=== PATIENT | female | born 1950 | race Caucasian/White ===

== ENCOUNTER 2016-11-24 03:21 | Inpatient (IN) | payer OTHER, MEDICAID ==
[~2016-11-24] VITALS: Ht 157.5 cm; Wt 44.3 kg
[~2016-11-24 03:21] MED LIST: ACTI1TAB PO; ALBU17IN INH; ALBU83IN INH; ALDA25TA2 PO; AMLO5TAB2 PO; ASPI1TAB PO; ASPI81CH PO; ATEN50TA2 PO; ATIV1TAB10 PO; ATRO0.063 INH; AZIT250T3 PO; BACITAB3 PO; CALC1CAP31 PO; CEFT1INJ65 IV; CEPA5.4L2 MT; COZA100T2 PO; DRIS50002 PO; FURO40TA2 PO; INCR1INH INH; LEVA500T PO; LEVA750T PO; LEVO125T41 PO; LEVO88TA3 PO; LEXA1TAB PO; LORA1TAB PO; MINO25TA PO; NORV5TAB PO; OCEA0.654; PRED10PA PO; PRED10TA PO; PRED5TA PO; PROT1TAB2 PO; RENATAB6 PO; SODI325T9 PO; SYMB80INH INH; SYNT137T7 PO; TYLE325T5 PO; prednisone PO
[2016-11-24] MEDS ORDERED: IPRATROPIUM 0.5MG/ALBUTEROL 2.5MG INH SOL UD 3ML (DUONEB)(J7620) As Ordered ONE ×2 (03:27→05:16)
[2016-11-24] MEDS ORDERED: methylPREDNISolone INJ 125 MG/2 ML VIAL (J2930) As Ordered ONE (03:42)
[2016-11-24 03:57] LABS: ABG BASE EXCESS -1.5 (-2.0-2.0); ABG DEVICE NASAL CANN; ABG HCO3 23.7 MEQ/L (22.0-26.0); ABG PARTIAL PRESSURE CO2 41.6 mmHg (35.0-45.0); ABG PARTIAL PRESSURE O2 73.9 mmHg (75.0-100.0); ABG STANDARD HCO3 23.2 MEQ/L (22.0-26.0); ABG TOTAL CO2 24.9 MEQ/L (23.0-31.0); ABG pH (ARTERIAL) 7.373 UNITS (7.350-7.450)
[2016-11-24 04:01] LABS: BASO % 0.7 % (0.0-1.0); EOS # 0.3 K/mm3 (0.0-0.50); EOS % 3.6 % (0.0-3.0); LARGE UNSTAINED CELL # 0.1 K/mm3 (0.0-0.4); LARGE UNSTAINED CELL % 1.5 % (0.0-4.0); LYMPH # 1.1 K/mm3 (1.5-4.5); LYMPH % 14.5 % (24.0-44.0); MEAN CORPUSCULAR HEMOGLOBIN 29.4 pg (27.0-33.0); MEAN CORPUSCULAR HGB CONC 31.3 g/dl (32.0-36.5); MEAN CORPUSCULAR VOLUME 94.1 fl (80.0-96.0); MONO # 0.4 K/mm3 (0.0-0.8); MONO % 4.9 % (0.0-5.0); NEUTROPHILS # 5.7 K/mm3 (1.8-7.7); NEUTROPHILS % 74.9 % (36.0-66.0); PLATELET COUNT, AUTOMATED 128 k/mm3 (150-450); RED CELL DISTRIBUTION WIDTH 16.7 % (11.5-14.5); WHITE BLOOD COUNT 7.6 K/mm3 (4.0-10.0)
[2016-11-24 04:12] LABS: CALCIUM LEVEL 8.3 MG/DL (8.8-10.2); CREATININE FOR GFR 4.95 MG/DL (0.55-1.02); GLOMERULAR FILTRATION RATE 9.3 (>45); POTASSIUM SERUM 4.5 MEQ/L (3.5-5.1)
[2016-11-24] MEDS: HEPARIN SOD (PORCINE) 5000 UNITS/ML VIAL SC SCH ×3 (06:00→21:56)
[2016-11-24] MEDS ORDERED: ACETAMINOPHEN TAB 650MG DOSE (2X325MG) PO PRN (06:15)
[2016-11-24] MEDS ORDERED: ALBUTEROL SULFATE 2.5 MG/0.5 ML INH NEB SOLN NEB PRN (06:15)
[2016-11-24] MEDS ORDERED: PRED25TA PO (06:23)
[2016-11-24] MEDS ORDERED: LOSA25TA8 PO (06:23)
--- NOTE | 2016-11-24 07:36 | HPE ---
DATE OF ADMISSION: 11/24/2016 PRIMARY CARE PROVIDER: Sarah Pickard NP HISTORY OF PRESENT ILLNESS: The patient is a 66-year-old female with a past medical history significant for end stage renal disease on dialysis, chronic obstructive pulmonary disease (COPD), hypothyroidism, depression/anxiety, chronic tobacco abuse who presented to [facility] on 11/24/2016 for acute worsening of shortness of breath. The patient stated since yesterday night, she started having increasing shortness of breath and increased cough, and the patient has a recent sick contact. The patient's granddaughter and son's girlfriend who live in the same house recently had flu like symptoms. Denies any associated symptoms. The patient has a diagnosis of COPD, however she continues to smoke at home. When the patient arrived in the emergency room, the patient received Solu-Medrol 125 mg IV times one and DuoNeb nebulizer treatments times four, however the patient continued to have significant wheezes. Therefore, the hospitalist team was called for admission. ALLERGIES: 1. CODEINE (gastrointestinal (GI) upset). 2. LISINOPRIL (angioedema of the tongue). HOME MEDICATIONS: - Synthroid 0.137 mg by mouth daily - Protonix 40 mg by mouth daily - Activella 1-0.5 mg one tablet by mouth daily - Ventolin two puffs inhalation every 4 hours as needed for shortness of breath - aspirin 81 mg by mouth daily - Lexapro 10 mg by mouth at bedtime - INCRUSE Ellipta 62.5 mcg inhalation twice a day - Atrovent 2 puffs inhalation four times a day as needed for shortness of breath - lorazepam 1 mg by mouth twice a day - multivitamin one tablet by mouth daily PAST MEDICAL HISTORY: Polycystic kidney disease. End stage renal disease on hemodialysis. Dialysis days are Tuesday, Tuesday, and Tuesday. COPD. Hypothyroidism. Anxiety/depression. Chronic tobacco abuse. PAST SURGICAL HISTORY: Right femur repair. Left forearm dialysis graft. Colonoscopy [place] [address] Ontiveros. SOCIAL HISTORY: Patient continues to smoke. Currently the patient smokes half a pack daily. At the most, the patient smoked more then one pack daily. The patient started smoking since 16 years old. Denies alcohol use. Denies any recreational drug use. REVIEW OF SYSTEMS: GENERAL: No fever, no chills. HEENT: No vision changes. No auditory changes. CARDIOVASCULAR: No chest pain. No palpitations. RESPIRATORY: Acute worsening shortness of breath since yesterday night. The patient has a diagnosis of COPD and increased cough frequency. GASTROINTESTINAL (GI): No nausea. No vomiting. No abdominal pain. No diarrhea. MUSCULOSKELETAL: No muscle pain or joint pain. NEUROLOGICAL: No numbness, no tingling. OBJECTIVE: VITAL SIGNS: Blood pressure is 179/104, pulse is 97, respirations 22, temperature 98.8, pulse oximetry is 98% with 1 liter nasal cannula. Body weight is 46.27 kg. Body height is 157.48 cm. GENERAL: Mild distress secondary to respiratory distress. Alert and oriented times three. HEENT: Normocephalic, atraumatic. Extraocular motors grossly intact. CARDIOVASCULAR: Very distant heart sounds. Positive S1 and S2, regular rate. Positive heart murmur. LUNGS: Significant expiratory wheezes throughout. No crackles can be appreciated. GASTROINTESTINAL (GI): Abdomen soft, nontender, nondistended. Bowel sounds present. No rebound, no guarding. EXTREMITIES: Mild trace edema, especially near the ankles. Otherwise, no significant findings. LABORATORY DATA: WBC 7.6, hemoglobin 11.5, hematocrit 36.7, platelet count 128. Sodium is 143, potassium 4.5, chloride is 10, carbon dioxide 28, BUN 26, creatinine 4.95, GFR is 9.3, fasting glucose 85, calcium 8.3, total CK is 98, Troponin I is 0.02, BNP is 727. Blood cultures are pending. Chest x-ray shows hyperventilation and COPD. Official results pending. ASSESSMENT/PLAN: 1. COPD exacerbation. The patient will be admitted to the medical/surgical floor on inpatient status. The patient will continue on IV Solu-Medrol. Will taper slowly. The patient will be on Rocephin and azithromycin. The patient will have breathing treatments as needed. 2. End stage renal disease. Will consult Dr. Chris Garces the petal shaper hand for dialysis today. 3. History of hypertension. Continue home blood pressure medications. 4. Hypothyroidism. Continue Synthroid. 5. History of polycystic kidney disease. 6. Anxiety/depression. Continue Lexapro. 7. Chronic tobacco abuse. The patient will be on nicotine patch. 8. Deep vein thrombosis (DVT) prophylaxis. The patient will be on heparin. MTDD
--- NOTE | 2016-11-24 07:42 | REP ---
Clinical: Shortness of breath . Comparison: 11/12/2016 . Findings: The mediastinum and cardiac silhouette are stable and within normal limits for portable technique. The lung louis are stable and clear without acute consolidation, effusion, or pneumothorax. Skeletal structures are intact. Impression: No acute cardiopulmonary process. Signed by Colin Mathew MD 11/24/2016 07:34 A
--- NOTE | 2016-11-24 08:39 | EDDOCDS ---
Nurse's Notes [facility] Name: Karina Blackmon Age: 66 yrs Sex: Female : 1950 Arrival Date: 11/24/2016 Time: 03:21 Bed 1 Private MD: Asa Mena Diagnosis: Hypoxemia;Chronic obstructive pulmonary disease with (acute) exacerbation;End stage renal disease Presentation: 11/24 03:38 Acuity: THIEN Level 2 nov 03:39 Presenting complaint: EMS states: FAMILY WAS CALLED BY PT COMPLAINING OF NOT FEELING neel well and increasing SOB. Went to bed earlier without complaints. pt states gradual increasing SOB x 2 hrs. Adult Sepsis Screening: The patient does not have new or worsening altered mentation. Patient has a respiratory rate of greater than or equal to 22 (1 point). Systolic blood pressure is greater than 100. Patient has a qSOFA score of 1- Negative Sepsis Screen. Suicide/Homicide risk assessment- the patient denies having any suicidal and/or homicidal ideations and does not present with any other emotional, behavioral or mental health complaints. Status: Patient is not a service supervisor or dependent. Transition of care: patient was not received from another setting of care. 03:39 Acuity: THIEN Level 2 neel 03:39 Method Of Arrival: Ambulance neel Triage Assessment: 03:42 General: Appears uncomfortable, Behavior is appropriate for age, cooperative. Pain: neel Denies pain. Cardiovascular: Rhythm is sinus rhythm. Respiratory: Onset: The symptoms/episode began/occurred 2 hrs, Airway is patent Respiratory effort is labored, Respiratory pattern is symmetrical, tachypnea Breath sounds with wheezes bilaterally. in right upper lobe, left upper lobe, right middle lobe, left lower lobe and right lower lobe. GI: Abdomen is distended. : Reports Renal Disease on Dialysis. 03:45 General: Strong bruit noted to left wrist forearm dialysis shunt.. neel Historical: - Allergies: Codeine Sulfate (Upset stomach); Lisinopril (angioedema to tongue); - Home Meds: 1. Activella 1-0.5 mg oral tab 1 tab once daily (Last dose: 11/23/2016 07:00) 2. aspirin 81 mg Oral TbEC 1 tab once daily (Last dose: 11/23/2016 07:00) 3. Atrovent 18 mcg/actuation Inhl aero 2 puff four times a day (Last dose: 11/23/2016 19:00) 4. albuterol sulfate 90 mcg/actuation Inhl aepb 2 puffs every 4-6 hours (Last dose: 11/23/2016 19:00) 5. Ativan 1 mg Oral tab 1 tab once daily (Last dose: 11/23/2016 19:00) 6. levothyroxine 100 mcg Oral tab once daily (Last dose: 11/23/2016 06:00) 7. Lexapro 10 mg Oral tab 1 tab once daily (Last dose: 11/23/2016 19:00) 8. minoxidil 2.5 mg Oral tab once daily 9. prednisone 2.5 mg oral tab 1 tab once daily (Last dose: 11/23/2016 07:00) 10. Arielle-Roby Rx 1-60-300 mg-mg-mcg oral tab daily (Last dose: 11/23/2016 07:00) 11. Tenormin 50 mg oral tab 1 tab once daily - PMHx: COPD; Hypertension; Hypothyroidism; Polycystic Kidney Disease; Renal Failure with Dialysis; - PSHx: Hip Arthroplasty, Right; - The history from nurses notes was reviewed: but there are no nursing notes, or only partial notes available at the time of my charting. - Social history: Smoking status: Patient uses tobacco products, current every day smoker. No barriers to communication noted, The patient speaks fluent Uzbek, Speaks appropriately for age. - : The pt / caregiver states he / she is not on anticoagulants. Home medication list is obtained from the patient. - Immunization history:: All immunizations up-to-date. - Exposure Risk Screening:: None identified. - Family history: Not pertinent. - Social history:: the patient is a former smoker, the patient does not drink alcohol. Screenin:48 Screening information is obtained from the patient. Fall risk: At risk due to age. neel Assistance ADL's: Requires assistance with housework, assistance is provided by family members. Abuse/DV Screen: The patient / caregiver reports he/she is: not in a situation that causes fear, pain or injury. Nutritional screening: On renal diet. Advance Directives: Currently, there is no health care proxy. There is no active DNR order. There is no living will. Advance directive information has not previously been placed in an [facility] medical record. home support is adequate. Assessment: 03:46 General: See triage assessment. General: Appears in no apparent distress, Behavior is neel appropriate for age, cooperative, pleasant. Neurological: No deficits noted. Cardiovascular: Rhythm is sinus rhythm. Cardiovascular: Heart tones present. 04:31 Reassessment: Patient appears in no apparent distress at this time. Patient states neel symptoms have improved. General: Behavior is appropriate for age, cooperative. Neurological: No deficits noted. Cardiovascular: Rhythm is sinus rhythm. Respiratory: Airway is patent Respiratory effort is even, unlabored, Respiratory pattern is regular, Breath sounds with wheezes expiratory. GI: Abdomen is distended. Derm: Skin is pink, warm & dry. 05:30 Reassessment: Patient appears in no apparent distress at this time. General: Appears neel comfortable, Behavior is appropriate for age, cooperative. Neurological: No deficits noted. Cardiovascular: Rhythm is sinus rhythm. Respiratory: Airway is patent Respiratory effort is even, unlabored, Respiratory pattern is regular, Breath sounds with wheezes bilaterally. Derm: Skin is pink, warm & dry. 06:54 Reassessment: Patient appears in no apparent distress at this time. General: Appears in neel no apparent distress, comfortable, Behavior is appropriate for age, cooperative. Neurological: No deficits noted. Cardiovascular: Rhythm is sinus rhythm. Respiratory: Airway is patent Respiratory effort is even, unlabored. Derm: Skin is pink, warm & dry. 07:30 Reassessment: Patient appears in no apparent distress at this time. Patient denies pain kr3 at this time. 08:22 Reassessment: Patient appears in no apparent distress at this time. Pain: Denies pain. kr3 Respiratory: Airway is patent Respiratory effort is even, unlabored. Derm: Skin is pink, warm & dry. Vital Signs: 03:26 BP 209 / 121; Pulse 110; Resp 18 S; Temp 98.8(TE); Pulse Ox 97% on R/A; Weight 46.27 kg jp4 (R); Height 5 ft. 2 in. (157.48 cm) (R); Pain 0/10; 04:00 BP 188 / 110 (auto/); neel 04:00 Pulse 88 MON; Resp 24 S; Pulse Ox 100% on 1 lpm NC; neel 04:15 BP 171 / 103 (auto/); neel 04:15 Pulse 81 MON; Resp 22 S; Pulse Ox 97% on 1 lpm NC; neel 04:30 BP 169 / 104 (auto/); neel 04:30 Pulse 85 MON; Resp 18 S; Pulse Ox 97% on 1 lpm NC; neel 04:45 BP 179 / 99 (auto/); neel 04:45 Pulse 81 MON; Resp 22 S; Pulse Ox 99% on 1 lpm NC; neel 05:00 BP 170 / 99 (auto/); neel 05:00 Pulse 82 MON; Resp 20 S; Pulse Ox 96% on 1 lpm NC; neel 05:15 BP 178 / 102 (auto/); neel 05:15 Pulse 87 MON; Resp 24 S; Pulse Ox 94% on 1 lpm NC; neel 05:30 BP 179 / 104 (auto/); neel 05:30 Pulse 97 MON; Resp 22 S; Pulse Ox 98% on 1 lpm NC; neel 05:45 BP 180 / 103 (auto/); neel 05:45 Pulse 89 MON; Resp 22 S; Pulse Ox 94% on 1 lpm NC; neel 06:00 BP 167 / 101 (auto/); neel 06:00 Pulse 97 MON; Resp 20 S; Pulse Ox 96% on 1 lpm NC; neel 06:15 BP 180 / 102 (auto/); neel 06:16 Pulse 91 MON; Resp 20 S; Pulse Ox 96% on 1 lpm NC; neel 06:30 BP 180 / 102 (auto/); neel 06:30 Pulse 85 MON; Resp 18 S; Pulse Ox 95% on 1 lpm NC; neel 06:45 BP 179 / 100 (auto/); neel 06:45 Pulse 83 MON; Resp 20 S; Pulse Ox 97% on 1 lpm NC; neel 07:26 BP 173 / 92; Pulse 80; Resp 16; Temp 98.9(O); Pulse Ox 96% on 1 lpm NC; Pain 0/10; kr3 07:45 BP 177 / 106 (auto/); kr3 07:45 Pulse 93 MON; kr3 08:00 BP 174 / 105 (auto/); kr3 08:00 Pulse 81 MON; kr3 08:15 BP 177 / 103 (auto/); kr3 08:15 Pulse 81 MON; kr3 03:26 Body Mass Index 18.66 (46.27 kg, 157.48 cm) 4 Vitals: 08:22 Log In Time N/A - ambulance arrival. kr3 ED Course: 03:22 Patient visited by Vasile Alfredo, Maintenance Mechanic Helper. ml3 03:22 Patient moved to Waiting ml3 03:23 Asa Mena is Private Physician. ml3 03:23 Tia Valverde,RN is Primary Nurse. ml3 03:23 Julio Grace MD is Attending Physician. pc 03:23 Patient visited by Julio Grace MD. pc 03:23 Patient moved to 1 ml3 03:27 Patient visited by Timo Foster. jp4 03:30 Patient visited by Ayde Del Valle PCA. lizeth 03:30 EKG done. (by ED staff). Reviewed by Julio Grace MD. lizeth 03:35 Inserted saline lock: 20 gauge in right forearm and blood collected. neel 03:38 Triage Initiated nov 03:50 BLOOD CULTURES Sent. neel 03:51 -Arterial Blood Gas Sent. neel 04:28 Patient visited by Tia Valverde RN. neel 05:38 Patient visited by Julio Grace MD. pc 05:53 Tiffanie Monroe medical technologist clinical. ys2 05:53 Tiffanie Monroe is Hospitalizing Provider. pc 06:24 [facility] Payment Agreement was scanned into [employer] and attached to record. jp5 07:07 INFLUENZA A&B RAPID ANTIGEN Sent. kr3 07:09 Primary Nurse role handed off by Tia Valverde,RN neel 07:26 The patient / caregiver is instructed regarding the plan of care and ED course. Patient lilly has correct armband on for positive identification. Placed in gown. Bed in low position. Call light in reach. Side rails up X2. equipment monitor phototypesetting on. Pulse ox on. NIBP on. 07:44 Chest, 1 View Returned. EDMS 08:18 No procedures done that require assistance. kr3 Administered Medications: 03:28 Drug: Albuterol-Ipratropium 1 neb [ipratropium-albuterol 0.5 mg-3 mg(2.5 mg base)/3 mL jh6 nebulization soln (1 neb)] Route: Nebulizer; 03:45 Drug: Solu-MEDROL 125 mg [Solu-Medrol 500 mg intravenous solution (125 mg)] Route: IVP; lf1 Site: right wrist; 03:52 Drug: Albuterol-Ipratropium 1 neb [ipratropium-albuterol 0.5 mg-3 mg(2.5 mg base)/3 mL [facility] nebulization soln (1 neb)] Route: Nebulizer; 04:30 Drug: Albuterol-Ipratropium 1 neb [ipratropium-albuterol 0.5 mg-3 mg(2.5 mg base)/3 mL 6 nebulization soln (1 neb)] Route: Nebulizer; 05:18 Drug: Albuterol-Ipratropium 1 neb [ipratropium-albuterol 0.5 mg-3 mg(2.5 mg base)/3 mL [facility] nebulization soln (1 neb)] Route: Nebulizer; Output: 06:18 Urine: 200.00ml; Stool: 1 (Formed Stool) ; Total: 200.00ml. neel RT: 03:25 O2 via Venturi mask \T\ 3L/min - 28%. [facility] 03:28 Initial Med Neb Given as ordered Patient was instructed and evaluated on procedure 6 Patient tolerated procedure well without adverse effect. Respiratory: Airway is patent Respiratory effort is even, labored, Respiratory pattern is regular symmetrical, Breath sounds are coarse in right upper lobe and left upper lobe Breath sounds are diminished in right upper lobe, left upper lobe, right middle lobe, left lower lobe and right lower lobe Breath sounds with wheezes in right upper lobe, left upper lobe, right middle lobe, left lower lobe and right lower lobe at expiration. 03:45 ABG's drawn from right radial artery pressure held for 5 minutes no bleeding noted [facility] pressure bandage applied specimen sent pt. tolerated well. 03:52 Subsequent Med Neb Given as ordered Patient was reinforced on procedure Patient 6 tolerated procedure well without adverse effect. Respiratory: Airway is patent Respiratory effort is even, unlabored, Respiratory pattern is regular symmetrical, Breath sounds are diminished in right upper lobe, left upper lobe, right middle lobe, left lower lobe and right lower lobe Breath sounds with wheezes in right upper lobe, left upper lobe, right middle lobe, left lower lobe and right lower lobe at expiration. 04:33 Subsequent Med Neb Given as ordered Patient was reinforced on procedure Patient 6 tolerated procedure well without adverse effect. O2 via nasal cannula \T\ 1L/min. Respiratory: Airway is patent Respiratory effort is even, unlabored, Respiratory pattern is regular symmetrical, Breath sounds with wheezes in right upper lobe, left upper lobe, right middle lobe, left lower lobe and right lower lobe at expiration. 05:18 Subsequent Med Neb Given as ordered Patient was reinforced on procedure Patient jh6 tolerated procedure well without adverse effect. Respiratory: Airway is patent Respiratory effort is even, unlabored, Respiratory pattern is regular symmetrical, Breath sounds are diminished in left lower lobe and right lower lobe Breath sounds with wheezes in right upper lobe, left upper lobe, right middle lobe, left lower lobe and right lower lobe at expiration. Order Results: Lab Order: -Arterial Blood Gas; SPEC'M 11/24/16 03:52 Test: ABG pH (ARTERIAL); Value: 7.373; Range: 7.350-7.450; Units: UNITS; Status: F Test: ABG PARTIAL PRESSURE CO2; Value: 41.6; Range: 35.0-45.0; Units: mmHg; Status: F Test: ABG PARTIAL PRESSURE O2; Value: 73.9; Range: 75.0-100.0; Abnormal: Below low normal; Units: mmHg; Status: F Test: ABG TOTAL CO2; Value: 24.9; Range: 23.0-31.0; Units: MEQ/L; Status: F Test: ABG HCO3; Value: 23.7; Range: 22.0-26.0; Units: MEQ/L; Status: F Test: ABG BASE EXCESS; Value: -1.5; Range: -2.0-2.0; Status: F Test: ABG STANDARD HCO3; Value: 23.2; Range: 22.0-26.0; Units: MEQ/L; Status: F Test: ABG O2 SATURATION; Value: 94.9; Range: 95.0-99.0; Abnormal: Below low normal; Units: %; Status: F Test: ABG DEVICE; Value: NASAL PAULA; Status: F Lab Order: B-Type Natiuretic Peptide; SPEC'11/24/16 03:36 Test: BRAIN NATRIURETIC PEPTIDE; Value: 727; Range: <100; Abnormal: Above high normal; Units: PG/ML; Status: F Lab Order: Basic Metabolic Profile; SPEC'11/24/16 03:36 Test: GLUCOSE, FASTING; Value: 85; Range: 80-110; Units: MG/DL; Status: F Test: BLOOD UREA NITROGEN; Value: 26; Range: 7-18; Abnormal: Above high normal; Units: MG/DL; Status: F Test: CREATININE FOR GFR; Value: 4.95; Range: 0.55-1.02; Abnormal: Above high normal; Units: MG/DL; Status: F Test: GLOMERULAR FILTRATION RATE; Value: 9.3; Range: >45; Abnormal: Below low normal; Status: F Test: SODIUM LEVEL; Value: 143; Range: 136-145; Units: MEQ/L; Status: F Test: POTASSIUM SERUM; Value: 4.5; Range: 3.5-5.1; Units: MEQ/L; Status: F Test: CHLORIDE LEVEL; Value: 107; Range: 98-107; Units: MEQ/L; Status: F Test: CARBON DIOXIDE LEVEL; Value: 28; Range: 21-32; Units: MEQ/L; Status: F Test: ANION GAP; Value: 8; Range: 8-16; Units: MEQ/L; Status: F Test: CALCIUM LEVEL; Value: 8.3; Range: 8.8-10.2; Abnormal: Below low normal; Units: MG/DL; Status: F Test Note: ; Units are mL/min/1.73 m2 Chronic Kidney Disease Staging per NKF: Stage I & II GFR >=60 Normal to Mildly Decreased Stage III GFR 30-59 Moderately Decreased Stage IV GFR 15-29 Severely Decreased Stage V GFR <15 Very Little GFR Left ESRD GFR <15 on EARLY MORNING BABYSITTER Lab Order: CBC with Diff; SPEC'M 11/24/16 03:36 Test: WHITE BLOOD COUNT; Value: 7.6; Range: 4.0-10.0; Units: K/mm3; Status: F Test: RED BLOOD COUNT; Value: 3.90; Range: 4.00-5.40; Abnormal: Below low normal; Units: M/mm3; Status: F Test: HEMOGLOBIN; Value: 11.5; Range: 12.0-16.0; Abnormal: Below low normal; Units: g/dl; Status: F Test: HEMATOCRIT; Value: 36.7; Range: 36.0-47.0; Units: %; Status: F Test: MEAN CORPUSCULAR VOLUME; Value: 94.1; Range: 80.0-96.0; Units: fl; Status: F Test: MEAN CORPUSCULAR HEMOGLOBIN; Value: 29.4; Range: 27.0-33.0; Units: pg; Status: F Test: MEAN CORPUSCULAR HGB CONC; Value: 31.3; Range: 32.0-36.5; Abnormal: Below low normal; Units: g/dl; Status: F Test: RED CELL DISTRIBUTION WIDTH; Value: 16.7; Range: 11.5-14.5; Abnormal: Above high normal; Units: %; Status: F Test: PLATELET COUNT, AUTOMATED; Value: 128; Range: 150-450; Abnormal: Below low normal; Units: k/mm3; Status: F Test: NEUTROPHILS %; Value: 74.9; Range: 36.0-66.0; Abnormal: Above high normal; Units: %; Status: F Test: LYMPH %; Value: 14.5; Range: 24.0-44.0; Abnormal: Below low normal; Units: %; Status: F Test: MONO %; Value: 4.9; Range: 0.0-5.0; Units: %; Status: F Test: EOS %; Value: 3.6; Range: 0.0-3.0; Abnormal: Above high normal; Units: %; Status: F Test: BASO %; Value: 0.7; Range: 0.0-1.0; Units: %; Status: F Test: LARGE UNSTAINED CELL %; Value: 1.5; Range: 0.0-4.0; Units: %; Status: F Test: NEUTROPHILS #; Value: 5.7; Range: 1.8-7.7; Units: K/mm3; Status: F Test: LYMPH #; Value: 1.1; Range: 1.5-4.5; Abnormal: Below low normal; Units: K/mm3; Status: F Test: MONO #; Value: 0.4; Range: 0.0-0.8; Units: K/mm3; Status: F Test: EOS #; Value: 0.3; Range: 0.0-0.50; Units: K/mm3; Status: F Test: BASO #; Value: 0.0; Range: 0.0-0.2; Units: K/mm3; Status: F Test: LARGE UNSTAINED CELL #; Value: 0.1; Range: 0.0-0.4; Units: K/mm3; Status: F Lab Order: Cardiac Injury Profile; SPEC'M 11/24/16 03:36 Test: CPK CREATINE PHOSPHOKINASE; Value: 98; Range: 26-192; Units: U/L; Status: F Test: CK-MB VALUE MASS; Value: 2.5; Range: 0.0-3.6; Units: NG/ML; Status: F Test: MB/CK RELATIVE INDEX; Value: 2.55; Range: < OR =4; Status: F Test Note: ; DIAGNOSIS CRITERIA MMB ng/ml Relative Index (RI) NON-AMI < or = 5 N/A [place] ZONE > 5 < or = 4 AMI > 5 > 4 Lab Order: Troponin; SPEC'M 11/24/16 03:36 Test: TROPONIN I; Value: 0.02; Range: < 0.10; Units: NG/ML; Status: F Test Note: ; Troponin I Reference Interval for [employer] LOCI: 99th Percentile= 0.00-0.045 ng/ml Risk Stratification: <= 0.10 ng/ml Decreased Risk for Adverse Clinical Events. 0.10-1.50 ng/ml Increased Risk for Adverse Clinical Events. Evaluation of additional criterion and/or repeat testing in 2-6 hours is suggested to rule out myocardial damage. >= 1.50 ng/ml Indicative of Myocardial Injury. Lab Order: INFLUENZA A&B RAPID ANTIGEN; SPEC'M 11/24/16 07:06 Test: INFLUENZA A RAPID SCR by ICA; Value: INFLUENZA A RESULTS NEGATIVE; Status: F Test: INFLUENZA A RAPID SCR by ICA; Value: Comments:; Status: F Test: INFLUENZA B RAPID SCR by ICA; Value: INFLUENZA B RESULTS NEGATIVE; Status: F Test Note: ; The Influenza test is a direct rapid immunoassay for the qualitative detection of Influenza viral antigen. Cell culture (Viral Culture) testing should be considered to confirm NEGATIVE results and to assist in detecting other viruses that can provide similar clinical symptoms. Please contact the lab within 24 hours ([phone]) if confirmatory testing is desired. Radiology Order: Chest, 1 View Test: Chest, 1 View REASON FOR EXAMINATION: Shortness of Breath; Clinical: Shortness of breath .; ; Comparison: 11/12/2016 .; ; Findings:; The mediastinum and cardiac silhouette are stable and within normal limits for; portable technique. The lung louis are stable and clear without acute; consolidation, effusion, or pneumothorax. Skeletal structures are intact.; ; Impression:; No acute cardiopulmonary process.; ; ; Signed by; Colin Mathew MD 11/24/2016 07:34 A; Outcome: 05:53 Decision to Hospitalize by Provider. 08:18 Discharge Assessment: patient administered narcotics - no. The following High Risk kr3 Discharge criteria are identified: None. Admitted to Med/Surg accompanied by tech, via stretcher, with oxygen, with chart. Condition: stable. No special radiology studies were completed. Property :Personal belongings accompany Pt. 08:38 Patient left the ED. kr3 Signatures: Dispatcher [employer] EDMS Julio Grace MD MD pc Newman, Julieta Mccollum, RN Tia KulkarniRN Vasile Berg cas, Maintenance Mechanic Helper Unit ml3 Trish NewbyRN Juana Peguero RN RN lf1 Ayde Del Valle, GROUND HEL[employer]RE[employer] RAILWAY GR[employer] RAILWAY Toni Burgos jh6 Timo Foster jp4 Adolph Lozoya jp5 Tiffanie Monroe ys2 MTDD
--- NOTE | 2016-11-24 08:39 | EDDOCDS ---
Physician Documentation [facility] Name: Karina Blackmon Age: 66 yrs Sex: Female : 1950 Arrival Date: 11/24/2016 Time: 03:21 Bed 1 Private MD: Asa Mena Disposition: 11/24 05:51 Critical Care:. pc Disposition: 11/24/16 05:53 Hospitalization ordered by Tiffanie Monroe for Inpatient Admission. Preliminary diagnosis are Hypoxemia, Chronic obstructive pulmonary disease with (acute) exacerbation, End stage renal disease. - Bed requested for 4 [place]. - Status is Inpatient Admission. kr3 - Condition is Stable. - Problem is an acute exacerbation. - Symptoms have improved. HPI: 03:26 This 66 yrs old Female presents to ER with complaints of Shortness Of Breath. pc 03:26 The history is obtained from the patient, EMS providers. A reliable history and/or pc examination was not able to be obtained, due to patient distress. The patient presents with shortness of breath, with a prior history of COPD. The symptoms began gradually 2 days ago, and became worse just prior to arrival. The symptoms are continuous, and are steadily getting worse. There were no precipitating events that led to the current complaints. The patient has shortness of breath at rest. At their worst, the symptoms were severe. In the emergency department, the symptoms are moderate. The patient's dyspnea was accompanied with heart racing, anxiety. The patient has experienced similar episodes in the past, chronically. The patient has been recently been admitted at [facility], was discharged last week, due to lower GI bleeding and anemia, requiring transfusion of PRBC x 2. Historical: - Allergies: Codeine Sulfate (Upset stomach); Lisinopril (angioedema to tongue); - Home Meds: 1. Activella 1-0.5 mg oral tab 1 tab once daily (Last dose: 11/23/2016 07:00) 2. aspirin 81 mg Oral TbEC 1 tab once daily (Last dose: 11/23/2016 07:00) 3. Atrovent 18 mcg/actuation Inhl aero 2 puff four times a day (Last dose: 11/23/2016 19:00) 4. albuterol sulfate 90 mcg/actuation Inhl aepb 2 puffs every 4-6 hours (Last dose: 11/23/2016 19:00) 5. Ativan 1 mg Oral tab 1 tab once daily (Last dose: 11/23/2016 19:00) 6. levothyroxine 100 mcg Oral tab once daily (Last dose: 11/23/2016 06:00) 7. Lexapro 10 mg Oral tab 1 tab once daily (Last dose: 11/23/2016 19:00) 8. minoxidil 2.5 mg Oral tab once daily 9. prednisone 2.5 mg oral tab 1 tab once daily (Last dose: 11/23/2016 07:00) 10. Arielle-Roby Rx 1-60-300 mg-mg-mcg oral tab daily (Last dose: 11/23/2016 07:00) 11. Tenormin 50 mg oral tab 1 tab once daily - PMHx: COPD; Hypertension; Hypothyroidism; Polycystic Kidney Disease; Renal Failure with Dialysis; - PSHx: Hip Arthroplasty, Right; - The history from nurses notes was reviewed: but there are no nursing notes, or only partial notes available at the time of my charting. - Social history: Smoking status: Patient uses tobacco products, current every day smoker. No barriers to communication noted, The patient speaks fluent German, Speaks appropriately for age. - : The pt / caregiver states he / she is not on anticoagulants. Home medication list is obtained from the patient. - Immunization history:: All immunizations up-to-date. - Exposure Risk Screening:: None identified. - Family history: Not pertinent. - Social history:: the patient is a former smoker, the patient does not drink alcohol. ROS: 03:26 All systems are negative except as listed. The gastrointestinal and genitourinary pc components are also addressed in the HPI. Exam: 03:26 General Appearance: alert, the patient is in moderate distress. pc 03:26 EENT: normal eye inspection, ears, nose and throat normal, pharynx normal, mucous membranes moist 03:26 Neck: normal inspection. 03:26 Respiratory: the patient is in moderate respiratory distress, with retractions noted, auscultation reveals wheezes, diffusely, decreased air entry noted throughout speaks in 3 word sentences. 03:26 Cardiovascular: normal rhythm, no jugular venous distension appreciated, no murmurs, no gallop, no friction rub, the heart rate is tachycardic, at 110 bpm. 03:26 Abdomen: non-tender, non-distended, no organomegaly. 03:26 Skin: normal color, warm, dry. 03:26 Extremities: non-tender, normal range of motion of all joints, no pedal edema. 03:26 Neuro: alert, oriented to person, place and time, cranial nerves normal as tested, no motor deficits, no sensory deficits. Vital Signs: 03:26 BP 209 / 121; Pulse 110; Resp 18 S; Temp 98.8(TE); Pulse Ox 97% on R/A; Weight 46.27 kg jp4 / 102.01 lbs (R); Height 5 ft. 2 in. (157.48 cm) (R); Pain 0/10; 04:00 BP 188 / 110 (auto/); neel 04:00 Pulse 88 MON; Resp 24 S; Pulse Ox 100% on 1 lpm NC; neel 04:15 BP 171 / 103 (auto/); neel 04:15 Pulse 81 MON; Resp 22 S; Pulse Ox 97% on 1 lpm NC; neel 04:30 BP 169 / 104 (auto/); neel 04:30 Pulse 85 MON; Resp 18 S; Pulse Ox 97% on 1 lpm NC; neel 04:45 BP 179 / 99 (auto/); neel 04:45 Pulse 81 MON; Resp 22 S; Pulse Ox 99% on 1 lpm NC; neel 05:00 BP 170 / 99 (auto/); neel 05:00 Pulse 82 MON; Resp 20 S; Pulse Ox 96% on 1 lpm NC; neel 05:15 BP 178 / 102 (auto/); neel 05:15 Pulse 87 MON; Resp 24 S; Pulse Ox 94% on 1 lpm NC; neel 05:30 BP 179 / 104 (auto/); neel 05:30 Pulse 97 MON; Resp 22 S; Pulse Ox 98% on 1 lpm NC; neel 05:45 BP 180 / 103 (auto/); neel 05:45 Pulse 89 MON; Resp 22 S; Pulse Ox 94% on 1 lpm NC; neel 06:00 BP 167 / 101 (auto/); neel 06:00 Pulse 97 MON; Resp 20 S; Pulse Ox 96% on 1 lpm NC; neel 06:15 BP 180 / 102 (auto/); neel 06:16 Pulse 91 MON; Resp 20 S; Pulse Ox 96% on 1 lpm NC; neel 06:30 BP 180 / 102 (auto/); neel 06:30 Pulse 85 MON; Resp 18 S; Pulse Ox 95% on 1 lpm NC; neel 06:45 BP 179 / 100 (auto/); neel 06:45 Pulse 83 MON; Resp 20 S; Pulse Ox 97% on 1 lpm NC; neel 07:26 BP 173 / 92; Pulse 80; Resp 16; Temp 98.9(O); Pulse Ox 96% on 1 lpm NC; Pain 0/10; kr3 07:45 BP 177 / 106 (auto/); kr3 07:45 Pulse 93 MON; kr3 08:00 BP 174 / 105 (auto/); kr3 08:00 Pulse 81 MON; kr3 08:15 BP 177 / 103 (auto/); kr3 08:15 Pulse 81 MON; kr3 03:26 Body Mass Index 18.66 (46.27 kg, 157.48 cm) jp4 MDM: 03:25 Solu-MEDROL 125 mg IVP once ordered. pc 03:25 -Blood Culture (Adults Only), peripheral from different site, or from device/port/PICC pc etc. if present ordered. 03:25 Inclusion Paraeducator/Pulse Ox/q 15 min VS ordered. pc 03:25 IV Saline Lock ordered. pc 03:25 Rhythm Strip to chart ordered. pc 03:25 Oxygen (enter rate/delivery method/parameters) ordered. pc 03:25 Albuterol-Ipratropium 1 neb Nebulizer every 20 minutes x3 ordered. pc 03:26 -Blood Culture (Adults Only), peripheral from different site, or from device/port/PICC ml3 etc. if present complete. 03:26 -Arterial Blood Gas Ordered. EDMS 03:26 B-Type Natiuretic Peptide Ordered. EDMS 03:26 Basic Metabolic Profile Ordered. EDMS 03:26 CBC with Diff Ordered. EDMS 03:26 Cardiac Injury Profile Ordered. EDMS 03:26 Troponin Ordered. EDMS 03:26 -Blood Culture Ordered. EDMS 03:26 Chest, 1 View Ordered. EDMS 03:26 ECG WITH READING ER PHYS+CARDIAG ordered. EDMS 03:26 Differential diagnosis: Chronic Obstructive Pulmonary Disease pneumonia. Plan: labs, pc meds, nebs, imaging, EKG. 03:27 BLOOD CULTURES Ordered. EDMS 03:32 Test interpretation: EKG. pc 04:07 -Arterial Blood Gas Reviewed. pc 04:07 CBC with Diff Reviewed. pc 05:00 B-Type Natiuretic Peptide Reviewed. pc 05:00 Basic Metabolic Profile Reviewed. pc 05:00 Cardiac Injury Profile Reviewed. pc 05:00 Troponin Reviewed. pc 05:00 Albuterol-Ipratropium 1 neb Nebulizer every 20 minutes x3 ordered. pc 05:00 Call Respiratory ordered. pc 05:06 Call Respiratory complete. neel 05:51 BED REQUEST+ADM ordered. EDMS 05:51 Antibiotic administration: Not indicated, the patient does not have an appreciated pc infiltrate. Data reviewed: old medical records, vital signs, nurses notes, EKG(s), lab test results, all radiology studies and available results. Test interpretation: LAB - all labs as ordered have been reviewed, interpreted and considered in the overall management of the clinical presentation; Arterial blood gas is normal. X-RAY - interpreted by de, 1 view chest chronic obstructive pulmonary disease pattern. The patient has been re-examined and re-evaluated. The patient's symptoms have mildly improved after treatment. Physician consultation: Dr. Chris Garces MD regarding consult. 05:51 Physician consultation: Dr. Tiffanie Monroe was contacted at 05:52, regarding admission, and pc will see patient in ED, shortly. Disposition: The historical points, examination findings, and any diagnostic results supporting the provided diagnosis, were discussed with the patient or legal guardian. The need for further work-up and/or treatment in the hospital was explained. 06:09 Admission / Observation Status ordered. EDMS 06:10 2 GRAM SODIUM DIET ordered. EDMS 06:24 [facility] Payment Agreement was scanned into [employer] and attached to record. jp5 06:24 Financial registration complete. jp5 06:31 INFLUENZA A&B RAPID ANTIGEN Ordered. EDMS EC:32 Rate is 85 beats/min. Rhythm is regular, Normal Sinus Rhythm with PACs. QRS [place] is pc Normal. AR interval is normal. QRS interval is normal. QT interval is normal. No Q waves. T waves are Normal. No ST changes noted. Clinical impression: Normal Sinus Rhythm. Administered Medications: 03:28 Drug: Albuterol-Ipratropium 1 neb [ipratropium-albuterol 0.5 mg-3 mg(2.5 mg base)/3 mL jh6 nebulization soln (1 neb)] Route: Nebulizer; 03:45 Drug: Solu-MEDROL 125 mg [Solu-Medrol 500 mg intravenous solution (125 mg)] Route: IVP; lf1 Site: right wrist; 03:52 Drug: Albuterol-Ipratropium 1 neb [ipratropium-albuterol 0.5 mg-3 mg(2.5 mg base)/3 mL jh6 nebulization soln (1 neb)] Route: Nebulizer; 04:30 Drug: Albuterol-Ipratropium 1 neb [ipratropium-albuterol 0.5 mg-3 mg(2.5 mg base)/3 mL jh6 nebulization soln (1 neb)] Route: Nebulizer; 05:18 Drug: Albuterol-Ipratropium 1 neb [ipratropium-albuterol 0.5 mg-3 mg(2.5 mg base)/3 mL jh6 nebulization soln (1 neb)] Route: Nebulizer; Critical Care Time: 05:51 Critical care time: Bedside Care: 35 minutes, Consultation: 20 minutes. Total time: 55 pc minutes Signatures: Dispatcher [employer] EDJulio Lino MD MD pc Sovie, CarolynRN RN Vasile Mock, Tool Repairer Bench Unit ml3 Trish Newby RN RN 3 Adolph Lozoya jp5 Tu Monge RN RN [facility] Juana Hawk RN 1 Toni Couch 6 The chart was reviewed and I authenticate all verbal orders and agree with the evaluation and treatment provided.Attachments: 06:24 [facility] Payment Agreement jp5 [facility]
[2016-11-24 08:45] VITALS: BP 170/90
[2016-11-24] MEDS: NICOTINE 14 MG/24 HR TRANSDERMAL TD SCH (09:00)
[2016-11-24] MEDS: LOSARTAN 50 MG TAB PO SCH (10:18)
[2016-11-24] MEDS: ATENOLOL 25 MG TAB PO SCH (10:18)
[2016-11-24] MEDS: cefTRIAXone SOD 2 GM in D5W MINI-BAG PLUS 50 ML IV SCH (10:18)
[2016-11-24] MEDS: LORazepam 1 MG TAB PO PRN (10:22)
[2016-11-24] MEDS: LEVOTHYROXINE 0.137 MG TAB (137MCG) PO SCH (10:50)
[2016-11-24] MEDS ORDERED: BUMETANIDE 1 MG/4 ML INJ (S0171) IV ONE (11:00)
[2016-11-24] MEDS: AZITHROMYCIN 500 MG, VIAL MATE ADAPTER 1 EACH in D5W 250 ML IV SCH (11:30)
--- NOTE | 2016-11-24 13:32 | CR ---
DATE OF CONSULTATION: 11/24/2016 REQUESTING PHYSICIAN: Dr. Monroe. CONSULTING PHYSICIAN: Dr. Garces. REASON FOR CONSULTATION: Management of end-stage renal disease and hemodialysis. CHIEF COMPLAINT: Patient presented to emergency room last night with progressive shortness of breath. HISTORY OF PRESENT ILLNESS: Karina Blackmon is a 66-year-old female with past medical history of end-stage renal disease secondary to autosomal dominant polycystic kidney disease. She is currently hemodialysis dependent. Her schedule is every Tuesday, Tuesday and Tuesday. She has history of chronic obstructive pulmonary disease (COPD) as well and she is an active smoker. She presented to [facility] emergency room (ER) last night for progressive worsening shortness of breath for about two days. She also had cough. She denies any fever, chills, rigors. Patient does report positive sick contacts. Her family members at home had flu-like symptoms as well. Patient was given steroids and nebulizations at night, and she does report some improvement of her symptoms. Of note, patient was on losartan, doxazosin, and beta-gregory upon recent admission a few weeks ago, and those medications were stopped because patient was hypotensive on arrival in the emergency room. Patient was found to have very high blood pressures today in the morning. She has only been taking losartan 25 mg by mouth daily, which she started about two days ago. PAST MEDICAL HISTORY: Is positive for: 1. Autosomal dominant polycystic kidney disease. 2. End-stage renal disease on hemodialysis every Tuesday, Tuesday, Tuesday. 3. Chronic obstructive pulmonary disease (COPD). 4. Hypothyroidism. 5. History of anxiety and depression. 6. History of anemia secondary to end-stage renal disease. PAST SURGICAL HISTORY: 1. Status post right femur surgery. 2. Left forearm atrioventricular (AV) graft placement. 3. Status post colonoscopy in 2006. ALLERGIES: Patient is allergic to LISINOPRIL and CODEINE. HOME MEDICATIONS: - Activella one tablet by mouth daily - albuterol as needed - aspirin 81 mg daily - Lexapro 10 mg nightly - Incruse Ellipta 62.5 mcg twice a day - Atrovent two puff as needed - levothyroxine 136 mcg by mouth daily - Ativan 1 mg by mouth twice a day - losartan 25 mg by mouth daily - Protonix 40 mg by mouth daily - prednisone 2.5 mg by mouth daily - Arielle-Roby one tablet daily FAMILY HISTORY: Positive for polycystic kidney disease. SOCIAL HISTORY: Patient is an active smoker. She smokes about one-half pack every day. She denies any drug abuse and she denies any alcohol abuse as well. REVIEW OF SYSTEMS: CONSTITUTIONAL: Patient denies any fever, chills or weakness. EYES: She denies any recent blurry vision or eye pain. EARS, NOSE AND THROAT (ENT): She denies any ear discharge, sore throat, dysphagia, or odynophagia. CARDIOVASCULAR: She denies any chest pain or palpitations, RESPIRATORY: She reports worsening shortness of breath and history of chronic obstructive pulmonary disease (COPD). GASTROINTESTINAL (GI): She denies any abdominal pain, constipation or diarrhea. MUSCULOSKELETAL: She denies any muscle aches and pains. CENTRAL NERVOUS SYSTEM: She denies any history of strokes or seizure disorder. SKIN: She denies any rashes or ulcers. PSYCHOLOGICAL: She reports history of anxiety and depression. HEMATOLOGICAL/ONCOLOGIC: She reports history of anemia secondary to end-stage renal disease. ENDOCRINE: She reports history of secondary hyperparathyroidism. GENITOURINARY: She a history of polycystic kidneys and she has end-stage renal disease. PHYSICAL EXAMINATION: GENERAL: Patient is awake, alert, oriented times three, laying in bed, in mild respiratory distress. VITAL SIGNS: Temperature 99.2 degrees Fahrenheit, blood pressure 170/90, pulse 96, respiratory rate 18, saturating 96% on nasal canula. INTAKE AND OUTPUT (I AND O): Urine output recorded is 200 mL. HEAD AND NECK EXAMINATION: Extraocular muscles intact. Pupils equally round and reactive to light. Mucous membranes are moist. Neck is supple. There is positive elevation of jugular venous distention (JVD). CARDIOVASCULAR: S1, S2. Regular rate. No murmurs, rubs or gallops. RESPIRATORY: Patient has decreased breath sounds at the bases and bilateral expiratory rhonchi. ABDOMEN: Soft. Positive bowel sounds. Kidneys and liver are palpable because of history of polycystic kidneys and polycystic liver disease. EXTREMITIES: No clubbing or cyanosis. She has trace edema on the bilateral lower extremities. CENTRAL NERVOUS SYSTEM: No focal neurological deficits. Power is 5/5 in all extremities. SKIN: No rashes or ulcers PSYCHIATRIC: Normal mood and affect. LABORATORY REVIEW: CBC showed WBC 7.6, hemoglobin 11.5, platelets 128. Arterial blood gas (ABG) showed pH 7.37, pCO2 41.6, pO2 73.9, bicarbonate 23.7, oxygen saturation 94.9. BMP showed sodium 143, potassium 4.5, chloride 107, bicarbonate 28, BUN 26, creatinine 4.95, calcium 8.3. Troponin 0.02. Brain natriuretic peptide (BNP) 727. MICROBIOLOGY: Influenza is negative. Blood cultures are pending. IMAGING: A chest x-ray done this morning showed no acute cardiopulmonary process, CURRENT INPATIENT MEDICATIONS: Patient has been started on: - azithromycin - Rocephin - DuoNeb nebulizations as needed. - atenolol 25 mg by mouth daily - Bumex 2 mg IV, one dose. - heparin subcutaneously. - levothyroxine 137 mcg daily - Ativan 1 mg by mouth every 12 hours - losartan has been started at 50 mg by mouth daily - Solu-Medrol 60 mg every 12 hours - Nicotine patch ASSESSMENT: A 66-year-old female with past medical history of end-stage renal disease on hemodialysis secondary to autosomal dominant polycystic kidney disease, history of chronic obstructive pulmonary disease (COPD) and hypertension, admitted this time with progressive shortness of breath and possible chronic obstructive pulmonary disease (COPD) exacerbation. PLAN: 1. Progressive shortness of breath. Patient has already been started on steroids and nebulizations for possible chronic obstructive pulmonary disease (COPD) exacerbation. Patient has significant rhonchi on physical examination. She is already on antibiotics. I thing there might be a component of congestive heart failure as well, because the patient significantly elevated jugular venous distention (JVD) and her hypertensive medications were on hold. She is hypertensive at this time, so I am going to give her a dose of Bumex 2 mg IV and will do hemodialysis at this time as well. I will try to run ultrafiltration of about 3 Kg as tolerated by her blood pressure. 2. Accelerated hypertension. Patient's blood pressure is not controlled at this time. That might be contributing to congestive heart failure. I have restarted losartan 50 mg daily and atenolol 25 mg by mouth daily. She made some urine, that is why she was given a dose of Bumex, as well. Hemodialysis and ultrafiltration would also help improve the blood pressure. 3. End-stage renal disease on hemodialysis. Today is patient's day of dialysis. We shall try to dialyze her today, according to her regular schedule. 4. Hypothyroidism. Restart home dose of levothyroxine 137 mcg by mouth daily. 5. History of anxiety and depression. Continue Lexapro and continue Ativan as well. 6. History of tobacco abuse. Patient was advised to quit smoking. She currently has a nicotine patch in the hospital. Thank you for involving us in the care of this patient. We shall be happy to follow the patient along with you tomorrow morning. BRANDT
[2016-11-24] MEDS ORDERED: LIDOCAINE 1% SDV 5 ML VIAL SC ONE (14:30)
[2016-11-24 16:00] VITALS: BP 140/94
[2016-11-24] MEDS: methylPREDNISolone INJ 125 MG/2 ML VIAL (J2930) IV SCH (17:39)
--- NOTE | 2016-11-24 19:51 | ECGEPIP ---
Stationary ECG Study [facility] - ED Test Date: 2016-11-24 Pat Name: CHIQUITA FELIPE Department: Room: [place] [address] Gender: F [employer] Advisor: HusainB: 1950 Requested By: Julio Lucero Order Number: [id number] Reading MD: Jennifer Mendoza Measurements Intervals [place] Rate: 85 P: [place]: 0 QRS: -45 QRSD: 77 T: 75 QT: 365 QTc: 435 Interpretive Statements SINUS RHYTHM LEFT ANTERIOR FASCICULAR BLOCK DELAYED R PROGRESSION NSTTW ABNORMALITY INCREASED RATE 11/11/16 Electronically Signed On 11-24-2016 19:51:32 EST by Jennifer Mendoza
[2016-11-24 22:00] VITALS: BP 160/96
[2016-11-25] MEDS: methylPREDNISolone INJ 125 MG/2 ML VIAL (J2930) IV SCH ×2 (03:24→16:36)
[2016-11-25] MEDS: HEPARIN SOD (PORCINE) 5000 UNITS/ML VIAL SC SCH ×3 (05:47→22:14)
[2016-11-25] MEDS: LEVOTHYROXINE 0.137 MG TAB (137MCG) PO SCH (05:47)
[2016-11-25 06:00] VITALS: BP 160/92
[2016-11-25 07:14] LABS: MEAN CORPUSCULAR HEMOGLOBIN 29.1 pg (27.0-33.0); MEAN CORPUSCULAR HGB CONC 31.4 g/dl (32.0-36.5); MEAN CORPUSCULAR VOLUME 92.9 fl (80.0-96.0); RED CELL DISTRIBUTION WIDTH 16.9 % (11.5-14.5); WHITE BLOOD COUNT 5.9 K/mm3 (4.0-10.0)
[2016-11-25 07:22] LABS: CALCIUM LEVEL 8.8 MG/DL (8.8-10.2); CREATININE FOR GFR 4.03 MG/DL (0.55-1.02); GLOMERULAR FILTRATION RATE 11.8 (>45); POTASSIUM SERUM 3.8 MEQ/L (3.5-5.1)
[2016-11-25] MEDS: NICOTINE 14 MG/24 HR TRANSDERMAL TD SCH (10:02)
[2016-11-25] MEDS: ATENOLOL 25 MG TAB PO SCH (10:02)
[2016-11-25] MEDS: LOSARTAN 50 MG TAB PO SCH (10:02)
[2016-11-25] MEDS: cefTRIAXone SOD 2 GM in D5W MINI-BAG PLUS 50 ML IV SCH (10:03)
[2016-11-25] MEDS: LORazepam 1 MG TAB PO PRN ×2 (10:09→22:13)
[2016-11-25] MEDS: AZITHROMYCIN 500 MG, VIAL MATE ADAPTER 1 EACH in D5W 250 ML IV SCH (11:28)
[2016-11-25 14:00] VITALS: BP 156/85
--- NOTE | 2016-11-25 14:19 | IPNPDOC ---
Assessment/Plan Date Seen The patient was seen on 11/25/16. Problems Problems: (1) ESRD (end stage renal disease) Status: Chronic (2) Hypothyroid Status: Chronic (3) HTN (hypertension) Status: Chronic (4) Anxiety Status: Acute Subjective Review of Systems CC/HPI The patient is a 66-year-old female admitted with a reason for visit of Copd, Esrd. Constitutional: Denies: Chills, Fever, Malaise, Night Sweats, Weakness Gastrointestinal: Denies: Abdominal Pain, Constipation, Diarrhea, Hematochezia , Melena, Nausea, Other Symptoms, Vomiting Objective Physical Examination General Exam: Positive: Alert, No Acute Distress Chest Exam: Positive: Clear to auscultation, Diminished, Normal air movement Heart Exam: Positive: Normal S1, Normal S2, Rate Normal, Regular Rhythm, Negative: Murmurs, Rubs Abdomen Exam: Positive: Normal bowel sounds, Soft, Negative: Hepatospenomegaly, Tenderness Extremity Exam: Positive: Edema, Normal pulses, Negative: Clubbing, Cyanosis Vital Signs/I&O Vital Signs Date Time Temp Pulse Resp B/P Pulse Ox O2 Delivery O2 Flow Rate FiO2 11/25/16 10:02 55 160/92 11/25/16 10:00 Room Air 11/25/16 06:00 98.9 18 92 11/24/16 21:00 1.0 I&O- Last 24 Hours up to 6 AM 11/25/16 06:00 Intake Total 600 ml Output Total 3500 ml Balance -2900 ml Laboratory Data Labs 24H Laboratory Tests 2 11/25/16 06:21: Anion Gap 10, Blood Urea Nitrogen 25H, Creatinine 4.03H, Sodium Level 138, Potassium Level 3.8, Chloride Level 99, Carbon Dioxide Level 29, Calcium Level 8.8, Glomerular Filtration Rate 11.8L CBC/BMP Laboratory Tests 11/25/16 06:20 Red Blood Count 3.82 L, Mean Corpuscular Volume 92.9, Mean Corpuscular Hemoglobin 29.1, Mean Corpuscular Hemoglobin Concent 31.4 L, Red Cell Distribution Width 16.9 H 11/25/16 06:21 Calcium Level 8.8 Microbiology Microbiology 11/24/16 Blood Culture - Preliminary, Resulted No growth after 24 hours . All specim... 11/24/16 Blood Culture - Preliminary, Resulted No growth after 24 hours . All specim... 11/24/16 Influenza Virus Type A Antigen - Final, Complete 11/24/16 Influenza Virus Type B Antigen - Final, Complete YESI LERMA DO Nov 25, 2016 14:19
--- NOTE | 2016-11-25 15:21 | ECHO ---
DATE OF PROCEDURE: 11/25/2016 REFERRING PHYSICIAN: Dr. Astudillo INDICATION: Dyspnea. The study was performed on an inpatient basis on November 25, 2016. The patient measures 157 cm and weighs 45 kg DIMENSIONS: IVS - 1.0 LV - 3.9 LVPW - 1.0 LA - 2.6 Aorta 3.3 IVC 1.5 FINDINGS: The study is of good technical quality. Left ventricle is normal size and hyperdynamic contractility with estimated LVEF approximately 70%. No segmental wall motion abnormalities are appreciated. Right ventricle is normal size and systolic function. Both atria appear grossly normal. Aortic valve is tricuspid. It is mildly sclerotic but has preserved mobility. Mitral, tricuspid and pulmonic valves appear normal. No pericardial effusion is noted. Left pleural effusion is seen. Inferior vena cava is normal size. Aortic root appears normal. Aortic arch and abdominal aorta were not visualized. Doppler interrogation reveals no aortic stenosis and mild insufficiency. There is mild mitral insufficiency and mild tricuspid insufficiency. Calculated pulmonary artery pressure is at minimum around 40 mmHg (and probably higher) corresponding to moderate pulmonary hypertension. Pulmonic valve also exhibits mild insufficiency. Mitral inflow pattern and tissue Doppler imaging of mitral annulus reveal grade 1 diastolic dysfunction. CONCLUSION: 1. Study is of good technical quality. 2. Normal LV size and systolic function, grade 1 diastolic dysfunction. 3. No hemodynamically significant valvular disease. 4. Normal central venous pressure. 5. At least moderate pulmonary hypertension. 6. Left pleural effusion. COMMENT: SBE prophylaxis is not recommended. MTDD
--- NOTE | 2016-11-25 19:19 | IPN ---
DATE: 11/25/2016 SUBJECTIVE: The patient was seen and examined at the bedside today in the morning. She reports that her shortness of breath is significantly better. Her blood pressure is also better controlled today. She got hemodialysis done yesterday. She tolerated the hemodialysis procedure well. She also got the echocardiogram done today in the morning. REVIEW OF SYSTEMS: The patient denies any fever, chills, rigors, headache, nausea, vomiting, chest pain, shortness of breath, pain in abdomen, constipation or diarrhea. All other review of systems is negative. OBJECTIVE: VITAL SIGNS: Temperature is 98.8 degrees Fahrenheit. Blood pressure is 156/85, pulse is 67, respiratory rate of 18, saturating 94% on room air. INTAKE/OUTPUT: Urine output recorded is around 400 mL. Ultrafiltration done with hemodialysis was 3 liters yesterday. PHYSICAL EXAMINATION: GENERAL: The patient is awake, alert, oriented times three, laying in bed, in no apparent distress. HEAD AND NECK EXAM: Extraocular muscles intact. Pupils equally round and reactive to light. Mucous membranes are moist. Neck is supple. There is no jugular venous distention (JVD). CARDIOVASCULAR: S1, S2, regular rate. No murmur, rub or gallop. RESPIRATORY: Chest is clear to auscultation bilaterally. Bilateral equal air entry. No rales or rhonchi. ABDOMEN: Abdomen is soft. Positive bowel sounds. Both kidneys and liver are palpable because of polycystic liver and kidney disease. EXTREMITIES: No clubbing or cyanosis, and there is no edema of the bilateral lower extremities. CENTRAL NERVOUS SYSTEM: No focal neurological deficit. Power is 5/5 in all extremities. PSYCHIATRIC: Normal mood and affect. LAB REVIEW: CBC showed a hemoglobin of 11.1. BMP showed sodium 138, potassium 3.8, chloride 99, bicarbonate 29, BUN 25, creatinine is 4.03, calcium is 8.8. Microbiology: Cultures are negative. CURRENT MEDICATIONS: Patient's current medications were all reviewed by me. There is no change in the medication as compared with yesterday. ASSESSMENT: A 66-year-old female with a past medical history of end-stage renal disease on hemodialysis secondary to autosomal dominant polycystic kidney disease, history of chronic obstructive pulmonary disease (COPD) and hypertension, admitted this time with progressive shortness of breath and COPD exacerbation. PLAN: 1. COPD exacerbation. The patient's symptoms are significantly better. Her shortness of breath is improved. She continues to be on IV Solu-Medrol. The rest of the management is as per primary team. 2. Hypertension and grade 1 diastolic dysfunction. The patient's echocardiogram report was reviewed. I appreciate the cardiology input. Her left ventricular ejection fraction is around 70%. She has diastolic dysfunction. She was already started on atenolol and losartan. Blood pressure is acceptable at this time. If her blood pressure stays above 150, then her losartan dose will be increased as an outpatient. Continue the current dose at this time. 3. End-stage renal disease, on hemodialysis. The patient was dialyzed yesterday, 3 liters of ultrafiltration was done. No urgent need to do hemodialysis today. Next hemodialysis session will be tomorrow. 4. Tobacco abuse. The patient is requesting nicotine patches. I have already prescribed the nicotine patches and sent the prescription to our pharmacy. She will get a nicotine patch 21 mg patch initially for 6 weeks, then 14 mg patch for 2 weeks and 7 mg patch for the last 2 weeks. The patient is trying to quit smoking at this time, and she was encouraged to use the patches. DISCHARGE PLANNING: If patient's blood pressure remains stable by tomorrow morning, she can be discharged tomorrow morning and she can be dialyzed as an outpatient after discharge. Plan of care was discussed with the hospitalist team, Dr. Tomy Barlow.
[2016-11-25 22:00] VITALS: BP 160/100
[2016-11-26] MEDS: methylPREDNISolone INJ 125 MG/2 ML VIAL (J2930) IV SCH (04:09)
[2016-11-26] MEDS: HEPARIN SOD (PORCINE) 5000 UNITS/ML VIAL SC SCH (05:15)
[2016-11-26 06:00] VITALS: BP 178/106
[2016-11-26] MEDS: LEVOTHYROXINE 0.137 MG TAB (137MCG) PO SCH (06:00)
[2016-11-26 06:01] VITALS: BP 178/106
[2016-11-26] MEDS: LOSARTAN 50 MG TAB PO SCH (06:01)
[2016-11-26] MEDS: ATENOLOL 25 MG TAB PO SCH (06:01)
[2016-11-26] MEDS: NICOTINE 14 MG/24 HR TRANSDERMAL TD SCH (06:02)
[2016-11-26 06:39] LABS: MEAN CORPUSCULAR HEMOGLOBIN 29.7 pg (27.0-33.0); MEAN CORPUSCULAR HGB CONC 32.1 g/dl (32.0-36.5); MEAN CORPUSCULAR VOLUME 92.6 fl (80.0-96.0); RED CELL DISTRIBUTION WIDTH 17.1 % (11.5-14.5); WHITE BLOOD COUNT 7.8 K/mm3 (4.0-10.0)
[2016-11-26 06:56] LABS: CALCIUM LEVEL 8.6 MG/DL (8.8-10.2); CREATININE FOR GFR 5.15 MG/DL (0.55-1.02); GLOMERULAR FILTRATION RATE 8.9 (>45); POTASSIUM SERUM 3.6 MEQ/L (3.5-5.1)
[2016-11-26 07:31] VITALS: BP 179/95
[2016-11-26] MEDS ORDERED: MEDR4PAK PO (08:34)
--- NOTE | 2016-11-26 09:40 | EDDOCDS ---
Physician Documentation [facility] Name: Karina Blackmon Age: 66 yrs Sex: Female : 1950 Arrival Date: 11/24/2016 Time: 03:21 Bed 1 Private MD: Asa Mena Disposition: 11/24 05:51 Critical Care:. pc Disposition: 11/24/16 05:53 Hospitalization ordered by Tiffanie Monroe for Inpatient Admission. Preliminary diagnosis are Hypoxemia, Chronic obstructive pulmonary disease with (acute) exacerbation, End stage renal disease. - Bed requested for 4 [place]. - Status is Inpatient Admission. kr3 - Condition is Stable. - Problem is an acute exacerbation. - Symptoms have improved. HPI: 03:26 This 66 yrs old Female presents to ER with complaints of Shortness Of Breath. pc 03:26 The history is obtained from the patient, EMS providers. A reliable history and/or pc examination was not able to be obtained, due to patient distress. The patient presents with shortness of breath, with a prior history of COPD. The symptoms began gradually 2 days ago, and became worse just prior to arrival. The symptoms are continuous, and are steadily getting worse. There were no precipitating events that led to the current complaints. The patient has shortness of breath at rest. At their worst, the symptoms were severe. In the emergency department, the symptoms are moderate. The patient's dyspnea was accompanied with heart racing, anxiety. The patient has experienced similar episodes in the past, chronically. The patient has been recently been admitted at [facility], was discharged last week, due to lower GI bleeding and anemia, requiring transfusion of PRBC x 2. Historical: - Allergies: Codeine Sulfate (Upset stomach); Lisinopril (angioedema to tongue); - Home Meds: 1. Activella 1-0.5 mg oral tab 1 tab once daily (Last dose: 11/23/2016 07:00) 2. aspirin 81 mg Oral TbEC 1 tab once daily (Last dose: 11/23/2016 07:00) 3. Atrovent 18 mcg/actuation Inhl aero 2 puff four times a day (Last dose: 11/23/2016 19:00) 4. albuterol sulfate 90 mcg/actuation Inhl aepb 2 puffs every 4-6 hours (Last dose: 11/23/2016 19:00) 5. Ativan 1 mg Oral tab 1 tab once daily (Last dose: 11/23/2016 19:00) 6. levothyroxine 100 mcg Oral tab once daily (Last dose: 11/23/2016 06:00) 7. Lexapro 10 mg Oral tab 1 tab once daily (Last dose: 11/23/2016 19:00) 8. minoxidil 2.5 mg Oral tab once daily 9. prednisone 2.5 mg oral tab 1 tab once daily (Last dose: 11/23/2016 07:00) 10. Arielle-Roby Rx 1-60-300 mg-mg-mcg oral tab daily (Last dose: 11/23/2016 07:00) 11. Tenormin 50 mg oral tab 1 tab once daily - PMHx: COPD; Hypertension; Hypothyroidism; Polycystic Kidney Disease; Renal Failure with Dialysis; - PSHx: Hip Arthroplasty, Right; - The history from nurses notes was reviewed: but there are no nursing notes, or only partial notes available at the time of my charting. - Social history: Smoking status: Patient uses tobacco products, current every day smoker. No barriers to communication noted, The patient speaks fluent Kinyarwanda, Speaks appropriately for age. - : The pt / caregiver states he / she is not on anticoagulants. Home medication list is obtained from the patient. - Immunization history:: All immunizations up-to-date. - Exposure Risk Screening:: None identified. - Family history: Not pertinent. - Social history:: the patient is a former smoker, the patient does not drink alcohol. ROS: 03:26 All systems are negative except as listed. The gastrointestinal and genitourinary pc components are also addressed in the HPI. Exam: 03:26 General Appearance: alert, the patient is in moderate distress. pc 03:26 EENT: normal eye inspection, ears, nose and throat normal, pharynx normal, mucous membranes moist 03:26 Neck: normal inspection. 03:26 Respiratory: the patient is in moderate respiratory distress, with retractions noted, auscultation reveals wheezes, diffusely, decreased air entry noted throughout speaks in 3 word sentences. 03:26 Cardiovascular: normal rhythm, no jugular venous distension appreciated, no murmurs, no gallop, no friction rub, the heart rate is tachycardic, at 110 bpm. 03:26 Abdomen: non-tender, non-distended, no organomegaly. 03:26 Skin: normal color, warm, dry. 03:26 Extremities: non-tender, normal range of motion of all joints, no pedal edema. 03:26 Neuro: alert, oriented to person, place and time, cranial nerves normal as tested, no motor deficits, no sensory deficits. Vital Signs: 03:26 BP 209 / 121; Pulse 110; Resp 18 S; Temp 98.8(TE); Pulse Ox 97% on R/A; Weight 46.27 kg jp4 / 102.01 lbs (R); Height 5 ft. 2 in. (157.48 cm) (R); Pain 0/10; 04:00 BP 188 / 110 (auto/); neel 04:00 Pulse 88 MON; Resp 24 S; Pulse Ox 100% on 1 lpm NC; neel 04:15 BP 171 / 103 (auto/); neel 04:15 Pulse 81 MON; Resp 22 S; Pulse Ox 97% on 1 lpm NC; neel 04:30 BP 169 / 104 (auto/); neel 04:30 Pulse 85 MON; Resp 18 S; Pulse Ox 97% on 1 lpm NC; neel 04:45 BP 179 / 99 (auto/); neel 04:45 Pulse 81 MON; Resp 22 S; Pulse Ox 99% on 1 lpm NC; neel 05:00 BP 170 / 99 (auto/); neel 05:00 Pulse 82 MON; Resp 20 S; Pulse Ox 96% on 1 lpm NC; neel 05:15 BP 178 / 102 (auto/); neel 05:15 Pulse 87 MON; Resp 24 S; Pulse Ox 94% on 1 lpm NC; neel 05:30 BP 179 / 104 (auto/); neel 05:30 Pulse 97 MON; Resp 22 S; Pulse Ox 98% on 1 lpm NC; neel 05:45 BP 180 / 103 (auto/); neel 05:45 Pulse 89 MON; Resp 22 S; Pulse Ox 94% on 1 lpm NC; neel 06:00 BP 167 / 101 (auto/); neel 06:00 Pulse 97 MON; Resp 20 S; Pulse Ox 96% on 1 lpm NC; neel 06:15 BP 180 / 102 (auto/); neel 06:16 Pulse 91 MON; Resp 20 S; Pulse Ox 96% on 1 lpm NC; neel 06:30 BP 180 / 102 (auto/); neel 06:30 Pulse 85 MON; Resp 18 S; Pulse Ox 95% on 1 lpm NC; neel 06:45 BP 179 / 100 (auto/); neel 06:45 Pulse 83 MON; Resp 20 S; Pulse Ox 97% on 1 lpm NC; neel 07:26 BP 173 / 92; Pulse 80; Resp 16; Temp 98.9(O); Pulse Ox 96% on 1 lpm NC; Pain 0/10; kr3 07:45 BP 177 / 106 (auto/); kr3 07:45 Pulse 93 MON; kr3 08:00 BP 174 / 105 (auto/); kr3 08:00 Pulse 81 MON; kr3 08:15 BP 177 / 103 (auto/); kr3 08:15 Pulse 81 MON; kr3 03:26 Body Mass Index 18.66 (46.27 kg, 157.48 cm) jp4 MDM: 03:25 Solu-MEDROL 125 mg IVP once ordered. pc 03:25 -Blood Culture (Adults Only), peripheral from different site, or from device/port/PICC pc etc. if present ordered. 03:25 Wrapper Rewinder/Pulse Ox/q 15 min VS ordered. pc 03:25 IV Saline Lock ordered. pc 03:25 Rhythm Strip to chart ordered. pc 03:25 Oxygen (enter rate/delivery method/parameters) ordered. pc 03:25 Albuterol-Ipratropium 1 neb Nebulizer every 20 minutes x3 ordered. pc 03:26 -Blood Culture (Adults Only), peripheral from different site, or from device/port/PICC ml3 etc. if present complete. 03:26 -Arterial Blood Gas Ordered. EDMS 03:26 B-Type Natiuretic Peptide Ordered. EDMS 03:26 Basic Metabolic Profile Ordered. EDMS 03:26 CBC with Diff Ordered. EDMS 03:26 Cardiac Injury Profile Ordered. EDMS 03:26 Troponin Ordered. EDMS 03:26 -Blood Culture Ordered. EDMS 03:26 Chest, 1 View Ordered. EDMS 03:26 ECG WITH READING ER PHYS+CARDIAG ordered. EDMS 03:26 Differential diagnosis: Chronic Obstructive Pulmonary Disease pneumonia. Plan: labs, pc meds, nebs, imaging, EKG. 03:27 BLOOD CULTURES Ordered. EDMS 03:32 Test interpretation: EKG. pc 04:07 -Arterial Blood Gas Reviewed. pc 04:07 CBC with Diff Reviewed. pc 05:00 B-Type Natiuretic Peptide Reviewed. pc 05:00 Basic Metabolic Profile Reviewed. pc 05:00 Cardiac Injury Profile Reviewed. pc 05:00 Troponin Reviewed. pc 05:00 Albuterol-Ipratropium 1 neb Nebulizer every 20 minutes x3 ordered. pc 05:00 Call Respiratory ordered. pc 05:06 Call Respiratory complete. neel 05:51 BED REQUEST+ADM ordered. EDMS 05:51 Antibiotic administration: Not indicated, the patient does not have an appreciated pc infiltrate. Data reviewed: old medical records, vital signs, nurses notes, EKG(s), lab test results, all radiology studies and available results. Test interpretation: LAB - all labs as ordered have been reviewed, interpreted and considered in the overall management of the clinical presentation; Arterial blood gas is normal. X-RAY - interpreted by de, 1 view chest chronic obstructive pulmonary disease pattern. The patient has been re-examined and re-evaluated. The patient's symptoms have mildly improved after treatment. Physician consultation: Dr. Chris Garces MD regarding consult. 05:51 Physician consultation: Dr. Tiffanie Monroe was contacted at 05:52, regarding admission, and pc will see patient in ED, shortly. Disposition: The historical points, examination findings, and any diagnostic results supporting the provided diagnosis, were discussed with the patient or legal guardian. The need for further work-up and/or treatment in the hospital was explained. 06:09 Admission / Observation Status ordered. EDMS 06:10 2 GRAM SODIUM DIET ordered. EDMS 06:24 [facility] Payment Agreement was scanned into [employer] and attached to record. jp5 06:24 Financial registration complete. jp5 06:31 INFLUENZA A&B RAPID ANTIGEN Ordered. EDMS 15:00 ECG/EKG was scanned into [employer] and attached to record. EC:32 Rate is 85 beats/min. Rhythm is regular, Normal Sinus Rhythm with PACs. QRS [place] is pc Normal. NM interval is normal. QRS interval is normal. QT interval is normal. No Q waves. T waves are Normal. No ST changes noted. Clinical impression: Normal Sinus Rhythm. Administered Medications: 03:28 Drug: Albuterol-Ipratropium 1 neb [ipratropium-albuterol 0.5 mg-3 mg(2.5 mg base)/3 mL jh6 nebulization soln (1 neb)] Route: Nebulizer; 03:45 Drug: Solu-MEDROL 125 mg [Solu-Medrol 500 mg intravenous solution (125 mg)] Route: IVP; lf1 Site: right wrist; 03:52 Drug: Albuterol-Ipratropium 1 neb [ipratropium-albuterol 0.5 mg-3 mg(2.5 mg base)/3 mL jh6 nebulization soln (1 neb)] Route: Nebulizer; 04:30 Drug: Albuterol-Ipratropium 1 neb [ipratropium-albuterol 0.5 mg-3 mg(2.5 mg base)/3 mL jh6 nebulization soln (1 neb)] Route: Nebulizer; 05:18 Drug: Albuterol-Ipratropium 1 neb [ipratropium-albuterol 0.5 mg-3 mg(2.5 mg base)/3 mL jh6 nebulization soln (1 neb)] Route: Nebulizer; Critical Care Time: 05:51 Critical care time: Bedside Care: 35 minutes, Consultation: 20 minutes. Total time: 55 pc minutes Signatures: Dispatcher [employer] Juilo Bhatt MD MD pc Sovie, Carolyn,RN RN neel Samara Pettit, Gary Reg Sayda, Vasile, Tree [employer] Unit ml3 Trish Newby,ERROL RN sarwat3 Adolph Lozoya 5 Tu Monge RN RN [facility] Juana Hawk RN [facility] Toni Couch 6 The chart was reviewed and I authenticate all verbal orders and agree with the evaluation and treatment provided.Attachments: 06:24 [facility] Payment Agreement jp5 15:00 ECG/EKG gb Chart Complete MTDD
--- NOTE | 2016-11-26 09:40 | EDDOCDS ---
Physician Documentation [facility] Name: Karina Blackmon Age: 66 yrs Sex: Female : 1950 Arrival Date: 11/24/2016 Time: 03:21 Bed 1 Private MD: Asa Mena Disposition: 11/24 05:51 Critical Care:. pc Disposition: 11/24/16 05:53 Hospitalization ordered by Tiffanie Monore for Inpatient Admission. Preliminary diagnosis are Hypoxemia, Chronic obstructive pulmonary disease with (acute) exacerbation, End stage renal disease. - Bed requested for 4 [place]. - Status is Inpatient Admission. kr3 - Condition is Stable. - Problem is an acute exacerbation. - Symptoms have improved. HPI: 03:26 This 66 yrs old Female presents to ER with complaints of Shortness Of Breath. pc 03:26 The history is obtained from the patient, EMS providers. A reliable history and/or pc examination was not able to be obtained, due to patient distress. The patient presents with shortness of breath, with a prior history of COPD. The symptoms began gradually 2 days ago, and became worse just prior to arrival. The symptoms are continuous, and are steadily getting worse. There were no precipitating events that led to the current complaints. The patient has shortness of breath at rest. At their worst, the symptoms were severe. In the emergency department, the symptoms are moderate. The patient's dyspnea was accompanied with heart racing, anxiety. The patient has experienced similar episodes in the past, chronically. The patient has been recently been admitted at [facility], was discharged last week, due to lower GI bleeding and anemia, requiring transfusion of PRBC x 2. Historical: - Allergies: Codeine Sulfate (Upset stomach); Lisinopril (angioedema to tongue); - Home Meds: 1. Activella 1-0.5 mg oral tab 1 tab once daily (Last dose: 11/23/2016 07:00) 2. aspirin 81 mg Oral TbEC 1 tab once daily (Last dose: 11/23/2016 07:00) 3. Atrovent 18 mcg/actuation Inhl aero 2 puff four times a day (Last dose: 11/23/2016 19:00) 4. albuterol sulfate 90 mcg/actuation Inhl aepb 2 puffs every 4-6 hours (Last dose: 11/23/2016 19:00) 5. Ativan 1 mg Oral tab 1 tab once daily (Last dose: 11/23/2016 19:00) 6. levothyroxine 100 mcg Oral tab once daily (Last dose: 11/23/2016 06:00) 7. Lexapro 10 mg Oral tab 1 tab once daily (Last dose: 11/23/2016 19:00) 8. minoxidil 2.5 mg Oral tab once daily 9. prednisone 2.5 mg oral tab 1 tab once daily (Last dose: 11/23/2016 07:00) 10. Arielle-Roby Rx 1-60-300 mg-mg-mcg oral tab daily (Last dose: 11/23/2016 07:00) 11. Tenormin 50 mg oral tab 1 tab once daily - PMHx: COPD; Hypertension; Hypothyroidism; Polycystic Kidney Disease; Renal Failure with Dialysis; - PSHx: Hip Arthroplasty, Right; - The history from nurses notes was reviewed: but there are no nursing notes, or only partial notes available at the time of my charting. - Social history: Smoking status: Patient uses tobacco products, current every day smoker. No barriers to communication noted, The patient speaks fluent [place]inyarw[place], Speaks appropriately for age. - : The pt / caregiver states he / she is not on anticoagulants. Home medication list is obtained from the patient. - Immunization history:: All immunizations up-to-date. - Exposure Risk Screening:: None identified. - Family history: Not pertinent. - Social history:: the patient is a former smoker, the patient does not drink alcohol. ROS: 03:26 All systems are negative except as listed. The gastrointestinal and genitourinary pc components are also addressed in the HPI. Exam: 03:26 General Appearance: alert, the patient is in moderate distress. pc 03:26 EENT: normal eye inspection, ears, nose and throat normal, pharynx normal, mucous membranes moist 03:26 Neck: normal inspection. 03:26 Respiratory: the patient is in moderate respiratory distress, with retractions noted, auscultation reveals wheezes, diffusely, decreased air entry noted throughout speaks in 3 word sentences. 03:26 Cardiovascular: normal rhythm, no jugular venous distension appreciated, no murmurs, no gallop, no friction rub, the heart rate is tachycardic, at 110 bpm. 03:26 Abdomen: non-tender, non-distended, no organomegaly. 03:26 Skin: normal color, warm, dry. 03:26 Extremities: non-tender, normal range of motion of all joints, no pedal edema. 03:26 Neuro: alert, oriented to person, place and time, cranial nerves normal as tested, no motor deficits, no sensory deficits. Vital Signs: 03:26 BP 209 / 121; Pulse 110; Resp 18 S; Temp 98.8(TE); Pulse Ox 97% on R/A; Weight 46.27 kg jp4 / 102.01 lbs (R); Height 5 ft. 2 in. (157.48 cm) (R); Pain 0/10; 04:00 BP 188 / 110 (auto/); neel 04:00 Pulse 88 MON; Resp 24 S; Pulse Ox 100% on 1 lpm NC; neel 04:15 BP 171 / 103 (auto/); neel 04:15 Pulse 81 MON; Resp 22 S; Pulse Ox 97% on 1 lpm NC; neel 04:30 BP 169 / 104 (auto/); neel 04:30 Pulse 85 MON; Resp 18 S; Pulse Ox 97% on 1 lpm NC; neel 04:45 BP 179 / 99 (auto/); neel 04:45 Pulse 81 MON; Resp 22 S; Pulse Ox 99% on 1 lpm NC; neel 05:00 BP 170 / 99 (auto/); neel 05:00 Pulse 82 MON; Resp 20 S; Pulse Ox 96% on 1 lpm NC; neel 05:15 BP 178 / 102 (auto/); neel 05:15 Pulse 87 MON; Resp 24 S; Pulse Ox 94% on 1 lpm NC; neel 05:30 BP 179 / 104 (auto/); neel 05:30 Pulse 97 MON; Resp 22 S; Pulse Ox 98% on 1 lpm NC; neel 05:45 BP 180 / 103 (auto/); neel 05:45 Pulse 89 MON; Resp 22 S; Pulse Ox 94% on 1 lpm NC; neel 06:00 BP 167 / 101 (auto/); neel 06:00 Pulse 97 MON; Resp 20 S; Pulse Ox 96% on 1 lpm NC; neel 06:15 BP 180 / 102 (auto/); neel 06:16 Pulse 91 MON; Resp 20 S; Pulse Ox 96% on 1 lpm NC; neel 06:30 BP 180 / 102 (auto/); neel 06:30 Pulse 85 MON; Resp 18 S; Pulse Ox 95% on 1 lpm NC; neel 06:45 BP 179 / 100 (auto/); neel 06:45 Pulse 83 MON; Resp 20 S; Pulse Ox 97% on 1 lpm NC; neel 07:26 BP 173 / 92; Pulse 80; Resp 16; Temp 98.9(O); Pulse Ox 96% on 1 lpm NC; Pain 0/10; kr3 07:45 BP 177 / 106 (auto/); kr3 07:45 Pulse 93 MON; kr3 08:00 BP 174 / 105 (auto/); kr3 08:00 Pulse 81 MON; kr3 08:15 BP 177 / 103 (auto/); kr3 08:15 Pulse 81 MON; kr3 03:26 Body Mass Index 18.66 (46.27 kg, 157.48 cm) jp4 MDM: 03:25 Solu-MEDROL 125 mg IVP once ordered. pc 03:25 -Blood Culture (Adults Only), peripheral from different site, or from device/port/PICC pc etc. if present ordered. 03:25 Packing Supervisor/Pulse Ox/q 15 min VS ordered. pc 03:25 IV Saline Lock ordered. pc 03:25 Rhythm Strip to chart ordered. pc 03:25 Oxygen (enter rate/delivery method/parameters) ordered. pc 03:25 Albuterol-Ipratropium 1 neb Nebulizer every 20 minutes x3 ordered. pc 03:26 -Blood Culture (Adults Only), peripheral from different site, or from device/port/PICC ml3 etc. if present complete. 03:26 -Arterial Blood Gas Ordered. EDMS 03:26 B-Type Natiuretic Peptide Ordered. EDMS 03:26 Basic Metabolic Profile Ordered. EDMS 03:26 CBC with Diff Ordered. EDMS 03:26 Cardiac Injury Profile Ordered. EDMS 03:26 Troponin Ordered. EDMS 03:26 -Blood Culture Ordered. EDMS 03:26 Chest, 1 View Ordered. EDMS 03:26 ECG WITH READING ER PHYS+CARDIAG ordered. EDMS 03:26 Differential diagnosis: Chronic Obstructive Pulmonary Disease pneumonia. Plan: labs, pc meds, nebs, imaging, EKG. 03:27 BLOOD CULTURES Ordered. EDMS 03:32 Test interpretation: EKG. pc 04:07 -Arterial Blood Gas Reviewed. pc 04:07 CBC with Diff Reviewed. pc 05:00 B-Type Natiuretic Peptide Reviewed. pc 05:00 Basic Metabolic Profile Reviewed. pc 05:00 Cardiac Injury Profile Reviewed. pc 05:00 Troponin Reviewed. pc 05:00 Albuterol-Ipratropium 1 neb Nebulizer every 20 minutes x3 ordered. pc 05:00 Call Respiratory ordered. pc 05:06 Call Respiratory complete. neel 05:51 BED REQUEST+ADM ordered. EDMS 05:51 Antibiotic administration: Not indicated, the patient does not have an appreciated pc infiltrate. Data reviewed: old medical records, vital signs, nurses notes, EKG(s), lab test results, all radiology studies and available results. Test interpretation: LAB - all labs as ordered have been reviewed, interpreted and considered in the overall management of the clinical presentation; Arterial blood gas is normal. X-RAY - interpreted by tn, 1 view chest chronic obstructive pulmonary disease pattern. The patient has been re-examined and re-evaluated. The patient's symptoms have mildly improved after treatment. Physician consultation: Dr. Chris Garces MD regarding consult. 05:51 Physician consultation: Dr. Tiffanie Monroe was contacted at 05:52, regarding admission, and pc will see patient in ED, shortly. Disposition: The historical points, examination findings, and any diagnostic results supporting the provided diagnosis, were discussed with the patient or legal guardian. The need for further work-up and/or treatment in the hospital was explained. 06:09 Admission / Observation Status ordered. EDMS 06:10 2 GRAM SODIUM DIET ordered. EDMS 06:24 [facility] Payment Agreement was scanned into [employer] and attached to record. jp5 06:24 Financial registration complete. jp5 06:31 INFLUENZA A&B RAPID ANTIGEN Ordered. EDMS 15:00 ECG/EKG was scanned into [employer] and attached to record. EC:32 Rate is 85 beats/min. Rhythm is regular, Normal Sinus Rhythm with PACs. QRS [place] is pc Normal. HI interval is normal. QRS interval is normal. QT interval is normal. No Q waves. T waves are Normal. No ST changes noted. Clinical impression: Normal Sinus Rhythm. Administered Medications: 03:28 Drug: Albuterol-Ipratropium 1 neb [ipratropium-albuterol 0.5 mg-3 mg(2.5 mg base)/3 mL jh6 nebulization soln (1 neb)] Route: Nebulizer; 03:45 Drug: Solu-MEDROL 125 mg [Solu-Medrol 500 mg intravenous solution (125 mg)] Route: IVP; lf1 Site: right wrist; 03:52 Drug: Albuterol-Ipratropium 1 neb [ipratropium-albuterol 0.5 mg-3 mg(2.5 mg base)/3 mL jh6 nebulization soln (1 neb)] Route: Nebulizer; 04:30 Drug: Albuterol-Ipratropium 1 neb [ipratropium-albuterol 0.5 mg-3 mg(2.5 mg base)/3 mL jh6 nebulization soln (1 neb)] Route: Nebulizer; 05:18 Drug: Albuterol-Ipratropium 1 neb [ipratropium-albuterol 0.5 mg-3 mg(2.5 mg base)/3 mL jh6 nebulization soln (1 neb)] Route: Nebulizer; Critical Care Time: 05:51 Critical care time: Bedside Care: 35 minutes, Consultation: 20 minutes. Total time: 55 pc minutes Signatures: Dispatcher [employer] Julio Bhatt MD MD pc Sovie, Carolyn,RN RN neel Samara Pettit, Gary Reg Sayda, Vasile, Frame Cleaner Unit ml3 Trish Newby,ERROL RN sarwat3 Adolph Lozoya 5 Tu Monge RN RN [facility] [place] RN [facility] Toni Couch 6 The chart was reviewed and I authenticate all verbal orders and agree with the evaluation and treatment provided.Attachments: 06:24 [facility] Payment Agreement jp5 15:00 ECG/EKG gb Chart Complete MTDD
--- NOTE | 2016-11-26 09:40 | EDDOCDS ---
Nurse's Notes [facility] Name: Karina Blackmon Age: 66 yrs Sex: Female : 1950 Arrival Date: 11/24/2016 Time: 03:21 Bed 1 Private MD: Asa Mena Diagnosis: Hypoxemia;Chronic obstructive pulmonary disease with (acute) exacerbation;End stage renal disease Presentation: 11/24 03:38 Acuity: THIEN Level 2 nov 03:39 Presenting complaint: EMS states: FAMILY WAS CALLED BY PT COMPLAINING OF NOT FEELING neel well and increasing SOB. Went to bed earlier without complaints. pt states gradual increasing SOB x 2 hrs. Adult Sepsis Screening: The patient does not have new or worsening altered mentation. Patient has a respiratory rate of greater than or equal to 22 (1 point). Systolic blood pressure is greater than 100. Patient has a qSOFA score of 1- Negative Sepsis Screen. Suicide/Homicide risk assessment- the patient denies having any suicidal and/or homicidal ideations and does not present with any other emotional, behavioral or mental health complaints. Status: Patient is not a service delivery analyst or dependent. Transition of care: patient was not received from another setting of care. 03:39 Acuity: THIEN Level 2 neel 03:39 Method Of Arrival: Ambulance neel Triage Assessment: 03:42 General: Appears uncomfortable, Behavior is appropriate for age, cooperative. Pain: neel Denies pain. Cardiovascular: Rhythm is sinus rhythm. Respiratory: Onset: The symptoms/episode began/occurred 2 hrs, Airway is patent Respiratory effort is labored, Respiratory pattern is symmetrical, tachypnea Breath sounds with wheezes bilaterally. in right upper lobe, left upper lobe, right middle lobe, left lower lobe and right lower lobe. GI: Abdomen is distended. : Reports Renal Disease on Dialysis. 03:45 General: Strong bruit noted to left wrist forearm dialysis shunt.. neel Historical: - Allergies: Codeine Sulfate (Upset stomach); Lisinopril (angioedema to tongue); - Home Meds: 1. Activella 1-0.5 mg oral tab 1 tab once daily (Last dose: 11/23/2016 07:00) 2. aspirin 81 mg Oral TbEC 1 tab once daily (Last dose: 11/23/2016 07:00) 3. Atrovent 18 mcg/actuation Inhl aero 2 puff four times a day (Last dose: 11/23/2016 19:00) 4. albuterol sulfate 90 mcg/actuation Inhl aepb 2 puffs every 4-6 hours (Last dose: 11/23/2016 19:00) 5. Ativan 1 mg Oral tab 1 tab once daily (Last dose: 11/23/2016 19:00) 6. levothyroxine 100 mcg Oral tab once daily (Last dose: 11/23/2016 06:00) 7. Lexapro 10 mg Oral tab 1 tab once daily (Last dose: 11/23/2016 19:00) 8. minoxidil 2.5 mg Oral tab once daily 9. prednisone 2.5 mg oral tab 1 tab once daily (Last dose: 11/23/2016 07:00) 10. Arielle-Roby Rx 1-60-300 mg-mg-mcg oral tab daily (Last dose: 11/23/2016 07:00) 11. Tenormin 50 mg oral tab 1 tab once daily - PMHx: COPD; Hypertension; Hypothyroidism; Polycystic Kidney Disease; Renal Failure with Dialysis; - PSHx: Hip Arthroplasty, Right; - The history from nurses notes was reviewed: but there are no nursing notes, or only partial notes available at the time of my charting. - Social history: Smoking status: Patient uses tobacco products, current every day smoker. No barriers to communication noted, The patient speaks fluent Danish, Speaks appropriately for age. - : The pt / caregiver states he / she is not on anticoagulants. Home medication list is obtained from the patient. - Immunization history:: All immunizations up-to-date. - Exposure Risk Screening:: None identified. - Family history: Not pertinent. - Social history:: the patient is a former smoker, the patient does not drink alcohol. Screenin:48 Screening information is obtained from the patient. Fall risk: At risk due to age. neel Assistance ADL's: Requires assistance with housework, assistance is provided by family members. Abuse/DV Screen: The patient / caregiver reports he/she is: not in a situation that causes fear, pain or injury. Nutritional screening: On renal diet. Advance Directives: Currently, there is no health care proxy. There is no active DNR order. There is no living will. Advance directive information has not previously been placed in an [facility] medical record. home support is adequate. Assessment: 03:46 General: See triage assessment. General: Appears in no apparent distress, Behavior is neel appropriate for age, cooperative, pleasant. Neurological: No deficits noted. Cardiovascular: Rhythm is sinus rhythm. Cardiovascular: Heart tones present. 04:31 Reassessment: Patient appears in no apparent distress at this time. Patient states neel symptoms have improved. General: Behavior is appropriate for age, cooperative. Neurological: No deficits noted. Cardiovascular: Rhythm is sinus rhythm. Respiratory: Airway is patent Respiratory effort is even, unlabored, Respiratory pattern is regular, Breath sounds with wheezes expiratory. GI: Abdomen is distended. Derm: Skin is pink, warm & dry. 05:30 Reassessment: Patient appears in no apparent distress at this time. General: Appears neel comfortable, Behavior is appropriate for age, cooperative. Neurological: No deficits noted. Cardiovascular: Rhythm is sinus rhythm. Respiratory: Airway is patent Respiratory effort is even, unlabored, Respiratory pattern is regular, Breath sounds with wheezes bilaterally. Derm: Skin is pink, warm & dry. 06:54 Reassessment: Patient appears in no apparent distress at this time. General: Appears in neel no apparent distress, comfortable, Behavior is appropriate for age, cooperative. Neurological: No deficits noted. Cardiovascular: Rhythm is sinus rhythm. Respiratory: Airway is patent Respiratory effort is even, unlabored. Derm: Skin is pink, warm & dry. 07:30 Reassessment: Patient appears in no apparent distress at this time. Patient denies pain kr3 at this time. 08:22 Reassessment: Patient appears in no apparent distress at this time. Pain: Denies pain. kr3 Respiratory: Airway is patent Respiratory effort is even, unlabored. Derm: Skin is pink, warm & dry. Vital Signs: 03:26 BP 209 / 121; Pulse 110; Resp 18 S; Temp 98.8(TE); Pulse Ox 97% on R/A; Weight 46.27 kg jp4 (R); Height 5 ft. 2 in. (157.48 cm) (R); Pain 0/10; 04:00 BP 188 / 110 (auto/); neel 04:00 Pulse 88 MON; Resp 24 S; Pulse Ox 100% on 1 lpm NC; neel 04:15 BP 171 / 103 (auto/); neel 04:15 Pulse 81 MON; Resp 22 S; Pulse Ox 97% on 1 lpm NC; neel 04:30 BP 169 / 104 (auto/); neel 04:30 Pulse 85 MON; Resp 18 S; Pulse Ox 97% on 1 lpm NC; neel 04:45 BP 179 / 99 (auto/); neel 04:45 Pulse 81 MON; Resp 22 S; Pulse Ox 99% on 1 lpm NC; neel 05:00 BP 170 / 99 (auto/); neel 05:00 Pulse 82 MON; Resp 20 S; Pulse Ox 96% on 1 lpm NC; neel 05:15 BP 178 / 102 (auto/); neel 05:15 Pulse 87 MON; Resp 24 S; Pulse Ox 94% on 1 lpm NC; neel 05:30 BP 179 / 104 (auto/); neel 05:30 Pulse 97 MON; Resp 22 S; Pulse Ox 98% on 1 lpm NC; neel 05:45 BP 180 / 103 (auto/); neel 05:45 Pulse 89 MON; Resp 22 S; Pulse Ox 94% on 1 lpm NC; neel 06:00 BP 167 / 101 (auto/); neel 06:00 Pulse 97 MON; Resp 20 S; Pulse Ox 96% on 1 lpm NC; neel 06:15 BP 180 / 102 (auto/); neel 06:16 Pulse 91 MON; Resp 20 S; Pulse Ox 96% on 1 lpm NC; neel 06:30 BP 180 / 102 (auto/); neel 06:30 Pulse 85 MON; Resp 18 S; Pulse Ox 95% on 1 lpm NC; neel 06:45 BP 179 / 100 (auto/); neel 06:45 Pulse 83 MON; Resp 20 S; Pulse Ox 97% on 1 lpm NC; neel 07:26 BP 173 / 92; Pulse 80; Resp 16; Temp 98.9(O); Pulse Ox 96% on 1 lpm NC; Pain 0/10; kr3 07:45 BP 177 / 106 (auto/); kr3 07:45 Pulse 93 MON; kr3 08:00 BP 174 / 105 (auto/); kr3 08:00 Pulse 81 MON; kr3 08:15 BP 177 / 103 (auto/); kr3 08:15 Pulse 81 MON; kr3 03:26 Body Mass Index 18.66 (46.27 kg, 157.48 cm) 4 Vitals: 08:22 Log In Time N/A - ambulance arrival. kr3 ED Course: 03:22 Patient visited by Vasile Alfredo, Customs Brokerage Manager. ml3 03:22 Patient moved to Waiting ml3 03:23 Asa Mena is Private Physician. ml3 03:23 Tia Valverde,RN is Primary Nurse. ml3 03:23 Julio Grace MD is Attending Physician. pc 03:23 Patient visited by Julio Grace MD. pc 03:23 Patient moved to 1 ml3 03:27 Patient visited by Timo Foster. jp4 03:30 Patient visited by Ayde Del Valle, DAVIDSON. lizeth 03:30 EKG done. (by ED staff). Reviewed by Julio Grace MD. lizeth 03:35 Inserted saline lock: 20 gauge in right forearm and blood collected. neel 03:38 Triage Initiated nov 03:50 BLOOD CULTURES Sent. neel 03:51 -Arterial Blood Gas Sent. neel 04:28 Patient visited by Tia Valverde RN. neel 05:38 Patient visited by Julio Grace MD. pc 05:53 Tiffanie Monroe library media specialist. ys2 05:53 Tiffanie Monroe is Hospitalizing Provider. pc 06:24 [facility] Payment Agreement was scanned into [id number] and attached to record. jp5 07:07 INFLUENZA A&B RAPID ANTIGEN Sent. kr3 07:09 Primary Nurse role handed off by Tia Valverde,RN neel 07:26 The patient / caregiver is instructed regarding the plan of care and ED course. Patient lilly has correct armband on for positive identification. Placed in gown. Bed in low position. Call light in reach. Side rails up X2. applied research director on. Pulse ox on. NIBP on. 07:44 Chest, 1 View Returned. EDMS 08:18 No procedures done that require assistance. kr3 15:00 ECG/EKG was scanned into [employer] and attached to record. gb Administered Medications: 03:28 Drug: Albuterol-Ipratropium 1 neb [ipratropium-albuterol 0.5 mg-3 mg(2.5 mg base)/3 mL jh6 nebulization soln (1 neb)] Route: Nebulizer; 03:45 Drug: Solu-MEDROL 125 mg [Solu-Medrol 500 mg intravenous solution (125 mg)] Route: IVP; lf1 Site: right wrist; 03:52 Drug: Albuterol-Ipratropium 1 neb [ipratropium-albuterol 0.5 mg-3 mg(2.5 mg base)/3 mL 6 nebulization soln (1 neb)] Route: Nebulizer; 04:30 Drug: Albuterol-Ipratropium 1 neb [ipratropium-albuterol 0.5 mg-3 mg(2.5 mg base)/3 mL 6 nebulization soln (1 neb)] Route: Nebulizer; 05:18 Drug: Albuterol-Ipratropium 1 neb [ipratropium-albuterol 0.5 mg-3 mg(2.5 mg base)/3 mL 6 nebulization soln (1 neb)] Route: Nebulizer; Output: 06:18 Urine: 200.00ml; Stool: 1 (Formed Stool) ; Total: 200.00ml. neel RT: 03:25 O2 via Venturi mask \T\ 3L/min - 28%. [facility] 03:28 Initial Med Neb Given as ordered Patient was instructed and evaluated on procedure 6 Patient tolerated procedure well without adverse effect. Respiratory: Airway is patent Respiratory effort is even, labored, Respiratory pattern is regular symmetrical, Breath sounds are coarse in right upper lobe and left upper lobe Breath sounds are diminished in right upper lobe, left upper lobe, right middle lobe, left lower lobe and right lower lobe Breath sounds with wheezes in right upper lobe, left upper lobe, right middle lobe, left lower lobe and right lower lobe at expiration. 03:45 ABG's drawn from right radial artery pressure held for 5 minutes no bleeding noted 6 pressure bandage applied specimen sent pt. tolerated well. 03:52 Subsequent Med Neb Given as ordered Patient was reinforced on procedure Patient jh6 tolerated procedure well without adverse effect. Respiratory: Airway is patent Respiratory effort is even, unlabored, Respiratory pattern is regular symmetrical, Breath sounds are diminished in right upper lobe, left upper lobe, right middle lobe, left lower lobe and right lower lobe Breath sounds with wheezes in right upper lobe, left upper lobe, right middle lobe, left lower lobe and right lower lobe at expiration. 04:33 Subsequent Med Neb Given as ordered Patient was reinforced on procedure Patient jh6 tolerated procedure well without adverse effect. O2 via nasal cannula \T\ 1L/min. Respiratory: Airway is patent Respiratory effort is even, unlabored, Respiratory pattern is regular symmetrical, Breath sounds with wheezes in right upper lobe, left upper lobe, right middle lobe, left lower lobe and right lower lobe at expiration. 05:18 Subsequent Med Neb Given as ordered Patient was reinforced on procedure Patient vijay6 tolerated procedure well without adverse effect. Respiratory: Airway is patent Respiratory effort is even, unlabored, Respiratory pattern is regular symmetrical, Breath sounds are diminished in left lower lobe and right lower lobe Breath sounds with wheezes in right upper lobe, left upper lobe, right middle lobe, left lower lobe and right lower lobe at expiration. Order Results: Lab Order: -Arterial Blood Gas; SPEC'M 11/24/16 03:52 Test: ABG pH (ARTERIAL); Value: 7.373; Range: 7.350-7.450; Units: UNITS; Status: F Test: ABG PARTIAL PRESSURE CO2; Value: 41.6; Range: 35.0-45.0; Units: mmHg; Status: F Test: ABG PARTIAL PRESSURE O2; Value: 73.9; Range: 75.0-100.0; Abnormal: Below low normal; Units: mmHg; Status: F Test: ABG TOTAL CO2; Value: 24.9; Range: 23.0-31.0; Units: MEQ/L; Status: F Test: ABG HCO3; Value: 23.7; Range: 22.0-26.0; Units: MEQ/L; Status: F Test: ABG BASE EXCESS; Value: -1.5; Range: -2.0-2.0; Status: F Test: ABG STANDARD HCO3; Value: 23.2; Range: 22.0-26.0; Units: MEQ/L; Status: F Test: ABG O2 SATURATION; Value: 94.9; Range: 95.0-99.0; Abnormal: Below low normal; Units: %; Status: F Test: ABG DEVICE; Value: NASAL PAULA; Status: F Lab Order: B-Type Natiuretic Peptide; SPEC'M 11/24/16 03:36 Test: BRAIN NATRIURETIC PEPTIDE; Value: 727; Range: <100; Abnormal: Above high normal; Units: PG/ML; Status: F Lab Order: Basic Metabolic Profile; SPEC'M 11/24/16 03:36 Test: GLUCOSE, FASTING; Value: 85; Range: 80-110; Units: MG/DL; Status: F Test: BLOOD UREA NITROGEN; Value: 26; Range: 7-18; Abnormal: Above high normal; Units: MG/DL; Status: F Test: CREATININE FOR GFR; Value: 4.95; Range: 0.55-1.02; Abnormal: Above high normal; Units: MG/DL; Status: F Test: GLOMERULAR FILTRATION RATE; Value: 9.3; Range: >45; Abnormal: Below low normal; Status: F Test: SODIUM LEVEL; Value: 143; Range: 136-145; Units: MEQ/L; Status: F Test: POTASSIUM SERUM; Value: 4.5; Range: 3.5-5.1; Units: MEQ/L; Status: F Test: CHLORIDE LEVEL; Value: 107; Range: 98-107; Units: MEQ/L; Status: F Test: CARBON DIOXIDE LEVEL; Value: 28; Range: 21-32; Units: MEQ/L; Status: F Test: ANION GAP; Value: 8; Range: 8-16; Units: MEQ/L; Status: F Test: CALCIUM LEVEL; Value: 8.3; Range: 8.8-10.2; Abnormal: Below low normal; Units: MG/DL; Status: F Test Note: ; Units are mL/min/1.73 m2 Chronic Kidney Disease Staging per NKF: Stage I & II GFR >=60 Normal to Mildly Decreased Stage III GFR 30-59 Moderately Decreased Stage IV GFR 15-29 Severely Decreased Stage V GFR <15 Very Little GFR Left ESRD GFR <15 on CUBE MACHINE TENDER Lab Order: CBC with Diff; SPEC'M 11/24/16 03:36 Test: WHITE BLOOD COUNT; Value: 7.6; Range: 4.0-10.0; Units: K/mm3; Status: F Test: RED BLOOD COUNT; Value: 3.90; Range: 4.00-5.40; Abnormal: Below low normal; Units: M/mm3; Status: F Test: HEMOGLOBIN; Value: 11.5; Range: 12.0-16.0; Abnormal: Below low normal; Units: g/dl; Status: F Test: HEMATOCRIT; Value: 36.7; Range: 36.0-47.0; Units: %; Status: F Test: MEAN CORPUSCULAR VOLUME; Value: 94.1; Range: 80.0-96.0; Units: fl; Status: F Test: MEAN CORPUSCULAR HEMOGLOBIN; Value: 29.4; Range: 27.0-33.0; Units: pg; Status: F Test: MEAN CORPUSCULAR HGB CONC; Value: 31.3; Range: 32.0-36.5; Abnormal: Below low normal; Units: g/dl; Status: F Test: RED CELL DISTRIBUTION WIDTH; Value: 16.7; Range: 11.5-14.5; Abnormal: Above high normal; Units: %; Status: F Test: PLATELET COUNT, AUTOMATED; Value: 128; Range: 150-450; Abnormal: Below low normal; Units: k/mm3; Status: F Test: NEUTROPHILS %; Value: 74.9; Range: 36.0-66.0; Abnormal: Above high normal; Units: %; Status: F Test: LYMPH %; Value: 14.5; Range: 24.0-44.0; Abnormal: Below low normal; Units: %; Status: F Test: MONO %; Value: 4.9; Range: 0.0-5.0; Units: %; Status: F Test: EOS %; Value: 3.6; Range: 0.0-3.0; Abnormal: Above high normal; Units: %; Status: F Test: BASO %; Value: 0.7; Range: 0.0-1.0; Units: %; Status: F Test: LARGE UNSTAINED CELL %; Value: 1.5; Range: 0.0-4.0; Units: %; Status: F Test: NEUTROPHILS #; Value: 5.7; Range: 1.8-7.7; Units: K/mm3; Status: F Test: LYMPH #; Value: 1.1; Range: 1.5-4.5; Abnormal: Below low normal; Units: K/mm3; Status: F Test: MONO #; Value: 0.4; Range: 0.0-0.8; Units: K/mm3; Status: F Test: EOS #; Value: 0.3; Range: 0.0-0.50; Units: K/mm3; Status: F Test: BASO #; Value: 0.0; Range: 0.0-0.2; Units: K/mm3; Status: F Test: LARGE UNSTAINED CELL #; Value: 0.1; Range: 0.0-0.4; Units: K/mm3; Status: F Lab Order: Cardiac Injury Profile; SPEC'M 11/24/16 03:36 Test: CPK CREATINE PHOSPHOKINASE; Value: 98; Range: 26-192; Units: U/L; Status: F Test: CK-MB VALUE MASS; Value: 2.5; Range: 0.0-3.6; Units: NG/ML; Status: F Test: MB/CK RELATIVE INDEX; Value: 2.55; Range: < OR =4; Status: F Test Note: ; DIAGNOSIS CRITERIA MMB ng/ml Relative Index (RI) NON-AMI < or = 5 N/A [place] ZONE > 5 < or = 4 AMI > 5 > 4 Lab Order: Troponin; SPEC'M 11/24/16 03:36 Test: TROPONIN I; Value: 0.02; Range: < 0.10; Units: NG/ML; Status: F Test Note: ; Troponin I Reference Interval for Help Remedies LOCI: 99th Percentile= 0.00-0.045 ng/ml Risk Stratification: <= 0.10 ng/ml Decreased Risk for Adverse Clinical Events. 0.10-1.50 ng/ml Increased Risk for Adverse Clinical Events. Evaluation of additional criterion and/or repeat testing in 2-6 hours is suggested to rule out myocardial damage. >= 1.50 ng/ml Indicative of Myocardial Injury. Lab Order: INFLUENZA A&B RAPID ANTIGEN; SPEC'M 11/24/16 07:06 Test: INFLUENZA A RAPID SCR by ICA; Value: INFLUENZA A RESULTS NEGATIVE; Status: F Test: INFLUENZA A RAPID SCR by ICA; Value: Comments:; Status: F Test: INFLUENZA B RAPID SCR by ICA; Value: INFLUENZA B RESULTS NEGATIVE; Status: F Test Note: ; The Influenza test is a direct rapid immunoassay for the qualitative detection of Influenza viral antigen. Cell culture (Viral Culture) testing should be considered to confirm NEGATIVE results and to assist in detecting other viruses that can provide similar clinical symptoms. Please contact the lab within 24 hours ([phone]) if confirmatory testing is desired. Radiology Order: Chest, 1 View Test: Chest, 1 View REASON FOR EXAMINATION: Shortness of Breath; Clinical: Shortness of breath .; ; Comparison: 11/12/2016 .; ; Findings:; The mediastinum and cardiac silhouette are stable and within normal limits for; portable technique. The lung louis are stable and clear without acute; consolidation, effusion, or pneumothorax. Skeletal structures are intact.; ; Impression:; No acute cardiopulmonary process.; ; ; Signed by; Colin Mathew MD 11/24/2016 07:34 A; Outcome: 05:53 Decision to Hospitalize by Provider. 08:18 Discharge Assessment: patient administered narcotics - no. The following High Risk kr3 Discharge criteria are identified: None. Admitted to Med/Surg accompanied by tech, via stretcher, with oxygen, with chart. Condition: stable. No special radiology studies were completed. Property :Personal belongings accompany Pt. 08:38 Patient left the ED. kr3 Signatures: Dispatcher [employer] EDMS Julio Grace MD MD pc Newman, ERROL Asif RN, CarolynRN Samara Wong cas, Reg Reg gb Sayda, Vasile, Customs Brokerage Manager Unit ml3 Trish NewbyRN Juana Peguero RN RN lf1 Ayde Del Valle, [facility] Toni Burgos jh6 Timo oFster jp4 Adolph Lozoya jp5 Tiffanie Monroe ys2 Chart Complete MTDD
--- NOTE | 2016-11-26 20:32 | IPN ---
DATE: 11/26/2016 SUBJECTIVE: The patient was seen and examined at the bedside today in the morning at dialysis center. The patient feels much better. Her shortness of breath has improved. Her blood pressure, although, is still slightly elevated. The patient has not been started on dialysis. She is scheduled for hemodialysis as an outpatient today in the afternoon. REVIEW OF SYSTEMS: The patient denies any fevers, chills, rigors, headache, nausea, vomiting, chest pain, shortness of breath, pain in abdomen, constipation or diarrhea. The rest of the review of systems is negative. OBJECTIVE: VITAL SIGNS: Temperature is 97.8 degrees Fahrenheit, blood pressure is 178/106, pulse is 54, respiratory rate of 18, saturating 96% on room air. INTAKE/OUTPUT: Urine output recorded as 550 mL yesterday, 500 mL so far today since overnight. Weight on the bed scale is 44.3 kg. PHYSICAL EXAMINATION: GENERAL: The patient is awake, alert, oriented times three, laying in bed, in no apparent distress. HEAD AND NECK EXAM: Extraocular muscles intact. Pupils equally round and reactive to light. Mucous membranes are moist. Neck is supple. There is no jugular venous distention (JVD). CARDIOVASCULAR: S1, S2, regular rate. No murmur, rub or gallop. RESPIRATORY: Chest is clear to auscultation bilaterally. Bilateral equal air entry. No rales or rhonchi. ABDOMEN: Abdomen is soft. Positive bowel sounds. The patient's kidney and liver are palpable because she has polycystic liver and kidney disease. EXTREMITIES: No clubbing or cyanosis. No edema of the bilateral lower extremities. CENTRAL NERVOUS SYSTEM: No focal neurological deficit. Power is 5/5 in all extremities. PSYCHIATRIC: Normal mood and affect. LAB REVIEW: CBC showed a WBC of 7.8, hemoglobin 10.7. BMP showed sodium 138, potassium 3.6, chloride 102, bicarbonate 27, BUN 47, creatinine is 5.1, calcium is 8.6. Echocardiogram report: The patient has normal LV size and systolic function with grade 1 diastolic dysfunction. Left ventricular (LV) ejection fraction is around 70% and moderate pulmonary hypertension. CURRENT MEDICATIONS: The patient's medications were all reviewed by me. There is no change in the medications at this time. She continues to be on losartan 50 mg daily and atenolol 25 mg by mouth daily. The patient's blood pressure is still elevated at this time. Her losartan dose will need to be increased to 100 mg by mouth daily. ASSESSMENT: A 66-year-old female with a past medical history of end-stage renal disease, on hemodialysis, secondary to autosomal dominant polycystic kidney disease, history of chronic obstructive pulmonary disease (COPD) and hypertension, admitted this time with progressive shortness of breath and COPD exacerbation. PLAN: 1. COPD exacerbation. The patient's symptoms are much better. Her shortness of breath has improved. Her steroids have been switched to oral steroids, and there is no wheezing or rhonchi on exam. 2. Hypertension and grade 1 diastolic dysfunction. The patient is currently on atenolol. Her losartan dose is 50 mg; I shall have to increase her losartan to 100 mg by mouth daily because she is still hypertensive. Her blood pressure would also improve with hemodialysis as an outpatient today. 3. End-stage renal disease, on hemodialysis. The patient's regular dialysis days are Tuesday, Tuesday, Tuesday. She is scheduled to be dialyzed as an outpatient today. No urgent need to do hemodialysis today inpatient. 4. Tobacco abuse. I have already ordered the nicotine patches through our pharmacy. The patient is trying to quit smoking. She would go home and start using the nicotine patches. 5. Discharge planning: It is okay to discharge the patient from a nephrology standpoint. She will be dialyzed as an outpatient today, and her antihypertensive medications would also be adjusted as outpatient if blood pressure stays high during hemodialysis.
[2016-11-26] MEDS ORDERED: predniSONE 20 MG TAB PO SCH (21:00)
== END 2016-11-26 10:58 | disposition home or self-care (01) | DRG 190 ==
LOC: M ED 03:21 → M ED INP 06:06 → M MSPAV 08:41
PROVIDERS: ADMIT Internal Medicine; ATTEND Internal Medicine
DX: J44.1 Chronic obstructive pulmonary disease with (acute) exacerbation (principal); N18.6 End stage renal disease; Q61.2 Polycystic kidney, adult type; E03.9 Hypothyroidism, unspecified; F41.9 Anxiety disorder, unspecified; F32.9 Major depressive disorder, single episode, unspecified; F17.200 Nicotine dependence, unspecified, uncomplicated; Z88.5 Allergy status to narcotic agent; Z88.8 Allergy status to other drugs, medicaments and biological substances; Z79.82 Long term (current) use of aspirin; Z79.899 Other long term (current) drug therapy; D63.1 Anemia in chronic kidney disease; I10 Essential (primary) hypertension

== ENCOUNTER 2016-12-14 16:19 | Emergency (ER) | payer OTHER, MEDICAID ==
[~2016-12-14 16:19] MED LIST changes: -LORA1TAB PO; +LORA1TAB12 PO; +LOSA25TA8 PO; +MEDR4PAK PO; +PRED25TA PO
[2016-12-14] MEDS ORDERED: methylPREDNISolone INJ 125 MG/2 ML VIAL (J2930) As Ordered ONE (16:57)
[2016-12-14] MEDS ORDERED: IPRATROPIUM 0.5MG/ALBUTEROL 2.5MG INH SOL UD 3ML (DUONEB)(J7620) As Ordered ONE (17:05)
[2016-12-14] MEDS ORDERED: ALBUTEROL SULFATE 2.5 MG/0.5 ML INH NEB SOLN As Ordered ONE (17:05)
[2016-12-14 17:21] LABS: BASO % 0.7 % (0.0-1.0); EOS # 0.2 K/mm3 (0.0-0.50); EOS % 3.5 % (0.0-3.0); LARGE UNSTAINED CELL # 0.1 K/mm3 (0.0-0.4); LYMPH # 0.8 K/mm3 (1.5-4.5); MEAN CORPUSCULAR HEMOGLOBIN 30.2 pg (27.0-33.0); MEAN CORPUSCULAR HGB CONC 32.1 g/dl (32.0-36.5); MEAN CORPUSCULAR VOLUME 94.1 fl (80.0-96.0); MONO # 0.3 K/mm3 (0.0-0.8); MONO % 4.9 % (0.0-5.0); NEUTROPHILS # 4.1 K/mm3 (1.8-7.7); NEUTROPHILS % 74.9 % (36.0-66.0); PLATELET COUNT, AUTOMATED 121 k/mm3 (150-450); RED CELL DISTRIBUTION WIDTH 17.8 % (11.5-14.5); WHITE BLOOD COUNT 5.4 K/mm3 (4.0-10.0)
--- NOTE | 2016-12-14 17:33 | REP ---
SINGLE VIEW CHEST: Single AP view of the chest is performed. There is no acute infiltrate or pulmonary edema. Heart is normal in size. Mediastinal silhouette is unchanged since prior exam of 11/24/2016. IMPRESSION: No acute pulmonary disease. Signed by Cristopher Montoya MD 12/14/2016 07:59 P
[2016-12-14 17:49] LABS: CALCIUM LEVEL 8.5 MG/DL (8.8-10.2); CREATININE FOR GFR 4.49 MG/DL (0.55-1.02); GLOMERULAR FILTRATION RATE 10.4 (>45); POTASSIUM SERUM 3.9 MEQ/L (3.5-5.1)
[2016-12-14] MEDS ORDERED: LOSA100T36 PO (18:39)
[2016-12-14] MEDS ORDERED: SYNT137T7 PO (18:39)
[2016-12-14] MEDS ORDERED: MINO25TA PO (18:39)
[2016-12-14] MEDS ORDERED: SYMB80INH INH (18:39)
[2016-12-14] MEDS ORDERED: ATEN25TA PO (18:39)
[2016-12-14] MEDS ORDERED: LORA1TAB12 PO (18:39)
[2016-12-14 19:02] LABS: ABG BASE EXCESS 1.5 (-2.0-2.0); ABG HCO3 24.9 MEQ/L (22.0-26.0); ABG PARTIAL PRESSURE CO2 35.2 mmHg (35.0-45.0); ABG PARTIAL PRESSURE O2 77.4 mmHg (75.0-100.0); ABG STANDARD HCO3 25.8 MEQ/L (22.0-26.0); ABG pH (ARTERIAL) 7.468 UNITS (7.350-7.450)
--- NOTE | 2016-12-14 20:30 | ECGEPIP ---
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
[2016-12-14] MEDS ORDERED: AZITHROMYCIN 250 MG TAB As Ordered ONE (21:49)
[2016-12-14] MEDS ORDERED: predniSONE 20 MG TAB As Ordered ONE (21:49)
--- NOTE | 2016-12-14 22:32 | EDDOCDS ---
Physician Documentation [facility] Name: Karina Blackmon Age: 66 yrs Sex: Female : 1950 Arrival Date: 12/14/2016 Time: 16:19 Bed Admit Hold Private MD: Sarah Pickard Disposition: 12/14 18:01 Critical Care:. pc Disposition: 12/14/16 21:42 Discharged to Home/Self Care. Impression: Chronic obstructive pulmonary disease with (acute) exacerbation - resolved, End stage renal disease. - Condition is Stable. - Discharge Instructions: Chronic Obstructive Pulmonary Disease. - Prescriptions for Zithromax Z- Stoney 250 mg Oral Tablet - take 2 tablet by ORAL route once daily for 3 days; 6 tablet. Prednisone 10 mg Oral Tablet - take 1 tablet by ORAL route as directed Day1-4: 4 po, day5-7: 3 po, day8-10: 2 po, oxn52-80:1 po; 33 tablet. - Medication Reconciliation, Local Pharmacy Hours form. - Follow up: Sarah Pickard; When: Call to arrange an appointment; Reason: Recheck today's complaints, Continuance of care. Follow up: Asa Mena; When: As previously arranged; Reason: Continuance of care. - Problem is an acute exacerbation. - Symptoms have improved. HPI: 16:54 This 66 yrs old Female presents to ER via Wheelchair with complaints of pc Breathing Difficulty. 16:54 The history is obtained from the patient, the patient's family/friend. The patient pc presents with shortness of breath, with a prior history of COPD. The symptoms began gradually 2 days ago. The symptoms are continuous, and are unchanged since they started. There were no precipitating events that led to the current complaints. The patient has shortness of breath at rest, with light activity. At their worst, the symptoms were moderate. In the emergency department, the symptoms are unchanged. The patient's shortness of breath is aggravated by exertion, coughing, is alleviated by nothing. The patient's dyspnea was accompanied with no other symptoms. The patient has experienced similar episodes in the past, chronically. The patient has been recently been admitted at [facility], was discharged a couple of weeks ago, for similar complaints. Historical: - Allergies: Codeine Sulfate (Upset stomach); Lisinopril (angioedema to tongue); - Home Meds: 1. Tenormin 25 mg oral tab once daily 2. minoxidil 2.5 mg Oral tab once daily 3. Lexapro 10 mg Oral tab 1 tab once daily 4. levothyroxine 137 mcg oral cap once daily 5. Atrovent 18 mcg/actuation Inhl aero 2 puff four times a day 6. aspirin 81 mg Oral TbEC 1 tab once daily 7. albuterol sulfate 90 mcg/actuation Inhl aepb 2 puffs every 4-6 hours 8. Ativan 1 mg Oral tab 1 tab 2 times per day 9. Activella 1-0.5 mg oral tab 1 tab once daily 10. Cozaar 100 mg Oral tab 1 tab once daily 11. Arielle-Roby Rx 1-60-300 mg-mg-mcg oral tab daily - PMHx: COPD; Hypertension; Hypothyroidism; Polycystic Kidney Disease; Renal Failure with Dialysis; - PSHx: Dialysis Graft Construction, Arm; Hip Arthroplasty, Right; - The history from nurses notes was reviewed: and I agree with what is documented. - Social history: Smoking status: Patient uses tobacco products, current every day smoker. No barriers to communication noted, The patient speaks fluent Tajik, Speaks appropriately for age. - : The pt / caregiver states he / she is not on anticoagulants. Home medication list is obtained from the patient, family members. - Exposure Risk Screening:: None identified. - Immunization history:: All immunizations up-to-date. - Family history: Not pertinent. - Social history:: the patient is a former smoker, the patient does not drink alcohol. ROS: 16:54 All systems are negative except as listed. The gastrointestinal and genitourinary pc components are also addressed in the HPI. Exam: 16:54 General Appearance: alert, the patient is in mild distress. pc 16:54 EENT: ears, nose and throat normal, pharynx normal, mucous membranes moist pale conjunctiva. 16:54 Neck: normal inspection. 16:54 Respiratory: no pleuritic chest pain, speaks in full sentences, the patient is in mild respiratory distress, auscultation reveals wheezes, diffusely, decreased air entry noted throughout 16:54 Cardiovascular: normal heart rate, normal rhythm, no jugular venous distension appreciated, no murmurs, no gallop, no friction rub. 16:54 Abdomen: non-tender, non-distended, no organomegaly, no ascites. 16:54 Skin: normal color, warm, dry. 16:54 Extremities: non-tender, normal range of motion of all joints, no pedal edema. 16:54 Neuro: alert, oriented to person, place and time, cranial nerves normal as tested, no motor deficits, no sensory deficits. 16:54 Psych: normal mood. Vital Signs: 16:20 BP 177 / 94; Pulse 82; Resp 20 S; Temp 98.0; Pulse Ox 95% on R/A; Weight 44.91 kg / dd6 99.01 lbs (R); Height 5 ft. 2 in. (157.48 cm) (R); 17:39 BP 166 / 86 (auto/); ck1 17:40 Pulse 68 MON; Pulse Ox 89% ; ck1 17:50 BP 152 / 86 (auto/); ck1 17:51 Pulse 66 MON; Pulse Ox 96% ; ck1 18:05 BP 160 / 84 (auto/); ck1 18:06 Pulse 70 MON; Pulse Ox 97% ; ck1 18:20 Pulse 72 MON; Pulse Ox 97% ; ck1 18:20 BP 163 / 86 (auto/); ck1 19:45 BP 143 / 82; Pulse 84; Resp 82; Temp 98.0; Pulse Ox 94% on R/A; Pain 0/10; cf2 22:27 BP 132 / 78; Pulse 82; Resp 16; Temp 98.2; Pulse Ox 92% on R/A; Pain 0/10; cf2 16:20 Body Mass Index 18.11 (44.91 kg, 157.48 cm) dd6 MDM: 16:51 Solu-MEDROL 125 mg IVP once ordered. pc 16:51 -Blood Culture (Adults Only), peripheral from different site, or from device/port/PICC pc etc. if present ordered. 16:51 Agricultural Lender/Pulse Ox/q 15 min VS ordered. pc 16:51 IV Saline Lock ordered. pc 16:51 Rhythm Strip to chart ordered. pc 16:51 Albuterol-Ipratropium 1 neb Nebulizer every 20 minutes x3 ordered. pc 16:51 Call Respiratory ordered. pc 16:53 Chest, 1 View Ordered. EDMS 16:53 -Blood Culture Ordered. EDMS 16:53 Basic Metabolic Profile Ordered. EDMS 16:53 CBC with Diff Ordered. EDMS 16:53 Cardiac Injury Profile Ordered. EDMS 16:53 Troponin Ordered. EDMS 16:53 ECG WITH READING ER PHYS+CARDIAG ordered. EDMS 16:53 Call Respiratory complete. mb9 16:54 Differential diagnosis: Bronchitis Chronic Obstructive Pulmonary Disease pneumonia. pc Plan: labs, meds, nebs, CXR, EKG. 16:59 Test interpretation: EKG. pc 17:22 Test interpretation: X-RAY - interpreted by Radiologist and personally reviewed, 1 view pc chest no acute disease. 17:22 -Blood Culture (Adults Only), peripheral from different site, or from device/port/PICC tmm1 etc. if present complete. 17:23 BLOOD CULTURES Ordered. EDMS 17:27 CBC with Diff Reviewed. pc 17:38 Chest, 1 View Reviewed. pc 17:52 Basic Metabolic Profile Reviewed. pc 17:52 Cardiac Injury Profile Reviewed. pc 17:52 Troponin Reviewed. pc 17:56 BED REQUEST+ADM ordered. EDMS 17:56 Data reviewed: old medical records, vital signs, nurses notes, EKG(s), lab test pc results, all radiology studies and available results. Test interpretation: LAB - all labs as ordered have been reviewed, interpreted and considered in the overall management of the clinical presentation;. The patient has been re-examined and re-evaluated. The patient's symptoms have mildly improved after treatment, but she continues to have poor air entry and is still wheezing. She will require admission. 18:01 Physician consultation: Dr. Michaela Lopez was contacted at 18:02, regarding admission, pc and will see patient in ED. Disposition: The historical points, examination findings, and any diagnostic results supporting the provided diagnosis, were discussed with the patient or legal guardian. The need for further work-up and/or treatment in the hospital was explained. 18:06 ARTERIAL BLOOD GAS Ordered. EDMS 18:06 BRAIN NATIURETIC PEPTIDE Ordered. EDMS 18:26 Financial registration complete. gb 18:31 RENAL DIET+DIET ordered. EDMS 18:32 [facility] Payment Agreement was scanned into [employer] and attached to record. gb 21:12 ARTERIAL BLOOD GAS Reviewed. pc 21:12 BRAIN NATIURETIC PEPTIDE Reviewed. pc 21:12 Chest, 1 View Reviewed. pc 21:13 Ambulate Patient wth Pulse Oximetry ordered. pc 21:29 Repeat EKG (put time details section) ordered. pc 21:32 Repeat EKG (put time details section) complete. tmm1 21:33 ECG WITH READING ER PHYS ordered. EDMS 21:39 Test interpretation: EKG. pc 21:39 ED course: After being evaluated for admission, the patient now requests discharge pc home. She was able to ambulate and maintain a PO of 89-91% on room air. Her pulse did increase for 70 to 95-100 but she was asymptomatic. Dr. Vasques has arranged for her discharge home . 21:45 predniSONE 40 mg PO Per package directions; dispense to go: take in the A.M. ordered. pc 21:45 azithromycin 500 mg PO once ordered. pc EC:59 Rate is 67 beats/min. Rhythm is regular, Normal Sinus Rhythm with PACs. Left axis pc deviation noted. QRS is negative in leads II, aVF. AR interval is normal. QRS interval is normal. QT interval is normal. No Q waves. T waves are Inverted in leads III, aVF. No ST changes noted. Clinical impression: Normal Sinus Rhythm and LAD, Nonspecific T wave changes. Changes noted from previous ECG on November 24, 2016. 21:39 Rate is 68 beats/min. Rhythm is regular, Normal Sinus Rhythm. Left axis deviation pc noted. QRS is negative in leads II, aVF. AR interval is normal. QRS interval is normal. QT interval is normal. No Q waves. T waves are Normal. No ST changes noted. Clinical impression: Normal Sinus Rhythm, Incomplete RBBB, and LAD. Administered Medications: 17:02 Drug: Solu-MEDROL 125 mg [Solu-Medrol 500 mg intravenous solution (125 mg)] Route: IVP; mb9 Site: right antecubital; 17:18 Drug: Albuterol-Ipratropium 1 neb [ipratropium-albuterol 0.5 mg-3 mg(2.5 mg base)/3 mL rs5 nebulization soln (1 neb)] Route: Nebulizer; 17:18 Drug: Albuterol-Ipratropium 1 neb [ipratropium-albuterol 0.5 mg-3 mg(2.5 mg base)/3 mL rs5 nebulization soln (1 neb)] Route: Nebulizer; 17:19 Drug: Albuterol-Ipratropium 1 neb [ipratropium-albuterol 0.5 mg-3 mg(2.5 mg base)/3 mL rs5 nebulization soln (1 neb)] Route: Nebulizer; 22:05 Drug: predniSONE 40 mg Route: PO; cf2 22:11 Follow up: Response: No significant change. cf2 22:05 Drug: azithromycin 500 mg [azithromycin 250 mg tablet (2 tabs)] Route: PO; cf2 22:11 Follow up: Response: No significant change. cf2 Critical Care Time: 18:01 Critical care time: Bedside Care: 20 minutes, Consultation: 10 minutes, Family pc Intervention: 10 minutes. Total time: 40 minutes Signatures: Dispatcher [employer] EDMS Julio Grace MD MD pc Samara Pettit, Reg Reg gb Trish Newby RN RN kr3 Andreina Dyson, PLANNING SPECIALIST PLANNING SPECIALIST tmm1 Rohit Maloney RN RN mb9 Nimisha Bradley RN RN cf2 Aramis Pfeiffer RT rs5 The chart was reviewed and I authenticate all verbal orders and agree with the evaluation and treatment provided.Attachments: 18:32 [facility] Payment Agreement gb MTDD
--- NOTE | 2016-12-14 22:32 | EDDOCDS ---
Nurse's Notes [facility] Name: Chiquita Blackmon Age: 66 yrs Sex: Female : 1950 Arrival Date: 12/14/2016 Time: 16:19 Bed Admit Hold Private MD: Sarah Pickard Diagnosis: Chronic obstructive pulmonary disease with (acute) exacerbation-resolved;End stage renal disease Presentation: 12/14 16:28 Presenting complaint: Patient states: DIFFICULTY BREATHING FOR 2 days. Using inhalers kr3 with no relief. Adult Sepsis Screening: The patient does not have new or worsening altered mentation. Patient's respiratory rate is less than 22. Systolic blood pressure is greater than 100. Patient has a qSOFA score of 0- Negative Sepsis Screen. Suicide/Homicide risk assessment- the patient denies having any suicidal and/or homicidal ideations and does not present with any other emotional, behavioral or mental health complaints. Status: Patient is not a family service worker or dependent. Transition of care: patient was not received from another setting of care. 16:28 Acuity: THIEN Level 3 kr3 16:28 Method Of Arrival: Wheelchair kr3 16:34 Red Flag criteria, patient assessed and taken directly to a bed. kr3 Triage Assessment: 16:32 General: Appears comfortable, Behavior is appropriate for age, cooperative. Pain: kr3 Denies pain. The patient is triaged at the bedside. See Assessment in Nurses Notes section of ED record. Neurological: Level of Consciousness is awake, alert. Respiratory: Onset: The symptoms/episode began/occurred 2 days ago, Airway is patent Respiratory effort is even, labored, Reports shortness of breath on exertion cough that is. Derm: Skin is normal. Historical: - Allergies: Codeine Sulfate (Upset stomach); Lisinopril (angioedema to tongue); - Home Meds: 1. Tenormin 25 mg oral tab once daily 2. minoxidil 2.5 mg Oral tab once daily 3. Lexapro 10 mg Oral tab 1 tab once daily 4. levothyroxine 137 mcg oral cap once daily 5. Atrovent 18 mcg/actuation Inhl aero 2 puff four times a day 6. aspirin 81 mg Oral TbEC 1 tab once daily 7. albuterol sulfate 90 mcg/actuation Inhl aepb 2 puffs every 4-6 hours 8. Ativan 1 mg Oral tab 1 tab 2 times per day 9. Activella 1-0.5 mg oral tab 1 tab once daily 10. Cozaar 100 mg Oral tab 1 tab once daily 11. Arielle-Roby Rx 1-60-300 mg-mg-mcg oral tab daily - PMHx: COPD; Hypertension; Hypothyroidism; Polycystic Kidney Disease; Renal Failure with Dialysis; - PSHx: Dialysis Graft Construction, Arm; Hip Arthroplasty, Right; - The history from nurses notes was reviewed: and I agree with what is documented. - Social history: Smoking status: Patient uses tobacco products, current every day smoker. No barriers to communication noted, The patient speaks fluent Cymraes, Speaks appropriately for age. - : The pt / caregiver states he / she is not on anticoagulants. Home medication list is obtained from the patient, family members. - Exposure Risk Screening:: None identified. - Immunization history:: All immunizations up-to-date. - Family history: Not pertinent. - Social history:: the patient is a former smoker, the patient does not drink alcohol. Screenin:02 Screening information is obtained from the patient. Fall risk: At risk due to weakness. ck1 The following interventions are performed due to a positive Fall Risk Screen: Fall Risk is added to Special Handling on the patient Summary Screen. A Fall Risk Bracelet was applied to the patient. Side Rails are placed in the up position. A Call [place] is given with instruction to call for help when getting out of bed. Fall Alert bracelet is placed on the patient. Assistance ADL's: requires no assistance with activities of daily living. Abuse/DV Screen: The patient / caregiver reports he/she is: not in a situation that causes fear, pain or injury. Nutritional screening: No deficits noted. Advance Directives: Currently, there is no health care proxy. home support is adequate. Assessment: 16:39 General: Appears distressed, Behavior is cooperative. Cardiovascular: Heart tones S1 S2 mb9 present Rhythm is sinus rhythm. Respiratory: Airway is patent Respiratory effort is even, labored, Breath sounds with rhonchi bilaterally. GI: Abdomen is distended, pt states, "My belly always looks like that.". Abd is soft Abd is non tender. 17:28 General: Appears in no apparent distress, Behavior is appropriate for age, cooperative. ck1 Pain: Denies pain. Neurological: Level of Consciousness is awake, alert, obeys commands, Oriented to person, place, time. Cardiovascular: Rhythm is sinus rhythm. Respiratory: Airway is patent Respiratory effort is even, labored, Breath sounds with rhonchi bilaterally. Derm: Skin is fragile, is thin, Skin is pink, warm & dry. 18:30 General: Appears in no apparent distress, Behavior is appropriate for age, cooperative. ck1 Pain: Denies pain. Neurological: Level of Consciousness is awake, alert, obeys commands, Oriented to person, place, time. Respiratory: Respiratory effort is unlabored. GI: No deficits noted. Derm: Skin is fragile, is thin, Skin is pink, warm & dry. 22:05 General: Patient resting comfortably. Offers no complaints at present time. Awaiting cf2 arrival of daughter in law for discharge . 22:27 Adult Sepsis Screening: The patient does not have new or worsening altered mentation. cf2 Patient's respiratory rate is less than 22. Systolic blood pressure is greater than 100. Patient has a qSOFA score of 0- Negative Sepsis Screen. General: Patient states "feels ok to go home". Alert and oriented ambulating around room without difficulties . Vital Signs: 16:20 BP 177 / 94; Pulse 82; Resp 20 S; Temp 98.0; Pulse Ox 95% on R/A; Weight 44.91 kg (R); dd6 Height 5 ft. 2 in. (157.48 cm) (R); 17:39 BP 166 / 86 (auto/); ck1 17:40 Pulse 68 MON; Pulse Ox 89% ; ck1 17:50 BP 152 / 86 (auto/); ck1 17:51 Pulse 66 MON; Pulse Ox 96% ; ck1 18:05 BP 160 / 84 (auto/); ck1 18:06 Pulse 70 MON; Pulse Ox 97% ; ck1 18:20 Pulse 72 MON; Pulse Ox 97% ; ck1 18:20 BP 163 / 86 (auto/); ck1 19:45 BP 143 / 82; Pulse 84; Resp 82; Temp 98.0; Pulse Ox 94% on R/A; Pain 0/10; cf2 22:27 BP 132 / 78; Pulse 82; Resp 16; Temp 98.2; Pulse Ox 92% on R/A; Pain 0/10; cf2 16:20 Body Mass Index 18.11 (44.91 kg, 157.48 cm) dd6 Vitals: 16:20 Log In Time: December 14, 2016 at 16:18. dd6 16:23 RN notified that patient meets Red Flag criteria. dd6 ED Course: 16:20 Patient visited by Kadeem Arzate PCA. dd6 16:20 Sarah Pickard is Private Physician. dd6 16:20 Patient moved to Waiting dd6 16:22 Patient moved to Pre RCE dd6 16:28 Faiza Nixon,RN is Primary Nurse. kr3 16:28 Patient moved to 4 kr3 16:29 Triage Initiated kr3 16:35 Julio Grace MD is Attending Physician. pc 16:50 Patient visited by Julio Grace MD. pc 17:00 Patient visited by Roberto Carlos Cintron. jml1 17:00 EKG done. (by ED staff). Reviewed by Julio Grace MD. jml1 17:02 The patient / caregiver is instructed regarding the plan of care and ED course. ck1 17:02 -Blood Culture Sent. ck1 17:02 Basic Metabolic Profile Sent. ck1 17:02 CBC with Diff Sent. ck1 17:02 Cardiac Injury Profile Sent. ck1 17:02 Troponin Sent. ck1 17:02 Inserted saline lock: 20 gauge in right antecubital area and blood collected. The ck1 patient tolerated the procedure well. 17:29 No procedures done that require assistance. ck1 17:37 Chest, 1 View Returned. EDMS 17:48 Patient visited by Faiza Nixon,ERROL. ck1 18:03 Michaela Lopez is Hospitalizing Provider. pc 18:14 Patient moved to Admit Hold tmm1 18:32 [facility] Payment Agreement was scanned into [employer] and attached to record. gb 18:55 Primary Nurse role handed off by Faiza Nixon,ERROL ck1 19:04 Patient visited by Hema Lagos PCA. kb5 19:04 Nimisha Bradley,ERROL is Primary Nurse. cf2 19:05 Patient visited by Nimisha Bradley,ERROL. cf2 20:23 Chest, 1 View Returned. EDMS 20:29 Patient visited by Nimisha Bradley RN. cf2 20:45 Patient visited by Nimisha Bradley,ERROL. cf2 21:17 EKG-ADULT Returned. EDMS 21:28 Ambulated patient with SPO2 monitor, pt stayed between 90 and 92%, dipped as low as kb5 89%. Doctor is aware. 21:30 Patient visited by Hema Lagos PCA. kb5 21:42 Sarah Pickard is Referral Physician. pc 21:42 Asa Mena is Referral Physician. pc 22:05 Patient visited by Nimisha Bradley,ERROL. cf2 22:10 Patient visited by Nimisha Bradley,ERROL. cf2 22:14 Patient visited by Nimisha Bradley RN. cf2 22:27 Patient visited by Nimisha Bradley,ERROL. cf2 22:29 Patient has correct armband on for positive identification. Placed in gown. Bed in low cf2 position. Call light in reach. Side rails up X 1. Side rails up X2. electronic device monitor on. Pulse ox on. NIBP on. Door closed. Noise minimized. Visitors limited. Lights dimmed. Moved to private room. Diet tray ordered. Verbal reassurance given. Warm blanket given. Pillow given. Head of bed elevated. Administered Medications: 17:02 Drug: Solu-MEDROL 125 mg [Solu-Medrol 500 mg intravenous solution (125 mg)] Route: IVP; mb9 Site: right antecubital; 17:18 Drug: Albuterol-Ipratropium 1 neb [ipratropium-albuterol 0.5 mg-3 mg(2.5 mg base)/3 mL rs5 nebulization soln (1 neb)] Route: Nebulizer; 17:18 Drug: Albuterol-Ipratropium 1 neb [ipratropium-albuterol 0.5 mg-3 mg(2.5 mg base)/3 mL rs5 nebulization soln (1 neb)] Route: Nebulizer; 17:19 Drug: Albuterol-Ipratropium 1 neb [ipratropium-albuterol 0.5 mg-3 mg(2.5 mg base)/3 mL rs5 nebulization soln (1 neb)] Route: Nebulizer; 22:05 Drug: predniSONE 40 mg Route: PO; cf2 22:11 Follow up: Response: No significant change. cf2 22:05 Drug: azithromycin 500 mg [azithromycin 250 mg tablet (2 tabs)] Route: PO; cf2 22:11 Follow up: Response: No significant change. cf2 RT: 17:19 Initial Med Neb Given as ordered Subsequent Med Neb Given as ordered Patient was rs5 reinforced on procedure Patient tolerated procedure well without adverse effect. Respiratory: Respiratory effort is even, unlabored, Respiratory pattern is regular symmetrical. Order Results: Lab Order: Basic Metabolic Profile; SPEC'M 12/14/16 16:59 Test: GLUCOSE, FASTING; Value: 101; Range: 80-110; Units: MG/DL; Status: F Test: BLOOD UREA NITROGEN; Value: 25; Range: 7-18; Abnormal: Above high normal; Units: MG/DL; Status: F Test: CREATININE FOR GFR; Value: 4.49; Range: 0.55-1.02; Abnormal: Above high normal; Units: MG/DL; Status: F Test: GLOMERULAR FILTRATION RATE; Value: 10.4; Range: >45; Abnormal: Below low normal; Status: F Test: SODIUM LEVEL; Value: 142; Range: 136-145; Units: MEQ/L; Status: F Test: POTASSIUM SERUM; Value: 3.9; Range: 3.5-5.1; Units: MEQ/L; Status: F Test: CHLORIDE LEVEL; Value: 103; Range: 98-107; Units: MEQ/L; Status: F Test: CARBON DIOXIDE LEVEL; Value: 29; Range: 21-32; Units: MEQ/L; Status: F Test: ANION GAP; Value: 10; Range: 8-16; Units: MEQ/L; Status: F Test: CALCIUM LEVEL; Value: 8.5; Range: 8.8-10.2; Abnormal: Below low normal; Units: MG/DL; Status: F Test Note: ; Units are mL/min/1.73 m2 Chronic Kidney Disease Staging per NKF: Stage I & II GFR >=60 Normal to Mildly Decreased Stage III GFR 30-59 Moderately Decreased Stage IV GFR 15-29 Severely Decreased Stage V GFR <15 Very Little GFR Left ESRD GFR <15 on RECONCILIATION MANAGER Lab Order: CBC with Diff; SPEC'M 12/14/16 16:59 Test: WHITE BLOOD COUNT; Value: 5.4; Range: 4.0-10.0; Units: K/mm3; Status: F Test: RED BLOOD COUNT; Value: 3.82; Range: 4.00-5.40; Abnormal: Below low normal; Units: M/mm3; Status: F Test: HEMOGLOBIN; Value: 11.6; Range: 12.0-16.0; Abnormal: Below low normal; Units: g/dl; Status: F Test: HEMATOCRIT; Value: 36.0; Range: 36.0-47.0; Units: %; Status: F Test: MEAN CORPUSCULAR VOLUME; Value: 94.1; Range: 80.0-96.0; Units: fl; Status: F Test: MEAN CORPUSCULAR HEMOGLOBIN; Value: 30.2; Range: 27.0-33.0; Units: pg; Status: F Test: MEAN CORPUSCULAR HGB CONC; Value: 32.1; Range: 32.0-36.5; Units: g/dl; Status: F Test: RED CELL DISTRIBUTION WIDTH; Value: 17.8; Range: 11.5-14.5; Abnormal: Above high normal; Units: %; Status: F Test: PLATELET COUNT, AUTOMATED; Value: 121; Range: 150-450; Abnormal: Below low normal; Units: k/mm3; Status: F Test: NEUTROPHILS %; Value: 74.9; Range: 36.0-66.0; Abnormal: Above high normal; Units: %; Status: F Test: LYMPH %; Value: 14.0; Range: 24.0-44.0; Abnormal: Below low normal; Units: %; Status: F Test: MONO %; Value: 4.9; Range: 0.0-5.0; Units: %; Status: F Test: EOS %; Value: 3.5; Range: 0.0-3.0; Abnormal: Above high normal; Units: %; Status: F Test: BASO %; Value: 0.7; Range: 0.0-1.0; Units: %; Status: F Test: LARGE UNSTAINED CELL %; Value: 2.0; Range: 0.0-4.0; Units: %; Status: F Test: NEUTROPHILS #; Value: 4.1; Range: 1.8-7.7; Units: K/mm3; Status: F Test: LYMPH #; Value: 0.8; Range: 1.5-4.5; Abnormal: Below low normal; Units: K/mm3; Status: F Test: MONO #; Value: 0.3; Range: 0.0-0.8; Units: K/mm3; Status: F Test: EOS #; Value: 0.2; Range: 0.0-0.50; Units: K/mm3; Status: F Test: BASO #; Value: 0.0; Range: 0.0-0.2; Units: K/mm3; Status: F Test: LARGE UNSTAINED CELL #; Value: 0.1; Range: 0.0-0.4; Units: K/mm3; Status: F Lab Order: Cardiac Injury Profile; [facility] 12/14/16 16:59 Test: CPK CREATINE PHOSPHOKINASE; Value: 43; Range: 26-192; Units: U/L; Status: F Test: CK-MB VALUE MASS; Value: 2.2; Range: 0.0-3.6; Units: NG/ML; Status: F Test: MB/CK RELATIVE INDEX; Value: 5.11; Range: < OR =4; Abnormal: Above high normal; Status: F Test Note: ; DIAGNOSIS CRITERIA MMB ng/ml Relative Index (RI) NON-AMI < or = 5 N/A MONTOYA ZONE > 5 < or = 4 AMI > 5 > 4 Lab Order: Troponin; [facility] 12/14/16 16:59 Test: TROPONIN I; Value: 0.02; Range: < 0.10; Units: NG/ML; Status: F Test Note: ; Troponin I Reference Interval for [employer] LOCI: 99th Percentile= 0.00-0.045 ng/ml Risk Stratification: <= 0.10 ng/ml Decreased Risk for Adverse Clinical Events. 0.10-1.50 ng/ml Increased Risk for Adverse Clinical Events. Evaluation of additional criterion and/or repeat testing in 2-6 hours is suggested to rule out myocardial damage. >= 1.50 ng/ml Indicative of Myocardial Injury. Lab Order: ARTERIAL BLOOD GAS; [facility] 12/14/16 18:47 Test: ABG pH (ARTERIAL); Value: 7.468; Range: 7.350-7.450; Abnormal: Above high normal; Units: UNITS; Status: F Test: ABG PARTIAL PRESSURE CO2; Value: 35.2; Range: 35.0-45.0; Units: mmHg; Status: F Test: ABG PARTIAL PRESSURE O2; Value: 77.4; Range: 75.0-100.0; Units: mmHg; Status: F Test: ABG TOTAL CO2; Value: 26.0; Range: 23.0-31.0; Units: MEQ/L; Status: F Test: ABG HCO3; Value: 24.9; Range: 22.0-26.0; Units: MEQ/L; Status: F Test: ABG BASE EXCESS; Value: 1.5; Range: -2.0-2.0; Status: F Test: ABG STANDARD HCO3; Value: 25.8; Range: 22.0-26.0; Units: MEQ/L; Status: F Test: ABG O2 SATURATION; Value: 96.4; Range: 95.0-99.0; Units: %; Status: F Lab Order: BRAIN NATIURETIC PEPTIDE; SPEC'M 12/14/16 16:59 Test: BRAIN NATRIURETIC PEPTIDE; Value: 1130; Range: <100; Abnormal: Above high normal; Units: PG/ML; Status: F Radiology Order: Chest, 1 View Test: Chest, 1 View REASON FOR EXAMINATION: Shortness of Breath; SINGLE VIEW CHEST:; ; Single AP view of the chest is performed. There is no acute infiltrate or; pulmonary edema. Heart is normal in size. Mediastinal silhouette is unchanged; since prior exam of 11/24/2016.; ; IMPRESSION:; ; No acute pulmonary disease.; ; ; Signed by; Cristopher Montoya MD 12/14/2016 07:59 P; Radiology Order: EKG-ADULT Test: EKG-ADULT REASON FOR EXAMINATION: Shortness of Breath; Stationary ECG Study; [facility] - ED; ; Test Date: 2016-12-14; Pat Name: CHIQUITA BLACKMON Department:; Room: -; Gender: F [employer] Oil Checker: TACO; : 1950 Requested By: Julio Chafe A.; Order Number: [id number] Reading MD: Jennifer Mendoza; Measurements; Intervals [place]; Rate: 67 P: 78; PA: 146 QRS: -38; QRSD: 93 T: -55; QT: 422; QTc: 446; Interpretive Statements; SINUS RHYTHM WITH OCCASIONAL SUPRAVENTRICULAR PREMATURE COMPLEXES; MARKED LEFT AXIS DEVIATION; NONSPECIFIC T-WAVE ABNORMALITY; LOW VOLTAGE LIMB; DECREASED RATE 11/24/16; Electronically Signed On 12-14-2016 20:29:39 EST by Jennifer Mendoza; Outcome: 18:03 Decision to Hospitalize by Provider. pc 21:42 Discharge ordered by Provider. pc 22:30 Discharge Assessment: Patient awake, alert and oriented x 3. No cognitive and/or cf2 functional deficits noted. Patient verbalized understanding of disposition instructions. Patient awake and alert. Oriented to person, place and time. patient administered narcotics - no. The following High Risk Discharge criteria are identified: None. Condition: good Condition: stable. CT Study completed. Property :Personal belongings accompany Pt. 22:30 Patient left the ED. cf2 Signatures: Dispatcher [employer] EDMS Julio Grace MD MD pc Samara Pettit, Reg Reg gb Faiza Nixon,RN RN ck1 Trish Newby,RN RN kr3 Hema Lagos, SOUP PERSON SOUP PERSON kb5 Kadeem Arzate, SOUP PERSON SOUP PERSON dd6 Roberto Carlos Cintron jml1 Aramis Pfeiffer,RT RT rs5 Karis Andreina, SOUP PERSON SOUP PERSON tmm1 Rohit Maloney,RN RN mb9 Nimisha Bradley,RN RN cf2 Corrections: (The following items were deleted from the chart) 16:42 16:39 GI: Abdomen is distended, pt states, "My belly always looks like that.". mb9 mb9 MTDD
--- NOTE | 2016-12-16 06:41 | ECGEPIP ---
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
--- NOTE | 2016-12-16 23:32 | EDDOCDS ---
Nurse's Notes [facility] Name: Chiquita Blackmon Age: 66 yrs Sex: Female : 1950 Arrival Date: 12/14/2016 Time: 16:19 Bed Admit Hold Private MD: Sarah Pickard Diagnosis: Chronic obstructive pulmonary disease with (acute) exacerbation-resolved;End stage renal disease Presentation: 12/14 16:28 Presenting complaint: Patient states: DIFFICULTY BREATHING FOR 2 days. Using inhalers kr3 with no relief. Adult Sepsis Screening: The patient does not have new or worsening altered mentation. Patient's respiratory rate is less than 22. Systolic blood pressure is greater than 100. Patient has a qSOFA score of 0- Negative Sepsis Screen. Suicide/Homicide risk assessment- the patient denies having any suicidal and/or homicidal ideations and does not present with any other emotional, behavioral or mental health complaints. Status: Patient is not a supervisor self service store or dependent. Transition of care: patient was not received from another setting of care. 16:28 Acuity: THIEN Level 3 kr3 16:28 Method Of Arrival: Wheelchair kr3 16:34 Red Flag criteria, patient assessed and taken directly to a bed. kr3 Triage Assessment: 16:32 General: Appears comfortable, Behavior is appropriate for age, cooperative. Pain: kr3 Denies pain. The patient is triaged at the bedside. See Assessment in Nurses Notes section of ED record. Neurological: Level of Consciousness is awake, alert. Respiratory: Onset: The symptoms/episode began/occurred 2 days ago, Airway is patent Respiratory effort is even, labored, Reports shortness of breath on exertion cough that is. Derm: Skin is normal. Historical: - Allergies: Codeine Sulfate (Upset stomach); Lisinopril (angioedema to tongue); - Home Meds: 1. Tenormin 25 mg oral tab once daily 2. minoxidil 2.5 mg Oral tab once daily 3. Lexapro 10 mg Oral tab 1 tab once daily 4. levothyroxine 137 mcg oral cap once daily 5. Atrovent 18 mcg/actuation Inhl aero 2 puff four times a day 6. aspirin 81 mg Oral TbEC 1 tab once daily 7. albuterol sulfate 90 mcg/actuation Inhl aepb 2 puffs every 4-6 hours 8. Ativan 1 mg Oral tab 1 tab 2 times per day 9. Activella 1-0.5 mg oral tab 1 tab once daily 10. Cozaar 100 mg Oral tab 1 tab once daily 11. Arielle-Roby Rx 1-60-300 mg-mg-mcg oral tab daily - PMHx: COPD; Hypertension; Hypothyroidism; Polycystic Kidney Disease; Renal Failure with Dialysis; - PSHx: Dialysis Graft Construction, Arm; Hip Arthroplasty, Right; - The history from nurses notes was reviewed: and I agree with what is documented. - Social history: Smoking status: Patient uses tobacco products, current every day smoker. No barriers to communication noted, The patient speaks fluent Welsh, Speaks appropriately for age. - : The pt / caregiver states he / she is not on anticoagulants. Home medication list is obtained from the patient, family members. - Exposure Risk Screening:: None identified. - Immunization history:: All immunizations up-to-date. - Family history: Not pertinent. - Social history:: the patient is a former smoker, the patient does not drink alcohol. Screenin:02 Screening information is obtained from the patient. Fall risk: At risk due to weakness. ck1 The following interventions are performed due to a positive Fall Risk Screen: Fall Risk is added to Special Handling on the patient Summary Screen. A Fall Risk Bracelet was applied to the patient. Side Rails are placed in the up position. A Call [place] is given with instruction to call for help when getting out of bed. Fall Alert bracelet is placed on the patient. Assistance ADL's: requires no assistance with activities of daily living. Abuse/DV Screen: The patient / caregiver reports he/she is: not in a situation that causes fear, pain or injury. Nutritional screening: No deficits noted. Advance Directives: Currently, there is no health care proxy. home support is adequate. Assessment: 16:39 General: Appears distressed, Behavior is cooperative. Cardiovascular: Heart tones S1 S2 mb9 present Rhythm is sinus rhythm. Respiratory: Airway is patent Respiratory effort is even, labored, Breath sounds with rhonchi bilaterally. GI: Abdomen is distended, pt states, "My belly always looks like that.". Abd is soft Abd is non tender. 17:28 General: Appears in no apparent distress, Behavior is appropriate for age, cooperative. ck1 Pain: Denies pain. Neurological: Level of Consciousness is awake, alert, obeys commands, Oriented to person, place, time. Cardiovascular: Rhythm is sinus rhythm. Respiratory: Airway is patent Respiratory effort is even, labored, Breath sounds with rhonchi bilaterally. Derm: Skin is fragile, is thin, Skin is pink, warm & dry. 18:30 General: Appears in no apparent distress, Behavior is appropriate for age, cooperative. ck1 Pain: Denies pain. Neurological: Level of Consciousness is awake, alert, obeys commands, Oriented to person, place, time. Respiratory: Respiratory effort is unlabored. GI: No deficits noted. Derm: Skin is fragile, is thin, Skin is pink, warm & dry. 22:05 General: Patient resting comfortably. Offers no complaints at present time. Awaiting cf2 arrival of daughter in law for discharge . 22:27 Adult Sepsis Screening: The patient does not have new or worsening altered mentation. cf2 Patient's respiratory rate is less than 22. Systolic blood pressure is greater than 100. Patient has a qSOFA score of 0- Negative Sepsis Screen. General: Patient states "feels ok to go home". Alert and oriented ambulating around room without difficulties . Vital Signs: 16:20 BP 177 / 94; Pulse 82; Resp 20 S; Temp 98.0; Pulse Ox 95% on R/A; Weight 44.91 kg (R); dd6 Height 5 ft. 2 in. (157.48 cm) (R); 17:39 BP 166 / 86 (auto/); ck1 17:40 Pulse 68 MON; Pulse Ox 89% ; ck1 17:50 BP 152 / 86 (auto/); ck1 17:51 Pulse 66 MON; Pulse Ox 96% ; ck1 18:05 BP 160 / 84 (auto/); ck1 18:06 Pulse 70 MON; Pulse Ox 97% ; ck1 18:20 Pulse 72 MON; Pulse Ox 97% ; ck1 18:20 BP 163 / 86 (auto/); ck1 19:45 BP 143 / 82; Pulse 84; Resp 82; Temp 98.0; Pulse Ox 94% on R/A; Pain 0/10; cf2 22:27 BP 132 / 78; Pulse 82; Resp 16; Temp 98.2; Pulse Ox 92% on R/A; Pain 0/10; cf2 16:20 Body Mass Index 18.11 (44.91 kg, 157.48 cm) dd6 Vitals: 16:20 Log In Time: December 14, 2016 at 16:18. dd6 16:23 RN notified that patient meets Red Flag criteria. dd6 ED Course: 16:20 Patient visited by Kadeem Arzate PCA. dd6 16:20 Sarah Pickard is Private Physician. dd6 16:20 Patient moved to Waiting dd6 16:22 Patient moved to Pre RCE dd6 16:28 Faiza Nixon,RN is Primary Nurse. kr3 16:28 Patient moved to 4 kr3 16:29 Triage Initiated kr3 16:35 Julio Grace MD is Attending Physician. pc 16:50 Patient visited by Julio Grace MD. pc 17:00 Patient visited by Roberto Carlos Cintron. jml1 17:00 EKG done. (by ED staff). Reviewed by Julio Grace MD. jml1 17:02 The patient / caregiver is instructed regarding the plan of care and ED course. ck1 17:02 -Blood Culture Sent. ck1 17:02 Basic Metabolic Profile Sent. ck1 17:02 CBC with Diff Sent. ck1 17:02 Cardiac Injury Profile Sent. ck1 17:02 Troponin Sent. ck1 17:02 Inserted saline lock: 20 gauge in right antecubital area and blood collected. The ck1 patient tolerated the procedure well. 17:29 No procedures done that require assistance. ck1 17:37 Chest, 1 View Returned. EDMS 17:48 Patient visited by Faiza Nixon,ERROL. ck1 18:03 Michaela Lopez is Hospitalizing Provider. pc 18:14 Patient moved to Admit Hold tmm1 18:32 [facility] Payment Agreement was scanned into [employer] and attached to record. gb 18:55 Primary Nurse role handed off by Faiza Nixon,ERROL ck1 19:04 Patient visited by Hema Lagos PCA. kb5 19:04 Nimisha Bradley,ERROL is Primary Nurse. cf2 19:05 Patient visited by Nimisha Bradley,ERROL. cf2 20:23 Chest, 1 View Returned. EDMS 20:29 Patient visited by Nimisha Bradley,ERROL. cf2 20:45 Patient visited by Nimisha Bradley,ERROL. cf2 21:17 EKG-ADULT Returned. EDMS 21:28 Ambulated patient with SPO2 monitor, pt stayed between 90 and 92%, dipped as low as kb5 89%. Doctor is aware. 21:30 Patient visited by Hema Lagos PCA. kb5 21:42 Sarah Pickard is Referral Physician. pc 21:42 Asa Mena is Referral Physician. pc 22:05 Patient visited by Nimisha Bradley,ERROL. cf2 22:10 Patient visited by Nimisha Bradley,ERROL. cf2 22:14 Patient visited by Nimisha Bradley,ERROL. cf2 22:27 Patient visited by Nimisha Bradley,ERROL. cf2 22:29 Patient has correct armband on for positive identification. Placed in gown. Bed in low cf2 position. Call light in reach. Side rails up X 1. Side rails up X2. big data engineer on. Pulse ox on. NIBP on. Door closed. Noise minimized. Visitors limited. Lights dimmed. Moved to private room. Diet tray ordered. Verbal reassurance given. Warm blanket given. Pillow given. Head of bed elevated. 12/15 11:22 T-Sheet-- Draft Copy was scanned into [employer] and attached to record. gb 11: Trend VS was scanned into [employer] and attached to record. gb 12/16 06:53 ECG WITH READING ER PHYS Returned. EDMS Administered Medications: 12/14 17:02 Drug: Solu-MEDROL 125 mg [Solu-Medrol 500 mg intravenous solution (125 mg)] Route: IVP; mb9 Site: right antecubital; 17:18 Drug: Albuterol-Ipratropium 1 neb [ipratropium-albuterol 0.5 mg-3 mg(2.5 mg base)/3 mL rs5 nebulization soln (1 neb)] Route: Nebulizer; 17:18 Drug: Albuterol-Ipratropium 1 neb [ipratropium-albuterol 0.5 mg-3 mg(2.5 mg base)/3 mL rs5 nebulization soln (1 neb)] Route: Nebulizer; 17:19 Drug: Albuterol-Ipratropium 1 neb [ipratropium-albuterol 0.5 mg-3 mg(2.5 mg base)/3 mL rs5 nebulization soln (1 neb)] Route: Nebulizer; 22:05 Drug: predniSONE 40 mg Route: PO; cf2 22:11 Follow up: Response: No significant change. cf2 22:05 Drug: azithromycin 500 mg [azithromycin 250 mg tablet (2 tabs)] Route: PO; cf2 22:11 Follow up: Response: No significant change. cf2 Attachments: 11:22 Trend VS gb RT: 12/14 17:19 Initial Med Neb Given as ordered Subsequent Med Neb Given as ordered Patient was rs5 reinforced on procedure Patient tolerated procedure well without adverse effect. Respiratory: Respiratory effort is even, unlabored, Respiratory pattern is regular symmetrical. Order Results: Lab Order: -Blood Culture; SPEC'M 12/14/16 16:59 Test: BLOOD CULTURE; Value: No growth after 24 hours . All specimens observed; Status: F Test: BLOOD CULTURE; Value: for 5 days. Results final at that time.; Status: F Test: BLOOD CULTURE; Value: No Growth after 48 hours. All Specimens observed; Status: F Test: BLOOD CULTURE; Value: for 7 days. Results final at that time.; Status: F Lab Order: Basic Metabolic Profile; SPEC'M 12/14/16 16:59 Test: GLUCOSE, FASTING; Value: 101; Range: 80-110; Units: MG/DL; Status: F Test: BLOOD UREA NITROGEN; Value: 25; Range: 7-18; Abnormal: Above high normal; Units: MG/DL; Status: F Test: CREATININE FOR GFR; Value: 4.49; Range: 0.55-1.02; Abnormal: Above high normal; Units: MG/DL; Status: F Test: GLOMERULAR FILTRATION RATE; Value: 10.4; Range: >45; Abnormal: Below low normal; Status: F Test: SODIUM LEVEL; Value: 142; Range: 136-145; Units: MEQ/L; Status: F Test: POTASSIUM SERUM; Value: 3.9; Range: 3.5-5.1; Units: MEQ/L; Status: F Test: CHLORIDE LEVEL; Value: 103; Range: 98-107; Units: MEQ/L; Status: F Test: CARBON DIOXIDE LEVEL; Value: 29; Range: 21-32; Units: MEQ/L; Status: F Test: ANION GAP; Value: 10; Range: 8-16; Units: MEQ/L; Status: F Test: CALCIUM LEVEL; Value: 8.5; Range: 8.8-10.2; Abnormal: Below low normal; Units: MG/DL; Status: F Test Note: ; Units are mL/min/1.73 m2 Chronic Kidney Disease Staging per NKF: Stage I & II GFR >=60 Normal to Mildly Decreased Stage III GFR 30-59 Moderately Decreased Stage IV GFR 15-29 Severely Decreased Stage V GFR <15 Very Little GFR Left ESRD GFR <15 on ASSISTANT BOYS [employer] COACH Lab Order: CBC with Diff; SPEC'M 12/14/16 16:59 Test: WHITE BLOOD COUNT; Value: 5.4; Range: 4.0-10.0; Units: K/mm3; Status: F Test: RED BLOOD COUNT; Value: 3.82; Range: 4.00-5.40; Abnormal: Below low normal; Units: M/mm3; Status: F Test: HEMOGLOBIN; Value: 11.6; Range: 12.0-16.0; Abnormal: Below low normal; Units: g/dl; Status: F Test: HEMATOCRIT; Value: 36.0; Range: 36.0-47.0; Units: %; Status: F Test: MEAN CORPUSCULAR VOLUME; Value: 94.1; Range: 80.0-96.0; Units: fl; Status: F Test: MEAN CORPUSCULAR HEMOGLOBIN; Value: 30.2; Range: 27.0-33.0; Units: pg; Status: F Test: MEAN CORPUSCULAR HGB CONC; Value: 32.1; Range: 32.0-36.5; Units: g/dl; Status: F Test: RED CELL DISTRIBUTION WIDTH; Value: 17.8; Range: 11.5-14.5; Abnormal: Above high normal; Units: %; Status: F Test: PLATELET COUNT, AUTOMATED; Value: 121; Range: 150-450; Abnormal: Below low normal; Units: k/mm3; Status: F Test: NEUTROPHILS %; Value: 74.9; Range: 36.0-66.0; Abnormal: Above high normal; Units: %; Status: F Test: LYMPH %; Value: 14.0; Range: 24.0-44.0; Abnormal: Below low normal; Units: %; Status: F Test: MONO %; Value: 4.9; Range: 0.0-5.0; Units: %; Status: F Test: EOS %; Value: 3.5; Range: 0.0-3.0; Abnormal: Above high normal; Units: %; Status: F Test: BASO %; Value: 0.7; Range: 0.0-1.0; Units: %; Status: F Test: LARGE UNSTAINED CELL %; Value: 2.0; Range: 0.0-4.0; Units: %; Status: F Test: NEUTROPHILS #; Value: 4.1; Range: 1.8-7.7; Units: K/mm3; Status: F Test: LYMPH #; Value: 0.8; Range: 1.5-4.5; Abnormal: Below low normal; Units: K/mm3; Status: F Test: MONO #; Value: 0.3; Range: 0.0-0.8; Units: K/mm3; Status: F Test: EOS #; Value: 0.2; Range: 0.0-0.50; Units: K/mm3; Status: F Test: BASO #; Value: 0.0; Range: 0.0-0.2; Units: K/mm3; Status: F Test: LARGE UNSTAINED CELL #; Value: 0.1; Range: 0.0-0.4; Units: K/mm3; Status: F Lab Order: Cardiac Injury Profile; SPEC'M 12/14/16 16:59 Test: CPK CREATINE PHOSPHOKINASE; Value: 43; Range: 26-192; Units: U/L; Status: F Test: CK-MB VALUE MASS; Value: 2.2; Range: 0.0-3.6; Units: NG/ML; Status: F Test: MB/CK RELATIVE INDEX; Value: 5.11; Range: < OR =4; Abnormal: Above high normal; Status: F Test Note: ; DIAGNOSIS CRITERIA MMB ng/ml Relative Index (RI) NON-AMI < or = 5 N/A MONTOYA ZONE > 5 < or = 4 AMI > 5 > 4 Lab Order: Troponin; [facility] 12/14/16 16:59 Test: TROPONIN I; Value: 0.02; Range: < 0.10; Units: NG/ML; Status: F Test Note: ; Troponin I Reference Interval for [facility] LOCI: 99th Percentile= 0.00-0.045 ng/ml Risk Stratification: <= 0.10 ng/ml Decreased Risk for Adverse Clinical Events. 0.10-1.50 ng/ml Increased Risk for Adverse Clinical Events. Evaluation of additional criterion and/or repeat testing in 2-6 hours is suggested to rule out myocardial damage. >= 1.50 ng/ml Indicative of Myocardial Injury. Lab Order: BLOOD CULTURES; [facility] 12/14/16 17:15 Test: BLOOD CULTURE; Value: No growth after 24 hours . All specimens observed; Status: F Test: BLOOD CULTURE; Value: for 5 days. Results final at that time.; Status: F Test: BLOOD CULTURE; Value: No Growth after 48 hours. All Specimens observed; Status: F Test: BLOOD CULTURE; Value: for 7 days. Results final at that time.; Status: F Lab Order: ARTERIAL BLOOD GAS; [facility] 12/14/16 18:47 Test: ABG pH (ARTERIAL); Value: 7.468; Range: 7.350-7.450; Abnormal: Above high normal; Units: UNITS; Status: F Test: ABG PARTIAL PRESSURE CO2; Value: 35.2; Range: 35.0-45.0; Units: mmHg; Status: F Test: ABG PARTIAL PRESSURE O2; Value: 77.4; Range: 75.0-100.0; Units: mmHg; Status: F Test: ABG TOTAL CO2; Value: 26.0; Range: 23.0-31.0; Units: MEQ/L; Status: F Test: ABG HCO3; Value: 24.9; Range: 22.0-26.0; Units: MEQ/L; Status: F Test: ABG BASE EXCESS; Value: 1.5; Range: -2.0-2.0; Status: F Test: ABG STANDARD HCO3; Value: 25.8; Range: 22.0-26.0; Units: MEQ/L; Status: F Test: ABG O2 SATURATION; Value: 96.4; Range: 95.0-99.0; Units: %; Status: F Lab Order: BRAIN NATIURETIC PEPTIDE; SPEC'M 12/14/16 16:59 Test: BRAIN NATRIURETIC PEPTIDE; Value: 1130; Range: <100; Abnormal: Above high normal; Units: PG/ML; Status: F Radiology Order: Chest, 1 View Test: Chest, 1 View REASON FOR EXAMINATION: Shortness of Breath; SINGLE VIEW CHEST:; ; Single AP view of the chest is performed. There is no acute infiltrate or; pulmonary edema. Heart is normal in size. Mediastinal silhouette is unchanged; since prior exam of 11/24/2016.; ; IMPRESSION:; ; No acute pulmonary disease.; ; ; Signed by; Cristopher Montoya MD 12/14/2016 07:59 P; Radiology Order: EKG-ADULT Test: EKG-ADULT REASON FOR EXAMINATION: Shortness of Breath; Stationary ECG Study; [facility] ED; ; Test Date: 2016-12-14; Pat Name: CHIQUITAMAULIK BLACKMON Department:; Room: -; Gender: F Cab Driver: TACO; : 1950 Requested By: Julio Lucero; Order Number: [id number] Reading MD: Jennifer Mendoza; Measurements; Intervals [place]; Rate: 67 P: 78; PA: 146 QRS: -38; QRSD: 93 T: -55; QT: 422; QTc: 446; Interpretive Statements; SINUS RHYTHM WITH OCCASIONAL SUPRAVENTRICULAR PREMATURE COMPLEXES; MARKED LEFT AXIS DEVIATION; NONSPECIFIC T-WAVE ABNORMALITY; LOW VOLTAGE LIMB; DECREASED RATE 11/24/16; Electronically Signed On 12-14-2016 20:29:39 EST by Jennifer Mendoza; Radiology Order: ECG WITH READING ER PHYS Test: ECG WITH READING ER PHYS REASON FOR EXAMINATION: BREATHING DIFFICULTY; Stationary ECG Study; [facility] ED; ; Test Date: 2016-12-14; Pat Name: CHIQUITA BLACKMON Department:; Room: -; Gender: F Cab Driver: HECTOR; : 1950 Requested By: Julio Lucero; Order Number: [id number] Reading MD: Jennifer Mendoza; Measurements; Intervals [place]; Rate: 68 P: 85; PA: 145 QRS: -45; QRSD: 78 T: 256; QT: 430; QTc: 460; Interpretive Statements; SINUS RHYTHM; LEFT ANTERIOR FASCICULAR BLOCK; PRWP; LOW VOLTAGE LIMB; NSTTW ABNORMALITY; SIMILAR 12/14/16; Electronically Signed On 12-16-2016 6:41:31 EST by Jennifer Mendoza; Outcome: 18:03 Decision to Hospitalize by Provider. pc 21:42 Discharge ordered by Provider. pc 22:30 Discharge Assessment: Patient awake, alert and oriented x 3. No cognitive and/or cf2 functional deficits noted. Patient verbalized understanding of disposition instructions. Patient awake and alert. Oriented to person, place and time. patient administered narcotics - no. The following High Risk Discharge criteria are identified: None. Condition: good Condition: stable. CT Study completed. Property :Personal belongings accompany Pt. 22:30 Patient left the ED. cf2 Signatures: Dispatcher [employer] EDMS Julio Grace MD MD pc Samara Pettit, Reg Reg gb Faiza Nixon,RN RN ck1 Trish Newby,RN RN kr3 Hema Lagos, TRUCKMAN TRUCKMAN kb5 Kadeem Arzate, TRUCKMAN TRUCKMAN dd6 Roberto Carlos Cintron jml1 Aramis Pfeiffer,RT RT rs5 Andreina Dyson, TRUCKMAN TRUCKMAN tmm1 Rohit Maloney,RN RN mb9 Nimisha Bradley,RN RN cf2 Corrections: (The following items were deleted from the chart) 16:42 16:39 GI: Abdomen is distended, pt states, "My belly always looks like that.". mb9 mb9 Chart Complete MTDD
--- NOTE | 2016-12-16 23:32 | EDDOCDS ---
Physician Documentation [facility] Name: Karina Blackmon Age: 66 yrs Sex: Female : 1950 Arrival Date: 12/14/2016 Time: 16:19 Bed Admit Hold Private MD: Sarah Pickard Disposition: 12/14 18:01 Critical Care:. pc Disposition: 12/14/16 21:42 Discharged to Home/Self Care. Impression: Chronic obstructive pulmonary disease with (acute) exacerbation - resolved, End stage renal disease. - Condition is Stable. - Discharge Instructions: Chronic Obstructive Pulmonary Disease. - Prescriptions for Zithromax Z- Stoney 250 mg Oral Tablet - take 2 tablet by ORAL route once daily for 3 days; 6 tablet. Prednisone 10 mg Oral Tablet - take 1 tablet by ORAL route as directed Day1-4: 4 po, day5-7: 3 po, day8-10: 2 po, [id number] po; 33 tablet. - Medication Reconciliation, Local Pharmacy Hours form. - Follow up: Sarah Pickard; When: Call to arrange an appointment; Reason: Recheck today's complaints, Continuance of care. Follow up: Asa Mena; When: As previously arranged; Reason: Continuance of care. - Problem is an acute exacerbation. - Symptoms have improved. HPI: 16:54 This 66 yrs old Female presents to ER via Wheelchair with complaints of pc Breathing Difficulty. 16:54 The history is obtained from the patient, the patient's family/friend. The patient pc presents with shortness of breath, with a prior history of COPD. The symptoms began gradually 2 days ago. The symptoms are continuous, and are unchanged since they started. There were no precipitating events that led to the current complaints. The patient has shortness of breath at rest, with light activity. At their worst, the symptoms were moderate. In the emergency department, the symptoms are unchanged. The patient's shortness of breath is aggravated by exertion, coughing, is alleviated by nothing. The patient's dyspnea was accompanied with no other symptoms. The patient has experienced similar episodes in the past, chronically. The patient has been recently been admitted at [facility], was discharged a couple of weeks ago, for similar complaints. Historical: - Allergies: Codeine Sulfate (Upset stomach); Lisinopril (angioedema to tongue); - Home Meds: 1. Tenormin 25 mg oral tab once daily 2. minoxidil 2.5 mg Oral tab once daily 3. Lexapro 10 mg Oral tab 1 tab once daily 4. levothyroxine 137 mcg oral cap once daily 5. Atrovent 18 mcg/actuation Inhl aero 2 puff four times a day 6. aspirin 81 mg Oral TbEC 1 tab once daily 7. albuterol sulfate 90 mcg/actuation Inhl aepb 2 puffs every 4-6 hours 8. Ativan 1 mg Oral tab 1 tab 2 times per day 9. Activella 1-0.5 mg oral tab 1 tab once daily 10. Cozaar 100 mg Oral tab 1 tab once daily 11. Arielle-Roby Rx 1-60-300 mg-mg-mcg oral tab daily - PMHx: COPD; Hypertension; Hypothyroidism; Polycystic Kidney Disease; Renal Failure with Dialysis; - PSHx: Dialysis Graft Construction, Arm; Hip Arthroplasty, Right; - The history from nurses notes was reviewed: and I agree with what is documented. - Social history: Smoking status: Patient uses tobacco products, current every day smoker. No barriers to communication noted, The patient speaks fluent Belarusian, Speaks appropriately for age. - : The pt / caregiver states he / she is not on anticoagulants. Home medication list is obtained from the patient, family members. - Exposure Risk Screening:: None identified. - Immunization history:: All immunizations up-to-date. - Family history: Not pertinent. - Social history:: the patient is a former smoker, the patient does not drink alcohol. ROS: 16:54 All systems are negative except as listed. The gastrointestinal and genitourinary pc components are also addressed in the HPI. Exam: 16:54 General Appearance: alert, the patient is in mild distress. pc 16:54 EENT: ears, nose and throat normal, pharynx normal, mucous membranes moist pale conjunctiva. 16:54 Neck: normal inspection. 16:54 Respiratory: no pleuritic chest pain, speaks in full sentences, the patient is in mild respiratory distress, auscultation reveals wheezes, diffusely, decreased air entry noted throughout 16:54 Cardiovascular: normal heart rate, normal rhythm, no jugular venous distension appreciated, no murmurs, no gallop, no friction rub. 16:54 Abdomen: non-tender, non-distended, no organomegaly, no ascites. 16:54 Skin: normal color, warm, dry. 16:54 Extremities: non-tender, normal range of motion of all joints, no pedal edema. 16:54 Neuro: alert, oriented to person, place and time, cranial nerves normal as tested, no motor deficits, no sensory deficits. 16:54 Psych: normal mood. Vital Signs: 16:20 BP 177 / 94; Pulse 82; Resp 20 S; Temp 98.0; Pulse Ox 95% on R/A; Weight 44.91 kg / dd6 99.01 lbs (R); Height 5 ft. 2 in. (157.48 cm) (R); 17:39 BP 166 / 86 (auto/); ck1 17:40 Pulse 68 MON; Pulse Ox 89% ; ck1 17:50 BP 152 / 86 (auto/); ck1 17:51 Pulse 66 MON; Pulse Ox 96% ; ck1 18:05 BP 160 / 84 (auto/); ck1 18:06 Pulse 70 MON; Pulse Ox 97% ; ck1 18:20 Pulse 72 MON; Pulse Ox 97% ; ck1 18:20 BP 163 / 86 (auto/); ck1 19:45 BP 143 / 82; Pulse 84; Resp 82; Temp 98.0; Pulse Ox 94% on R/A; Pain 0/10; cf2 22:27 BP 132 / 78; Pulse 82; Resp 16; Temp 98.2; Pulse Ox 92% on R/A; Pain 0/10; cf2 16:20 Body Mass Index 18.11 (44.91 kg, 157.48 cm) dd6 MDM: 16:51 Solu-MEDROL 125 mg IVP once ordered. pc 16:51 -Blood Culture (Adults Only), peripheral from different site, or from device/port/PICC pc etc. if present ordered. 16:51 Front Office Specialist/Pulse Ox/q 15 min VS ordered. pc 16:51 IV Saline Lock ordered. pc 16:51 Rhythm Strip to chart ordered. pc 16:51 Albuterol-Ipratropium 1 neb Nebulizer every 20 minutes x3 ordered. pc 16:51 Call Respiratory ordered. pc 16:53 Chest, 1 View Ordered. EDMS 16:53 -Blood Culture Ordered. EDMS 16:53 Basic Metabolic Profile Ordered. EDMS 16:53 CBC with Diff Ordered. EDMS 16:53 Cardiac Injury Profile Ordered. EDMS 16:53 Troponin Ordered. EDMS 16:53 ECG WITH READING ER PHYS+CARDIAG ordered. EDMS 16:53 Call Respiratory complete. mb9 16:54 Differential diagnosis: Bronchitis Chronic Obstructive Pulmonary Disease pneumonia. pc Plan: labs, meds, nebs, CXR, EKG. 16:59 Test interpretation: EKG. pc 17:22 Test interpretation: X-RAY - interpreted by Radiologist and personally reviewed, 1 view pc chest no acute disease. 17:22 -Blood Culture (Adults Only), peripheral from different site, or from device/port/PICC tmm1 etc. if present complete. 17:23 BLOOD CULTURES Ordered. EDMS 17:27 CBC with Diff Reviewed. pc 17:38 Chest, 1 View Reviewed. pc 17:52 Basic Metabolic Profile Reviewed. pc 17:52 Cardiac Injury Profile Reviewed. pc 17:52 Troponin Reviewed. pc 17:56 BED REQUEST+ADM ordered. EDMS 17:56 Data reviewed: old medical records, vital signs, nurses notes, EKG(s), lab test pc results, all radiology studies and available results. Test interpretation: LAB - all labs as ordered have been reviewed, interpreted and considered in the overall management of the clinical presentation;. The patient has been re-examined and re-evaluated. The patient's symptoms have mildly improved after treatment, but she continues to have poor air entry and is still wheezing. She will require admission. 18:01 Physician consultation: Dr. Michaela Lopez was contacted at 18:02, regarding admission, pc and will see patient in ED. Disposition: The historical points, examination findings, and any diagnostic results supporting the provided diagnosis, were discussed with the patient or legal guardian. The need for further work-up and/or treatment in the hospital was explained. 18:06 ARTERIAL BLOOD GAS Ordered. EDMS 18:06 BRAIN NATIURETIC PEPTIDE Ordered. EDMS 18:26 Financial registration complete. gb 18:31 RENAL DIET+DIET ordered. EDMS 18:32 [facility] Payment Agreement was scanned into Ynsect and attached to record. gb 21:12 ARTERIAL BLOOD GAS Reviewed. pc 21:12 BRAIN NATIURETIC PEPTIDE Reviewed. pc 21:12 Chest, 1 View Reviewed. pc 21:13 Ambulate Patient wth Pulse Oximetry ordered. pc 21:29 Repeat EKG (put time details section) ordered. pc 21:32 Repeat EKG (put time details section) complete. tmm1 21:33 ECG WITH READING ER PHYS ordered. EDMS 21:39 Test interpretation: EKG. pc 21:39 ED course: After being evaluated for admission, the patient now requests discharge pc home. She was able to ambulate and maintain a PO of 89-91% on room air. Her pulse did increase for 70 to 95-100 but she was asymptomatic. Dr. Vasques has arranged for her discharge home . 21:45 predniSONE 40 mg PO Per package directions; dispense to go: take in the A.M. ordered. pc 21:45 azithromycin 500 mg PO once ordered. pc 12/15 11:22 T-Sheet-- Draft Copy was scanned into Ynsect and attached to record. gb 11:22 Trend VS was scanned into Ynsect and attached to record. gb EC/24 16:59 Rate is 67 beats/min. Rhythm is regular, Normal Sinus Rhythm with PACs. Left axis pc deviation noted. QRS is negative in leads II, aVF. OK interval is normal. QRS interval is normal. QT interval is normal. No Q waves. T waves are Inverted in leads III, aVF. No ST changes noted. Clinical impression: Normal Sinus Rhythm and LAD, Nonspecific T wave changes. Changes noted from previous ECG on November 24, 2016. 21:39 Rate is 68 beats/min. Rhythm is regular, Normal Sinus Rhythm. Left axis deviation pc noted. QRS is negative in leads II, aVF. OK interval is normal. QRS interval is normal. QT interval is normal. No Q waves. T waves are Normal. No ST changes noted. Clinical impression: Normal Sinus Rhythm, Incomplete RBBB, and LAD. Administered Medications: 17:02 Drug: Solu-MEDROL 125 mg [Solu-Medrol 500 mg intravenous solution (125 mg)] Route: IVP; mb9 Site: right antecubital; 17:18 Drug: Albuterol-Ipratropium 1 neb [ipratropium-albuterol 0.5 mg-3 mg(2.5 mg base)/3 mL rs5 nebulization soln (1 neb)] Route: Nebulizer; 17:18 Drug: Albuterol-Ipratropium 1 neb [ipratropium-albuterol 0.5 mg-3 mg(2.5 mg base)/3 mL rs5 nebulization soln (1 neb)] Route: Nebulizer; 17:19 Drug: Albuterol-Ipratropium 1 neb [ipratropium-albuterol 0.5 mg-3 mg(2.5 mg base)/3 mL rs5 nebulization soln (1 neb)] Route: Nebulizer; 22:05 Drug: predniSONE 40 mg Route: PO; cf2 22:11 Follow up: Response: No significant change. cf2 22:05 Drug: azithromycin 500 mg [azithromycin 250 mg tablet (2 tabs)] Route: PO; cf2 22:11 Follow up: Response: No significant change. cf2 Critical Care Time: 18:01 Critical care time: Bedside Care: 20 minutes, Consultation: 10 minutes, Family pc Intervention: 10 minutes. Total time: 40 minutes Signatures: Dispatcher [employer] EDMS Julio Grace MD MD pc Barnhardt, Gloria, Reg Reg gb Trish Newby,RN RN kr3 Andreina Dyson, [employer] OPERATOR tmm1 Rohit Maloney RN RN mb9 Nimisha Bradley RN RN elvi2 Aramis Pfeiffer RT rs5 The chart was reviewed and I authenticate all verbal orders and agree with the evaluation and treatment provided.Attachments: 18:32 [facility] Payment Agreement gb 12/15 11:22 T-Sheet-- Draft Copy gb Chart Complete MTDD
== END 2016-12-14 22:30 | disposition home or self-care (01) ==
LOC: M ED 16:19
DX: J44.1 Chronic obstructive pulmonary disease with (acute) exacerbation (principal); I12.0 Hypertensive chronic kidney disease with stage 5 chronic kidney disease or end stage renal disease; N18.6 End stage renal disease; Z99.2 Dependence on renal dialysis; E03.9 Hypothyroidism, unspecified; Q61.3 Polycystic kidney, unspecified; F17.210 Nicotine dependence, cigarettes, uncomplicated; Z79.82 Long term (current) use of aspirin; Z79.51 Long term (current) use of inhaled steroids; Z79.899 Other long term (current) drug therapy
CPT/HCPCS: 36415; 71010; 80048; 82550; 82553; 82803; 83880; 84484; 85025; 87040; 93005; 93041; 94640; 96374; 99285; J2930

== ENCOUNTER 2017-02-01 15:08 | Inpatient (IN) | payer OTHER, MEDICAID ==
[~2017-02-01] VITALS: Ht 157.5 cm; Wt 57.3 kg
[2017-02-01] MEDS: NICOTINE 14 MG/24 HR TRANSDERMAL TD SCH (09:00)
[~2017-02-01 15:08] MED LIST changes: +ATEN25TA PO; +LOSA100T36 PO
[2017-02-01 15:58] LABS: BASO # 0.1 K/mm3 (0.0-0.2); BASO % 0.6 % (0.0-1.0); EOS # 0.4 K/mm3 (0.0-0.50); EOS % 4.4 % (0.0-3.0); LARGE UNSTAINED CELL # 0.2 K/mm3 (0.0-0.4); LARGE UNSTAINED CELL % 1.8 % (0.0-4.0); LYMPH # 1.2 K/mm3 (1.5-4.5); MEAN CORPUSCULAR HEMOGLOBIN 30.1 pg (27.0-33.0); MONO # 0.5 K/mm3 (0.0-0.8); MONO % 5.2 % (0.0-5.0); NEUTROPHILS # 7.9 K/mm3 (1.8-7.7); NEUTROPHILS % 77.9 % (36.0-66.0); PLATELET COUNT, AUTOMATED 189 k/mm3 (150-450); RED CELL DISTRIBUTION WIDTH 16.6 % (11.5-14.5); WHITE BLOOD COUNT 10.1 K/mm3 (4.0-10.0)
--- NOTE | 2017-02-01 16:18 | REP ---
AP PORTABLE CHEST: 02/01/2017. Comparison: 12/14/2016, 11/24/2016. Clinical history: Dyspnea and cough. Two AP portable views of the chest to encompass both CP angles were provided. Lung louis are well inflated. CP angles are sharply defined without evidence of effusion. There is no lateral pleural thickening apical scarring. I see no dense consolidation. There is some patchy infrahilar atelectasis or infiltrate in the right base and some peribronchial thickening bilaterally that may reflect some bronchitis or reactive airway disease. No dense consolidation with silhouetting of the right heart border or diaphragm. No parenchymal mass. Pulmonary arteries are prominent centrally suggesting some pulmonary artery hypertension. No gross cardiomegaly. Vascular redistribution was intact. The aorta is mildly tortuous but without aneurysm. There are some degenerative changes in the spine. Impression: 1. Some minor patchy infrahilar atelectasis or infiltrate on the right with some peribronchial thickening that may reflect reactive airway disease or bronchitis. There is no air bronchogram or dense consolidation, pleural effusion, cardiomegaly or edema. Signed by Juan Parsons MD 02/01/2017 05:19 P
[2017-02-01 16:52] LABS: CALCIUM LEVEL 7.8 MG/DL (8.8-10.2); CREATININE FOR GFR 5.34 MG/DL (0.55-1.02); GLOMERULAR FILTRATION RATE 8.5 (>45); POTASSIUM SERUM 4.5 MEQ/L (3.5-5.1)
[2017-02-01] MEDS ORDERED: methylPREDNISolone INJ 125 MG/2 ML VIAL (J2930) IV ONE ×2 (17:15→22:00)
[2017-02-01] MEDS ORDERED: IPRATROPIUM 0.5MG/ALBUTEROL 2.5MG INH SOL UD 3ML (DUONEB)(J7620) NEB ONE (17:15)
[2017-02-01] MEDS ORDERED: DOXYCYCLINE HYCLATE 100 MG in D5W MINI-BAG PLUS 100 ML IV ONE (19:15)
[2017-02-01] MEDS ORDERED: ALBUTEROL SULFATE 2.5 MG/0.5 ML INH NEB SOLN NEB ONE (19:15)
[2017-02-01] MEDS ORDERED: IPRATROPIUM 0.5MG/ALBUTEROL 2.5MG INH SOL UD 3ML (DUONEB)(J7620) NEB PRN (19:30)
[2017-02-01] MEDS ORDERED: ACETAMINOPHEN TAB 650MG DOSE (2X325MG) PO PRN (19:30)
[2017-02-01] MEDS: IPRATROPIUM 0.5MG/ALBUTEROL 2.5MG INH SOL UD 3ML (DUONEB)(J7620) NEB SCH (19:53)
[2017-02-01 19:55] VITALS: O2SAT 96
[2017-02-01] MEDS ORDERED: SYMB16INH INH (20:21)
[2017-02-01 20:22] VITALS: BP 131/71
--- NOTE | 2017-02-01 20:51 | HPEPDOC ---
General Date of Admission Feb 01, 2017 at 19:30 Chief Complaint The patient is a 66-year-old female Presented to the hospital with complaints of shortness of breath. History of Present Illness Patient is a 66 year old female with a PMHx of ESRD on HD (MWF), Polycystic kidney disease, COPD, Hypothyroidism, Anxiety / Depression and chronic tobacco abuse who presented to the ER with complaints of shortness of breath that has been progressively worsening over the last 1 week. Patient notes that she has been having worsening shortness of breath. It has been getting worse with ambulation. She reports a productive cough with thick clear sputum, denies blood. She denies any chest pain, palpitations or fevers at home. She denies any orthopnea, but does note that she has frequent night time awakenings. She denies any current leg swelling. She use to use her inhaler 3-4x daily before with relief, currently she uses the same amount without any relief. She denies any previous history of intubation for COPD exacerbation. Her last COPD exacerbation was in November. She follows with Dr. Gutiérrez as an outpatient. She reports that she was recently taken off her oral steroids on 01/25 and since then her symptoms have worsened. She denies any nausea, vomiting, abdominal pain, constipation, diarrhea or urinary symptoms. Home Medications Scheduled (Activella 1-0.5 mg) 1 Tab Tab 1 TAB PO DAILY (Reported) (Arielle-Roby Rx 1 mg) 1 Tab Tab 1 TAB PO DAILY (Reported) (Incruse Ellipta) 62.5 Mcg/Inh Inh 62.5 MCG INH DAILY (Reported) Aspirin (Aspirin 81) 81 Mg Tab 81 MG PO DAILY (Reported) Atenolol (Atenolol) 25 Mg Tab 25 MG PO DAILY (Reported) Budesonide/Formoterol (Symbicort 160-4.5 Mcg/Act) 60 Puff/Inhaler Aers 2 PUFF INH BID (Reported) Escitalopram Oxalate (Lexapro) 10 Mg Tab 10 MG PO QHS (Reported) Levothyroxine Sodium (Synthroid) 137 Mcg Tab 137 MCG PO DAILY (Reported) Lorazepam (Lorazepam) 1 Mg Tab 1 MG PO BID (Reported) Losartan Potassium (Losartan Potassium) 100 Mg Tab 100 MG PO DAILY (Reported) Minoxidil (Minoxidil) 2.5 Mg Tab 2.5 MG PO DAILY (Reported) Scheduled PRN Albuterol Sulfate (Ventolin Hfa) 200 Puff/8 Gm Aers 2 PUFF INH Q4H PRN PRN SHORTNESS OF BREATH (Reported) Albuterol Sulfate (Albuterol Sulfate) 2.5 Mg/3 Ml Nebu 2.5 MG INH Q4H PRN PRN SHORTNESS OF BREATH (Reported) Ipratropium [place] (Atrovent Hfa) 17 Mcg/Act Aer 2 PUFFS INH QID PRN PRN SHORTNESS OF BREATH (Reported) Lorazepam (Lorazepam) 1 Mg Tab 1 MG PO DAILY PRN PRN ANXIETY (Reported) Allergies Coded Allergies: Lisinopril (Verified Allergy, Severe, tongue swelling, 12/05/14) Codeine (Unverified Adverse Reaction, Mild, GI UPSET, 01/14/16) Past Medical History Medical History ESRD on HD (MWF), Polycystic kidney disease, COPD, Hypothyroidism, Anxiety / Depression and chronic tobacco abuse Surgical History Right femur repair Left forearm dialysis graft Colonoscopy 2006 - Dr. 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 Review of Symptoms Other systems Constitutional: Denies weight loss, change in appetite, or recent trauma Eyes: No visual changes or eye pain Ears, Nose, Throat: Denies nose bleeds, or difficulty swallowing Cardiovascular: Denies chest pain, sweating, or orthopnea Respiratory: Positive cough, wheezing, and shortness of breath GI: Riley nausea, vomiting, abdominal pain, diarrhea or constipation : Denies pain with urination or frequency Musculoskeletal: Denies joint pain or swelling Neuro / Psych: Denies muscle weakness or sensory loss Skin: No skin rashes noted All other review of systems negative; otherwise stated in history of present illness Vital Signs - Vitals: BP 129/69, HR 77, RR 28, Sat 88%RA, Temp 98.2F - General: Lying in bed, No acute distress, Speaking in full sentences, AAOx3 - HEENT: NC, AT, PERRLA, EOMI - CVS: RRR, +S1S2, - Murmurs / rubs / gallops - Lungs: Fair air entry bilaterally, + Expiratory wheezing bilaterally - Abdomen: Soft, Non-distended, Non-tender, + Bowel sounds x 4 - Extremities: + PPx4, No lower extremity edema, No calf tenderness - Neuro: No focal motor or sensory deficit - Skin: No visible rashes Laboratory Data Labs 24H Laboratory Tests 2 02/01/17 15:45: B-Type Natriuretic Peptide 350H 02/01/17 15:47: Anion Gap 12, White Blood Count 10.1H, Red Blood Count 3.96L, Hemoglobin 11.9L, Hematocrit 37.2, Mean Corpuscular Volume 94.0, Mean Corpuscular Hemoglobin 30.1 , Mean Corpuscular Hemoglobin Concent 32.0, Red Cell Distribution Width 16.6H, Platelet Count 189, Neutrophils (%) (Auto) 77.9H, Lymphocytes (%) (Auto) 10.0L, Monocytes (%) (Auto) 5.2H, Eosinophils (%) (Auto) 4.4H, Basophils (%) (Auto) 0.6 , Neutrophils # (Auto) 7.9H, Lymphocytes # (Auto) 1.2L, Monocytes # (Auto) 0.5, Eosinophils # (Auto) 0.4, Basophils # (Auto) 0.1, Blood Urea Nitrogen 28H, Creatinine 5.34H, Sodium Level 141, Potassium Level 4.5, Chloride Level 101, Carbon Dioxide Level 28, Calcium Level 7.8L, Glomerular Filtration Rate 8.5L, Large Unclassified Cells # 0.2, Large Unclassified Cells % 1.8, Thyroid Stimulating Hormone (TSH) 1.060 CBC/BMP Laboratory Tests 02/01/17 15:47 Calcium Level 7.8 L, Red Blood Count 3.96 L, Mean Corpuscular Volume 94.0, Mean Corpuscular Hemoglobin 30.1, Mean Corpuscular Hemoglobin Concent 32.0, Red Cell Distribution Width 16.6 H, Neutrophils (%) (Auto) 77.9 H, Lymphocytes (%) (Auto ) 10.0 L, Monocytes (%) (Auto) 5.2 H, Eosinophils (%) (Auto) 4.4 H, Basophils (% ) (Auto) 0.6, Neutrophils # (Auto) 7.9 H, Lymphocytes # (Auto) 1.2 L, Monocytes # (Auto) 0.5, Eosinophils # (Auto) 0.4, Basophils # (Auto) 0.1 Microbiology Microbiology 02/01/17 Blood Culture, Received Pending Plan / VTE VTE Prophylaxis Ordered?: Yes Plan Plan Acute hypoxic respiratory failure likely 2/2 acute COPD exacerbation - presented with SOB, cough and wheezing - has been recently discontinued from oral steroids - physical reveals expiratory wheezing bilaterally - CXR does not reveal any acute infiltrates - failed to improve with breathing treatments in the ER - Will give loading dose of solumedrol and solumedrol 60 IV q8 - will continue with duoneb breathing treatments - will c/w Doxycycline Leukocytosis - possibly reactive, possibly infectious etiology - Will check sputum cultures, blood cultures - CXR does not reveal any acute infiltrates - Will c/w Doxycycline for now ESRD on HD (MWF) 2/2 Polycystic kidney disease - Last HD was on Tuesday without any issues - Uses left forearm graft - Follows with Dr. Mena Hypothyroidism - c/w levothyroxine Anxiety / Depression - c/w Lexapro HTN - c/w atenolol and losartan with holding parameters Chronic tobacco abuse - advised smoking cessation - will start nicotine patch DVT prophylaxis - Will start heparin KADEEM KENDRICK MD Feb 01, 2017 20:51
[2017-02-01] MEDS: SYMBICORT 160/4.5MCG INHALER 6GM INH SCH (21:00)
[2017-02-01] MEDS ORDERED: LORazepam 1 MG TAB PO PRN (21:00)
[2017-02-01] MEDS: LORazepam 1 MG TAB PO SCH (22:17)
[2017-02-01] MEDS: ESCITALOPRAM OXALATE 10 MG TAB (LEXAPRO) PO SCH (22:17)
[2017-02-01 23:49] LABS: ABG BASE EXCESS 1.4 (-2.0-2.0); ABG HCO3 25.4 MEQ/L (22.0-26.0); ABG PARTIAL PRESSURE CO2 37.7 mmHg (35.0-45.0); ABG STANDARD HCO3 25.8 MEQ/L (22.0-26.0); ABG TOTAL CO2 26.5 MEQ/L (23.0-31.0); ABG pH (ARTERIAL) 7.446 UNITS (7.350-7.450)
[2017-02-02] MEDS ORDERED: UNRESOLVED CLARIFICATION ENTRY XX SCH (00:01)
[2017-02-02] MEDS: IPRATROPIUM 0.5MG/ALBUTEROL 2.5MG INH SOL UD 3ML (DUONEB)(J7620) NEB SCH ×5 (02:00→19:52)
[2017-02-02 06:00] VITALS: BP 122/77
[2017-02-02] MEDS: HEPARIN SOD (PORCINE) 5000 UNITS/ML VIAL SC SCH ×4 (06:00→21:14)
[2017-02-02] MEDS ORDERED: methylPREDNISolone INJ 125 MG/2 ML VIAL (J2930) IV SCH ×2 (06:00→12:15)
[2017-02-02] MEDS: LEVOTHYROXINE 0.137 MG TAB (137MCG) PO SCH (06:40)
[2017-02-02] MEDS: LORazepam 1 MG TAB PO SCH ×2 (06:40→21:14)
[2017-02-02] MEDS: NICOTINE 14 MG/24 HR TRANSDERMAL TD SCH (06:41)
[2017-02-02] MEDS: DOXYCYCLINE HYCLATE 100 MG in D5W MINI-BAG PLUS 100 ML IV SCH ×2 (06:41→19:31)
[2017-02-02 07:06] LABS: BASO % 0.2 % (0.0-1.0); EOS % 0.3 % (0.0-3.0); LARGE UNSTAINED CELL # 0.1 K/mm3 (0.0-0.4); LYMPH # 0.6 K/mm3 (1.5-4.5); LYMPH % 10.8 % (24.0-44.0); MEAN CORPUSCULAR HGB CONC 31.2 g/dl (32.0-36.5); MEAN CORPUSCULAR VOLUME 93.2 fl (80.0-96.0); MONO # 0.1 K/mm3 (0.0-0.8); MONO % 2.1 % (0.0-5.0); NEUTROPHILS % 85.6 % (36.0-66.0); PLATELET COUNT, AUTOMATED 195 k/mm3 (150-450); RED CELL DISTRIBUTION WIDTH 16.3 % (11.5-14.5); WHITE BLOOD COUNT 5.8 K/mm3 (4.0-10.0)
[2017-02-02 07:31] LABS: ALBUMIN 2.9 GM/DL (3.2-5.2); ALBUMIN/GLOBULIN RATIO 0.78 (1.00-1.93); BILIRUBIN,TOTAL 0.6 MG/DL (0.2-1.0); CALCIUM LEVEL 8.1 MG/DL (8.8-10.2); CREATININE FOR GFR 6.25 MG/DL (0.55-1.02); GLOMERULAR FILTRATION RATE 7.1 (>45); MAGNESIUM LEVEL 2.3 MG/DL (1.8-2.4); POTASSIUM SERUM 4.3 MEQ/L (3.5-5.1); TOTAL PROTEIN 6.6 GM/DL (6.4-8.2)
[2017-02-02] MEDS: SYMBICORT 160/4.5MCG INHALER 6GM INH SCH ×2 (08:18→19:52)
--- NOTE | 2017-02-02 08:19 | ECGEPIP ---
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
[2017-02-02] MEDS: ASPIRIN 81 MG ENTERIC TAB PO SCH (10:07)
[2017-02-02] MEDS: LOSARTAN 50 MG TAB PO SCH (10:07)
[2017-02-02] MEDS: ATENOLOL 25 MG TAB PO SCH (10:08)
[2017-02-02] MEDS: MINOXIDIL 2.5 MG TAB PO SCH (10:08)
[2017-02-02] MEDS ORDERED: LIDOCAINE 1% SDV 5 ML VIAL SQ ONE (12:15)
[2017-02-02] MEDS: methylPREDNISolone INJ 40 MG/1 ML VIAL (J2920) IV SCH ×2 (14:00→21:13)
--- NOTE | 2017-02-02 16:52 | IPN ---
DATE: 02/02/2017 Ms. Blackmon is feeling better today. She is still short of breath but feels much better than she did last night when she arrived. She has no chest pain. She has cough which is nonproductive of sputum. She is having some trouble bringing up sputum at this point. Temperature is 97.5, pulse is 63, respiratory rate 15, blood pressure 122/77, 99% on two liters nasal cannula. She is not on home oxygen. No bowel movements noted. Body mass index is 17.3. She is awake, lying in bed, pleasantly conversant, thin appearing. Mucous membranes moist. Neck is supple. Breathing is symmetrically diminished. I:E ratio is 1:4. No accessory muscle use. Speaking in complete sentences. Heart is distant sounding, normal S1, S2. Abdomen is soft, doughy, nontender. LABORATORY DATA: White cell count 5.8, hemoglobin 11.2. BUN is 41 and creatinine is 6.25. ASSESSMENT: This is a 66-year-old who presented with acute hypoxic respiratory failure thought to be due to chronic obstructive pulmonary disease (COPD) exacerbation in the setting of end-stage renal disease on hemodialysis. PLAN: 1. Respiratory. The patient will be given an Acapella device. Steroid will be weaned as she is beginning to show improvement. Continue with aggressive pulmonary toilet and continuing doxycycline as previously ordered. 2. The patient has end-stage renal disease, on hemodialysis. Planned for dialysis today and following with Dr. Mena. 3. The patient has hypothyroidism. 4. The patient has hypertension, on atenolol and losartan with hold parameters. 5. The patient has appropriate deep vein thrombosis (DVT) prophylaxis.
--- NOTE | 2017-02-02 19:21 | CR ---
DATE OF CONSULTATION: 02/02/2017 REQUESTING PHYSICIAN: Dr. Grullon. REASON FOR CONSULTATION: Assistance in management of end-stage renal disease. PRIMARY CARE PROVIDER: Sarah Pickard NP. CHIEF COMPLAINT: Shortness of breath. HISTORY OF PRESENT ILLNESS: Ms. Blackmon is a 66-year-old female with past medical history of polycystic kidney disease, end-stage renal disease on hemodialysis, chronic obstructive pulmonary disease (COPD), tobacco abuse, who presented to the emergency department (ED) last night with complaint of worsening shortness of breath for at least one week. Of note, she was recently admitted in November; at that time, was for COPD exacerbation. Despite her symptoms, she continues to smoke. In the last week or so, noticed that her shortness of breath has limited her ability to ambulate. She is unable to describe how her breathing has worsened. Normally, whenever her shortness of breath occurs, her nebulizer treatment would provide relief but this episode, her symptoms persisted despite using inhalers. Associated with clear productive sputum. No chest pain, palpitations, fevers, chills, pillow orthopnea. Does report paroxysmal nocturnal dyspnea but no leg swelling or weight gain. She was recently on steroid until , and noticed that her symptoms worsened since being off the steroids. Nephrology service is requested for assistance in management of dialysis in this end stage renal disease patient. PAST MEDICAL HISTORY: 1. Polycystic kidney disease. 2. End-stage renal disease on hemodialysis Tuesday, Tuesday, Tuesday. 3. COPD not home oxygen dependent, has oxygen at home but does not use it. 4. Hypothyroidism. 5. Anxiety/depression. 6. Tobacco abuse. 7. Right hip fracture. 8. Hypertension. PAST SURGICAL HISTORY: 1. Closed reduction internal fixation 2014, of right hip. 2. Colonoscopy 2006. 3. Left forearm dialysis graft placement. HOME MEDICATIONS: - minoxidil 2.5 mg daily - losartan 100 mg daily - Arielle-Roby one tablet by mouth daily - Ativan 1 mg as needed - Ativan 1 mg by mouth twice a day - Synthroid 137 mcg daily - Atrovent two puffs four times a day as needed - Incruse Ellipta 62.5 mcg inhaled daily - Lexapro 10 mg at bedtime - Symbicort 160/4.5 two puffs twice a day - atenolol 25 mg daily - aspirin 81 mg daily - albuterol sulfate 2.5 mg every four hours as needed - Activella one tablet by mouth daily CURRENT MEDICATIONS: - Tylenol 650 mg by mouth as needed - heparin 5000 units subcutaneous every eight hours - DuoNeb every six hours scheduled and as needed - doxycycline 100 mg twice a day - aspirin 81 mg daily - atenolol 25 mg daily - Symbicort two puffs twice a day - Lexapro 10 at bedtime - Synthroid 137 mcg daily - Ativan 1 mg twice a day and as needed - Cozaar 100 mg daily - minoxidil 2.5 mg daily - nicotine patch - Solu-Medrol 60 every eight hours ALLERGIES: 1. LISINOPRIL - angioedema. 2. CODEINE - gastrointestinal (GI) upset. SOCIAL HISTORY: Smokes a pack a day for many years, greater than 30 pack year. Used to drink 2-3 alcoholic beverages a week. None currently. 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 No recent travel. No sick contacts. Currently lives at home with son and grand-kids. No known exposure to tuberculosis. FAMILY HISTORY: Daughter with polycystic kidney disease with plan for dialysis soon. REVIEW OF SYSTEMS: CONSTITUTIONAL: Denies fevers, chills, rigors, weight changes. HEENT: Denies headaches, lightheadedness, dizziness, blurry vision, difficulty with speech and swallow. CARDIOVASCULAR: As above. PULMONARY: Positive as above. GASTROINTESTINAL: Denies hematochezia, melena, or hematemesis, nausea, vomiting, diarrhea, constipation. GENITOURINARY: Positive for polycystic kidney disease and end-stage renal disease on hemodialysis. MUSCULOSKELETAL: No bone, muscle, joint pain. NEUROLOGICAL: No paralysis, paresthesia, headaches. ENDOCRINE: Negative for diabetes. Positive for thyroid disease. LYMPHATICS: No lumps, bumps, or swelling anywhere in neck, axilla, or groin. HEMATOLOGY: No abnormal bleeding or bruising. PSYCHIATRIC: Positive for anxiety/depression. PHYSICAL EXAMINATION: VITAL SIGNS: Blood pressure 122/77, heart rate 63, temperature 97.5, respiratory rate 15, pulse oximetry 92% on two liters nasal cannula. Intake and output in the last 24 hours: 300 and zero output. Weight is 42.9 kg. GENERAL: The patient is lying in bed approximately 30-degree angle. Comfortable. No acute distress. She is alert, awake, oriented times three. Chronically ill and tired appearing. Has appearance of pulmonary cachexia. No acute respiratory distress. HEENT: Normocephalic, atraumatic. Moist oral mucosa. Dentures in place. Nasal prongs in place. NECK: Supple. Trachea midline. Mild neck vein distention. HEART: Regular sounding with normal S1, S2. Could not appreciate murmurs, rubs, or gallops. LUNGS: Breath sounds diminished bilaterally with occasional crepitation, but no audible wheezing. ABDOMEN: Soft, nontender, nondistended. She has multiple palpable cysts by her kidney, large in size. More significant on her right compared to left. Bowel sounds present. No guarding, no rebound. EXTREMITIES: No pedal edema. Pedal pulses present bilaterally. Left upper extremity with arteriovenous (AV) fistula in place. Palpable thrill. NEUROLOGIC: She is alert, awake, oriented times three. No focal deficits. PSYCHIATRIC: Pleasant, cooperative. Normal affect. LABORATORY DATA: WBC 5.8, hemoglobin 11.2, hematocrit 35.9, no significant change compared to yesterday with hemoglobin. Platelets 195. Sodium 136, potassium 4.3, chloride 100, carbon dioxide 26, BUN 41, creatinine 6.25, glucose 145, calcium 8.1, magnesium 2.3, total bilirubin 0.6. Liver profile normal. BNP was 350 on admission. TSH is normal. Albumin is 2.9. ABG on admission: PH 7.44, pCO2 37.7, pO2 106. MICROBIOLOGY: Blood cultures pending. IMAGING: Chest x-ray with patchy infrahilar atelectasis with peribronchial thickening, could be reactive airway disease or bronchitis. No effusion or edema. Hyperinflated. IMPRESSION AND PLAN: Ms. Blackmon is a 66-year-old female with past medical history of COPD, tobacco abuse, end-stage renal disease due to polycystic kidney disease presented with shortness of breath found to have chronic obstructive pulmonary disease (COPD) exacerbation. 1. Acute hypoxic respiratory failure. Oxygen saturation was 88% on presentation. This is likely secondary to chronic obstructive pulmonary disease (COPD) exacerbation worsened by her continued tobacco use. The patient is on Solu- Medrol every eight hours. She is also on doxycycline. Advise against continuing tobacco use as it will worsen her symptoms. 2. End-stage renal disease on hemodialysis. Secondary to polycystic kidney disease. We will plan on dialyzing her today, which is her regular dialysis day, Tuesday, Tuesday, Tuesday. She did not require emergent dialysis last night. 3. Hypertension. Blood pressure is within reasonable range. Continue current medications which include minoxidil 2.5 mg daily, Cozaar 100 mg daily, atenolol 25 mg daily. 4. Polycystic kidney disease. Plan for dialysis as mentioned above. 5. COPD exacerbation. Currently being treated with steroids and antibiotic per primary team. Thank you for allowing us to participate in Ms. Blackmon's care. We will continue to follow her closely with you. My preceptor for this patient encounter was Dr. Asa Mena. The preceptor was physically present in the building during the encounter and was fully available as needed. All aspects of the patient interview, examination, medical decision making process, and medical care plan development were reviewed and approved by the preceptor. The preceptor is aware and concurs with the plan as stated in the body of this note and will attest to such by his/her co-signature. BRANDT
[2017-02-02] MEDS: ESCITALOPRAM OXALATE 10 MG TAB (LEXAPRO) PO SCH (21:14)
[2017-02-02 22:00] VITALS: BP 101/56
[2017-02-03] MEDS: IPRATROPIUM 0.5MG/ALBUTEROL 2.5MG INH SOL UD 3ML (DUONEB)(J7620) NEB SCH ×4 (01:52→19:32)
[2017-02-03] MEDS: HEPARIN SOD (PORCINE) 5000 UNITS/ML VIAL SC SCH ×3 (05:48→21:59)
[2017-02-03] MEDS: methylPREDNISolone INJ 40 MG/1 ML VIAL (J2920) IV SCH ×3 (05:53→21:52)
[2017-02-03] MEDS: LEVOTHYROXINE 0.137 MG TAB (137MCG) PO SCH (05:53)
[2017-02-03 06:00] VITALS: BP 136/71
[2017-02-03 06:53] LABS: BASO # 0.1 K/mm3 (0.0-0.2); BASO % 0.4 % (0.0-1.0); EOS % 0.1 % (0.0-3.0); LARGE UNSTAINED CELL # 0.1 K/mm3 (0.0-0.4); LARGE UNSTAINED CELL % 0.7 % (0.0-4.0); LYMPH # 0.7 K/mm3 (1.5-4.5); LYMPH % 4.5 % (24.0-44.0); MEAN CORPUSCULAR HEMOGLOBIN 29.2 pg (27.0-33.0); MEAN CORPUSCULAR HGB CONC 31.1 g/dl (32.0-36.5); MEAN CORPUSCULAR VOLUME 93.7 fl (80.0-96.0); MONO # 0.3 K/mm3 (0.0-0.8); MONO % 2.1 % (0.0-5.0); NEUTROPHILS # 13.7 K/mm3 (1.8-7.7); NEUTROPHILS % 92.3 % (36.0-66.0); PLATELET COUNT, AUTOMATED 252 k/mm3 (150-450); RED CELL DISTRIBUTION WIDTH 16.4 % (11.5-14.5); WHITE BLOOD COUNT 14.8 K/mm3 (4.0-10.0)
[2017-02-03 07:05] LABS: CALCIUM LEVEL 8.5 MG/DL (8.8-10.2); CREATININE FOR GFR 4.42 MG/DL (0.55-1.02); GLOMERULAR FILTRATION RATE 10.6 (>45); PHOSPHORUS LEVEL 3.9 MG/DL (2.5-4.9); POTASSIUM SERUM 3.9 MEQ/L (3.5-5.1)
[2017-02-03] MEDS: SYMBICORT 160/4.5MCG INHALER 6GM INH SCH ×2 (07:38→19:33)
[2017-02-03] MEDS: LOSARTAN 50 MG TAB PO SCH (09:00)
[2017-02-03] MEDS: MINOXIDIL 2.5 MG TAB PO SCH (09:00)
[2017-02-03] MEDS: ATENOLOL 25 MG TAB PO SCH (09:00)
[2017-02-03] MEDS ORDERED: PREVNAR 13 VACCINE SYRINGE (CPT CODE:90670) IM ONE (09:00)
[2017-02-03] MEDS: DOXYCYCLINE HYCLATE 100 MG in D5W MINI-BAG PLUS 100 ML IV SCH ×2 (09:25→20:02)
[2017-02-03] MEDS: NICOTINE 14 MG/24 HR TRANSDERMAL TD SCH (09:28)
[2017-02-03] MEDS: LORazepam 1 MG TAB PO SCH ×2 (09:28→20:01)
[2017-02-03] MEDS: ASPIRIN 81 MG ENTERIC TAB PO SCH (09:28)
--- NOTE | 2017-02-03 12:01 | IPNPDOC ---
Text Note Date of Service The patient was seen on 02/03/17. NOTE Subjective: 66 yo F was seen and examined at bedside. She denied dizziness, blurred vision, fevers, chills, chest pain, SOB, nausea, vomiting, diarrhea, constipation, abdominal pain, weakness, fatigue, rashes/lesions, urinary incontinence, dysuria, hematuria, hematochezia. She reports she is doing well today. Nursing reports no acute events overnight. Wants to know if she can go home today. Objective: Vitals: T 98.6, P 69, RR 16, BP 136/71 (92), Pulse Ox: 93% on 2L NC. General: Pleasant thin cachectic elderly female resting comfortably in bed Patient awake, alert and oriented, verbal and able to answer questions appropriately. She does not appear to be in any acute distress. +Hard of hearing. Sclera Nonicteric. No external nasal lesions. Endocrinology: No thyromegaly. Neck: Supple. No cervical LAD bilaterally. Heart: Regular rate and rhythm, normal S1-S2. No murmurs, rubs, clicks or gallops Lungs: Clear to auscultation bilaterally with diminished breath sounds in all lung louis. No wheezes, rales or rhonchi. No accessory muscle usage noted. Abdomen: Active bowel sounds. Abdomen is a bit rigid, nontender, nondistended, + dense area appreciated on R side of abdomen which is consistent with polycystic kidney. Extremities: No clubbing, cyanosis, edema. Without amputations/deformities. No pedal edema. MSK: Normal ROM. Vascular: +2 radial and dorsalis pedis pulses bilaterally. Psychiatric: No signs of depression or anxiety Laboratory data: Please see below. Microbiology: Please see below. Blood Cx show NGTD x 24 hours. Imaging: No new imaging today. Assessment/Plan: 66 yo F with PMH significant for Acute Hypoxic Respiratory Failure and SOB secondary to COPD exacerbation. 1) Acute Hypoxic Respiratory Failure/SOB 2/2 COPD Exacerbation: Satting today at 93% on 2 L nasal cannula. Patient wanting to go home today, however, we did a Walk Test without oxygen and patient had desaturated down to 86%. Unfortunately, we will not be able ti discharge her today until she can be weaned off of oxygen. Will continue current management. Continue aggressive pulmonary toilet, acapella, doxycycline, breathing treatments with duonebs scheduled q6 hours and q2 hours PRN SOB/wheezing, continue symbicort 2 puffs BID. Aim for O2 saturation of 90-92%. Continue to keep at 2 L O2 via nasal cannula. Continue solumedrol 40 mg q8 hours daily today. Will taper tomorrow to 30 mg tomorrow for 2 days. 2) Leukocytosis: WBC up to 14.8 today. Patient afebrile and not c/o of any symptoms. Continue to monitor for fevers, chills, and O2 saturations. Continue doxycycline. Blood cx show NGTD x 24 hours. Sputum cultures ordered today and pending. 3) ESRD on HD 2/2 Polycystic Kidney Disease (MWF schedule): Patient received HD yesterday without any acute complications. Uses L forearm graft. Nephrology is following patient. Follow with Nephrology recommendations. Appreciate input. 4) Hypertension: Continue atenolol and losartan with hold parameters. 5) Hypothyroidism: Continue Synthroid. 6) Anxiety/depression: Continue Lexapro and Ativan. 7) Chronic tobacco use: Continue nicotine patch. 8) Continue home medications. DVT prophylaxis: Continue heparin 5000 units q8 hours subcutaneous. GI prophylaxis: Immunizations as per protocol. VS,Fishbone, I+O VS, Fishbone, I+O Laboratory Tests 02/03/17 06:24 Anion Gap 12, Red Blood Count 3.75 L, Mean Corpuscular Volume 93.7, Mean Corpuscular Hemoglobin 29.2, Mean Corpuscular Hemoglobin Concent 31.1 L, Red Cell Distribution Width 16.4 H, Neutrophils (%) (Auto) 92.3 H, Lymphocytes (%) ( Auto) 4.5 L, Monocytes (%) (Auto) 2.1, Eosinophils (%) (Auto) 0.1, Basophils (% ) (Auto) 0.4, Neutrophils # (Auto) 13.7 H, Lymphocytes # (Auto) 0.7 L, Monocytes # (Auto) 0.3, Eosinophils # (Auto) 0.0, Basophils # (Auto) 0.1 Vital Signs Date Time Temp Pulse Resp B/P Pulse Ox O2 Delivery O2 Flow Rate FiO2 02/03/17 09:00 108/55 02/03/17 09:00 69 02/03/17 06:11 90 Nasal Cannula 2.0 02/03/17 06:00 98.6 16 I&O- Last 24 Hours up to 6 AM 02/03/17 06:00 Intake Total 1660 ml Output Total 1500 ml Balance 160 ml GME ATTESTATION GME ATTESTATION My preceptor for this patient encounter was Dr. Kenneth Ulloa, and was physically present in the building during the encounter and was fully available. As needed , all aspects of the patient interview, examination, medical decision making process, and medical care plan development were reviewed and approved by the preceptor. Preceptor is aware and concurs with the plan as stated in the body of this note and will attest to such by his/her cosignature. KARLIE CHRIS OGME-1 Feb 03, 2017 12:01
[2017-02-03 14:00] VITALS: BP 122/58
[2017-02-03] MEDS ORDERED: MAALOX 30 ML SUSP *UDC PO PRN (15:30)
[2017-02-03] MEDS: CALCIUM CARBONATE 500 MG CHEW U/D PO PRN ×2 (16:20→21:52)
[2017-02-03] MEDS: FLUCONAZOLE 100 MG TAB PO SCH (20:00)
[2017-02-03] MEDS: ESCITALOPRAM OXALATE 10 MG TAB (LEXAPRO) PO SCH (20:00)
[2017-02-03 22:00] VITALS: BP 100/57
[2017-02-04] MEDS: IPRATROPIUM 0.5MG/ALBUTEROL 2.5MG INH SOL UD 3ML (DUONEB)(J7620) NEB SCH ×4 (01:22→20:00)
--- NOTE | 2017-02-04 04:11 | IPN ---
DATE: 02/03/2017 SUBJECTIVE: This is a 66-year-old female who was seen and examined at bedside. Yesterday, underwent hemodialysis, had a total of 1.5 kg removed and tolerated that well. This morning, she is anxious to go home. REVIEW OF SYSTEMS: Denies fevers, chills, headaches, nausea, vomiting, diarrhea , chest pain, shortness of breath. OBJECTIVE: VITAL SIGNS: Blood pressure 136/71, heart rate 69, temperature 98.6, pulse oximetry 93% on two liters nasal cannula, respiratory rate 16. Intake and output last 24 hours: 1900 and 1500, positive 400. No bowel movements documented. GENERAL: Patient is lying in bed comfortable in no acute respiratory distress, awake, alert, oriented times three, chronically ill appearing, tired, cachectic. HEENT: Normocephalic, atraumatic. Moist oral mucosa. Dentures in place. Nasal prongs present. NECK: Supple. Trachea midline. No significant neck vein distention on flat angle. CHEST: Breath sounds diminished with crepitations and audible wheezing. HEART: Regular rate and rhythm, distant sounding. Normal S1-S2. Did not appreciate murmurs, rubs, or gallops. ABDOMEN: Soft, nontender, nondistended. Bowel sounds present. Persistent multiple palpable cysts by her right abdomen compared to left. EXTREMITIES: No pedal edema. Pedal pulses present bilaterally. Left atrioventricular (AV) fistula with palpable thrill. NEUROLOGIC: No focal deficits, alert, awake and oriented times three. PSYCHIATRIC: Pleasant, cooperative, anxious to go home. LABORATORY DATA: WBC 14.8, hemoglobin 10.9, hematocrit 35.2, platelets 252. Sodium 136, potassium 3.9, chloride 99, carbon dioxide 25, BUN 34, creatinine 4.42, glucose 123, calcium 8.5, phosphorus 3.9. Blood cultures negative after 24 hours. IMPRESSION AND PLAN: Ms. Blackmon is a 66-year-old female with past medical history of end-stage renal disease due to polycystic kidney disease and COPD presented with shortness of breath found to have chronic obstructive pulmonary disease (COPD) exacerbation. 1. Acute hypoxic respiratory failure. Secondary to COPD exacerbation. She is on Solu-Medrol every eight hours. Dose was decreased yesterday. Continue doxycycline. Today, patient is very anxious to go home. However, based on her physical exam with persistent wheezing and oxygen need, we recommend continued monitoring and steroid use. Unfortunately, she is very adamant on leaving and anxious to go home and smoke. 2. End-stage renal disease on hemodialysis. Secondary to polycystic kidney disease. Underwent hemodialysis yesterday and tolerated that well. If she decides to leave today, she will require outpatient dialysis tomorrow, otherwise we will plan for inpatient dialysis in the morning. 3. Hypertension. Blood pressure is within reasonable range. We will continue minoxidil 2.5 mg daily, Cozaar 100 mg daily, and atenolol 25 mg daily. 4. Polycystic kidney disease. She is on hemodialysis Tuesday, Tuesday, and Tuesday. 5. COPD exacerbation. Continue steroids and doxycycline per primary team. Case discussed with Dr. Ulloa. My preceptor for this patient encounter was Dr. Asa Mena. The preceptor was physically present in the building during the encounter and was fully available as needed. All aspects of the patient interview, examination, medical decision making process, and medical care plan development were reviewed and approved by the preceptor. The preceptor is aware and concurs with the plan as stated in the body of this note and will attest to such by his co-signature. BRANDT
[2017-02-04 06:00] VITALS: BP 145/78
[2017-02-04] MEDS: HEPARIN SOD (PORCINE) 5000 UNITS/ML VIAL SC SCH ×3 (06:00→22:00)
[2017-02-04] MEDS: methylPREDNISolone INJ 40 MG/1 ML VIAL (J2920) IV SCH (06:27)
[2017-02-04] MEDS: ASPIRIN 81 MG ENTERIC TAB PO SCH (06:28)
[2017-02-04] MEDS: FLUCONAZOLE 100 MG TAB PO SCH (06:28)
[2017-02-04] MEDS: NICOTINE 14 MG/24 HR TRANSDERMAL TD SCH (06:28)
[2017-02-04] MEDS: LEVOTHYROXINE 0.137 MG TAB (137MCG) PO SCH (06:28)
[2017-02-04] MEDS: DOXYCYCLINE HYCLATE 100 MG in D5W MINI-BAG PLUS 100 ML IV SCH ×2 (06:28→20:27)
[2017-02-04] MEDS: LORazepam 1 MG TAB PO SCH ×2 (06:28→20:27)
[2017-02-04 06:29] LABS: BASO % 0.1 % (0.0-1.0); EOS % 0.1 % (0.0-3.0); LARGE UNSTAINED CELL % 0.4 % (0.0-4.0); LYMPH # 0.5 K/mm3 (1.5-4.5); LYMPH % 4.5 % (24.0-44.0); MEAN CORPUSCULAR HEMOGLOBIN 29.5 pg (27.0-33.0); MONO # 0.2 K/mm3 (0.0-0.8); MONO % 1.9 % (0.0-5.0); NEUTROPHILS # 10.1 K/mm3 (1.8-7.7); NEUTROPHILS % 93.2 % (36.0-66.0); PLATELET COUNT, AUTOMATED 232 k/mm3 (150-450); RED CELL DISTRIBUTION WIDTH 16.4 % (11.5-14.5); WHITE BLOOD COUNT 10.9 K/mm3 (4.0-10.0)
[2017-02-04 06:33] LABS: ALBUMIN 2.9 GM/DL (3.2-5.2); CALCIUM LEVEL 7.9 MG/DL (8.8-10.2); CREATININE FOR GFR 5.8 MG/DL (0.55-1.02); GLOMERULAR FILTRATION RATE 7.7 (>45); PHOSPHORUS LEVEL 3.5 MG/DL (2.5-4.9)
[2017-02-04] MEDS: SYMBICORT 160/4.5MCG INHALER 6GM INH SCH ×2 (07:31→20:07)
--- NOTE | 2017-02-04 10:58 | IPNPDOC ---
Text Note Date of Service The patient was seen on 02/04/17. NOTE Subjective: 66 yo F was seen and examined at bedside. She denied dizziness, blurred vision, fevers, chills, chest pain, SOB, nausea, vomiting, diarrhea, constipation, abdominal pain, weakness, fatigue, rashes/lesions, urinary incontinence, dysuria, hematuria, hematochezia. She is receiving dialysis today. Reports no acute events overnight. Objective: Vitals: T 98.5, P 68, RR 16, BP 145/78 (100), Pulse Ox: 94 % on room air. General: Pleasant thin cachectic elderly female resting comfortably in dialysis bed. Patient awake, alert and oriented, verbal and able to answer questions appropriately. She does not appear to be in any acute distress. +Hard of hearing. Sclera Nonicteric. No external nasal lesions. Endocrinology: No thyromegaly. Neck: Supple. No cervical LAD bilaterally. Heart: Regular rate and rhythm, normal S1-S2. No murmurs, rubs, clicks or gallops Lungs: Diminished breath sounds in all lung louis. Positive end expiratory wheezes. No rales or rhonchi. No accessory muscle usage noted. Abdomen: Active bowel sounds. Abdomen is a bit rigid, nontender, nondistended, + dense area appreciated on R side of abdomen which is consistent with polycystic kidney. Extremities: No clubbing, cyanosis, edema. Without amputations/deformities. No pedal edema. MSK: Normal ROM. Vascular: +2 radial and dorsalis pedis pulses bilaterally. Psychiatric: No signs of depression or anxiety Laboratory data: Please see below. Microbiology: Please see below. Blood Cx show NGTD x 48 hours. Imaging: No new imaging today. Assessment/Plan: 66 yo F with PMH significant for Acute Hypoxic Respiratory Failure and SOB secondary to COPD exacerbation. 1) Acute Hypoxic Respiratory Failure/SOB 2/2 COPD Exacerbation: Satting today at 94% on room air and has been off of 2 L nasal cannula. Patient wanting to go home JEANA, however, patient receiving dialysis today and we need to evaluate oxygen saturation after another trial of walk test tomorrow. Unfortunately, we will not be able to discharge her today due to dialysis today and until she can be weaned off of oxygen. Will continue current management. Continue aggressive pulmonary toilet, acapella, doxycycline, breathing treatments with duonebs scheduled q6 hours and q2 hours PRN SOB/wheezing, continue symbicort 2 puffs BID. Aim for O2 saturation of 90-92%. Will switch solumedrol 40 mg q8 hours daily to prednisone 40 mg PO BID today and begin to taper. 2) Leukocytosis: Improved with WBC of 10.9 from 14.8 today. Patient afebrile and not c/o of any symptoms. Continue to monitor for fevers, chills, and O2 saturations. Continue doxycycline. Blood cx show NGTD x 48 hours. Sputum cultures ordered today and pending. 3) ESRD on HD 2/2 Polycystic Kidney Disease (MWF schedule): Patient receiving hemodialysis today. Uses L forearm graft. Nephrology is following patient. Follow with Nephrology recommendations. Appreciate input. 4) Hypertension: Continue atenolol and losartan with hold parameters. 5) Heartburn: began tums and protonix 20 mg qdaily. Due to potential risks of prednisone in elderly, we will not continue protonix on discharge. 6) Hypothyroidism: Continue Synthroid. 7) Anxiety/depression: Continue Lexapro and Ativan. 8) Chronic tobacco use: Continue nicotine patch. 9) Anemia: Stable normocytic anemia. Continue to monitor H&H. Consider checking iron panel, B12, folate, and peripheral smear as outpatient. (10) Continue home medications. DVT prophylaxis: Continue heparin 5000 units q8 hours subcutaneous. GI prophylaxis: Protonix 20 mg PO qdaily. Immunizations as per protocol. VS,Fishbone, I+O VS, Fishbone, I+O Laboratory Tests 02/04/17 05:32 Anion Gap 12, Red Blood Count 3.64 L, Mean Corpuscular Volume 95.0, Mean Corpuscular Hemoglobin 29.5, Mean Corpuscular Hemoglobin Concent 31.0 L, Red Cell Distribution Width 16.4 H, Neutrophils (%) (Auto) 93.2 H, Lymphocytes (%) ( Auto) 4.5 L, Monocytes (%) (Auto) 1.9, Eosinophils (%) (Auto) 0.1, Basophils (% ) (Auto) 0.1, Neutrophils # (Auto) 10.1 H, Lymphocytes # (Auto) 0.5 L, Monocytes # (Auto) 0.2, Eosinophils # (Auto) 0.0, Basophils # (Auto) 0.0 Vital Signs Date Time Temp Pulse Resp B/P Pulse Ox O2 Delivery O2 Flow Rate FiO2 02/04/17 06:00 98.5 68 16 145/78 94 Room Air 02/03/17 14:00 2.0 I&O- Last 24 Hours up to 6 AM 02/04/17 06:00 Intake Total 1200 ml Output Total 0 ml Balance 1200 ml GME ATTESTATION GME ATTESTATION My preceptor for this patient encounter was Dr. Kenneth Ulloa, and was physically present in the building during the encounter and was fully available. As needed , all aspects of the patient interview, examination, medical decision making process, and medical care plan development were reviewed and approved by the preceptor. Preceptor is aware and concurs with the plan as stated in the body of this note and will attest to such by his/her cosignature. AKRLIE CHRIS OGME-1 Feb 04, 2017 10:57 KARLIE CHRISAR-1 Feb 04, 2017 10:57
[2017-02-04] MEDS: LOSARTAN 50 MG TAB PO SCH (13:30)
[2017-02-04] MEDS: PANTOPRAZOLE 20 MG TAB PO SCH (13:32)
[2017-02-04] MEDS: MINOXIDIL 2.5 MG TAB PO SCH (13:33)
[2017-02-04] MEDS: ATENOLOL 25 MG TAB PO SCH (13:33)
[2017-02-04 14:00] VITALS: BP 132/72
[2017-02-04] MEDS ORDERED: predniSONE 20 MG TAB PO ONE (14:00)
[2017-02-04] MEDS: ESCITALOPRAM OXALATE 10 MG TAB (LEXAPRO) PO SCH (20:27)
[2017-02-04] MEDS: predniSONE 20 MG TAB PO SCH (20:27)
[2017-02-04 22:00] VITALS: BP 134/68
[2017-02-05] MEDS: IPRATROPIUM 0.5MG/ALBUTEROL 2.5MG INH SOL UD 3ML (DUONEB)(J7620) NEB SCH ×3 (01:26→15:00)
--- NOTE | 2017-02-05 01:42 | IPN ---
DATE: 02/04/2017 SUBJECTIVE: This is a 66-year-old female who is seen and examined in the dialysis room. Yesterday, she ambulated with nursing staff and desatted down to 86% on room air. She then agreed to stay for further treatment. REVIEW OF SYSTEMS: Denies any worsening shortness of breath. No chest pain, palpitations, fevers, chills, difficulty with swallowing, cough, hemoptysis, nausea, vomiting, diarrhea, constipation. OBJECTIVE: VITAL SIGNS: Blood pressure 145/78, heart rate 68, temperature 98.5, respiratory rate 16, pulse oximetry 94% on room air. Intake and output last 24 hours: 1560; no output documented. One bowel movement documented yesterday. Weight is documented as 79.9, but yesterday was 51.3 kg, likely inaccurate. GENERAL: Lying in dialysis bed at flat angle, comfortable in no acute distress. She is chronically ill-appearing, tired, cachectic, appears older than stated age. HEENT: Normocephalic, atraumatic. Moist oral mucosa. Dentures in place. Some thrush in the oral mucosa. NECK: Supple. Trachea midline. No jugular venous distention (JVD) at flat angle. CHEST: Breath sounds diminished with persistent crepitations and wheezing throughout all lung louis. HEART: Regular rate and rhythm, distant sounding, but normal S1-S2. Could not appreciate murmurs, rubs, or gallops. ABDOMEN: Soft, nontender, nondistended. Bowel sounds present. No guarding or rebound. Persistent multiple palpable cysts by her right abdomen compared to left. EXTREMITIES: No pedal edema. Pedal pulses present bilaterally. Right atrioventricular (AV) fistula is currently working. NEUROLOGIC: No focal deficits, alert, awake and oriented times three. PSYCHIATRIC: Cooperative, normal affect. LABORATORY DATA: WBC 10.9, improved from yesterday of 14.8, hemoglobin 10.7, hematocrit 34.6, platelets 232. Sodium 138, potassium 4, chloride 101, carbon dioxide 25, BUN 6, creatinine 5.8, glucose 132, calcium 7.9, albumin 2.9. Blood cultures negative after 48 hours. MEDICATIONS: She was started on fluconazole yesterday. IMPRESSION: Ms. Blackmon is a 66-year-old female with past medical history of end-stage renal disease secondary to polycystic kidney disease presented with shortness of breath found to have chronic obstructive pulmonary disease (COPD) exacerbation. PLAN: 1. Acute hypoxic respiratory failure secondary to COPD exacerbation. She has been on Solu-Medrol since 02/01/2017. She is now switched to prednisone. She continues to have wheezing today. She was also hypoxic with ambulation yesterday. We will continue with dialysis, hopefully her breathing will improve. She continues to be anxious about going home to smoke. She is on doxycycline day three and nebulizer treatments. 2. End-stage renal disease on hemodialysis. This is secondary to polycystic kidney disease. Tolerating dialysis well. Her dialysis days are Tuesday, Tuesday, and Tuesday. 3. Hypertension. Blood pressure is within reasonable range. She is on her home dose of minoxidil 2.5 mg daily, Cozaar 100 mg daily, and atenolol 25 mg daily. 4. Polycystic kidney disease. She is on hemodialysis as mentioned above. 5. COPD exacerbation. Steroids and doxycycline currently being managed by primary team. My preceptor for this patient encounter was Dr. Asa Mena. The preceptor was physically present in the building during the encounter and was fully available as needed. All aspects of the patient interview, examination, medical decision making process, and medical care plan development were reviewed and approved by the preceptor. The preceptor is aware and concurs with the plan as stated in the body of this note and will attest to such by his co-signature. BRANDT
[2017-02-05] MEDS: LEVOTHYROXINE 0.137 MG TAB (137MCG) PO SCH (05:32)
[2017-02-05] MEDS: HEPARIN SOD (PORCINE) 5000 UNITS/ML VIAL SC SCH ×2 (05:32→13:04)
[2017-02-05 06:00] VITALS: BP 132/81
[2017-02-05 06:26] LABS: LARGE UNSTAINED CELL % 0.5 % (0.0-4.0); LYMPH # 0.5 K/mm3 (1.5-4.5); LYMPH % 5.6 % (24.0-44.0); MEAN CORPUSCULAR HEMOGLOBIN 29.6 pg (27.0-33.0); MEAN CORPUSCULAR HGB CONC 31.2 g/dl (32.0-36.5); MEAN CORPUSCULAR VOLUME 94.8 fl (80.0-96.0); MONO # 0.3 K/mm3 (0.0-0.8); MONO % 3.7 % (0.0-5.0); NEUTROPHILS # 8.2 K/mm3 (1.8-7.7); NEUTROPHILS % 90.2 % (36.0-66.0); PLATELET COUNT, AUTOMATED 237 k/mm3 (150-450); RED CELL DISTRIBUTION WIDTH 16.3 % (11.5-14.5)
[2017-02-05 06:46] LABS: ALBUMIN 2.9 GM/DL (3.2-5.2); CALCIUM LEVEL 8.2 MG/DL (8.8-10.2); CREATININE FOR GFR 4.16 MG/DL (0.55-1.02); GLOMERULAR FILTRATION RATE 11.3 (>45); MAGNESIUM LEVEL 1.9 MG/DL (1.8-2.4); PHOSPHORUS LEVEL 2.6 MG/DL (2.5-4.9); POTASSIUM SERUM 3.8 MEQ/L (3.5-5.1)
[2017-02-05] MEDS: SYMBICORT 160/4.5MCG INHALER 6GM INH SCH (08:45)
[2017-02-05] MEDS: NICOTINE 14 MG/24 HR TRANSDERMAL TD SCH (10:09)
[2017-02-05] MEDS: LORazepam 1 MG TAB PO SCH (10:10)
[2017-02-05] MEDS: DOXYCYCLINE HYCLATE 100 MG in D5W MINI-BAG PLUS 100 ML IV SCH (10:10)
[2017-02-05] MEDS: predniSONE 20 MG TAB PO SCH (10:11)
[2017-02-05] MEDS: MINOXIDIL 2.5 MG TAB PO SCH (10:11)
[2017-02-05] MEDS: ASPIRIN 81 MG ENTERIC TAB PO SCH (10:11)
[2017-02-05] MEDS: LOSARTAN 50 MG TAB PO SCH (10:11)
[2017-02-05 10:12] VITALS: BP 132/81
[2017-02-05] MEDS: FLUCONAZOLE 100 MG TAB PO SCH (10:12)
[2017-02-05] MEDS: PANTOPRAZOLE 20 MG TAB PO SCH (10:12)
[2017-02-05] MEDS: ATENOLOL 25 MG TAB PO SCH (10:12)
[2017-02-05 14:00] VITALS: BP 132/75
[2017-02-05] MEDS ORDERED: FLUC100T PO (14:05)
[2017-02-05] MEDS ORDERED: PRED10TA PO (14:16)
[2017-02-05] MEDS ORDERED: DOXY100C PO ×2 (14:18→14:27)
--- NOTE | 2017-02-05 17:14 | DS.PDOC ---
Discharge Summary General Date of Admission Feb 01, 2017 at 19:30 Date of Discharge Feb 05, 2017 Primary Care Physician: Sarah Pickard Attending Physician: JOSEF ULLOA MD Specialist/Consultants Involve: Asa Mena MD Discharge Summary PCP: Sarah Pickard Attending Physician: Dr. Josef Ulloa Consults: Dr. Asa Mena Discharge diagnosis: Acute hypoxic respiratory failure and shortness of breath secondary to COPD exacerbation Secondary diagnosis: End-stage renal disease on hemodialysis secondary to polycystic kidney disease Leukocytosis Oral Thrush Hypertension Heartburn Hypothyroidism Anxiety Depression Chronic tobacco use Anemia Hospital course: This is a 66-year-old female who presented to the emergency department on 02/01/2017 for a greater than 1 week history of progressively worsening shortness of breath. Patient reported that ambulation exacerbated her shortness of breath. She had also developed a cough productive of thick clear sputum without any hemoptysis. She had denied leg swelling, orthopnea, chest pain, palpitations, fevers, chills. She admits to having frequent nighttime awakenings. Prior to coming to the ED, patient reports that she had been able to use her inhaler 3-4 times daily and gain relief but now, she was not able to obtain the same amount of relief with the inhaler. She previously also had a recent COPD exacerbation and was hospitalized in November 2016 at [facility] as well. She sees pulmonology and Dr. Gutiérrez as an outpatient. Her symptoms began on January 25 when she was just recently taken off of her oral steroids after which her symptoms worsen. In the ER, the patient had failed to improve with breathing treatments and a chest x-ray was done which did not reveal any acute infiltrates. During the hospital stay, Solu- Medrol was begun with nebulizer breathing treatments along with doxycycline, Acapella, and aggressive pulmonary toilet. Patient had an elevated white blood cell count of 10.1. Blood cultures were obtained which showed no growth to date after 72 hours. Patient's BUN was 28 and creatinine is 5.34 on date of admission due to end-stage renal disease secondary to polycystic kidney disease. Nephrology Dr. Mena's consulted and managed her renal disease. The patient had received inpatient dialysis on a Tuesday schedule. She did not have any acute complications with dialysis and remains stable. The patient's home medications were continued. She remained afebrile throughout hospital stay. Patient's oxygen saturation on admission was 88% on 2 L nasal cannula. Patient was initially placed on 2 L of oxygen via nasal cannula and and sat in the 90s throughout the hospital stay. Eventually, the patient's oxygen was weaned off and she sided mid 90s on room air. She was tapered off of her Solu-Medrol and switched to by mouth prednisone. On February 03 the patient had a walk test and had desaturated down to 86%. We could not send her home at that time even though the patient reported that she was feeling well and wants to go home. We had also began tums and protonix 20 mg daily for heartburn symptoms. On February 04, the patient received dialysis, and we were not able to discharge her on that day. She also desaturated again and became hypoxic on February 04 as well during ambulation. Patient was given DVT ppx with heparin subcutaneous q8 hours. Today, patient reported no acute complaints, stated she was feeling well, and satted 92% on room air during walk test. The patient is clinically and hemodynamically stable and has improved. Progress note on date of discharge: 02/05/17 Subjective: 66 yo F was seen and examined at bedside. She denied dizziness, blurred vision, fevers, chills, chest pain, SOB, nausea, vomiting, diarrhea, constipation, abdominal pain, weakness, fatigue, rashes/lesions, urinary incontinence, dysuria, hematuria, hematochezia. She received dialysis yesterday. Reports no acute events overnight. Objective: Vitals: T 97.8, P 63, RR 15, BP 132/81 (98), Pulse Ox: 96% on room air. General: Pleasant thin cachectic elderly female resting comfortably in bed. Patient awake, alert and oriented, verbal and able to answer questions appropriately. She does not appear to be in any acute distress. +Hard of hearing. Sclera Nonicteric. No external nasal lesions. Endocrinology: No thyromegaly. Neck: Supple. No cervical LAD bilaterally. Heart: Regular rate and rhythm, normal S1-S2. No murmurs, rubs, clicks or gallops Lungs: Diminished breath sounds in all lung louis with greater expiratory > inspiratory ratio. Improved air entry from previous however. Positive end expiratory wheezes. No rales or rhonchi. No accessory muscle usage noted. Abdomen: Active bowel sounds. Abdomen is a bit rigid, nontender, nondistended, + dense multiple cystic area appreciated on R side of abdomen which is consistent with polycystic kidney. Extremities: No clubbing, cyanosis, edema. Without amputations/deformities. No pedal edema. MSK: Normal ROM. Vascular: +2 radial and dorsalis pedis pulses bilaterally. Psychiatric: No signs of depression or anxiety Laboratory data: Please see below. Microbiology: Please see below. Blood Cx show NGTD x 72 hours. Imaging: No new imaging today. Assessment: 66 yo F with PMH significant for Acute Hypoxic Respiratory Failure and SOB secondary to COPD exacerbation. Plan/Disposition: Discharge home today with oral prednisone taper, 2 more days of doxycycline, and 4 more days of fluconazole. Follow-up: With PCP Sarah Pickard within 1 week and nephrology with Dr. Mena within 1 week. Activity: As tolerated. Diet: Renal Diet. Medications on discharge: Activella 1-0.5 mg 1 tab PO daily Ventolin HFA 2 Puff/8 Gm Aers INH Q4H PRN SOB Albuterol Sulfate 2.5 Mg/3Ml Nebu INH Q4H PRN SOB Aspirin 81 Mg tab PO daily Atenolol 25 mg PO daily Budesonide/Formoterol 60 Puff/Inhaler Aers (Symbicort 160-4.5 Mcg/Act) 2 Puff INH BID Doxycycline Hyclate 100 Mg PO Cap PO BID (only 2 days) Escitalopram Oxalate 10 Mg tab PO QHS Fluconazole 100 Mg tab PO daily (only 4 days) Incruse Ellipta 62.5 Mcg/INH daily Ipratropium [place] 17 Mcg/Act Aer (Atrovent Hfa) 2 puffs INH QID SOB Levothyroxine Sodium 137 Mcg tab (Synthroid) 137 Mcg PO daily Lorazepam 1 Mg tab PO BID Lorazepam 1 Mg tab PO daily PRN Anxiety Losartan Potassium 100 Mg tab PO daily Minoxidil 2.5 Mg tab PO daily Prednisone 10 Mg tab PO as directed (taper at discharge) Arielle-Roby Rx 1 Mg 1 tab PO daily Time spent on discharge: 35 minutes. Vital Signs/I&Os Vital Signs Date Time Temp Pulse Resp B/P Pulse Ox O2 Delivery O2 Flow Rate FiO2 02/05/17 14:00 99.3 63 16 132/75 96 Room Air 02/05/17 09:00 2.0 I&O- Last 24 Hours up to 6 AM 02/05/17 06:00 Intake Total 1680 ml Output Total 1550 ml Balance 130 ml Laboratory Data Labs 24H Laboratory Tests 2 02/05/17 05:28: Albumin 2.9L, Blood Urea Nitrogen 43H, Creatinine 4.16H, Sodium Level 140, Potassium Level 3.8, Chloride Level 103, Carbon Dioxide Level 26, Anion Gap 11, White Blood Count 9.0, Red Blood Count 3.68L, Hemoglobin 10.9L, Hematocrit 34.9L , Mean Corpuscular Volume 94.8, Mean Corpuscular Hemoglobin 29.6, Mean Corpuscular Hemoglobin Concent 31.2L, Red Cell Distribution Width 16.3H, Platelet Count 237, Neutrophils (%) (Auto) 90.2H, Lymphocytes (%) (Auto) 5.6L, Monocytes (%) (Auto) 3.7, Eosinophils (%) (Auto) 0.0, Basophils (%) (Auto) 0.0, Neutrophils # (Auto) 8.2H, Lymphocytes # (Auto) 0.5L, Monocytes # (Auto) 0.3, Eosinophils # (Auto) 0.0, Basophils # (Auto) 0.0, Calcium Level 8.2L, Glomerular Filtration Rate 11.3L, Large Unclassified Cells # 0.0, Large Unclassified Cells % 0.5, Magnesium Level 1.9, Phosphorus Level 2.6# CBC/BMP Laboratory Tests 02/05/17 05:28 Anion Gap 11, Red Blood Count 3.68 L, Mean Corpuscular Volume 94.8, Mean Corpuscular Hemoglobin 29.6, Mean Corpuscular Hemoglobin Concent 31.2 L, Red Cell Distribution Width 16.3 H, Neutrophils (%) (Auto) 90.2 H, Lymphocytes (%) ( Auto) 5.6 L, Monocytes (%) (Auto) 3.7, Eosinophils (%) (Auto) 0.0, Basophils (% ) (Auto) 0.0, Neutrophils # (Auto) 8.2 H, Lymphocytes # (Auto) 0.5 L, Monocytes # (Auto) 0.3, Eosinophils # (Auto) 0.0, Basophils # (Auto) 0.0 Microbiology [facility] 02/01/17 Blood Culture - Preliminary, Resulted No Growth after 72 hours. All specime... Discharge Medications Scheduled (Activella 1-0.5 mg) 1 Tab Tab 1 TAB PO DAILY (Reported) (Arielle-Roby Rx 1 mg) 1 Tab Tab 1 TAB PO DAILY (Reported) (Incruse Ellipta) 62.5 Mcg/Inh Inh 62.5 MCG INH DAILY (Reported) Aspirin (Aspirin 81) 81 Mg Tab 81 MG PO DAILY (Reported) Atenolol (Atenolol) 25 Mg Tab 25 MG PO DAILY (Reported) Budesonide/Formoterol (Symbicort 160-4.5 Mcg/Act) 60 Puff/Inhaler Aers 2 PUFF INH BID (Reported) Doxycycline Hyclate (Doxycycline Hyclate) 100 Mg Cap 100 MG PO BID Escitalopram Oxalate (Lexapro) 10 Mg Tab 10 MG PO QHS (Reported) Fluconazole (Fluconazole) 100 Mg Tab 100 MG PO DAILY Levothyroxine Sodium (Synthroid) 137 Mcg Tab 137 MCG PO DAILY (Reported) Lorazepam (Lorazepam) 1 Mg Tab 1 MG PO BID (Reported) Losartan Potassium (Losartan Potassium) 100 Mg Tab 100 MG PO DAILY (Reported) Minoxidil (Minoxidil) 2.5 Mg Tab 2.5 MG PO DAILY (Reported) Prednisone (Prednisone) 10 Mg Tab 10 MG PO ASDIRECTED Scheduled PRN Albuterol Sulfate (Ventolin Hfa) 200 Puff/8 Gm Aers 2 PUFF INH Q4H PRN PRN SHORTNESS OF BREATH (Reported) Albuterol Sulfate (Albuterol Sulfate) 2.5 Mg/3 Ml Nebu 2.5 MG INH Q4H PRN PRN SHORTNESS OF BREATH (Reported) Ipratropium [place]ambra (Atrovent Hfa) 17 Mcg/Act Aer 2 PUFFS INH QID PRN PRN SHORTNESS OF BREATH (Reported) Lorazepam (Lorazepam) 1 Mg Tab 1 MG PO DAILY PRN PRN ANXIETY (Reported) Allergies Coded Allergies: Lisinopril (Verified Allergy, Severe, tongue swelling, 12/05/14) Codeine (Unverified Adverse Reaction, Mild, GI UPSET, 01/14/16) GME ATTESTATION GME ATTESTATION My preceptor for this patient encounter was Dr. Josef Ulloa, and was physically present in the building during the encounter and was fully available. As needed , all aspects of the patient interview, examination, medical decision making process, and medical care plan development were reviewed and approved by the preceptor. Preceptor is aware and concurs with the plan as stated in the body of this note and will attest to such by his/her cosignature. KARLIE CHRIS OGME-1 Feb 05, 2017 17:14
--- NOTE | 2017-02-06 16:48 | IPN ---
DATE: 02/05/2017 SUBJECTIVE: This is a 66-year-old female who was seen and examined in medical/surgical floor. Yesterday underwent hemodialysis well without any complications. Had a total of 1.5 liters removed. No reported events overnight. Her steroids are currently being tapered. REVIEW OF SYSTEMS: Denies any chest pain, shortness of breath, palpitations, nausea, vomiting, abdominal pain, fever, chills, productive cough, headache. Anxious to go home. OBJECTIVE: VITAL SIGNS: Blood pressure 132/81, heart rate 63, temperature 97.8, respiration rate 15, pulse oximetry 96% on room air, this is improved compared to yesterday, she was on nasal cannula. Intake and output last 24 hours: 1680 and 1550. Weight is 57.3 kg, but yesterday was 80, question accuracy of weight. PHYSICAL EXAMINATION: GENERAL: Sitting in bed, comfortable, no acute distress. Alert, awake, oriented times three. Chronically ill-appearing, cachectic, appears older than stated age. HEENT: Normocephalic, atraumatic. Moist oral mucosa. Dentures in place. NECK: Supple, trachea midline. CHEST: Symmetric chest rise, diminished with occasional crepitation and wheezing in lung louis, somewhat improved compared to yesterday. HEART: Regular rate and rhythm, distant sounding, but normal S1, S2. Did not appreciate murmurs, rubs, or gallops. ABDOMEN: Soft, nontender, nondistended, protuberant, but no guarding, no rebound, no peritoneal signs. Persistent multiple palpable cysts in her abdomen. EXTREMITIES: No pedal edema. Pedal pulses present bilaterally. NEUROLOGIC: No focal deficits appreciated. Alert, awake, oriented times three. PSYCHIATRIC: Cooperative and normal affect. LABORATORY DATA: WBC 9, improved from yesterday at 10.9, hemoglobin 10.9, hematocrit 34.9, platelets 237. Sodium 140, potassium 3.8, chloride 103, carbon dioxide 26, BUN 43, creatinine 4.16, improved from yesterday at 5.8, glucose 118, calcium 8.2, phosphorous 2.6, magnesium 1.9, albumin 2.9. Blood cultures negative after 72 hours. MEDICATIONS: Reviewed, showing patient currently now on prednisone tapered dose. IMPRESSION/PLAN: Ms. Blackmon is a 66-year-old female with past medical history of end-stage renal disease secondary to polycystic kidney disease, presented with shortness of breath, found to have chronic obstructive pulmonary disease (COPD) exacerbation. 1. Acute hypoxic respiratory failure secondary to chronic obstructive pulmonary disease (COPD) exacerbation. Previously on Solu-Medrol, now on prednisone. Her breathing appears to be more comfortable. She is on doxycycline and steroid with nebulizer treatment per primary team. 2. End-stage renal disease on hemodialysis. This is secondary to polycystic kidney disease. Tolerated dialysis well yesterday. Her dialysis days are Tuesday, Tuesday, Tuesday, her next dialysis will be Tuesday. 3. Hypertension. Blood pressure continues to be within reasonable range. She is on her home dose minoxidil 2.5 daily, Cozaar 100 mg daily, and atenolol 25 mg daily. 4. Polycystic kidney disease. She is dialysis dependent. 5. Chronic obstructive pulmonary disease (COPD) exacerbation. Plan is per primary team as above. From a renal standpoint, the patient can be discharged whenever cleared by primary team. My preceptor for this patient encounter was Dr. Garces. The preceptor was physically present in the building during the encounter and was fully available. As needed, all aspects of the patient interview, examination, medical decision making process, and medical care plan development were reviewed and approved by the preceptor. The preceptor is aware and concurs with the plan as stated in the body of this note and will attest to such by his cosignature. BRANDT
== END 2017-02-05 17:25 | disposition home or self-care (01) | DRG 190 ==
LOC: M ED 16:12 → M ED INP 19:30 → M MSPAV 20:21
PROVIDERS: ADMIT Internal Medicine; ATTEND Internal Medicine
PROC: 5A1D00Z (ICD-10-PCS; principal; 2017-02-02)
DX: J44.1 Chronic obstructive pulmonary disease with (acute) exacerbation (principal); J96.01 Acute respiratory failure with hypoxia; N18.6 End stage renal disease; Q61.3 Polycystic kidney, unspecified; B37.0 Candidal stomatitis; I12.0 Hypertensive chronic kidney disease with stage 5 chronic kidney disease or end stage renal disease; Z99.2 Dependence on renal dialysis; D64.9 Anemia, unspecified; F41.8 Other specified anxiety disorders; F17.210 Nicotine dependence, cigarettes, uncomplicated; E03.9 Hypothyroidism, unspecified; D72.829 Elevated white blood cell count, unspecified; R12 Heartburn; Z79.82 Long term (current) use of aspirin; Z79.899 Other long term (current) drug therapy; Z88.8 Allergy status to other drugs, medicaments and biological substances; Z88.6 Allergy status to analgesic agent

== ENCOUNTER 2017-04-13 05:26 | Emergency (ER) | payer OTHER, MEDICAID ==
[~2017-04-13] VITALS: Ht 157.5 cm; Wt 45.4 kg
[~2017-04-13 05:26] MED LIST changes: +DOXY100C PO; +FLUC100T PO; +SYMB16INH INH
[2017-04-13 06:11] LABS: VENOUS BASE EXCESS -0.6 (-2.0-2.0); VENOUS O2 SATURATION 71.7 % (60.0-80.0); VENOUS PARTIAL PRESSURE CO2 35.9 mmHg (38.0-50.0); VENOUS PARTIAL PRESSURE O2 35.2 mmHg (30.0-50.0); VENOUS STANDARD HCO3 23.5 MEQ/L; VENOUS TOTAL CO2 24.5 MEQ/L (24.0-28.0)
[2017-04-13 06:14] LABS: BASO % 0.4 % (0.0-1.0); EOS # 0.7 K/mm3 (0.0-0.50); EOS % 6.2 % (0.0-3.0); LARGE UNSTAINED CELL # 0.2 K/mm3 (0.0-0.4); LARGE UNSTAINED CELL % 2.1 % (0.0-4.0); LYMPH # 1.5 K/mm3 (1.5-4.5); LYMPH % 13.8 % (24.0-44.0); MEAN CORPUSCULAR HEMOGLOBIN 30.8 pg (27.0-33.0); MEAN CORPUSCULAR HGB CONC 32.2 g/dl (32.0-36.5); MEAN CORPUSCULAR VOLUME 95.7 fl (80.0-96.0); MONO # 0.5 K/mm3 (0.0-0.8); MONO % 4.4 % (0.0-5.0); NEUTROPHILS # 8.2 K/mm3 (1.8-7.7); NEUTROPHILS % 73.1 % (36.0-66.0); PLATELET COUNT, AUTOMATED 214 k/mm3 (150-450); RED CELL DISTRIBUTION WIDTH 18.1 % (11.5-14.5); WHITE BLOOD COUNT 11.2 K/mm3 (4.0-10.0)
[2017-04-13] MEDS ORDERED: methylPREDNISolone INJ 125 MG/2 ML VIAL (J2930) IV ONE (06:15)
[2017-04-13 06:22] LABS: ANION GAP 10 MEQ/L (8-16); BLOOD UREA NITROGEN 24 MG/DL (7-18); CALCIUM LEVEL 8.3 MG/DL (8.8-10.2); CARBON DIOXIDE LEVEL 28 MEQ/L (21-32); CHLORIDE LEVEL 103 MEQ/L (98-107); CREATININE FOR GFR 4.83 MG/DL (0.55-1.02); GLOMERULAR FILTRATION RATE 9.5 (>45); GLUCOSE, FASTING 79 MG/DL (80-110); POTASSIUM SERUM 3.6 MEQ/L (3.5-5.1); SODIUM LEVEL 141 MEQ/L (136-145)
[2017-04-13] MEDS: IPRATROPIUM 0.5MG/ALBUTEROL 2.5MG INH SOL UD 3ML (DUONEB)(J7620) NEB PRN ×3 (06:22→06:41)
--- NOTE | 2017-04-13 07:59 | REP ---
Clinical: Dyspnea. Cough. Comparison: 02/01/2017 . Technique: PA and lateral. Findings: The mediastinum and cardiac silhouette are normal. Subtle basilar atelectasis cannot be excluded and requires clinical correlation. Chronic stable changes are identified. No effusion. No pneumothorax. Skeletal structures stable. Impression: No acute cardiopulmonary process. Cannot exclude trace basilar atelectasis. Signed by Colin Mathew MD 04/13/2017 07:51 A
[2017-04-13 09:28] VITALS: O2SAT 86
[2017-04-13] MEDS ORDERED: [UNRECOGNIZED DRUG - OTHER] (10:31)
[2017-04-13] MEDS ORDERED: Home Oxygen (10:33)
[2017-04-13 10:45] VITALS: BP 185/100
--- NOTE | 2017-04-13 14:27 | ECGEPIP ---
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
== END 2017-04-13 11:05 | disposition home or self-care (01) ==
LOC: M ED 07:27
DX: J44.9 Chronic obstructive pulmonary disease, unspecified (principal); N18.6 End stage renal disease; Z99.2 Dependence on renal dialysis; F17.200 Nicotine dependence, unspecified, uncomplicated; Z79.899 Other long term (current) drug therapy; Z79.52 Long term (current) use of systemic steroids; Z88.5 Allergy status to narcotic agent; Z88.8 Allergy status to other drugs, medicaments and biological substances
CPT/HCPCS: 36600; 71020; 80048; 82550; 82553; 82803; 83880; 84484; 85025; 87040; 93005; 93041; 94640; 96374; 99285; J2930

== ENCOUNTER 2017-04-25 14:23 | Emergency (ER) | payer OTHER, MEDICAID ==
[~2017-04-25] VITALS: Ht 157.5 cm; Wt 45.8 kg
[~2017-04-25 14:23] MED LIST changes: +Home Oxygen; +[UNRECOGNIZED DRUG - OTHER]
[2017-04-25 16:15] LABS: MEAN CORPUSCULAR HEMOGLOBIN 30.6 pg (27.0-33.0); MEAN CORPUSCULAR HGB CONC 32.3 g/dl (32.0-36.5); MEAN CORPUSCULAR VOLUME 94.9 fl (80.0-96.0); PLATELET COUNT, AUTOMATED 233 k/mm3 (150-450); RED CELL DISTRIBUTION WIDTH 17.6 % (11.5-14.5); WHITE BLOOD COUNT 17.4 K/mm3 (4.0-10.0)
--- NOTE | 2017-04-25 16:19 | REP ---
Chest x-ray: Two views: History: Dyspnea and cough. Comparison chest x-ray: 04/13/2017. Findings: Today's views are exposed at a somewhat lesser level of inspiration. EKG monitoring electrodes and oxygen delivery tubing are seen. Heart is not enlarged. The aorta somewhat tortuous. Pleural angles are sharp. No infiltrate is seen. Impression: No acute disease. Signed by Manjit Cruz MD 04/25/2017 04:49 P
[2017-04-25 16:21] LABS: ANISOCYTOSIS 1+
[2017-04-25 16:23] LABS: ALBUMIN 3.2 GM/DL (3.2-5.2); BILIRUBIN,DIRECT 0.1 MG/DL (0.0-0.2); BILIRUBIN,TOTAL 0.6 MG/DL (0.2-1.0); CREATININE FOR GFR 5.49 MG/DL (0.55-1.02); GLOMERULAR FILTRATION RATE 8.2 (>45); POTASSIUM SERUM 4.4 MEQ/L (3.5-5.1); TOTAL PROTEIN 6.4 GM/DL (6.4-8.2)
[2017-04-25] MEDS ORDERED: methylPREDNISolone INJ 125 MG/2 ML VIAL (J2930) IV ONE (16:45)
[2017-04-25] MEDS ORDERED: IPRATROPIUM 0.5MG/ALBUTEROL 2.5MG INH SOL UD 3ML (DUONEB)(J7620) NEB ONE ×3 (16:45→19:15)
[2017-04-25] MEDS ORDERED: PERCOCET 5MG/325MG TAB PO ONE (16:45)
[2017-04-25 17:13] LABS: ABG BASE EXCESS -1.2 (-2.0-2.0); ABG PARTIAL PRESSURE CO2 36.9 mmHg (35.0-45.0); ABG PARTIAL PRESSURE O2 107.4 mmHg (75.0-100.0); ABG STANDARD HCO3 23.5 MEQ/L (22.0-26.0); ABG TOTAL CO2 24.2 MEQ/L (23.0-31.0); ABG pH (ARTERIAL) 7.413 UNITS (7.350-7.450)
--- NOTE | 2017-04-25 17:50 | REP ---
CT of the chest for back pain. The study is requested without IV contrast. Comparison is a 11/26/2015. There are no acute infiltrates or effusions. There is dependent atelectasis with the patient supine on the scanning table. No masses are identified. There is no mediastinal adenopathy. The study is insensitive for hilar adenopathy in the absence of IV contrast. The ascending thoracic aorta measures 4.1 cm in diameter. Mildly dilated. This is not significantly changed. Cardiac size is borderline enlarged. No pericardial effusion. Impression: No acute cardiopulmonary findings. Mildly dilated aortic root, unchanged. Cardiac size is borderline enlarged. Signed by Cristopher Fry MD 04/25/2017 05:41 P
--- NOTE | 2017-04-25 18:00 | REP ---
Blackmon there are a CT abdomen pelvis emergency room request: Studies requested without IV or bowel contrast: Comparison is 05/11/2016. Innumerable hepatic and renal cysts are again noted compatible with polycystic renal disease. The appearance is unchanged from the prior study. I would able to identify the gallbladder as a distinct structure. The pancreas is distorted by the numerous hepatic and renal cysts. The adrenals are obscured. The unenhanced abdominal aorta is unremarkable except for occasional calcified atheroma. There is no bowel distension or obstruction. Pelvis: There is no ascites. The uterus and adnexa are grossly unremarkable. There is internal fixation of the right hip. The bladder is grossly unremarkable. There is degenerative disc disease throughout the lumbar spine, most advanced at L 03/04. This is unchanged. The sacrum and pelvis are unremarkable. Upon review of the CT of the chest. There is grade 1 compression deformity of the T7 vertebral body as a change from 11/26/2015. Impression: Polycystic renal disease with of multiple accompanying hepatic cysts, unchanged from multiple prior studies. Otherwise, essentially negative CT study of the abdomen pelvis. However, compression deformity of the T7 vertebral body is noted upon review of the chest CT. Signed by Cristopher Fry MD 04/25/2017 05:51 P
[2017-04-25] MEDS ORDERED: MORPHINE 2 MG/ML 1ML SYRINGE IV ONE (18:15)
[2017-04-25 20:52] VITALS: O2SAT 87
[2017-04-25] MEDS ORDERED: PERC5TAB6 PO (21:09)
[2017-04-25 21:13] VITALS: BP 158/82
[2017-04-25] MEDS ORDERED: OXYCODONE/APAP 5MG/325MG(BULK FOR ED) 1 TABLET PO ONE (21:15)
--- NOTE | 2017-04-26 08:16 | ECGEPIP ---
Stationary ECG Study [facility] - ED Test Date: 2017-04-25 Pat Name: CHIQUITA FELIPE Department: Room: - Gender: F Perinatal Coordinator: khushbu : 1950 Requested By: SANTINO Luna Order Number: [id number] Reading MD: Julio Grace Measurements Intervals [place] Rate: 67 P: 72 UT: 146 QRS: -26 QRSD: 77 T: 30 QT: 434 QTc: 460 Interpretive Statements SINUS RHYTHM BORDERLINE LEFT AXIS DEVIATION PRWP SIMILAR TO 04/13/17 Electronically Signed On 04-26-2017 8:15:44 EDT by Julio Grace
== END 2017-04-25 21:28 | disposition home or self-care (01) ==
LOC: M ED 15:35
DX: S22.068A Other fracture of T7-T8 thoracic vertebra, initial encounter for closed fracture (principal); J44.1 Chronic obstructive pulmonary disease with (acute) exacerbation; M54.5 Low back pain; X58.XXXA Exposure to other specified factors, initial encounter; Y92.9 Unspecified place or not applicable; Y93.9 Activity, unspecified; Y99.9 Unspecified external cause status; Z99.2 Dependence on renal dialysis; F41.9 Anxiety disorder, unspecified; F32.9 Major depressive disorder, single episode, unspecified; I10 Essential (primary) hypertension; G89.29 Other chronic pain; E03.9 Hypothyroidism, unspecified; E78.5 Hyperlipidemia, unspecified; N18.6 End stage renal disease; Q61.3 Polycystic kidney, unspecified; K76.89 Other specified diseases of liver; Z79.82 Long term (current) use of aspirin; Z79.899 Other long term (current) drug therapy; Z88.5 Allergy status to narcotic agent; Z88.8 Allergy status to other drugs, medicaments and biological substances

== ENCOUNTER 2017-04-26 23:50 | Inpatient (IN) | payer OTHER, MEDICAID ==
[~2017-04-26] VITALS: Ht 157.5 cm; Wt 44.5 kg
[~2017-04-26 23:50] MED LIST changes: +PERC5TAB6 PO
[2017-04-27] MEDS ORDERED: PRED20TA PO (00:12)
[2017-04-27] MEDS ORDERED: ONDANSETRON 4MG/2ML VIAL (J2405) IV ONE (00:30)
[2017-04-27] MEDS ORDERED: methylPREDNISolone INJ 125 MG/2 ML VIAL (J2930) IV ONE (00:30)
[2017-04-27] MEDS ORDERED: MORPHINE 4 MG/ML 1ML SYRINGE IV PRN (00:30)
[2017-04-27 01:10] LABS: VENOUS BASE EXCESS -3.5 (-2.0-2.0); VENOUS O2 SATURATION 68.6 % (60.0-80.0); VENOUS PARTIAL PRESSURE CO2 52.1 mmHg (38.0-50.0); VENOUS PARTIAL PRESSURE O2 39.1 mmHg (30.0-50.0); VENOUS STANDARD HCO3 20.9 MEQ/L; VENOUS TOTAL CO2 25.3 MEQ/L (24.0-28.0)
[2017-04-27] MEDS: IPRATROPIUM 0.5MG/ALBUTEROL 2.5MG INH SOL UD 3ML (DUONEB)(J7620) NEB SCH ×3 (01:12→01:26)
--- NOTE | 2017-04-27 01:17 | REP ---
Clinical: Dyspnea and cough . Comparison: 04/25/2017 . Findings: The mediastinum and cardiac silhouette are stable and within normal limits for portable technique. The lung louis are clear without acute consolidation, effusion, or pneumothorax. Skeletal structures are intact. Impression: Normal portable chest x-ray Signed by Colin Mathew MD 04/27/2017 01:09 A
[2017-04-27 01:28] LABS: BASO % 0.1 % (0.0-1.0); EOS % 0.2 % (0.0-3.0); LARGE UNSTAINED CELL # 0.1 K/mm3 (0.0-0.4); LARGE UNSTAINED CELL % 0.2 % (0.0-4.0); LYMPH # 0.5 K/mm3 (1.5-4.5); LYMPH % 1.7 % (24.0-44.0); MEAN CORPUSCULAR HEMOGLOBIN 30.7 pg (27.0-33.0); MEAN CORPUSCULAR HGB CONC 32.4 g/dl (32.0-36.5); MEAN CORPUSCULAR VOLUME 94.9 fl (80.0-96.0); MONO # 0.9 K/mm3 (0.0-0.8); MONO % 2.8 % (0.0-5.0); NEUTROPHILS # 28.3 K/mm3 (1.8-7.7); PLATELET COUNT, AUTOMATED 248 k/mm3 (150-450); RED CELL DISTRIBUTION WIDTH 17.4 % (11.5-14.5); WHITE BLOOD COUNT 29.7 K/mm3 (4.0-10.0)
[2017-04-27 01:38] LABS: CALCIUM LEVEL 8.4 MG/DL (8.8-10.2); CREATININE FOR GFR 6.21 MG/DL (0.55-1.02); GLOMERULAR FILTRATION RATE 7.1 (>45); POTASSIUM SERUM 4.9 MEQ/L (3.5-5.1)
[2017-04-27] MEDS ORDERED: cefTRIAXone SOD 1 GM in D5W MINI-BAG PLUS 50 ML IV ONE (02:00)
[2017-04-27 03:19] LABS: VENOUS BASE EXCESS -6.6 (-2.0-2.0); VENOUS O2 SATURATION 99.3 % (60.0-80.0); VENOUS PARTIAL PRESSURE CO2 41.7 mmHg (38.0-50.0); VENOUS PARTIAL PRESSURE O2 155.9 mmHg (30.0-50.0); VENOUS STANDARD HCO3 19.2 MEQ/L; VENOUS TOTAL CO2 20.9 MEQ/L (24.0-28.0)
[2017-04-27] MEDS ORDERED: ATEN50TA2 PO (04:48)
[2017-04-27] MEDS ORDERED: DICL1GEL3 TD (04:48)
[2017-04-27] MEDS ORDERED: PRED10TA PO (04:48)
[2017-04-27] MEDS ORDERED: ASPI81TAEC PO (04:48)
[2017-04-27] MEDS ORDERED: OXYC1TAB23 PO (04:48)
[2017-04-27] MEDS ORDERED: ALBUTEROL 90 MCG/ACT 8GM HFA INHALER INH PRN (05:30)
[2017-04-27] MEDS ORDERED: IPRATROPIUM 0.02% SOLN 0.5MG/2.5 ML NEB INH PRN (05:30)
--- NOTE | 2017-04-27 05:51 | HPEPDOC ---
General Date of Admission Apr 27, 2017 at 05:00 Primary Care Physician: Sarah Pickard Attending Physician: MARIA DEL CARMEN WHYTE DO Chief Complaint The patient is a 66-year-old female admitted with a reason for visit of Copd/ Esrd On Dialysis. Source: Patient Exam Limitations: Dementia Timing/Duration: Unsure Severity: Moderate Associated Symptoms: Unobtainable History of Present Illness 66-year-old female, history of COPD presented with progressive shortness of breath. Patient came to the emergency room 2 days back with similar symptoms and was discharged from the emergency room. Patient also complains of lower back pain. Patient's symptoms to have dementia and is unable to participate in history and physical examination. There is no family around. Records were reviewed from emergency room document. Patient denies any symptoms. Home Medications Scheduled (Activella 1-0.5 mg) 1 Tab Tab, 1 TAB PO DAILY, (Reported) (Arielle-Roby Rx 1 mg) 1 Tab Tab, 1 TAB PO DAILY, (Reported) (Incruse Ellipta) 62.5 Mcg/Inh Inh, 62.5 MCG INH DAILY, (Reported) Aspirin (Aspirin EC) 81 Mg Tabec, 81 MG PO DAILY, (Reported) Atenolol (Atenolol) 50 Mg Tab, 50 MG PO BID, (Reported) Budesonide/Formoterol (Symbicort 160-4.5 Mcg/Act) 60 Puff/Inhaler Aers, 2 PUFF INH BID, (Reported) Escitalopram Oxalate (Lexapro) 10 Mg Tab, 10 MG PO QHS, (Reported) Levothyroxine Sodium (Synthroid) 137 Mcg Tab, 137 MCG PO DAILY, (Reported) Losartan Potassium (Losartan Potassium) 100 Mg Tab, 100 MG PO DAILY, (Reported) Minoxidil (Minoxidil) 2.5 Mg Tab, 2.5 MG PO DAILY, (Reported) Prednisone (Prednisone) 10 Mg Tab, 10 MG PO DAILY, (Reported) Scheduled PRN (Diclofenac Sodium) 1 % Gel, 1 DOSE TD TID PRN for PAIN, (Reported) PATIENT USES ON UPPER BACK/SHOULDER BLADES Albuterol Sulfate (Ventolin Hfa) 200 Puff/8 Gm Aers, 2 PUFF INH Q4H PRN for SHORTNESS OF BREATH, (Reported) Albuterol Sulfate (Albuterol Sulfate) 2.5 Mg/3 Ml Nebu, 2.5 MG INH Q4H PRN for SHORTNESS OF BREATH, (Reported) Ipratropium [place] (Atrovent Hfa) 17 Mcg/Act Aer, 2 PUFFS INH QID PRN for SHORTNESS OF BREATH, (Reported) Lorazepam (Lorazepam) 1 Mg Tab, 1 MG PO DAILY PRN for ANXIETY, (Reported) Oxycodone/Acetaminophen (Oxycodone/Acetaminophen 5-325 mg) 1 Tab Tab, 1 TAB PO Q6H PRN for PAIN, (Reported) Allergies Coded Allergies: Lisinopril (Verified Allergy, Severe, tongue swelling, 04/27/17) Codeine (Unverified Adverse Reaction, Mild, GI UPSET, 04/27/17) Past Medical History Medical History COPD, back pain, ESRD Surgical History Unable to OBTAIN Family History Significant Family History: Unable to assess Social History Recent Travel/Sick Contacts: Reports: Recent travel, Recent sick contacts Psychosocial History: Dementia Review of Symptoms Other systems Unable to obtain due to dementia Physical Examination General Exam: Positive: Alert, Moderate Distress Eye Exam: Positive: PERRLA, Conjunctiva & lids normal, Negative: Sclera icteric ENT Exam: Positive: Atraumatic, Mucous membr. moist/pink, Pharynx Normal Neck Exam: Positive: Supple, Negative: JVD, thyromegaly Chest Exam: Positive: Rhonchi, Wheezing Heart Exam: Positive: Rate Normal, Regular Rhythm, Normal S1, Normal S2, Negative: Murmurs, Rubs Telemetry: Positive: No significant arrhythmia Abdomen Exam: Positive: Normal bowel sounds, Soft, Negative: Tenderness, Hepatospenomegaly Extremity Exam: Positive: Normal pulses, Negative: Clubbing, Cyanosis, Edema Skin Exam: Positive: Nl turgor and temperature, Negative: Breakdown, Lesion Neuro Exam: Positive: Normal Speech, Reflexes 2+ Psych Exam: Positive: Mood NL Vital Signs Vital Signs Date Time Temp Pulse Resp B/P (MAP) Pulse Ox O2 Delivery O2 Flow Rate FiO2 04/27/17 01:37 79 04/27/17 01:26 18 04/27/17 01:04 95 Nasal Cannula 2.0 04/27/17 00:16 04/26/17 23:51 99.1 Laboratory Data Labs 24H Laboratory Tests 2 04/27/17 00:42: White Blood Count 29.7H, Red Blood Count 3.94L, Hemoglobin 12.1, Hematocrit 37.3 , Mean Corpuscular Volume 94.9, Mean Corpuscular Hemoglobin 30.7, Mean Corpuscular Hemoglobin Concent 32.4, Red Cell Distribution Width 17.4H, Platelet Count 248, Neutrophils (%) (Auto) 95.0H, Lymphocytes (%) (Auto) 1.7L, Monocytes (%) (Auto) 2.8, Eosinophils (%) (Auto) 0.2, Basophils (%) (Auto) 0.1, Neutrophils # (Auto) 28.3H, Lymphocytes # (Auto) 0.5L, Monocytes # (Auto) 0.9H, Eosinophils # (Auto) 0.0, Basophils # (Auto) 0.0, Large Unclassified Cells % 0.2 , Large Unclassified Cells # 0.1, Blood Gas Bicarbonate Standard 20.9, Venous Blood pH 7.276L, Venous Blood Partial Pressure CO2 52.1H, Venous Blood Partial Pressure O2 39.1, Venous Blood Total Carbon Dioxide 25.3, Venous Blood HCO3 23.7 , Venous Blood Oxygen Saturation 68.6, Venous Blood Base Excess -3.5L, Anion Gap 9, Glomerular Filtration Rate 7.1L, Blood Urea Nitrogen 82H, Creatinine 6.21H, Sodium Level 132L, Potassium Level 4.9, Chloride Level 97L, Carbon Dioxide Level 26, Calcium Level 8.4L, Total Creatine Kinase 102#, Creatine Kinase MB 8.1H, Creatine Kinase MB Relative Index 7.94H, Troponin I 0.11#H 04/27/17 03:13: Blood Gas Bicarbonate Standard 19.2, Venous Blood pH 7.291L, Venous Blood Partial Pressure CO2 41.7, Venous Blood Partial Pressure O2 155.9H, Venous Blood Total Carbon Dioxide 20.9L, Venous Blood HCO3 19.6L, Venous Blood Oxygen Saturation 99.3H, Venous Blood Base Excess -6.6L, Total Creatine Kinase 88, Creatine Kinase MB 7.7H, Creatine Kinase MB Relative Index 8.75H, Troponin I 0.11H CBC/BMP Laboratory Tests 04/27/17 00:42 Red Blood Count 3.94 L, Mean Corpuscular Volume 94.9, Mean Corpuscular Hemoglobin 30.7, Mean Corpuscular Hemoglobin Concent 32.4, Red Cell Distribution Width 17.4 H, Neutrophils (%) (Auto) 95.0 H, Lymphocytes (%) (Auto ) 1.7 L, Monocytes (%) (Auto) 2.8, Eosinophils (%) (Auto) 0.2, Basophils (%) ( Auto) 0.1, Neutrophils # (Auto) 28.3 H, Lymphocytes # (Auto) 0.5 L, Monocytes # (Auto) 0.9 H, Eosinophils # (Auto) 0.0, Basophils # (Auto) 0.0, Calcium Level 8.4 L, Total Creatine Kinase 102 # Assessment/Plan 66-year-old female, history of COPD, back pain, ESRD on hemodialysis, presented with progressive shortness of breath likely due to acute on chronic respiratory failure due to COPD Plan / VTE VTE Prophylaxis Ordered?: Yes Plan Plan Acute on chronic respiratory failure due to COPD exacerbation and started IV Solu-Medrol, albuterol, ipratropium, chest x-ray did not show any acute infiltrates. There was no fever, troponin 0.11. No ischemia on EKG, get echocardiogram, court recording monitor. Leukocytosis. WBC 29.7 and mostly neutrophils. No fever. Chest x-ray normal with check lactic acid, urine culture, blood cultures to find out the source of any infection. Empirically patient was started on IV ceftriaxone, doxycycline could not be started due to the contraceptives. Hyponatremia. Sodium 132. We will continue with fluid restriction and monitor sodium. ESRD on hemodialysis, creatinine 6.21. Get nephrology consult in the morning. Back pain. Patient's symptoms to have grade 1, compression deformity of T7 and multilevel degenerative disc disease. Continue with pain control, physical therapy. Depression. Continue with Celexa. Hypothyroid. Continue with Synthroid. Hypertension. Continue with atenolol. Diet: Continue Current Activity: Continue Current Therapy: PT Respiratory: Increase Oxygen Anticipated Discharge: Home HAYDE ECHOLS MD Apr 27, 2017 05:51
[2017-04-27 06:36] VITALS: BP 163/84
[2017-04-27] MEDS: COMBIVENT RESPIMAT 100-20MCG INHALER 4GM INH SCH ×3 (08:14→18:00)
[2017-04-27] MEDS: SYMBICORT 160/4.5MCG INHALER 6GM INH SCH ×2 (08:14→20:00)
[2017-04-27] MEDS: LEVOTHYROXINE 0.137 MG TAB (137MCG) PO SCH (08:18)
[2017-04-27] MEDS: PANTOPRAZOLE 40MG INJ (PROTONIX) (C9113) IV SCH (08:51)
[2017-04-27] MEDS: methylPREDNISolone INJ 125 MG/2 ML VIAL (J2930) IV SCH ×2 (08:51→17:25)
[2017-04-27] MEDS: ATENOLOL 50 MG TAB PO SCH ×2 (08:52→21:33)
[2017-04-27] MEDS: MINOXIDIL 2.5 MG TAB PO SCH (08:52)
[2017-04-27] MEDS ORDERED: predniSONE 10 MG TAB PO SCH (09:00)
[2017-04-27] MEDS: HEPARIN SOD (PORCINE) 5000 UNITS/ML VIAL SQ SCH ×3 (09:08→20:29)
[2017-04-27] MEDS ORDERED: LIDOCAINE 1% SDV 5 ML VIAL SQ ONE (10:00)
--- NOTE | 2017-04-27 11:41 | REP ---
CHEST X-RAY: Two views. HISTORY: Short of breath. Comparison chest x-ray April 27, 2017. FINDINGS: The lungs are symmetrically aerated and free of infiltrate. Pleural angles are sharp. Heart is not enlarged. The aorta somewhat tortuous. Oxygen delivery tubing is seen. No significant bony abnormality is noted. IMPRESSION: No active disease. Signed by Manjit Cruz MD 04/27/2017 01:38 P
--- NOTE | 2017-04-27 11:59 | CR ---
DATE OF CONSULTATION: 04/27/2017 REFERRING PHYSICIAN: Timothy Alonso DO REASON FOR CONSULTATION: To assist in the management of end-stage renal disease and shortness of breath. HISTORY OF PRESENT ILLNESS: Mrs. Blackmon is a 66-year-old female with known history of advanced chronic lung disease related to smoking, history of end-stage renal disease secondary to polycystic kidney disease and history of hypertension. She was seen in the emergency room on April 25 due to shortness of breath and at that time she was treated and discharged to home. She came back last night and got admitted due to chronic obstructive pulmonary disease (COPD) exacerbation. The patient did miss her dialysis treatment on April 25 due to being in the emergency room. Nephrology consultation was requested as the patient is in need for dialysis. PAST MEDICAL AND SURGICAL HISTORY: Significant for: 1. History of chronic obstructive pulmonary disease (COPD), active smoking. 2. End-stage renal disease secondary to polycystic kidney disease. 3. History of chronic back pain. 4. History of hypothyroidism. 5. History of depression. 6. History of secondary hyperparathyroidism. MEDICATIONS: Her home medications include: - Arielle-Roby one tablet daily - Incruse Ellipta 62.5 mcg one inhalation daily - aspirin 81 mg daily - atenolol 50 mg twice daily - Symbicort 160/4.5 mcg two puffs twice daily - Lexapro 10 mg at bedtime - levothyroxine 137 mcg daily - Losartan 100 mg daily - minoxidil 2.5 mg daily - prednisone 10 mg daily She also uses albuterol inhalers and nebulizers as needed. She takes lorazepam 1 mg as needed anxiety and oxycodone/acetaminophen 5/325 mg every 6 hours as needed pain. ALLERGIES: There is allergy to CODEINE and LISINOPRIL listed. FAMILY HISTORY: Family history is significant for polycystic kidney disease and end-stage renal disease. There is also hypertension in her family. PERSONAL AND SOCIAL HISTORY: The patient smokes chronically. She does not have any history of alcohol or drug use. REVIEW OF SYSTEMS: She denies any fever or chills. Head and neck is unremarkable. Ears, nose and throat are negative. Cardiovascular system is negative for known coronary artery disease. She denies any chest pain. Respiratory system is significant for chronic obstructive pulmonary disease (COPD). She has chronic smoking. She denies any hemoptysis or pleuritic type chest pain. Endocrine system significant for hypothyroidism and negative for diabetes. Psychosocial system significant for depression and anxiety. Neurological system is negative for seizures. Hematological system is unremarkable. She has known history of anticoagulation use. Skin is negative for rash or ulcers. Musculoskeletal system significant for chronic back pain. PHYSICAL EXAMINATION: At the time of my visit this morning, the patient is awake and alert sitting at the edge of bed. Temperature 98.7 degrees Fahrenheit, heart rate 72 per minute and respiratory rate 22 per minute. Blood pressure 163/84 mmHg and oxygen saturation between 90 and 98% on 2 liters oxygen. Her head is atraumatic. Ears, nose and throat are unremarkable. There is no oral thrush or ulcers. Neck is supple with mildly elevated JVD. Thyroid is mildly enlarged. Heart sounds are regular and lungs with moderate air entry and bilateral expiratory wheezing. Abdomen is soft and large polycystic kidneys are palpable bilaterally. Extremities have no cyanosis or clubbing. Skin has no rash or ulcers. AV fistula in her left arm is patent. LABORATORY DATA: WBC count 29.7, hemoglobin 12.1 and hematocrit 37.3. Blood gas showed a pH of 7.27, pCO2 52 and pO2 39 on venous blood gas. This morning's blood gas showed a pH of 7.29, pCO2 41.7 and pO2 155.9. Her chemistry showed a sodium level 132 and potassium 4.9. BUN 82 and creatinine 6.21. Troponin 0.11. A lactic acid level is 1.1. Chest x-ray on admission showed no consolidation or effusion. PROBLEMS: 1. End-stage renal disease. The patient has not been dialyzed this week. She missed her dialysis on Tuesday due to being in the emergency room. We will dialyze her later this afternoon. Her electrolytes are fortunately still within normal range. 2. Shortness of breath. This is mostly related to her chronic obstructive pulmonary disease (COPD) exacerbation. Her volume status still seems to be reasonably well compensated. Will try to remove about 2 liters of fluid and see how she tolerates it. 3. Chronic smoking. I have discussed with the patient at length about need for quitting. She does not seem to be motivated. We have discussed this issue multiple times in the past. 4. Hypertension. Her blood pressure is reasonable. Slightly high readings are probably related to her respiratory issue. I suggest to continue with chronic antihypertensives and after dialysis, her blood pressure is likely to improve. She is also receiving high-dose steroids now which is probably contributing to her high blood pressure readings. I thank you for involving me in the care of Mrs. Blackmon. I will follow her along with you.
[2017-04-27] MEDS: LORazepam 1 MG TAB PO PRN (17:24)
[2017-04-27] MEDS ORDERED: ULTRACET TAB PO PRN (17:30)
[2017-04-27] MEDS: MORPHINE 4 MG/ML 1ML SYRINGE IV PRN (18:38)
[2017-04-27 20:45] VITALS: BP 117/70
[2017-04-27] MEDS: ESCITALOPRAM OXALATE 10 MG TAB (LEXAPRO) PO SCH (21:33)
[2017-04-28] MEDS: methylPREDNISolone INJ 125 MG/2 ML VIAL (J2930) IV SCH ×3 (00:23→15:06)
[2017-04-28] MEDS: MORPHINE 4 MG/ML 1ML SYRINGE IV PRN (00:24)
[2017-04-28] MEDS: COMBIVENT RESPIMAT 100-20MCG INHALER 4GM INH SCH ×4 (02:43→18:00)
[2017-04-28] MEDS: HEPARIN SOD (PORCINE) 5000 UNITS/ML VIAL SQ SCH (05:26)
[2017-04-28] MEDS: LEVOTHYROXINE 0.137 MG TAB (137MCG) PO SCH (05:40)
[2017-04-28] MEDS: cefTRIAXone SOD 1 GM in D5W MINI-BAG PLUS 50 ML IV SCH (05:41)
[2017-04-28 06:00] VITALS: BP 125/62
[2017-04-28 06:34] LABS: BASO % 0.3 % (0.0-1.0); EOS % 0.1 % (0.0-3.0); LARGE UNSTAINED CELL % 0.1 % (0.0-4.0); LYMPH # 0.2 K/mm3 (1.5-4.5); LYMPH % 1.6 % (24.0-44.0); MEAN CORPUSCULAR HEMOGLOBIN 30.1 pg (27.0-33.0); MEAN CORPUSCULAR VOLUME 94.1 fl (80.0-96.0); MONO # 0.4 K/mm3 (0.0-0.8); MONO % 3.3 % (0.0-5.0); NEUTROPHILS # 11.6 K/mm3 (1.8-7.7); NEUTROPHILS % 94.6 % (36.0-66.0); PLATELET COUNT, AUTOMATED 204 k/mm3 (150-450); RED CELL DISTRIBUTION WIDTH 17.5 % (11.5-14.5); WHITE BLOOD COUNT 12.3 K/mm3 (4.0-10.0)
[2017-04-28 06:49] LABS: ALBUMIN/GLOBULIN RATIO 0.94 (1.00-1.93); BILIRUBIN,TOTAL 0.5 MG/DL (0.2-1.0); CALCIUM LEVEL 8.2 MG/DL (8.8-10.2); CREATININE FOR GFR 4.2 MG/DL (0.55-1.02); GLOMERULAR FILTRATION RATE 11.2 (>45); POTASSIUM SERUM 4.5 MEQ/L (3.5-5.1); TOTAL PROTEIN 6.2 GM/DL (6.4-8.2)
[2017-04-28] MEDS: SYMBICORT 160/4.5MCG INHALER 6GM INH SCH ×2 (07:13→19:39)
--- NOTE | 2017-04-28 08:11 | ECGEPIP ---
Stationary ECG Study [facility] - ED Test Date: 2017-04-27 Pat Name: CHIQUITA FELIPE Department: Room: [place] [address] Gender: F Sales Consulting Director: HusainB: 1950 Requested By: TEDDY Bahena Order Number: [id number] Reading MD: Jennifer Mendoza Measurements Intervals [place] Rate: 77 P: 77 [place]: 141 QRS: -43 QRSD: 79 T: 32 QT: 402 QTc: 456 Interpretive Statements SINUS RHYTHM MARKED LEFT AXIS DEVIATION PRWP NSTTW ABNORMALITY SIMILAR 04/25/17 Electronically Signed On 04-28-2017 8:11:22 EDT by Jennifer Mendoza
[2017-04-28] MEDS: PANTOPRAZOLE 40MG INJ (PROTONIX) (C9113) IV SCH (08:26)
[2017-04-28] MEDS: ATENOLOL 50 MG TAB PO SCH ×2 (08:26→21:09)
[2017-04-28] MEDS: MINOXIDIL 2.5 MG TAB PO SCH (08:27)
[2017-04-28] MEDS: oxyCODONE 5MG TAB PO PRN ×3 (08:28→21:11)
--- NOTE | 2017-04-28 10:39 | CR ---
DATE OF CONSULTATION: 04/28/[address] WHYTE CHIEF COMPLAINT: Back pain. HISTORY: This is a pleasant, 66-year-old female patient who is currently admitted for shortness of breath, chronic obstructive pulmonary disease (COPD) and dialysis who also complains of back pain. The history was obtained from the patient though she is slightly confused throughout the history, but explains to me that probably about a week or so ago she started to develop mid back pain. She has had chronic neck pain and chronic low back pain for numerous years, but the onset of the mid back pain was about a week or so ago. There was NO fall, no injuries, no direct trauma to that area. She was not quite sure if it was secondary to her breathing troubles or to her kidneys, but she continued to have back pain. Ultimately, she was admitted for other conditions where CT of the chest and CT of the abdomen were obtained and notable for a T7 compression fracture without retropulsion of the fragments and is stable in appearance. I did review the studies on the computer and it is C/W a stable appearing T7 compression fracture with no retropulsion of the fracture segment. There is about 50% loss of vertebral height. There is also surrounding degenerative changes of the thoracic and lumbar spine, most significant of lumbar spine at L3-4 and L4-5. Overall, the patient tells me that she is still sore. They are having a difficult time finding pain medications to control her pain, but she is able to get out of bed now and be able to sit in a chair. She continues to be oxygen dependent. She is also doing dialysis. She denies any leg symptoms. Denies any arm symptoms. Denies any numbness or tingling into the fingertips or into the toes. She has had long standing balance issue that is unchanged since the latest onset of her back pain. CURRENT MEDICATIONS (include): - aspirin - atenolol - Symbicort inhaler - Lexapro - Synthroid - Lovastatin - minoxidil - prednisone ALLERGIES: - LISINOPRIL - CODEINE MEDICAL HISTORY: Includes the above listed back pain as well as lumbar degenerative disc disease, COPD and kidney failure. SURGICAL HISTORY: She has had a percutaneous pinning of the right hip approximately two years ago. FAMILY HISTORY: Noncontributory. SOCIAL HISTORY: She does continue to smoke. Other history is slightly confusing in terms of the patient reporting the rest of social history. PHYSICAL EXAMINATION: Today, reveals an alert female patient sitting in a hospital chair. She is sitting upright. She appears to be in no distress. She has oxygen and nasal cannula is in. She is able to converse with me, though she is slightly confused on the conversation. She does know that she is in the hospital and does know she has back pain and also does note that she is here for dialysis and her shortness of breath. She is a little confused on the date and the current time. Her neck is supple, without adenopathy or jugular venous distention (JVD). Abdomen is nontender on examination today. There is diffuse wheeze throughout the lungs. Heart: Regular rate and rhythm. Exam of the lower extremities revealed no irritability with hip range of motion. Straight leg raise testing is negative. Clonus is negative. Deep tendon reflexes are absent at knees and ankles. Upper extremities reveal full range of motion of the upper extremities without pain. Exam of the back and neck reveals no tenderness around the cervical spine. There is some minimal tenderness between T4 down to about T8, but no point tenderness on exam. There is also tenderness from L4 to S1, mainly on the left side. No step offs or deviations noted. Sacroiliac joints are nontender to palpation. The skin is intact. No erythema, edema or ecchymosis on examination today. Radial pulses easily palpable. Dorsalis pedis and posterior tibial pulses are palpable. She easily transitions from the seated to the standing position without difficulty in the room. She was able to take two or three steps without assistance in the hospital room today on exam. X-rays were reviewed. See history of present illness for the review of the x-rays. IMPRESSION: T7 compression fracture that is stable in appearance. RECOMMENDATION: Use of a walker and assistance with physical therapy with mobilization and getting in and out of bed. Would limit her activities and when she is up she should use a walker for ambulation. She should lift not more than 5 pounds. She will follow up in our office in two to three weeks after discharge. Followup for her compression fracture will also require repeat AP and lateral of the thoracic spine. She may need further imaging studies of the lumbar spine at some point, but currently there is no leg symptoms so I would recommend protective weight bearing with the use of the walker, but no brace at this point. I do not feel she would tolerate a brace and with her COPD it may make it difficult for her to tolerate a brace. Physical therapy (PT) for mobilization. Followup as previously discussed. For her lumbar spine, no further treatment is indicated at this point other than up with physical therapy to work on gait training and doing transitions in and out of bed. Pain control per her primary team. BRANDT
--- NOTE | 2017-04-28 10:48 | IPN ---
DATE: 04/27/2017 Mrs. Blackmon is seen this morning on her bedside. She is still short of breath; however, feels better compared with yesterday. She underwent hemodialysis yesterday afternoon, which she tolerated very well. She denies any nausea, vomiting, fever or chills. PHYSICAL EXAMINATION Temperature 98.5 degrees Fahrenheit, heart rate 64 per minute and respiratory rate 20 per minute. Blood pressure 129/66 mmHg and oxygen saturation 100% on room air. Head is atraumatic. Ears, nose and throat are unremarkable. Neck is supple and jugular venous distention (JVD) is only mildly elevated. There is no thyroid enlargement and trachea is midline. Heart sounds are regular and lungs with bilateral expiratory wheezing. There are few basilar crackles. Abdomen is soft and distended with large bilateral polycystic kidneys. There is no tenderness. Bowel sounds are normal. Extremities have no cyanosis or clubbing. Skin has no rash or ulcers. Neurologically, she is awake, alert and oriented times three. Today's labs show WBC count 12.3, hemoglobin 10.8 and hematocrit 33.8. Platelets 204. Sodium 134 and potassium 4.5. BUN 42 and creatinine 4.2. Calcium level is 8.2. PROBLEMS: 1. End-stage renal disease. The patient underwent hemodialysis yesterday. Her next dialysis will be scheduled for tomorrow, which is her regular day. At present, her volume status is reasonably well-compensated and electrolytes are within normal range. There is no emergent indication for dialysis today. 2. Shortness of breath with chronic obstructive pulmonary disease (COPD) exacerbation. The patient seems to be improving. I discussed with her yesterday at length about need for stopping smoking. She has problems with motivation. We will keep encouraging her to stop smoking. Her breathing seems to be better; however, she still has some wheezing. She continues with nebulizers and steroid therapy. 3. Hypertension. Blood pressure is very well controlled on current antihypertensive medications. No changes are needed. MTDD
--- NOTE | 2017-04-28 11:06 | IPN ---
DATE: 04/28/2017 66-year-old female seen at bedside. No overnight issues reported. She feels that her breathing is doing minimally better but she is having some thoracic back pain with the associated thoracic compression fracture. Will try to modify her pain medications a little more today. OBJECTIVE: Temperature is 98.5, pulse 64, respiratory rate 17, blood pressure 125/62, SPO2 is 100% on room air. GENERAL: The patient appears to be in no acute distress. She is alert, pleasant. HEENT: Unremarkable. LUNGS: Diminished bibasilar breath sounds, prolonged expiratory phase with occasional wheeze. HEART: Regular rhythm. ABDOMEN: Soft. EXTREMITIES: No edema. No calf tenderness. LABORATORY DATA: White count 12.3 down from 29,000, hemoglobin is 10.8, platelets 204,000. Sodium 134, potassium 4.5, chloride 98, bicarb 28, anion gap 8, BUN is 42, creatinine 4.20, glucose 117. ASSESSMENT/PLAN: 1. Acute on chronic respiratory failure. Will continue with Solu-Medrol which will taper her dose today. Plan on starting oral prednisone with taper within the next 24-48 hours. Continue with DuoNebs. 2. Acute back pain from thoracic compression fracture. I did request her to be seen by ortho today. Will modify her pain medicine to OxyContin with IV morphine for breakthrough pain. Physical therapy, occupational therapy have been ordered. 3. Leukocytosis improved. Will continue to follow. 4. Hyponatremia, improved. 5. End-stage renal disease on hemodialysis. She had dialysis yesterday. Anticipate dialysis tomorrow. 6. Depression. Continue on Celexa. 7. Hypothyroidism. Doing well on Synthroid. No changes. 8. Deep vein thrombosis (DVT) prophylaxis. Thromboembolic deterrent stockings (TEDS) and sequential. She has refused subcu heparin. DISPOSITION: Anticipate home discharge within the next 24-48 hours.
[2017-04-28 14:00] VITALS: BP 149/75
[2017-04-28] MEDS ORDERED: MOM 30ML SUSPENSION UDC PO ONE (20:30)
[2017-04-28] MEDS ORDERED: MOM 30ML SUSPENSION UDC PO PRN (20:45)
[2017-04-28] MEDS: LORazepam 1 MG TAB PO PRN (21:08)
[2017-04-28] MEDS: ESCITALOPRAM OXALATE 10 MG TAB (LEXAPRO) PO SCH (21:08)
[2017-04-28] MEDS: zolPIDEM TARTRATE 5 MG TAB PO PRN (21:08)
[2017-04-28 22:00] VITALS: BP 137/78
[2017-04-29] MEDS: methylPREDNISolone INJ 125 MG/2 ML VIAL (J2930) IV SCH ×3 (00:05→18:43)
[2017-04-29] MEDS: LEVOTHYROXINE 137MCG TABLET (0.137MG) PO SCH (05:35)
[2017-04-29] MEDS: PANTOPRAZOLE 40MG INJ (PROTONIX) (C9113) IV SCH (05:35)
[2017-04-29] MEDS: cefTRIAXone SOD 1 GM in D5W MINI-BAG PLUS 50 ML IV SCH (05:36)
[2017-04-29] MEDS: oxyCODONE 5MG TAB PO PRN ×2 (05:38→13:49)
[2017-04-29] MEDS: MINOXIDIL 2.5 MG TAB PO SCH (05:47)
[2017-04-29] MEDS: ATENOLOL 50 MG TAB PO SCH ×2 (05:47→21:28)
[2017-04-29 06:00] VITALS: BP 162/98
[2017-04-29 06:24] LABS: EOS % 0.1 % (0.0-3.0); LARGE UNSTAINED CELL % 0.2 % (0.0-4.0); LYMPH # 0.3 K/mm3 (1.5-4.5); LYMPH % 2.5 % (24.0-44.0); MEAN CORPUSCULAR HEMOGLOBIN 30.3 pg (27.0-33.0); MEAN CORPUSCULAR HGB CONC 31.8 g/dl (32.0-36.5); MEAN CORPUSCULAR VOLUME 95.4 fl (80.0-96.0); MONO # 0.2 K/mm3 (0.0-0.8); MONO % 2.1 % (0.0-5.0); NEUTROPHILS # 10.2 K/mm3 (1.8-7.7); NEUTROPHILS % 95.1 % (36.0-66.0); PLATELET COUNT, AUTOMATED 181 k/mm3 (150-450); RED CELL DISTRIBUTION WIDTH 17.3 % (11.5-14.5); WHITE BLOOD COUNT 10.7 K/mm3 (4.0-10.0)
[2017-04-29 06:36] LABS: ALBUMIN 2.8 GM/DL (3.2-5.2); ALBUMIN/GLOBULIN RATIO 0.93 (1.00-1.93); BILIRUBIN,TOTAL 0.4 MG/DL (0.2-1.0); CALCIUM LEVEL 7.8 MG/DL (8.8-10.2); CREATININE FOR GFR 5.32 MG/DL (0.55-1.02); GLOMERULAR FILTRATION RATE 8.5 (>45); POTASSIUM SERUM 4.1 MEQ/L (3.5-5.1); TOTAL PROTEIN 5.8 GM/DL (6.4-8.2)
[2017-04-29] MEDS: COMBIVENT RESPIMAT 100-20MCG INHALER 4GM INH SCH ×4 (07:09→19:45)
[2017-04-29] MEDS: SYMBICORT 160/4.5MCG INHALER 6GM INH SCH ×2 (07:09→19:45)
[2017-04-29 07:10] VITALS: O2SAT 98
--- NOTE | 2017-04-29 09:17 | IPN ---
DATE: 04/29/2017 66-year-old female seen at bedside, resting comfortably. She is going for hemodialysis later this morning. She feels that her back pain is better controlled at this point. Appreciate orthopedics input. OBJECTIVE: Temperature is 98.3, pulse 61, respiratory rate is 24, blood pressure (BP) 162/98, SpO2 is 90% on 2 liters. General: The patient appears in no acute distress. Is alert, oriented, pleasant. HEENT: Unremarkable. Lungs: Clear. Heart: Regular rhythm. Abdomen: Soft. Extremities: No edema, no calf tenderness. LABORATORY DATA: White count is 10.7, hemoglobin 10.4, platelets 181. Sodium 136, potassium 4.1, chloride 97, bicarbonate 28, anion gap is 11, BUN 62, creatinine 5.32, glucose is 141. ASSESSMENT AND PLAN: 1. Acute on chronic respiratory failure. Does appear to be improving. Will further modify her Solu-Medrol. Continue DuoNebs. Plan on tapering on prednisone. 2. Acute back pain with thoracic compression fracture. Continue with current pain medicine regimen as well as physical therapy, occupational therapy. Appreciate orthopedics input. 3. Leukocytosis, improved. 4. Hyponatremia improved. 5. End-stage renal disease requiring hemodialysis. She does have dialysis today. 6. Depression. Continue on Celexa. No suicidal ideation. No audiovisual hallucination. 7. Hypothyroidism. Continue Synthroid. 8. Deep venous thrombosis (DVT) prophylaxis. Thromboembolism deterrents (TEDs) and sequentials. She has refused subcutaneous heparin. DISPOSITION: Anticipate discharge in the next 24 hours.
[2017-04-29] MEDS ORDERED: LIDOCAINE 1% SDV 5 ML VIAL SQ ONE (10:15)
[2017-04-29 14:00] VITALS: BP 136/65
[2017-04-29] MEDS: MORPHINE 4 MG/ML 1ML SYRINGE IV PRN (16:59)
--- NOTE | 2017-04-29 17:18 | ECHO ---
DATE OF PROCEDURE: 04/28/2017 AGE: 66 GENDER: Female. HEIGHT: 62 inches. WEIGHT: 99 pounds. BODY SURFACE AREA: 1.42 m2. INPATIENT: [address] [place], [place] [address]on Room 4202 INDICATION: Dyspnea. REFERRING PHYSICIAN: Rhea Lay MEASUREMENTS: 2D Measurement: RV - 4.0 cm LV - 4.7 cm Septum - 1.1 cm Posterior wall - 1.0 cm Aortic root - 3.2 cm LA - 3.3 cm LVEF - 70% DOPPLER MEASUREMENTS: ARTERIOVENOUS - 1.4 m/s LVOT - 1.3 m/ss LVOT diameter - 2.0 cm MV-E 83, A110, E/A ratio 0.8 Early mitral deceleration time - 151 ms E prime - 6, A prime - 12, E/E prime ratio 14. PV - 0.75 m/s Pulmonary artery acceleration time 70 ms RVSP - 58 mmHg IVC - 2.3 cm COMMENTS: Normal sinus rhythm without intraventricular conduction disturbance. Normal left heart chamber sizes. Right heart chamber sizes upper limits of normal. Normal left ventricular wall thickness with right ventricular free wall thickness upper limits of normal measuring 0.7 cm. On real-time imaging from the parasternal, apical, and subcostal projections wall motion was symmetrical and hyperkinetic. Normal-appearing mitral valvular apparatus leaflet excursion with no posterior systolic buckling. Three equal size aortic cusps with marginal cusp thickening but adequate cusp separation. Normal aortic root size. No apparent intracardiac mass or pericardial effusion. Color flow Doppler study taken from the parasternal and apical projection showed very mild mitral, trace aortic and mild to moderate tricuspid with mild pulmonic insufficiency. There was no apparent septal defect or left to right heart shunting. Guided continuous wave Doppler of her aortic valve showed a normal peak systolic velocity against left ventricular (LV) outflow tract obstruction. Pulsed and continuous wave Doppler of her LV inflow tract taken from the apical four-chamber projection showed normal diastolic filling velocities against mitral stenosis. There was more prominent late diastolic / atrial dependent filling pattern. Her early mitral deceleration time was normal but tissue Doppler also suggested a degree of impaired LV diastolic function but current estimated mean left atrial pressure was upper limits of normal. Pulsed and continuous wave Doppler of her pulmonary trunk showed a normal peak systolic velocity against right ventricular (RV) outflow tract obstruction. Her pulmonary artery acceleration time was significantly abbreviated consistent with an elevated pulmonary vascular resistance. Guided continuous wave Doppler of her tricuspid valve allowed our estimation of her right ventricular systolic pressure (moderately severely increased). Her inferior vena cava was slightly increased in size with reduced respiratory collapse suggestive an elevated central venous pressure. CONCLUSIONS: Normal left ventricular size and hyperkinetic wall motion. Normal left atrial size with Doppler evidence of an impairment of LV diastolic function but currently normal estimated mean left atrial pressure. Right heart chambers upper limits of normal in size with borderline right ventricular free wall hypertrophy. Hyperkinetic right ventricular wall motion, though Doppler evidence of moderately severe pulmonary hypertension. Mildly dilated inferior vena cava with reduced respiratory collapse consistent with an elevated central venous pressure. Comparing the above test findings with those of 11/25/2016, estimated pulmonary arterial pressure appeared to be greater.
--- NOTE | 2017-04-29 17:42 | IPN ---
DATE: 04/29/2017 SUBJECTIVE: Ms. Blackmon is seen this morning during hemodialysis on her bedside. She is feeling better and her dyspnea has improved. She continues to have pain in her back at the site of compression fracture. She denies any nausea or vomiting. PHYSICAL EXAMINATION VITAL SIGNS: Temperature 98.3 degrees Fahrenheit, heart rate 60 per minute and respiratory rate 18 per minute. Blood pressure 160/90 mmHg and oxygen saturation 98% on two liters oxygen. HEAD/NECK: Her head is atraumatic. Neck is supple and jugular venous distention (JVD) is only mildly elevated. Ears, nose and throat are unremarkable. HEART/LUNGS: Sounds are regular and lungs sound much clearer today without any wheezing or rales. She does have slightly diminished breath sounds. ABDOMEN: Soft and large polycystic kidneys are palpable, which are nontender. Bowel sounds are normal. EXTREMITIES: Have no cyanosis or clubbing. SKIN: Has no rash or ulcers. NEUROLOGIC: She is awake, alert and oriented times three. LABORATORY DATA: Today's labs show WBC count 10.7, hemoglobin 10.4 and hematocrit 32.6. Sodium 136 and potassium 4.1. BUN 62 and creatinine 5.32. MICROBIOLOGY: Blood cultures have been negative and sputum cultures showed Klebsiella, Streptococcus pneumoniae and Staphylococcus aureus. PROBLEMS: 1. End-stage renal disease. The patient is being dialyzed today and she is tolerating her dialysis very well. We are trying to remove about two liters of fluid as tolerated. Her electrolytes were within normal range and volume status seems to be reasonably well-compensated. 2. Hypertension. Blood pressure is reasonable and current antihypertensive medications will be continued. We will monitor her blood pressure after dialysis. 3. Chronic obstructive pulmonary disease (COPD) exacerbation. The patient has multiple organisms in her sputum culture. Her dyspnea has improved. She remains on Levaquin 500 mg and her dose should be every 72 hours. Ceftriaxone has been stopped. She still on intravenous steroids. 4. Compression fracture of spine. The patient remains on pain medication and is feeling slightly better.
[2017-04-29 21:10] VITALS: BP 135/76
[2017-04-29] MEDS: LORazepam 1 MG TAB PO PRN (21:27)
[2017-04-29] MEDS: ESCITALOPRAM OXALATE 10 MG TAB (LEXAPRO) PO SCH (21:27)
[2017-04-29] MEDS: zolPIDEM TARTRATE 5 MG TAB PO PRN (21:27)
[2017-04-29 22:00] VITALS: BP 135/76
[2017-04-30 05:47] LABS: EOS % 0.1 % (0.0-3.0); LARGE UNSTAINED CELL % 0.3 % (0.0-4.0); LYMPH # 0.4 K/mm3 (1.5-4.5); MEAN CORPUSCULAR HEMOGLOBIN 30.5 pg (27.0-33.0); MEAN CORPUSCULAR HGB CONC 31.5 g/dl (32.0-36.5); MEAN CORPUSCULAR VOLUME 96.9 fl (80.0-96.0); MONO # 0.3 K/mm3 (0.0-0.8); MONO % 2.6 % (0.0-5.0); NEUTROPHILS # 11.6 K/mm3 (1.8-7.7); PLATELET COUNT, AUTOMATED 204 k/mm3 (150-450); RED CELL DISTRIBUTION WIDTH 17.3 % (11.5-14.5); WHITE BLOOD COUNT 12.4 K/mm3 (4.0-10.0)
[2017-04-30 06:00] VITALS: BP 132/76
[2017-04-30] MEDS ORDERED: LevoFLOXacin 500 MG TABLET PO SCH ×2 (06:00)
[2017-04-30] MEDS: methylPREDNISolone INJ 125 MG/2 ML VIAL (J2930) IV SCH (06:05)
[2017-04-30] MEDS: LEVOTHYROXINE 137MCG TABLET (0.137MG) PO SCH (06:05)
[2017-04-30] MEDS: oxyCODONE 5MG TAB PO PRN (06:07)
[2017-04-30 06:10] LABS: ALBUMIN 2.9 GM/DL (3.2-5.2); ALBUMIN/GLOBULIN RATIO 0.97 (1.00-1.93); BILIRUBIN,TOTAL 0.5 MG/DL (0.2-1.0); CALCIUM LEVEL 8.4 MG/DL (8.8-10.2); CREATININE FOR GFR 3.73 MG/DL (0.55-1.02); GLOMERULAR FILTRATION RATE 12.8 (>45); POTASSIUM SERUM 4.5 MEQ/L (3.5-5.1); TOTAL PROTEIN 5.9 GM/DL (6.4-8.2)
[2017-04-30] MEDS: SYMBICORT 160/4.5MCG INHALER 6GM INH SCH (07:05)
[2017-04-30] MEDS: COMBIVENT RESPIMAT 100-20MCG INHALER 4GM INH SCH ×2 (07:05)
[2017-04-30] MEDS: ATENOLOL 50 MG TAB PO SCH (08:45)
[2017-04-30] MEDS: PANTOPRAZOLE 40MG INJ (PROTONIX) (C9113) IV SCH (08:45)
[2017-04-30 08:46] VITALS: BP 132/76
[2017-04-30] MEDS: MINOXIDIL 2.5 MG TAB PO SCH (08:46)
[2017-04-30] MEDS ORDERED: predniSONE 20 MG TAB PO SCH (09:00)
[2017-04-30] MEDS ORDERED: PRED10TA PO (09:33)
[2017-04-30] MEDS ORDERED: LEVA500T PO (10:49)
--- NOTE | 2017-04-30 13:36 | IPN ---
DATE: 04/30/2017 SUBJECTIVE: The patient was seen and examined at the bedside today in the morning. She was dialyzed yesterday. She tolerated the hemodialysis procedure well. She reports that she has pain in her spine because of the stress fracture that was recently diagnosed. Otherwise, she feels better. REVIEW OF SYSTEMS: The patient denies any fever, chills, rigors, headache, nausea, vomiting, chest pain. The patient does report shortness of breath which is improving now. She also reports pain at the thoracic spine fracture site. She denies any pain in abdomen, constipation or diarrhea. The rest of the review of systems is negative. OBJECTIVE: Vital Signs: Temperature 98.6 degrees Fahrenheit. Blood pressure 132/76. Pulse 60. Respiratory rate 16. Saturating 99% on nasal canula. Intake and Output: Urine output recorded as 100 mL overnight. She got hemodialysis and ultra filtration was 2 liters. Weight on the bed scale is 44.5 kg. PHYSICAL EXAMINATION: General: The patient is awake, alert and oriented times three, laying in bed in no apparent distress. Head and Neck: Extraocular muscles intact. Pupils equally round and reactive to light. Mucous membranes are moist. Neck: Supple. There is no jugular venous distention (JVD). Cardiovascular: S1, S2. Regular rate. No murmur, rub or gallop. Respiratory: Mild expiratory rhonchi all over the lungs. The patient has tenderness of the lower thoracic spine as well. Abdomen: Soft. Positive bowel sounds. Nontender. No ascites. No organomegaly. Extremities: No clubbing or cyanosis. Pulses are 2+. Central Nervous System: No focal neurological deficit. Power is 5/5 in all extremities. AV Access: Patient has a left forearm AV fistula with positive thrill and bruit. LAB REVIEW: CBC showed a WBC of 12.4, hemoglobin 10.6, and platelets 204. BMP showed sodium 138, potassium 4.5, chloride 99, bicarbonate 31, BUN 43, creatinine 3.7, albumin 2.9. CURRENT MEDICATIONS: Patient's medications were all reviewed by me and there is no change in the medications today as compared with yesterday except the prednisone dose 40 mg by mouth daily. ASSESSMENT: 66-year-old female with past medical history of end stage renal disease on hemodialysis this time admitted because of COPD exacerbation and pain because of compression fracture of the spine. PLAN: 1. End stage renal disease on hemodialysis. Patient's regular dialysis days are Tuesday, Tuesday and Tuesday. She was dialyzed yesterday according to her regular schedule. There is no urgent need to do hemodialysis today. 2. COPD exacerbation. She feels much better at this time. She is currently on Levaquin and nebulizations as needed. The patient was advised to quit smoking at this time. 3. Compression fracture of the spine. The patient was seen by orthopedics and no intervention needed at this time. Continue the pain optimization. 4. Discharge planning. It is okay to discharge the patient from the nephrology standpoint. She will be dialyzed as outpatient tomorrow.
--- NOTE | 2017-04-30 15:32 | DS.PDOC ---
Discharge Summary General Date of Admission Apr 27, 2017 at 05:00 Date of Discharge April 30, 2017 Primary Care Physician: Sarah Pickard Attending Physician: ANNAMARIE SCHULTE MD Discharge Summary Consults: Dr. Asa Mena, Dr. Chris Garces Nephrology [facility] Discharge diagnosis: Acute on chronic respiratory failure secondary to COPD exacerbation. Acute back pain with thoracic compression fracture Secondary diagnosis: End-stage renal disease requiring hemodialysis Leukocytosis Hyponatremia Depression Hypothyroidism Hospital course: Mrs. Blackmon is a 66-year-old female with a past medical history of COPD, back pain, end-stage renal disease on hemodialysis who presented to [facility] on 04/27/2010 for progressively worsening shortness of breath. This is due to acute on chronic respiratory failure most likely secondary to COPD. She was found to have leukocytosis with a white blood cell count 29.7 but no fever. A chest x-ray that was done was normal. Blood cultures were done which were negative for 72 hours. Sputum cultures were obtained which showed Klebsiella pneumoniae (few), Streptococcus pneumoniae (heavy), and Staphylococcus aureus (moderate), many white blood cells, few epithelial cells, and many gram-positive cocci impairs. She was started on IV Solu-Medrol, Symbicort twice a day, Combivent respimat q6 hours, Proventil q4 hours PRN shortness of breath, Atrovent QID PRN shortness of breath. She was started empirically on IV ceftriaxone which was changed to Levaquin. She was also found to be hyponatremic with a sodium level of 132 which had improved and normalized with fluid restriction. In addition, nephrology was consulted for end-stage renal disease for hemodialysis. Initial creatinine on admission was 6.21 and 3.73 on day of discharge. Patient normally receives dialysis on Tuesday, Tuesday, Tuesday schedule. Patient's home medications were also continued. Orthopedics was also consulted due to patient's acute back pain which was found to be a previous T7 compression fracture that was stable in appearance. It was recommended for patient to use a walker with ambulation and work with PT for gait training and transfers. Patient had worked with physical therapy and was found to be independent for home mobility needs. Her pain was controlled with oxycodone and morphine. Patient's home medications were also continued. Patient was given DVT prophylaxis with TEDS and sequentials. The patient refused subcutaneous heparin. Patient's dyspnea has improved throughout hospitalization. Patient has no acute complaints of shortness of breath today. She admits to feeling better. She is hemodynamically stable and clinically stable for discharge. Progress note on date of discharge: Subjective: Patient seen and examined at bedside. Denies fevers, chills, chest pain, shortness of breath, nausea, vomiting, abdominal pain, diarrhea, constipation, edema, dizziness, headache, sore throat. Admits to a mild cough and decreased sputum production. Objective: Vitals: Please see below. Satting in 90s on 2 L nasal cannula. General: Pleasant and cooperative frail elderly female, awake, alert and oriented x 3, verbal and able to answer questions appropriately. NAD. Resting comfortably in bed. HEENT: NCAT. Sclera nonicteric. Grossly normal hearing bilaterally. Neck: Supple. Heart: Regular rate and rhythm, normal S1-S2. Distant heart sounds. No murmurs , rubs, clicks or gallops. Lungs: +Mild Fibrotic rales throughout lung louis but mainly clear to auscultation bilaterally. No wheezes or rhonchi. Abdomen: Bowel sounds present. A bit distended and bloated (normal for her baseline) but not rigid, nontender. MSK: Normal ROM. Extremities: No LE edema bilaterally. Vascular: +2 dorsalis pedis pulses bilaterally. Integumentary: no rashes or lesions noted. Labs: Please see below. Assessment: 66-year-old female with a past medical history of COPD, back pain, end-stage renal disease on hemodialysis who presented to [facility] on 04/27 for progressively worsening shortness of breath due to acute on chronic respiratory failure secondary to COPD. Disposition: Home. Follow-up: With PCP Sarah Pickard in 5-7 days. Activity: As tolerated. Recommend to use walker for ambulation and to not lift anything more than 5 lbs. Diet: COPD and Renal Diet. Medications on discharge: Please see below. Time spent on discharge: 35 minutes. Vital Signs/I&Os Vital Signs Date Time Temp Pulse Resp B/P (MAP) Pulse Ox O2 Delivery O2 Flow Rate FiO2 04/30/17 08:46 132/76 04/30/17 08:45 60 04/30/17 08:00 Nasal Cannula 2.0 04/30/17 06:37 16 04/30/17 06:00 98.6 99 I&O- Last 24 Hours up to 6 AM 04/30/17 06:00 Intake Total 700 ml Output Total 2100 ml Balance -1400 ml Laboratory Data Labs 24H Laboratory Tests 2 04/30/17 05:20: White Blood Count 12.4H, Red Blood Count 3.48L, Hemoglobin 10.6L, Hematocrit 33.7L, Mean Corpuscular Volume 96.9H, Mean Corpuscular Hemoglobin 30.5, Mean Corpuscular Hemoglobin Concent 31.5L, Red Cell Distribution Width 17.3H, Platelet Count 204, Neutrophils (%) (Auto) 94.0H, Lymphocytes (%) (Auto) 3.0L, Monocytes (%) (Auto) 2.6, Eosinophils (%) (Auto) 0.1, Basophils (%) (Auto) 0.0, Neutrophils # (Auto) 11.6H, Lymphocytes # (Auto) 0.4L, Monocytes # (Auto) 0.3, Eosinophils # (Auto) 0.0, Basophils # (Auto) 0.0, Large Unclassified Cells % 0.3 , Large Unclassified Cells # 0.0, Anion Gap 8, Glomerular Filtration Rate 12.8L , Blood Urea Nitrogen 43H, Creatinine 3.73H, Sodium Level 138, Potassium Level 4.5, Chloride Level 99, Carbon Dioxide Level 31, Calcium Level 8.4L, Aspartate Amino Transf (AST/SGOT) 13L, Alanine Aminotransferase (ALT/SGPT) 25, Alkaline Phosphatase 76, Total Bilirubin 0.5, Total Protein 5.9L, Albumin 2.9L, Albumin/ Globulin Ratio 0.97L CBC/BMP Laboratory Tests 04/30/17 05:20 Red Blood Count 3.48 L, Mean Corpuscular Volume 96.9 H, Mean Corpuscular Hemoglobin 30.5, Mean Corpuscular Hemoglobin Concent 31.5 L, Red Cell Distribution Width 17.3 H, Neutrophils (%) (Auto) 94.0 H, Lymphocytes (%) (Auto ) 3.0 L, Monocytes (%) (Auto) 2.6, Eosinophils (%) (Auto) 0.1, Basophils (%) ( Auto) 0.0, Neutrophils # (Auto) 11.6 H, Lymphocytes # (Auto) 0.4 L, Monocytes # (Auto) 0.3, Eosinophils # (Auto) 0.0, Basophils # (Auto) 0.0, Calcium Level 8.4 L, Aspartate Amino Transf (AST/SGOT) 13 L, Alanine Aminotransferase (ALT/SGPT) 25, Alkaline Phosphatase 76, Total Bilirubin 0.5, Total Protein 5.9 L, Albumin 2.9 L Microbiology Microbiology 04/27/17 Blood Culture - Preliminary, Resulted No Growth after 72 hours. All specime... 04/27/17 Gram Stain - Final, Resulted 04/27/17 Sputum Culture - Preliminary, Resulted Klebsiella Pneumoniae Streptococcus Pneumoniae Staphylococcus Aureus 04/30/17 Urine Culture, Received Pending Discharge Medications Scheduled (Activella 1-0.5 mg) 1 Tab Tab, 1 TAB PO DAILY, (Reported) (Arielle-Roby Rx 1 mg) 1 Tab Tab, 1 TAB PO DAILY, (Reported) (Incruse Ellipta) 62.5 Mcg/Inh Inh, 62.5 MCG INH DAILY, (Reported) Aspirin (Aspirin EC) 81 Mg Tabec, 81 MG PO DAILY, (Reported) Atenolol (Atenolol) 50 Mg Tab, 50 MG PO BID, (Reported) Budesonide/Formoterol (Symbicort 160-4.5 Mcg/Act) 60 Puff/Inhaler Aers, 2 PUFF INH BID, (Reported) Escitalopram Oxalate (Lexapro) 10 Mg Tab, 10 MG PO QHS, (Reported) Levofloxacin Hemihydrate (Levaquin) 500 Mg Tab, 500 MG PO ASDIRECTED Take 1 tablet on 05/02/17. Levothyroxine Sodium (Synthroid) 137 Mcg Tab, 137 MCG PO DAILY, (Reported) Losartan Potassium (Losartan Potassium) 100 Mg Tab, 100 MG PO DAILY, (Reported) Minoxidil (Minoxidil) 2.5 Mg Tab, 2.5 MG PO DAILY, (Reported) Prednisone (Prednisone) 10 Mg Tab, 10 MG PO ASDIRECTED Scheduled PRN (Diclofenac Sodium) 1 % Gel, 1 DOSE TD TID PRN for PAIN, (Reported) PATIENT USES ON UPPER BACK/SHOULDER BLADES Albuterol Sulfate (Ventolin Hfa) 200 Puff/8 Gm Aers, 2 PUFF INH Q4H PRN for SHORTNESS OF BREATH, (Reported) Albuterol Sulfate (Albuterol Sulfate) 2.5 Mg/3 Ml Nebu, 2.5 MG INH Q4H PRN for SHORTNESS OF BREATH, (Reported) Ipratropium [place] (Atrovent Hfa) 17 Mcg/Act Aer, 2 PUFFS INH QID PRN for SHORTNESS OF BREATH, (Reported) Lorazepam (Lorazepam) 1 Mg Tab, 1 MG PO DAILY PRN for ANXIETY, (Reported) Oxycodone/Acetaminophen (Oxycodone/Acetaminophen 5-325 mg) 1 Tab Tab, 1 TAB PO Q6H PRN for PAIN, (Reported) Allergies Coded Allergies: Lisinopril (Verified Allergy, Severe, tongue swelling, 04/27/17) Codeine (Unverified Adverse Reaction, Mild, GI UPSET, 04/27/17) GME ATTESTATION GME ATTESTATION My preceptor for this patient encounter was Dr. Annamarie Schulte, and was physically present in the building during the encounter and was fully available. As needed , all aspects of the patient interview, examination, medical decision making process, and medical care plan development were reviewed and approved by the preceptor. Preceptor is aware and concurs with the plan as stated in the body of this note and will attest to such by his/her cosignature. KARLIE CHRIS [id number] Apr 30, 2017 15:32
== END 2017-04-30 11:48 | disposition home or self-care (01) | DRG 190 ==
LOC: M ED 04-27 02:41 → M ED INP 04-27 05:00 → M MSPAV 04-27 06:37
PROVIDERS: ADMIT Internal Medicine; ATTEND Internal Medicine Nephrology
DX: J44.1 Chronic obstructive pulmonary disease with (acute) exacerbation (principal); J96.01 Acute respiratory failure with hypoxia; E87.1 Hypo-osmolality and hyponatremia; N25.81 Secondary hyperparathyroidism of renal origin; Q61.3 Polycystic kidney, unspecified; I12.0 Hypertensive chronic kidney disease with stage 5 chronic kidney disease or end stage renal disease; E03.9 Hypothyroidism, unspecified; F32.9 Major depressive disorder, single episode, unspecified; Z79.899 Other long term (current) drug therapy; Z79.82 Long term (current) use of aspirin; Z79.52 Long term (current) use of systemic steroids; Z88.5 Allergy status to narcotic agent; Z88.8 Allergy status to other drugs, medicaments and biological substances; D72.829 Elevated white blood cell count, unspecified; M48.54XS Collapsed vertebra, not elsewhere classified, thoracic region, sequela of fracture

== ENCOUNTER 2017-05-23 11:58 | Inpatient (IN) | payer OTHER, MEDICAID, MEDICARE ==
[~2017-05-23] VITALS: Ht 157.5 cm; Wt 35.5 kg
[~2017-05-23 11:58] MED LIST changes: +ASPI81TAEC PO; +AZIT-12 PO; -AZIT250T3 PO; +BACITAB PO; -BACITAB3 PO; +DICL1GEL3 TD; +LEVA1TAB2 PO; -LEVA500T PO; -LEVA750T PO; +LEVA750T7 PO; +MINO2.5T PO; -MINO25TA PO; +OXYC1TAB23 PO; +PERC5TAB12 PO; -PERC5TAB6 PO; +PRED10TA2 PO; +PRED20TA PO
[2017-05-23] MEDS ORDERED: COZA100T2 PO (12:15)
[2017-05-23] MEDS ORDERED: IPRATROPIUM 0.5MG/ALBUTEROL 2.5MG INH SOL UD 3ML (DUONEB)(J7620) NEB ONE (13:15)
[2017-05-23 13:18] LABS: BASO % 0.4 % (0.0-1.0); EOS # 0.1 K/mm3 (0.0-0.50); EOS % 0.6 % (0.0-3.0); LARGE UNSTAINED CELL # 0.1 K/mm3 (0.0-0.4); LARGE UNSTAINED CELL % 0.7 % (0.0-4.0); LYMPH # 0.5 K/mm3 (1.5-4.5); LYMPH % 5.3 % (24.0-44.0); MEAN CORPUSCULAR HEMOGLOBIN 31.1 pg (27.0-33.0); MEAN CORPUSCULAR HGB CONC 32.2 g/dl (32.0-36.5); MEAN CORPUSCULAR VOLUME 96.6 fl (80.0-96.0); MONO # 0.3 K/mm3 (0.0-0.8); MONO % 2.9 % (0.0-5.0); NEUTROPHILS # 8.5 K/mm3 (1.8-7.7); NEUTROPHILS % 90.1 % (36.0-66.0); PLATELET COUNT, AUTOMATED 106 k/mm3 (150-450); WHITE BLOOD COUNT 9.4 K/mm3 (4.0-10.0)
--- NOTE | 2017-05-23 13:37 | REP ---
Clinical: Altered mental status. Technique: PA and lateral. Comparison: 04/27/2017. Findings: Mediastinum and cardiac silhouette are within normal limits and stable. Lung louis demonstrate diffuse chronic interstitial changes subtle right lower lobe infiltrate cannot be excluded. No effusion. No pneumothorax. Skeletal structures intact. Impression: Cannot exclude subtle right lower lobe infiltrate. Signed by Colin Mathew MD 05/23/2017 01:28 P
--- NOTE | 2017-05-23 13:39 | REP ---
Clinical: Altered mental status. Comparison: 12/05/2014 . Findings: Age-related atrophy and microvascular ischemic changes are appreciated. The ventricles and sulci are symmetric. Montoya-white differentiation is maintained. There is no evidence for acute intracranial hemorrhage, mass/mass effect, pathology or infarction. No extra-axial fluid collection. Calvarium is intact. Paranasal sinuses and mastoid air cells are clear. Impression: Age related atrophy and microvascular ischemic changes. No acute intracranial hemorrhage, infarction, or mass/mass effect. Signed by Colin Mathew MD 05/23/2017 01:31 P
[2017-05-23] MEDS ORDERED: LABETALOL HCL 100 MG/20 ML VIAL IV STA (13:54)
[2017-05-23 14:06] LABS: ALBUMIN 3.3 GM/DL (3.2-5.2); ALBUMIN/GLOBULIN RATIO 1.43 (1.00-1.93); BILIRUBIN,DIRECT 0.4 MG/DL (0.0-0.2); CREATININE FOR GFR 5.34 MG/DL (0.55-1.02); GLOMERULAR FILTRATION RATE 8.5 (>45); POTASSIUM SERUM 3.8 MEQ/L (3.5-5.1); TOTAL PROTEIN 5.6 GM/DL (6.4-8.2)
[2017-05-23] MEDS ORDERED: VANCOMYCIN HCL 1,000 MG, VIAL MATE ADAPTER 1 EACH in D5W 250 ML IV ONE (16:30)
[2017-05-23] MEDS ORDERED: PIPERACILLIN/TAZOBACTAM SOD 2.25 GM in D5W MINI-BAG PLUS 50 ML IV ONE (16:30)
[2017-05-23] MEDS ORDERED: DICL1GEL3 TOP (16:43)
[2017-05-23] MEDS ORDERED: MIRA33504 PO (16:43)
[2017-05-23] MEDS ORDERED: DEXTROSE 50% 50 ML SYRINGE IV PRN (17:45)
[2017-05-23] MEDS ORDERED: IPRATROPIUM 0.5MG/ALBUTEROL 2.5MG INH SOL UD 3ML (DUONEB)(J7620) NEB PRN (17:45)
[2017-05-23] MEDS ORDERED: GLUCAGON FOR INJ 1 MG VIAL (J1610) SC PRN (17:45)
[2017-05-23 18:35] VITALS: BP 185/95
[2017-05-23] MEDS: ATENOLOL 50 MG TAB PO SCH (20:00)
[2017-05-23] MEDS: IPRATROPIUM 0.5MG/ALBUTEROL 2.5MG INH SOL UD 3ML (DUONEB)(J7620) NEB SCH (20:00)
[2017-05-23] MEDS ORDERED: cloNIDine 0.2 MG TAB PO ONE (20:45)
[2017-05-23] MEDS ORDERED: ESCITALOPRAM OXALATE 10 MG TAB (LEXAPRO) PO SCH (21:00)
[2017-05-23] MEDS: SYMBICORT 160/4.5MCG INHALER 6GM INH SCH (21:00)
[2017-05-23] MEDS: LORazepam 1 MG TAB PO SCH (21:10)
[2017-05-23 21:35] VITALS: BP 180/96
--- NOTE | 2017-05-23 21:59 | HPE ---
DATE OF ADMISSION: 05/23/2017 PRIMARY CARE PROVIDER: Lupe Alcazar NP CHIEF COMPLAINT: Shortness of breath. HISTORY OF PRESENT ILLNESS: The patient is a 66-year-old female with a past medical history of chronic obstructive pulmonary disease (COPD) and home oxygen. She was recently discharged about one month ago after treatment for a COPD exacerbation. She returns today with shortness of breath. She is unable to give me any information because of mild dementia. My history is from her chart and the emergency department doctor. She appears quite lethargic but arousable. REVIEW OF SYSTEMS: Unable to obtain. PAST MEDICAL HISTORY: 1. End stage renal disease on hemodialysis. 2. COPD on chronic oxygen 2 liters. 3. Chronic back pain. 4. Hypothyroidism. 5. Depression. PAST SURGICAL HISTORY: Unable to obtain. FAMILY HISTORY: Unable to obtain. SOCIAL HISTORY: There is no documented smoking habit or alcohol abuse. ALLERGIES: CODEINE and LISINOPRIL. HOME MEDICATIONS: Includes: - albuterol sulfate 2.5 mg inhalation every four hours as needed for shortness of breath - ipratropium bromide, Atrovent 17 mcg two puffs four times a day as needed for shortness of breath - MiraLAX powder 17 grams by mouth daily - Activella 1-0.5 mg tablet, takes one daily - Arielle-Roby 1 mg tablet a day - Incruse Ellipta 62.5 mcg inhalation daily - baby aspirin - atenolol 50 mg by mouth twice a day - Symbicort 160/4.5 mcg two puffs inhalation twice a day - Lexapro 10 mg tablet, takes 30 mg at nighttime - levothyroxine 135 mcg by mouth daily - lorazepam 1 mg by mouth three times a day - losartan potassium 100 mg by mouth daily - oxycodone/acetaminophen 5/325 mg one tablet by mouth every 6 hours as needed for pain PHYSICAL EXAMINATION: VITAL SIGNS: Blood pressure last was 180/100, pulse 60, respiratory rate 16, oxygen saturation 97% on 2 liters of oxygen, temperature 98.6 degrees Fahrenheit. GENERAL: She is lethargic. Appears weak and anorexic and cachectic. HEENT: Pupils are equal and reactive to light. Extraocular movements intact. Mucous membranes dry. Anicteric sclerae. CARDIOVASCULAR SYSTEM: S1, S2 present with a regular rate. RESPIRATORY SYSTEM: Really poor respiratory effort with decreased breath sounds at the bases. GASTROINTESTINAL: Abdomen is soft, nontender, nondistended. Bowel sounds are normal. MUSCULOSKELETAL SYSTEM: No edema, cyanosis, or calf tenderness. SKIN: Quite dry and scaly. NEUROLOGIC: Deferred, unable to evaluate at this time. LABORATORY DATA: Hematology: White blood cell count 9.4 thousand, hemoglobin 11, hematocrit 35, platelets 106. Chemistry: Sodium 136, potassium 3.8, chloride 98, bicarbonate 28, anion gap 10, BUN 36, creatinine 5.34, fasting glucose 65, calcium 8.0, total bilirubin 1.0, direct bilirubin 0.4. Liver function tests within normal limits except for total protein low at 5.6. TSH 5.170. Troponin I negative at 0.206, CK-MB 5.1. Urinalysis positive protein, trace ketones, negative leukocyte esterase, WBC 2, white blood cells 6, bacteria +1. IMAGING STUDIES: Chest x-ray could not exclude subtle right lower lobe infiltrate. CT scan of the head with age-related atrophy and microvascular ischemic changes. No acute intracranial pathology. EKG with normal sinus rhythm, 66 beats per minute with left anterior vesicular block. IMPRESSION: 1. Healthcare acquired pneumonia. The patient has been given a dose of vancomycin and Zosyn in the emergency department, will continue. We will defer to infectious disease for dosing. 2. Hypertension. Blood pressure uncontrolled. Dose of metoprolol given. Her chronic medications are resumed. 3. History of end stage renal disease. She was dialyzed today. We will consult renal to continue hemodialysis in house. 4. History of chronic obstructive pulmonary disease (COPD), stable. 5. History of depression and hypothyroidism. We will continue Lexapro and Synthroid. 6. Deep vein thrombosis (DVT) prophylaxis with subcutaneous heparin.
[2017-05-23] MEDS: HEPARIN SOD (PORCINE) 5000 UNITS/ML VIAL SC SCH (22:00)
[2017-05-23] MEDS ORDERED: DOCUSATE SODIUM 100 MG CAP PO ONE (23:15)
[2017-05-23] MEDS ORDERED: LOSARTAN 50 MG TAB PO ONE (23:30)
[2017-05-23] MEDS: PERCOCET 5MG/325MG TAB PO PRN (23:58)
[2017-05-24] MEDS: PIPERACILLIN/TAZOBACTAM SOD 2.25 GM in D5W MINI-BAG PLUS 50 ML IV SCH ×3 (00:02→17:56)
[2017-05-24 00:30] VITALS: BP 158/90
[2017-05-24] MEDS: HEPARIN SOD (PORCINE) 5000 UNITS/ML VIAL SC SCH ×3 (03:03→20:30)
[2017-05-24] MEDS: LORazepam 1 MG TAB PO SCH ×3 (06:09→20:30)
[2017-05-24] MEDS: LEVOTHYROXINE 137MCG TABLET (0.137MG) PO SCH (06:09)
[2017-05-24] MEDS: LOSARTAN 50 MG TAB PO SCH (06:12)
[2017-05-24] MEDS: ATENOLOL 50 MG TAB PO SCH ×2 (06:13→20:30)
[2017-05-24 06:17] LABS: BASO % 0.4 % (0.0-1.0); EOS # 0.1 K/mm3 (0.0-0.50); EOS % 1.9 % (0.0-3.0); LARGE UNSTAINED CELL # 0.1 K/mm3 (0.0-0.4); LARGE UNSTAINED CELL % 1.2 % (0.0-4.0); LYMPH # 0.9 K/mm3 (1.5-4.5); LYMPH % 13.1 % (24.0-44.0); MEAN CORPUSCULAR HEMOGLOBIN 31.3 pg (27.0-33.0); MEAN CORPUSCULAR HGB CONC 32.2 g/dl (32.0-36.5); MEAN CORPUSCULAR VOLUME 97.2 fl (80.0-96.0); MONO # 0.3 K/mm3 (0.0-0.8); MONO % 4.8 % (0.0-5.0); NEUTROPHILS # 5.5 K/mm3 (1.8-7.7); NEUTROPHILS % 78.6 % (36.0-66.0); PLATELET COUNT, AUTOMATED 112 k/mm3 (150-450)
[2017-05-24 06:42] VITALS: BP 160/100
[2017-05-24 06:43] VITALS: BP 160/100
[2017-05-24 06:50] LABS: ALBUMIN 2.8 GM/DL (3.2-5.2); ALBUMIN/GLOBULIN RATIO 1.4 (1.00-1.93); BILIRUBIN,TOTAL 0.7 MG/DL (0.2-1.0); CALCIUM LEVEL 7.3 MG/DL (8.8-10.2); CREATININE FOR GFR 5.68 MG/DL (0.55-1.02); GLOMERULAR FILTRATION RATE 7.9 (>45); TOTAL PROTEIN 4.8 GM/DL (6.4-8.2)
--- NOTE | 2017-05-24 07:29 | ECGEPIP ---
Stationary ECG Study [facility] - ED Test Date: 2017-05-23 Pat Name: CHIQUITA FELIPE Department: Room: - Gender: F [employer]: bill : [id number] Requested By: SANTINO Luna Order Number: [id number] Reading MD: Jennifer Mendoza Measurements Intervals [place] Rate: 66 P: 76 NE: 150 QRS: -56 QRSD: 85 T: -31 QT: 426 QTc: 447 Interpretive Statements SINUS RHYTHM LEFT ANTERIOR FASCICULAR BLOCK DELAYED R PROGRESSION NSTTW ABNORMALITY DECREASED RATE 04/27/17 Electronically Signed On 05-24-2017 7:29:04 EDT by Jennifer Mendoza
[2017-05-24 07:45] VITALS: BP 160/95
[2017-05-24] MEDS: ASPIRIN 81 MG ENTERIC TAB PO SCH (07:45)
[2017-05-24] MEDS: IPRATROPIUM 0.5MG/ALBUTEROL 2.5MG INH SOL UD 3ML (DUONEB)(J7620) NEB SCH ×3 (08:00→20:00)
[2017-05-24 08:01] LABS: FREE T4 0.95 NG/DL (0.76-1.46)
[2017-05-24] MEDS: SYMBICORT 160/4.5MCG INHALER 6GM INH SCH ×2 (08:52→21:00)
[2017-05-24 14:00] VITALS: BP 139/86
[2017-05-24 14:13] VITALS: BP 158/86
--- NOTE | 2017-05-24 16:50 | REP ---
Clinical: Acute respiratory distress. Comparison: 05/10/2017. Findings: Advanced COPD and emphysematous changes are appreciated. In comparison with prior examination there is new mild mucous plugging and associated trace atelectasis involving the right lower lobe. No further consolidation. No pleural effusion or pneumothorax. Mediastinum demonstrates atherosclerotic changes to the thoracic aorta and coronary arteries along with aneurysmal dilatation to the ascending aorta measuring 4.1 cm maximal diameter. No obvious adenopathy. Musculoskeletal structures demonstrate age-related changes without focal osseous abnormality. Upper abdomen compatible with known polycystic kidney disease. Impression: COPD and emphysematous changes with superimposed mild mucous plugging and trace atelectasis to the right lower lobe. Signed by Colin Mathew MD 05/24/2017 04:42 P
[2017-05-25] MEDS: PIPERACILLIN/TAZOBACTAM SOD 2.25 GM in D5W MINI-BAG PLUS 50 ML IV SCH ×2 (00:43→09:37)
[2017-05-25] MEDS: IPRATROPIUM 0.5MG/ALBUTEROL 2.5MG INH SOL UD 3ML (DUONEB)(J7620) NEB SCH ×4 (01:09→20:00)
[2017-05-25] MEDS: HEPARIN SOD (PORCINE) 5000 UNITS/ML VIAL SC SCH ×3 (05:08→20:49)
--- NOTE | 2017-05-25 05:28 | IPN ---
DATE: 05/24/2017 SUBJECTIVE: The patient is seen and examined in the room today. The patient has decreased alertness and awakeness. The patient is barely verbal. The patient's daughter is also around the bedside. Per the daughter, the patient started having altered mental status change and became more weak and lethargic since last Tuesday, and her mentation has been getting worse. It never happened before. At the baseline, the patient is very functional, able to take care of herself. Per the patient's daughter, the patient also started having increasing problem with her breathing. The patient does have chronic obstructive pulmonary disease (COPD), and the patient was recently admitted for COPD exacerbation. OBJECTIVE: VITAL SIGNS: Temperature is 98.9, pulse 62, respirations 19, blood pressure is 198/104. Later recheck was 160/95. Oxygen saturation is 97% with two liters nasal cannula. GENERAL: Lethargic, barely verbal, not able to answer questions. Patient partially oriented. Not able to answer many questions. HEENT: Normocephalic, atraumatic. CARDIOVASCULAR: Positive S1, S2. Regular rate. LUNGS: Positive wheezes. Poor respiratory effort. Decreased breath sounds. ABDOMEN: Soft, nontender, nondistended. Bowel sounds present. EXTREMITIES: No edema. No sign of cyanosis. LABORATORY DATA: WBC 7, hemoglobin 9.9, hematocrit 30.7, platelet count is 112. Sodium is 135, potassium 4, chloride 99, carbon dioxide 27, BUN 42, creatinine 5.68, GFR is 7.8. Fasting glucose is 72. Calcium is 7.3. Total bilirubin 0.7, AST 22, ALT 19, alkaline phosphatase 102. Total protein 4.8, albumin 2.8. Free T4 is 0.95. ASSESSMENT AND PLAN: 1. Altered mental status. This is suspect that the patient may have pneumonia, and the patient was started empirically on antibiotics vancomycin and Zosyn in the emergency room. Now the patient is on Zosyn. We will follow with CT of the chest. Urine culture showed contamination. 2. End-stage renal disease on hemodialysis. The patient had dialysis on 05/24/2017. We appreciate nephrology's assistance. 3. History of COPD. 4. Hypothyroidism. Patient on Synthroid. The patient's free T4 within normal range. 5. History of depression, on Lexapro. 6. Anemia of chronic disease. No sign of active bleeding. Continue to monitor. 7. Deep venous thrombosis (DVT) prophylaxis. Heparin was ordered since admission. However, the patient has been refusing the heparin. The patient will be placed on thromboembolism deterrent stockings (TEDs) and sequential compression devices. MTDD
[2017-05-25 06:00] VITALS: BP 188/106
[2017-05-25] MEDS: LEVOTHYROXINE 137MCG TABLET (0.137MG) PO SCH (06:15)
[2017-05-25] MEDS: LORazepam 1 MG TAB PO SCH ×3 (06:29→20:49)
--- NOTE | 2017-05-25 06:33 | IPN ---
DATE: 05/24/2017 Mrs. Blackmon is seen during hemodialysis this morning. She remains somewhat confused and slow to respond. She did not have any particular complaints. Temperature 98.9 degrees Fahrenheit, heart rate 60 per minute and respiratory rate 20 per minute. Blood pressure 160/95 mmHg. Ears, nose and throat are unremarkable. Neck is supple and without JVD or thyroid enlargement. Heart sounds are regular. Lungs have diminished breath sounds bilaterally. Abdomen is soft and large polycystic kidneys are palpable and nontender. Extremities have no cyanosis or clubbing. She has 2+ leg edema. PROBLEMS: 1. End-stage renal disease. The patient is currently being dialyzed. She will complete her 3-hour dialysis treatment today. She did miss her dialysis yesterday. 2. Shortness of breath. This is mostly related to chronic obstructive pulmonary disease (COPD). Two liters of fluid is being removed today and she is tolerating it well so far. 3. Uncontrolled hypertension. I did adjust her medications last evening. Now fluid is being removed which is likely to help with her blood pressure control. I will make further adjustments in her medications if needed after dialysis today. 4. Anemia. We will monitor it and recheck her CBC tomorrow. If it does not improve then we will consider giving her a dose of Aranesp.
[2017-05-25] MEDS: LOSARTAN 50 MG TAB PO SCH (06:36)
[2017-05-25] MEDS: ATENOLOL 50 MG TAB PO SCH ×2 (06:36→20:49)
[2017-05-25] MEDS: ASPIRIN 81 MG ENTERIC TAB PO SCH (06:36)
[2017-05-25 06:48] LABS: BASO % 0.3 % (0.0-1.0); EOS # 0.1 K/mm3 (0.0-0.50); EOS % 1.4 % (0.0-3.0); LARGE UNSTAINED CELL # 0.1 K/mm3 (0.0-0.4); LARGE UNSTAINED CELL % 2.3 % (0.0-4.0); LYMPH # 0.8 K/mm3 (1.5-4.5); LYMPH % 13.2 % (24.0-44.0); MEAN CORPUSCULAR HEMOGLOBIN 31.4 pg (27.0-33.0); MEAN CORPUSCULAR HGB CONC 32.1 g/dl (32.0-36.5); MEAN CORPUSCULAR VOLUME 97.6 fl (80.0-96.0); MONO # 0.3 K/mm3 (0.0-0.8); MONO % 4.4 % (0.0-5.0); NEUTROPHILS % 78.4 % (36.0-66.0); PLATELET COUNT, AUTOMATED 109 k/mm3 (150-450); RED CELL DISTRIBUTION WIDTH 17.7 % (11.5-14.5); WHITE BLOOD COUNT 6.3 K/mm3 (4.0-10.0)
[2017-05-25 07:14] LABS: ALBUMIN/GLOBULIN RATIO 1.2 (1.00-1.93); BILIRUBIN,TOTAL 0.8 MG/DL (0.2-1.0); CALCIUM LEVEL 8.1 MG/DL (8.8-10.2); CREATININE FOR GFR 4.58 MG/DL (0.55-1.02); GLOMERULAR FILTRATION RATE 10.1 (>45); POTASSIUM SERUM 3.7 MEQ/L (3.5-5.1); TOTAL PROTEIN 5.5 GM/DL (6.4-8.2)
[2017-05-25 08:00] VITALS: BP 178/90
--- NOTE | 2017-05-25 08:11 | CR ---
DATE OF CONSULTATION: 05/24/2017 REASON FOR CONSULTATION: To assist in the management of end-stage renal disease and shortness of breath. HISTORY OF PRESENT ILLNESS: Mrs. Blackmon is a 66-year-old female with known history of chronic obstructive pulmonary disease (COPD), on home oxygen with active smoking, history of longstanding hypertension, history of end-stage renal disease secondary to polycystic kidneys and hypothyroidism. She has osteoporosis with compression fracture of lumbar vertebra and was recently admitted to hospital. She was brought to the emergency room last evening with shortness of breath and some mild altered mentation. Her blood pressure was quite high and she was admitted with possible pneumonia. The patient is being treated with antibiotics. She did miss her dialysis treatment yesterday due to being in the emergency room and a nephrology consultation was requested for dialysis morning. PAST MEDICAL AND SURGICAL HISTORY: Significant for: 1. History of end-stage renal disease secondary to polycystic kidneys. 2. Hypertension. 3. COPD. 4. Hypothyroidism. 5. Depression. 6. Osteoporosis. 7. Compression fracture of lumbar spine. PAST SURGICAL HISTORY: Significant for AV fistula creation in her left arm. MEDICATIONS: Her home medications include albuterol nebulizers, Atrovent and ipratropium bromide inhalers, MiraLAX as needed, Arielle-Roby 1 tablet daily, INCRUSE Ellipta 62.5 mcg daily, aspirin 81 mg daily, atenolol 50 mg b.i.d., Symbicort inhaler 160/4.5 mcg 2 puffs b.i.d., Lexapro 10 mg 3 tablets at bedtime, levothyroxine 135 mcg daily, lorazepam 1 mg three times a day for anxiety, losartan 100 mg daily, Percocet 5/325 mg 1 tablet every 6 hours as needed for pain. ALLERGIES: The patient has allergy to: 1. CODEINE. 2. LISINOPRIL. PERSONAL AND SOCIAL HISTORY: Patient is chronic smoker. She smokes actively. There is no history of alcohol or drug use. FAMILY HISTORY: There is significant family history for polycystic kidney and hypertension. REVIEW OF SYSTEMS: No fever or chills reported at this point. The patient is still somewhat confused and lethargic. She is able to answer a few simple questions; however, she is not able to provide reliable information about her condition over last few days. She has chronic dyspnea and has been on home oxygen. Head and neck is negative for headache at present. She did have altered mentation. CAT scan of head was done in the emergency room last night, which did not show any acute infarct or bleed. Ears, nose and throat are unremarkable. Cardiovascular system negative for chest pain. She did have dyspnea on admission. Respiratory system is significant for COPD and pulmonary infiltrate for which she is being treated with antibiotics. She denies any hemoptysis. Gastrointestinal (GI) system is significant for poor appetite. She reports hemorrhoids. There is no abdominal pain, no nausea or vomiting. Genitourinary () system is significant for end-stage renal disease secondary to polycystic kidneys. Endocrine system is significant for hypothyroidism and secondary hyperparathyroidism. There is no history of diabetes. Psychosocial system is significant for depression and anxiety. Neurological system is negative for seizures or stroke. Musculoskeletal system is significant for chronic back pain and compression fracture. Hematological system is significant for anemia of chronic kidney disease. She has chronic thrombocytopenia. Skin is negative for rash or ulcers. PHYSICAL EXAMINATION: The patient is awake, slightly slow to respond and confused. Temperature is 98.9 degrees Fahrenheit, heart rate 64 per minute and respiratory rate 20 per minute. Blood pressure 160/100 mmHg and oxygen saturation 97% on 2 liters of oxygen. Head is atraumatic. Neck is supple and without JVD or thyroid enlargement. Oral mucosa is dry. Pupils equal and reactive to light and sclera is anicteric. Heart sounds are regular with systolic murmur, grade 2/6. Lungs with diminished breath sounds bilaterally and basilar crepitations. Abdomen is soft and large polycystic kidneys are palpable. Bowel sounds are normal. Extremities have no cyanosis or clubbing. Skin has no rash or ulcers. Neurologically she is awake, somewhat confused and slow to respond today. She is not at her baseline mentation. LABORATORY DATA: Today's labs show WBC count 7.0, hemoglobin 9.9 and hematocrit 30.7. Platelets are 112,000. Sodium 135 and potassium 4.0. BUN 42 and creatinine 5.68. Calcium level is 7.3. Urinalysis showed 3+ protein, only 2 WBCs and 6 RBCs. CAT scan of head was done which showed microvascular ischemic changes and no acute infarct, hemorrhage or mass. Chest x-ray in the emergency room showed a right lower lobe infiltrate and COPD. PROBLEMS: 1. End-stage renal disease. The patient did miss her dialysis treatment yesterday. We have already made arrangements for her dialysis this morning and she is being dialyzed at present. 2. Hypertension. Her blood pressure control was poor through the night. I did receive a call from her nurse last night at about 11:30. We did adjust her medications. This morning her blood pressure is somewhat better. We will resume her losartan 100 mg daily and continue with atenolol. We will make arrangements and adjustments for her antihypertensive meds after dialysis today if needed. 3. Hyponatremia. This is mild and will be corrected with hemodialysis. 4. Anemia. Most likely this is related to bleeding from her hemorrhoids and end-stage renal disease. We will check her iron studies. 5. Altered mentation. Most likely this is toxic and metabolic encephalopathy related to pneumonia and uncontrolled hypertension. At present we will monitor her closely. She is being treated for pneumonia and hypertension is also improving. 6. COPD. This a chronic issue and the patient has not been able to quit smoking. She will continue with nebulizers and inhalers.
[2017-05-25] MEDS ORDERED: MINOXIDIL 2.5 MG TAB PO ONE (12:00)
--- NOTE | 2017-05-25 12:27 | IPN ---
DATE: 05/25/2017 Mrs. Blackmon is seen this morning on her bedside. She is feeling better today and continues to have cough with back pain. She denies any nausea or vomiting. She has no fever. She just feels weak. Through the night, her blood pressure has been high. PHYSICAL EXAMINATION: Temperature 97.8 degrees Fahrenheit, heart rate 60 per minute and respiratory rate 20 per minute. Blood pressure 178/90 mmHg and oxygen saturation 98% on 1 liter oxygen. Head is atraumatic. Neck veins are mildly distended. She is chronically ill looking. Heart sounds are regular and lungs sound clear to auscultation. Abdomen is soft. Enlarged polycystic kidneys are nontender. Bowel sounds at present. Extremities have no cyanosis or clubbing. Skin has no rash or ulcers. Neurologically, she seems close to her baseline mentation. She has no focal deficit. On review of her laboratories, WBC count is 6.3, hemoglobin 10.9 and hematocrit 33.8. Sodium 137 and potassium 3.7. BUN 27 and creatinine 4.58. Ammonia level is less than 10. PROBLEMS: 1. End-stage renal disease. The patient was dialyzed yesterday. We will plan to dialyze her again either tomorrow or Tuesday, which will be her regular day. At present, her volume status is well-compensated and electrolytes are within normal range. There is no indication for urgent dialysis today. 2. Uncontrolled hypertension. Her blood pressure remains high. She has been on her home medications, including losartan and atenolol. I will start minoxidil 2.5 mg daily with first dose today. 3. Encephalopathy. She did have some altered mentation, which seems to have improved. At present, we will need to control her blood pressure better, which will likely help with her encephalopathy. 4. Chronic obstructive pulmonary disease (COPD) exacerbation. The patient remains on antibiotics and nebulizers along with steroids. She seems to be improving.
[2017-05-25] MEDS: PERCOCET 5MG/325MG TAB PO PRN (12:30)
[2017-05-25] MEDS: SYMBICORT 160/4.5MCG INHALER 6GM INH SCH ×2 (13:14→20:36)
[2017-05-25 14:00] VITALS: BP 174/93
[2017-05-25] MEDS: **hydrALAZINE HCL** 25 MG TAB PO SCH ×2 (14:00→20:49)
--- NOTE | 2017-05-25 15:45 | IPN ---
DATE: 05/25/2017 SUBJECTIVE: The patient seen and examined in the room today. The patient stated she is feeling better. Her breathing is also improving. However, the patient continues to show some sign of confusion. The patient is not fully oriented. OBJECTIVE: VITAL SIGNS: Temperature is 97.8, pulse is 58, respirations 20, blood pressure 180/106, pulse oximetry is 98% on 1 liter nasal cannula. GENERAL: The patient is alert and awake. The patient is not fully oriented. The patient's knows the name of the hospital and patient's name, but she thinks this is 1917. HEENT: Normocephalic, atraumatic. Extraocular movements grossly intact. CARDIOVASCULAR: Positive S1, S2, regular rate. LUNGS: Positive wheezes bilaterally and poor respiratory effort. ABDOMEN: Soft, nontender, nondistended. Bowel sounds present. No rebound. No guarding. EXTREMITIES: No edema. No sign of cyanosis. LABORATORY DATA: WBC 6.3, hemoglobin 10.9, hematocrit 33.8, platelet count is 109. Sodium is 137, potassium 3.7, chloride 100, carbon dioxide 28, BUN 27, creatinine is 4.58. GFR is 10.1. Fasting glucose 77, calcium is 8.1. Total bilirubin is 0.8. AST 24, ALT 20. Phosphorous 119. Ammonia level is less than 10. Total protein 5.5. Albumin level is 3. ASSESSMENT AND PLAN: 1. Hypertensive encephalopathy. It is suspected the patient may have significant physical stress and hypertensive urgency causing her mental status change. The patient had persistent hypertension, which is not normal for her. The patient's blood pressure medication is being adjusted with Dr. Mena's assistance. Initially, there was concern for possible pneumonia. Repeat CT scan does not show any significant findings. The patient was on empiric antibiotics and will be discontinued and switched to chronic obstructive pulmonary disease (COPD) exacerbation medications. 2. COPD exacerbation. Per family member, the patient does have worsening breathing. During physical exam, the patient has findings supportive of COPD exacerbation. The patient will be on COPD exacerbation treatment. 3. End-stage renal disease, on hemodialysis. The patient was dialyzed on May 24, 2017. We appreciate nephrology's assistance. 4. Hypothyroidism. On Synthroid. T4 is within normal range. 5. History of depression, on Lexapro. Due to current mental status changes the patient's Lexapro is on hold. 6. Anemia of chronic disease. No sign of active bleeding. No acute decrease in hemoglobin and hematocrit. Continue to monitor. 7. History of chronic back pain. 8. Deep venous thrombosis (DVT) prophylaxis. The patient is on heparin. However, the patient has been refusing the heparin. The patient was switched to thromboembolism deterrents (TEDs) and compression device. MTDD
[2017-05-25] MEDS: AZITHROMYCIN INJ 500 MG, VIAL MATE ADAPTER 1 EACH in D5W 250 ML IV SCH (16:21)
[2017-05-25] MEDS: methylPREDNISolone INJ 125 MG/2 ML VIAL (J2930) IV SCH (18:28)
[2017-05-25] MEDS: cefTRIAXone SOD 1 GM in D5W MINI-BAG PLUS 50 ML IV SCH (18:28)
[2017-05-25] MEDS ORDERED: ONDANSETRON 4MG/2ML VIAL (J2405) IV PRN (19:00)
[2017-05-25 22:00] VITALS: BP 184/70
[2017-05-26] MEDS: IPRATROPIUM 0.5MG/ALBUTEROL 2.5MG INH SOL UD 3ML (DUONEB)(J7620) NEB SCH ×4 (00:24→19:55)
[2017-05-26 06:00] VITALS: BP 190/98
[2017-05-26] MEDS: HEPARIN SOD (PORCINE) 5000 UNITS/ML VIAL SC SCH ×3 (06:00→22:00)
[2017-05-26] MEDS: methylPREDNISolone INJ 125 MG/2 ML VIAL (J2930) IV SCH ×2 (06:10→17:59)
[2017-05-26] MEDS: LOSARTAN 50 MG TAB PO SCH (06:11)
[2017-05-26] MEDS: cefTRIAXone SOD 1 GM in D5W MINI-BAG PLUS 50 ML IV SCH (06:11)
[2017-05-26] MEDS: ATENOLOL 50 MG TAB PO SCH ×2 (06:12→21:24)
[2017-05-26] MEDS: **hydrALAZINE HCL** 25 MG TAB PO SCH ×3 (06:12→21:24)
[2017-05-26] MEDS: ASPIRIN 81 MG ENTERIC TAB PO SCH (06:12)
[2017-05-26] MEDS: LEVOTHYROXINE 137MCG TABLET (0.137MG) PO SCH (06:12)
[2017-05-26 07:10] VITALS: BP 163/75
[2017-05-26] MEDS: SYMBICORT 160/4.5MCG INHALER 6GM INH SCH ×2 (07:55→19:55)
[2017-05-26] MEDS: LORazepam 1 MG TAB PO SCH ×3 (07:56→21:00)
[2017-05-26] MEDS: PERCOCET 5MG/325MG TAB PO PRN (10:19)
[2017-05-26 10:31] LABS: BASO % 0.2 % (0.0-1.0); EOS % 0.1 % (0.0-3.0); LARGE UNSTAINED CELL % 0.8 % (0.0-4.0); LYMPH # 0.4 K/mm3 (1.5-4.5); LYMPH % 8.6 % (24.0-44.0); MEAN CORPUSCULAR HGB CONC 32.5 g/dl (32.0-36.5); MEAN CORPUSCULAR VOLUME 95.4 fl (80.0-96.0); MONO # 0.1 K/mm3 (0.0-0.8); MONO % 2.2 % (0.0-5.0); NEUTROPHILS # 3.6 K/mm3 (1.8-7.7); NEUTROPHILS % 88.1 % (36.0-66.0); PLATELET COUNT, AUTOMATED 135 k/mm3 (150-450); RED CELL DISTRIBUTION WIDTH 17.8 % (11.5-14.5); WHITE BLOOD COUNT 4.1 K/mm3 (4.0-10.0)
[2017-05-26 11:19] LABS: ALBUMIN 2.9 GM/DL (3.2-5.2); ALBUMIN/GLOBULIN RATIO 1.16 (1.00-1.93); BILIRUBIN,TOTAL 0.7 MG/DL (0.2-1.0); CALCIUM LEVEL 7.8 MG/DL (8.8-10.2); CREATININE FOR GFR 5.35 MG/DL (0.55-1.02); GLOMERULAR FILTRATION RATE 8.5 (>45); POTASSIUM SERUM 4.2 MEQ/L (3.5-5.1); TOTAL PROTEIN 5.4 GM/DL (6.4-8.2)
[2017-05-26] MEDS ORDERED: LIDOCAINE 1% SDV 5 ML VIAL SQ ONE (11:45)
--- NOTE | 2017-05-26 12:43 | IPN ---
DATE: 05/26/2017 Mrs. Blackmon is seen this morning on her bedside during hemodialysis. She has a complaint of severe pain in her back at the site of her vertebral fracture. She denies any nausea, vomiting, dyspnea or chest pain. PHYSICAL EXAMINATION: Temperature 97.7 degrees Fahrenheit, heart rate 60 per minute and respiratory rate 20 per minute. Blood pressure 163/75 mmHg and oxygen saturation 96% on room air. Head is atraumatic. She looks chronically ill and malnourished. Neck is supple and without jugular venous distention (JVD) or thyroid enlargement. Heart sounds are regular and lungs sound clear to auscultation. Abdomen is soft with large polycystic kidneys, which are palpable and nontender. Extremities have no cyanosis or clubbing. She has 2+ edema on her legs. Today's labs show WBC count 4.1, hemoglobin 10.7 and hematocrit 32.9. Sodium 135 and potassium 4.2. BUN 37 and creatinine 5.35. Glucose 119 and calcium 7.8. PROBLEMS: 1. End-stage renal disease. The patient is currently being dialyzed. We will plan to continue with 3-hour treatment today. She is tolerating her dialysis treatment well. 2. Hypertension. Blood pressure control remains suboptimal. Probably pain is contributing to her high blood pressure. Her volume status is also slightly decompensated. We are trying to remove about 2 liters of fluid and she seems to be tolerating it well. 3. Back pain with compression fracture of lumbar vertebra. The patient remains on Percocet every few hours. 4. Chronic obstructive pulmonary disease (COPD) exacerbation and possible pneumonia. The patient remains on ceftriaxone and azithromycin. She is currently afebrile.
[2017-05-26 14:00] VITALS: BP 153/82
[2017-05-26] MEDS: AZITHROMYCIN INJ 500 MG, VIAL MATE ADAPTER 1 EACH in D5W 250 ML IV SCH (16:19)
[2017-05-26 22:00] VITALS: BP 168/92
[2017-05-27] MEDS: IPRATROPIUM 0.5MG/ALBUTEROL 2.5MG INH SOL UD 3ML (DUONEB)(J7620) NEB SCH ×4 (01:33→19:37)
[2017-05-27] MEDS: PERCOCET 5MG/325MG TAB PO PRN (04:51)
[2017-05-27] MEDS: LEVOTHYROXINE 137MCG TABLET (0.137MG) PO SCH (05:50)
[2017-05-27] MEDS: methylPREDNISolone INJ 125 MG/2 ML VIAL (J2930) IV SCH (05:50)
[2017-05-27] MEDS: **hydrALAZINE HCL** 25 MG TAB PO SCH ×3 (05:50→22:27)
[2017-05-27] MEDS: HEPARIN SOD (PORCINE) 5000 UNITS/ML VIAL SC SCH ×4 (05:50→22:26)
[2017-05-27 06:00] VITALS: BP 178/90
[2017-05-27 06:58] LABS: CALCIUM LEVEL 8.4 MG/DL (8.8-10.2); CREATININE FOR GFR 4.14 MG/DL (0.55-1.02); GLOMERULAR FILTRATION RATE 11.4 (>45)
[2017-05-27 06:59] LABS: ALBUMIN/GLOBULIN RATIO 1.11 (1.00-1.93); BILIRUBIN,TOTAL 0.7 MG/DL (0.2-1.0); TOTAL PROTEIN 5.7 GM/DL (6.4-8.2)
[2017-05-27 07:06] LABS: BASO # 0.1 K/mm3 (0.0-0.2); BASO % 1.1 % (0.0-1.0); EOS % 0.1 % (0.0-3.0); LARGE UNSTAINED CELL # 0.1 K/mm3 (0.0-0.4); LARGE UNSTAINED CELL % 1.9 % (0.0-4.0); LYMPH # 0.8 K/mm3 (1.5-4.5); MEAN CORPUSCULAR HEMOGLOBIN 31.1 pg (27.0-33.0); MEAN CORPUSCULAR HGB CONC 32.6 g/dl (32.0-36.5); MEAN CORPUSCULAR VOLUME 95.3 fl (80.0-96.0); MONO # 0.4 K/mm3 (0.0-0.8); MONO % 5.8 % (0.0-5.0); NEUTROPHILS # 4.8 K/mm3 (1.8-7.7); NEUTROPHILS % 79.2 % (36.0-66.0); PLATELET COUNT, AUTOMATED 149 k/mm3 (150-450); RED CELL DISTRIBUTION WIDTH 18.4 % (11.5-14.5); WHITE BLOOD COUNT 6.1 K/mm3 (4.0-10.0)
[2017-05-27] MEDS: SYMBICORT 160/4.5MCG INHALER 6GM INH SCH ×2 (07:45→19:35)
[2017-05-27] MEDS: ASPIRIN 81 MG ENTERIC TAB PO SCH (10:39)
[2017-05-27] MEDS: LOSARTAN 50 MG TAB PO SCH (10:42)
[2017-05-27] MEDS: ATENOLOL 50 MG TAB PO SCH ×2 (10:42→20:45)
[2017-05-27] MEDS ORDERED: AZIT500T2 PO (10:48)
[2017-05-27] MEDS ORDERED: PRED10TA2 PO (10:48)
[2017-05-27] MEDS ORDERED: HYDR25TA PO (10:48)
[2017-05-27] MEDS: LORazepam 1 MG TAB PO SCH ×3 (10:53→20:43)
[2017-05-27 14:00] VITALS: BP 154/78
--- NOTE | 2017-05-27 15:40 | IPN ---
DATE: 05/26/2017 SUBJECTIVE: The patient is seen and examined in the room after the hemodialysis. The patient still having sign of confusion. In the beginning of encounter, the patient stated she is at her house, this is 1918, the president is Sergey Barba. However, after multiple minutes of redirection, the patient realized that she is at [facility] and this is 2017, and she was laughing about her mistake. The patient stated her breathing is improving. No overnight events reported. OBJECTIVE: VITAL SIGNS: Temperature is 98.4, pulse is 64, respirations 16, blood pressure 153/82. GENERAL: No sign of acute distress. The patient is alert and awake. The patient is not fully oriented. The patient is only oriented to the name of the president. However, her mental status shows some slight improvement compared to yesterday. HEENT: Normocephalic. Extraocular motor grossly intact. CARDIOVASCULAR: Positive S1, S2. Regular rate. LUNGS: Clear to auscultation bilaterally. Poor respiratory effort. ABDOMEN: Soft, nontender, nondistended. Bowel sounds present. No rebound, no guarding. EXTREMITIES: No edema, no sign of cyanosis. LABORATORY DATA: WBC is 4.1, hemoglobin 10.7, hematocrit 32.9, platelet count is 135. Sodium is 135, potassium 4.2, chloride 98, carbon dioxide 25, BUN 37, creatinine 5.35, GFR is 8.5, fasting glucose 119, calcium 7.8, total bilirubin 0.7, AST 21, ALT 21, alkaline phosphatase 109. Total protein is 5.4, albumin 2.9. ASSESSMENT AND PLAN: 1. Hypertensive encephalopathy.Ppresented with confusion for days The patient continues to have persistent confusion that is improving. Currently will treat the patient for chronic obstructive pulmonary disease (COPD) exacerbation and hypertensive urgency. This combination may be cause of significant stress for the patient. Imaging study showed no significant findings. 2. COPD exacerbation. The patient's breathing is improving. Continue current COPD exacerbation treatment. 3. End-stage renal disease on hemodialysis. The patient had hemodialysis today. We will refer the patient's dialysis care to the nephrology team. 4. Hypothyroidism on Synthroid. 5. History of depression on Lexapro. Due to mental status changes, Lexapro was on hold. 6. Anemia of chronic disease. No sign of active bleeding. Continue to monitor. 7. History of chronic back pain. 8. Deep venous thrombosis (DVT). The patient is on thromboembolism deterrent stockings (TEDs) and sequential compression devices. DIEGOD
--- NOTE | 2017-05-27 16:16 | IPN ---
DATE: 05/27/2017 SUBJECTIVE: The patient seen and examined in the room today. The patient's mentation shows significant improvement. The patient knows that she is in the [facility], this is 2017, and the president is Sergey Barba. The patient is asking when she can go home. Her breathing continues to show significant improvement. However, the patient still has uncontrolled blood pressures. OBJECTIVE: VITAL SIGNS: Temperature is 98, pulse is 51, respirations 18, blood pressure 178/90, pulse oximetry is 96% on room air. GENERAL: No sign of acute distress. Alert and oriented times three. HEENT: Normocephalic, atraumatic. Extraocular movements grossly intact. CARDIOVASCULAR: Positive S1, S2, regular rate. LUNGS: Clear to auscultation bilaterally. Poor respiratory effort. No significant wheezes can be appreciated. ABDOMEN: Soft, nontender, nondistended. Bowel sounds present. No rebound. No guarding. EXTREMITIES: No edema. No sign of cyanosis. LABORATORY DATA: WBC 6.1, hemoglobin 10.7, hematocrit 32.9, platelet count is 149. Sodium is 135, potassium 4, chloride is 98, carbon dioxide 27, BUN 30, creatinine is 4.14. GFR is 11.4. Fasting glucose 97, calcium is 8.4, total bilirubin is 0.7. AST 22, ALT 20, alkaline phosphatase 115, total protein is 5.7, albumin 3. ASSESSMENT AND PLAN: 1. Mental status changes. The patient is approaching her baseline. The patient has been undergoing chronic obstructive pulmonary disease (COPD) exacerbation treatments. The patient is also being dialyzed on a regular basis. However, the patient still has high blood pressure, which has been very difficult to control. The patient's altered mental status could be due to the patient's acute physical distress. The patient's mentation is improving. The patient's medication will be restarted. 2. COPD exacerbation. We are tapering down the patient's steroids. The patient is to continued taking azithromycin. 3. End-stage renal disease, on hemodialysis. The patient will be on dialysis days of Tuesday, and Tuesday. The patient will be dialyzed tomorrow. 4. Hypothyroidism. On Synthroid. 5. Depression, previously due to mental status changes. Lexapro was on hold. We will restart it. 6. Anemia of chronic disease. No sign of active bleeding. We will continue to monitor the hemoglobin and hematocrit. 7. History of chronic back pain. 8. Deep venous thrombosis (DVT) prophylaxis. On thromboembolism deterrents (TEDs) and compression device. The patient continues to refuse heparin.
[2017-05-27] MEDS: ESCITALOPRAM OXALATE 10 MG TAB (LEXAPRO) PO SCH (17:16)
--- NOTE | 2017-05-27 17:38 | IPN ---
DATE: 05/27/2017 Mrs. Blackmon is seen this morning on her bedside. She is feeling better and wants to go home. She denies any dyspnea, chest pain, nausea or vomiting. She is answering questions appropriately. She reports that she was able to get up and walk to the bathroom without difficulty. PHYSICAL EXAMINATION: Temperature 98.0 degrees Fahrenheit, heart rate 50 per minute and respiratory rate 18 per minute. Blood pressure 178/90 mmHg and oxygen saturation 96% on 2 liters oxygen. Head is atraumatic. Neck is supple and without jugular venous distention (JVD) or thyroid enlargement. Ears, nose and throat are unremarkable. Heart sounds are regular and bradycardic. Lung sounds clear to auscultation. Abdomen: Soft and large. Polycystic kidneys are palpable. Bowel sounds are normal. Extremities have no cyanosis or clubbing. Skin has no rash or ulcers. Neurologically, she seems to be awake, alert and oriented times three. To me, she seems to be at her baseline mentation. Today's labs show WBC count 6.1, hemoglobin 10.7 and hematocrit 32.9. Sodium 135, potassium 4.0. BUN 30 and creatinine 4.14. PROBLEM #1: End-stage renal disease. The patient was dialyzed yesterday. She is regularly dialyzed on Tuesday, Tuesday and Tuesday schedule as an outpatient. I feel that she is at risk for getting decompensated by Tuesday. I have advised her that if she gets discharged, then she should go to outpatient dialysis clinic today. PROBLEM #2: Hypertension. Her blood pressure remains somewhat high. Medications have been adjusted. She needs to get further fluid removal which will help with the blood pressure control. The patient will be dialyzed later this afternoon, either inpatient or outpatient, depending upon her discharge. PROBLEM #3: Disposition: From a renal standpoint, the patient can be discharged to home today if she gets cleared by physical therapy. She will go to outpatient dialysis clinic in that situation at 2:30 p.m. today.
[2017-05-27] MEDS: AZITHROMYCIN INJ 500 MG, VIAL MATE ADAPTER 1 EACH in D5W 250 ML IV SCH (19:20)
[2017-05-27] MEDS: predniSONE 20 MG TAB PO SCH (20:43)
[2017-05-28] MEDS: IPRATROPIUM 0.5MG/ALBUTEROL 2.5MG INH SOL UD 3ML (DUONEB)(J7620) NEB SCH ×4 (01:34→19:17)
[2017-05-28] MEDS: LEVOTHYROXINE 137MCG TABLET (0.137MG) PO SCH (05:37)
[2017-05-28] MEDS: HEPARIN SOD (PORCINE) 5000 UNITS/ML VIAL SC SCH ×3 (05:38→22:15)
[2017-05-28] MEDS: **hydrALAZINE HCL** 25 MG TAB PO SCH ×3 (05:38→22:16)
[2017-05-28 05:54] LABS: BASO % 0.1 % (0.0-1.0); LARGE UNSTAINED CELL # 0.1 K/mm3 (0.0-0.4); LARGE UNSTAINED CELL % 0.9 % (0.0-4.0); LYMPH # 0.6 K/mm3 (1.5-4.5); LYMPH % 9.7 % (24.0-44.0); MEAN CORPUSCULAR HEMOGLOBIN 30.8 pg (27.0-33.0); MEAN CORPUSCULAR HGB CONC 32.5 g/dl (32.0-36.5); MEAN CORPUSCULAR VOLUME 94.9 fl (80.0-96.0); MONO # 0.2 K/mm3 (0.0-0.8); MONO % 2.6 % (0.0-5.0); NEUTROPHILS # 5.2 K/mm3 (1.8-7.7); NEUTROPHILS % 86.7 % (36.0-66.0); PLATELET COUNT, AUTOMATED 189 k/mm3 (150-450); RED CELL DISTRIBUTION WIDTH 18.3 % (11.5-14.5)
[2017-05-28 05:55] VITALS: BP 182/90
[2017-05-28 06:22] LABS: ALBUMIN 3.1 GM/DL (3.2-5.2); ALBUMIN/GLOBULIN RATIO 1.15 (1.00-1.93); BILIRUBIN,TOTAL 0.8 MG/DL (0.2-1.0); CREATININE FOR GFR 5.04 MG/DL (0.55-1.02); GLOMERULAR FILTRATION RATE 9.1 (>45); TOTAL PROTEIN 5.8 GM/DL (6.4-8.2)
[2017-05-28] MEDS: predniSONE 20 MG TAB PO SCH ×2 (06:42→20:24)
[2017-05-28] MEDS: ASPIRIN 81 MG ENTERIC TAB PO SCH (06:43)
[2017-05-28] MEDS: ATENOLOL 50 MG TAB PO SCH ×2 (06:43→20:25)
[2017-05-28] MEDS: LOSARTAN 50 MG TAB PO SCH (06:44)
[2017-05-28] MEDS: ESCITALOPRAM OXALATE 10 MG TAB (LEXAPRO) PO SCH (06:47)
[2017-05-28] MEDS: LORazepam 1 MG TAB PO SCH ×3 (06:47→20:26)
[2017-05-28] MEDS: SYMBICORT 160/4.5MCG INHALER 6GM INH SCH ×2 (08:18→19:16)
--- NOTE | 2017-05-28 12:55 | IPN ---
DATE OF VISIT: 05/28/2017 SUBJECTIVE: Patient seen and examined in dialysis. Patient's mentation is improving. Patient knows she is in the [facility], dialysis suite, this is 2017. Patient denies any difficulty breathing. No overnight events reported. OBJECTIVE: VITAL SIGNS: Temperature 97.7, pulse is 57, respirations 18, blood pressure 182/90, pulse oximetry is 97% on room air. GENERAL: No sign of acute distress or fatigued. Alert and oriented times three. HEENT: Normocephalic, atraumatic. Extraocular movements grossly intact. CARDIOVASCULAR: Positive S1, S2, regular rate. LUNGS: Clear to auscultation bilaterally. Poor respiratory effort . ABDOMEN: Soft, nontender, nondistended. Bowel sounds present. No rebound. No guarding. EXTREMITIES: No edema. No sign of cyanosis. LABORATORY DATA: WBC 6, hemoglobin 11.1, hematocrit 34.2, platelet count is 189. Sodium is 137, potassium 4, chloride is 100, carbon dioxide 38, BUN 45, creatinine 5.04, GFR is 9.1, fasting glucose 93, calcium 8, total bilirubin is 0.8. AST 16, ALT 22, alkaline phosphatase is 113, albumin 3.1. ASSESSMENT AND PLAN: 1. Hypertensive encephalopathy. Presented with confusion for days. The patient' s mentation has been improving. It approaching her baseline. Currently, patient is being treated for chronic obstructive pulmonary disease (COPD) exacerbation. Blood pressure has been very difficult to control. 2. COPD exacerbation. Patient is on tapering dose of steroids. The patient is continued on azithromycin. 3. End-stage renal disease, on hemodialysis. Patient's dialysis days are Tuesday, , and Tuesday. We appreciate paper cutter operator's assistance. 4. Hypothyroidism. On Synthroid. 5. Depression. Patient is on Lexapro now. 6. Anemia of chronic. No active bleeding. Continue to monitor. 7. History of chronic back pain. 8. Deep venous thrombosis (DVT) prophylaxis. Patient on thromboembolism deterrents (TEDs) and sequential compression device. MTDD
[2017-05-28 14:00] VITALS: BP 154/98
[2017-05-28] MEDS ORDERED: AZITHROMYCIN 250 MG TAB PO SCH (16:00)
--- NOTE | 2017-05-28 16:46 | IPN ---
DATE: 05/28/2017 SUBJECTIVE: The patient was seen and examined at the bedside today morning during hemodialysis procedure. The patient was tolerating the hemodialysis procedure, but later on she became nauseated. She had to be given normal saline, and ultrafiltration was stopped. REVIEW OF SYSTEMS: The patient reports nausea, dry heaves, abdominal discomfort. Otherwise, she denies any chest pain or shortness of breath. OBJECTIVE: VITAL SIGNS: Temperature is 97.7 degrees Fahrenheit, blood pressure is 182/90, pulse is 57, respiratory rate of 18, saturating 97% on room air. INTAKE AND OUTPUT: Urine output recorded as only 50 mL yesterday. Weight in the bed scale is 37.1 kg. PHYSICAL EXAMINATION: GENERAL: The patient is awake, alert, and oriented times three, lying in bed getting hemodialysis. The patient is nauseated at this time. HEAD/NECK: Extraocular muscles intact. Pupils equal, round, and reactive to light. The patient is weak and cachectic. Neck is supple. There is no jugular venous distention (JVD). CARDIOVASCULAR: S1, S2. Regular rate. No murmur, rub, or gallop. RESPIRATORY: Chest is clear to auscultation bilaterally. Mild expiratory rhonchi at the bases. ABDOMEN: Soft. Large polycystic kidneys are palpable. Mild tenderness to palpation in epigastrium. MUSCULOSKELETAL: Extremities have 2+ pulses. No edema. No cyanosis. CENTRAL NERVOUS SYSTEM (DRAFTER ASSISTANT): No focal neurological deficit. Power is 5/5 in bilateral extremities. LABORATORY DATA: CBC showed a WBC 6, hemoglobin 11.1, platelets 189. BMP showed sodium 137, potassium 4, chloride 100, bicarbonate 28, BUN 45, creatinine 5. Calcium is 8. Albumin 3.1. CURRENT INPATIENT MEDICATIONS: The patient's medications were all reviewed by me. Solu-Medrol has been stopped now. She is currently on prednisone 40 mg by mouth twice a day. Azithromycin has been stopped as well, and instead of intravenous (IV) azithromycin, she is on oral azithromycin 500 mg daily. There is no other change in the medication today as compared with yesterday. ASSESSMENT: A 66-year-old female with past medical history of end-stage renal disease on hemodialysis, chronic obstructive pulmonary disease (COPD), admitted this time because of shortness of breath, altered mental status. Nephrology service following the patient for management of end-stage renal disease. PLAN: 1. End-stage renal disease: The patient is being dialyzed again because of shortness of breath and fluid overload. Ultrafiltration goal will be 2 kg. The patient is symptomatic during hemodialysis. We had to give her 200 mL fluid bolus because of nausea. Her regular dialysis days are Tuesday, Tuesday, Tuesday. The patient will be switched back to Tuesday, Tuesday, Tuesday schedule starting next week. 2. Hypertension. Blood pressure is uncontrolled; however, the patient is getting further two liters of ultrafiltration which will help improve the blood pressure as well. Continue current dose of atenolol 50 mg by mouth twice a day. Hydralazine was started at 25 mg by mouth every eight hours two days ago. Continue losartan 100 mg by mouth daily, and continue atenolol 50 mg by mouth twice a day. 3. Anemia in end-stage renal disease. The patient's hemoglobin is acceptable at 11.1. No need of Aranesp administration at this time.
[2017-05-28 20:06] VITALS: BP 170/90
[2017-05-28 22:00] VITALS: BP 163/90
[2017-05-29] MEDS: IPRATROPIUM 0.5MG/ALBUTEROL 2.5MG INH SOL UD 3ML (DUONEB)(J7620) NEB SCH ×2 (02:00→07:57)
[2017-05-29] MEDS: **hydrALAZINE HCL** 25 MG TAB PO SCH (05:31)
[2017-05-29] MEDS: LEVOTHYROXINE 137MCG TABLET (0.137MG) PO SCH (05:32)
[2017-05-29 06:00] VITALS: BP 198/100
[2017-05-29] MEDS: HEPARIN SOD (PORCINE) 5000 UNITS/ML VIAL SC SCH (06:00)
[2017-05-29 06:22] LABS: EOS % 0.1 % (0.0-3.0); LARGE UNSTAINED CELL % 0.7 % (0.0-4.0); LYMPH # 0.6 K/mm3 (1.5-4.5); LYMPH % 9.8 % (24.0-44.0); MEAN CORPUSCULAR HEMOGLOBIN 31.3 pg (27.0-33.0); MEAN CORPUSCULAR HGB CONC 32.5 g/dl (32.0-36.5); MEAN CORPUSCULAR VOLUME 96.3 fl (80.0-96.0); MONO # 0.2 K/mm3 (0.0-0.8); MONO % 3.8 % (0.0-5.0); NEUTROPHILS % 85.5 % (36.0-66.0); PLATELET COUNT, AUTOMATED 155 k/mm3 (150-450); RED CELL DISTRIBUTION WIDTH 18.1 % (11.5-14.5); WHITE BLOOD COUNT 5.8 K/mm3 (4.0-10.0)
[2017-05-29 06:36] VITALS: BP 198/100
[2017-05-29 06:51] LABS: ALBUMIN/GLOBULIN RATIO 1.2 (1.00-1.93); BILIRUBIN,TOTAL 0.8 MG/DL (0.2-1.0); CALCIUM LEVEL 8.4 MG/DL (8.8-10.2); CREATININE FOR GFR 3.95 MG/DL (0.55-1.02); POTASSIUM SERUM 4.2 MEQ/L (3.5-5.1); TOTAL PROTEIN 5.5 GM/DL (6.4-8.2)
[2017-05-29] MEDS: ATENOLOL 50 MG TAB PO SCH (06:53)
[2017-05-29] MEDS: LOSARTAN 50 MG TAB PO SCH (06:54)
[2017-05-29] MEDS: SYMBICORT 160/4.5MCG INHALER 6GM INH SCH (07:34)
[2017-05-29 08:15] VITALS: BP 160/90
[2017-05-29] MEDS ORDERED: amLODIPine 5 MG TAB PO SCH (09:00)
[2017-05-29] MEDS: ASPIRIN 81 MG ENTERIC TAB PO SCH (09:57)
[2017-05-29] MEDS: predniSONE 20 MG TAB PO SCH (09:57)
[2017-05-29] MEDS: LORazepam 1 MG TAB PO SCH (09:57)
[2017-05-29 09:58] VITALS: BP 160/101
[2017-05-29] MEDS: ESCITALOPRAM OXALATE 10 MG TAB (LEXAPRO) PO SCH (09:58)
--- NOTE | 2017-05-29 17:03 | DSES ---
DATE OF ADMISSION: 05/23/2017 DATE OF DISCHARGE: 05/29/2017 PRIMARY CARE PROVIDER: Sarah. OUTPATIENT SPONGE BUFFER: Dr. Mena. CONSULTANTS: Dr. Mena. PROCEDURES: None. COMPLICATIONS: None. ADMISSION/DISCHARGE DIAGNOSES: 1. Hypertensive encephalopathy presented with confusion 2. Chronic obstructive pulmonary disease (COPD) exacerbation. 3. End-stage renal disease on hemodialysis. 4. Hypothyroidism. 5. Depression. 6. Anemia of chronic disease. 7. History of chronic back pain. HOSPITALIZATION COURSE: The patient is a 66-year-old female who presented to [facility] on 05/23/2017, for difficulty breathing with altered mental status change. During admission, there was some concern for possible infection. The patient was started on empiric antibiotics. Router Machine Operator Dr. Mena was consulted for end-stage renal disease hemodialysis. Later, a repeat CT of the chest was obtained, which ruled out respiratory infection, and the patient was started on chronic obstructive pulmonary disease exacerbation medications. The patient was also noted to have persistent hypertensive urgency. The patient's blood pressure medication is adjusted, and the patient is resuming regular dialysis. With better control of her COPD and blood pressure control, the patient's mentation started to show gradual improvement. The patient's caregiver has also been contacted regarding the patient's home care. On 05/29/2017, the patient's mentation returned to her baseline. The patient's respiratory status also returned to her baseline, and the patient was determined medically stable for discharge with tapering steroid regimen, and the patient is recommended to followup with the primary care provider in 7-10 days. The patient shall followup with outpatient dialysis center on 05/30/2017, for routine dialysis. OBJECTIVE: VITAL SIGNS: Temperature is 99.5, pulse is 60, respirations 18, blood pressure 160/90, pulse oximetry 90% on room air. LABORATORY DATA: WBC 5.8, hemoglobin 9.6, hematocrit 29.4, platelet count is 155. Sodium 138, potassium 4.2, chloride 102, carbon dioxide 28, BUN 40, creatinine 3.95, GFR 12, fasting glucose 92, calcium 8.4. Total bilirubin 0.8, AST 24, ALT 28, alkaline phosphatase 113. Total protein is 5.5, albumin 3. Urinalysis is negative. MICROBIOLOGY: Urine culture showed contamination. Respiratory panel is negative. IMAGING: CT of the head without contrast showed age-related atrophy and microvascular ischemic change. No acute intracranial hemorrhage, infarction or mass. CT of the chest without contrast showed COPD and emphysematous change with superimposed mild mucous plugging and trace atelectasis to the left lower lobe. DISCHARGE MEDICATIONS: - azithromycin 500 mg by mouth daily for three more days - hydralazine 25 mg by mouth every eight hours - prednisone on tapering dose - Ventolin two puff inhalation every four hours as needed - aspirin 81 mg by mouth daily - atenolol 50 mg by mouth twice a day - Symbicort two puff inhalation twice a day - Lexapro 30 mg by mouth at bedtime - Ellipta 62.5 mcg inhalation daily - Atrovent two puff inhalation four times a day as needed - Synthroid 137 mcg by mouth daily - lorazepam 1 mg by mouth three times a day - losartan 100 mg by mouth daily - Percocet one tablet by mouth every six hours as needed - MiraLAX 17 grams by mouth daily - Arielle-Roby one tablet by mouth daily DISCHARGE INSTRUCTIONS: Discontinue lines. Discharge home. Activity as tolerated. Diet as tolerated. The patient should followup with her primary care provider Sarah in 7-10 days. The patient shall follow outpatient hemodialysis on 05/30/2017. CONDITION ON DISCHARGE: Stable. DISCHARGE TIME: Greater than 30 minutes. MTDD
--- NOTE | 2017-05-29 21:40 | IPN ---
DATE: 05/29/2017 SUBJECTIVE: The patient was seen and examined at the bedside today in the morning. She was actually sitting in the sofa. She feels much better. Patient was dialyzed yesterday, she tolerated the hemodialysis procedure well. Patient reports that she is getting ready to go home today. She was still hypertensive overnight despite hemodialysis and ultrafiltration. Patient has been started on amlodipine today morning. REVIEW OF SYSTEMS: The patient denies any fever, chills, rigors, headache, nausea, vomiting, chest pain, or shortness of breath at this time. Patient reports that she feels weak and tired. Rest of review of systems is negative. OBJECTIVE: VITAL SIGNS: Temperature is 99.5 degrees Fahrenheit, blood pressure was 198/100, pulse was 60, respiratory rate of 18, saturating 88% on room air. INTAKE AND OUTPUT: Urine output is not recorded. Ultrafiltration with hemodialysis was 2 liters yesterday. Weight in the bed scale is 35.5 kg. PHYSICAL EXAMINATION: GENERAL: The patient is awake, alert, and oriented times three, sitting on the sofa in no apparent distress. HEAD and NECK EXAM: Extraocular muscles intact. Pupils equally round and reactive to light. She is weak and cachectic. Neck is supple. There is no jugular venous distention (JVD). CARDIOVASCULAR: S1, S2. Regular rate. No murmur, rub, or gallop. RESPIRATORY: Chest is clear to auscultation bilaterally. Bilateral equal air entry. ABDOMEN: Soft. Large polycystic kidneys. Mild tenderness to palpation in epigastrium. MUSCULOSKELETAL: Extremities have 2+ pulses. No edema. No cyanosis. CENTRAL NERVOUS SYSTEM (HUMAN RESOURCES TRAINING MANAGER): No focal neurological deficit. Power is 5/5 in all extremities. LABORATORY REVIEW: CBC showed a WBC 5.8, hemoglobin 9.6, platelets 155. BMP showed sodium 138, potassium 4.2, chloride 102, bicarbonate 28, BUN 40, creatinine 3.9, calcium 8.4, albumin 3. CURRENT INPATIENT MEDICATIONS: The patient's medications were all reviewed by me. She was started on Norvasc 5 mg by mouth daily. There is no other change in the medication today as compared with yesterday. ASSESSMENT: 66-year-old female with past medical history of end-stage renal disease on hemodialysis, chronic obstructive pulmonary disease (COPD), admitted at this time because of shortness of breath, altered mental status. Nephrology service following the patient for management of end-stage renal disease and hypertension. PLAN: 1. End-stage renal disease. The patient's regular dialysis days are Tuesday, Tuesday, Tuesday. Patient got an extra session of hemodialysis and ultrafiltration yesterday, 2 liters of fluid was removed. Next hemodialysis session will be tomorrow as outpatient. 2. Hypertension. Blood pressure was uncontrolled despite hemodialysis and ultrafiltration yesterday. She has been started on amlodipine 5 mg daily. Continue current dose of atenolol 50 mg by mouth twice a day, hydralazine 25 mg every eight hours, and losartan 100 mg daily. DISCHARGE PLANNING: It is okay to discharge the patient from a nephrology standpoint. Plan of care was discussed with the hospitalist, Dr. Tiffanie Monroe.
== END 2017-05-29 13:12 | disposition home or self-care (01) | DRG 77 ==
LOC: M ED 11:58 → M ED INP 17:40 → M MSPAV 18:31
PROVIDERS: ADMIT Hospitalist; ATTEND Internal Medicine
DX: I67.4 Hypertensive encephalopathy (principal); N18.6 End stage renal disease; J44.1 Chronic obstructive pulmonary disease with (acute) exacerbation; Q61.3 Polycystic kidney, unspecified; E87.1 Hypo-osmolality and hyponatremia; E03.9 Hypothyroidism, unspecified; D63.1 Anemia in chronic kidney disease; F32.9 Major depressive disorder, single episode, unspecified; Z79.899 Other long term (current) drug therapy; Z79.82 Long term (current) use of aspirin; Z79.52 Long term (current) use of systemic steroids; Z88.5 Allergy status to narcotic agent; Z88.8 Allergy status to other drugs, medicaments and biological substances; F17.200 Nicotine dependence, unspecified, uncomplicated; M80.88XD Other osteoporosis with current pathological fracture, vertebra(e), subsequent encounter for fracture with routine healing

== ENCOUNTER 2017-07-21 05:34 | Inpatient (IN) | payer OTHER, MEDICAID, MEDICARE ==
[~2017-07-21] VITALS: Ht 154.9 cm; Wt 38.5 kg
[~2017-07-21 05:34] MED LIST changes: +AZIT500T2 PO; +DICL1GEL3 TOP; +HYDR25TA PO; +MIRA33504 PO
[2017-07-21 06:26] VITALS: O2SAT 100
[2017-07-21] MEDS ORDERED: NITROGLYCERIN 2% OINT 1 GM *U/D* PKT TOP ONE (06:30)
[2017-07-21] MEDS: IPRATROPIUM 0.5MG/ALBUTEROL 2.5MG INH SOL UD 3ML (DUONEB)(J7620) NEB PRN (06:34)
[2017-07-21 06:36] LABS: ABG BASE EXCESS -1.4 (-2.0-2.0); ABG HCO3 25.6 MEQ/L (22.0-26.0); ABG PARTIAL PRESSURE CO2 53.2 mmHg (35.0-45.0); ABG PARTIAL PRESSURE O2 112.4 mmHg (75.0-100.0); ABG STANDARD HCO3 23.3 MEQ/L (22.0-26.0); ABG TOTAL CO2 27.3 MEQ/L (23.0-31.0); ABG pH (ARTERIAL) 7.301 UNITS (7.350-7.450)
[2017-07-21] MEDS ORDERED: methylPREDNISolone INJ 125 MG/2 ML VIAL (J2930) IV ONE (07:00)
[2017-07-21 07:17] LABS: ADD MORPHOLOGY? YES; BASO # 0.1 K/mm3 (0.0-0.2); BASO % 0.5 % (0.0-1.0); EOS # 0.2 K/mm3 (0.0-0.50); EOS % 1.6 % (0.0-3.0); LARGE UNSTAINED CELL # 0.2 K/mm3 (0.0-0.4); LARGE UNSTAINED CELL % 1.1 % (0.0-4.0); LYMPH # 1.2 K/mm3 (1.5-4.5); LYMPH % 8.6 % (24.0-44.0); MEAN CORPUSCULAR HEMOGLOBIN 33.7 pg (27.0-33.0); MEAN CORPUSCULAR HGB CONC 31.3 g/dl (32.0-36.5); MEAN CORPUSCULAR VOLUME 107.5 fl (80.0-96.0); MONO # 0.5 K/mm3 (0.0-0.8); MONO % 3.5 % (0.0-5.0); NEUTROPHILS # 11.7 K/mm3 (1.8-7.7); NEUTROPHILS % 84.7 % (36.0-66.0); PLATELET COUNT, AUTOMATED 168 k/mm3 (150-450); RED CELL DISTRIBUTION WIDTH 17.1 % (11.5-14.5); WHITE BLOOD COUNT 13.8 K/mm3 (4.0-10.0)
[2017-07-21 07:50] LABS: ABG BASE EXCESS -2.4 (-2.0-2.0); ABG HCO3 24.2 MEQ/L (22.0-26.0); ABG PARTIAL PRESSURE O2 122.3 mmHg (75.0-100.0); ABG STANDARD HCO3 22.5 MEQ/L (22.0-26.0); ABG TOTAL CO2 25.7 MEQ/L (23.0-31.0); ABG pH (ARTERIAL) 7.311 UNITS (7.350-7.450)
--- NOTE | 2017-07-21 07:54 | REP ---
Clinical: Dyspnea. Cough. Comparison: 05/23/2017 . Findings: The mediastinum and cardiac silhouette are stable and within normal limits for portable technique. The lung louis are clear without acute consolidation, effusion, or pneumothorax. Skeletal structures are intact. Impression: No acute cardiopulmonary process appreciated. Signed by Colin Mathew MD 07/21/2017 07:45 A
[2017-07-21 08:24] LABS: ANISOCYTOSIS 2+; HYPOCHROMASIA 1+; POIKILOCYTOSIS 1+
[2017-07-21 09:00] LABS: ALBUMIN 3.3 GM/DL (3.2-5.2); ALBUMIN/GLOBULIN RATIO 1.43 (1.00-1.93); BILIRUBIN,DIRECT 0.2 MG/DL (0.0-0.2); BILIRUBIN,TOTAL 0.5 MG/DL (0.2-1.0); CALCIUM LEVEL 7.9 MG/DL (8.8-10.2); CREATININE FOR GFR 4.46 MG/DL (0.55-1.02); GLOMERULAR FILTRATION RATE 10.5 (>45); POTASSIUM SERUM 4.8 MEQ/L (3.5-5.1); TOTAL PROTEIN 5.6 GM/DL (6.4-8.2)
[2017-07-21] MEDS ORDERED: ONDANSETRON 4MG/2ML VIAL (J2405) IV ONE (09:00)
[2017-07-21] MEDS: MINOXIDIL 2.5 MG TAB PO SCH (09:00)
[2017-07-21] MEDS ORDERED: ATENOLOL 50 MG TAB PO SCH (09:00)
[2017-07-21] MEDS ORDERED: LOSARTAN 50 MG TAB PO SCH (09:00)
--- NOTE | 2017-07-21 09:07 | REP ---
CT abdomen and pelvis without IV or oral contrast: History: Abdominal distension. Question ascites. Findings: There is minimal abdominal ascites again noted around the liver in the right upper quadrant and minimal ascites is seen in the pelvic reflections. Innumerable hepatic cysts are seen. The kidneys are massively enlarged and replaced by numerous cysts in this patient with known polycystic kidney disease. No mass is seen. Bowel gas pattern shows no evidence of obstruction. No evidence of free air is seen. Impression: Marked enlargement of the kidneys due to polycystic kidney disease, 25 cm length bilaterally. Minimal ascites. Advanced polycystic liver disease. No significant change from April 25, 2017. Signed by Manjit Cruz MD 07/21/2017 02:34 P
--- NOTE | 2017-07-21 09:07 | REP ---
NONCONTRAST CHEST CT: HISTORY: Dyspnea. COPD. Comparison study May 24, 2017. CT FINDINGS: The lungs remain somewhat hyperinflated with upper lobe emphysematous changes. There is some right apical pleuroparenchymal fibrosis, unchanged. Very small quantity of right pleural fluid is seen unchanged. No definite infiltrate. The inspissated endobronchial secretion pattern seen on May 24, 2017 in the right lower lobe is improved. There is some fluid in the trachea today. No pulmonary mass lesion is seen. Vascular calcifications again noted. There are old healed rib fractures anteriorly on the left. No bony destructive lesion is seen. The patient's body habitus is extremely thin. Again noted is evidence of polycystic kidney disease and polycystic liver disease. A mid thoracic spine vertebral wedge-shaped compression deformity is again seen unchanged from April and June 09, [address] study. There is progressive loss of vertebral body height however when compared with the April 25, 2017 study and a mild gibbous deformity is seen. IMPRESSION: Evidence of COPD. Tiny sliver of right pleural fluid. Some mucoid material in the dependent portion of the trachea. No focal infiltrate. Healing osteoporotic wedge compression fracture deformity in the mid thoracic spine again noted. Signed by Manjit Cruz MD 07/21/2017 02:34 P
[2017-07-21] MEDS: IPRATROPIUM 0.5MG/ALBUTEROL 2.5MG INH SOL UD 3ML (DUONEB)(J7620) NEB SCH ×3 (10:12→10:25)
[2017-07-21 10:14] LABS: ABG BASE EXCESS -2.1 (-2.0-2.0); ABG HCO3 24.4 MEQ/L (22.0-26.0); ABG PARTIAL PRESSURE CO2 48.9 mmHg (35.0-45.0); ABG PARTIAL PRESSURE O2 93.8 mmHg (75.0-100.0); ABG STANDARD HCO3 22.7 MEQ/L (22.0-26.0); ABG TOTAL CO2 25.9 MEQ/L (23.0-31.0); ABG pH (ARTERIAL) 7.316 UNITS (7.350-7.450)
[2017-07-21] MEDS ORDERED: LOSARTAN 50 MG TAB PO ONE (10:15)
[2017-07-21] MEDS ORDERED: ACETAMINOPHEN TAB 650MG DOSE (2X325MG) PO ONE ×2 (10:15→17:50)
[2017-07-21] MEDS ORDERED: ATENOLOL 50 MG TAB PO ONE (10:15)
--- NOTE | 2017-07-21 11:06 | REP ---
CT Head without contrast HISTORY: Headache COMPARISON: 07/21/2017 Areas of decreased attenuation are present in the periventricular and subcortical white matter. This represents small-vessel ischemic disease. There is no intraparenchymal hemorrhage, acute infarct, mass or midline shift. The ventricular system and cortical sulci as well as subarachnoid space in the posterior fossa are dilated consistent with mild volume loss. There is no extra cerebral collection. There is no fracture. The visualized sinuses are clear. IMPRESSION: 1. Small vessel ischemic disease. 2. Mild volume loss. Signed by Omar Steele MD 07/21/2017 10:58 A
[2017-07-21] MEDS ORDERED: ACETAMINOPHEN TAB 650MG DOSE (2X325MG) PO PRN ×2 (12:00→18:45)
[2017-07-21] MEDS ORDERED: PERCOCET 5MG/325MG TAB PO PRN (12:00)
[2017-07-21] MEDS ORDERED: LEXA1TAB2 PO (12:07)
[2017-07-21] MEDS ORDERED: PRED10TA2 PO (12:10)
[2017-07-21] MEDS ORDERED: MINO2.5T PO (12:10)
[2017-07-21] MEDS ORDERED: AMLO5TAB2 PO (12:10)
[2017-07-21] MEDS ORDERED: IPRATROPIUM 0.5MG/ALBUTEROL 2.5MG INH SOL UD 3ML (DUONEB)(J7620) NEB PRN (12:15)
[2017-07-21] MEDS: AZITHROMYCIN INJ 500 MG, VIAL MATE ADAPTER 1 EACH in D5W 250 ML IV SCH (13:00)
[2017-07-21] MEDS: HEPARIN SOD (PORCINE) 5000 UNITS/ML VIAL SC SCH ×3 (14:00→21:14)
[2017-07-21] MEDS: ASPIRIN 81 MG ENTERIC TAB PO SCH (14:13)
[2017-07-21] MEDS: amLODIPine 5 MG TAB PO SCH (14:13)
[2017-07-21] MEDS: predniSONE 10 MG TAB PO SCH (14:14)
--- NOTE | 2017-07-21 15:04 | HPE ---
DATE OF ADMISSION: 07/21/2017 PRIMARY CARE PROVIDER: Lupe Alcazar NP HISTORY OF PRESENT ILLNESS: This patient is a 66-year-old female with a history of polycystic kidney disease, end stage renal disease on dialysis, hypothyroidism, depression, chronic obstructive pulmonary disease (COPD), who presented to [facility] on 07/21/2017 with persistent headache and increased shortness of breath. The patient was in hemodialysis yesterday; however, in the middle of hemodialysis, the patient had experienced dialysis fistula infiltration. The dialysis had to be stopped in the middle. Afterwards, when the patient got home, the patient started having persistent headache, approximately 8:00 p.m., and the patient was also noted to have a blood pressure greater than 200. This morning, the patient was also started to have a significant shortness of breath with increased cough and wheeze. Therefore, the patient came to [facility] for further evaluation. The patient did not have any fever or chills. Did not have any chest pain. Yesterday evening, the patient took all of her scheduled medications; however, this morning, due to significant physical symptoms, the patient did not take her medications. When the patient arrived in the emergency room, the patient was found to have a blood pressure of 214/119. The patient also started to have respiratory distress with significant wheezes. Multiple doses of breathing treatments were given and the patient still required oxygen support. The hospitalist team was called for admission. PAST MEDICAL HISTORY: 1. End stage renal disease, secondary to polycystic kidney disease. 2. Polycystic kidney disease. 3. Chronic obstructive pulmonary disease (COPD). 4. Active tobacco abuse. 5. Chronic back pain. 6. Hypothyroidism. 7. Depression. 8. Advanced polycystic liver disease. PAST SURGICAL HISTORY: 1. Right femur repair. 2. Left dialysis IV fistula. 3. Colonoscopy [place] [address] Ontiveros, found to have diverticulosis and hemorrhoids. SOCIAL HISTORY: The patient continues to smoke. Denies alcohol use. Denies recreational drug use. ADVERSE EFFECTS: LISINOPRIL, CODEINE. HOME MEDICATIONS: - Activella 1-0.5 mg by mouth daily - Ventolin two puff inhalation every 4 hours as needed - albuterol 2.5 mg inhalation every 4 hours as needed - amlodipine 5 mg by mouth daily - aspirin 81 mg by mouth daily - atenolol 50 mg by mouth twice a day - Zocor 160/4.5 two puff inhalation twice a day - Lexapro 30 mg by mouth at night - Incruse Ellipta one dose inhalation daily - Atrovent two puff inhalation four times a day as needed - Synthroid 137 mcg by mouth daily - lorazepam 1 mg by mouth three times a day - losartan 100 mg by mouth daily - minoxidil 2.5 mg by mouth daily - prednisone 10 mg by mouth daily - Renovite one tablet by mouth daily REVIEW OF SYSTEMS: GENERAL: Denies any fevers or chills. HEENT: Denies any vision changes or auditory changes. The patient does complain of significant headaches since yesterday. The headache is in the whole skull area. CARDIOVASCULAR: Denies any chest pain or palpitations. RESPIRATORY: The patient is complaining of increased shortness of breath with increased cough and increased wheeze. The patient does have a history of chronic obstructive pulmonary disease (COPD). GASTROINTESTINAL: No nausea, vomiting, abdominal pain. No diarrhea. MUSCULOSKELETAL: Denies any muscle pain or joint pain. NEUROLOGIC: Denies any numbness or tingling. OBJECTIVE: VITAL SIGNS: Temperature 97.5, pulse is 53, respirations 18, blood pressure 122/70, pulse oximetry is 96% on room air. GENERAL: Moderate distress secondary to persistent headache and shortness of breath. The patient has difficulty maintaining concentration to answer questions. The patient demonstrates full orientation. HEENT: Normocephalic, atraumatic. CARDIOVASCULAR: Very distant heart sounds. Positive S1, S2. Regular rate. LUNGS: Positive wheezes throughout the whole lung field, but I could not appreciate any significant crackles. GASTROINTESTINAL: Abdomen is soft, nontender, nondistended. Bowel sounds present. EXTREMITIES: No edema. No sign of cyanosis. NEUROLOGIC: Sensation to fine touch grossly intact. Muscle strength 5/5. When the patient first arrived in the emergency room, temperature is 97.1, pulse is 71, respirations 20, blood pressure is 214/119, pulse oximetry is 94% on room air. At the time of the admission, the patient has a pulse of 75, blood pressure 172/97, pulse oxygen is 100% with 2 liters nasal cannula. LABORATORY DATA: WBC 13.8, hemoglobin 12.9, hematocrit 41.1, platelet count is 168. Sodium is 143, potassium 4.8, chloride is 110, carbon dioxide 23, BUN 37, creatinine 4.46, GFR 10.5, fasting glucose 76, calcium 7.9, total bilirubin is 0.5, direct bilirubin is 0.2, AST 21, ALT 19, alkaline phosphatase is 64, ammonia level is 17, total CK is 40, troponin I is 0.04, BNP is 2600, total protein is 5.6, albumin 3.3. Arterial blood gas showed a pH of 7.316, PCO2 of 48.9, PO2 is 93.8, HDL3 is 24.4. Microbiology: Blood culture is pending times two sets. IMAGING STUDIES: Chest x-ray showed no acute cardiopulmonary process appreciated. CT of the chest without contrast showed evidence of chronic obstructive pulmonary disease (COPD), small right pleural fluid, some mucoid material in the dependent portion of the trachea, no focal infiltrate. Healing osteoporotic wedge compression fracture, deformity in the mid thoracic spine. CT of the abdomen and pelvis without contrast showed marked enlargement of the kidney due to polycystic kidney disease, 25 cm in length bilaterally. Minimal ascites. Polycystic liver disease. CT of the head without contrast showed small vessel ischemic disease, small volume loss. ASSESSMENT AND PLAN: 1. Hypertensive emergency. When the patient came to the emergency room, the patient had a systolic blood pressure greater than 200 and the patient's diastolic pressure was greater than 100. The patient was admitted to the progressive care unit (PCU) on the inpatient status. The patient did not take her routine blood pressure medications. Once it was given in the emergency room, the patient's systolic blood pressure dropped down to 170s and I discussed the case with the partition assembler. Tentative plan will be for hemodialysis today in the inpatient setting. We will continue to monitor blood pressures. The patient has experienced some decreased alertness, along with significant headache. The patient does have a history of admission for hypertensive encephalopathy. We will continue to monitor. 2. Chronic kidney disease. At hemodialysis yesterday, the patient had a left AV fistula infiltration that caused the dialysis session to be stopped in the middle. Laminating Machine Offbearer has been consulted. The patient was scheduled for hemodialysis today. 3. Polycystic kidney disease. 4. Polycystic liver disease. 5. Hypothyroidism. On Synthroid. 6. Depression. On Lexapro. 7. History of secondary hyperparathyroidism secondary to end stage renal disease. 8. Chronic obstructive pulmonary disease (COPD) exacerbation. The patient was started on IV Solu-Medrol nebulizer treatment every 4 hours as needed. The patient was also started on azithromycin for inflammatory benefit. 9. Active tobacco abuse. The patient has significant COPD, the patient has also had multiple hospitalizations, but the patient continues to smoke. At the moment, we will give the patient nicotine patch. 10. Deep vein thrombosis (DVT) prophylaxis. The patient will be on heparin.
[2017-07-21] MEDS: LORazepam 1 MG TAB PO SCH ×3 (15:47→21:12)
[2017-07-21] MEDS: SYMBICORT 160/4.5MCG INHALER 6GM INH SCH ×2 (15:48→20:45)
[2017-07-21] MEDS: NICOTINE 14 MG/24 HR TRANSDERMAL TD SCH (15:49)
[2017-07-21] MEDS ORDERED: ACETAMINOPHEN 325 MG TAB As Ordered ONE (17:47)
[2017-07-21 19:39] VITALS: BP 179/97
[2017-07-21] MEDS ORDERED: ESCITALOPRAM OXALATE 10 MG TAB (LEXAPRO) PO SCH (21:00)
[2017-07-21] MEDS: methylPREDNISolone INJ 125 MG/2 ML VIAL (J2930) IV SCH (21:11)
[2017-07-21] MEDS: ESCITALOPRAM OXALATE 10 MG TAB (LEXAPRO) PO SCH (21:11)
[2017-07-21] MEDS: ATENOLOL 50 MG TAB PO SCH (21:13)
[2017-07-21 22:30] VITALS: BP 168/84
[2017-07-22] VITALS (8 sets, daily range): BP systolic 132–184; BP diastolic 73–98
[2017-07-22] MEDS ORDERED: MINOXIDIL 2.5 MG TAB PO ONE (01:00)
[2017-07-22] MEDS ORDERED: LEVOTHYROXINE 137MCG TABLET (0.137MG) PO SCH (06:00)
[2017-07-22] MEDS: HEPARIN SOD (PORCINE) 5000 UNITS/ML VIAL SC SCH ×3 (06:00→22:21)
--- NOTE | 2017-07-22 06:05 | ECGEPIP ---
Stationary ECG Study [facility] - ED Test Date: 2017-07-21 Pat Name: CHIQUITA FELIPE Department: Room: [place] [address] Gender: F Quantitative Software Engineer: mansi : [id number] Requested By: TEDDY Bahena Order Number: [id number] Reading MD: Julio Grace Measurements Intervals Dawson Rate: 68 P: 63 NJ: 139 QRS: -63 QRSD: 84 T: 0 QT: 440 QTc: 470 Interpretive Statements SINUS RHYTHM LEFT ANTERIOR FASCICULAR BLOCK PRWP SIMILAR TO 05/23/17 Electronically Signed On 07-22-2017 6:05:33 EDT by Julio Grace
[2017-07-22] MEDS: methylPREDNISolone INJ 125 MG/2 ML VIAL (J2930) IV SCH (06:28)
[2017-07-22 07:04] LABS: MEAN CORPUSCULAR HEMOGLOBIN 33.6 pg (27.0-33.0); MEAN CORPUSCULAR HGB CONC 32.1 g/dl (32.0-36.5); MEAN CORPUSCULAR VOLUME 104.8 fl (80.0-96.0); RED CELL DISTRIBUTION WIDTH 16.6 % (11.5-14.5); WHITE BLOOD COUNT 8.3 K/mm3 (4.0-10.0)
[2017-07-22] MEDS: SYMBICORT 160/4.5MCG INHALER 6GM INH SCH ×2 (07:06→20:52)
[2017-07-22 07:20] LABS: CALCIUM LEVEL 8.2 MG/DL (8.8-10.2); CREATININE FOR GFR 3.36 MG/DL (0.55-1.02); GLOMERULAR FILTRATION RATE 14.5 (>45); POTASSIUM SERUM 4.6 MEQ/L (3.5-5.1)
[2017-07-22] MEDS: ASPIRIN 81 MG ENTERIC TAB PO SCH (08:13)
[2017-07-22] MEDS: predniSONE 10 MG TAB PO SCH (08:13)
[2017-07-22] MEDS: amLODIPine 5 MG TAB PO SCH (08:14)
[2017-07-22] MEDS: ATENOLOL 50 MG TAB PO SCH ×2 (08:14→22:18)
[2017-07-22] MEDS: LORazepam 1 MG TAB PO SCH ×3 (08:15→22:18)
[2017-07-22] MEDS: NICOTINE 14 MG/24 HR TRANSDERMAL TD SCH (08:15)
[2017-07-22] MEDS ORDERED: LOSARTAN 50 MG TAB PO SCH (09:00)
[2017-07-22] MEDS: MINOXIDIL 2.5 MG TAB PO SCH (09:57)
[2017-07-22] MEDS: AZITHROMYCIN INJ 500 MG, VIAL MATE ADAPTER 1 EACH in D5W 250 ML IV SCH (12:20)
--- NOTE | 2017-07-22 17:21 | IPN ---
DATE: 07/22/2017 SUBJECTIVE: The patient is seen and examined in the room today. The patient stated her headache is almost completely resolved. The patient is more alert and awake. The patient also stated her breathing shows significant improvement. No evidence reported after hemodialysis yesterday. OBJECTIVE: VITAL SIGNS: Temperature is 98.7, pulse 66, respirations 18, blood pressure 150/82, pulse oximetry 99% with two liters nasal cannula. GENERAL: No sign of acute distress. Alert and oriented times three. HEENT: Normocephalic, atraumatic. Extraocular motor grossly intact. CARDIOVASCULAR: Positive S1, S2. Regular rate. Very distant heart sounds. LUNGS: Positive wheezes throughout, but intensity has improved compared to yesterday. No significant crackles. GASTROINTESTINAL: Abdomen is soft, nontender, nondistended. Bowel sounds present. No rebound, no guarding. EXTREMITIES: No edema, no sign of cyanosis. Arteriovenous (AV) fistula located in the left upper extremity inside elbow. There is significant ecchymosis noted on the fistula site. LABORATORY DATA: WBC 8.3, hemoglobin is 12.6, hematocrit 39.4, platelet count 190. Sodium is 140, potassium 4.6, chloride 102, carbon dioxide 28, BUN 29, creatinine 3.36, GFR is 14.5, fasting glucose 85, calcium 8.2. ASSESSMENT AND PLAN: 1. Hypertensive encephalopathy. The patient was restarted on her home medication and the patient had urgent hemodialysis yesterday. Blood pressure is in better control. The patient is continued monitored on the progressive care unit (PCU). Headache is completely resolved. Her mentation also shows significant improvement. 2. Hypertensive urgency. Blood pressure is in better control. Continue with home medications. Will continue to follow. 3. Polycystic kidney disease and end-stage renal disease requiring hemodialysis. Her regular hemodialysis days are Tuesday, Tuesday, Tuesday. The patient did have urgent dialysis session on 07/21/2017, and patient will be dialyzed today. And the patient will go back to her regular hemodialysis schedule. We appreciate nephrology's assistance. 4. End-stage renal disease on dialysis. 5. Polycystic liver disease. 6. Hypothyroidism, on Synthroid. 7. Depression, on Lexapro. 8. History of secondary hyperparathyroidism secondary to end-stage renal disease. 9. Chronic obstructive pulmonary disease (COPD) exacerbation. The patient was on Solu-Medrol previously. The patient also started on azithromycin for inflammatory benefit. Patient shows significant improvement of the COPD, still having intermittent wheezes, but her respiratory status continues to improve. Will start to taper the steroids. 10. Active tobacco abuse. The patient has significant COPD and the patient has multiple hospitalizations for COPD exacerbation. However, the patient is on a nicotine patch. 11. Deep vein thrombosis (DVT) prophylaxis. On heparin.
[2017-07-22] MEDS ORDERED: predniSONE 20 MG TAB PO SCH (21:00)
[2017-07-22] MEDS: ESCITALOPRAM OXALATE 10 MG TAB (LEXAPRO) PO SCH (22:19)
--- NOTE | 2017-07-22 23:12 | IPN ---
DATE: 07/22/2017 SUBJECTIVE: The patient was seen and examined at the bedside today morning. She reports that her shortness of breath is significantly better after a session of hemodialysis was done yesterday. Today is the patient's regular day of dialysis. REVIEW OF SYSTEMS: The patient denies any fever, chills, rigors. Her headache is significantly better. She denies any chest pain. She reports her shortness of breath is significantly better as compared with yesterday. She denies any pain in abdomen, constipation or diarrhea. The rest of the review of systems is negative. OBJECTIVE: VITAL SIGNS: Temperature is 98.9 degrees Fahrenheit. Blood pressure is 144/86, pulse is 72, respiratory rate of 18, saturating 98% on nasal cannula at 2 liters. INTAKE/OUTPUT: Urine output recorded as 225 mL since overnight. Ultrafiltration with hemodialysis was 1.4 liters. Weight on the bed scale is not available at this time. PHYSICAL EXAMINATION: GENERAL: The patient is awake, alert, oriented times three, laying in bed in no apparent distress. HEAD AND NECK EXAM: Extraocular muscles intact. Pupils equally round and reactive to light. Neck is supple. There is no jugular venous distention (JVD). CARDIOVASCULAR: S1, S2, regular rate. No murmur, rub or gallop. RESPIRATORY: Decreased breath sounds at the bases. Mild expiratory rhonchi at the bases, which is significantly better as compared with yesterday. ABDOMEN: Abdomen is soft. Positive bowel sounds. Nontender. No ascites. No organomegaly. MUSCULOSKELETAL: No clubbing or cyanosis. No edema. CENTRAL NERVOUS SYSTEM: No focal neurological deficit. Power is 5/5 in all extremities. PSYCHIATRIC: Normal mood and affect. LAB REVIEW: CBC showed a WBC of 8.3, hemoglobin 12.6, platelets are 190. BMP showed sodium 140, potassium 4.6, chloride 102, bicarbonate 28, BUN 29, creatinine is 3.3. Calcium is 8.2. CURRENT INPATIENT MEDICATIONS: The patient's medications were all reviewed by me. Solu-Medrol has been stopped at this time and the patient is currently on prednisone 40 mg by mouth twice a day. ASSESSMENT: A 66-year-old female with a past medical history of end-stage renal disease, on hemodialysis, polycystic kidney disease, hypertension, chronic obstructive pulmonary disease, active smoker, admitted at this time because of shortness of breath and hypertensive urgency secondary to fluid overload. PLAN: 1. Hypertensive emergency. The patient was emergently hemodialyzed yesterday, 1.4 liters of fluid was removed. Home medications were started. Blood pressure is significantly better today. 2. End-stage renal disease, on hemodialysis. The patient's regular dialysis days are Tuesday, Tuesday, Tuesday. She was emergently dialyzed yesterday; however, she will be again dialyzed today according to her regular schedule. 3. Chronic obstructive pulmonary disease. The patient was started on IV azithromycin for COPD exacerbation. She is current getting nebulization. She was initially started on Solu-Medrol. Steroids have been changed to prednisone 40 mg by mouth twice a day. Shortness of breath and wheezing is significantly better. DISCHARGE PLANNING: If the patient is stable by tomorrow morning, she should be able to be discharged home.
--- NOTE | 2017-07-23 22:07 | ED PDOC ---
Provider Note At approximately 3:45 AM I received a call from nursing personnel the patient was getting dressed, packing up her belongings, and getting ready to leave. When I arrived on the unit and into the patient's room she was in the restroom with the door closed. Closer to 4 AM I was urgently summoned away from the patient I was assisting to intervene as Ms. Blackmon was standing at the exit door with several nursing personnel around her. I ascertained that the patient was alert and oriented to person, place, time, location, and current president. I attempted to convince the patient to stay in the hospital until the morning. She was adamant about leaving. Her daughter was contacted. The patient insisted on leaving. I discussed with her the reasons she should stay and the consequences of what would occur if she left. She decided to leave. AMA paperwork was filled out and the patient left. Most recent blood pressure was stable. Patient was afebrile. I received a call from nursing personnel indicating that the daughter called wanting to speak with a physician. I called the patient's daughter, Theresa, to discuss the circumstances surrounding her mother's departure from the hospital. I informed the daughter that if she was concerned that she should contact EMS and have her mother return to the hospital. LYNN SALAZAR Jul 23, 2017 22:07
--- NOTE | 2017-07-26 22:40 | DSES ---
DATE OF ADMISSION: 07/21/2017 DATE OF SIGNING OUT AGAINST MEDICAL ADVICE: 07/23/2017 Approximately 4:00 a.m. PRIMARY CARE PROVIDER: Lupe Alcazar, Nurse Practitioner CONSULTANTS: Supervisor Cabinetmaker. PROCEDURES: None. DISCHARGE DIAGNOSES: 1. Hypertensive encephalopathy. 2. Hypertensive emergency. 3. Severe bilateral polycystic kidney disease. 4. End-stage renal disease requiring hemodialysis. 5. Polycystic liver disease. 6. Hypothyroidism. 7. Depression. 8. Secondary hyperparathyroidism secondary to end-stage renal disease. 9. Chronic obstructive pulmonary disease (COPD) exacerbation. 10. Active tobacco abuse. HOSPITALIZATION COURSE: The patient is a 66-year-old female, presented to [facility] on 07/21/2017 with decreased mental status and hypertensive emergency. The patient presented to the hospital because she had left dialysis AV fistula infiltrate, and she did not complete the whole course of dialysis. After the patient was admitted, mirror framer was consulted urgently, and the patient had urgent dialysis on the day of admission. With dialysis, the patient's blood pressure showed improvement and patient's confusion also showed continued improvement. On 2016, the patient had repeat hemodialysis, and the patient tolerated the procedure well. The patient's symptoms continued to improve. However, on 07/23/2017, in the early hours, approximately 4:00 a.m., the patient decided to sign herself out against medical advice (AMA). The risks and benefits were explained to the patient. VITAL SIGNS: On 07/22/2017 at approximately 2359 hours showed temperature of 99.8, pulse of 61, respirations 18, blood pressure 168/98, pulse oximetry 97% with 2 liters nasal cannula. LABORATORY DATA: WBC 8.3, hemoglobin 12.6, hematocrit 39.4, platelet count is 190. Sodium 140, potassium 4.6, chloride 102, carbon dioxide 28, BUN 29, creatinine 3.36, GFR is 14.5, fasting glucose 85, calcium is 8.2. On the day the patient signed out AMA, I had a chance to discuss the case with the patient's mirror framer. The patient should continue the hemodialysis. DIEGOD
--- NOTE | 2017-08-01 14:01 | CR ---
REQUESTING PHYSICIAN: Dr. Grace in the emergency room. CONSULTING PHYSICIAN: Dr. Chris Garces REASON FOR CONSULTATION: Management of end-stage renal disease and hemodialysis in this patient who missed hemodialysis yesterday. CHIEF COMPLAINT: Patient to the emergency room today with progressive shortness of breath. HISTORY OF PRESENT ILLNESS: Karina Blackmon is a 66-year-old female with past medical history of end-stage renal disease, on hemodialysis secondary to polycystic kidney disease. Her regular dialysis days are Tuesday, Tuesday, Tuesday. She went for hemodialysis yesterday at the hemodialysis center; however , her arteriovenous (AV) fistula infiltrated after about 30 minutes of hemodialysis, so her dialysis was stopped, and she was asked to go back to the hemodialysis center for repeat hemodialysis; however, patient got short of breath. She presented to the emergency room with wheezing, dyspnea, orthopnea, and headache. She was found to have accelerated hypertension with a blood pressure of 214/119. She got nebulizations and steroids in the emergency room, and her antihypertensive medications were restarted. Emergency room physician called me for help in the management of end-stage renal disease and hemodialysis. I saw the patient in the emergency room, and the decision was made to admit the patient for accelerated hypertension chronic obstructive pulmonary disease (COPD) exacerbation, and shortness of breath along with fluid overload in the setting of missed hemodialysis. MEDICAL HISTORY: 1. End-stage renal disease on hemodialysis every Tuesday, Tuesday, Tuesday. 2. History of polycystic kidney disease. 3. COPD. 4. Active smoker. 5. Chronic back pain because of stress fractures. 6. Hypothyroidism. 7. Depression. 8. Polycystic liver disease. SURGICAL HISTORY: 1. History of right femur surgery. 2. Status post left arm AV fistula placement. ALLERGIES: Patient is allergic to CODEINE and LISINOPRIL. FAMILY HISTORY: No significant family history of cancers, but there is positive family history of polycystic kidneys. SOCIAL HISTORY: Patient is an active smoker. She denies any illicit drug abuse or alcohol abuse. REVIEW OF SYSTEMS: CONSTITUTIONAL: Patient denies any fevers or chills, but she reports headache. EYES: She denies any blurry vision or double vision. ENT: She denies any dysphagia, odynophagia, ear discharge. CARDIOVASCULAR: Patient denies any edema, but she reports shortness of breath. RESPIRATORY: Patient reports history of COPD, and she is reporting wheezing and cough at this time. GASTROINTESTINAL: Patient denies any nausea, vomiting, or pain in abdomen. GENITOURINARY: She denies any dysuria or hematuria. MUSCULOSKELETAL: She denies any joint pains or muscle aches and pains. CENTRAL NERVOUS SYSTEM: Patient denies any weakness, tingling, or seizure disorder. PSYCHIATRIC: She denies any history of anxiety or depression. HEMATOLOGY/ONCOLOGY: She denies any history of easy bruising or bleeding. All other review of systems is negative. PHYSICAL EXAMINATION: GENERAL: Patient is awake, alert, oriented times three, lying in bed with ice pack on her head, complaining of headache. VITAL SIGNS: Temperature is 96.2 degrees Fahrenheit, blood pressure is 192/107, pulse is 74, respiratory rate of 18, saturating 99% on nasal cannula. HEAD AND NECK: Extraocular muscles intact. Pupils equally round and reactive to light. Mucous membranes are moist. Neck is supple. There is elevated jugular venous distention (JVD). CARDIOVASCULAR: S1, S2, regular rate. No murmur, rub, or gallop. RESPIRATORY: Decreased breath sounds at the bases. Mild expiratory rhonchi and wheezing all over the lungs. ABDOMEN: Soft, obese, mildly distended, significantly enlarged. Polycystic kidneys are palpable bilaterally. There is no ascites. MUSCULOSKELETAL: No clubbing or cyanosis. Pulses are 2+. CENTRAL NERVOUS SYSTEM: No focal neurologic deficit. Power is 5/5 in all extremities. PSYCHIATRIC: Patient is in mild painful distress. Otherwise she is cooperative. SKIN: No rashes or ulcers. LABORATORY REVIEW: CBC showed a WBC of 13.8, hemoglobin 12.9, platelets of 168. ABG showed a pH of 7.3, pCO2 of 48, pO2 of 93.8, bicarbonate is 25.9, oxygen saturation is 92%. BMP showed sodium 143, potassium 4.8, chloride 110, bicarbonate 23, BUN 37, creatinine is 4.4, calcium is 7.9. BNP is 2600. Albumin 3.3. Blood cultures are negative so far. IMAGING DATA: A CT scan of the head was done, which showed small-vessel ischemic changes, mild volume loss. CT scan of the abdomen and pelvis was done today, which showed marked enlargement of the kidneys due to polycystic kidneys. They were 25 cm in length bilaterally. Minimal ascites. There was advanced polycystic liver disease as well. CT scan of the chest was also done, which showed evidence of COPD. No focal infiltrate. CURRENT INPATIENT MEDICATIONS: Patient's medications were all reviewed by me. She is currently on: - IV azithromycin - Tylenol as needed - DuoNeb every 20 minutes and then every 4 hours as needed for shortness of breath - amlodipine 5 mg daily - aspirin 81 mg daily - atenolol 50 mg twice a day - Lexapro 30 mg at bedtime - levothyroxine 137 mcg by mouth daily - losartan 100 mg by mouth daily - Solu-Medrol 125 mg IV one dose and then 60 mg IV every 12 hours - minoxidil 2.5 mg by mouth daily - nicotine patch - Zofran as needed - Percocet as needed - prednisone 10 mg by mouth daily IMPRESSION: A 66-year-old female with past medical history of end-stage renal disease, on hemodialysis every Tuesday, Tuesday, Tuesday, being admitted at this time because of hypertensive emergency and shortness of breath secondary to chronic obstructive pulmonary disease (COPD) exacerbation and missed hemodialysis. PLAN: 1. Shortness of breath. It is secondary to a combination of COPD exacerbation and fluid overload. Patient will be dialyzed today in the afternoon, and I shall try to remove about 2 kg of fluid as tolerated by her blood pressure. 2. End-stage renal disease, on hemodialysis. Patient's regular dialysis days are Tuesday, Tuesday, Tuesday. She could not get her dialysis done yesterday because of AV fistula infiltration. We shall try to do hemodialysis today in the afternoon. She will be evaluated tomorrow again for any need for hemodialysis according to her regular schedule. 3. COPD exacerbation. Patient has already been started on IV antibiotic, IV Solu-Medrol, and DuoNeb. Patient is an active smoker. She will be given nicotine patch in the hospital. 4. Polycystic kidney and polycystic liver disease. Pain optimization with opioids. 5. Hypertensive emergency. Patient does not remember which medications she took today. Her home medications are being restarted now. She will be dialyzed as well, and ultrafiltration will be done. That will help improve the blood pressure as well. Restart the home medications. 6. Hypothyroidism. Continue current dose of levothyroxine 137 mcg by mouth daily. Thank you for involving us in the care of this patient. Patient's emergent hemodialysis was arranged. She will be dialyzed today in the afternoon as soon as there is a spot available in the inpatient dialysis unit. BRANDT
== END 2017-07-23 04:05 | disposition left against medical advice (07) | DRG 304 ==
LOC: M ED 05:34 → EDBD 05:34 → M ED INP 11:58 → M PCU 19:44
PROVIDERS: ADMIT Internal Medicine; ATTEND Internal Medicine
PROC: 5A1D60Z (ICD-10-PCS; principal; 2017-07-21)
DX: I16.1 Hypertensive emergency (principal); N18.6 End stage renal disease; N25.81 Secondary hyperparathyroidism of renal origin; T82.41XA Breakdown (mechanical) of vascular dialysis catheter, initial encounter; J44.1 Chronic obstructive pulmonary disease with (acute) exacerbation; Q61.3 Polycystic kidney, unspecified; Q44.6 Cystic disease of liver; I67.4 Hypertensive encephalopathy; E03.9 Hypothyroidism, unspecified; F32.9 Major depressive disorder, single episode, unspecified; F17.200 Nicotine dependence, unspecified, uncomplicated; Z79.899 Other long term (current) drug therapy; Z79.82 Long term (current) use of aspirin; Y84.1 Kidney dialysis as the cause of abnormal reaction of the patient, or of later complication, without mention of misadventure at the time of the procedure

== ENCOUNTER 2017-07-29 12:34 | Emergency (ER) | payer OTHER, MEDICAID ==
[~2017-07-29] VITALS: Ht 157.5 cm; Wt 45.0 kg
[~2017-07-29 12:34] MED LIST changes: +LEXA1TAB2 PO
[2017-07-29] MEDS ORDERED: PERCOCET 5MG/325MG TAB PO ONE (13:45)
--- NOTE | 2017-07-29 14:05 | REP ---
Clinical: Trauma . Comparison: 07/21/2017 . Technique: PA and lateral. Findings: The mediastinum and cardiac silhouette are normal. The lung louis are clear and without acute consolidation, effusion, or pneumothorax. The skeletal structures are intact and normal. Impression: 1. No acute cardiopulmonary process. Signed by Colin Mathew MD 07/29/2017 01:56 P
--- NOTE | 2017-07-29 14:06 | REP ---
Clinical: Trauma. Technique: AP and lateral views. Findings: Comminuted fracture through the humeral head/neck. Impression: Comminuted fracture of the humeral head/neck. Signed by Colin Mathew MD 07/29/2017 01:58 P
[2017-07-29] MEDS ORDERED: PERC5TAB12 PO (15:03)
[2017-07-29 15:49] VITALS: BP 142/90
== END 2017-07-29 15:51 | disposition home or self-care (01) ==
LOC: M ED 12:34
DX: S42.291A Other displaced fracture of upper end of right humerus, initial encounter for closed fracture (principal); W01.198A Fall on same level from slipping, tripping and stumbling with subsequent striking against other object, initial encounter; Y92.019 Unspecified place in single-family (private) house as the place of occurrence of the external cause; Y93.01 Activity, walking, marching and hiking; Y99.8 Other external cause status; I10 Essential (primary) hypertension; J44.9 Chronic obstructive pulmonary disease, unspecified; E78.9 Disorder of lipoprotein metabolism, unspecified; G89.29 Other chronic pain; M54.9 Dorsalgia, unspecified; F17.210 Nicotine dependence, cigarettes, uncomplicated; Z79.899 Other long term (current) drug therapy; Z79.82 Long term (current) use of aspirin; Z79.52 Long term (current) use of systemic steroids

== ENCOUNTER 2017-08-05 12:32 | Inpatient (IN) | payer OTHER, MEDICAID, MEDICARE ==
[~2017-08-05] VITALS: Ht 157.5 cm; Wt 44.7 kg
--- NOTE | 2017-08-05 13:52 | REP ---
Clinical: Altered mental status. Comparison: 07/21/2017. Findings: Age-related atrophy and microvascular ischemic changes are appreciated. The ventricles and sulci are symmetric. Montoya-white differentiation is maintained. There is no evidence for acute intracranial hemorrhage, mass/mass effect, pathology or infarction. No extra-axial fluid collection. Calvarium is intact. Paranasal sinuses and mastoid air cells are clear. Impression: Age related atrophy and microvascular ischemic changes. No acute intracranial hemorrhage, infarction, or mass/mass effect. Signed by Colin Mathew MD 08/05/2017 01:43 P
--- NOTE | 2017-08-05 14:13 | REP ---
Clinical: Left foot pain. Technique: AP, lateral, bilateral oblique views left foot . Findings: The osseous structures and joint spaces are intact and without evidence for acute fracture or dislocation. Age-related changes are appreciated along with vascular calcifications suggesting atherosclerotic disease. No subcutaneous emphysema. Impression: Age-related changes along with atherosclerotic disease. No acute fracture or dislocation. Signed by Colin Mathew MD 08/05/2017 02:04 P
--- NOTE | 2017-08-05 14:14 | REP ---
CHEST X-RAY: SINGLE VIEW. History: Altered mental status. Comparison chest x-ray July 29, 2017. Findings: EKG monitoring electrodes overlie the chest. The lungs are symmetrically aerated and clear. Pleural angles are sharp. Heart size is normal and unchanged. The aorta is somewhat tortuous. The known right proximal humeral fracture is seen. Impression: No active disease. Known right proximal humeral fracture seen. Signed by Manjit Cruz MD 08/05/2017 03:03 P
[2017-08-05] MEDS ORDERED: OXYC1TAB23 PO (14:44)
[2017-08-05] MEDS ORDERED: MEGE20TA3 PO (14:44)
[2017-08-05 14:55] LABS: BASO # 0.1 K/mm3 (0.0-0.2); BASO % 0.5 % (0.0-1.0); EOS # 0.1 K/mm3 (0.0-0.50); EOS % 0.6 % (0.0-3.0); LARGE UNSTAINED CELL # 0.1 K/mm3 (0.0-0.4); LARGE UNSTAINED CELL % 1.1 % (0.0-4.0); LYMPH # 0.6 K/mm3 (1.5-4.5); MEAN CORPUSCULAR HEMOGLOBIN 32.4 pg (27.0-33.0); MEAN CORPUSCULAR HGB CONC 32.3 g/dl (32.0-36.5); MEAN CORPUSCULAR VOLUME 100.4 fl (80.0-96.0); MONO # 0.4 K/mm3 (0.0-0.8); MONO % 3.4 % (0.0-5.0); NEUTROPHILS # 10.6 K/mm3 (1.8-7.7); NEUTROPHILS % 90.3 % (36.0-66.0); PLATELET COUNT, AUTOMATED 227 k/mm3 (150-450); RED CELL DISTRIBUTION WIDTH 15.8 % (11.5-14.5); WHITE BLOOD COUNT 11.8 K/mm3 (4.0-10.0)
[2017-08-05] MEDS ORDERED: IPRATROPIUM 0.5MG/ALBUTEROL 2.5MG INH SOL UD 3ML (DUONEB)(J7620) NEB ONE (15:00)
[2017-08-05 16:40] LABS: ALBUMIN 2.8 GM/DL (3.2-5.2); ALBUMIN/GLOBULIN RATIO 1.04 (1.00-1.93); BILIRUBIN,DIRECT 0.2 MG/DL (0.0-0.2); BILIRUBIN,TOTAL 0.5 MG/DL (0.2-1.0); CALCIUM LEVEL 7.7 MG/DL (8.8-10.2); CREATININE FOR GFR 6.69 MG/DL (0.55-1.02); GLOMERULAR FILTRATION RATE 6.5 (>45); POTASSIUM SERUM 5.1 MEQ/L (3.5-5.1); TOTAL PROTEIN 5.5 GM/DL (6.4-8.2)
[2017-08-05 17:05] LABS: MAGNESIUM LEVEL 1.9 MG/DL (1.8-2.4)
[2017-08-05] MEDS ORDERED: ALBUTEROL SULFATE 2.5 MG/0.5 ML INH NEB SOLN INH PRN (17:45)
[2017-08-05] MEDS ORDERED: PERCOCET 5MG/325MG TAB PO PRN (17:45)
[2017-08-05 20:30] VITALS: BP 120/66
[2017-08-05] MEDS ORDERED: ESCITALOPRAM OXALATE 10 MG TAB (LEXAPRO) PO SCH (21:00)
[2017-08-05] MEDS: SYMBICORT 160/4.5MCG INHALER 6GM INH SCH (21:10)
[2017-08-05] MEDS: ESCITALOPRAM OXALATE 10 MG TAB (LEXAPRO) PO SCH (21:34)
[2017-08-05] MEDS: ATENOLOL 50 MG TAB PO SCH (21:34)
[2017-08-05] MEDS: LORazepam 1 MG TAB PO SCH (21:34)
--- NOTE | 2017-08-05 21:53 | HPE ---
DATE OF ADMISSION: 08/05/2017 ANIMAL EVISCERATOR: Dr. Mena/Mili ATTENDING PHYSICIAN: Dr. Amena Vasques CHIEF COMPLAINT: End-stage renal disease in need of dialysis. HISTORY: Karina Blackmon has end-stage renal disease. Has Tuesday, Tuesday, Tuesday hemodialysis. Was recently hospitalized for exacerbation of chronic obstructive pulmonary disease (COPD) and hypertensive encephalopathy from hypertensive emergency, left against medical advice on July 23. She apparently did not receive dialysis this week and has been brought to the emergency room, where she will be kept overnight and have dialysis tomorrow. She will be admitted to the hospitalist service. Per nursing staff, according to family, they are having trouble taking care of her at home. It has become more difficult caring for her, and her cooperation has been decreased. PAST MEDICAL HISTORY: 1. End-stage renal disease from polycystic kidney disease, on Tuesday, Tuesday, Tuesday dialysis. 2. History of hypertension. 3. COPD. 4. Chronic back pain. 5. Hypothyroidism. 6. Depression. 7. Polycystic liver disease. 8. Depression. SURGICAL HISTORY: 1. Right femur surgery. 2. Left arteriovenous (AV) fistula. SOCIAL HISTORY: She smokes. MEDICATIONS: - Activella 1-1.5 one daily - albuterol every 4 hours as needed - amlodipine 5 mg daily - aspirin 81 mg daily - atenolol 50 mg twice a day - Symbicort 160/4.5 two puffs twice a day - Lexapro. She takes 30 mg daily, a 10-20 tablet to equal 30 mg daily. - Incruse Ellipta 62.5 mcg one puff daily - Atrovent HFA two puffs four times a day as needed - levothyroxine 137 mcg daily - Ativan 1 mg at bedtime - losartan 100 mg daily - Megace 20 mg before meals and at bedtime - minoxidil 2.5 mg daily - oxycodone/acetaminophen 5/325 every 6 hours as needed - Arielle-Roby one tablet daily ALLERGIES: CODEINE and LISINOPRIL. PHYSICAL EXAMINATION: 114/70, pulse 20, respiratory rate 58, 92% oxygen saturation. GENERAL APPEARANCE: Elderly, resting comfortably. She has her right arm in a sling. She has a right proximal humerus fracture. Pupils equal, round, reactive to light. Tympanic membranes and oropharynx benign. NECK: Supple. No jugular venous distention (JVD). LUNGS: Decreased breath sounds but clear. HEART: Regular rate and rhythm. A 1/6 systolic ejection murmur. ABDOMEN: Distended, soft. EXTREMITIES: No peripheral edema. No clubbing. LABORATORY DATA: White count 11.8, hemoglobin 10.5, platelets 227. Sodium 135, potassium 5.1, creatinine 6.6. Acetaminophen level was only 6.2. Chest x-ray showed no active disease. Right proximal humeral fracture, which was known previously. X-ray of her foot did not show any fracture. CT of the head showed no change. IMPRESSION: 1. End-stage renal disease. Apparently the plan is for her to be admitted overnight so she can have dialysis. Been discussed with Dr. Garces. She will be admitted to Dr. Vasques's hospitalist service. 2. Social issues. Patient and family services (PFS) needs to be involved. 3. Hypertension. Continue her antihypertensives. Hopefully with improved compliance, her blood pressure will remain under good control. 4. Chronic anxiety problems. Continue her current medications, including her Lexapro and her Ativan. 5. Chronic obstructive pulmonary disease (COPD). Continue her bronchodilators and inhaled corticosteroid.
--- NOTE | 2017-08-05 22:29 | CR ---
DATE OF CONSULTATION: 08/05/2017 REQUESTING PHYSICIAN: Dr. Amean Vasques. REASON FOR CONSULTATION: Management of end-stage renal disease and hemodialysis. CHIEF COMPLAINT: The patient presented to the hospital because of weakness, recent right arm fracture, and she missed two sessions of hemodialysis. HISTORY OF PRESENT ILLNESS: Karina Blackmon is a 66-year-old female with past medical history of end-stage renal disease because of polycystic kidney disease. She is hemodialysis dependent every Tuesday, Tuesday, Tuesday. She is well known to nephrology service from previous admissions and from outpatient hemodialysis center. The patient recently had fracture of her right humerus after a fall, and after that, the patient was feeling very week and she also reported that she was having loose stools for the last 3-4 days. She was unable to come for hemodialysis and she was unable to care for herself at home. Her family members sent the patient to emergency room. Moreover, the patient missed her hemodialysis sessions for the last two consecutive sessions. Today is her regular day of dialysis, so nephrology service was called for further held in the management of end-stage renal disease and hemodialysis. When I saw the patient in the emergency room, the patient was hemodialysis stable. She denied any shortness of breath more than her usual baseline secondary to chronic obstructive pulmonary disease (COPD). She reports that her diarrhea is improving now. However, she reported that she was feeling very weak, and her family members reported that the patient is unable to take care of herself at home and they want her placed at a [facility]. PAST MEDICAL HISTORY: The patient has a past medical history of: 1. End-stage renal disease on hemodialysis every Tuesday, Tuesday, Tuesday. 2. History of COPD and chronic active smoker. 3. History of polycystic kidney disease. 4. Chronic back pain because of stress fractures in the past. 5. Hypothyroidism. 6. Depression. 7. Polycystic liver disease. 8. Hypertension. 9. Recent right humeral head and neck fracture. PAST SURGICAL HISTORY: 1. History of right femur surgery in the past. 2. Status post left forearm arteriovenous (AV) fistula placement. ALLERGIES: The patient is allergic to LISINOPRIL and CODEINE. FAMILY HISTORY: Positive family history of polycystic kidneys. No history of cancers in the family. SOCIAL HISTORY: The patient lives at home. She denies any illicit drug abuse or alcohol abuse. The patient is an active smoker. REVIEW OF SYSTEMS: CONSTITUTIONAL: The patient denies any fevers, chills or rigors but she does report weakness. EYES: She denies any blurry vision or double vision. ENT: She denies any dysphagia, odynophagia or ear discharge. CARDIOVASCULAR: She denies any edema, but she does report some shortness of breath. RESPIRATORY: The patient has a history of COPD, but she denies any wheezing or cough at this time. GASTROINTESTINAL (GI): The patient reports loose stools for the last 3-4 days which are improving right now. GENITOURINARY (): She denies any dysuria or hematuria. MUSCULOSKELETAL: She denies any joint aches and pains. CENTRAL NERVOUS SYSTEM (CLERK SECRETARY): The patient denies any tingling or seizure disorder or stroke. PSYCHIATRIC: The patient reports history of depression in the past. HEMATOLOGIC/ONCOLOGIC: The patient denies any easy bruising or bleeding. ENDOCRINE: The patient denies any history of diabetes, but she is known to have hypothyroidism. All other review of systems is negative. PHYSICAL EXAMINATION: GENERAL: The patient is awake, alert, and oriented times three, sitting in the bed, getting ready to eat her dinner. VITAL SIGNS: Temperature is 97.9 degrees Fahrenheit, blood pressure is 105/72, pulse is 62, respiratory rate of 16, saturating 93% on nasal cannula at two liters. HEAD/NECK: Extraocular muscles intact. Pupils equal, round, and reactive to light. Mucous membranes are moist. Neck is supple. There is mildly elevated jugular venous distention (JVD). CARDIOVASCULAR: S1, S2. Regular rate. No murmur, rub, or gallop. RESPIRATORY: Decreased and distant breath sounds at the bases. Otherwise no active rales or rhonchi. ABDOMEN: Soft. There is massive enlargement of her kidneys both sides, which are palpable because of polycystic kidney disease and her liver is also palpable about 4-5 cm below the right costal margin. MUSCULOSKELETAL: Normal range of movement. No cyanosis of the extremities. No clubbing. The patient is awaiting a sling to the right arm because of recent humeral fracture. CLERK SECRETARY: No focal neurological deficit. Power is 5/5 in all extremities. PSYCHIATRIC: Normal mood and affect. SKIN: No rashes or ulcers. ARTERIOVENOUS (AV) ACCESS: The patient has a left forearm AV fistula with positive thrill and bruit. LABORATORY DATA: CBC showed a WBC of 11.8, hemoglobin 10.5, platelets are 227. BMP showed sodium 135, potassium 5.1, chloride 100, bicarbonate 23, BUN 69, creatinine 6.6. Calcium 7.7, phosphorus seven. Troponin 0.02, albumin 2.8. TSH is 3.7. IMAGING: A chest x-ray was done today which showed no active disease, and known right proximal humeral fracture. An x-ray of the left foot was done which showed age-related changes along with atherosclerotic disease. No acute fracture or dislocation. A CT scan of the head was done which showed age-related atrophy. No acute intracranial hemorrhage. CURRENT INPATIENT MEDICATIONS: The patient's medications were all reviewed by me. She is currently on: - albuterol ipratropium nebulizations - Norvasc 5 mg daily - aspirin 81 mg daily - atenolol 50 mg twice a day - Lexapro 30 mg by mouth daily - levothyroxine 137 mcg by mouth daily - Ativan 1 mg at bedtime - losartan 100 mg by mouth daily - minoxidil 2.5 mg daily - Percocet as needed ASSESSMENT: A 66-year-old female with past medical history of end-stage renal disease on hemodialysis secondary to polycystic kidneys, hemodialysis every Tuesday, Tuesday, Tuesday, recent fracture of the right humerus, admitted this time because of missing hemodialysis times two sessions, failure to thrive, and inability to take care of herself at home. PLAN: 1. End-stage renal disease on hemodialysis: The patient's regular dialysis day is today; however, she came late in the emergency room. She is hemodynamically stable. There are no signs of fluid overload. Electrolytes are stable. The patient will be hemodialyzed tomorrow early in the morning. Plan of care was discussed with the admitting team. 2. Hypertension: Blood pressure is acceptable at this time. Continue amlodipine 5 mg by mouth daily, atenolol 50 mg by mouth twice a day, losartan 100 mg daily, and minoxidil 2.5 mg by mouth daily. 3. Chronic obstructive pulmonary disease (COPD): The patient is a chronic active smoker. Continue DuoNeb nebulizations. 4. Hyperphosphatemia: It is secondary to missed hemodialysis. Phosphorus level is expected to improve with hemodialysis session. However, if the phosphorus stay high above five, then the patient will be started on phosphorus binders. 5. Hyponatremia: Hyponatremia is secondary to renal failure and slight hypervolemia. Hemodialysis and ultrafiltration will help improve sodium level by tomorrow. 6. Hypothyroidism: Continue current dose of levothyroxine 137 mcg by mouth daily. Thank you for involving us in the care of this patient. We shall be happy to follow the patient along with you tomorrow morning. Plan of care was discussed with the admitting team.
[2017-08-06 06:00] VITALS: BP 109/63
[2017-08-06] MEDS: LEVOTHYROXINE 137MCG TABLET (0.137MG) PO SCH (06:25)
[2017-08-06 06:35] VITALS: BP 138/75
[2017-08-06 06:55] VITALS: BP 122/70
[2017-08-06] MEDS: SYMBICORT 160/4.5MCG INHALER 6GM INH SCH ×2 (08:10→21:14)
[2017-08-06] MEDS: LOSARTAN 50 MG TAB PO SCH (08:18)
[2017-08-06] MEDS: MINOXIDIL 2.5 MG TAB PO SCH (08:20)
[2017-08-06] MEDS: ATENOLOL 50 MG TAB PO SCH ×2 (08:21→20:50)
[2017-08-06] MEDS: amLODIPine 5 MG TAB PO SCH (08:21)
[2017-08-06 08:52] LABS: MEAN CORPUSCULAR HEMOGLOBIN 32.3 pg (27.0-33.0); MEAN CORPUSCULAR HGB CONC 32.1 g/dl (32.0-36.5); MEAN CORPUSCULAR VOLUME 100.8 fl (80.0-96.0); RED CELL DISTRIBUTION WIDTH 15.8 % (11.5-14.5); WHITE BLOOD COUNT 11.7 K/mm3 (4.0-10.0)
[2017-08-06] MEDS: ASPIRIN 81 MG ENTERIC TAB PO SCH (09:00)
[2017-08-06] MEDS ORDERED: DARBEPOETIN 100 MCG/0.5 ML *DIALYSIS* SYRINGE (J0882) IV SCH (09:00)
[2017-08-06 09:08] LABS: ALBUMIN 2.6 GM/DL (3.2-5.2); CALCIUM LEVEL 6.9 MG/DL (8.8-10.2); CREATININE FOR GFR 7.31 MG/DL (0.55-1.02); GLOMERULAR FILTRATION RATE 5.9 (>45); PHOSPHORUS LEVEL 7.4 MG/DL (2.5-4.9); POTASSIUM SERUM 4.9 MEQ/L (3.5-5.1)
[2017-08-06 14:00] VITALS: BP 106/59
--- NOTE | 2017-08-06 14:46 | IPNPDOC ---
Date Seen The patient was seen on 08/06/17. Progress Note Hospitalist Progress Note Subjective: Patient denies any complaints other than wanting to go home Objective: Physical Exam: Vitals: Vital Sign - Last 24 Hours 08/05/17 08/05/17 08/05/17 08/05/17 14:47 15:02 15:04 15:17 Pulse 56 56 56 B/P (MAP) 104/63 (77) Pulse Ox 95 95 86 08/05/17 08/05/17 08/05/17 08/05/17 15:19 15:32 15:34 15:47 Pulse 56 56 Resp 20 B/P (MAP) 109/66 (80) Pulse Ox 100 86 O2 Delivery Aerosol Mask FiO2 100 08/05/17 08/05/17 08/05/17 08/05/17 16:02 16:04 16:19 16:34 Pulse 58 54 56 Resp 20 B/P (MAP) 114/70 (85) Pulse Ox 92 86 74 O2 Delivery Room Air 08/05/17 08/05/17 08/05/17 08/05/17 16:44 16:49 17:04 17:19 Pulse 58 54 56 B/P (MAP) 104/62 (76) 122/73 (89) Pulse Ox 92 O2 Delivery Nasal Cannula O2 Flow Rate 2.0 08/05/17 08/05/17 08/05/17 08/05/17 17:34 17:49 18:04 18:19 Pulse 60 64 62 58 B/P (MAP) 120/74 (89) 08/05/17 08/05/17 08/05/17 08/05/17 18:34 18:49 19:04 19:19 Pulse 58 60 58 58 B/P (MAP) 102/55 (71) 102/58 (73) 08/05/17 08/05/17 08/05/17 08/06/17 20:05 20:30 21:34 06:00 Temp 97.9 98.0 98.7 Pulse 62 60 60 55 Resp 16 20 20 B/P (MAP) 105/72 (83) 120/66 (84) 120/66 109/63 (78) Pulse Ox 93 95 94 O2 Delivery Nasal Cannula Nasal Cannula Nasal Cannula O2 Flow Rate 2.0 2.0 2.0 08/06/17 08/06/17 08/06/1716/17 06:35 06:55 08:00 08:18 Pulse 56 55 B/P (MAP) 138/75 (96) 122/70 (87) 122/70 O2 Delivery Nasal Cannula O2 Flow Rate 2.0 08/06/17 08/06/17 08/06/17 08/06/17 08:20 08:21 08:21 14:00 Temp 97.6 Pulse 55 60 Resp 18 B/P (MAP) 103/70 103/70 122/70 106/59 (75) Pulse Ox 100 O2 Delivery Nasal Cannula O2 Flow Rate 2.0 General: Awake, alert, no acute distress, very thin HEENT: Normocephalic, atraumatic, extraocular movements intact CV: Regular rate and rhythm Lungs: Clear to auscultation bilaterally Abd: Soft, Nontender, nondistended Extremities: No edema Neuro: Alert and oriented to person and place only Psych: Calm and cooperative Labs and Imaging: Laboratory Tests 08/05/17 15:40 08/06/17 08:45 Red Blood Count 3.07 L, Mean Corpuscular Volume 100.8 H, Mean Corpuscular Hemoglobin 32.3, Mean Corpuscular Hemoglobin Concent 32.1, Red Cell Distribution Width 15.8 H, Anion Gap 11 Assessment and Plan: 66-year-old female with end-stage renal disease secondary to polycystic kidney disease on hemodialysis, hypertension, COPD, chronic back pain, hypothyroidism, depression, polycystic liver disease who was brought to the emergency department by her family as they have been having more and more difficulty caring for her and she has missed several days of dialysis. 1. End-stage renal disease secondary to polycystic kidney disease on hemodialysis: We appreciate management by nephrology. 2. Anemia: This appears to be chronic with a baseline around the tens. Suspect this is secondary to end-stage renal disease. Aranesp as per nephrology. She currently appears to be near baseline. 3. Hypertension: Currently controlled. Continue home minoxidil, Cozaar, atenolol , Norvasc. 4. COPD: Currently well managed. Continue as needed nebs as well as home Symbicort. 5. Hypothyroidism: Continue home Synthroid. 6. Depression: Continue home Lexapro. 7. Chronic back pain: Continue home Percocet. DVT prophylaxis: SCDs Dispo: family states they're unable to continue to care for her; PFS will be seeking placement VS, I&O, 24H, [facility] Vital Signs/I&O Vital Signs Date Time Temp Pulse Resp B/P (MAP) Pulse Ox O2 Delivery O2 Flow Rate FiO2 08/06/17 14:00 97.6 60 18 106/59 (75) 100 Nasal Cannula 2.0 08/05/17 15:19 100 I&O- Last 24 Hours up to 6 AM 08/06/17 06:00 Intake Total 0 ml Output Total 0 ml Balance 0 ml Laboratory Data 24H LABS Laboratory Tests 2 08/05/17 15:40: Anion Gap 12, Glomerular Filtration Rate 6.5L, Calcium Level 7.7L, Phosphorus Level 7.0H, Magnesium Level 1.9, Aspartate Amino Transf (AST/SGOT) 16, Alanine Aminotransferase (ALT/SGPT) 17, Alkaline Phosphatase 62, Total Bilirubin 0.5, Direct Bilirubin 0.2, Total Creatine Kinase 35, Creatine Kinase MB 2.5, Creatine Kinase MB Relative Index 7.14H, Troponin I 0.02, Total Protein 5.5L, Albumin 2.8L, Albumin/Globulin Ratio 1.04, Thyroid Stimulating Hormone (TSH) 3.700, Acetaminophen Level 6.2L 08/06/17 08:45: Anion Gap 11, Glomerular Filtration Rate 5.9L, Calcium Level 6.9L, Phosphorus Level 7.4H, Albumin 2.6L, Blood Urea Nitrogen 71H, Creatinine 7.31H, Sodium Level 134L, Potassium Level 4.9, Chloride Level 99, Carbon Dioxide Level 24 CBC/BMP Laboratory Tests 08/05/17 15:40 08/06/17 08:45 Red Blood Count 3.07 L, Mean Corpuscular Volume 100.8 H, Mean Corpuscular Hemoglobin 32.3, Mean Corpuscular Hemoglobin Concent 32.1, Red Cell Distribution Width 15.8 H, Anion Gap 11 Microbiology Microbiology 08/05/17 Blood Culture, Received Pending 08/05/17 Blood Culture - Preliminary, Resulted No growth after 24 hours . All specim... LORENZO STERLING Aug 06, 2017 14:46
--- NOTE | 2017-08-06 16:28 | IPN ---
DATE: 08/06/2017 SUBJECTIVE: Patient was seen and examined at the bedside today morning during hemodialysis procedure. Patient was tolerating the hemodialysis procedure well. Patient is afebrile at this time and hemodynamically stable. REVIEW OF SYSTEMS: Patient denies any fevers, chills, rigors, headache, nausea, vomiting, chest pain. She does report baseline shortness of breath, and she does report mild pain in the abdomen because of polycystic kidneys, but she reports that her diarrhea has improved. Rest of review of systems is negative. OBJECTIVE: Vital signs: Temperature is 98.7 degrees Fahrenheit, blood pressure is 103/70, pulse is 55, respiratory rate of 18, saturating 94% on nasal cannula. Intake and output: Urine output is not recorded. Weight in the bed scale is 49.8 kg. PHYSICAL EXAMINATION: GENERAL: Patient is awake, alert, oriented times three, lying in bed, getting hemodialysis done. No apparent distress. HEAD AND NECK: Extraocular muscles intact. Pupils equally round and reactive to light. Mucous membranes are noist. Neck is supple. There is no jugular venous distention (JVD). CARDIOVASCULAR: S1, S2, regular rate. No murmur, rub, or gallop. RESPIRATORY: Decreased breath sounds at the bases. Patient is comfortable with nasal cannula at this time. No active rales or rhonchi. ABDOMEN: Soft. Massively enlarged polycystic kidneys are palpable, both sides. MUSCULOSKELETAL: Normal range of movement. No clubbing or cyanosis. CENTRAL NERVOUS SYSTEM: No focal neurological deficit. Power is 5/5 in all extremities. PSYCHIATRIC: Normal mood and affect. LABORATORY REVIEW: CBC showed a WBC 11.7, hemoglobin 9.9, platelets are 220. BMP showed sodium 134, potassium 4.9, chloride 99, bicarbonate 24, BUN 71, creatinine is 7.3, calcium 6.9, phosphorus is 7.4. Albumin 2.6. Microbiology: Blood cultures are negative so far. CURRENT INPATIENT MEDICATIONS: Patient's medications were all reviewed by me. There is no change in the medications today as compared with yesterday. ASSESSMENT: A 66-year-old female with past medical history of end-stage renal disease, on hemodialysis, secondary to polycystic kidney disease. Patient was admitted at this time after missing two sessions of hemodialysis. PLAN: 1. End-stage renal disease, on hemodialysis. Patient is being dialyzed today. She is tolerating the hemodialysis procedure well. She shall try to do an ultrafiltration of 2 liters as tolerated by her blood pressure. She is being dialyzed against a 2K bath. 2. Hypertension. Blood pressure is acceptable at this time. Continue current dose of amlodipine, atenolol, losartan, and minoxidil. 3. Hyperphosphatemia. Phosphorus level is expected to improve with hemodialysis. She has not been dialyzed for the last 1 week almost. If phosphorus level stays high after dialysis, then she will be started on phosphorus binders. 4. Anemia secondary to end-stage renal disease. Patient will be given a dose of Aranesp with hemodialysis today. 5. Hyponatremia. It is secondary to hypervolemia and missed hemodialysis. Sodium level is accepted to improve with hemodialysis.
--- NOTE | 2017-08-06 17:21 | ECGEPIP ---
Stationary ECG Study [facility] - ED Test Date: 2017-08-05 Pat Name: CHIQUITA FELIPE Department: Room: - Gender: F Rug Clipper: olu : [id number] Requested By: Jennifer Mendoza Order Number: [id number] Reading MD: Jennifer Mendoza Measurements Intervals [place] Rate: 57 P: 67 IN: 140 QRS: -50 QRSD: 80 T: -1 QT: 464 QTc: 453 Interpretive Statements SINUS BRADYCARDIA LEFT ANTERIOR FASCICULAR BLOCK LOW VOLTAGE LIMB PRWP Electronically Signed On 08-06-2017 17:20:33 EDT by Jennifer Mendoza
[2017-08-06] MEDS: ESCITALOPRAM OXALATE 10 MG TAB (LEXAPRO) PO SCH (20:49)
[2017-08-06] MEDS: ACETAMINOPHEN TAB 650MG DOSE (2X325MG) PO PRN (20:49)
[2017-08-06] MEDS: LORazepam 1 MG TAB PO SCH (20:49)
[2017-08-06 22:00] VITALS: BP 116/64
[2017-08-07 06:00] VITALS: BP 109/56
[2017-08-07] MEDS: LEVOTHYROXINE 137MCG TABLET (0.137MG) PO SCH ×2 (06:00→06:26)
[2017-08-07] MEDS: ASPIRIN 81 MG ENTERIC TAB PO SCH (06:26)
[2017-08-07 06:51] LABS: MEAN CORPUSCULAR HEMOGLOBIN 33.3 pg (27.0-33.0); MEAN CORPUSCULAR HGB CONC 33.2 g/dl (32.0-36.5); MEAN CORPUSCULAR VOLUME 100.3 fl (80.0-96.0); RED CELL DISTRIBUTION WIDTH 15.5 % (11.5-14.5); WHITE BLOOD COUNT 7.1 K/mm3 (4.0-10.0)
[2017-08-07 07:01] LABS: ALBUMIN 2.4 GM/DL (3.2-5.2); CALCIUM LEVEL 7.4 MG/DL (8.8-10.2); CREATININE FOR GFR 4.47 MG/DL (0.55-1.02); GLOMERULAR FILTRATION RATE 10.4 (>45); POTASSIUM SERUM 3.7 MEQ/L (3.5-5.1)
[2017-08-07] MEDS: SYMBICORT 160/4.5MCG INHALER 6GM INH SCH ×2 (07:40→19:59)
[2017-08-07] MEDS: ATENOLOL 50 MG TAB PO SCH (09:00)
[2017-08-07] MEDS: LOSARTAN 50 MG TAB PO SCH (09:00)
[2017-08-07] MEDS: MINOXIDIL 2.5 MG TAB PO SCH (09:00)
[2017-08-07] MEDS: amLODIPine 5 MG TAB PO SCH (09:00)
--- NOTE | 2017-08-07 11:14 | IPN ---
DATE: 08/07/2017 SUBJECTIVE: Patient was seen and examined at the bedside today morning. She is laying in the bed. She denies any active complaints. The patient was dialyzed yesterday. She tolerated the hemodialysis procedure well. She is afebrile and hemodynamically stable at this time. REVIEW OF SYSTEMS: Patient denies any fevers, chills, rigors, headache, nausea, vomiting, or chest pain. She does report her baseline shortness of breath. She denies any nausea or vomiting. She does report her baseline abdominal pain because of polycystic kidneys. The rest of review of systems is negative. OBJECTIVE: Vital Signs: Temperature is 98.1 degrees Fahrenheit, blood pressure is 109/56, pulse is 52, respiratory rate of 18, saturating 99% on nasal cannula. Intake and output: Urine output recorded as only 25 mL overnight. Ultrafiltration with hemodialysis was 1.5 liters yesterday. Weight on the bed scale is not available today. PHYSICAL EXAMINATION: GENERAL: Patient is awake, alert, oriented times three, laying in bed, wearing nasal cannula, in no apparent distress. HEAD AND NECK EXAM: Extraocular muscles intact. Pupils equally round and reactive to light. Mucous membranes are moist. Neck is supple. There is slightly elevated jugular venous distention (JVD). CARDIOVASCULAR: S1, S2, regular rate. No murmur, rub, or gallop. RESPIRATORY: ecreased breath sounds at the bases, otherwise no rales or rhonchi. ABDOMEN: Soft. Palpable kidneys on both sides which are polycystic. Liver is also palpable. MUSCULOSKELETAL: Normal range of movement. No clubbing or cyanosis. CENTRAL NERVOUS SYSTEM: No focal neurological deficit. Power is 5/5 in all extremities. PSYCHIATRIC: Normal mood and affect. LABORATORY REVIEW: CBC showed a WBC of 7.1, hemoglobin 9.9 and platelets of 163. BMP showed sodium 139, potassium 3.7, chloride 104, bicarbonate 30, BUN 34, creatinine is 4.4, glucose 72, calcium 7.4, phosphorus is 4, albumin 2.4. CURRENT INPATIENT MEDICATIONS: Patient's medications were all reviewed by me. There is no change in the medications today as compared with yesterday. ASSESSMENT: 66-year-old female with past medical history of end-stage renal disease on hemodialysis secondary to polycystic kidney disease. Patient was admitted at this time after missing hemodialysis sessions and family members were unable to take care of the patient at home. PLAN: 1. End-stage renal disease, on hemodialysis. Patient's regular dialysis days are Tuesday, Tuesday, Tuesday. She was dialyzed yesterday after missing two sessions of dialysis. No urgent need of hemodialysis today. Next hemodialysis session will be tomorrow morning. 2. Hyperphosphatemia. Phosphorus level has improved as expected after hemodialysis sessions. No need of phosphorus binders at this time. The patient has very decreased by mouth intake. 3. Hypertension. Blood pressure is acceptable at this time. Multiple medications were held because of low blood pressure. I am going to adjust her antihypertensive regimen. She is scheduled to receive amlodipine, atenolol, losartan and minoxidil. All of the medications are held this morning. 4. Anemia secondary to end-stage renal disease. Patient was given a dose of Aranesp yesterday. Hemoglobin is optimal at this time. 5. Disposition. Patient wants to go back home; however, she has a right upper arm fracture. She is unable to take care of herself. Her family members are also requesting patient's placement in a long-term. The patient is refusing to go to the long-term or rehabilitation at this time. [facility] (PFS) is working on the case at this time.
--- NOTE | 2017-08-07 12:38 | IPNPDOC ---
Date Seen The patient was seen on 08/07/17. Progress Note Hospitalist Progress Note Subjective: Patient denies any complaints Objective: Physical Exam: Vitals: Vital Sign - Last 24 Hours 08/06/17 08/06/17 08/06/17 08/06/17 14:00 20:50 22:00 22:00 Temp 97.6 99.7 Pulse 60 64 64 Resp 18 20 B/P (MAP) 106/59 (75) 118/64 116/64 (81) Pulse Ox 100 99 O2 Delivery Nasal Cannula Nasal Cannula Nasal Cannula O2 Flow Rate 2.0 2.0 2.0 08/07/17 08/07/17 08/07/17 08/07/17 06:00 06:00 09:00 09:00 Temp 98.1 98.1 Pulse 52 52 52 52 Resp 20 20 B/P (MAP) 109/56 (73) 109/56 (73) 109/56 109/56 Pulse Ox 99 99 O2 Delivery Nasal Cannula Nasal Cannula O2 Flow Rate 2.0 2.0 08/07/17 08/07/17 09:00 09:00 B/P (MAP) 109/56 109/56 General: Awake, alert, no acute distress, very thin HEENT: Normocephalic, atraumatic, extraocular movements intact CV: Regular rate and rhythm Lungs: Clear to auscultation bilaterally Abd: Soft, kidneys palpable bilaterally Extremities: No edema Neuro: Alert and oriented to person, year, and being in a hospital but does not know which one Psych: Calm and cooperative Labs and Imaging: Laboratory Tests 08/07/17 06:12 Red Blood Count 2.97 L, Mean Corpuscular Volume 100.3 H, Mean Corpuscular Hemoglobin 33.3 H, Mean Corpuscular Hemoglobin Concent 33.2, Red Cell Distribution Width 15.5 H, Anion Gap 5 L Assessment and Plan: 66-year-old female with end-stage renal disease secondary to polycystic kidney disease on hemodialysis, hypertension, COPD, chronic back pain, hypothyroidism, depression, polycystic liver disease who was brought to the emergency department by her family as they have been having more and more difficulty caring for her and she has missed several days of dialysis. 1. End-stage renal disease secondary to polycystic kidney disease on hemodialysis: We appreciate management by nephrology. 2. Anemia: This appears to be chronic with a baseline around the tens. Suspect this is secondary to end-stage renal disease. Aranesp as per nephrology. She currently appears to be near baseline. 3. Hypertension: Currently controlled. Dr. Garces is adjusting her home minoxidil, Cozaar, atenolol, Norvasc. 4. COPD: Currently well managed. Continue as needed nebs as well as home Symbicort. 5. Hypothyroidism: Continue home Synthroid. 6. Depression: Continue home Lexapro. 7. Chronic back pain: Continue home Percocet. DVT prophylaxis: SCDs Dispo: family states they're unable to continue to care for her; patient does not want to go to SNF/rehab/[facility] but she has a recent fracture and cannot care for herself; PFS will be seeking placement VS, I&O, 24H, [facility] Vital Signs/I&O Vital Signs Date Time Temp Pulse Resp B/P (MAP) Pulse Ox O2 Delivery O2 Flow Rate FiO2 08/07/17 09:00 109/56 08/07/17 09:00 52 08/07/17 06:00 98.1 20 99 Nasal Cannula 2.0 08/05/17 15:19 100 I&O- Last 24 Hours up to 6 AM 08/07/17 05:59 Intake Total 600 ml Output Total 1600 ml Balance -1000 ml Laboratory Data 24H LABS Laboratory Tests 2 08/07/17 06:12: Blood Urea Nitrogen 34#H, Creatinine 4.47H, Sodium Level 139, Potassium Level 3.7#, Chloride Level 104, Carbon Dioxide Level 30, Anion Gap 5L, Glomerular Filtration Rate 10.4L, Calcium Level 7.4L, Phosphorus Level 4.0#, Albumin 2.4L CBC/BMP Laboratory Tests 08/07/17 06:12 Red Blood Count 2.97 L, Mean Corpuscular Volume 100.3 H, Mean Corpuscular Hemoglobin 33.3 H, Mean Corpuscular Hemoglobin Concent 33.2, Red Cell Distribution Width 15.5 H, Anion Gap 5 L Microbiology Microbiology 08/05/17 Blood Culture - Preliminary, Resulted No growth after 24 hours . All specim... 08/05/17 Blood Culture - Preliminary, Resulted No growth after 24 hours . All specim... LORENZO STERLING Aug 07, 2017 12:38
[2017-08-07 14:00] VITALS: BP 140/76
[2017-08-07] MEDS: ESCITALOPRAM OXALATE 10 MG TAB (LEXAPRO) PO SCH (20:29)
[2017-08-07] MEDS: LORazepam 1 MG TAB PO SCH (20:30)
[2017-08-07] MEDS: ACETAMINOPHEN TAB 650MG DOSE (2X325MG) PO PRN (20:30)
[2017-08-07 22:00] VITALS: BP 131/66
[2017-08-08 06:00] VITALS: BP 164/74
[2017-08-08] MEDS: ASPIRIN 81 MG ENTERIC TAB PO SCH (06:03)
[2017-08-08] MEDS: LEVOTHYROXINE 137MCG TABLET (0.137MG) PO SCH (06:03)
[2017-08-08] MEDS: SYMBICORT 160/4.5MCG INHALER 6GM INH SCH ×2 (07:55→20:02)
[2017-08-08 10:08] LABS: MEAN CORPUSCULAR HEMOGLOBIN 33.1 pg (27.0-33.0); MEAN CORPUSCULAR HGB CONC 32.4 g/dl (32.0-36.5); RED CELL DISTRIBUTION WIDTH 15.7 % (11.5-14.5); WHITE BLOOD COUNT 8.5 K/mm3 (4.0-10.0)
[2017-08-08 10:28] LABS: ALBUMIN 2.4 GM/DL (3.2-5.2); CALCIUM LEVEL 7.3 MG/DL (8.8-10.2); CREATININE FOR GFR 5.4 MG/DL (0.55-1.02); GLOMERULAR FILTRATION RATE 8.4 (>45); PHOSPHORUS LEVEL 3.3 MG/DL (2.5-4.9); POTASSIUM SERUM 3.8 MEQ/L (3.5-5.1)
--- NOTE | 2017-08-08 12:06 | IPN ---
DATE OF SERVICE: 08/08/2017 SUBJECTIVE: Patient was seen and examined at the bedside today morning during hemodialysis procedure. Patient was tolerating the hemodialysis procedure well. REVIEW OF SYSTEMS: Patient denies any fever or chills, rigors, headache, nausea, vomiting, chest pain, shortness of breath. She does report her baseline abdominal pain because of a polycystic kidney. Rest of review of system is negative. OBJECTIVE: Vital signs: Temperature is 98.2 degrees Fahrenheit, blood pressure is 164/74, pulse is 61, respiratory rate of 18, saturating 97% on nasal cannula at 2 liters. Intake and output: Urine output recorded as 200 mL overnight. Weight on the bed scale is not available. PHYSICAL EXAMINATION: General: Patient is awake, alert, oriented times three lying in bed getting hemodialysis. No apparent distress. Head and neck exam: Extraocular muscles intact. Pupils equally round and reactive to light. Mucous membranes are moist. Neck is supple. There is no jugular venous distention (JVD). Cardiovascular: S1, S2, regular rate. No murmur, rub or gallop. Respiratory: Decreased breath sounds at the bases. Otherwise no rales or rhonchi. Abdomen: Soft, palpable kidneys on both sides. Liver is also palpable. Musculoskeletal: Normal range of movement. No clubbing or cyanosis. Central nervous system: No focal neurological deficit. Power is 5/5 in all extremities. Psych: Normal mood and affect. LAB REVIEW: CBC showed WBC 8.5, hemoglobin 9.9, platelets of 157. BMP showed sodium of 140, potassium 3.8, chloride 103, bicarbonate 28, BUN 45, creatinine is 4.5. Calcium 7.3, phosphorus 3.3, albumin is 2.4. CURRENT INPATIENT MEDICATIONS: Patient's medications were all reviewed by me. There is no change in the medications today as compared to yesterday. ASSESSMENT: 66-year-old female with history of end stage renal disease secondary to polycystic kidneys. She is hemodialysis dependent. Patient admitted this time because of recent right humerus fracture, failure to thrive and patient was unable to take care of herself at home. PLAN: 1. End stage renal disease. Patient is being dialyzed according to her regular dialysis schedule. We shall try to remove about 2 kg of fluid as tolerated by her blood pressure. 2. Hypertension. Blood pressure is acceptable at this time. Multiple medications were stopped yesterday because of low blood pressures. She is currently on atenolol 25 mg by mouth daily and Losartan 50 mg by mouth daily. 3. Anemia secondary to end stage renal disease. Hemoglobin is 9.9 which is optimal. Patient is currently on Aranesp 100 mcg IV with hemodialysis. DISPOSITION: Patient wants to go back home. Her family members want to send her to a rehabilitation or fci. [facility] (PFS) is working on patient's placement.
[2017-08-08] MEDS: ATENOLOL 25 MG TAB PO SCH (13:10)
[2017-08-08] MEDS: LOSARTAN 50 MG TAB PO SCH (13:11)
[2017-08-08] MEDS: ACETAMINOPHEN TAB 650MG DOSE (2X325MG) PO PRN (13:26)
[2017-08-08 14:00] VITALS: BP 142/72
--- NOTE | 2017-08-08 15:34 | IPNPDOC ---
Date Seen The patient was seen on 08/08/17. Progress Note Hospitalist Progress Note Subjective: Patient denies any complaints Objective: Physical Exam: Vitals: Vital Sign - Last 24 Hours 08/07/17 08/07/17 08/08/17 08/08/17 22:00 22:00 06:00 09:00 Temp 99.1 98.2 Pulse 63 61 Resp 20 18 B/P (MAP) 131/66 (87) 164/74 (104) Pulse Ox 99 97 O2 Delivery Nasal Cannula Nasal Cannula Nasal Cannula Nasal Cannula O2 Flow Rate 2.0 2.0 2.0 2.0 08/08/17 08/08/17 08/08/17 13:10 13:11 14:00 Temp 99.8 Pulse 60 60 Resp 18 B/P (MAP) 142/72 142/72 142/72 (95) Pulse Ox 99 O2 Delivery Nasal Cannula O2 Flow Rate 2.0 General: Awake, alert, no acute distress, very thin HEENT: Normocephalic, atraumatic, extraocular movements intact CV: Regular rate and rhythm Lungs: Clear to auscultation bilaterally Abd: Soft, kidneys palpable bilaterally Extremities: No edema Neuro: Alert and oriented to person, year, and being in a hospital but does not know which one Psych: Calm and cooperative Labs and Imaging: Laboratory Tests 08/08/17 09:19 Red Blood Count 3.00 L, Mean Corpuscular Volume 102.0 H, Mean Corpuscular Hemoglobin 33.1 H, Mean Corpuscular Hemoglobin Concent 32.4, Red Cell Distribution Width 15.7 H, Anion Gap 9 Assessment and Plan: 66-year-old female with end-stage renal disease secondary to polycystic kidney disease on hemodialysis, hypertension, COPD, chronic back pain, hypothyroidism, depression, polycystic liver disease who was brought to the emergency department by her family as they have been having more and more difficulty caring for her and she has missed several days of dialysis. 1. End-stage renal disease secondary to polycystic kidney disease on hemodialysis: We appreciate management by nephrology. 2. Anemia: This appears to be chronic with a baseline around the tens. Suspect this is secondary to end-stage renal disease. Aranesp as per nephrology. She currently appears to be near baseline. 3. Hypertension: Currently controlled. Dr. Garces is adjusting her home minoxidil, Cozaar, atenolol, Norvasc. 4. COPD: Currently well managed. Continue as needed nebs as well as home Symbicort. 5. Hypothyroidism: Continue home Synthroid. 6. Depression: Continue home Lexapro. 7. Chronic back pain: Continue home Percocet. DVT prophylaxis: SCDs Dispo: family states they're unable to continue to care for her; patient does not want to go to SNF/rehab/[facility] but she has a recent fracture and cannot care for herself; PFS will be seeking placement; transition to SNF status until final disposition is arranged VS, I&O, 24H, [facility] Vital Signs/I&O Vital Signs Date Time Temp Pulse Resp B/P (MAP) Pulse Ox O2 Delivery O2 Flow Rate FiO2 08/08/17 14:00 99.8 60 18 142/72 (95) 99 Nasal Cannula 2.0 08/05/17 15:19 100 I&O- Last 24 Hours up to 6 AM 08/08/17 05:59 Intake Total 720 ml Output Total 26 ml Balance 694 ml Laboratory Data 24H LABS Laboratory Tests 2 08/08/17 09:19: Blood Urea Nitrogen 45H, Creatinine 5.40H, Sodium Level 140, Potassium Level 3.8 , Chloride Level 103, Carbon Dioxide Level 28, Anion Gap 9, Glomerular Filtration Rate 8.4L, Calcium Level 7.3L, Phosphorus Level 3.3, Albumin 2.4L CBC/BMP Laboratory Tests 08/08/17 09:19 Red Blood Count 3.00 L, Mean Corpuscular Volume 102.0 H, Mean Corpuscular Hemoglobin 33.1 H, Mean Corpuscular Hemoglobin Concent 32.4, Red Cell Distribution Width 15.7 H, Anion Gap 9 Microbiology Microbiology 08/05/17 Blood Culture - Preliminary, Resulted No Growth after 72 hours. All specime... 08/05/17 Blood Culture - Preliminary, Resulted No Growth after 72 hours. All specime... LORENZO STERLING Aug 08, 2017 15:34
[2017-08-08 20:03] VITALS: O2SAT 97
[2017-08-08] MEDS: ESCITALOPRAM OXALATE 10 MG TAB (LEXAPRO) PO SCH (20:31)
[2017-08-08] MEDS: LORazepam 1 MG TAB PO SCH (20:31)
[2017-08-09 06:00] VITALS: BP 157/83
[2017-08-09] MEDS: LEVOTHYROXINE 137MCG TABLET (0.137MG) PO SCH (06:15)
[2017-08-09] MEDS: SYMBICORT 160/4.5MCG INHALER 6GM INH SCH ×2 (07:17→21:10)
[2017-08-09] MEDS: LOSARTAN 50 MG TAB PO SCH (09:58)
[2017-08-09] MEDS: ATENOLOL 25 MG TAB PO SCH (09:58)
[2017-08-09] MEDS: ASPIRIN 81 MG ENTERIC TAB PO SCH (09:58)
[2017-08-09] MEDS ORDERED: MOM 30ML SUSPENSION UDC PO ONE (12:30)
[2017-08-09] MEDS: ESCITALOPRAM OXALATE 10 MG TAB (LEXAPRO) PO SCH (21:04)
[2017-08-09] MEDS: LORazepam 1 MG TAB PO SCH (21:04)
[2017-08-10] MEDS: LEVOTHYROXINE 137MCG TABLET (0.137MG) PO SCH (05:55)
[2017-08-10] MEDS: ASPIRIN 81 MG ENTERIC TAB PO SCH (05:55)
[2017-08-10] MEDS: LOSARTAN 50 MG TAB PO SCH (05:56)
[2017-08-10] MEDS: ATENOLOL 25 MG TAB PO SCH (05:56)
[2017-08-10 06:00] VITALS: BP 166/89
[2017-08-10] MEDS: SYMBICORT 160/4.5MCG INHALER 6GM INH SCH ×2 (07:44→20:10)
[2017-08-10 11:34] LABS: BASO % 0.4 % (0.0-1.0); EOS # 0.1 K/mm3 (0.0-0.50); EOS % 0.9 % (0.0-3.0); LARGE UNSTAINED CELL # 0.3 K/mm3 (0.0-0.4); LARGE UNSTAINED CELL % 2.6 % (0.0-4.0); LYMPH # 0.8 K/mm3 (1.5-4.5); LYMPH % 8.1 % (24.0-44.0); MEAN CORPUSCULAR HEMOGLOBIN 33.5 pg (27.0-33.0); MEAN CORPUSCULAR HGB CONC 33.3 g/dl (32.0-36.5); MEAN CORPUSCULAR VOLUME 100.6 fl (80.0-96.0); MONO # 0.4 K/mm3 (0.0-0.8); MONO % 3.7 % (0.0-5.0); NEUTROPHILS # 8.7 K/mm3 (1.8-7.7); NEUTROPHILS % 84.3 % (36.0-66.0); PLATELET COUNT, AUTOMATED 174 k/mm3 (150-450); RED CELL DISTRIBUTION WIDTH 15.2 % (11.5-14.5); WHITE BLOOD COUNT 10.4 K/mm3 (4.0-10.0)
[2017-08-10 11:44] LABS: ALBUMIN 2.6 GM/DL (3.2-5.2); CALCIUM LEVEL 7.7 MG/DL (8.8-10.2); CREATININE FOR GFR 5.13 MG/DL (0.55-1.02); GLOMERULAR FILTRATION RATE 8.9 (>45); PHOSPHORUS LEVEL 2.2 MG/DL (2.5-4.9); POTASSIUM SERUM 4.3 MEQ/L (3.5-5.1)
--- NOTE | 2017-08-10 12:54 | IPN ---
DATE: 08/10/2017 SUBJECTIVE: Patient was seen and examined at the bedside today morning during work rounds and again during hemodialysis procedure. Patient is much more awake and alert today as compared with yesterday. She denies any active complaints. REVIEW OF SYSTEMS: Patient denies any fever, chills, rigors, headache, nausea, vomiting. She does report her baseline shortness of breath. She does report pain in the right shoulder because of recent fracture. The rest of review of system is negative. OBJECTIVE: Vital Signs: Temperature is 99.2 degrees Fahrenheit, blood pressure is 166/89, pulse is 64, respiratory rate of 20, saturating 957% on nasal cannula at 2 liters. Intake and output: There is no urine output recorded today. Weight on the bed scale is not available. PHYSICAL EXAMINATION: General: Patient is awake, alert, oriented times three, lying in bed, in no apparent distress. Head and Neck Exam: Extraocular muscles intact. Pupils equally round and reactive to light. Mucous membranes are moist. Neck is supple. There is no jugular venous distention (JVD). Cardiovascular: S1, S2, regular rate. No murmur, rub or gallop. Respiratory: Decreased breath sounds at the bases. Otherwise no rales or rhonchi. Abdomen: Soft. Palpable large polycystic kidney, both sides. The liver is also palpable. Musculoskeletal: Normal range of movement of extremities except right shoulder. She is wearing a sling on the right shoulder because of recent humeral fracture. Central Nervous System: No focal neurological deficit. Power is 5/5 in all extremities. Psych: Normal mood and affect. LAB REVIEW: CBC showed WBC of 10.4, hemoglobin 11 and platelets of 174. BMP showed sodium of 141, potassium 4.3, chloride 103, bicarbonate 32, BUN 36, creatinine is 5.1. Calcium 7.7, phosphorus 2.2, albumin is 2.6. CURRENT INPATIENT MEDICATIONS: Patient's medications were all reviewed by me. Ativan dose was decreased to 0.5 mg by mouth at bedtime. ASSESSMENT: 66-year-old female with history of end stage renal disease secondary to polycystic kidneys admitted at this time because of inability to take care of herself at home. She missed two sessions of hemodialysis. She recently had a right humeral fracture. PLAN: 1. End stage renal disease on hemodialysis. Patient's regular dialysis day is today. She is being dialyzed according to her regular schedule. We shall try to do an ultrafiltration of about 2 liters as tolerated by her blood pressure. 2. Hypertension. Blood pressure is acceptable at this time. Multiple antihypertensives were stopped during this admission because of low blood pressures. Systolic blood pressure of around 150 would be acceptable for her age and comorbidities. Continue current dose of atenolol 25 mg by mouth daily and Losartan 50 mg by mouth daily. 3. Anemia secondary to end stage renal disease. Hemoglobin is acceptable at this time. Continue current dose of Aranesp 100 mcg IV with hemodialysis. 4. Confusion and altered mental status. The patient is on opioids and benzodiazepines. I decreased the Ativan dose to 0.5 mg by mouth at bedtime. The patient is symptomatically much better. If she again has symptoms of confusion and disorientation, then her oxycodone dose will be decreased as well.
[2017-08-10] MEDS: LORazepam 0.5 MG TAB PO SCH (20:21)
[2017-08-10] MEDS: ESCITALOPRAM OXALATE 10 MG TAB (LEXAPRO) PO SCH (20:21)
[2017-08-11] MEDS: LEVOTHYROXINE 137MCG TABLET (0.137MG) PO SCH (05:35)
[2017-08-11 06:00] VITALS: BP 146/70
[2017-08-11] MEDS: SYMBICORT 160/4.5MCG INHALER 6GM INH SCH ×2 (07:30→20:08)
[2017-08-11 08:50] VITALS: BP 151/80
[2017-08-11] MEDS: ATENOLOL 25 MG TAB PO SCH (09:10)
[2017-08-11] MEDS: ASPIRIN 81 MG ENTERIC TAB PO SCH (09:10)
[2017-08-11] MEDS: LOSARTAN 50 MG TAB PO SCH (09:12)
[2017-08-11] MEDS: ACETAMINOPHEN TAB 650MG DOSE (2X325MG) PO PRN (15:08)
[2017-08-11] MEDS: ESCITALOPRAM OXALATE 10 MG TAB (LEXAPRO) PO SCH (21:20)
[2017-08-11] MEDS: LORazepam 0.5 MG TAB PO SCH (21:21)
[2017-08-12 06:00] VITALS: BP 165/94
[2017-08-12] MEDS: LEVOTHYROXINE 137MCG TABLET (0.137MG) PO SCH (06:02)
[2017-08-12] MEDS: ASPIRIN 81 MG ENTERIC TAB PO SCH (06:02)
[2017-08-12] MEDS: LOSARTAN 50 MG TAB PO SCH (06:04)
[2017-08-12] MEDS: SYMBICORT 160/4.5MCG INHALER 6GM INH SCH ×2 (07:25→19:46)
[2017-08-12] MEDS: ATENOLOL 25 MG TAB PO SCH (08:05)
--- NOTE | 2017-08-12 11:59 | IPN ---
DATE OF SERVICE: 08/12/2017 SUBJECTIVE: Patient was seen and examined at the bedside today afternoon during hemodialysis procedure. She was tolerating the hemodialysis procedure well. She does not have any active complaints. REVIEW OF SYSTEMS: Patient denies any fever, chills, rigors, headache, nausea, vomiting, chest pain, shortness of breath, pain in abdomen, constipation or diarrhea. Rest of review of system is negative. OBJECTIVE: Vital signs: Temperature 99.3 degrees Fahrenheit, blood pressure is 165/94, pulse is 55, respiratory rate of 15, saturating 99% on nasal cannula. Intake and output: Urine output recorded is 125 mL overnight. Weight on the bed scale is not available. PHYSICAL EXAMINATION: General: Patient is awake, alert, oriented times three, lying in bed, getting hemodialysis done, no apparent distress. Head and neck exam: Extraocular muscles intact. Pupils equally round and reactive to light. Mucous membranes are moist. Neck is supple, there is no jugular venous distention (JVD). Cardiovascular: S1, S2. Regular rate. No murmur, rub or gallop. Respiratory: Diffuse breath sounds at the bases. Otherwise no rales or rhonchi. Abdomen is soft, positive bowel sounds. Palpable large polycystic kidneys bilaterally. Liver is also palpable. Musculoskeletal: Normal range of movement of the extremities except right shoulder. She is wearing a sling on the right shoulder because of recent history of humeral fracture. Central nervous system: No focal neurological deficit. Power is 5/5 in all extremities. Psych: Normal mood and affect. LAB REVIEW: CBC showed WBC of 10.5, hemoglobin 11, and this is from two days ago. Latest BMP is not available. CURRENT INPATIENT MEDICATION: Patient's medications were all reviewed by me. There is no change in the medications today as compared with yesterday. ASSESSMENT: 66-year-old female with past medical history of end stage renal disease secondary to polycystic kidney admitted this time because of inability to take care of herself at home, recent fall and fracture of humerus. Patient is pending placement at this time. PLAN: 1. End stage renal disease on hemodialysis. Today is patient's regular day of dialysis. Patient is being dialyzed according to her regular schedule. We shall try to do an ultrafiltration of 2 liter as tolerated by her blood pressure. 2. Hypertension. Patient's blood pressure is slightly higher than target, however, multiple medications were stopped during this admission because of hypotension. She is on atenolol 25 mg daily and losartan 50 mg daily. I am going to increase the losartan dose to 100 mg by mouth daily. 3. Anemia secondary to end stage renal disease. Hemoglobin is acceptable at this time. It was 11 two days ago. Continue current dose of Aranesp. DISCHARGE PLANNING: It is okay to discharge the patient from nephrology standpoint whenever she has rehabilitation or residential placement available.
[2017-08-12] MEDS: ACETAMINOPHEN TAB 650MG DOSE (2X325MG) PO PRN (12:55)
[2017-08-12] MEDS ORDERED: LIDOCAINE 1% SDV 5 ML VIAL SQ ONE (13:15)
[2017-08-12 14:45] LABS: MEAN CORPUSCULAR HEMOGLOBIN 33.7 pg (27.0-33.0); MEAN CORPUSCULAR HGB CONC 33.4 g/dl (32.0-36.5); MEAN CORPUSCULAR VOLUME 100.8 fl (80.0-96.0); RED CELL DISTRIBUTION WIDTH 15.3 % (11.5-14.5); WHITE BLOOD COUNT 9.4 K/mm3 (4.0-10.0)
[2017-08-12 15:25] LABS: ALBUMIN 2.8 GM/DL (3.2-5.2); CALCIUM LEVEL 8.2 MG/DL (8.8-10.2); CREATININE FOR GFR 2.73 MG/DL (0.55-1.02); GLOMERULAR FILTRATION RATE 18.4 (>45); POTASSIUM SERUM 3.7 MEQ/L (3.5-5.1)
[2017-08-12 15:41] LABS: PHOSPHORUS LEVEL 1.5 MG/DL (2.5-4.9)
[2017-08-12] MEDS: metroNIDAZOLE (FLAGYL) 500 MG TAB PO SCH ×2 (17:07→21:14)
[2017-08-12] MEDS: LORazepam 0.5 MG TAB PO SCH (21:14)
[2017-08-12] MEDS: ESCITALOPRAM OXALATE 10 MG TAB (LEXAPRO) PO SCH (21:14)
[2017-08-13] MEDS: metroNIDAZOLE (FLAGYL) 500 MG TAB PO SCH ×3 (05:39→21:00)
[2017-08-13] MEDS: LEVOTHYROXINE 137MCG TABLET (0.137MG) PO SCH (05:39)
[2017-08-13 06:00] VITALS: BP 147/77
[2017-08-13] MEDS: SYMBICORT 160/4.5MCG INHALER 6GM INH SCH ×2 (07:22→20:22)
[2017-08-13] MEDS: ASPIRIN 81 MG ENTERIC TAB PO SCH (09:16)
[2017-08-13] MEDS: ATENOLOL 25 MG TAB PO SCH (09:16)
[2017-08-13] MEDS: LOSARTAN 50 MG TAB PO SCH (09:17)
--- NOTE | 2017-08-13 14:44 | IPN ---
DATE: 08/13/2017 Ms. Blackmon is seen this morning on her bedside. She reports feeling better and wants to go home. She denies any nausea, vomiting, dyspnea or chest pain. Nursing staff reports that she has been very weak and family has decided to let her go for subacute rehab as family feels that she needs a lot of help and they are unable to provide help at home. The patient had her hemodialysis done yesterday. Prior to this admission, she had missed several dialysis treatments and also fell at home and broke her right humerus. On physical exam, temperature 98.8 degrees Fahrenheit, heart rate 62 per minute and respiratory rate 18 per minute. Blood pressure 164/80 mmHg and oxygen saturation 100% on 2 liters oxygen. Neck veins are not abnormally distended. Head is atraumatic and neck is supple. There is no thyroid enlargement. Pupils are equal and reactive to light and sclerae is anicteric. Heart: Sounds are regular and lungs with moderate bilateral air entry. Abdomen is soft with large polycystic kidneys, which are nontender. Extremities: Have no cyanosis or clubbing. She has a sling on her right arm. She did not have any new labs done today. Yesterday's labs showed a hemoglobin of 10.8 and hematocrit 32. BUN was 20 and creatinine 2.72 with albumin 2.8 and phosphorus 1.5. PROBLEM #1: End-stage renal disease. The patient underwent hemodialysis yesterday. She will be scheduled for next hemodialysis on Tuesday. At present, there is no indication for dialysis today. PROBLEM #2: Hypertension. Blood pressure is reasonably well controlled on current antihypertensive medications. She did have problem with medications at home, and her blood pressure was usually quite difficult to control. PROBLEM #3: Anemia. Her anemia is stable, and she will continue with Aranesp 100 mcg once a week. PROBLEM #4: Chronic obstructive pulmonary disease (COPD). The patient is stable at present and will continue with her chronic treatment. PROBLEM #5: Disposition. The patient is not felt to be ready for discharge. She is waiting for a subacute rehabilitation bed. She is currently correction facility (SNF) status. [facility]ITAL[facility]
[2017-08-13] MEDS: LORazepam 0.5 MG TAB PO SCH (21:00)
[2017-08-13] MEDS: ESCITALOPRAM OXALATE 10 MG TAB (LEXAPRO) PO SCH (21:00)
[2017-08-14] MEDS: metroNIDAZOLE (FLAGYL) 500 MG TAB PO SCH ×3 (05:42→21:24)
[2017-08-14] MEDS: LEVOTHYROXINE 137MCG TABLET (0.137MG) PO SCH (05:42)
[2017-08-14 06:00] VITALS: BP 139/80
[2017-08-14] MEDS: SYMBICORT 160/4.5MCG INHALER 6GM INH SCH ×2 (07:33→23:50)
[2017-08-14] MEDS: ASPIRIN 81 MG ENTERIC TAB PO SCH (09:20)
[2017-08-14] MEDS: ATENOLOL 25 MG TAB PO SCH (09:21)
[2017-08-14] MEDS: LOSARTAN 50 MG TAB PO SCH (09:21)
--- NOTE | 2017-08-14 10:17 | IPNPDOC ---
Subjective Date Seen The patient was seen on 08/13/17. Subjective Chief Complaint/HPI Patient seen and examined at the bedside. Apparently, the patient was having some diarrhea a few days ago, and was noted to be C. difficile positive. Since starting Flagyl, the patient states that her diarrhea has completely resolved, she denies any abdominal pain, notes that she is tolerating a by mouth diet without any issues at this time. She denies any other acute complaints at this time. Objective Physical Examination General Exam: Positive: Alert, Cooperative, No Acute Distress ENT Exam: Positive: Atraumatic, Mucous membr. moist/pink Neck Exam: Negative: JVD Chest Exam: Positive: Clear to auscultation, Normal air movement Heart Exam: Positive: Rate Normal, Normal S1, Normal S2 Abdomen Exam: Positive: Soft, Negative: Tenderness Extremity Exam: Negative: Tenderness, Swelling Assessment /Plan Plan/VTE VTE Prophylaxis Ordered?: Yes Plan Diarrhea / C. Diff GI Panel noted to be + on 08/12 Cont Flagyl as ordered Patient states that her diarrhea has resolved, denies any abdominal pain, and is tolerating a PO diet w/o any issues ESRD on HD 2/2 Polycystic Kidney Disease Nephrology on board Hypertension Cont current regimen COPD, stable Cont current regimen Hypothyroidism Cont Synthroid Depression Lexapro Chronic Back Pain Cont Percocet prn DVT Prophylaxis SCDs Dispo as per CM/PFS VS, I&O, 24H, Fishbone Vital Signs/I&O Vital Signs Date Time Temp Pulse Resp B/P (MAP) Pulse Ox O2 Delivery O2 Flow Rate FiO2 08/14/17 09:21 139/80 08/14/17 09:21 60 08/14/17 06:00 98.7 18 90 Room Air 08/13/17 21:00 2.0 I&O- Last 24 Hours up to 6 AM 08/15/17 06:00 Intake Total 0 ml Output Total 0 ml Balance 0 ml Laboratory Data Microbiology Microbiology 08/05/17 Blood Culture - Final, Complete NO GROWTH AFTER 5 DAYS 08/05/17 Blood Culture - Final, Complete NO GROWTH AFTER 5 DAYS 08/12/17 Gastrointestinal Tract Panel (PCR) - Final, Complete Clostridium Difficile A/B KARLIE ENRIQUEZ MD Aug 14, 2017 10:17
[2017-08-14] MEDS: PERCOCET 5MG/325MG TAB PO PRN (17:33)
[2017-08-14] MEDS: ESCITALOPRAM OXALATE 10 MG TAB (LEXAPRO) PO SCH (21:24)
[2017-08-14] MEDS: LORazepam 0.5 MG TAB PO SCH (21:24)
[2017-08-15 05:15] VITALS: BP 180/92
[2017-08-15] MEDS: ASPIRIN 81 MG ENTERIC TAB PO SCH (06:55)
[2017-08-15] MEDS: metroNIDAZOLE (FLAGYL) 500 MG TAB PO SCH ×3 (06:55→21:05)
[2017-08-15] MEDS: LOSARTAN 50 MG TAB PO SCH (06:55)
[2017-08-15] MEDS: ATENOLOL 25 MG TAB PO SCH (06:55)
[2017-08-15] MEDS: LEVOTHYROXINE 137MCG TABLET (0.137MG) PO SCH (06:55)
[2017-08-15] MEDS: PERCOCET 5MG/325MG TAB PO PRN (06:56)
[2017-08-15] MEDS: SYMBICORT 160/4.5MCG INHALER 6GM INH SCH ×2 (07:47→20:15)
[2017-08-15] MEDS ORDERED: LIDOCAINE 1% SDV 5 ML VIAL SQ ONE (11:00)
--- NOTE | 2017-08-15 11:35 | IPN ---
DATE: 08/15/2017 Mrs. Blackmon is seen this morning during hemodialysis. She is quite upset as she wants to go home. She denies any nausea, vomiting, dyspnea or chest pain. She does have chronic obstructive pulmonary disease (COPD), which is stable at about baseline. She has been half-way facility (SNF) status as she is waiting for a rehab bed. Apparently, her family had indicated that they are unable to take care of her at home and the patient has required significant assistance due to multiple comorbid conditions. PHYSICAL EXAMINATION: Her temperature is 99 degrees Fahrenheit, heart rate 70 per minute and respiratory rate 20 per minute. Blood pressure 157/78 mmHg. Oxygen saturation 92% on 2 liters of oxygen. Head is atraumatic. Neck is supple and without jugular venous distention (JVD) or thyroid enlargement. Heart sounds are regular and lungs clear to auscultation with moderate bilateral air entry. Abdomen is soft and large polycystic kidneys are easily palpable. Bowel sounds are present. Extremities have no cyanosis or clubbing. She has a fractured right humerus and sling is in place. She did not have any new labs for the last few days. PROBLEMS: 1. End-stage renal disease. The patient is currently being dialyzed. She is tolerating dialysis treatment reasonably well. 2. Hypertension. Blood pressure is low during dialysis. We had to back off on the ultrafiltration goal due to hypotension. At this point, I would suggest to continue with her chronic antihypertensive medications without any adjustment today. We will reevaluate her blood pressure after dialysis. 3. Anemia. Her anemia has been stable and she has not required any transfusions. She receives Aranesp 100 mcg once a week. 4. COPD. This is chronic and stable. She will continue with her chronic management. DISPOSITION: Patient wishes to go home. I will defer any decision to primary care team and physical therapist. She remains SNF status waiting for a rehab bed.
[2017-08-15 18:50] VITALS: BP 158/82
[2017-08-15] MEDS: LORazepam 0.5 MG TAB PO SCH (21:05)
[2017-08-15] MEDS: ESCITALOPRAM OXALATE 10 MG TAB (LEXAPRO) PO SCH (21:06)
[2017-08-16] MEDS: LEVOTHYROXINE 137MCG TABLET (0.137MG) PO SCH (05:33)
[2017-08-16] MEDS: metroNIDAZOLE (FLAGYL) 500 MG TAB PO SCH ×3 (05:34→22:00)
[2017-08-16 06:06] VITALS: BP 168/84
[2017-08-16] MEDS: SYMBICORT 160/4.5MCG INHALER 6GM INH SCH ×2 (07:32→21:13)
[2017-08-16] MEDS: ATENOLOL 25 MG TAB PO SCH (08:33)
[2017-08-16] MEDS: ASPIRIN 81 MG ENTERIC TAB PO SCH (08:34)
[2017-08-16] MEDS: LOSARTAN 50 MG TAB PO SCH (08:34)
[2017-08-16 09:30] VITALS: BP 106/62
[2017-08-16] MEDS: ACETAMINOPHEN TAB 650MG DOSE (2X325MG) PO PRN (13:52)
[2017-08-16] MEDS: ESCITALOPRAM OXALATE 10 MG TAB (LEXAPRO) PO SCH (22:00)
[2017-08-16] MEDS: LORazepam 0.5 MG TAB PO SCH (22:00)
[2017-08-17 05:22] VITALS: BP 173/86
[2017-08-17] MEDS: ATENOLOL 25 MG TAB PO SCH (06:11)
[2017-08-17] MEDS: LOSARTAN 50 MG TAB PO SCH (06:12)
[2017-08-17] MEDS: LEVOTHYROXINE 137MCG TABLET (0.137MG) PO SCH (06:13)
[2017-08-17] MEDS: ASPIRIN 81 MG ENTERIC TAB PO SCH (06:13)
[2017-08-17] MEDS: metroNIDAZOLE (FLAGYL) 500 MG TAB PO SCH ×3 (06:14→21:12)
[2017-08-17] MEDS: SYMBICORT 160/4.5MCG INHALER 6GM INH SCH ×2 (08:11→20:21)
[2017-08-17 10:06] LABS: MEAN CORPUSCULAR HEMOGLOBIN 31.9 pg (27.0-33.0); MEAN CORPUSCULAR HGB CONC 32.2 g/dl (32.0-36.5); MEAN CORPUSCULAR VOLUME 99.1 fl (80.0-96.0); RED CELL DISTRIBUTION WIDTH 16.3 % (11.5-14.5); WHITE BLOOD COUNT 8.2 10^3/uL (4.0-10.0)
[2017-08-17 10:21] LABS: CALCIUM LEVEL 8.1 MG/DL (8.8-10.2); CREATININE FOR GFR 5.44 MG/DL (0.55-1.02); GLOMERULAR FILTRATION RATE 8.3 (>45); PHOSPHORUS LEVEL 2.1 MG/DL (2.5-4.9); POTASSIUM SERUM 4.1 MEQ/L (3.5-5.1)
[2017-08-17] MEDS ORDERED: LIDOCAINE 1% SDV 5 ML VIAL SQ ONE (12:15)
[2017-08-17 12:45] VITALS: BP 140/60
--- NOTE | 2017-08-17 16:54 | IPN ---
DATE: 08/17/2017 Mrs. Blackmon is seen this morning during hemodialysis. She is in good spirits today and denies any complaints. She has been weak and not able to take care of herself at home. She is currently waiting for a subacute rehabilitation bed. The patient reports eating well and denies any nausea, vomiting or abdominal pain. She has no dyspnea, chest pain or leg edema. She has no fever or chills. PHYSICAL EXAMINATION: Temperature 98.5 degrees Fahrenheit, heart rate 60 per minute and respiratory rate 16 per minute. Blood pressure 173/86 mmHg and oxygen saturation 96%. Her head is atraumatic. Neck supple and without JVD or thyroid enlargement. Ears, nose and throat are unremarkable. Pupils equal and reactive to light and sclerae is anicteric. Heart sounds are regular and lungs clear to auscultation. Abdomen soft and nontender with large polycystic kidneys. Extremities have no cyanosis or clubbing. Skin has no rash or ulcers. Neurologically she is awake, alert and oriented times three. Today's labs show WBC count 8.2, hemoglobin 10.5 and hematocrit 32.6. Sodium 138 and potassium 4.1. BUN 40 and creatinine 5.44. Calcium level 8.1 and phosphorus only 2.1. PROBLEMS: 1. End-stage renal disease. The patient is being dialyzed today. She is tolerating her dialysis treatment well. 2. Hypertension. Blood pressure is slightly high today. She has been on losartan 100 mg daily and atenolol 25 mg daily. We will consider to add low-dose calcium channel gregory after dialysis today if her blood pressure does not come down. 3. Anemia. Her anemia is stable and she will continue with Aranesp 100 mcg once a week. 4. Generalized weakness and deconditioning. The patient is waiting for a subacute bed and remains on SNF status.
[2017-08-17] MEDS: LORazepam 0.5 MG TAB PO SCH (21:12)
[2017-08-17] MEDS: PERCOCET 5MG/325MG TAB PO PRN (21:12)
[2017-08-17] MEDS: ESCITALOPRAM OXALATE 10 MG TAB (LEXAPRO) PO SCH (21:12)
[2017-08-18] MEDS: metroNIDAZOLE (FLAGYL) 500 MG TAB PO SCH ×2 (05:36→15:23)
[2017-08-18] MEDS: LEVOTHYROXINE 137MCG TABLET (0.137MG) PO SCH (05:36)
[2017-08-18 06:00] VITALS: BP 140/70
[2017-08-18] MEDS: SYMBICORT 160/4.5MCG INHALER 6GM INH SCH (07:39)
[2017-08-18 09:02] VITALS: BP 156/80
[2017-08-18] MEDS: ATENOLOL 25 MG TAB PO SCH (09:02)
[2017-08-18] MEDS: LOSARTAN 50 MG TAB PO SCH (09:02)
[2017-08-18] MEDS: ASPIRIN 81 MG ENTERIC TAB PO SCH (09:02)
[2017-08-18 09:13] VITALS: BP 132/81
[2017-08-18] MEDS ORDERED: FLAG500T PO (14:28)
[2017-08-18] MEDS ORDERED: ATEN25TA PO (14:28)
--- NOTE | 2017-08-20 18:58 | DSES ---
DATE OF ADMISSION: 08/05/2018 DATE OF DISCHARGE: 08/18/2017 PRIMARY CARE PROVIDER: BILL Horta INPATIENT CONSULTANTS: Dr. Dr. Asa Mena and Dr. Chris Garces PROCEDURE: Done. COMPLICATIONS: None. DISCHARGE DIAGNOSES: 1. Clostridium difficile colitis. 2. End-stage renal disease, on hemodialysis secondary to polycystic kidney disease. 3. Polycystic kidney disease. 4. Polycystic liver disease. 5. Hypertension. 6. Chronic obstructive pulmonary disease (COPD). 7. Hypothyroidism. 8. Depression. 9. Chronic back pain. 10. Hypothyroidism. 11. Active tobacco abuse. HOSPITALIZATION COURSE: Patient is a 66-year-old female who presented to [facility] on 08/05/2017 after missing her regular hemodialysis in the outpatient setting. [employer] had been consulted and patient underwent urgent dialysis. Later, due to the safe discharge planning and patient's decompensated physical condition, social work faculty member was consulted to assist in safe discharge planning, and patient discharged to alternative level of care (ALC) status on 08/08/2017. Later, patient was found to have significant loose stools. Gastrointestinal (GI) panel was performed. Patient found to have Clostridium (C) difficile and patient started oral Flagyl therapy. Patient continued to follow with physical therapy. Later, after multiple discussions with hospitalist staff and the family member, family member agreed to provide 24/7 care for the patient, and the patient will have home health services arrangement to provide additional care. On 08/18/2017, patient was discharged home. OBJECTIVE: VITAL SIGNS: Temperature 99.1, pulse 60, respirations 16, blood pressure 132/81, pulse oximetry 93% on room air. LABORATORY DATA: The most recent laboratory data showed WBC 8.2, hemoglobin 10.5, hematocrit 32.6, platelet count 208. Sodium 138, potassium 4.1, chloride 101, carbon dioxide 25, BUN 40, creatinine 5.44, GFR is 8.3, fasting glucose 153, calcium 8.1, phosphorus 2.1. Ammonia level is 3. Microbiology: Blood cultures negative after 5 days. Sample obtained from 08/05/2017. Gastrointestinal (GI) panel on 08/12/2017 is positive for C. Difficile. IMAGING STUDIES: CT of the head without contrast on 08/05/2017 showed age-related atrophy and microvascular ischemic change. No acute intracranial hemorrhages, infarction, mass, or mass effect. Left foot complete x-ray on 08/05/2017 showed age-related alone with atherosclerotic disease. No acute fracture or dislocation. A chest x-ray on 08/05/2017 showed no active disease. Known right proximal humerus fracture. DISCHARGE MEDICATIONS: - atenolol 25 mg by mouth daily - Flagyl 500 mg by mouth every 8 hours for 7 more days - Activa one tablet by mouth daily - Ventolin two puffs inhalation every 4 hours as needed - aspirin 81 mg by mouth four times a week - Symbicort two puffs inhalation twice a day - Lexapro 30 mg by mouth at bedtime - Incruse Ellipta one puff inhalation daily - Atrovent two puffs inhalation four times a day as needed - Synthroid 137 mcg by mouth daily - lorazepam 1 mg by mouth at bedtime - losartan 100 mg by mouth daily - Mejestrol 20 mg by mouth before food and at bedtime - Percocet one tablet by mouth every 6 hours as needed - Arielle-Roby one tablet by mouth daily DISCHARGE INSTRUCTIONS: Discontinue line. Discharge home. Activity as tolerated. Patient should be on fall precautions. Low-salt diet as tolerated. Patient should followup with her primary care provider in 1-2 weeks. DISCHARGE TIME: Greater than 30 minutes. DISCHARGE CONDITION: Guarded.
== END 2017-08-18 18:37 | disposition home health service (06) | DRG 682 ==
LOC: M ED 12:32 → M ED INP 17:40 → M MSPAV 20:17
PROVIDERS: ADMIT Family Medicine; ATTEND Internal Medicine
PROC: 5A1D00Z (ICD-10-PCS; principal; 2017-08-06)
DX: I12.0 Hypertensive chronic kidney disease with stage 5 chronic kidney disease or end stage renal disease (principal); N18.6 End stage renal disease; E87.1 Hypo-osmolality and hyponatremia; A04.7 Enterocolitis due to Clostridium difficile; Q61.3 Polycystic kidney, unspecified; Q44.6 Cystic disease of liver; S42.201D Unspecified fracture of upper end of right humerus, subsequent encounter for fracture with routine healing; J44.9 Chronic obstructive pulmonary disease, unspecified; E03.9 Hypothyroidism, unspecified; F17.200 Nicotine dependence, unspecified, uncomplicated; M54.5 Low back pain; F32.9 Major depressive disorder, single episode, unspecified; Z79.899 Other long term (current) drug therapy; Z79.82 Long term (current) use of aspirin; F41.9 Anxiety disorder, unspecified; Z88.5 Allergy status to narcotic agent; Z88.8 Allergy status to other drugs, medicaments and biological substances; E83.39 Other disorders of phosphorus metabolism; D63.1 Anemia in chronic kidney disease

== ENCOUNTER 2017-09-28 14:40 | Inpatient (IN) | payer MEDICARE, MEDICAID ==
[~2017-09-28] VITALS: Ht 157.5 cm; Wt 38.8 kg
[~2017-09-28 14:40] MED LIST changes: +FLAG500T PO; +MEGE20TA3 PO
[2017-09-28] MEDS ORDERED: methylPREDNISolone INJ 125 MG/2 ML VIAL (J2930) IV ONE (15:30)
[2017-09-28 15:38] LABS: BASO % 0.2 % (0.0-1.0); EOS # 0.1 10^3/uL (0.0-0.50); EOS % 0.5 % (0.0-3.0); IMMATURE GRANULOCYTE % 0.8 % (0-0); LYMPH # 0.9 10^3/uL (1.5-4.5); LYMPH % 8.5 % (24.0-44.0); MEAN CORPUSCULAR HEMOGLOBIN 31.5 pg (27.0-33.0); MEAN CORPUSCULAR HGB CONC 30.8 g/dl (32.0-36.5); MEAN CORPUSCULAR VOLUME 102.3 fl (80.0-96.0); MONO # 0.1 10^3/uL (0.0-0.8); MONO % 1.4 % (0.0-5.0); NEUTROPHILS % 88.6 % (36.0-66.0); PLATELET COUNT, AUTOMATED 190 10^3/uL (150-450); RED CELL DISTRIBUTION WIDTH 17.2 % (11.5-14.5); WHITE BLOOD COUNT 10.1 10^3/uL (4.0-10.0)
[2017-09-28] MEDS: IPRATROPIUM 0.5MG/ALBUTEROL 2.5MG INH SOL UD 3ML (DUONEB)(J7620) NEB PRN ×3 (15:40→16:12)
[2017-09-28 15:44] LABS: ABG BASE EXCESS -0.3 (-2.0-2.0); ABG HCO3 26.2 MEQ/L (22.0-26.0); ABG PARTIAL PRESSURE CO2 51.6 mmHg (35.0-45.0); ABG PARTIAL PRESSURE O2 36.3 mmHg (75.0-100.0); ABG STANDARD HCO3 23.7 MEQ/L (22.0-26.0); ABG TOTAL CO2 27.8 MEQ/L (23.0-31.0); ABG pH (ARTERIAL) 7.324 UNITS (7.350-7.450)
[2017-09-28 16:10] LABS: ANION GAP 11 MEQ/L (8-16); BLOOD UREA NITROGEN 44 MG/DL (7-18); CALCIUM LEVEL 8.3 MG/DL (8.8-10.2); CARBON DIOXIDE LEVEL 26 MEQ/L (21-32); CHLORIDE LEVEL 106 MEQ/L (98-107); CREATININE FOR GFR 4.62 MG/DL (0.55-1.02); GLUCOSE, FASTING 93 MG/DL (80-110); POTASSIUM SERUM 4.5 MEQ/L (3.5-5.1); SODIUM LEVEL 143 MEQ/L (136-145)
[2017-09-28 16:20] LABS: ABG BASE EXCESS -2.1 (-2.0-2.0); ABG HCO3 23.6 MEQ/L (22.0-26.0); ABG PARTIAL PRESSURE CO2 44.4 mmHg (35.0-45.0); ABG STANDARD HCO3 22.8 MEQ/L (22.0-26.0); ABG pH (ARTERIAL) 7.344 UNITS (7.350-7.450)
[2017-09-28 16:22] LABS: ABG PARTIAL PRESSURE O2 365.7 mmHg (75.0-100.0)
--- NOTE | 2017-09-28 16:25 | REP ---
Chest one-view HISTORY: Cough Comparison: 08/05/2017 The lungs are clear. The heart is normal in size. The pulmonary vasculature is normal in appearance. Impression: No acute disease. Signed by Omar Steele MD 09/28/2017 04:16 P
[2017-09-28] MEDS ORDERED: MINO2.5T PO (17:16)
[2017-09-28] MEDS ORDERED: LORA1TAB12 PO (17:16)
[2017-09-28] MEDS ORDERED: ATEN50TA2 PO (17:16)
[2017-09-28] MEDS ORDERED: PRED10TA2 PO (17:16)
[2017-09-28 17:45] LABS: INR 1.03
[2017-09-28 17:46] LABS: ALBUMIN 3.4 GM/DL (3.2-5.2); ALBUMIN/GLOBULIN RATIO 1.36 (1.00-1.93); ALKALINE PHOSPHATASE 88 U/L (45-117); ALT/SGPT 18 U/L (12-78); AST/SGOT 21 U/L (7-37); BILIRUBIN,DIRECT 0.2 MG/DL (0.0-0.2); BILIRUBIN,TOTAL 0.5 MG/DL (0.2-1.0); PHOSPHORUS LEVEL 5.7 MG/DL (2.5-4.9); TOTAL PROTEIN 5.9 GM/DL (6.4-8.2)
[2017-09-28] MEDS ORDERED: ALPRAZolam 0.25 MG TAB PO PRN (18:00)
[2017-09-28] MEDS ORDERED: BISACODYL 5 MG TAB PO PRN (18:00)
[2017-09-28] MEDS: hydrALAZINE INJ 20 MG/ML VIAL IV SCH ×2 (18:00→21:42)
[2017-09-28] MEDS ORDERED: IPRATROPIUM 0.5MG/ALBUTEROL 2.5MG INH SOL UD 3ML (DUONEB)(J7620) NEB PRN (18:00)
[2017-09-28] MEDS ORDERED: METOCLOPRAMIDE INJ 10MG/2ML VIAL (J2765) IV PRN (18:00)
[2017-09-28] MEDS ORDERED: NICOTINE 21MG/24HR 1 EA TRANSDERMAL TD PRN (18:15)
[2017-09-28] MEDS ORDERED: ATENOLOL 50 MG TAB PO ONE (18:15)
--- NOTE | 2017-09-28 19:29 | HPE ---
DATE OF ADMISSION: 09/28/2017 Time patient was seen was at 5:00 p.m. The patient's primary care provider is BILL Horta. The patient's lead rider is Dr. Mena. CHIEF COMPLAINT: Shortness of breath. HISTORY OF PRESENT ILLNESS: A 66-year-old female with a past medical history of chronic anemia, end-stage renal disease with polycystic kidney disease, diastolic heart failure, hypertensive lung disease, hypertension, chronic obstructive pulmonary disease (COPD), chronic back pain, hypothyroidism, depression, polycystic liver disease, tobacco dependence, and history of Clostridium (C) difficile who presented with increased shortness of breath which started on Tuesday. Per patient, she felt better after dialysis on Tuesday. However, it has been getting worse and today she missed her dialysis due to she was so short of breath and she presented to the emergency room. Per patient, she also has increased cough and increased sputum production. However, sputum has been clear so far. Denies any fever or chills or any chest pain. Denies any abdominal pains, nausea, vomiting, diarrhea, constipation, or any problems with urination, burning on urination, or any blood in the urine. Denies any rash, ulcerations, lumps or bumps anywhere, or any sick contact. ALLERGIES: The patient is allergic to CODEINE and LISINOPRIL. The patient gets severe tongue swelling with LISINOPRIL. HOME MEDICATIONS: Include: - Activella one tablet by mouth daily - Ventolin two puff inhalation every four hours as needed - albuterol sulfate 2.5 mg one inhalation every four hours as needed - aspirin 81 mg one tablet by mouth four times per week on Tuesday, Tuesday, , Tuesday and Tuesday - atenolol 50 mg one tablet by mouth twice a day - Symbicort two puff inhalation twice a day - Lexapro 30 mg by mouth at bedtime - Incruse Ellipta one puff inhalation daily - Atrovent two puff inhalation four times a day as needed - Synthroid 137 mcg one tablet by mouth daily - Ativan 1 mg by mouth at bedtime - Ativan 1 mg by mouth twice a day as needed - losartan 100 mg one tablet by mouth daily - minoxidil 2.5 mg one tablet by mouth daily - prednisone 10 mg one tablet by mouth daily PAST MEDICAL HISTORY: Includes: 1. End-stage renal disease on hemodialysis Tuesday, Tuesday and Tuesday with polycystic kidney disease and also polycystic liver disease. 2. Diastolic heart failure with preserved ejection fraction. 3. Hypertensive heart disease and hypertensive lung disease. 4. Hypertension. 5. Chronic obstructive pulmonary disease (COPD). 6. Chronic back pain. 7. Hypothyroidism. 8. Depression. 9. Tobacco dependence. 10. History of Clostridium (C) difficile. PAST SURGICAL HISTORY: 1. Right femur repair. 2. Arteriovenous (AV) fistula placement. SOCIAL HISTORY: The patient is retired. She smokes one pack per day for 30 years. Denies any drinking or recreational drug use. FAMILY HISTORY: Denies. REVIEW OF SYSTEMS: GENERAL: The patient denies any recent traveling, sick contacts, any significant weight changes, any fever or chills. HEENT: Denies any changes with vision, smell, hearing or taste. CARDIOVASCULAR: Denies any chest pain. Admits to shortness of breath. PULMONARY: Admits to chronic obstructive pulmonary disease (COPD) and shortness of breath and also smoking currently. GASTROINTESTINAL: Denies any abdominal pain, nausea, vomiting, diarrhea, or constipation. The patient, however, does have severe polycystic liver disease. GENITOURINARY: The patient is still making a little urine. However, no burning on urination, blood, or painful urination. MUSCULOSKELETAL: Denies any pain anywhere else. ENDOCRINE: Denies any heat or cold intolerance. HEMATOLOGY/ONCOLOGY: Denies any easy bruising or any bleeding anywhere. SKIN: Denies any rash, ulceration, lumps or bumps anywhere. NEUROLOGIC: Denies any weakness on any side of her body or any change of sensations. PSYCHIATRIC: Denies any anxiety or depression. PHYSICAL EXAMINATION: VITAL SIGNS: Temperature 96.8, pulse 64, respiratory rate 20, blood pressure was 102/115, oxygen was saturating at 100% on two liters of nasal cannula. The patient was saturating as low as 85% on two liters of nasal cannula. GENERAL: The patient is a very thin, elderly female who was awake, alert, and oriented times three. She appears to be in mild distress, laying comfortably in bed with head elevated at 30 degrees. HEENT: Normocephalic, atraumatic. Extraocular motor intact. Mucous moist. NECK: Supple. No neck lymphadenopathy. The patient does have a positive jugular venous distention (JVD) through the lower jaw. CARDIOVASCULAR: Regular rate and rhythm, normal S1, S2. No murmurs. LUNGS: Diffuse wheezing and also rales with poor air entry bilaterally. ABDOMEN: There were palpable masses in the patient's abdomen likely due to polycystic liver disease. However, it was soft and no peritoneal signs. No ecchymosis. EXTREMITIES: No clubbing, cyanosis, or edema. SKIN: Warm and dry. NEUROLOGIC: Cranial nerves II-XII intact. No focal neurologic deficit. LABORATORY DATA: WBC 10.1, hemoglobin 9.8, hematocrit is 31.8, with platelet count of 490 and MCV of 102.3. Sodium 143, potassium 4.5, chloride 106, bicarbonate 26, anion gap 11, BUN 44, creatinine 4.62, GFR 10%, fasting glucose 93, lactic acid 0.8, calcium 8.3, phosphorus was elevated at 5.7, magnesium 2, total bilirubin 0.5, direct bilirubin 2.2, AST 21, ALT 18, alkaline phosphatase 88, CK 36, CK-MB 3.3, troponin 0.03, BNP 175,000. Protein 5.9, albumin 3.4. ABG shows pH of 7.34, pCO2 44.3, pO2 165, saturation 99.8 with base excess of -2.1. PT 13.6, INR 1.03, PTT 24.7. Blood culture times four pending. The patient had a portable chest x-ray in the emergency room which shows no acute disease. However, reviewing the film personally shows cephalization. ASSESSMENT AND PLAN: A 66-year-old female with multiple comorbidities, most significantly end-stage renal disease, polycystic kidney disease and polycystic liver disease, diastolic heart failure, hypertensive lung disease, hypertension, chronic obstructive pulmonary disease (COPD), chronic back pain, hypothyroidism, depression, tobacco dependence, and history of Clostridium (C) difficile who presented with: 1. Shortness of breath with respiratory distress on chronic obstructive pulmonary disease, bronchitis. Likely represents a COPD exacerbation with increased sputum production and cough. However, she is in fluid overload from missing her dialysis today. Solu-Medrol 60 mg every eight hours has been started as well as azithromycin and DuoNebs and the patient's home inhaler. Nephrology has also been consulted to perform hemodialysis for the patient. We will continue to monitor the patient's intake and output and the patient's weight closely. We will limit the patient's fluid intake to 1.5 liters per day. 2. Elevated QT on EKG. The patient's EKG showed sinus rhythm with premature ventricular contraction (PVC) and prolonged QT. Ventricular rate was 69. We will continue to monitor. Repeat EKG in the morning. 3. Mildly elevated white blood cell (WBC) of 10, likely due to COPD exacerbation. We started azithromycin. 4. Chronic anemia with hemoglobin of 9.8 and MCV of 102. Iron studies, B12 and folate have been ordered. We will followup. 5. End-stage renal disease on hemodialysis Tuesday, Tuesday and Tuesday and polycystic kidney disease. Continue dialysis per nephrology. 6. Diastolic heart failure. Brain natriuretic peptide (BNP) was severely elevated of 175,000. Nephrology has been consulted for hemodialysis. We will limit the patient's oral intake to 1.5 lit[address] day and place the patient on two-gram low sodium renal diet, COPD diet and low-fat, low-cholesterol diet. 7. Hypertensive lung disease and heart disease with hypertension. Echocardiogram on 04/28/2017 shows ejection fraction of 70% with anterior left ventricular diastolic function, moderately severe pulmonary hypertension, elevated central venous pressure (CVP). 8. COPD, bronchitis. The patient still smokes. 9. Chronic back pain. Continue Tylenol. 10. Hypothyroidism. Continue Synthroid. 11. Depression. Continue selective serotonin reuptake inhibitor (SSRI). 12. Polycystic liver disease. International normalized ratio (INR) appears to be within normal range. There is no liver enzyme elevation. 13. Tobacco dependence. Started the patient on a nicotine patch as needed. 14. History of C. difficile. The patient did have one diarrhea prior to admission. If the patient has increased diarrhea, we will consider followup with a CT study. 15. Deep vein thrombosis (DVT) prophylaxis with weight-based Lovenox. 16. Fluid, electrolytes and nutrition. The patient appears to be fluid overloaded. Therefore, no IV fluid. Potassium is within normal limits. We will keep it around 4. The patient is currently on a renal, COPD, and congestive heart failure (CHF) diet. DISPOSITION: Nephrology has been consulted. We will follow their recommendations. Likely, the patient will need hemodialysis. The patient has been discussed with attending doctor, Dr. Ulloa. My preceptor for this patient encounter was Dr. Kenneth Ulloa. The preceptor was physically present in the building during the encounter and was fully available as needed. All aspects of the patient interview, examination, medical decision making process, and medical care plan development were reviewed and approved by the preceptor. The preceptor is aware and concurs with the plan as stated in the body of this note and will attest to such by his/her co-signature.
[2017-09-28] MEDS: IPRATROPIUM 0.5MG/ALBUTEROL 2.5MG INH SOL UD 3ML (DUONEB)(J7620) NEB SCH (20:00)
[2017-09-28] MEDS ORDERED: ESCITALOPRAM OXALATE 10 MG TAB (LEXAPRO) PO SCH (21:00)
[2017-09-28] MEDS: SYMBICORT 160/4.5MCG INHALER 6GM INH SCH (21:12)
[2017-09-28 23:19] VITALS: BP 180/87
[2017-09-28] MEDS ORDERED: SLF 3 ML SYR IV PRN (23:45)
[2017-09-29] MEDS: SENOKOT S TAB PO SCH ×3 (00:56→20:35)
[2017-09-29] MEDS: ESCITALOPRAM OXALATE 10 MG TAB (LEXAPRO) PO SCH ×2 (00:56→20:34)
[2017-09-29] MEDS: AZITHROMYCIN INJ 500 MG, VIAL MATE ADAPTER 1 EACH in D5W 250 ML IV SCH ×2 (00:57→22:01)
[2017-09-29] MEDS: methylPREDNISolone INJ 125 MG/2 ML VIAL (J2930) IV SCH ×3 (00:57→20:34)
[2017-09-29] MEDS: IPRATROPIUM 0.5MG/ALBUTEROL 2.5MG INH SOL UD 3ML (DUONEB)(J7620) NEB SCH ×4 (01:47→20:25)
[2017-09-29 04:00] VITALS: BP 175/97
[2017-09-29] MEDS: ACETAMINOPHEN TAB 650MG DOSE (2X325MG) PO PRN ×4 (04:20→20:35)
[2017-09-29] MEDS: hydrALAZINE INJ 20 MG/ML VIAL IV SCH ×3 (05:56→18:00)
[2017-09-29] MEDS: LEVOTHYROXINE 137MCG TABLET (0.137MG) PO SCH (05:56)
[2017-09-29] MEDS: SLF 3 ML SYR IV SCH ×3 (05:57→22:01)
[2017-09-29 06:10] LABS: BASO % 0.2 % (0.0-1.0); IMMATURE GRANULOCYTE % 0.7 % (0-0); LYMPH # 0.8 10^3/uL (1.5-4.5); LYMPH % 13.8 % (24.0-44.0); MEAN CORPUSCULAR HEMOGLOBIN 31.3 pg (27.0-33.0); MEAN CORPUSCULAR HGB CONC 31.1 g/dl (32.0-36.5); MEAN CORPUSCULAR VOLUME 100.3 fl (80.0-96.0); MONO # 0.1 10^3/uL (0.0-0.8); MONO % 1.4 % (0.0-5.0); NEUTROPHILS # 4.9 10^3/uL (1.8-7.7); NEUTROPHILS % 83.9 % (36.0-66.0); PLATELET COUNT, AUTOMATED 217 10^3/uL (150-450); RED CELL DISTRIBUTION WIDTH 17.1 % (11.5-14.5); WHITE BLOOD COUNT 5.9 10^3/uL (4.0-10.0)
[2017-09-29 06:33] LABS: ANION GAP 11 MEQ/L (8-16); BLOOD UREA NITROGEN 56 MG/DL (7-18); CALCIUM LEVEL 8.3 MG/DL (8.8-10.2); CARBON DIOXIDE LEVEL 25 MEQ/L (21-32); CHLORIDE LEVEL 105 MEQ/L (98-107); CREATININE FOR GFR 5.12 MG/DL (0.55-1.02); FERRITIN 1929 NG/ML (8-252); GLOMERULAR FILTRATION RATE 8.9 (>45); GLUCOSE, FASTING 126 MG/DL (80-110); PERCENT SATURATION 33.7 % (13.2-45.0); POTASSIUM SERUM 4.9 MEQ/L (3.5-5.1); SODIUM LEVEL 141 MEQ/L (136-145); TOTAL IRON BINDING CAPACITY 178 UG/DL (250-450)
[2017-09-29] MEDS: SYMBICORT 160/4.5MCG INHALER 6GM INH SCH ×2 (07:17→20:25)
--- NOTE | 2017-09-29 07:39 | ECGEPIP ---
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
[2017-09-29 08:00] VITALS: BP 167/83
[2017-09-29] MEDS: ENOXAPARIN 30 MG/0.3 ML SYR (J1650) SC SCH (08:21)
[2017-09-29] MEDS: ATENOLOL 50 MG TAB PO SCH ×2 (08:22→20:23)
[2017-09-29] MEDS: LOSARTAN 50 MG TAB PO SCH (08:23)
[2017-09-29] MEDS: MINOXIDIL 2.5 MG TAB PO SCH (08:23)
[2017-09-29] MEDS: ASPIRIN 81 MG ENTERIC TAB PO SCH (08:23)
[2017-09-29] MEDS ORDERED: ENOXAPARIN 40 MG/0.4 ML SYRINGE (J1650) SC SCH (09:00)
[2017-09-29 10:27] LABS: FOLATE > 24.0 NG/ML (>5.4); VITAMIN B12 LEVEL 561 PG/ML (247-911)
[2017-09-29] MEDS ORDERED: LIDOCAINE 1% SDV 5 ML VIAL SQ ONE (11:00)
[2017-09-29 13:00] VITALS: BP 168/92
[2017-09-29] MEDS: NORCO, ANEXSIA 5/325MG TABLET (HYDROcodone/ACETAMINOPHEN) PO PRN ×2 (15:51→22:02)
[2017-09-29 16:00] VITALS: BP 130/80
--- NOTE | 2017-09-29 18:38 | IPNPDOC ---
Text Note Date of Service The patient was seen on 09/29/17. NOTE no acute events, reported cough and sob improved. undergoing HD. denied CP, abd pain GENERAL:frail, nad, aaox3 HEENT: Normocephalic, atraumatic. Extraocular motor intact. Mucous moist. NECK: Supple. N CARDIOVASCULAR: Regular rate and rhythm, normal S1, S2. No murmurs. LUNGS: Diffuse wheezing good air movement ABDOMEN: There were palpable masses in the patient's abdomen likely due to polycystic liver disease. However, it was soft and no peritoneal signs. No ecchymosis. +BS EXTREMITIES: No clubbing, cyanosis, or edema. SKIN: Warm and dry. NEUROLOGIC: Cranial nerves II-XII intact. No focal neurologic deficit. 66-year-old female with multiple comorbidities, most significantly end-stage renal disease, polycystic kidney disease and polycystic liver disease, diastolic heart failure, hypertensive lung disease, hypertension, chronic obstructive pulmonary disease (COPD), chronic back pain, hypothyroidism, depression, tobacco dependence, and history of Clostridium (C) difficile who presented with: sob, cough missing HD 1. Shortness of breath with respiratory distress 2/2 acute chronic obstructive pulmonary disease, bronchitis. with increased sputum production and cough. However, she is in fluid overload from missing her dialysis . Solu-Medrol taper as tolerated azithromycin and DuoNebs and the patient's home inhaler. Nephrology has also been consulted to perform hemodialysis for the patient. We will continue to monitor the patient's intake and output and the patient's weight closely. We will limit the patient's fluid intake to 1.5 liters per day. culture, respiratory panel 2. Elevated QT on EKG. The patient's EKG showed sinus rhythm with premature ventricular contraction (PVC) and prolonged QT. Ventricular rate was 69. We will continue to monitor. Repeat EKG in the morning. 3. Mildly elevated white blood cell (WBC) of 10, likely due to COPD exacerbation. We started azithromycin. 4. Chronic anemia workup ordered f/u hh 5. End-stage renal disease on hemodialysis Tuesday, Tuesday and Tuesday and polycystic kidney disease. Continue dialysis per nephrology. 6. Diastolic heart failure. Brain natriuretic peptide (BNP) was severely elevated of 175,000. Nephrology has been consulted for hemodialysis. We will limit the patient's oral intake to 1.5 liters [address] day and place the patient on two-gram low sodium renal diet, COPD diet and low-fat, low-cholesterol diet. 7. Hypertensive lung disease and heart disease with hypertension. Echocardiogram on 04/28/2017 shows ejection fraction of 70% with anterior left ventricular diastolic function, moderately severe pulmonary hypertension, elevated central venous pressure (CVP). c/w bp meds 8. COPD, bronchitis. The patient still smokes. 9. Chronic back pain. Continue Tylenol. 10. Hypothyroidism. Continue Synthroid. 11. Depression. Continue selective serotonin reuptake inhibitor (SSRI). 12. Polycystic liver disease. International normalized ratio (INR) appears to be within normal range. There is no liver enzyme elevation. 13. Tobacco dependence. Started the patient on a nicotine patch as needed. 14. History of C. difficile. The patient did have one diarrhea prior to admission. If the patient has increased diarrhea, further test, probiotics 15. Deep vein thrombosis (DVT) prophylaxis with weight-based Lovenox. dispo frail, clinical improvement. VS,Fishbone, I+O VS, Fishbone, I+O Laboratory Tests 09/29/17 05:35 Red Blood Count 3.04 L, Mean Corpuscular Volume 100.3 H, Mean Corpuscular Hemoglobin 31.3, Mean Corpuscular Hemoglobin Concent 31.1 L, Red Cell Distribution Width 17.1 H, Neutrophils (%) (Auto) 83.9 H, Lymphocytes (%) (Auto ) 13.8 L, Monocytes (%) (Auto) 1.4, Eosinophils (%) (Auto) 0.0, Basophils (%) ( Auto) 0.2, Neutrophils # (Auto) 4.9, Lymphocytes # (Auto) 0.8 L, Monocytes # ( Auto) 0.1, Eosinophils # (Auto) 0.0, Basophils # (Auto) 0.0, Calcium Level 8.3 L Vital Signs Date Time Temp Pulse Resp B/P (MAP) Pulse Ox O2 Delivery O2 Flow Rate FiO2 09/29/17 18:00 156/90 09/29/17 17:00 Nasal Cannula 2.0 09/29/17 16:21 18 09/29/17 16:00 98.0 68 95 I&O- Last 24 Hours up to 6 AM 09/30/17 06:00 Intake Total 180 ml Output Total 2600 ml Balance -2420 ml SHYANNE KIMBALL MD Sep 29, 2017 18:38
[2017-09-29 20:00] VITALS: BP 111/61
--- NOTE | 2017-09-29 20:14 | ECGEPIP ---
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
[2017-09-29] MEDS: LORazepam 1 MG TAB PO SCH (20:34)
[2017-09-29 21:50] VITALS: BP 140/71
[2017-09-29] MEDS: **hydrALAZINE** 10 MG TAB PO SCH (23:28)
[2017-09-30] MEDS: IPRATROPIUM 0.5MG/ALBUTEROL 2.5MG INH SOL UD 3ML (DUONEB)(J7620) NEB SCH ×4 (01:24→19:21)
[2017-09-30] MEDS: LEVOTHYROXINE 137MCG TABLET (0.137MG) PO SCH (05:33)
[2017-09-30] MEDS: **hydrALAZINE** 10 MG TAB PO SCH ×4 (05:33→23:51)
[2017-09-30] MEDS: SLF 3 ML SYR IV SCH ×3 (05:33→20:40)
[2017-09-30 06:00] VITALS: BP 157/79
[2017-09-30 06:33] LABS: BASO % 0.1 % (0.0-1.0); EOS % 0.2 % (0.0-3.0); IMMATURE GRANULOCYTE % 0.8 % (0-0); LYMPH # 2.1 10^3/uL (1.5-4.5); LYMPH % 16.7 % (24.0-44.0); MEAN CORPUSCULAR HEMOGLOBIN 31.8 pg (27.0-33.0); MEAN CORPUSCULAR HGB CONC 31.6 g/dl (32.0-36.5); MEAN CORPUSCULAR VOLUME 100.7 fl (80.0-96.0); MONO % 7.8 % (0.0-5.0); NEUTROPHILS # 9.1 10^3/uL (1.8-7.7); NEUTROPHILS % 74.4 % (36.0-66.0); PLATELET COUNT, AUTOMATED 208 10^3/uL (150-450); RED CELL DISTRIBUTION WIDTH 17.1 % (11.5-14.5); WHITE BLOOD COUNT 12.2 10^3/uL (4.0-10.0)
[2017-09-30 06:56] LABS: CALCIUM LEVEL 8.3 MG/DL (8.8-10.2); CREATININE FOR GFR 3.89 MG/DL (0.55-1.02); GLOMERULAR FILTRATION RATE 12.2 (>45); MAGNESIUM LEVEL 2.1 MG/DL (1.8-2.4); POTASSIUM SERUM 3.3 MEQ/L (3.5-5.1)
--- NOTE | 2017-09-30 06:59 | CR ---
DATE OF CONSULTATION: 09/29/2017 REQUESTING PHYSICIAN: Eboni Mcgee MD. REASON FOR CONSULTATION: Shortness of breath in this lady with end-stage renal disease. HISTORY OF PRESENT ILLNESS: Mrs. Blackmon is a 66-year-old female with known history of end-stage renal disease secondary to polycystic kidneys. She also has advanced chronic obstructive pulmonary disease (COPD) with active smoking. She presented to the emergency room yesterday with shortness of breath. She was diagnosed with COPD exacerbation and probably also had mild volume overload as she had missed her dialysis treatment yesterday. Her condition improved with nebulizer treatment, and a nephrology consultation was requested for management of her end-stage renal disease. The patient is seen this morning. She is already feeling better today and her dyspnea is significantly improved. The patient denies any fever or chills. PAST MEDICAL AND SURGICAL HISTORY Significant for: 1. History of end-stage renal disease secondary to polycystic kidneys. 2. COPD with active smoking. 3. Hypertension. 4. Diastolic congestive heart failure. 5. Chronic back pain. 6. Hypothyroidism. 7. Depression. 8. Polycystic liver disease. 9. Prior history of Clostridium (C.) difficile colitis. Past surgical history is significant for arteriovenous (AV) fistula creation and right femur repair. MEDICATIONS: Her home medications include: - Ventolin inhaler two puffs every four hours as needed - aspirin 81 mg daily - atenolol 50 mg twice a day - Symbicort two puffs twice a day - Lexapro 30 mg at bedtime - Incruse Ellipta one puff daily - Atrovent two puffs four times a day as needed - Synthroid 137 mcg daily - Ativan 1 mg at bedtime and as needed - losartan 100 mg daily - minoxidil 2.5 mg daily - prednisone 10 mg daily PERSONAL AND SOCIAL HISTORY: The patient is retired and active smoker. She denies any alcohol use. FAMILY HISTORY: Significant for polycystic kidney disease and end-stage renal disease. Her daughter is also on dialysis due to end-stage renal disease. REVIEW OF SYSTEMS: The patient denies any fever or chills. She has been short of breath and got worse over last couple of days. She denies any hemoptysis or pleuritic type chest pain. Head and neck are negative for dizziness or lightheadedness. There is no history of nosebleed or sore throat. Cardiovascular system is significant for diastolic congestive heart failure and hypertension. She denies any chest pain or palpitations. Respiratory system is significant for shortness of breath but no hemoptysis or pleuritic type chest pain. Gastrointestinal (GI) system is significant for poor appetite. She denies any vomiting or diarrhea. Genitourinary () system is significant for polycystic kidney disease leading to end-stage renal disease. There is no dysuria or hematuria. Endocrine system is negative for diabetes. She does have hypothyroidism. Psychosocial system is significant for depression and anxiety. Neurological system is negative for seizures or stroke. Musculoskeletal system is significant for generalized weakness and deconditioning. Hematological system is negative for anticoagulation. She does have anemia of chronic kidney disease. Skin is negative for rash or ulcers. PHYSICAL EXAMINATION: Temperature 98 degrees Fahrenheit, heart rate 68 per minute and respiratory rate 18 per minute. Blood pressure 168/92 mmHg and oxygen saturation 95% on two liters oxygen. Head is atraumatic. Neck veins are mildly distended. She is emaciated and with loss of facial fat pad. Oral mucosa is somewhat dry. Pupils are equal and reactive to light and sclerae are anicteric. Heart sounds are regular with systolic murmur grade 1/6. Lungs with moderate air entry and mild expiratory wheezing. Abdomen is soft with large polycystic kidneys which are nontender. Bowel sounds are present. Extremities have no cyanosis or clubbing. AV fistula in her left arm is patent. Neurologically she is awake, alert and oriented times three. LABORATORY DATA: Today's WBC count is 5.9, hemoglobin 9.5 and hematocrit 30.5. Platelets 217. Sodium 141 and potassium 4.9. BUN 56 and creatinine 5.12. Calcium 8.3 and glucose 126. Iron level 60 and saturation 33.7%. Ferritin is 1929. Yesterday her pro-BNP level was 175,000. PROBLEMS: 1. Shortness of breath mostly related to chronic obstructive pulmonary disease (COPD) exacerbation. Elevated pro-brain natriuretic peptide (BNP) level is probably chronic. She does not have any significant volume overload clinically. She will be dialyzed today and will remove about two liters fluid as tolerated. Her chest x-ray also did not show any evidence of congestive heart failure or pleural effusion. 2. End-stage renal disease. The patient missed her dialysis treatment yesterday. She presented to the emergency room somewhat late. She is being dialyzed today. 3. Hypertension. Blood pressure control is reasonable when she takes her medications regularly. I would recommend to resume all her chronic antihypertensive medications. After dialysis, her blood pressure is likely to improve once we remove about two liters of fluid. 4. Anemia. Anemia is chronic and related to end-stage renal disease. Her iron studies are appropriate. We will consider a dose of Aranesp 100 mcg if her anemia does not improve. 5. Anxiety and depression. These are chronic issues and she does get quite anxious in the hospital. I suggest to continue with her chronic medications. I thank you for involving me in the care of Mrs. Blackmon. I will follow her along with you.
[2017-09-30] MEDS: SYMBICORT 160/4.5MCG INHALER 6GM INH SCH ×2 (07:37→19:19)
[2017-09-30] MEDS: ENOXAPARIN 30 MG/0.3 ML SYR (J1650) SC SCH (09:00)
[2017-09-30] MEDS: methylPREDNISolone INJ 125 MG/2 ML VIAL (J2930) IV SCH (09:14)
[2017-09-30] MEDS: NORCO, ANEXSIA 5/325MG TABLET (HYDROcodone/ACETAMINOPHEN) PO PRN (09:14)
[2017-09-30] MEDS: MINOXIDIL 2.5 MG TAB PO SCH (09:15)
[2017-09-30] MEDS: SENOKOT S TAB PO SCH ×2 (09:15→20:40)
[2017-09-30] MEDS: LOSARTAN 50 MG TAB PO SCH (09:15)
[2017-09-30] MEDS: ASPIRIN 81 MG ENTERIC TAB PO SCH (09:16)
[2017-09-30] MEDS: ATENOLOL 50 MG TAB PO SCH ×2 (09:16→20:40)
[2017-09-30] MEDS ORDERED: DARBEPOETIN 100 MCG/0.5 ML *DIALYSIS* SYRINGE (J0882) IV SCH (11:15)
[2017-09-30] MEDS: AZITHROMYCIN 250 MG TAB PO SCH (13:46)
[2017-09-30 14:00] VITALS: BP 130/70
--- NOTE | 2017-09-30 15:22 | IPNPDOC ---
Text Note Date of Service The patient was seen on 09/30/17. NOTE no acute events, reported cough and sob improved. undergoing HD. denied CP, abd pain GENERAL:frail, nad, aaox3 HEENT: Normocephalic, atraumatic. Extraocular motor intact. Mucous moist. NECK: Supple. N CARDIOVASCULAR: Regular rate and rhythm, normal S1, S2. No murmurs. LUNGS: minimum wheezing good air movement ABDOMEN: There were palpable masses in the patient's abdomen likely due to polycystic liver disease. However, it was soft and no peritoneal signs. No ecchymosis. +BS EXTREMITIES: No clubbing, cyanosis, or edema. SKIN: Warm and dry. NEUROLOGIC: Cranial nerves II-XII intact. No focal neurologic deficit. 66-year-old female with multiple comorbidities, most significantly end-stage renal disease, polycystic kidney disease and polycystic liver disease, diastolic heart failure, hypertensive lung disease, hypertension, chronic obstructive pulmonary disease (COPD), chronic back pain, hypothyroidism, depression, tobacco dependence, and history of Clostridium (C) difficile who presented with: sob, cough missing HD 1. Shortness of breath with respiratory distress 2/2 acute chronic obstructive pulmonary disease, bronchitis. with increased sputum production and cough. However, she is in fluid overload from missing her dialysis . Solu-Medrol taper as tolerated azithromycin and DuoNebs and the patient's home inhaler. Nephrology has also been consulted to perform hemodialysis for the patient. We will continue to monitor the patient's intake and output and the patient's weight closely. culture, respiratory panel 2. Elevated QT on EKG. The patient's EKG showed sinus rhythm with premature ventricular contraction (PVC) and prolonged QT. Ventricular rate was 69. We will continue to monitor. Repeat EKG in the morning. 3. Mildly elevated white blood cell (WBC) of 10, likely due to COPD exacerbation. We started azithromycin. 4. Chronic anemia workup ordered f/u hh 5. End-stage renal disease on hemodialysis Tuesday, Tuesday and Tuesday and polycystic kidney disease. Continue dialysis per nephrology. 6. Diastolic heart failure. Brain natriuretic peptide (BNP) was severely elevated of 175,000. Nephrology has been consulted for hemodialysis. We will limit the patient's oral intake to 1.5 liters [address] day and place the patient on two-gram low sodium renal diet, COPD diet and low-fat, low-cholesterol diet. 7. Hypertensive heart disease with hypertension. Echocardiogram on 04/28/2017 shows ejection fraction of 70% with anterior left ventricular diastolic function, moderately severe pulmonary hypertension, elevated central venous pressure (CVP). c/w bp meds 8. COPD, bronchitis. The patient still smokes. 9. Chronic back pain. Continue Tylenol. 10. Hypothyroidism. Continue Synthroid. 11. Depression. Continue selective serotonin reuptake inhibitor (SSRI). 12. Polycystic liver disease. International normalized ratio (INR) appears to be within normal range. There is no liver enzyme elevation. 13. Tobacco dependence. Started the patient on a nicotine patch as needed. 14. History of C. difficile. The patient did have one diarrhea prior to admission. If the patient has increased diarrhea, further test, probiotics 15. Deep vein thrombosis (DVT) prophylaxis with weight-based Lovenox. dispo frail, clinical improvement. VS,Fishbone, I+O VS, Fishbone, I+O Laboratory Tests 09/30/17 06:03 Red Blood Count 2.86 L, Mean Corpuscular Volume 100.7 H, Mean Corpuscular Hemoglobin 31.8, Mean Corpuscular Hemoglobin Concent 31.6 L, Red Cell Distribution Width 17.1 H, Neutrophils (%) (Auto) 74.4 H, Lymphocytes (%) (Auto ) 16.7 L, Monocytes (%) (Auto) 7.8 H, Eosinophils (%) (Auto) 0.2, Basophils (%) (Auto) 0.1, Neutrophils # (Auto) 9.1 H, Lymphocytes # (Auto) 2.1, Monocytes # ( Auto) 1.0 H, Eosinophils # (Auto) 0.0, Basophils # (Auto) 0.0, Calcium Level 8.3 L Vital Signs Date Time Temp Pulse Resp B/P (MAP) Pulse Ox O2 Delivery O2 Flow Rate FiO2 09/30/17 12:00 133/63 09/30/17 09:51 19 09/30/17 09:00 Nasal Cannula 2.0 09/30/17 06:00 99.1 63 95 SHYANNE KIMBALL MD Sep 30, 2017 15:22
--- NOTE | 2017-09-30 20:07 | IPN ---
DATE: 09/30/2017 Mrs. Blackmon is seen this morning on her bedside. She is lying in the bed without any acute distress. She was admitted with shortness of breath and was found to have COPD exacerbation and hypervolemia related to end-stage renal disease. She underwent hemodialysis yesterday, which she tolerated very well. She denies any nausea or vomiting. Her dyspnea has moved significantly. She has no fever or chills. She also had uncontrolled hypertension on admission, which has also improved. PHYSICAL EXAMINATION: Temperature 99 degrees Fahrenheit, heart rate 64 per minute and respiratory rate 18 per minute. Blood pressure 157/79 mmHg and oxygen saturation 95% on 2 liters oxygen. Head is atraumatic. Neck is supple and without any thyroid enlargement or jugular venous distention (JVD). Ears, nose and throat are unremarkable. Heart exam reveals regular S1 and S2 with systolic murmur. Lungs: Have diminished breath sounds and scattered rhonchi. Abdomen is soft with large palpable polycystic kidneys. Bowel sounds are present. Extremities: Have no cyanosis or clubbing. Skin has no rash or ulcers. Neurologically she is awake, alert and oriented times three. Today's labs show WBC count 12.2, hemoglobin 9.1 and hematocrit 28.8. Sodium 139 and potassium 3.3. BUN 41 and creatinine 3.89. Calcium level is 8.3. PROBLEMS: 1. Shortness of breath, mostly related to COPD exacerbation and has improved significantly. She also had probably mild hypervolemia related to end-stage renal disease. She underwent hemodialysis yesterday and her volume status seems well compensated now. 2. Uncontrolled hypertension. Blood pressure control has also improved since she was dialyzed yesterday. I suggest to continue with current antihypertensive medications. 3. Anemia. Her anemia is slightly worse and this is related to end-stage renal disease. The patient will be given Aranesp 100 mcg tomorrow with her dialysis treatment. 4. Congestive heart failure. Volume status is now very well compensated and no intervention is indicated. The patient will be dialyzed tomorrow and will try to remove about 1.5 liters of fluid.
[2017-09-30] MEDS: methylPREDNISolone INJ 40 MG/1 ML VIAL (J2920) IV SCH (20:36)
[2017-09-30] MEDS: ESCITALOPRAM OXALATE 10 MG TAB (LEXAPRO) PO SCH (20:40)
[2017-09-30] MEDS: LORazepam 1 MG TAB PO SCH (20:40)
[2017-09-30 22:00] VITALS: BP 134/67
[2017-10-01] MEDS: IPRATROPIUM 0.5MG/ALBUTEROL 2.5MG INH SOL UD 3ML (DUONEB)(J7620) NEB SCH ×4 (00:46→18:48)
[2017-10-01] MEDS: LEVOTHYROXINE 137MCG TABLET (0.137MG) PO SCH (05:56)
[2017-10-01] MEDS: SLF 3 ML SYR IV SCH ×3 (05:56→20:13)
[2017-10-01] MEDS: methylPREDNISolone INJ 40 MG/1 ML VIAL (J2920) IV SCH ×2 (05:56→20:13)
[2017-10-01] MEDS: AZITHROMYCIN 250 MG TAB PO SCH (05:57)
[2017-10-01] MEDS: **hydrALAZINE** 10 MG TAB PO SCH ×4 (05:57→23:59)
[2017-10-01] MEDS: ATENOLOL 50 MG TAB PO SCH ×2 (05:57→20:14)
[2017-10-01] MEDS: SENOKOT S TAB PO SCH ×2 (05:57→20:13)
[2017-10-01] MEDS: MINOXIDIL 2.5 MG TAB PO SCH (05:58)
[2017-10-01] MEDS: ASPIRIN 81 MG ENTERIC TAB PO SCH (05:58)
[2017-10-01] MEDS: LOSARTAN 50 MG TAB PO SCH (05:58)
[2017-10-01] MEDS: ENOXAPARIN 30 MG/0.3 ML SYR (J1650) SC SCH (05:59)
[2017-10-01 06:00] VITALS: BP 155/79
[2017-10-01 06:08] LABS: BASO % 0.1 % (0.0-1.0); LYMPH # 1.4 10^3/uL (1.5-4.5); LYMPH % 12.8 % (24.0-44.0); MEAN CORPUSCULAR HEMOGLOBIN 31.4 pg (27.0-33.0); MEAN CORPUSCULAR HGB CONC 31.3 g/dl (32.0-36.5); MEAN CORPUSCULAR VOLUME 100.3 fl (80.0-96.0); MONO # 0.5 10^3/uL (0.0-0.8); MONO % 4.5 % (0.0-5.0); NEUTROPHILS # 9.2 10^3/uL (1.8-7.7); NEUTROPHILS % 81.6 % (36.0-66.0); PLATELET COUNT, AUTOMATED 237 10^3/uL (150-450); RED CELL DISTRIBUTION WIDTH 16.8 % (11.5-14.5); WHITE BLOOD COUNT 11.2 10^3/uL (4.0-10.0)
[2017-10-01 06:30] LABS: CALCIUM LEVEL 8.3 MG/DL (8.8-10.2); CREATININE FOR GFR 5.09 MG/DL (0.55-1.02); MAGNESIUM LEVEL 1.9 MG/DL (1.8-2.4); POTASSIUM SERUM 3.9 MEQ/L (3.5-5.1)
[2017-10-01] MEDS: SYMBICORT 160/4.5MCG INHALER 6GM INH SCH ×2 (07:29→20:48)
--- NOTE | 2017-10-01 11:15 | IPNPDOC ---
Text Note Date of Service The patient was seen on 10/01/17. NOTE no acute events, minimum cough, . undergoing HD today. denied CP, abd pain, sob GENERAL:frail, nad, aaox3 HEENT: Normocephalic, atraumatic. Extraocular motor intact. Mucous moist. NECK: Supple. N CARDIOVASCULAR: Regular rate and rhythm, normal S1, S2. No murmurs. LUNGS: distant breath sound, no w/r/r ABDOMEN: There were palpable masses in the patient's abdomen likely due to polycystic liver disease. However, it was soft and no peritoneal signs. No ecchymosis. +BS EXTREMITIES: No clubbing, cyanosis, or edema. SKIN: Warm and dry. NEUROLOGIC: Cranial nerves II-XII intact. No focal neurologic deficit. 66-year-old female with multiple comorbidities, most significantly end-stage renal disease, polycystic kidney disease and polycystic liver disease, diastolic heart failure, hypertensive lung disease, hypertension, chronic obstructive pulmonary disease (COPD), chronic back pain, hypothyroidism, depression, tobacco dependence, and history of Clostridium (C) difficile who presented with: sob, cough missing HD 1. Shortness of breath with respiratory distress 2/2 acute chronic obstructive pulmonary disease, bronchitis. with increased sputum production and cough. However, she is in fluid overload from missing her dialysis . Solu-Medrol taper as tolerated, change to prednisone tomorrow azithromycin and DuoNebs and the patient's home inhaler. Nephrology has also been consulted to perform hemodialysis for the patient. We will continue to monitor the patient's intake and output and the patient's weight closely. culture, respiratory panel 2. Elevated QT on EKG. The patient's EKG showed sinus rhythm with premature ventricular contraction (PVC) and prolonged QT. tele appreciated 3. Mildly elevated white blood cell , likely due to COPD exacerbation. azithromycin. 4. Chronic anemia workup ordered Arenesp ordered by Nephrology f/u hh 5. End-stage renal disease on hemodialysis Tuesday, Tuesday and Tuesday and polycystic kidney disease. Continue dialysis per nephrology. 6. Diastolic heart failure. Brain natriuretic peptide (BNP) was severely elevated of 175,000. Nephrology has been consulted for hemodialysis. We will limit the patient's oral intake and place the patient on two-gram low sodium renal diet, COPD diet and low-fat, low-cholesterol diet. 7. Hypertensive heart disease with hypertension. Echocardiogram on 04/28/2017 shows ejection fraction of 70% with anterior left ventricular diastolic function, moderately severe pulmonary hypertension, elevated central venous pressure (CVP). c/w bp meds 8. COPD, bronchitis. The patient still smokes. remberto, lisbeth taper steroid, azithromycin 9. Chronic back pain. Continue Tylenol. 10. Hypothyroidism. Continue Synthroid. 11. Depression. Continue selective serotonin reuptake inhibitor (SSRI). 12. Polycystic liver disease. International normalized ratio (INR) appears to be within normal range. There is no liver enzyme elevation. 13. Tobacco dependence. Started the patient on a nicotine patch as needed. 14. History of C. difficile. The patient did have one diarrhea prior to admission. If the patient has increased diarrhea, further test, probiotics 15. Deep vein thrombosis (DVT) prophylaxis with weight-based Lovenox. dispo frail, clinical improvement. likely dc tuesday, Pending PT VS,Fishbone, I+O VS, Fishbone, I+O Laboratory Tests 10/01/17 05:47 Red Blood Count 3.15 L, Mean Corpuscular Volume 100.3 H, Mean Corpuscular Hemoglobin 31.4, Mean Corpuscular Hemoglobin Concent 31.3 L, Red Cell Distribution Width 16.8 H, Neutrophils (%) (Auto) 81.6 H, Lymphocytes (%) (Auto ) 12.8 L, Monocytes (%) (Auto) 4.5, Eosinophils (%) (Auto) 0.0, Basophils (%) ( Auto) 0.1, Neutrophils # (Auto) 9.2 H, Lymphocytes # (Auto) 1.4 L, Monocytes # ( Auto) 0.5, Eosinophils # (Auto) 0.0, Basophils # (Auto) 0.0, Calcium Level 8.3 L Vital Signs Date Time Temp Pulse Resp B/P (MAP) Pulse Ox O2 Delivery O2 Flow Rate FiO2 10/01/17 09:00 Nasal Cannula 2.0 10/01/17 06:00 99.3 60 18 155/79 (104) 96 SHYANNE KIMBALL MD Oct 01, 2017 11:15
[2017-10-01 14:00] VITALS: BP 146/76
[2017-10-01] MEDS: ACETAMINOPHEN TAB 650MG DOSE (2X325MG) PO PRN (17:52)
[2017-10-01] MEDS: ESCITALOPRAM OXALATE 10 MG TAB (LEXAPRO) PO SCH (20:13)
[2017-10-01] MEDS: LORazepam 1 MG TAB PO SCH (20:13)
[2017-10-01] MEDS: NORCO, ANEXSIA 5/325MG TABLET (HYDROcodone/ACETAMINOPHEN) PO PRN (20:14)
[2017-10-01 22:00] VITALS: BP 117/66
[2017-10-02] MEDS: IPRATROPIUM 0.5MG/ALBUTEROL 2.5MG INH SOL UD 3ML (DUONEB)(J7620) NEB SCH ×2 (01:25→07:36)
--- NOTE | 2017-10-02 03:00 | IPN ---
DATE OF SERVICE: 10/01/2017 SUBJECTIVE: The patient is seen this morning on hemodialysis. She is receiving her maintenance treatment without any issues. She states she feels better as compared to prior and denies any shortness of breath at rest. Reports her oral intake has been improved. REVIEW OF SYSTEMS: Positive for improving shortness of breath and cough. Review of systems is negative for fevers, chills, nausea, vomiting, chest pain, palpitations, diarrhea, edema. Remainder of review of systems is negative. VITAL SIGNS: Temperature 99.3, pulse 60, respiratory rate 18, blood pressure 155/79, saturating 96% on 2 liters nasal cannula. Intake and output: Dialysis today removed 2000 mL ultrafiltration. Weight on the bed scale today is 40.5 kg, essentially unchanged from prior. PHYSICAL EXAMINATION: The patient is seen on hemodialysis. She is cachectic with severe muscle wasting and very frail, appears older than stated age. Head is atraumatic. There is bitemporal wasting. Neck is supple. There is no jugular venous distention. Mucous membranes are moist. Cardiac: S1, S2, 2+ radial pulse, absolutely no edema in the extremities or dependent areas. Lungs: Seen on oxygen, breath sounds are diminished bilaterally. Abdomen is soft, kidneys are palpable, bowel sounds are present. Extremities: Severe muscle wasting, no cyanosis, clubbing or edema. Skin has no rash. Neurologically, she is awake, alert, oriented times three. Appropriately interactive and conversational. Psychiatric: Appropriate mood and affect. LABORATORIES: White count 11.2, hemoglobin 9.9, platelets 237. Sodium 141, potassium 3.9, bicarbonate 25, calcium 8.3, magnesium 1.9. Microbiology: Stool occult blood negative today. INPATIENT MEDICATIONS: Reviewed by myself. The patient continues on oral azithromycin and intravenous (IV) Solu-Medrol taper. There is no other change in the medications. ASSESSMENT AND PLAN: 1. Shortness of breath secondary to chronic obstructive pulmonary disease (COPD) exacerbation in a chronic active smoker who is oxygen dependent at home. The patient continues on IV steroid taper and azithromycin. She clinically now appears fairly euvolemic without any peripheral edema on exam. 2. End-stage renal disease on hemodialysis. The patient's next hemodialysis treatment will be on Tuesday per her maintenance schedule. She is, per her maintenance schedule, likely to be done in the outpatient unit as she is improving nicely. 3. Anemia of chronic kidney disease. The patient's hemoglobin is slightly suboptimal. She continues on Aranesp with dialysis. 4. Hypertensive heart disease. The patient's blood pressure is fairly acceptable at present on the current regimen. DISCHARGE PLANNING: Probable discharge on Tuesday, 10/02, with next outpatient dialysis treatment on Tuesday, 10/03.
[2017-10-02 05:51] LABS: BASO % 0.1 % (0.0-1.0); EOS % 0.1 % (0.0-3.0); IMMATURE GRANULOCYTE % 0.9 % (0-0); LYMPH # 1.8 10^3/uL (1.5-4.5); LYMPH % 16.2 % (24.0-44.0); MEAN CORPUSCULAR HEMOGLOBIN 31.3 pg (27.0-33.0); MEAN CORPUSCULAR HGB CONC 31.1 g/dl (32.0-36.5); MEAN CORPUSCULAR VOLUME 100.6 fl (80.0-96.0); MONO # 0.7 10^3/uL (0.0-0.8); MONO % 6.4 % (0.0-5.0); NEUTROPHILS # 8.4 10^3/uL (1.8-7.7); NEUTROPHILS % 76.3 % (36.0-66.0); PLATELET COUNT, AUTOMATED 207 10^3/uL (150-450); RED CELL DISTRIBUTION WIDTH 16.4 % (11.5-14.5)
[2017-10-02 06:00] VITALS: BP 137/81
[2017-10-02] MEDS: **hydrALAZINE** 10 MG TAB PO SCH ×2 (06:00→12:00)
[2017-10-02] MEDS: SLF 3 ML SYR IV SCH (06:00)
[2017-10-02] MEDS: LEVOTHYROXINE 137MCG TABLET (0.137MG) PO SCH (06:05)
[2017-10-02 06:17] LABS: CALCIUM LEVEL 8.6 MG/DL (8.8-10.2); CREATININE FOR GFR 3.49 MG/DL (0.55-1.02); GLOMERULAR FILTRATION RATE 13.9 (>45); MAGNESIUM LEVEL 1.9 MG/DL (1.8-2.4); POTASSIUM SERUM 3.9 MEQ/L (3.5-5.1)
[2017-10-02] MEDS: MINOXIDIL 2.5 MG TAB PO SCH (07:06)
[2017-10-02] MEDS: SYMBICORT 160/4.5MCG INHALER 6GM INH SCH (07:36)
[2017-10-02] MEDS ORDERED: NICO21PAT TD (08:39)
[2017-10-02] MEDS ORDERED: PRED10TA2 PO (08:39)
[2017-10-02] MEDS ORDERED: AZIT-12 PO (08:39)
[2017-10-02] MEDS: methylPREDNISolone INJ 40 MG/1 ML VIAL (J2920) IV SCH (08:50)
[2017-10-02] MEDS: ATENOLOL 50 MG TAB PO SCH (08:51)
[2017-10-02] MEDS: AZITHROMYCIN 250 MG TAB PO SCH (08:51)
[2017-10-02] MEDS: LOSARTAN 50 MG TAB PO SCH (08:51)
[2017-10-02] MEDS: ASPIRIN 81 MG ENTERIC TAB PO SCH (08:51)
[2017-10-02] MEDS: ENOXAPARIN 30 MG/0.3 ML SYR (J1650) SC SCH (08:52)
[2017-10-02] MEDS: SENOKOT S TAB PO SCH (08:52)
[2017-10-02 12:00] VITALS: BP 138/78
--- NOTE | 2017-10-02 18:44 | IPN ---
DATE: 10/02/2017 SUBJECTIVE: The patient is seen this morning at the bedside. She reports she is feeling well, tolerated hemodialysis yesterday with 2000 mL ultrafiltration removed without any issue. She has discharge pending today. REVIEW OF SYSTEMS: Negative for fevers, chills, chest pain, palpitations, nausea, vomiting, diarrhea, edema. Review of systems is positive for chronic shortness of breath, unchanged from baseline. VITAL SIGNS: Temperature 97.6, pulse 54, respiratory rate 18, blood pressure 137/81, saturating 100% on two liters nasal cannula. INTAKE AND OUTPUT: Hemodialysis yesterday removed 2000 mL ultrafiltration. Weight on the bed scale today is 38.8 kg. PHYSICAL EXAMINATION: The patient is seen laying flat in bed in no acute distress. She is frail, cachectic, and appears older than stated age. Head is atraumatic. There is bitemporal wasting. Neck is supple. There is no jugular venous distention. Mucous membranes are moist. CARDIAC: S1, S2, 2+ radial pulse, absolutely no edema in the extremities or dependent areas. LUNGS: She is seen on oxygen, breath sounds are diminished bilaterally. She is in no respiratory distress. ABDOMEN: Soft. Kidneys and liver are palpable. Bowel sounds are present. EXTREMITIES: Severe muscle wasting. No cyanosis, clubbing, or edema. SKIN: No rash. NEUROLOGIC: She is intact with no deficits, interactive and conversational. PSYCHIATRIC: Appropriate mood and affect. LABORATORY DATA: White count 11, hemoglobin 9.9, platelets 207. Sodium 140, potassium 3.9, bicarbonate 27, calcium 8.6, magnesium 1.9. INPATIENT MEDICATIONS: The patient continues on oral azithromycin and IV Solu-Medrol taper. ASSESSMENT AND PLAN: 1. Shortness of breath, secondary to chronic obstructive pulmonary disease (COPD) exacerbation in a chronic active smoker who is oxygen dependent at home. The patient continues on oral azithromycin and will be discharged to complete a course along with a prednisone oral taper. She is saturating well on two liters nasal cannula which is her home oxygen dosing. 2. End-stage renal disease on hemodialysis. The patient is well-dialyzed. She is euvolemic. She has no signs of any hypervolemia. She will continue with her maintenance schedule as an outpatient with next treatment on Tuesday. 3. Hypertensive heart disease. The patient's blood pressure is well controlled on current regimen. 4. Anemia of chronic kidney disease. The patient's hemoglobin is close to goal and she continues on Aranesp. DISCHARGE PLANNING: The patient is appropriate for discharge today. She is counseled on smoking cessation. She will continue on azithromycin and steroid taper and we will see her on her next outpatient hemodialysis treatment.
--- NOTE | 2017-10-02 21:24 | DSES ---
DATE OF ADMISSION: 09/28/2017 DATE OF DISCHARGE: 10/02/2017 PRIMARY CARE PROVIDER: Sarah Pickard NP PLANT CHANGER: Dr. Mena EXPERIMENTAL FLIGHT TEST MECHANIC: Nic Gutiérrez MD FINAL DIAGNOSES: Shortness of breath and respiratory distress secondary to acute chronic obstructive pulmonary disease (COPD) exacerbation, bronchitis with fluid overload, leukocytosis, chronic anemia, end-stage renal disease, diastolic heart failure, hypertensive heart disease with hypertensive urgency, COPD, chronic back pain, hypothyroidism, depression, polycystic kidney disease and liver disease, smoking, history of Clostridium (C) difficile. HISTORY OF PRESENT ILLNESS: This is a 66-year-old female patient with underlying medical history of chronic anemia, end-stage renal disease, polycystic kidney disease, diastolic heart failure, hypertensive heart disease, hypertension, COPD, smoking, chronic back pain, hypothyroidism, depression, polycystic liver disease, tobacco dependency, history of C. difficile, and also poor compliance, presented with increased shortness of breath, started on Tuesday. As per patient, felt better after dialysis on Tuesday, however it has been getting progressively worse over the course of Tuesday and Tuesday, missing dialysis on Tuesday because she had shortness of breath with increased cough and increased sputum production, however the sputum was clear, and denies any fevers, chills, chest pain, abdominal pain, nausea, vomiting, constipation, dysuria, hematuria. HOSPITAL COURSE: Patient was admitted to the hospital, started on azithromycin and Solu-Medrol, nebulizer treatments. Nephrology was consulted for dialysis. Patient was dialyzed with improvement of symptoms and steroids were progressively tapered. Respiratory panel appreciated to be negative. Cultures were negative. X-rays appreciated. Patient's condition progressively improved and currently patient is tolerating oral, comfortable, in no acute respiratory distress, ready for discharge with further care as outpatient. VITAL SIGNS: Temperature 97.6, pulse 54, respirations 18, blood pressure 137/81, pulse oximetry 100% on 2 liters nasal cannula. GENERAL: Patient alert, comfortable, in no acute distress, frail. HEENT: Normocephalic, atraumatic. PULMONARY: Bilaterally clear to auscultation, distant breath sounds. CARDIAC: Regular rate and rhythm, normal S1, S2. ABDOMEN: Soft with abdominal mass palpated. Nontender. Positive bowel sounds. EXTREMITIES: No clubbing, cyanosis, or edema. LABORATORY DATA: WBC 11, hemoglobin and hematocrit 9.9/31.8, platelets 207. Chemistry: Sodium 140, potassium 3.9, chloride 104, bicarbonate 27, BUN 38, creatinine 3.49. DISCHARGE MEDICATIONS: - azithromycin 500 mg by mouth daily - nicotine patch 21 mg transdermal daily - prednisone taper as ordered 10 mg tablet four tablets daily for 2 days, then three tablets daily for 2 days, then two tablets daily for 2 days, then one tablet daily until sees die maker trim Patient's home medications of: - Ventolin inhaler every 4 hours as needed and albuterol nebulizer every 4 hours as needed were continued - aspirin 81 mg four times a week - atenolol 50 mg by mouth twice a day - Symbicort 160/4.5 inhalation twice a day - Lexapro 30 mg by mouth nightly - Ellipta inhalation daily - Atrovent inhaler four times a day as needed - Synthroid 137 mcg by mouth daily - Ativan 1 mg by mouth nightly, 1 mg by mouth twice a day as needed - losartan 100 mg by mouth daily - minoxidil 2.5 mg by mouth daily DISCHARGE INSTRUCTIONS: Patient is instructed to followup with director industrial nursing and with dialysis, resume Tuesday, Tuesday, Tuesday dialysis schedule, and followup with die maker trim in 10 days. Return to the hospital if symptoms worsen. Abstain from smoking.
== END 2017-10-02 12:44 | disposition home or self-care (01) | DRG 190 ==
LOC: M ED 14:40 → M ED INP 18:26 → M PCU 23:11 → M MSPAV 09-29 21:43
PROVIDERS: ADMIT Internal Medicine; ATTEND Hospitalist
DX: J44.1 Chronic obstructive pulmonary disease with (acute) exacerbation (principal); N18.6 End stage renal disease; I50.32 Chronic diastolic (congestive) heart failure; I13.2 Hypertensive heart and chronic kidney disease with heart failure and with stage 5 chronic kidney disease, or end stage renal disease; Q44.6 Cystic disease of liver; Q61.3 Polycystic kidney, unspecified; E87.70 Fluid overload, unspecified; J44.0 Chronic obstructive pulmonary disease with (acute) lower respiratory infection; E03.9 Hypothyroidism, unspecified; D63.1 Anemia in chronic kidney disease; I16.0 Hypertensive urgency; M54.5 Low back pain; F32.9 Major depressive disorder, single episode, unspecified; F17.200 Nicotine dependence, unspecified, uncomplicated; Z91.19 Patient's noncompliance with other medical treatment and regimen; Z79.82 Long term (current) use of aspirin; Z79.899 Other long term (current) drug therapy; Z88.5 Allergy status to narcotic agent; Z88.8 Allergy status to other drugs, medicaments and biological substances; Z79.52 Long term (current) use of systemic steroids; F41.9 Anxiety disorder, unspecified

== ENCOUNTER 2017-10-23 03:53 | Inpatient (IN) | payer MEDICARE, MEDICAID ==
[~2017-10-23] VITALS: Ht 157.5 cm; Wt 41.6 kg
[~2017-10-23 03:53] MED LIST changes: +NICO21PAT TD
[2017-10-23] MEDS ORDERED: ALBUTEROL SULFATE 2.5 MG/0.5 ML INH NEB SOLN NEB ONE (04:45)
[2017-10-23] MEDS ORDERED: NITROGLYCERIN 2% OINT 1 GM *U/D* PKT As Ordered ONE (06:09)
[2017-10-23] MEDS ORDERED: NITROGLYCERIN 2% OINT 1 GM *U/D* PKT TOP ONE (06:15)
[2017-10-23] MEDS ORDERED: hydrALAZINE INJ 20 MG/ML VIAL IV STA ×3 (06:43→09:02)
[2017-10-23] MEDS ORDERED: dexameTHASONE 20 MG/5 ML VIAL (J1100) IV ONE (06:45)
[2017-10-23 06:56] LABS: BASO # 0.1 10^3/uL (0.0-0.2); BASO % 0.5 % (0.0-1.0); EOS # 0.6 10^3/uL (0.0-0.50); EOS % 2.2 % (0.0-3.0); IMMATURE GRANULOCYTE % 1.6 % (0-0); LYMPH # 4.2 10^3/uL (1.5-4.5); LYMPH % 16.4 % (24.0-44.0); MEAN CORPUSCULAR HGB CONC 30.3 g/dl (32.0-36.5); MEAN CORPUSCULAR VOLUME 108.7 fl (80.0-96.0); MONO # 1.5 10^3/uL (0.0-0.8); MONO % 5.8 % (0.0-5.0); NEUTROPHILS # 18.8 10^3/uL (1.8-7.7); NEUTROPHILS % 73.5 % (36.0-66.0); PLATELET COUNT, AUTOMATED 309 10^3/uL (150-450); RED CELL DISTRIBUTION WIDTH 19.2 % (11.5-14.5); WHITE BLOOD COUNT 25.6 10^3/uL (4.0-10.0)
[2017-10-23] MEDS: ALBUTEROL SULFATE 2.5 MG/0.5 ML INH NEB SOLN INH SCH ×3 (07:06→07:38)
[2017-10-23 07:08] LABS: CALCIUM LEVEL 8.8 MG/DL (8.8-10.2); CREATININE FOR GFR 4.1 MG/DL (0.55-1.02); GLOMERULAR FILTRATION RATE 11.5 (>45); POTASSIUM SERUM 4.1 MEQ/L (3.5-5.1)
[2017-10-23 07:38] LABS: ABG BASE EXCESS -7.9 (-2.0-2.0); ABG HCO3 21.4 MEQ/L (22.0-26.0); ABG STANDARD HCO3 18.1 MEQ/L (22.0-26.0); ABG TOTAL CO2 23.3 MEQ/L (23.0-31.0)
[2017-10-23 07:41] LABS: ABG PARTIAL PRESSURE CO2 61.8 mmHg (35.0-45.0); ABG pH (ARTERIAL) 7.157 UNITS (7.350-7.450)
--- NOTE | 2017-10-23 08:24 | REP ---
Chest one-view HISTORY: Dyspnea Comparison: 09/28/2017 Patchy density is present in the lower lobes and right upper lobe consistent with bilateral infiltrates. There are small l bilateral pleural effusions. The heart is normal in size. The pulmonary vasculature is normal in appearance. Impression: 1. Bilateral lower lobe and right upper lobe infiltrates. 2. Small bilateral pleural effusions. Signed by Omar Steele MD 10/23/2017 08:16 A
[2017-10-23] MEDS ORDERED: VANCOMYCIN HCL 1,000 MG, VIAL MATE ADAPTER 1 EACH in D5W 250 ML IV SCH (09:00)
[2017-10-23] MEDS ORDERED: ENOXAPARIN 40 MG/0.4 ML SYRINGE (J1650) SC SCH (09:00)
[2017-10-23] MEDS: SYMBICORT 160/4.5MCG INHALER 6GM INH SCH ×2 (09:00→21:00)
[2017-10-23] MEDS ORDERED: LABETALOL HCL 100 MG/20 ML VIAL IV STA (09:01)
[2017-10-23] MEDS ORDERED: methylPREDNISolone INJ 125 MG/2 ML VIAL (J2930) IV ONE (09:15)
[2017-10-23] MEDS ORDERED: IPRATROPIUM 0.5MG/ALBUTEROL 2.5MG INH SOL UD 3ML (DUONEB)(J7620) NEB PRN (09:15)
[2017-10-23 09:24] LABS: ABG BASE EXCESS -2.9 (-2.0-2.0); ABG HCO3 23.6 MEQ/L (22.0-26.0); ABG PARTIAL PRESSURE CO2 47.9 mmHg (35.0-45.0); ABG PARTIAL PRESSURE O2 130.9 mmHg (75.0-100.0); ABG STANDARD HCO3 22.1 MEQ/L (22.0-26.0)
[2017-10-23] MEDS ORDERED: VANCOMYCIN HCL 1,000 MG, VIAL MATE ADAPTER 1 EACH in D5W 250 ML IV ONE (10:00)
--- NOTE | 2017-10-23 10:39 | HPE ---
DATE OF ADMISSION: 10/23/2017 Primary care physician is Lupe Alcazar. Boilermaking Supervisor is Dr. Mena. CHIEF COMPLAINT: Shortness of breath. HISTORY OF PRESENTING ILLNESS: 66-year-old female with history significant for end-stage renal disease with polycystic kidney disease on hemodialysis, chronic anemia, diastolic congestive heart failure, hypertensive lung disease, hypertension, chronic obstructive pulmonary disease (COPD), chronic back pain, hypothyroidism, depression, polycystic liver disease, tobacco abuse, history of Clostridium (C) difficile, presented with worsening shortness of breath, unable to provide a full history due to severe respiratory distress. Patient usually has maintenance dialysis Tuesday, Tuesday, Tuesday. She denies any fever or chills. Complains of some chest pain and severe shortness of breath, unable to provide any further history. ALLERGIES to CODEINE and LISINOPRIL with angioedema with lisinopril. HOME MEDICATIONS: - Activella one tablet daily - Ventolin two puffs as needed - albuterol 2.5 mg every 4 as needed - aspirin 81 daily Tuesday, Tuesday, , Tuesday, Tuesday - atenolol 50 twice a day - Symbicort two puffs inhaled twice a day - Lexapro 30 mg nightly - Incruse Ellipta one puff inhaled daily - Atrovent two puffs as needed - Synthroid 137 mcg daily - Ativan 1 mg nightly and twice a day as needed - losartan 100 daily - minoxidil 2.5 mg daily - prednisone 10 mg daily PAST MEDICAL HISTORY: 1. Polycystic kidney and polycystic liver disease with end-stage renal disease on hemodialysis on Tuesday, Tuesday, Tuesday. 2. Diastolic heart failure with preserved ejection fraction. 3. Hypertensive heart disease. 4. Hypertensive lung disease. 5. Hypertension. 6. COPD. 7. Chronic back pain. 8. Hypothyroidism. 9. Depression. 10. Tobacco dependence. 11. History of C difficile. PAST SURGICAL HISTORY: 1. Right femur repair. 2. Arteriovenous (AV) fistula placement. SOCIAL HISTORY: Retired. Smokes a pack for 30 years. Denies alcohol or recreational drug use. FAMILY HISTORY: Denies. REVIEW OF SYSTEMS: Could not be obtained as patient is severely hypoxic. PHYSICAL EXAMINATION: VITAL SIGNS: Temperature 98.2, pulse 76, respiratory rate 28, blood pressure is 204/91, 90% on FiO2 of 30%. GENERAL: Patient in severe distress, unable to speak, positive use of respiratory accessory muscles, is tachypneic, tachycardic, unable to provide the history, severe conversational dyspnea, unable to speak in full sentences with two word dyspnea. Patient appears cachectic, appears older than her stated age, in severe distress. Positive jugular venous distention. No thyromegaly. LUNGS: Rales bilaterally. Diminished air entry. HEART: S1, S2. Sinus rhythm. ABDOMEN: Is soft, nontender. Positive distention. EXTREMITIES: No cyanosis, clubbing or pitting edema. LABORATORY DATA: White count 25.6, hemoglobin 12, hematocrit 39, platelet count 309, 73% neutrophils. Sodium 142, potassium 4.1, chloride 105, bicarbonate 29, BUN 33, creatinine 4.0, glucose 110. Troponin 0.04. Arterial blood gas pH of 7.157, CO2 61, O2 of 134. Chest x-ray: Bilateral lower lobe, right upper lobe infiltrates, small bilateral effusions. ASSESSMENT AND PLAN: This is a 66-year-old female with history of end-stage renal disease on maintenance dialysis Tuesday, Tuesday, Tuesday, polycystic kidney disease and polycystic liver disease, chronic obstructive pulmonary disease, chronic active smoker, chronic back pain due to stress fractures, hypothyroidism, depression, hypertension, right humeral head and neck fracture, right femoral surgery in the past and left forearm arteriovenous fistula placement, ALLERGIC to LISINOPRIL and CODEINE, presents to the emergency room with acute onset of worsening shortness of breath, unable to provide history due to severe respiratory distress, currently on bilevel positive airway pressure (BiPAP). Hospitalist service was called to admit. CURRENT ACTIVE ISSUES ARE FOLLOWS: 1. Acute respiratory acidosis with hypercarbia. Chest x-ray shows bilateral infiltrates most likely secondary to fluid overload requiring emergent hemodialysis. Shortness of breath to be evaluated by labeler, Dr. Orr and milling supervisor, Dr. Fidencio Mena, both of whom have been consulted. Patient is currently on BiPAP. Will recheck a repeat blood gas. Defer to Dr. Orr regarding intubation versus continuation of BiPAP therapy. Patient will need emergent hemodialysis for bilateral infiltrates noted. She denies any fevers but with significantly elevated white count. Therefore, we will empirically provide with intravenous vancomycin and Zosyn for broad-spectrum gram-positive and gram-negative anaerobic coverage. Once medically stable, obtain a sputum culture, MRSA screen and respiratory panel. Patient does have a prior history of COPD and will give one dose of Solu-Medrol [address] Orr if continued Solu-Medrol is required. Continue nebulizer treatments and supplemental oxygen. 2. Hypertensive urgency. Patient will be given IV hydralazine, nitroglycerin topical ointment for systolic pressure goal less than 130. Will continue with intravenous labetalol for now, IV hydralazine every 4 hours. Since the patient has respiratory distress, unable to give oral medication. Cycle cardiac markers every 4 hours. 3. Diastolic congestive heart failure (CHF). Diuresis to be provided via hemodialysis, Dr. Fidencio Mena, milling supervisor has been consulted. Strict intakes and outputs, daily weights and fluid restriction. 4. End-stage renal disease with fluid overload. Maintenance hemodialysis Tuesday, Tuesday, Tuesday. Due to polycystic kidney disease, nephrology to manage patient's volume status. 5. Systemic inflammatory response, elevated white count, hypoxia and hypercarbia. Check lactic acid for supportive care. No IV fluids due to fluid overload and CHF. 6. Chronic anemia. No acute indication for red blood cell (RBC) transfusion. 7. Chronic obstructive pulmonary disease. Trial of steroids, antibiotics, nebulizer treatments. 8. Hypertensive lung disease. Echo ejection fraction (EF) of 70%, left ventricular diastolic dysfunction, moderately severe pulmonary hypertension and elevated CVP. 9. Depression. Resume selective serotonin reuptake inhibitor (SSRI) in the morning if stable. 10. Hypothyroidism. Change oral to IV Synthroid. 11. Chronic back pain. As needed Tylenol. 12. Polycystic liver disease. Check international normalized ratio (INR) and liver function tests in the morning. 13. Tobacco dependence. Nicotine patch as needed. 14. History of Clostridium difficile in the past. Monitor for bowel movements.
[2017-10-23] MEDS: IPRATROPIUM 0.5MG/ALBUTEROL 2.5MG INH SOL UD 3ML (DUONEB)(J7620) NEB SCH ×4 (11:32→23:00)
[2017-10-23] MEDS: NITROGLYCERIN 2% OINT 1 GM *U/D* PKT TOP SCH ×4 (11:55→21:22)
[2017-10-23] MEDS: LOSARTAN 50 MG TAB PO SCH (11:55)
[2017-10-23] MEDS: ASPIRIN 81 MG ENTERIC TAB PO SCH (11:56)
[2017-10-23 13:00] VITALS: BP 167/105
--- NOTE | 2017-10-23 13:05 | CCN ---
DATE: 10/23/2017 START TIME: 1030 hours STOP TIME: 1104 hours I attended Karina Blackmon here in the intensive care unit. The patient has been examined, chart reviewed. I have spoken at length with Dr. Mena from nephrology, as well as the nurse at the bedside, patient and her daughter. The patient is a 66-year-old female with known essentially end-stage obstructive lung disease and continued tobacco abuse. She has been longstanding dialysis dependent. Her history is such that she has marginal to no reserve and frequently has decompensations from hypertension and pulmonary edema in between dialysis runs. This morning, she presented acutely short of breath, was found to be profoundly hypertensive with blood pressures 227/128. She was found to be profoundly acidotic with a pH of 7.157, pCO2 of 61.8, and a pO2 of 134. She was given antihypertensives in the emergency room (ER), as well as placed on noninvasive positive pressure ventilation. Repeat blood gas shows a pH of 7.310, pCO2 of 47.9 and a pO2 of 130.9. Chest x-ray shows cardiomegaly, diffuse edema. I cannot rule out an early infiltrate. She is currently on dialysis. There is a goal of 2-1/2 liters of removal if she will tolerate it. Currently, blood pressure remains 200 to 204 systolic. She states she is short of breath but is able to be more conversant than she was by reports in the ER. She is unwilling to even discuss smoking cessation at this point. The remainder of her laboratory shows white cell count 25.6, hemoglobin 12.1, platelet count 309,000. Sodium 142, potassium of 4.1, chloride 105, CO2 29, BUN 33, creatinine 4.1. Troponin 0.04. On exam, heart rate about 110. Blood pressure as outlined above. Respiratory rate 24 to 26 with borderline accessory muscle use. Noninvasive mask in place. She is moving reasonable tidal volumes. Pupils do react. Sclerae clear. Chest shows markedly diminished but symmetric expansion. There are some dependent crackles. No convincing rhonchus. There may be an end expiratory wheeze with forced maneuver. Cardiac Exam: Distant, tachycardic. Peripheral pulses are diminished. Her fistula is in the left forearm and currently is being accessed for dialysis. Abdomen is thin, soft, with active bowel sounds. No obvious organomegaly or masses. Extremities: Show no cyanosis or clubbing. Neurologically, she is awake, alert and able to answer questions appropriately. The most pressing problems requiring my presence at the bedside: 1. Acute and chronic respiratory failure, both hypoxemic and hypercapnic. 2. Metabolic acidosis, multifactorial. 3. Chronic renal failure, on dialysis. 4. Pulmonary edema. 5. Hypertension. 6. Advanced/endstage obstructive lung disease. 7. Continued tobacco abuse. At this point, she is on dialysis with a goal of not only fluid removal but nephrology is aggressively controlling her blood pressure. We will continue to support her noninvasive support as need be as until the other parameters outlined above can be addressed, her chances of staying off of additional support are, in my opinion, nonexistant. I discussed with her daughter again her status. Again, she is not even willing to discuss smoking cessation. She remains a FULL CODE at this point. Will proceed as outlined above. Nebulizer treatments have been ordered. I spoke with Dr. Mireles, who is the attending physician. She is on empiric antimicrobials in view of her white count and her x-ray findings and this is not at all inappropriate. Should this clear rapidly, it is my suspicion this is all fluid related, then we can discontinue her antibiotics. Will proceed as outlined above. Her prognosis in the long-term is poor. There is a high likelihood of decompensation and need for mechanical ventilatory support in the form of invasive ventilation. We await the outcome of the above interventions. I left the bedside at 11:04 hours. 34 minutes of critical care time at the bedside, not including procedures.
[2017-10-23] MEDS: PIPERACILLIN/TAZOBACTAM SOD 2.25 GM in APPROPRIATE DILUENT 1 EA IV SCH ×2 (13:08→17:55)
[2017-10-23] MEDS: ATENOLOL 50 MG TAB PO SCH ×2 (13:08→21:21)
[2017-10-23] MEDS: NICOTINE 7 MG/24 HR TRANSDERMAL TD SCH (14:06)
[2017-10-23] MEDS: hydrALAZINE INJ 20 MG/ML VIAL IV SCH ×3 (14:07→21:21)
[2017-10-23] MEDS: MINOXIDIL 2.5 MG TAB PO SCH (14:07)
[2017-10-23 15:04] LABS: ABG BASE EXCESS -0.7 (-2.0-2.0); ABG HCO3 22.6 MEQ/L (22.0-26.0); ABG PARTIAL PRESSURE O2 112.1 mmHg (75.0-100.0); ABG STANDARD HCO3 23.9 MEQ/L (22.0-26.0); ABG TOTAL CO2 23.6 MEQ/L (23.0-31.0); ABG pH (ARTERIAL) 7.454 UNITS (7.350-7.450)
[2017-10-23 16:00] VITALS: BP 161/87
[2017-10-23] MEDS ORDERED: CHECK TO SEE IF PATIENT IS RECEIVING DIALYSIS TODAY AND REFER TO THE VANCOMYCIN ORDER XX SCH (16:00)
[2017-10-23] MEDS ORDERED: VANCOMYCIN HCL 750 MG, VIAL MATE ADAPTER 1 EACH in D5W 250 ML IV SCH (16:00)
[2017-10-23] MEDS: ACETAMINOPHEN TAB 650MG DOSE (2X325MG) PO PRN (16:13)
--- NOTE | 2017-10-23 18:03 | ECGEPIP ---
Stationary ECG Study [facility] - ED Test Date: 2017-10-23 Pat Name: CHIQUITA FELIPE Department: Room: - Gender: F Comic Writer: rn : 1950 Requested By: KAILA VALLADARES Order Number: [id number] Reading MD: Julio Grace Measurements Intervals [place] Rate: 76 P: 70 OK: 146 QRS: -14 QRSD: 90 T: 58 QT: 415 QTc: 467 Interpretive Statements SINUS RHYTHM WITH OCCASIONAL VENTRICULAR PREMATURE COMPLEXES INCOMPLETE RIGHT BUNDLE BRANCH BLOCK SIMILAR TO 09/26/17 Electronically Signed On 10-23-2017 18:03:33 EST by Julio Grace
[2017-10-23 19:50] VITALS: O2SAT 99
[2017-10-23 20:00] VITALS: BP 160/86
[2017-10-23] MEDS ORDERED: LORazepam 1 MG TAB PO PRN (20:00)
[2017-10-23] MEDS: LORazepam 1 MG TAB PO SCH (21:20)
[2017-10-23] MEDS: ESCITALOPRAM OXALATE 10 MG TAB (LEXAPRO) PO SCH (21:20)
[2017-10-24] VITALS (9 sets, daily range): BP systolic 134–186; BP diastolic 63–93
[2017-10-24] MEDS: PIPERACILLIN/TAZOBACTAM SOD 2.25 GM in APPROPRIATE DILUENT 1 EA IV SCH ×2 (00:25→06:08)
[2017-10-24] MEDS: hydrALAZINE INJ 20 MG/ML VIAL IV SCH ×2 (00:25→04:15)
[2017-10-24] MEDS: NITROGLYCERIN 2% OINT 1 GM *U/D* PKT TOP SCH ×6 (01:15→21:08)
[2017-10-24] MEDS: IPRATROPIUM 0.5MG/ALBUTEROL 2.5MG INH SOL UD 3ML (DUONEB)(J7620) NEB SCH ×5 (02:43→19:43)
[2017-10-24] MEDS: ACETAMINOPHEN TAB 650MG DOSE (2X325MG) PO PRN ×2 (04:17→13:37)
[2017-10-24 04:23] LABS: MEAN CORPUSCULAR HEMOGLOBIN 33.1 pg (27.0-33.0); MEAN CORPUSCULAR HGB CONC 32.3 g/dl (32.0-36.5); MEAN CORPUSCULAR VOLUME 102.6 fl (80.0-96.0); RED CELL DISTRIBUTION WIDTH 19.3 % (11.5-14.5); WHITE BLOOD COUNT 11.7 10^3/uL (4.0-10.0)
[2017-10-24 04:28] LABS: PLATELET COUNT, AUTOMATED 172 10^3/uL (150-450)
[2017-10-24 04:42] LABS: CREATININE FOR GFR 3.42 MG/DL (0.55-1.02); GLOMERULAR FILTRATION RATE 14.2 (>45); POTASSIUM SERUM 4.6 MEQ/L (3.5-5.1)
[2017-10-24] MEDS: LEVOTHYROXINE 137MCG TABLET (0.137MG) PO SCH (06:07)
--- NOTE | 2017-10-24 06:55 | ECHO ---
DATE OF PROCEDURE: 10/23/2017 AGE: 66 GENDER: Female. HEIGHT: 62 inches. WEIGHT: 96 pounds, body surface area 1.4 meters squared. Inpatient ICU, room 3201. REFERRING PHYSICIAN: Lulu Mireles MD INDICATION: Dyspnea. MEASUREMENTS 2-D MEASUREMENTS: RV - 4.9 cm LV - 3.9 cm Septum - 1.1 cm Posterior wall - 1.1 cm LVEF 55% DOPPLER MEASUREMENTS: AV - 1.3 m/s LVOT - 1.1 m/s MV-E 69, A 98, E/E ratio 0.7 Early mitral deceleration time 261 ms E prime 4.6, A prime 6, E/E prime ratio 15 PV - 1.1 m/s Pulmonary artery acceleration time 77 ms RVSP 63-68 mmHg IVC - 1.8 cm COMMENTS: Normal sinus rhythm without intraventricular conduction disturbance. Left atrial size upper limits of normal with normal left ventricular size. Right heart chambers were at least moderately dilated. LV wall thickness was upper limits of normal. On real-time imaging from the parasternal and projections there appeared to be a septal wall motion abnormality believed to be due to right ventricular pressure overload, but other left ventricular carbajal move normally. Normal appearing mitral valvular apparatus and leaflet excursion with no posterior systolic buckling, with slightly thickened cusp edges, but adequate cusp separation. Normal aortic root size. No apparent intracardiac mass or pericardial effusion. Color flow Doppler study taken from the parasternal and projection showed mild aortic, very mild mitral and moderately severe tricuspid insufficiency. Guided continuous wave Doppler of her aortic valve showed a normal peak systolic velocity against LV outflow tract obstruction. Pulsed and continuous wave Doppler of her LV inflow tract taken to the apical four-chamber projection showed normal diastolic filling velocities against mitral stenosis. There was more prominently diastolic/atrial dependent filling pattern. Diastolic dysfunction was further confirmed by a prolonged early mitral deceleration time and tissue Doppler of her mitral annulus. Her current estimated mean left atrial pressure was at least mildly increased. Pulsed and continuous wave Doppler of her pulmonary trunk showed a normal peak systolic velocity against RV outflow tract obstruction. Her pulmonary artery acceleration time was abbreviated consistent with an elevated pulmonary vascular resistance. Guided continuous wave Doppler of her tricuspid valve allowed our estimation of her right ventricular systolic pressure (severely increased). Her inferior vena cava was of normal size with reduced respiratory collapse suggestive of slightly elevated central venous pressure. CONCLUSIONS: Normal left ventricular size, wall thickness and localized septal wall motion abnormality believed to be due to right ventricular pressure overload. Global left ventricular systolic function appeared to be preserved or minimally impaired. Borderline left atrial size with Doppler evidence of an impairment of LV diastolic function and mildly elevated mean left atrial pressure. Moderately dilated right heart chambers with reduced wall motion and Doppler evidence of severe pulmonary hypertension. Normal IVC size with reduced respiratory collapse suggestive of a slightly elevated central venous pressure. Mild aortic valvular sclerosis without stenosis, but mild insufficiency. Comparing today's study with that of April 28, 2017, global left ventricular systolic function appears to be slightly less, but again the main feature is her severe pulmonary hypertension.
--- NOTE | 2017-10-24 07:02 | CR ---
DATE OF CONSULTATION: 10/23/2017 REQUESTING PHYSICIAN: Dr. Lulu Mireles REASON FOR CONSULTATION: Management of end-stage renal disease on hemodialysis presenting with shortness of breath. CHIEF COMPLAINT: Shortness of breath. HISTORY OF PRESENT ILLNESS: The history is obtained from chart review. The patient is currently unable to provide history secondary to clinical condition. Ms. Karina Blackmon is a 66-year-old female with a past medical history significant of polycystic kidney disease with end-stage renal disease requiring hemodialysis via left upper extremity arteriovenous (AV) fistula o a Tuesday, Tuesday, Tuesday maintenance schedule, history of diastolic congestive heart failure, hypertension, chronic pulmonary obstructive disease (COPD) chronic active smoker, history of hypothyroidism, and depression. The patient's last dialysis treatment was on Tuesday. She presented to the emergency room this morning with severe shortness of breath unable to provide history due to her severe respiratory distress. She was placed on BiPAP and transferred to the intensive care unit and further hemodialysis was arranged. PAST MEDICAL HISTORY: 1. Polycystic kidney and polycystic liver disease with end-stage renal disease on hemodialysis via left upper extremity fistula on Tuesday, Tuesday, Tuesday. 2. Heart failure with preserved ejection fraction. 3. Hypertensive heart disease. 4. Hypertension. 5. Chronic active smoker with COPD. 6. Hypothyroidism. 7. Depression. HOME MEDICATIONS: - Activella one tablet by mouth daily - albuterol inhaler - aspirin 81 mg four days a week - atenolol 50 mg by mouth twice a day - Symbicort two puffs inhaled twice a day - Lexapro 30 mg by mouth at bedtime - Incruse Ellipta one puff inhaled daily - Atrovent two puffs as needed - Synthroid 137 mcg by mouth daily - Lorazepam 1 mg by mouth twice a day as needed - Losartan 100 mg by mouth daily - Minoxidil 2.5 mg by mouth daily ALLERGIES: CODEINE, LISINOPRIL. SOCIAL HISTORY: The patient is retired. She is a chronic active smoker for the past 30 years. She denies alcohol or drug use. PAST SURGICAL HISTORY: 1. Left upper extremity AV fistula. 2. Right femur repair. FAMILY HISTORY: Significant for a daughter also on hemodialysis. REVIEW OF SYSTEMS: Unable to obtain secondary to clinical condition. PHYSICAL EXAMINATION: Vital signs: Temperature 97.0, pulse 75, respiratory rate 22-25 breaths per minute. Blood pressure systolic 167-198, diastolic 85-105, saturating 99% on BiPAP. General: The patient is seen in the intensive care unit with family present at the bedside. She is currently on BiPAP and in no acute distress. She is cachectic, frail, appears significantly older than her stated age. Lungs: Tachypneic. Respiratory rate 20-25 breaths per minute. Coarse air entry bilaterally, diminished at the base. Cardiac: S1, S2, recovery room, 2+ radial pulse. No edema in the lower extremities or in the dependent areas. Abdomen: Soft, distended and significantly enlarged. Her polycystic kidneys are palpable bilaterally. There is no appreciable ascites. Musculoskeletal: There is no clubbing or cyanosis. There is significant decreased lean body mass with muscle wasting. Skin: There is no rashes or ulcers. Extremities: There is a fistula in the left upper extremity with thrill and bruit. There is no edema in the peripheries. LABORATORY DATA: White count 25, hemoglobin 12, platelets 309. Sodium 142, potassium 4.1, bicarbonate 29, glucose 110, calcium 8.8, troponin 0.04, lactic acid 0.9. Initial Arterial blood gas (ABG) showed pH 7.15 with PCO2 61 and PO2 of 134. Repeat ABG at 9 a.m. showed pH 7.3 with PCO2 of 47 and PO2 130 likely performed on BiPAP. IMAGING: Chest x-ray 10/23 shows bilateral lower lobe and right upper lobe infiltrate and small bilateral pleural effusions. INPATIENT MEDICATIONS: The patient was started on - Zosyn 2.25 intravenous (IV) every 6 - vancomycin 750 IV with hemodialysis - Tylenol as needed - DuoNebs around the clock every four hours - aspirin 81 mg three days a week - atenolol 50 mg by mouth twice a day - Symbicort two puffs inhaled twice a day - Decadron 20 mg IV once - Lexapro 20 mg by mouth at bedtime - hydralazine 10 mg IV every 4 - Synthroid 137 mcg by mouth daily - Losartan 100 mg by mouth daily - Solu-Medrol 125 mg IV times one - Minoxidil 2.5 mg by mouth daily - Nicoderm transdermal patch - nitroglycerin topical ointment ASSESSMENT AND PLAN: This is a 66-year-old female with a past medical history of end-stage renal disease on dialysis, polycystic kidney and polycystic liver disease, chronic pulmonary obstructive disease (COPD) and chronic active smoker who presented to the emergency room with acute hypercapnic respiratory failure and volume overload. 1. Acute hypercapnic respiratory failure and volume overload. I was called to emergently dialyze the patient this morning. The patient is currently on BiPAP and admitted to the intensive care unit (ICU). The on-call dialysis nurse was notified and emergent hemodialysis was provided with 2 kg ultrafiltration over two and one-half hours of dialysis. There is also likely an element of chronic pulmonary obstructive disease (COPD) exacerbation and the patient is receiving IV steroids for the same. She also has a significant leukocytosis and is started on empiric antibiotics as well. Give her endstage renal disease and concurrent COPD she is prone to respiratory distress and has had chronic admissions for the same. A repeat blood gas did show improvement in her PCO2. She will likely need a second dialysis session tomorrow, October 24 in view of her current respiratory failure and also to keep her on her maintenance dialysis schedule. 2. Hypertensive urgency. The patient's blood pressure showed improvement with ultrafiltration on hemodialysis. Her systolic should be corrected by 25% at the present time. She is currently started on atenolol, hydralazine, Losartan, and Minoxidil. 3. Heart failure with preserved ejection fraction. Volume status is regulated through hemodialysis, 2 kg ultrafiltration with hemodialysis emergently today and likely serial hemodialysis again tomorrow, October 24. 4. Chronic pulmonary obstructive disease. Chronic active smoker. The patient is started on IV steroids and nebulizer treatment. Given her chronic active smoking and COPD she has had recurrent admissions for hypoxia and her long-term prognosis is poor. 5. Leukocytosis and chest x-ray with infiltrates. The infiltrates may be related to pulmonary edema and may improve with hemodialysis and volume correction; however, at this time she is also understandably started on empiric antimicrobial with Zosyn and vancomycin renally dosed. Should her shortness of breath improve with correction of her volume status, then her antimicrobials can likely be discontinued. Thank you for involving me in the care of this patient. I will be happy to follow the patient along with you. cc: Lulu Mireles MD
[2017-10-24] MEDS: SYMBICORT 160/4.5MCG INHALER 6GM INH SCH (07:42)
[2017-10-24] MEDS: TIOTROPIUM INHALER/CAPSULE (SPIRIVA) INH SCH (08:00)
--- NOTE | 2017-10-24 08:09 | IPNPDOC ---
Date Seen The patient was seen on 10/24/17. Progress Note SUBJECTIVE: Patient is a 66-year-old female with acute respiratory acidosis with hypercarbia. Patient is evaluated at bedside this morning. She says her breathing has improved. Denies shortness of breath or difficulty breathing. Further denies chest pain or productive cough. Admits to headache that she relates to dialysis. OBJECTIVE PHYSICAL EXAMINATION: VITAL SIGNS: Please see below. GENERAL: Frail female, appears older than stated age, no acute distress HEENT: Atraumatic, normocephalic, PERRL, EOMI, oral mucosa appears pink and moist, nasal septum appears midline, nares with nasal cannula in place CARDIOVASCULAR: Regular rate and rhythm, normal S1 and S2, no murmur, rub, click RESPIRATORY: Diminished airway excursion, rales bilaterally ABDOMINAL: Bowel sounds diminished, non-tender, somewhat rounded, abdomen feels nodular and full, liver is prominently palpated EXTREMITIES: Frail, skin is dry, radial and posterior pulses are equal and symmetrical, +2, no peripheral edema NEUROLOGICAL: CN II-XII grossly intact PSYCHOLOGICAL: Alert and conversant LABORATORY DATA: Please see below. MICROBIOLOGY: Please see below. IMAGING: Chest x-ray, one view IMPRESSION: 1. Bilateral lower lobe and right upper lobe infiltrates. 2. Small bilateral pleural effusions. DVT prophylaxis ordered?: TEDs and sequentials ASSESSMENT AND PLAN: This is a 66-year-old female with acute respiratory acidosis with hypercarbia. PROBLEMS: 1. Acute respiratory acidosis with hypercarbia: Repeat chest x-ray pending. Breathing has improved. No longer required BiPAP overnight. Saturating at 96% on 3L nasal cannula. Leukocytosis greatly improved. Discontinued antibiotics. Obtaining sputum culture, MRSA screen, and respiratory panel. Continue with Duonebs, Symbicort, and supplemental oxygen. Pulmonology consulted and recommended starting patient on Spiriva, which has been done. 2. Hypertensive urgency: Blood pressure improved. Remains on Atenolol, Cozaar , and Hydralazine. Cardiac markers have been stable. 3. Diastolic congestive heart failure (CHF): Receiving hemodialysis. Continue to appreciate the assistance from nephrology. Strict I/Os, daily weights, and fluid restriction. 4. End-stage renal disease with fluid overload: Hemodialysis MWF. Nephrology has been consulted. 5. Chronic anemia: No active signs of bleeding. 6. Chronic obstructive pulmonary disease: Discontinued antibiotics. Leukocytosis improved. Continue with Duonebs and Symbicort. 7. Hypertensive lung disease: Echo ejection fraction (EF) of 70%, left ventricular diastolic dysfunction, moderately severe pulmonary hypertension and elevated CVP. 8. Depression: Continue with Lexapro and Ativan. 9. Hypothyroidism: Check TSH. Continue with Synthroid. 10. Chronic back pain: Continue with Tylenol. 11. Polycystic liver disease: INR and LFTs are pending. 12. Tobacco dependence: Nicotine patch as needed. 13. History of Clostridium difficile: Monitor bowel movements. Continue with Bacid. DISPOSITION: Clinically improved. Leukocytosis improved so discontinued antibiotics. Transfer to medical-surgical unit. [facility] Vital Signs Date Time Temp Pulse Resp B/P (MAP) Pulse Ox O2 Delivery O2 Flow Rate FiO2 10/24/17 05:58 148/75 10/24/17 04:00 Nasal Cannula 3.0 10/24/17 04:00 100.0 67 25 96 10/23/17 16:00 30 I&O- Last 24 Hours up to 6 AM 10/25/17 05:59 Intake Total 60 ml Output Total 0 ml Balance 60 ml Laboratory Data 24H LABS Laboratory Tests 2 10/23/17 09:08: Blood Gas Bicarbonate Standard 22.1, Arterial Blood pH 7.310L, Arterial Blood Partial Pressure CO2 47.9H, Arterial Blood Partial Pressure O2 130.9H, Arterial Blood Total CO2 25.0, Arterial Blood HCO3 23.6, Arterial Blood Base Excess -2.9L , Arterial Blood Oxygen Saturation 99.1H 10/23/17 12:49: Lactic Acid Level 0.9, Total Creatine Kinase 65, Creatine Kinase MB 7.6H, Creatine Kinase MB Relative Index 11.69H, Troponin I 0.05# 10/23/17 14:57: Blood Gas Bicarbonate Standard 23.9, Arterial Blood pH 7.454H, Arterial Blood Partial Pressure CO2 33.0L, Arterial Blood Partial Pressure O2 112.1H, Arterial Blood Total CO2 23.6, Arterial Blood HCO3 22.6, Arterial Blood Base Excess -0.7 , Arterial Blood Oxygen Saturation 98.9 10/23/17 18:22: Total Creatine Kinase 45, Creatine Kinase MB 5.2H, Creatine Kinase MB Relative Index 11.55H, Troponin I 0.08# 10/23/17 23:58: Total Creatine Kinase 36, Creatine Kinase MB 3.8H, Creatine Kinase MB Relative Index 10.55H, Troponin I 0.06# 10/24/17 04:07: Nucleated Red Blood Cells % (auto) 0.0, Anion Gap 11, Glomerular Filtration Rate 14.2L, Blood Urea Nitrogen 38H, Creatinine 3.42H, Sodium Level 139, Potassium Level 4.6, Chloride Level 101, Carbon Dioxide Level 27, Calcium Level 9.0 CBC/BMP Laboratory Tests 10/24/17 04:07 Red Blood Count 3.08 L, Mean Corpuscular Volume 102.6 H, Mean Corpuscular Hemoglobin 33.1 H, Mean Corpuscular Hemoglobin Concent 32.3, Red Cell Distribution Width 19.3 H, Calcium Level 9.0 LYNN SALAZAR DO Oct 24, 2017 08:09
[2017-10-24] MEDS: ATENOLOL 50 MG TAB PO SCH ×2 (08:12→21:00)
[2017-10-24] MEDS: NICOTINE 7 MG/24 HR TRANSDERMAL TD SCH (08:12)
[2017-10-24] MEDS: MINOXIDIL 2.5 MG TAB PO SCH (08:13)
[2017-10-24] MEDS: LACTOBACILLUS ACIDOPHILUS CAP (BACID) PO SCH ×3 (08:13→18:00)
[2017-10-24] MEDS: LOSARTAN 50 MG TAB PO SCH (08:13)
--- NOTE | 2017-10-24 08:34 | REP ---
Portable chest, 07:54 a.m.: Comparisons 10/23/2017. The previous right lung infiltrate has significantly improved. There is an unusual density superimposed over the right mid lung laterally of uncertain significance. This be artifact external to the patient or could represent pleural tenting and possible loculated pneumothorax. Correlation clinically is recommended. CT follow-up might be considered. Left lung is clear. Cardiac size normal. Berenice, mediastinum, bony thorax are unchanged. There is a fracture of the right humeral neck, unchanged from 07/29/2017. Impression: Improved right lung infiltrate. Unusual density superimposed over the right mid lung as described above. Artifact versus small right pneumothorax. Signed by Cristopher Fry MD 10/24/2017 08:25 A
[2017-10-24 09:22] LABS: INR 1.41
[2017-10-24 09:44] LABS: ALBUMIN 3.5 GM/DL (3.2-5.2); ALBUMIN/GLOBULIN RATIO 1.3 (1.00-1.93); BILIRUBIN,DIRECT 0.3 MG/DL (0.0-0.2); BILIRUBIN,TOTAL 0.7 MG/DL (0.2-1.0); TOTAL PROTEIN 6.2 GM/DL (6.4-8.2)
[2017-10-24] MEDS: **hydrALAZINE** 10 MG TAB PO SCH ×2 (12:02→18:00)
--- NOTE | 2017-10-24 14:27 | IPN ---
DATE: 10/24/2017 Ms. Blackmon is seen at bedside. She states that she is breathing much better today. Per nursing, she was taken off non-invasive positive pressure ventilation yesterday at 1950 hours and has been saturating in the mid 90s overnight on 2 liters of nasal cannula. She has no complaints today. She denies any problems breathing, chest pain, nausea, or vomiting. She had 2 liters of fluid removed at dialysis yesterday. She states that she is interested in quitting smoking. She is currently on a 7 mg nicotine patch per the hospitalist service. She follows with Dr. Gutiérrez outpatient. PHYSICAL EXAMINATION: VITALS: Temperature is 100.6, pulse 66, respiratory rate is 20, blood pressure 161/77 with a MAP of 105, pulse ox is 96% in 2 liters nasal cannula. GENERAL: Patient is awake, alert and cooperative. She is not in any acute distress. HEENT: Pupils equal, round, and reactive to light, eyes are clear. NECK: Supple, nontender. Trachea is midline. LUNGS: Symmetric expansion, prolonged expiratory phase. Diminished breath sounds but clear to auscultation bilaterally. No rhonchi or rales. Very faint expiratory wheezes at the bases. HEART: Regular rate and rhythm, no murmurs, gallops or rubs. EXTREMITIES: Arteriovenous fistula in the left forearm, peripheral pulses are palpated bilaterally. ABDOMEN: Thin, soft and nontender to palpation, normoactive bowel sounds. LABORATORY DATA: CBC: White blood cells 11.7, hemoglobin 10.2, hematocrit 31.6, platelets 172. There is no differential. Chemistry: Sodium 139, potassium 4.6, chloride 101, carbon dioxide 27, anion gap 11, BUN 38, creatinine 3.42, fasting glucose 82, calcium 9.0, total bilirubin 0.7, AST 21, ALT 27, alkaline phosphatase 65, total protein 6.2, albumen 3.5, TSH 0.364. Blood gas from 10/23/2017: Arterial blood gas pH 7.45, pCO2 33.0, pO2 112. Chest x-ray: Marked hyperinflation, no infiltrate seen. There is some mediastinal shift to the right. She does have chronic lung markings. There is an unusual density in the right mid lung laterally. This could be part of the patient's clothing as she is very, very, thin. IMPRESSION AND PLAN: Ms. Blackmon is a 66-year-old female who we were consulted for due to respiratory acidosis with hypoxia. She is doing much better today and is off noninvasive pelvic pressure ventilation. She is only on 2 liters of nasal cannula and has been saturating in the mid 90s overnight. She does follow with Dr. Gutiérrez outpatient. PLAN: 1. Acute on chronic hypercarbic respiratory failure. The patient's most recent ABG showed normal pH. She is on 2 liters of oxygen via nasal cannula and saturating in the mid 90s without symptoms of shortness of breath. 2. Emphysema: The patient is on Incruse as an outpatient. She should be on an a long-acting anticholinergic, I will start Spiriva. 3. History of Clostridium difficile: The patient has no indication of acute infection, we recommend stopping the vancomycin and Zosyn as she does have a history of Clostridium difficile. This has been discussed with her hospitalist team and they are in agreement. 4. Tobacco abuse. Patient is interested in smoking cessation. She is currently on a 7 mg nicotine patch and that is working well for her. We are signing off of Ms. Blackmon for now. She will followup with Dr. Gutiérrez outpatient in the office. If you need our services, please call us for consultation. My faculty preceptor for this patient encounter was physically present during the encounter and was fully available. All aspects of the patient interview, examination, medical decision making process, and medical care plan development were reviewed and approved by the faculty preceptor. The faculty preceptor is aware and concurs with the plan as stated in the body of this note and will attest to such by his/her co-signature. BRANDT
[2017-10-24] MEDS: LORazepam 1 MG TAB PO SCH (21:07)
[2017-10-24] MEDS: ESCITALOPRAM OXALATE 10 MG TAB (LEXAPRO) PO SCH (21:08)
[2017-10-25] MEDS: **hydrALAZINE** 10 MG TAB PO SCH ×3 (00:25→12:00)
--- NOTE | 2017-10-25 01:35 | IPN ---
DATE OF SERVICE: 10/24/2017 SUBJECTIVE: The patient is seen this morning at the bedside in the intensive care unit. She states that her breathing has improved as compared to yesterday and she is comfortable on nasal cannula at present. She complains of a headache and requests pain medication. I had a discussion with her regarding smoking cessation. She tolerated 2-liter ultrafiltration on hemodialysis yesterday and she is for dialysis again today later on in the afternoon. VITAL SIGNS: Temperature 99.4, pulse 66, respiratory rate 20, blood pressure systolic 148-186, diastolic 75-93, saturating 95% on 2 liters nasal cannula. Intake and output: Hemodialysis yesterday removed 2000 mL ultrafiltration and hemodialysis today removed another 1000 mL ultrafiltration. Weight on the bed scale today is 40.6 kg. GENERAL: The patient is seen in the intensive care unit in bed in no acute distress. She is awake, alert and cooperative. She is very frail and cachectic and appears older than stated age. HEAD AND NECK: Extraocular muscles are intact. Oral mucosa is moist. Nasal cannula is in place. The neck is supple. Trachea is midline. CARDIAC: S1, S2, regular rate, 2+ radial pulse. LUNGS: There is symmetric air entry bilaterally that is diminished. There is no overt rale or crackle. There are end-expiratory wheezes scattered. EXTREMITIES: There is an arteriovenous (AV) fistula in the left upper extremity with thrill and bruit. The lower extremities have absolutely no pitting edema. ABDOMEN: Soft and distended and enlarged kidneys are easily palpable. SKIN: The skin is heavily wrinkled and warm with no rash. NEUROLOGIC: She is at her baseline mentation. PSYCHIATRIC: Appropriate mood and affect. LABORATORIES: White count 11.7, hemoglobin 10.2, platelets 172. Sodium 139, potassium 4.6, bicarbonate 27, glucose 82. TSH 0.3. AST, ALT normal. Microbiology: Respiratory panel negative. IMAGING: Chest x-ray 10/24: Improved right lung infiltrate. INPATIENT MEDICATIONS: The patient is discontinued off of vancomycin and Zosyn per the primary team. She is started on Bacid and Spiriva. The remainder of medications is unchanged from prior. PROBLEMS: 1. Acute hypercarbic respiratory failure and volume overload. The patient has improved from a respiratory point of view. She is now seen comfortable on nasal cannula. She had 2 kg ultrafiltration on emergent hemodialysis yesterday and she is dialyzed again today per her maintenance schedule with goal ultrafiltration of 1 kg. Given her end-stage renal disease along with her chronic obstructive pulmonary disease (COPD) and poor respiratory reserve, the patient has had recurrent hospitalizations for acute hypercarbic respiratory failure. She is counseled again on smoking cessation and at this time is on nicotine patch. 2. End-stage renal disease on hemodialysis. The patient was dialyzed today for 2-1/2 hours as per her maintenance schedule of Tuesday, Tuesday, Tuesday. Given that she had 2 kg ultrafiltration on emergent dialysis yesterday, today we removed 1 kg, which the patient tolerated. Next hemodialysis will be on Tuesday, 10/26. 3. Heart failure with preserved ejection fraction. Volume status is regulated through hemodialysis. The patient has had two serial dialysis sessions on this admission. I believe she is fairly euvolemic at present. Next hemodialysis session will be on 10/26. 4. COPD. Chronic active smoker. The patient is started by pulmonary on Spiriva today. She is also on a nicotine patch. She continues on Symbicort and DuoNebs and at present is requiring supplemental oxygen via nasal cannula. 5. Leukocytosis. The patient's white count has significantly improved. Her antibiotics have been discontinued per the primary team. 6. Hypertension. With serial ultrafiltration and volume regulation and her antihypertensive regimen, the patient's blood pressures have improved as compared to admission and at this time she continues on atenolol 50 mg by mouth twice a day, hydralazine 10 mg by mouth every six, losartan 100 mg by mouth daily, and nicotine 2.5 mg by mouth daily.
[2017-10-25] MEDS: NITROGLYCERIN 2% OINT 1 GM *U/D* PKT TOP SCH ×3 (02:00→10:00)
[2017-10-25] MEDS: IPRATROPIUM 0.5MG/ALBUTEROL 2.5MG INH SOL UD 3ML (DUONEB)(J7620) NEB SCH ×4 (04:00→11:42)
[2017-10-25 06:00] VITALS: BP 175/85
[2017-10-25] MEDS: LEVOTHYROXINE 137MCG TABLET (0.137MG) PO SCH (06:24)
[2017-10-25 06:49] LABS: MEAN CORPUSCULAR HEMOGLOBIN 32.7 pg (27.0-33.0); MEAN CORPUSCULAR HGB CONC 31.9 g/dl (32.0-36.5); MEAN CORPUSCULAR VOLUME 102.5 fl (80.0-96.0); PLATELET COUNT, AUTOMATED 171 10^3/uL (150-450); RED CELL DISTRIBUTION WIDTH 19.1 % (11.5-14.5); WHITE BLOOD COUNT 9.9 10^3/uL (4.0-10.0)
[2017-10-25 07:01] LABS: CALCIUM LEVEL 8.2 MG/DL (8.8-10.2); CREATININE FOR GFR 2.89 MG/DL (0.55-1.02); GLOMERULAR FILTRATION RATE 17.2 (>45); POTASSIUM SERUM 3.6 MEQ/L (3.5-5.1)
[2017-10-25] MEDS: TIOTROPIUM INHALER/CAPSULE (SPIRIVA) INH SCH (08:36)
[2017-10-25] MEDS: SYMBICORT 160/4.5MCG INHALER 6GM INH SCH (08:36)
[2017-10-25] MEDS: NICOTINE 7 MG/24 HR TRANSDERMAL TD SCH (08:50)
[2017-10-25] MEDS: LOSARTAN 50 MG TAB PO SCH (08:50)
[2017-10-25] MEDS: MINOXIDIL 2.5 MG TAB PO SCH (08:50)
[2017-10-25] MEDS: LACTOBACILLUS ACIDOPHILUS CAP (BACID) PO SCH ×2 (08:50→12:30)
[2017-10-25] MEDS: ASPIRIN 81 MG ENTERIC TAB PO SCH (08:50)
[2017-10-25] MEDS: ATENOLOL 50 MG TAB PO SCH (08:51)
--- NOTE | 2017-10-25 10:52 | IPNPDOC ---
Date Seen The patient was seen on 10/25/17. Progress Note SUBJECTIVE: Patient is a 66-year-old female with acute respiratory acidosis with hypercarbia. Patient is evaluated at bedside this morning. She has been transferred to the medical-surgical unit. She states that her breathing has improved. Denies chest pain, shortness of breath, fever, or productive cough. Patient received emergent dialysis on day of admission and then received her regularly scheduled dialysis yesterday. Patient has improved significantly and will likely be stable for discharge in 48 hours. Patient cannot be discharged on day of dialysis. OBJECTIVE PHYSICAL EXAMINATION: VITAL SIGNS: Please see below. GENERAL: Frail female, appears older than stated age, no acute distress HEENT: Atraumatic, normocephalic, PERRL, EOMI, oral mucosa appears pink and moist, nasal septum appears midline, nares with nasal cannula in place CARDIOVASCULAR: Regular rate and rhythm, normal S1 and S2, no murmur, rub, click RESPIRATORY: Diminished airway excursion bilaterally ABDOMINAL: Bowel sounds diminished, non-tender, somewhat rounded, abdomen feels nodular and full, liver is prominently palpated EXTREMITIES: Frail, skin is dry, radial and posterior pulses are equal and symmetrical, +2, no peripheral edema NEUROLOGICAL: CN II-XII grossly intact PSYCHOLOGICAL: Alert and conversant LABORATORY DATA: Please see below. MICROBIOLOGY: Please see below. IMAGING: Chest x-ray, one view IMPRESSION: 1. Bilateral lower lobe and right upper lobe infiltrates. 2. Small bilateral pleural effusions. Portable chest x-ray IMPRESSION: Improved right lung infiltrate. Unusual density superimposed over the right mid lung as described above. Artifact versus small right pneumothorax. DVT prophylaxis ordered?: TEDs and sequentials ASSESSMENT AND PLAN: This is a 66-year-old female with acute respiratory acidosis with hypercarbia. PROBLEMS: 1. Acute respiratory acidosis with hypercarbia: Repeat chest x-ray shows improvement. MRSA screen is pending. Respiratory panel is negative. Normalized leukocytosis. Breathing has improved. Continue with Duonebs, Symbicort, and supplemental oxygen. Pulmonology consulted and recommended starting patient on Spiriva, which has been done. 2. Hypertensive urgency: Blood pressure improved. Remains on Atenolol, Cozaar , and Hydralazine. Cardiac markers have been stable. 3. Diastolic congestive heart failure (CHF): Receiving hemodialysis. Continue to appreciate the assistance from nephrology. Strict I/Os, daily weights, and fluid restriction. 4. End-stage renal disease with fluid overload: Hemodialysis MWF. Nephrology has been consulted. 5. Chronic anemia: No active signs of bleeding. 6. Chronic obstructive pulmonary disease: Discontinued antibiotics. Leukocytosis resolved. Continue with Duonebs and Symbicort. 7. Hypertensive lung disease: Echo ejection fraction (EF) of 70%, left ventricular diastolic dysfunction, moderately severe pulmonary hypertension and elevated CVP. 8. Depression: Continue with Lexapro and Ativan. 9. Hypothyroidism: TSH 0.364. Continue with Synthroid. 10. Chronic back pain: Continue with Tylenol. 11. Polycystic liver disease: INR 1.41; AST/ALT 21/27. 12. Tobacco dependence: Nicotine patch as needed. 13. History of Clostridium difficile: Monitor bowel movements. Continue with Bacid. DISPOSITION: Admitted to the medical-surgical unit. Breathing and leukocytosis improved. Continue with dialysis on regular schedule. Possible discharge in 48 hours. VS, I&O, 24H, [facility] Vital Signs/I&O Vital Signs Date Time Temp Pulse Resp B/P (MAP) Pulse Ox O2 Delivery O2 Flow Rate FiO2 10/25/17 08:51 57 175/85 10/25/17 07:28 Nasal Cannula 2.0 10/25/17 06:00 98.8 16 100 10/23/17 16:00 30 Laboratory Data 24H LABS Laboratory Tests 2 10/25/17 06:12: Nucleated Red Blood Cells % (auto) 0.0, Anion Gap 7L, Glomerular Filtration Rate 17.2L, Blood Urea Nitrogen 22H, Creatinine 2.89H, Sodium Level 140, Potassium Level 3.6#, Chloride Level 102, Carbon Dioxide Level 31, Calcium Level 8.2L CBC/BMP Laboratory Tests 10/25/17 06:12 Red Blood Count 3.15 L, Mean Corpuscular Volume 102.5 H, Mean Corpuscular Hemoglobin 32.7, Mean Corpuscular Hemoglobin Concent 31.9 L, Red Cell Distribution Width 19.1 H, Calcium Level 8.2 L Microbiology Microbiology 10/24/17 MRSA Screen, Resulted Pending 10/24/17 Respiratory Virus Panel (PCR) ([facility]) - Final, Resulted LYNN SALAZAR DO Oct 25, 2017 10:52
[2017-10-25 11:00] VITALS: BP 140/82
[2017-10-25] MEDS ORDERED: MINO2.5T PO (11:43)
[2017-10-25] MEDS ORDERED: TIOT18INH INH (11:53)
[2017-10-25 12:00] VITALS: BP 132/70
--- NOTE | 2017-10-25 12:26 | IPN ---
DATE OF SERVICE: 10/25/2017 SUBJECTIVE: The patient is seen this morning at the bedside. She denies any acute events or complaints overnight. Reports that she has been ambulating. Denies any shortness of breath with exertion that is different from her baseline. She has received hemodialysis the past two days without issue. Her blood pressure has improved from prior. She reports she is tolerating oral intake without issue. VITAL SIGNS: Temperature 98.8, pulse 57 to 61, blood pressure 140/82, saturating 100% on 2 liters nasal cannula. INTAKE AND OUTPUT: Hemodialysis yesterday removed 1000 mL ultrafiltration. Oral intake was recorded as 518 mL, net negative 570. Weight on the bed scale today is 41.6 kg. GENERAL: The patient is seen comfortable lying in bed in no acute distress. She is frail and cachectic and appears much older than stated age. She is awake, alert cooperative, conversational and in no acute respiratory distress. HEAD AND NECK: Extraocular muscles are intact. Oral mucosa is moist. Nasal cannula is in place. She has heavy wrinkling of the skin. CARDIAC: S1, S2, regular rate, 2+ radial pulse. No edema in the peripheries. LUNGS: Diminished, symmetric air entry. No use of accessory muscle of inspiration. Speaking in full sentences with ease. ABDOMEN: Soft, distended, with palpable kidneys. EXTREMITIES: There is a left upper extremity fistula with thrill and bruit. The lower extremities have absolutely no pitting edema and the skin is wrinkled. NEUROLOGIC: She is at her baseline mentation. PSYCHIATRIC: Appropriate mood and affect. LABORATORIES: White count 9.9, hemoglobin 10.3, platelets 171. Sodium 140, potassium 3.6, bicarbonate 31, calcium 8.2, glucose 80. INPATIENT MEDICATIONS: Reviewed by myself and there is no change from prior. PROBLEMS: 1. End stage renal disease on hemodialysis. The patient received two serial hemodialysis sessions on this admission, Tuesday10/23/2017 and Tuesday10/24/2017. She is currently fairly euvolemic on exam. Both her blood pressure and her respiratory status have improved with serial hemodialysis and ultrafiltration. Her next hemodialysis will be on 10/26/2017. 2. Acute hypercarbic respiratory failure and volume overload. The patient has had recurrent admissions for the same. She is now seen comfortable on nasal cannula. She has had two serial hemodialysis sessions for correction of her volume status. Given that she is a chronic active smoker with chronic obstructive pulmonary disease (COPD) and end stage renal disease, she is prone to recurrent episodes of respiratory decompensation. At present, she continues on DuoNebs, Symbicort, Spiriva and nicotine patch. 3. Hypertension. Her systolic has improved from prior with ultrafiltration. She continues on atenolol, hydralazine, losartan and minoxidil. There are no changes being made in her hypertensive regimen. 4. Heart failure with preserved ejection fraction. Volume status regulated through hemodialysis. Next hemodialysis session will be as per her maintenance schedule, Tuesday10/26/2017. She has had two serial hemodialysis sessions on this admission. She is fairly euvolemic at present. 5. Anemia of chronic kidney disease. Hemoglobin is at goal for end stage renal disease. The patient will continue with anemia protocol as an outpatient at her chronic hemodialysis unit.
--- NOTE | 2017-10-25 17:49 | DS.PDOC ---
Discharge Summary General Date of Admission Oct 23, 2017 at 08:43 Date of Discharge 10/25/2017 Primary Care Physician: Sarah Pickard Attending Physician: ESTRELLITA OWENS MD Specialist/Consultants Involve: Isiah Orr Specialist/Consultants Involve Nephrology: Dr. Susannah Mena Discharge Summary PROCEDURES PERFORMED DURING STAY: Transthoracic echocardiogram CONCLUSIONS: Normal left ventricular size, wall thickness and localized septal wall motion abnormality believed to be due to right ventricular pressure overload. Global left ventricular systolic function appeared to be preserved or minimally impaired. Borderline left atrial size with Doppler evidence of an impairment of LV diastolic function and mildly elevated mean left atrial pressure. Moderately dilated right heart chambers with reduced wall motion and Doppler evidence of severe pulmonary hypertension. Normal IVC size with reduced respiratory collapse suggestive of a slightly elevated central venous pressure. Mild aortic valvular sclerosis without stenosis, but mild insufficiency. Comparing today's study with that of April 28, 2017, global left ventricular systolic function appears to be slightly less, but again the main feature is her severe pulmonary hypertension. ADMITTING DIAGNOSES: 1. Acute respiratory acidosis with hypercarbia. 2. Hypertensive urgency. 3. End-stage renal disease with fluid overload. 4. SIRS with leukocytosis, hypoxia, and hypercarbia. SECONDARY DIAGNOSES: 1. Diastolic congestive heart failure. 2. Chronic anemia. 3. COPD. 4. Hypertensive lung disease. 5. Depression. 6. Hypothyroidism. 7. Chronic back pain. 8. Polycystic kidney disease. 9. Tobacco dependence. 10. History of Clostridium difficile infection. DISCHARGE DIAGNOSES: 1. Acute hypoxic respiratory acidosis with hypercarbia. 2. Hypertensive urgency. 3. ESRD with fluid overload. COMPLICATIONS/CHIEF COMPLAINT: Esrd On Dialysis, Hypoxemia, Resp Acidosis. HISTORY OF PRESENT ILLNESS: 66-year-old female with history significant for end- stage renal disease with polycystic kidney disease on hemodialysis, chronic anemia, diastolic congestive heart failure, hypertensive lung disease, hypertension, chronic obstructive pulmonary disease (COPD), chronic back pain, hypothyroidism, depression, polycystic liver disease, tobacco abuse, history of Clostridium (C) difficile, presented with worsening shortness of breath, unable to provide a full history due to severe respiratory distress. Patient usually has maintenance dialysis Tuesday, Tuesday, Tuesday. She denies any fever or chills. Complains of some chest pain and severe shortness of breath, unable to provide any further history. HOSPITAL COURSE: Acute respiratory acidosis with hypercarbia - Chest x-ray shows bilateral infiltrates most likely secondary to fluid overload requiring emergent hemodialysis. Shortness of breath evaluated by project scientist and reimbursement auditor (see consults below). Currently on BiPAP. Will recheck a repeat blood gas. Empiric IV antibiotics for leukocytosis. Eventually discontinued. Obtained sputum culture, MRSA screen and respiratory panel. Given one-time dose of Solu Medrol 125mg for COPD. Continue nebulizer treatments and supplemental oxygen. Hypertensive urgency - Patient given IV hydralazine, nitroglycerin topical ointment for systolic pressure goal less than 130. Will continue with intravenous labetalol for now, IV hydralazine every 4 hours. Since the patient has respiratory distress, unable to give oral medication. Improved and able to give oral medications. Cycle cardiac markers every 4 hours and were negative. Diastolic congestive heart failure (CHF) - Diuresis to be provided via hemodialysis, reimbursement auditor has been consulted. Strict intakes and outputs, daily weights and fluid restriction. End-stage renal disease with fluid overload - Maintenance hemodialysis MWF. Due to polycystic kidney disease, nephrology to manage patient's volume status. Systemic inflammatory response, elevated white count, hypoxia and hypercarbia - Check lactic acid for supportive care. Improved. No IV fluids due to fluid overload and CHF. Chronic anemia - No acute indication for red blood cell (RBC) transfusion. Chronic obstructive pulmonary disease - Trial of steroids, antibiotics, nebulizer treatments. Antibiotic therapy was discontinued. Started on Spiriva. Hypertensive lung disease - Echo ejection fraction (EF) of 70%, left ventricular diastolic dysfunction, moderately severe pulmonary hypertension and elevated CVP. Depression - Continue home medication regimen. Hypothyroidism - Continue with Synthroid. Chronic back pain - As needed Tylenol. Polycystic liver disease - Checked INR and TSH, which were within optimal range. Tobacco dependence - Nicotine patch provided. History of Clostridium difficile - Bowel movements monitored and given Bacid. Nephrology consult: Acute hypercapnic respiratory failure and volume overload - I was called to emergently dialyze the patient this morning. The patient is currently on BiPAP and admitted to the intensive care unit (ICU). The on-call dialysis nurse was notified and emergent hemodialysis was provided with 2 kg ultrafiltration over two and one-half hours of dialysis. There is also likely an element of chronic pulmonary obstructive disease (COPD) exacerbation and the patient is receiving IV steroids for the same. She also has a significant leukocytosis and is started on empiric antibiotics as well. Give her endstage renal disease and concurrent COPD she is prone to respiratory distress and has had chronic admissions for the same. A repeat blood gas did show improvement in her PCO2. She will likely need a second dialysis session tomorrow, October 24 in view of her current respiratory failure and also to keep her on her maintenance dialysis schedule. Patient improved from a respiratory standpoint. Resumed patient's regular hemodialysis schedule MWF. Hypertensive urgency - The patient's blood pressure showed improvement with ultrafiltration on hemodialysis. Her systolic should be corrected by 25% at the present time. She is currently started on atenolol, hydralazine, Losartan, and Minoxidil. Heart failure with preserved ejection fraction - Volume status is regulated through hemodialysis, 2 kg ultrafiltration with hemodialysis emergently today and likely serial hemodialysis again tomorrow, October 24. Chronic pulmonary obstructive disease - Chronic active smoker. The patient is started on IV steroids and nebulizer treatment. Started on Spiriva by pulmonology. Given her chronic active smoking and COPD she has had recurrent admissions for hypoxia and her long-term prognosis is poor. Leukocytosis and chest x-ray with infiltrates - The infiltrates may be related to pulmonary edema and may improve with hemodialysis and volume correction; however, at this time she is also understandably started on empiric antimicrobial with Zosyn and vancomycin renally dosed. Should her shortness of breath improve with correction of her volume status, then her antimicrobials can likely be discontinued. Pulmonology consult: The most pressing problems requiring my presence at the bedside - acute and chronic respiratory failure, both hypoxemic and hypercapnic ; metabolic acidosis, multifactorial; chronic renal failure, on dialysis; pulmonary edema; hypertension, advanced/endstage obstructive lung disease, continued tobacco abuse. At this point, she is on dialysis with a goal of not only fluid removal but nephrology is aggressively controlling her blood pressure. We will continue to support her noninvasive support as need be as until the other parameters outlined above can be addressed. I discussed with her daughter again her status. Again, she is not even willing to discuss smoking cessation. She remains a FULL CODE at this point. Will proceed as outlined above. Nebulizer treatments have been ordered. She is on empiric antimicrobials, but x-ray findings are likely fluid related, so antibiotics could be discontinued. Her prognosis in the long-term is poor. There is a high likelihood of decompensation and need for mechanical ventilatory support in the form of invasive ventilation. The patient's most recent ABG showed normal pH. She is on 2 liters of oxygen via nasal cannula and saturating in the mid 90s without symptoms of shortness of breath. The patient is on Incruse as an outpatient. She should be on an a long-acting anticholinergic, so Spiriva has been started. The patient has no indication of acute Clostridium difficile infection, so antibiotics have been discontinued. Patient is interested in smoking cessation. She is currently on a 7 mg nicotine patch and that is working well for her. DISCHARGE MEDICATIONS: Please see below. ALLERGIES: Please see below. PHYSICAL EXAMINATION ON DISCHARGE: VITAL SIGNS: Please see below. GENERAL: Frail female, appears older than stated age, no acute distress HEENT: Atraumatic, normocephalic, PERRL, EOMI, oral mucosa appears pink and moist, nasal septum appears midline, nares with nasal cannula in place CARDIOVASCULAR: Regular rate and rhythm, normal S1 and S2, no murmur, rub, click RESPIRATORY: Diminished airway excursion bilaterally ABDOMINAL: Bowel sounds diminished, non-tender, somewhat rounded, abdomen feels nodular and full, liver is prominently palpated EXTREMITIES: Frail, skin is dry, radial and posterior pulses are equal and symmetrical, +2, no peripheral edema NEUROLOGICAL: CN II-XII grossly intact PSYCHOLOGICAL: Alert and conversant LABORATORY DATA: Please see below. IMAGING: Chest x-ray, 1 view - 10/23/17 IMPRESSION: 1. Bilateral lower lobe and right upper lobe infiltrates. 2. Small bilateral pleural effusions. Portable chest x-ray - 10/24/17 IMPRESSION: Improved right lung infiltrate. Unusual density superimposed over the right mid lung as described above. Artifact versus small right pneumothorax. PROGNOSIS: Stable. ACTIVITY: As tolerated. DIET: 2g sodium. DISCHARGE PLAN: Problem: Managing health at home Goal: Improve health & wellness Instructions: Follow DC Instruction DISPOSITION: 01 Home, Self-Care. DISCHARGE INSTRUCTIONS: 1. Start taking Minoxidil. 2. Follow-up with your primary care provider, Sarah Pickard, on 11/10/17 at 2: 15PM. 3. Keep your hemodialysis appointment. 4. Maintain a 1500mL/24 hour fluid restriction. ITEMS TO FOLLOWUP ON ON OUTPATIENT: 1. ESRD on hemodialysis. 2. COPD - could consider discontinuing short-acting anticholinergic (Incrus Ellipta) and continuing with long-acting anticholinergic (Spiriva). DISCHARGE CONDITION: Stable. TIME SPENT ON DISCHARGE: Greater than 30 minutes. Vital Signs/I&Os Vital Signs Date Time Temp Pulse Resp B/P (MAP) Pulse Ox O2 Delivery O2 Flow Rate FiO2 10/25/17 12:00 132/70 10/25/17 12:00 60 10/25/17 07:28 Nasal Cannula 2.0 10/25/17 06:00 98.8 16 100 10/23/17 16:00 30 I&O- Last 24 Hours up to 6 AM 10/26/17 06:00 Intake Total 400 ml Balance 400 ml Laboratory Data Labs 24H Laboratory Tests 2 10/25/17 06:12: Nucleated Red Blood Cells % (auto) 0.0, Anion Gap 7L, Glomerular Filtration Rate 17.2L, Blood Urea Nitrogen 22H, Creatinine 2.89H, Sodium Level 140, Potassium Level 3.6#, Chloride Level 102, Carbon Dioxide Level 31, Calcium Level 8.2L CBC/BMP Laboratory Tests 10/25/17 06:12 Red Blood Count 3.15 L, Mean Corpuscular Volume 102.5 H, Mean Corpuscular Hemoglobin 32.7, Mean Corpuscular Hemoglobin Concent 31.9 L, Red Cell Distribution Width 19.1 H, Calcium Level 8.2 L Microbiology Microbiology 10/24/17 MRSA Screen - Final, Complete 10/24/17 Respiratory Virus Panel (PCR) ([facility]) - Final, Complete Discharge Medications Scheduled (Activella 1-0.5 mg) 1 Tab Tab, 1 TAB PO DAILY, (Reported) (Incruse Ellipta) 62.5 Mcg/Inh Inh, 1 PUFF INH DAILY, (Reported) Aspirin (Aspirin EC) 81 Mg Tabec, 81 MG PO 4XWK, (Reported) TAKES ON NON DIALYSIS DAYS, TUES, TH, SAT, SUN Atenolol (Atenolol) 50 Mg Tab, 50 MG PO BID, (Reported) Budesonide/Formoterol (Symbicort 160-4.5 Mcg/Act) 60 Puff/Inhaler Aers, 2 PUFF INH BID, (Reported) Escitalopram Oxalate (Lexapro) 10 Mg Tab, 10 MG PO QHS, (Reported) 30 MG TOTAL Escitalopram Oxalate (Lexapro) 20 Mg Tab, 20 MG PO QHS, (Reported) 30 MG TOTAL Levothyroxine Sodium (Synthroid) 137 Mcg Tab, 137 MCG PO DAILY, (Reported) Lorazepam (Lorazepam) 1 Mg Tab, 1 MG PO QHS, (Reported) Losartan Potassium (Losartan Potassium) 100 Mg Tab, 100 MG PO DAILY, (Reported) Minoxidil (Minoxidil) 2.5 Mg Tab, 2.5 MG PO BID Scheduled PRN Albuterol Sulfate (Ventolin Hfa) 200 Puff/8 Gm Aers, 2 PUFF INH Q4H PRN for SHORTNESS OF BREATH, (Reported) Albuterol Sulfate (Albuterol Sulfate) 2.5 Mg/3 Ml Nebu, 2.5 MG INH Q4H PRN for SHORTNESS OF BREATH, (Reported) Ipratropium [place] (Atrovent Hfa) 17 Mcg/Act Aer, 2 PUFFS INH QID PRN for SHORTNESS OF BREATH, (Reported) Lorazepam (Lorazepam) 1 Mg Tab, 1 MG PO BID PRN for ANXIETY, (Reported) Nicotine (Nicotine Transdermal Syst) 21 Mg/24 Hr Dis, 1 PATCH TD DAILYPRN PRN for NICOTINE WITHDRAWAL Allergies Coded Allergies: Lisinopril (Verified Allergy, Severe, tongue swelling, 08/05/17) Codeine (Unverified Adverse Reaction, Mild, GI UPSET, 08/05/17) LYNN SALAZAR DO Oct 25, 2017 17:49
== END 2017-10-25 13:30 | disposition home or self-care (01) | DRG 291 ==
LOC: EDBD 03:53 → M ED 03:53 → M ED INP 08:43 → M ICU 10:33 → M MS5PR 10-24 15:10
PROVIDERS: ADMIT General Practice; ATTEND Internal Medicine Nephrology
DX: I13.2 Hypertensive heart and chronic kidney disease with heart failure and with stage 5 chronic kidney disease, or end stage renal disease (principal); N18.6 End stage renal disease; J96.21 Acute and chronic respiratory failure with hypoxia; J96.22 Acute and chronic respiratory failure with hypercapnia; Q61.3 Polycystic kidney, unspecified; Q44.6 Cystic disease of liver; E87.2 Acidosis; J44.1 Chronic obstructive pulmonary disease with (acute) exacerbation; I50.30 Unspecified diastolic (congestive) heart failure; I16.0 Hypertensive urgency; D63.1 Anemia in chronic kidney disease; E03.9 Hypothyroidism, unspecified; F17.200 Nicotine dependence, unspecified, uncomplicated; Z79.82 Long term (current) use of aspirin; Z79.899 Other long term (current) drug therapy; Z88.5 Allergy status to narcotic agent; Z88.8 Allergy status to other drugs, medicaments and biological substances; D72.829 Elevated white blood cell count, unspecified; F32.9 Major depressive disorder, single episode, unspecified

== ENCOUNTER 2017-11-22 12:14 | Emergency (ER) | payer MEDICARE, MEDICAID ==
[2017-11-22] MEDS: methylPREDNISolone INJ 125 MG/2 ML VIAL (J2930) IV (14:00)
[2017-11-22 14:03] LABS: CPK CREATINE PHOSPHOKINASE 65 U/L (26-192); TROPONIN I 0.02 NG/ML (< 0.10)
[2017-11-22 14:04] LABS: NT-PRO BNP 24779 PG/ML (<125)
[2017-11-22 14:04] LABS: CK-MB VALUE MASS 5.9 NG/ML (0.0-3.6); MB/CK RELATIVE INDEX 9.07 (< OR =4)
[2017-11-22 14:08] LABS: BASO # 0.1 10^3/uL (0.0-0.2); BASO % 1.1 % (0.0-1.0); EOS # 0.6 10^3/uL (0.0-0.50); EOS % 4.5 % (0.0-3.0); HEMATOCRIT 32.2 % (36.0-47.0); HEMOGLOBIN 10.2 g/dl (12.0-16.0); IMMATURE GRANULOCYTE # 0.1 10^3/uL (0-0); IMMATURE GRANULOCYTE % 0.4 % (0-0); LYMPH # 1.6 10^3/uL (1.5-4.5); MEAN CORPUSCULAR HEMOGLOBIN 31.7 pg (27.0-33.0); MEAN CORPUSCULAR HGB CONC 31.7 g/dl (32.0-36.5); MONO # 0.5 10^3/uL (0.0-0.8); MONO % 3.6 % (0.0-5.0); NEUTROPHILS # 9.6 10^3/uL (1.8-7.7); NEUTROPHILS % 77.4 % (36.0-66.0); PLATELET COUNT, AUTOMATED 287 10^3/uL (150-450); RED BLOOD COUNT 3.22 10^6/uL (4.00-5.40); WHITE BLOOD COUNT 12.4 10^3/uL (4.0-10.0)
[2017-11-22] MEDS: IPRATROPIUM 0.5MG/ALBUTEROL 2.5MG INH SOL UD 3ML (DUONEB)(J7620) NEB ×3 (14:08→14:31)
[2017-11-22 16:49] LABS: ANION GAP 14 MEQ/L (8-16); BLOOD UREA NITROGEN 60 MG/DL (7-18); CALCIUM LEVEL 8.2 MG/DL (8.8-10.2); CARBON DIOXIDE LEVEL 22 MEQ/L (21-32); CHLORIDE LEVEL 102 MEQ/L (98-107); CREATININE FOR GFR 8.05 MG/DL (0.55-1.02); GLOMERULAR FILTRATION RATE 5.3 (>45); GLUCOSE, FASTING 130 MG/DL (80-110); POTASSIUM SERUM 4.2 MEQ/L (3.5-5.1); SODIUM LEVEL 138 MEQ/L (136-145)
== END 2017-11-22 17:54 | disposition home or self-care (01) ==
LOC: M ED 12:14
DX: J44.1 Chronic obstructive pulmonary disease with (acute) exacerbation (principal); Z99.2 Dependence on renal dialysis; I50.9 Heart failure, unspecified; I12.0 Hypertensive chronic kidney disease with stage 5 chronic kidney disease or end stage renal disease; E03.9 Hypothyroidism, unspecified; N18.6 End stage renal disease; F17.200 Nicotine dependence, unspecified, uncomplicated
CPT/HCPCS: J2930

== ENCOUNTER 2017-12-05 19:19 | Inpatient (IN) | payer MEDICARE, MEDICAID ==
[2017-12-05 20:14] LABS: BEDSIDE GLUCOSE 62 MG/DL (80-115)
[2017-12-05 20:19] LABS: VENOUS BASE EXCESS 4.6 (-2.0-2.0); VENOUS HCO3 31.8 MEQ/L (23.0-27.0); VENOUS O2 SATURATION 95.9 % (60.0-80.0); VENOUS PARTIAL PRESSURE CO2 60.5 mmHg (38.0-50.0); VENOUS PARTIAL PRESSURE O2 77.9 mmHg (30.0-50.0); VENOUS PH 7.338 UNITS (7.330-7.430); VENOUS STANDARD HCO3 28.6 MEQ/L; VENOUS TOTAL CO2 33.6 MEQ/L (24.0-28.0)
[2017-12-05 20:26] LABS: BASO # 0.1 10^3/uL (0.0-0.2); BASO % 0.4 % (0.0-1.0); EOS # 0.8 10^3/uL (0.0-0.50); EOS % 5.8 % (0.0-3.0); HEMATOCRIT 32.1 % (36.0-47.0); HEMOGLOBIN 10.1 g/dl (12.0-16.0); IMMATURE GRANULOCYTE # 0.1 10^3/uL (0-0); IMMATURE GRANULOCYTE % 0.4 % (0-0); LYMPH # 2.8 10^3/uL (1.5-4.5); LYMPH % 20.2 % (24.0-44.0); MEAN CORPUSCULAR HEMOGLOBIN 32.2 pg (27.0-33.0); MEAN CORPUSCULAR HGB CONC 31.5 g/dl (32.0-36.5); MEAN CORPUSCULAR VOLUME 102.2 fl (80.0-96.0); MONO # 1.4 10^3/uL (0.0-0.8); MONO % 10.2 % (0.0-5.0); NEUTROPHILS # 8.6 10^3/uL (1.8-7.7); PLATELET COUNT, AUTOMATED 196 10^3/uL (150-450); RED BLOOD COUNT 3.14 10^6/uL (4.00-5.40); RED CELL DISTRIBUTION WIDTH 16.6 % (11.5-14.5); WHITE BLOOD COUNT 13.7 10^3/uL (4.0-10.0)
[2017-12-05] MEDS: IPRATROPIUM 0.5MG/ALBUTEROL 2.5MG INH SOL UD 3ML (DUONEB)(J7620) NEB (20:27)
[2017-12-05] MEDS: DEXTROSE 50% 50 ML SYRINGE IV ×2 (20:37→23:19)
[2017-12-05] MEDS: NS 500 ML IV (20:37)
[2017-12-05 20:55] LABS: LACTIC ACID SEPSIS PROTOCOL 0.6 MMOL/L (0.4-2.0)
[2017-12-05 20:55] LABS: ANION GAP 5 MEQ/L (8-16); BLOOD UREA NITROGEN 12 MG/DL (7-18); CALCIUM LEVEL 8.1 MG/DL (8.8-10.2); CARBON DIOXIDE LEVEL 35 MEQ/L (21-32); CHLORIDE LEVEL 100 MEQ/L (98-107); CPK CREATINE PHOSPHOKINASE 64 U/L (26-192); CREATININE FOR GFR 3.55 MG/DL (0.55-1.02); GLOMERULAR FILTRATION RATE 13.6 (>45); GLUCOSE, FASTING 59 MG/DL (80-110); POTASSIUM SERUM 3.8 MEQ/L (3.5-5.1); SODIUM LEVEL 140 MEQ/L (136-145); TROPONIN I 0.02 NG/ML (< 0.10)
[2017-12-05 20:56] LABS: CK-MB VALUE MASS 3.1 NG/ML (0.0-3.6); MB/CK RELATIVE INDEX 4.84 (< OR =4); NT-PRO BNP 29854 PG/ML (<125)
[2017-12-05] MEDS: SYMBICORT 160/4.5MCG INHALER 6GM INH (21:00)
[2017-12-05] MEDS: LORazepam 1 MG TAB PO (21:00)
[2017-12-05] MEDS: NS 1,000 ML IV (21:37)
[2017-12-05] MEDS: PIPERACILLIN/TAZOBACTAM SOD 3.375 GM in APPROPRIATE DILUENT 1 EA IV (21:44)
[2017-12-05] MEDS: HEPARIN SOD (PORCINE) 5000 UNITS/ML VIAL SC (22:00)
[2017-12-05] MEDS ORDERED: ACETAMINOPHEN TAB 650MG DOSE (2X325MG) PO (23:00)
[2017-12-05] MEDS ORDERED: ONDANSETRON 4MG/2ML VIAL (J2405) IV (23:00)
[2017-12-05] MEDS ORDERED: LORazepam 1 MG TAB PO (23:00)
[2017-12-05 23:03] LABS: BEDSIDE GLUCOSE 119 MG/DL (80-115)
[2017-12-05 23:07] LABS: BEDSIDE GLUCOSE 77 MG/DL (80-115)
[2017-12-06 00:28] LABS: BEDSIDE GLUCOSE 182 MG/DL (80-115)
[2017-12-06] MEDS ORDERED: NOREPINEPHRINE BITARTRATE 8 MG in D5W 500 ML IV (00:58)
[2017-12-06] MEDS ORDERED: HYDROCORTISONE 100 MG/2 ML VIAL (J1720) IV ×2 (01:35→01:40)
[2017-12-06] MEDS ORDERED: IPRATROPIUM 0.5MG/ALBUTEROL 2.5MG INH SOL UD 3ML (DUONEB)(J7620) NEB (02:15)
[2017-12-06] MEDS: HYDROCORTISONE 100 MG/2 ML VIAL (J1720) IV (02:30)
[2017-12-06] MEDS ORDERED: LIDOCAINE 1% MDV 20ML VIAL As Ordered (03:39)
[2017-12-06] MEDS ORDERED: SODIUM CHLORIDE 0.9% INJ 10 ML SYR IV (05:00)
[2017-12-06] MEDS: LEVOTHYROXINE 137MCG TABLET (0.137MG) PO (05:43)
[2017-12-06] MEDS: HEPARIN SOD (PORCINE) 5000 UNITS/ML VIAL SC ×3 (05:44→21:24)
[2017-12-06] MEDS: SODIUM CHLORIDE 0.9% INJ 10 ML SYR IV ×3 (05:44→21:25)
[2017-12-06 05:46] LABS: HEMOGLOBIN 9.7 g/dl (12.0-16.0); RED BLOOD COUNT 2.97 10^6/uL (4.00-5.40); WHITE BLOOD COUNT 13.1 10^3/uL (4.0-10.0)
[2017-12-06 05:47] LABS: MEAN CORPUSCULAR HEMOGLOBIN 32.7 pg (27.0-33.0); MEAN CORPUSCULAR HGB CONC 31.3 g/dl (32.0-36.5); MEAN CORPUSCULAR VOLUME 104.4 fl (80.0-96.0); PLATELET COUNT, AUTOMATED 172 10^3/uL (150-450); RED CELL DISTRIBUTION WIDTH 16.5 % (11.5-14.5)
[2017-12-06 06:25] LABS: BLOOD UREA NITROGEN 14 MG/DL (7-18); GLUCOSE, FASTING 66 MG/DL (80-110)
[2017-12-06 06:26] LABS: ANION GAP 8 MEQ/L (8-16); CALCIUM LEVEL 7.5 MG/DL (8.8-10.2); CARBON DIOXIDE LEVEL 29 MEQ/L (21-32); CHLORIDE LEVEL 105 MEQ/L (98-107); CREATININE FOR GFR 4.38 MG/DL (0.55-1.02); GLOMERULAR FILTRATION RATE 10.6 (>45); POTASSIUM SERUM 3.6 MEQ/L (3.5-5.1); SODIUM LEVEL 142 MEQ/L (136-145)
[2017-12-06 06:27] LABS: FREE THYROXINE INDEX 4.4 % (1.3-4.8); T UPTAKE 34 % (30-39)
[2017-12-06 07:19] LABS: INR 1.14; PROTHROMBIN TIME 14.8 SECONDS (12.4-14.5)
[2017-12-06] MEDS: ASPIRIN 81 MG ENTERIC TAB PO (09:09)
[2017-12-06] MEDS: PANTOPRAZOLE 40MG TAB (PROTONIX) PO (09:09)
[2017-12-06] MEDS ORDERED: DEXTROSE 50% 50 ML SYRINGE IV (09:45)
[2017-12-06] MEDS ORDERED: GLUCAGON FOR INJ 1 MG VIAL (J1610) SC (09:45)
[2017-12-06] MEDS ORDERED: GLUCOSE 4 GM CHEW TABLET PO (09:45)
[2017-12-06 11:12] LABS: ALBUMIN 3.3 GM/DL (3.2-5.2); ALBUMIN/GLOBULIN RATIO 1.32 (1.00-1.93); ALKALINE PHOSPHATASE 60 U/L (45-117); ALT/SGPT 10 U/L (12-78); AST/SGOT 18 U/L (7-37); BILIRUBIN,DIRECT 0.2 MG/DL (0.0-0.2); BILIRUBIN,TOTAL 0.6 MG/DL (0.2-1.0); TOTAL PROTEIN 5.8 GM/DL (6.4-8.2)
[2017-12-06] MEDS: IPRATROPIUM 0.5MG/ALBUTEROL 2.5MG INH SOL UD 3ML (DUONEB)(J7620) NEB ×3 (11:55→20:00)
[2017-12-06] MEDS: SYMBICORT 160/4.5MCG INHALER 6GM INH ×2 (11:56→20:23)
[2017-12-06] MEDS: DOPamine HCL 400 MG in APPROPRIATE DILUENT 1 EA IV (16:39)
[2017-12-06 16:59] LABS: BEDSIDE GLUCOSE 149 MG/DL (80-115)
[2017-12-06 17:54] LABS: AMMONIA < 10 uMOL/L (<32)
[2017-12-06] MEDS ORDERED: ESCITALOPRAM OXALATE 10 MG TAB (LEXAPRO) PO ×2 (21:00)
[2017-12-06 21:27] LABS: BEDSIDE GLUCOSE 100 MG/DL (80-115)
[2017-12-07] MEDS: IPRATROPIUM 0.5MG/ALBUTEROL 2.5MG INH SOL UD 3ML (DUONEB)(J7620) NEB ×5 (02:00→23:30)
[2017-12-07 05:11] LABS: HEMATOCRIT 32.4 % (36.0-47.0); MEAN CORPUSCULAR HEMOGLOBIN 31.7 pg (27.0-33.0); MEAN CORPUSCULAR HGB CONC 30.9 g/dl (32.0-36.5); MEAN CORPUSCULAR VOLUME 102.9 fl (80.0-96.0); PLATELET COUNT, AUTOMATED 188 10^3/uL (150-450); RED BLOOD COUNT 3.15 10^6/uL (4.00-5.40); RED CELL DISTRIBUTION WIDTH 16.1 % (11.5-14.5); WHITE BLOOD COUNT 11.2 10^3/uL (4.0-10.0)
[2017-12-07 05:31] LABS: ANION GAP 9 MEQ/L (8-16); BLOOD UREA NITROGEN 24 MG/DL (7-18); CALCIUM LEVEL 7.8 MG/DL (8.8-10.2); CARBON DIOXIDE LEVEL 26 MEQ/L (21-32); CHLORIDE LEVEL 104 MEQ/L (98-107); CREATININE FOR GFR 6.06 MG/DL (0.55-1.02); GLOMERULAR FILTRATION RATE 7.3 (>45); GLUCOSE, FASTING 84 MG/DL (80-110); MAGNESIUM LEVEL 2.1 MG/DL (1.8-2.4); POTASSIUM SERUM 3.9 MEQ/L (3.5-5.1); SODIUM LEVEL 139 MEQ/L (136-145)
[2017-12-07] MEDS: HEPARIN SOD (PORCINE) 5000 UNITS/ML VIAL SC ×4 (06:00→21:57)
[2017-12-07] MEDS: LEVOTHYROXINE 137MCG TABLET (0.137MG) PO (06:01)
[2017-12-07] MEDS: SODIUM CHLORIDE 0.9% INJ 10 ML SYR IV ×3 (06:02→21:55)
[2017-12-07] MEDS: PANTOPRAZOLE 40MG TAB (PROTONIX) PO (09:09)
[2017-12-07] MEDS: ASPIRIN 81 MG ENTERIC TAB PO (09:10)
[2017-12-07] MEDS: SYMBICORT 160/4.5MCG INHALER 6GM INH ×2 (09:40→23:30)
[2017-12-07 17:23] LABS: BEDSIDE GLUCOSE 104 MG/DL (80-115)
[2017-12-08] MEDS: ALBUTEROL SULFATE 2.5 MG/0.5 ML INH NEB SOLN NEB (04:01)
[2017-12-08] MEDS: LEVOTHYROXINE 137MCG TABLET (0.137MG) PO (05:54)
[2017-12-08] MEDS: HEPARIN SOD (PORCINE) 5000 UNITS/ML VIAL SC ×3 (05:54→22:00)
[2017-12-08] MEDS: SODIUM CHLORIDE 0.9% INJ 10 ML SYR IV ×3 (05:55→21:45)
[2017-12-08 06:45] LABS: HEMOGLOBIN 9.3 g/dl (12.0-16.0); MEAN CORPUSCULAR HEMOGLOBIN 31.4 pg (27.0-33.0); MEAN CORPUSCULAR VOLUME 101.4 fl (80.0-96.0); PLATELET COUNT, AUTOMATED 139 10^3/uL (150-450); RED BLOOD COUNT 2.96 10^6/uL (4.00-5.40); WHITE BLOOD COUNT 8.9 10^3/uL (4.0-10.0)
[2017-12-08 07:13] LABS: ANION GAP 13 MEQ/L (8-16); BLOOD UREA NITROGEN 34 MG/DL (7-18); CALCIUM LEVEL 7.5 MG/DL (8.8-10.2); CARBON DIOXIDE LEVEL 23 MEQ/L (21-32); CHLORIDE LEVEL 104 MEQ/L (98-107); CREATININE FOR GFR 7.35 MG/DL (0.55-1.02); GLOMERULAR FILTRATION RATE 5.9 (>45); GLUCOSE, FASTING 70 MG/DL (80-110); POTASSIUM SERUM 3.3 MEQ/L (3.5-5.1); SODIUM LEVEL 140 MEQ/L (136-145)
[2017-12-08] MEDS: IPRATROPIUM 0.5MG/ALBUTEROL 2.5MG INH SOL UD 3ML (DUONEB)(J7620) NEB ×3 (08:00→18:17)
[2017-12-08 08:03] LABS: BEDSIDE GLUCOSE 61 MG/DL (80-115)
[2017-12-08] MEDS: SYMBICORT 160/4.5MCG INHALER 6GM INH ×2 (08:13→21:12)
[2017-12-08] MEDS: ASPIRIN 81 MG ENTERIC TAB PO (08:47)
[2017-12-08] MEDS: PANTOPRAZOLE 40MG TAB (PROTONIX) PO (08:48)
[2017-12-08 19:36] LABS: BEDSIDE GLUCOSE 71 MG/DL (80-115)
[2017-12-08 21:10] LABS: BEDSIDE GLUCOSE 81 MG/DL (80-115)
[2017-12-09] MEDS: IPRATROPIUM 0.5MG/ALBUTEROL 2.5MG INH SOL UD 3ML (DUONEB)(J7620) NEB ×4 (02:00→17:55)
[2017-12-09] MEDS: PANTOPRAZOLE 40MG TAB (PROTONIX) PO (05:26)
[2017-12-09] MEDS: ASPIRIN 81 MG ENTERIC TAB PO (05:26)
[2017-12-09] MEDS: LEVOTHYROXINE 137MCG TABLET (0.137MG) PO (05:26)
[2017-12-09] MEDS: SODIUM CHLORIDE 0.9% INJ 10 ML SYR IV ×3 (05:27→21:35)
[2017-12-09] MEDS: HEPARIN SOD (PORCINE) 5000 UNITS/ML VIAL SC ×3 (06:00→21:34)
[2017-12-09 06:04] LABS: HEMATOCRIT 31.2 % (36.0-47.0); HEMOGLOBIN 9.8 g/dl (12.0-16.0); MEAN CORPUSCULAR HEMOGLOBIN 31.4 pg (27.0-33.0); MEAN CORPUSCULAR HGB CONC 31.4 g/dl (32.0-36.5); PLATELET COUNT, AUTOMATED 143 10^3/uL (150-450); RED BLOOD COUNT 3.12 10^6/uL (4.00-5.40); WHITE BLOOD COUNT 8.4 10^3/uL (4.0-10.0)
[2017-12-09] MEDS: SYMBICORT 160/4.5MCG INHALER 6GM INH ×2 (06:04→20:07)
[2017-12-09 06:24] LABS: ANION GAP 7 MEQ/L (8-16); BLOOD UREA NITROGEN 16 MG/DL (7-18); CALCIUM LEVEL 8.2 MG/DL (8.8-10.2); CARBON DIOXIDE LEVEL 31 MEQ/L (21-32); CHLORIDE LEVEL 101 MEQ/L (98-107); CREATININE FOR GFR 4.17 MG/DL (0.55-1.02); GLOMERULAR FILTRATION RATE 11.3 (>45); GLUCOSE, FASTING 66 MG/DL (80-110); MAGNESIUM LEVEL 1.9 MG/DL (1.8-2.4); POTASSIUM SERUM 3.1 MEQ/L (3.5-5.1); SODIUM LEVEL 139 MEQ/L (136-145)
[2017-12-09] MEDS: POTASSIUM CHLORIDE 10 MEQ SR TABLET PO (07:40)
[2017-12-09] MEDS: ALBUTEROL SULFATE 2.5 MG/0.5 ML INH NEB SOLN NEB ×2 (07:53→22:15)
[2017-12-09 13:18] LABS: BEDSIDE GLUCOSE 117 MG/DL (80-115)
[2017-12-09 17:51] LABS: BEDSIDE GLUCOSE 77 MG/DL (80-115)
[2017-12-09 20:57] LABS: BEDSIDE GLUCOSE 90 MG/DL (80-115)
[2017-12-10] MEDS: IPRATROPIUM 0.5MG/ALBUTEROL 2.5MG INH SOL UD 3ML (DUONEB)(J7620) NEB ×4 (02:15→20:00)
[2017-12-10] MEDS: LEVOTHYROXINE 137MCG TABLET (0.137MG) PO (05:35)
[2017-12-10] MEDS: HEPARIN SOD (PORCINE) 5000 UNITS/ML VIAL SC ×3 (05:35→22:00)
[2017-12-10] MEDS: SODIUM CHLORIDE 0.9% INJ 10 ML SYR IV ×3 (05:36→22:05)
[2017-12-10 07:34] LABS: BEDSIDE GLUCOSE 69 MG/DL (80-115)
[2017-12-10] MEDS: ASPIRIN 81 MG ENTERIC TAB PO (07:51)
[2017-12-10] MEDS: PANTOPRAZOLE 40MG TAB (PROTONIX) PO (07:51)
[2017-12-10] MEDS: SYMBICORT 160/4.5MCG INHALER 6GM INH ×2 (07:53→21:16)
[2017-12-10 09:29] LABS: ANION GAP 11 MEQ/L (8-16); BLOOD UREA NITROGEN 11 MG/DL (7-18); CALCIUM LEVEL 8.3 MG/DL (8.8-10.2); CARBON DIOXIDE LEVEL 27 MEQ/L (21-32); CHLORIDE LEVEL 105 MEQ/L (98-107); CREATININE FOR GFR 3.28 MG/DL (0.55-1.02); GLOMERULAR FILTRATION RATE 14.9 (>45); GLUCOSE, FASTING 101 MG/DL (80-110); MAGNESIUM LEVEL 1.8 MG/DL (1.8-2.4); POTASSIUM SERUM 3.7 MEQ/L (3.5-5.1); SODIUM LEVEL 143 MEQ/L (136-145)
[2017-12-10 10:25] LABS: HEMATOCRIT 30.1 % (36.0-47.0); HEMOGLOBIN 9.3 g/dl (12.0-16.0); MEAN CORPUSCULAR HEMOGLOBIN 31.6 pg (27.0-33.0); MEAN CORPUSCULAR HGB CONC 30.9 g/dl (32.0-36.5); MEAN CORPUSCULAR VOLUME 102.4 fl (80.0-96.0); PLATELET COUNT, AUTOMATED 115 10^3/uL (150-450); RED BLOOD COUNT 2.94 10^6/uL (4.00-5.40); RED CELL DISTRIBUTION WIDTH 16.1 % (11.5-14.5); WHITE BLOOD COUNT 6.8 10^3/uL (4.0-10.0)
[2017-12-10] MEDS: LOSARTAN 50 MG TAB PO (14:50)
[2017-12-10 16:37] LABS: BEDSIDE GLUCOSE 95 MG/DL (80-115)
[2017-12-10] MEDS ORDERED: DARBEPOETIN 100 MCG/0.5 ML *DIALYSIS* SYRINGE (J0882) IV (17:45)
[2017-12-11] MEDS: IPRATROPIUM 0.5MG/ALBUTEROL 2.5MG INH SOL UD 3ML (DUONEB)(J7620) NEB ×2 (02:39→08:00)
[2017-12-11] MEDS: LEVOTHYROXINE 137MCG TABLET (0.137MG) PO (05:41)
[2017-12-11] MEDS: SODIUM CHLORIDE 0.9% INJ 10 ML SYR IV ×2 (05:41→13:27)
[2017-12-11] MEDS: HEPARIN SOD (PORCINE) 5000 UNITS/ML VIAL SC ×2 (05:41→13:26)
[2017-12-11] MEDS: SYMBICORT 160/4.5MCG INHALER 6GM INH (08:01)
[2017-12-11] MEDS: PANTOPRAZOLE 40MG TAB (PROTONIX) PO (08:06)
[2017-12-11] MEDS: ASPIRIN 81 MG ENTERIC TAB PO (08:06)
[2017-12-11] MEDS: LOSARTAN 50 MG TAB PO (08:06)
[2017-12-11 08:07] LABS: HEMATOCRIT 30.2 % (36.0-47.0); HEMOGLOBIN 9.3 g/dl (12.0-16.0); MEAN CORPUSCULAR HEMOGLOBIN 31.6 pg (27.0-33.0); MEAN CORPUSCULAR HGB CONC 30.8 g/dl (32.0-36.5); MEAN CORPUSCULAR VOLUME 102.7 fl (80.0-96.0); RED BLOOD COUNT 2.94 10^6/uL (4.00-5.40); RED CELL DISTRIBUTION WIDTH 15.8 % (11.5-14.5); WHITE BLOOD COUNT 6.5 10^3/uL (4.0-10.0)
[2017-12-11 08:08] LABS: PLATELET COUNT, AUTOMATED 86 10^3/uL (150-450)
[2017-12-11 08:09] LABS: IMMATURE PLATELET FRACTION % 5.5 % (0.0-9.6)
[2017-12-11 08:34] LABS: ANION GAP 9 MEQ/L (8-16); BLOOD UREA NITROGEN 19 MG/DL (7-18); CALCIUM LEVEL 7.8 MG/DL (8.8-10.2); CARBON DIOXIDE LEVEL 27 MEQ/L (21-32); CHLORIDE LEVEL 106 MEQ/L (98-107); CREATININE FOR GFR 4.69 MG/DL (0.55-1.02); GLOMERULAR FILTRATION RATE 9.8 (>45); GLUCOSE, FASTING 72 MG/DL (80-110); POTASSIUM SERUM 4.1 MEQ/L (3.5-5.1); SODIUM LEVEL 142 MEQ/L (136-145)
== END 2017-12-11 15:33 | disposition home health service (06) | DRG 917 ==
LOC: M MSPAV 12-08 13:04 → M ICU 12-06 01:34 → M ED 19:19 → M ED INP 22:53
DX: T46.5X1A Poisoning by other antihypertensive drugs, accidental (unintentional), initial encounter (principal); N18.6 End stage renal disease; G92 Toxic encephalopathy; Q61.3 Polycystic kidney, unspecified; I50.32 Chronic diastolic (congestive) heart failure; Q44.6 Cystic disease of liver; M48.54XA Collapsed vertebra, not elsewhere classified, thoracic region, initial encounter for fracture; I13.2 Hypertensive heart and chronic kidney disease with heart failure and with stage 5 chronic kidney disease, or end stage renal disease; I95.2 Hypotension due to drugs; F17.200 Nicotine dependence, unspecified, uncomplicated; D64.9 Anemia, unspecified; F41.9 Anxiety disorder, unspecified; F32.9 Major depressive disorder, single episode, unspecified; E03.9 Hypothyroidism, unspecified; J44.9 Chronic obstructive pulmonary disease, unspecified; I27.20 Pulmonary hypertension, unspecified; R00.1 Bradycardia, unspecified; E16.2 Hypoglycemia, unspecified; Z79.899 Other long term (current) drug therapy; Z99.81 Dependence on supplemental oxygen; Z88.5 Allergy status to narcotic agent; Z88.8 Allergy status to other drugs, medicaments and biological substances; Z79.82 Long term (current) use of aspirin; E87.6 Hypokalemia

== ENCOUNTER 2017-12-19 13:53 | Inpatient (IN) | payer MEDICARE, MEDICAID ==
[2017-12-19] MEDS: IPRATROPIUM 0.5MG/ALBUTEROL 2.5MG INH SOL UD 3ML (DUONEB)(J7620) NEB ×4 (15:47→20:03)
[2017-12-19 16:08] LABS: ABG BASE EXCESS -3.2 (-2.0-2.0); ABG O2 SATURATION 92.4 % (95.0-99.0); ABG PARTIAL PRESSURE CO2 46.7 mmHg (35.0-45.0); ABG PARTIAL PRESSURE O2 67.3 mmHg (75.0-100.0); ABG STANDARD HCO3 21.7 MEQ/L (22.0-26.0); ABG TOTAL CO2 24.5 MEQ/L (23.0-31.0); ABG pH (ARTERIAL) 7.311 UNITS (7.350-7.450)
[2017-12-19 17:00] LABS: BEDSIDE GLUCOSE 63 MG/DL (80-115)
[2017-12-19] MEDS: methylPREDNISolone INJ 125 MG/2 ML VIAL (J2930) IV (17:00)
[2017-12-19 17:14] LABS: INFLUENZA A AMPLIFICATION NEGATIVE (NEGATIVE); INFLUENZA B AMPLIFICATION NEGATIVE (NEGATIVE)
[2017-12-19 17:32] LABS: BASO # 0.1 10^3/uL (0.0-0.2); BASO % 0.7 % (0.0-1.0); EOS # 0.3 10^3/uL (0.0-0.50); EOS % 2.9 % (0.0-3.0); HEMATOCRIT 28.2 % (36.0-47.0); HEMOGLOBIN 8.8 g/dl (12.0-16.0); IMMATURE GRANULOCYTE % 0.4 % (0-0); LYMPH # 1.8 10^3/uL (1.5-4.5); LYMPH % 16.9 % (24.0-44.0); MEAN CORPUSCULAR HEMOGLOBIN 31.7 pg (27.0-33.0); MEAN CORPUSCULAR HGB CONC 31.2 g/dl (32.0-36.5); MEAN CORPUSCULAR VOLUME 101.4 fl (80.0-96.0); MONO # 0.5 10^3/uL (0.0-0.8); MONO % 4.7 % (0.0-5.0); NEUTROPHILS # 8.1 10^3/uL (1.8-7.7); NEUTROPHILS % 74.4 % (36.0-66.0); PLATELET COUNT, AUTOMATED 180 10^3/uL (150-450); RED BLOOD COUNT 2.78 10^6/uL (4.00-5.40); RED CELL DISTRIBUTION WIDTH 15.6 % (11.5-14.5); WHITE BLOOD COUNT 10.9 10^3/uL (4.0-10.0)
[2017-12-19 17:45] LABS: LACTIC ACID SEPSIS PROTOCOL 0.7 MMOL/L (0.4-2.0)
[2017-12-19 17:50] LABS: ANION GAP 13 MEQ/L (8-16); BLOOD UREA NITROGEN 43 MG/DL (7-18); CALCIUM LEVEL 8.1 MG/DL (8.8-10.2); CARBON DIOXIDE LEVEL 25 MEQ/L (21-32); CHLORIDE LEVEL 105 MEQ/L (98-107); CREATININE FOR GFR 6.57 MG/DL (0.55-1.30); GLOMERULAR FILTRATION RATE 6.7 (>45); GLUCOSE, FASTING 64 MG/DL (70-100); POTASSIUM SERUM 4.3 MEQ/L (3.5-5.1); SODIUM LEVEL 143 MEQ/L (136-145)
[2017-12-19 18:04] LABS: BEDSIDE GLUCOSE 79 MG/DL (80-115)
[2017-12-19] MEDS: MINOXIDIL 2.5 MG TAB PO (19:17)
[2017-12-19] MEDS: AZITHROMYCIN INJ 500 MG, VIAL MATE ADAPTER 1 EACH in D5W 250 ML IV (20:00)
[2017-12-19] MEDS: hydrALAZINE INJ 20 MG/ML VIAL IV (20:00)
[2017-12-19] MEDS: DOCUSATE SODIUM 100 MG CAP PO (21:00)
[2017-12-19] MEDS: SYMBICORT 160/4.5MCG INHALER 6GM INH (21:00)
[2017-12-19] MEDS: guaiFENesin ER 600 MG TAB PO (21:00)
[2017-12-19] MEDS: ESCITALOPRAM OXALATE 10 MG TAB (LEXAPRO) PO (21:00)
[2017-12-19] MEDS: VANCOMYCIN HCL 500 MG, VIAL MATE ADAPTER 1 EACH in D5W 250 ML IV (21:56)
[2017-12-19] MEDS ORDERED: SLF 3 ML SYR IV (23:45)
[2017-12-20] MEDS: PIPERACILLIN/TAZOBACTAM SOD 2.25 GM in APPROPRIATE DILUENT 1 EA IV ×4 (01:00→23:29)
[2017-12-20] MEDS: methylPREDNISolone INJ 125 MG/2 ML VIAL (J2930) IV ×3 (01:01→16:22)
[2017-12-20] MEDS: hydrALAZINE INJ 20 MG/ML VIAL IV ×4 (01:02→20:12)
[2017-12-20] MEDS: IPRATROPIUM 0.5MG/ALBUTEROL 2.5MG INH SOL UD 3ML (DUONEB)(J7620) NEB ×5 (02:00→20:00)
[2017-12-20] MEDS: HEPARIN SOD (PORCINE) 5000 UNITS/ML VIAL SC ×4 (04:53→20:13)
[2017-12-20] MEDS: LEVOTHYROXINE 137MCG TABLET (0.137MG) PO (04:53)
[2017-12-20] MEDS: SLF 3 ML SYR IV ×3 (04:56→20:17)
[2017-12-20 05:40] LABS: HEMATOCRIT 27.8 % (36.0-47.0); HEMOGLOBIN 8.6 g/dl (12.0-16.0); MEAN CORPUSCULAR HEMOGLOBIN 30.5 pg (27.0-33.0); MEAN CORPUSCULAR HGB CONC 30.9 g/dl (32.0-36.5); MEAN CORPUSCULAR VOLUME 98.6 fl (80.0-96.0); PLATELET COUNT, AUTOMATED 159 10^3/uL (150-450); RED BLOOD COUNT 2.82 10^6/uL (4.00-5.40); RED CELL DISTRIBUTION WIDTH 15.6 % (11.5-14.5); WHITE BLOOD COUNT 4.1 10^3/uL (4.0-10.0)
[2017-12-20 05:47] LABS: ADD MANUAL DIFFER YES; DIFF SLIDE NUMBER 88; POSITIVE MORPH POS FLAG
[2017-12-20 06:10] LABS: ALBUMIN 3.6 GM/DL (3.2-5.2); ALBUMIN/GLOBULIN RATIO 1.24 (1.00-1.93); ALKALINE PHOSPHATASE 61 U/L (45-117); ALT/SGPT 13 U/L (12-78); ANION GAP 12 MEQ/L (8-16); AST/SGOT 19 U/L (7-37); BILIRUBIN,DIRECT 0.2 MG/DL (0.0-0.2); BILIRUBIN,TOTAL 0.7 MG/DL (0.2-1.0); BLOOD UREA NITROGEN 53 MG/DL (7-18); CALCIUM LEVEL 7.9 MG/DL (8.8-10.2); CARBON DIOXIDE LEVEL 22 MEQ/L (21-32); CHLORIDE LEVEL 106 MEQ/L (98-107); CREATININE FOR GFR 6.93 MG/DL (0.55-1.30); GLOMERULAR FILTRATION RATE 6.3 (>45); GLUCOSE, FASTING 116 MG/DL (70-100); POTASSIUM SERUM 4.7 MEQ/L (3.5-5.1); SODIUM LEVEL 140 MEQ/L (136-145); TOTAL PROTEIN 6.5 GM/DL (6.4-8.2)
[2017-12-20 06:56] LABS: ANISOCYTOSIS 1+; ATYPICAL LYMPH 1 % (0-5); LYMPHOCYTES 17 % (16-52); NEUTROPHILS 82 % (35-75); OVALOCYTES 1+; PLATELET ESTIMATE NORMAL (NORMAL)
[2017-12-20] MEDS: SYMBICORT 160/4.5MCG INHALER 6GM INH ×2 (07:43→20:02)
[2017-12-20] MEDS: DOCUSATE SODIUM 100 MG CAP PO ×2 (07:59→20:12)
[2017-12-20] MEDS: ACETAMINOPHEN TAB 650MG DOSE (2X325MG) PO ×2 (08:49→15:20)
[2017-12-20] MEDS: guaiFENesin ER 600 MG TAB PO ×2 (08:49→20:17)
[2017-12-20] MEDS: LOSARTAN 50 MG TAB PO (08:49)
[2017-12-20] MEDS: ASPIRIN 81 MG ENTERIC TAB PO (08:49)
[2017-12-20 09:22] LABS: C REACTIVE PROTEIN QUANTITATIV 0.61 MG/DL (0.00-0.30)
[2017-12-20] MEDS: NICOTINE 7 MG/24 HR TRANSDERMAL TD (11:15)
[2017-12-20] MEDS: CHECK TO SEE IF PATIENT IS RECEIVING DIALYSIS TODAY AND REFER TO THE VANCOMYCIN ORDER XX (16:23)
[2017-12-20] MEDS: VANCOMYCIN HCL 500 MG in D5W MINI-BAG PLUS 100 ML IV (16:23)
[2017-12-20] MEDS: AZITHROMYCIN INJ 500 MG, VIAL MATE ADAPTER 1 EACH in D5W 250 ML IV ×2 (20:16→22:14)
[2017-12-20] MEDS: ESCITALOPRAM OXALATE 10 MG TAB (LEXAPRO) PO (20:17)
[2017-12-20] MEDS: LORazepam 1 MG TAB PO (20:17)
[2017-12-20] MEDS: methylPREDNISolone INJ 40 MG/1 ML VIAL (J2920) IV (23:29)
[2017-12-21] MEDS: ACETAMINOPHEN TAB 650MG DOSE (2X325MG) PO ×2 (00:22→08:28)
[2017-12-21] MEDS: hydrALAZINE INJ 20 MG/ML VIAL IV ×2 (01:47→08:00)
[2017-12-21] MEDS: IPRATROPIUM 0.5MG/ALBUTEROL 2.5MG INH SOL UD 3ML (DUONEB)(J7620) NEB ×4 (02:42→20:00)
[2017-12-21] MEDS: LEVOTHYROXINE 137MCG TABLET (0.137MG) PO (05:26)
[2017-12-21] MEDS: SLF 3 ML SYR IV ×3 (05:27→22:00)
[2017-12-21] MEDS: HEPARIN SOD (PORCINE) 5000 UNITS/ML VIAL SC ×4 (05:27→21:54)
[2017-12-21 05:48] LABS: HEMATOCRIT 25.9 % (36.0-47.0); HEMOGLOBIN 8.2 g/dl (12.0-16.0); IMMATURE GRANULOCYTE % 0.2 % (0-0); LYMPH # 0.5 10^3/uL (1.5-4.5); LYMPH % 9.7 % (24.0-44.0); MEAN CORPUSCULAR HEMOGLOBIN 31.1 pg (27.0-33.0); MEAN CORPUSCULAR HGB CONC 31.7 g/dl (32.0-36.5); MEAN CORPUSCULAR VOLUME 98.1 fl (80.0-96.0); MONO # 0.1 10^3/uL (0.0-0.8); MONO % 1.7 % (0.0-5.0); NEUTROPHILS # 4.7 10^3/uL (1.8-7.7); NEUTROPHILS % 88.4 % (36.0-66.0); PLATELET COUNT, AUTOMATED 146 10^3/uL (150-450); RED BLOOD COUNT 2.64 10^6/uL (4.00-5.40); RED CELL DISTRIBUTION WIDTH 15.5 % (11.5-14.5); WHITE BLOOD COUNT 5.4 10^3/uL (4.0-10.0)
[2017-12-21 06:00] LABS: ANION GAP 8 MEQ/L (8-16); BLOOD UREA NITROGEN 30 MG/DL (7-18); CALCIUM LEVEL 7.8 MG/DL (8.8-10.2); CARBON DIOXIDE LEVEL 28 MEQ/L (21-32); CHLORIDE LEVEL 101 MEQ/L (98-107); CREATININE FOR GFR 4.01 MG/DL (0.55-1.30); GLOMERULAR FILTRATION RATE 11.8 (>45); GLUCOSE, FASTING 114 MG/DL (70-100); MAGNESIUM LEVEL 1.9 MG/DL (1.8-2.4); POTASSIUM SERUM 3.5 MEQ/L (3.5-5.1); SODIUM LEVEL 137 MEQ/L (136-145); VANCOMYCIN RANDOM 15.8 UG/ML
[2017-12-21] MEDS: SYMBICORT 160/4.5MCG INHALER 6GM INH ×2 (08:18→21:00)
[2017-12-21] MEDS: NICOTINE 7 MG/24 HR TRANSDERMAL TD (08:29)
[2017-12-21] MEDS: LOSARTAN 50 MG TAB PO (08:29)
[2017-12-21] MEDS: guaiFENesin ER 600 MG TAB PO ×2 (08:29→21:48)
[2017-12-21] MEDS: DOCUSATE SODIUM 100 MG CAP PO ×2 (08:29→20:36)
[2017-12-21] MEDS: CEFTRIAXONE SOD 1 GM in APPROPRIATE DILUENT 1 EA IV (08:32)
[2017-12-21] MEDS: methylPREDNISolone INJ 40 MG/1 ML VIAL (J2920) IV (12:16)
[2017-12-21] MEDS ORDERED: methylPREDNISolone INJ 40 MG/1 ML VIAL (J2920) IV (13:00)
[2017-12-21] MEDS: CHECK TO SEE IF PATIENT IS RECEIVING DIALYSIS TODAY AND REFER TO THE VANCOMYCIN ORDER XX (16:00)
[2017-12-21] MEDS ORDERED: DARBEPOETIN 100 MCG/0.5 ML *DIALYSIS* SYRINGE (J0882) IV (20:15)
[2017-12-21] MEDS: AZITHROMYCIN INJ 500 MG, VIAL MATE ADAPTER 1 EACH in D5W 250 ML IV (20:33)
[2017-12-21] MEDS: ONDANSETRON 4MG/2ML VIAL (J2405) IV (21:47)
[2017-12-21] MEDS: ESCITALOPRAM OXALATE 10 MG TAB (LEXAPRO) PO (21:48)
[2017-12-21] MEDS: LORazepam 1 MG TAB PO (21:48)
[2017-12-22] MEDS: methylPREDNISolone INJ 40 MG/1 ML VIAL (J2920) IV (01:05)
[2017-12-22] MEDS: IPRATROPIUM 0.5MG/ALBUTEROL 2.5MG INH SOL UD 3ML (DUONEB)(J7620) NEB ×4 (02:00→20:00)
[2017-12-22] MEDS: NICOTINE 7 MG/24 HR TRANSDERMAL TD (05:38)
[2017-12-22] MEDS: DOCUSATE SODIUM 100 MG CAP PO ×2 (05:39→21:36)
[2017-12-22] MEDS: guaiFENesin ER 600 MG TAB PO ×2 (05:39→21:37)
[2017-12-22] MEDS: ESCITALOPRAM OXALATE 10 MG TAB (LEXAPRO) PO (05:39)
[2017-12-22] MEDS: HEPARIN SOD (PORCINE) 5000 UNITS/ML VIAL SC ×3 (05:40→21:36)
[2017-12-22] MEDS: LOSARTAN 50 MG TAB PO (05:40)
[2017-12-22] MEDS: ASPIRIN 81 MG ENTERIC TAB PO (05:40)
[2017-12-22] MEDS: LEVOTHYROXINE 137MCG TABLET (0.137MG) PO (05:40)
[2017-12-22] MEDS: SLF 3 ML SYR IV ×3 (05:41→21:49)
[2017-12-22] MEDS: CEFTRIAXONE SOD 1 GM in APPROPRIATE DILUENT 1 EA IV (05:41)
[2017-12-22 05:57] LABS: EOS % 0.2 % (0.0-3.0); HEMOGLOBIN 7.8 g/dl (12.0-16.0); IMMATURE GRANULOCYTE % 0.5 % (0-0); LYMPH # 0.5 10^3/uL (1.5-4.5); MEAN CORPUSCULAR HGB CONC 31.2 g/dl (32.0-36.5); MEAN CORPUSCULAR VOLUME 99.2 fl (80.0-96.0); MONO # 0.1 10^3/uL (0.0-0.8); MONO % 1.6 % (0.0-5.0); NEUTROPHILS # 5.5 10^3/uL (1.8-7.7); NEUTROPHILS % 89.7 % (36.0-66.0); PLATELET COUNT, AUTOMATED 143 10^3/uL (150-450); RED BLOOD COUNT 2.52 10^6/uL (4.00-5.40); RED CELL DISTRIBUTION WIDTH 15.8 % (11.5-14.5); WHITE BLOOD COUNT 6.2 10^3/uL (4.0-10.0)
[2017-12-22 06:20] LABS: ANION GAP 13 MEQ/L (8-16); BLOOD UREA NITROGEN 43 MG/DL (7-18); C REACTIVE PROTEIN QUANTITATIV < 0.30 MG/DL (0.00-0.30); CALCIUM LEVEL 7.5 MG/DL (8.8-10.2); CARBON DIOXIDE LEVEL 26 MEQ/L (21-32); CHLORIDE LEVEL 98 MEQ/L (98-107); GLOMERULAR FILTRATION RATE 8.5 (>45); GLUCOSE, FASTING 89 MG/DL (70-100); MAGNESIUM LEVEL 1.9 MG/DL (1.8-2.4); POTASSIUM SERUM 3.6 MEQ/L (3.5-5.1); SODIUM LEVEL 137 MEQ/L (136-145)
[2017-12-22] MEDS: SYMBICORT 160/4.5MCG INHALER 6GM INH ×2 (07:58→20:13)
[2017-12-22 08:01] LABS: RETIC HEMOGLOBIN EQUIVALENT 33.9 pg (24-36); RETICULOCYTE # 24.8 10^9/L (17-77); RETICULOCYTE % 0.9 % (0.5-1.5)
[2017-12-22] MEDS: predniSONE 20 MG TAB PO (08:25)
[2017-12-22 08:34] LABS: FERRITIN 1425 NG/ML (8-252); IRON (FE) 110 UG/DL (50-170); PERCENT SATURATION 56.4 % (13.2-45.0); TOTAL IRON BINDING CAPACITY 195 UG/DL (250-450)
[2017-12-22 09:35] LABS: FOLATE 21.2 NG/ML (>5.4); VITAMIN B12 LEVEL 762 PG/ML (247-911)
[2017-12-22] MEDS: CHECK TO SEE IF PATIENT IS RECEIVING DIALYSIS TODAY AND REFER TO THE VANCOMYCIN ORDER XX (15:43)
[2017-12-22] MEDS: LORazepam 1 MG TAB PO (21:36)
[2017-12-23] MEDS: IPRATROPIUM 0.5MG/ALBUTEROL 2.5MG INH SOL UD 3ML (DUONEB)(J7620) NEB ×4 (01:09→20:00)
[2017-12-23] MEDS: HEPARIN SOD (PORCINE) 5000 UNITS/ML VIAL SC ×4 (05:26→22:00)
[2017-12-23] MEDS: DOCUSATE SODIUM 100 MG CAP PO ×2 (06:12→21:58)
[2017-12-23] MEDS: guaiFENesin ER 600 MG TAB PO ×2 (06:13→21:58)
[2017-12-23] MEDS: predniSONE 20 MG TAB PO (06:13)
[2017-12-23] MEDS: LEVOTHYROXINE 137MCG TABLET (0.137MG) PO (06:13)
[2017-12-23] MEDS: SLF 3 ML SYR IV ×3 (06:14→21:59)
[2017-12-23] MEDS: NICOTINE 7 MG/24 HR TRANSDERMAL TD (06:14)
[2017-12-23] MEDS: LOSARTAN 50 MG TAB PO (06:18)
[2017-12-23 06:40] LABS: BASO % 0.1 % (0.0-1.0); EOS % 0.4 % (0.0-3.0); HEMATOCRIT 27.5 % (36.0-47.0); HEMOGLOBIN 8.7 g/dl (12.0-16.0); IMMATURE GRANULOCYTE % 0.4 % (0-0); LYMPH # 1.6 10^3/uL (1.5-4.5); MEAN CORPUSCULAR HEMOGLOBIN 31.3 pg (27.0-33.0); MEAN CORPUSCULAR HGB CONC 31.6 g/dl (32.0-36.5); MEAN CORPUSCULAR VOLUME 98.9 fl (80.0-96.0); MONO # 0.5 10^3/uL (0.0-0.8); MONO % 6.4 % (0.0-5.0); NEUTROPHILS % 73.7 % (36.0-66.0); PLATELET COUNT, AUTOMATED 166 10^3/uL (150-450); RED BLOOD COUNT 2.78 10^6/uL (4.00-5.40); RED CELL DISTRIBUTION WIDTH 15.5 % (11.5-14.5); WHITE BLOOD COUNT 8.2 10^3/uL (4.0-10.0)
[2017-12-23 07:06] LABS: ANION GAP 12 MEQ/L (8-16); BLOOD UREA NITROGEN 57 MG/DL (7-18); C REACTIVE PROTEIN QUANTITATIV < 0.30 MG/DL (0.00-0.30); CALCIUM LEVEL 6.8 MG/DL (8.8-10.2); CARBON DIOXIDE LEVEL 23 MEQ/L (21-32); CHLORIDE LEVEL 101 MEQ/L (98-107); CREATININE FOR GFR 6.54 MG/DL (0.55-1.30); GLOMERULAR FILTRATION RATE 6.7 (>45); GLUCOSE, FASTING 82 MG/DL (70-100); MAGNESIUM LEVEL 1.8 MG/DL (1.8-2.4); POTASSIUM SERUM 3.4 MEQ/L (3.5-5.1); SODIUM LEVEL 136 MEQ/L (136-145)
[2017-12-23] MEDS: SYMBICORT 160/4.5MCG INHALER 6GM INH ×2 (07:45→21:39)
[2017-12-23] MEDS: LIDOCAINE 1% SDV 5 ML VIAL SQ (11:45)
[2017-12-23] MEDS: LevoFLOXacin 250 MG TABLET PO (18:06)
[2017-12-23] MEDS: ESCITALOPRAM OXALATE 10 MG TAB (LEXAPRO) PO (21:58)
[2017-12-23] MEDS: LORazepam 1 MG TAB PO (22:02)
[2017-12-24] MEDS: IPRATROPIUM 0.5MG/ALBUTEROL 2.5MG INH SOL UD 3ML (DUONEB)(J7620) NEB ×2 (02:00→08:00)
[2017-12-24] MEDS: HEPARIN SOD (PORCINE) 5000 UNITS/ML VIAL SC (05:07)
[2017-12-24] MEDS: LEVOTHYROXINE 137MCG TABLET (0.137MG) PO (05:54)
[2017-12-24] MEDS: **hydrALAZINE HCL** 25 MG TAB PO (05:58)
[2017-12-24] MEDS: SLF 3 ML SYR IV (05:59)
[2017-12-24 06:08] LABS: EOS # 0.2 10^3/uL (0.0-0.50); EOS % 2.6 % (0.0-3.0); HEMOGLOBIN 8.2 g/dl (12.0-16.0); IMMATURE GRANULOCYTE % 0.3 % (0-0); LYMPH # 1.7 10^3/uL (1.5-4.5); LYMPH % 26.9 % (24.0-44.0); MEAN CORPUSCULAR HEMOGLOBIN 31.2 pg (27.0-33.0); MEAN CORPUSCULAR HGB CONC 31.5 g/dl (32.0-36.5); MEAN CORPUSCULAR VOLUME 98.9 fl (80.0-96.0); MONO # 0.4 10^3/uL (0.0-0.8); MONO % 5.8 % (0.0-5.0); NEUTROPHILS % 64.4 % (36.0-66.0); PLATELET COUNT, AUTOMATED 126 10^3/uL (150-450); RED BLOOD COUNT 2.63 10^6/uL (4.00-5.40); RED CELL DISTRIBUTION WIDTH 15.5 % (11.5-14.5); WHITE BLOOD COUNT 6.2 10^3/uL (4.0-10.0)
[2017-12-24 06:24] LABS: ANION GAP 10 MEQ/L (8-16); BLOOD UREA NITROGEN 27 MG/DL (7-18); C REACTIVE PROTEIN QUANTITATIV < 0.30 MG/DL (0.00-0.30); CARBON DIOXIDE LEVEL 28 MEQ/L (21-32); CHLORIDE LEVEL 104 MEQ/L (98-107); CREATININE FOR GFR 3.45 MG/DL (0.55-1.30); GLUCOSE, FASTING 73 MG/DL (70-100); MAGNESIUM LEVEL 1.8 MG/DL (1.8-2.4); POTASSIUM SERUM 3.4 MEQ/L (3.5-5.1); SODIUM LEVEL 142 MEQ/L (136-145)
[2017-12-24] MEDS: POTASSIUM CHLORIDE 10 MEQ SR TABLET PO (07:54)
[2017-12-24] MEDS: SYMBICORT 160/4.5MCG INHALER 6GM INH (08:39)
[2017-12-24] MEDS: NICOTINE 7 MG/24 HR TRANSDERMAL TD (10:08)
[2017-12-24] MEDS: predniSONE 20 MG TAB PO (10:09)
[2017-12-24] MEDS: LOSARTAN 50 MG TAB PO (10:10)
[2017-12-24] MEDS: guaiFENesin ER 600 MG TAB PO (10:10)
[2017-12-24] MEDS: DOCUSATE SODIUM 100 MG CAP PO (10:10)
[2017-12-24] MEDS: ASPIRIN 81 MG ENTERIC TAB PO (10:10)
== END 2017-12-24 13:07 | disposition home health service (06) | DRG 177 ==
LOC: M MSPAV 12-21 14:32 → M ED 13:53 → M ED INP 19:14 → M PCU 23:04
PROC: 5A1D70Z Performance of Urinary Filtration, Intermittent, Less than 6 Hours Per Day (ICD-10-PCS; principal; 2017-12-20)
DX: J15.6 Pneumonia due to other Gram-negative bacteria (principal); J96.21 Acute and chronic respiratory failure with hypoxia; N18.6 End stage renal disease; R64 Cachexia; I50.32 Chronic diastolic (congestive) heart failure; J44.1 Chronic obstructive pulmonary disease with (acute) exacerbation; Q44.6 Cystic disease of liver; Q61.3 Polycystic kidney, unspecified; F41.9 Anxiety disorder, unspecified; F32.9 Major depressive disorder, single episode, unspecified; M54.5 Low back pain; I16.0 Hypertensive urgency; D63.1 Anemia in chronic kidney disease; I27.20 Pulmonary hypertension, unspecified; Z79.899 Other long term (current) drug therapy; Z79.82 Long term (current) use of aspirin; Z88.5 Allergy status to narcotic agent; K57.30 Diverticulosis of large intestine without perforation or abscess without bleeding; F17.210 Nicotine dependence, cigarettes, uncomplicated; K64.8 Other hemorrhoids; E78.5 Hyperlipidemia, unspecified; Z88.8 Allergy status to other drugs, medicaments and biological substances; Z99.81 Dependence on supplemental oxygen; E87.6 Hypokalemia

== ENCOUNTER 2018-01-14 14:45 | Inpatient (IN) | payer MEDICARE, MEDICAID ==
[2018-01-14] MEDS: IPRATROPIUM 0.5MG/ALBUTEROL 2.5MG INH SOL UD 3ML (DUONEB)(J7620) NEB ×4 (16:04→23:23)
[2018-01-14 16:20] LABS: BASO # 0.1 10^3/uL (0.0-0.2); BASO % 0.9 % (0.0-1.0); EOS # 0.2 10^3/uL (0.0-0.50); EOS % 4.3 % (0.0-3.0); HEMATOCRIT 29.2 % (36.0-47.0); IMMATURE GRANULOCYTE % 0.4 % (0-3.0); LYMPH # 0.9 10^3/uL (1.5-4.5); LYMPH % 16.7 % (24.0-44.0); MEAN CORPUSCULAR HEMOGLOBIN 31.4 pg (27.0-33.0); MEAN CORPUSCULAR HGB CONC 30.8 g/dl (32.0-36.5); MEAN CORPUSCULAR VOLUME 101.7 fl (80.0-96.0); MONO # 0.4 10^3/uL (0.0-0.8); MONO % 6.2 % (0.0-5.0); NEUTROPHILS % 71.5 % (36.0-66.0); PLATELET COUNT, AUTOMATED 152 10^3/uL (150-450); RED BLOOD COUNT 2.87 10^6/uL (4.00-5.40); RED CELL DISTRIBUTION WIDTH 16.7 % (11.5-14.5); WHITE BLOOD COUNT 5.6 10^3/uL (4.0-10.0)
[2018-01-14 16:41] LABS: INR 1.12; PROTHROMBIN TIME 14.6 SECONDS (12.4-14.5)
[2018-01-14 16:44] LABS: LACTIC ACID SEPSIS PROTOCOL 0.8 MMOL/L (0.4-2.0)
[2018-01-14 16:45] LABS: ALBUMIN 3.5 GM/DL (3.2-5.2); ALBUMIN/GLOBULIN RATIO 1.46 (1.00-1.93); ALKALINE PHOSPHATASE 56 U/L (45-117); ALT/SGPT 18 U/L (12-78); ANION GAP 10 MEQ/L (8-16); AST/SGOT 18 U/L (7-37); BILIRUBIN,DIRECT 0.2 MG/DL (0.0-0.2); BILIRUBIN,TOTAL 0.6 MG/DL (0.2-1.0); BLOOD UREA NITROGEN 31 MG/DL (7-18); CALCIUM LEVEL 8.4 MG/DL (8.8-10.2); CARBON DIOXIDE LEVEL 28 MEQ/L (21-32); CHLORIDE LEVEL 105 MEQ/L (98-107); CPK CREATINE PHOSPHOKINASE 47 U/L (26-192); CREATININE FOR GFR 3.65 MG/DL (0.55-1.30); GLOMERULAR FILTRATION RATE 13.1 (>45); GLUCOSE, FASTING 63 MG/DL (70-100); POTASSIUM SERUM 3.9 MEQ/L (3.5-5.1); SODIUM LEVEL 143 MEQ/L (136-145); TOTAL PROTEIN 5.9 GM/DL (6.4-8.2); TROPONIN I 0.04 NG/ML (< 0.10)
[2018-01-14 16:50] LABS: CK-MB VALUE MASS 5.1 NG/ML (0.0-3.6); MB/CK RELATIVE INDEX 10.85 (< OR =4); NT-PRO BNP 33508 PG/ML (<125)
[2018-01-14] MEDS: ALBUTEROL SULFATE 2.5 MG/0.5 ML INH NEB SOLN NEB (18:30)
[2018-01-14] MEDS: predniSONE 20 MG TAB PO (20:06)
[2018-01-14] MEDS: SYMBICORT 160/4.5MCG INHALER 6GM INH (21:00)
[2018-01-14] MEDS ORDERED: ESCITALOPRAM OXALATE 10 MG TAB (LEXAPRO) PO (21:00)
[2018-01-14] MEDS ORDERED: ALBUTEROL SULFATE 2.5 MG/0.5 ML INH NEB SOLN INH (21:00)
[2018-01-15 00:48] LABS: ABG HCO3 26.1 MEQ/L (22.0-26.0); ABG O2 SATURATION 90.1 % (95.0-99.0); ABG PARTIAL PRESSURE CO2 43.5 mmHg (35.0-45.0); ABG PARTIAL PRESSURE O2 58.4 mmHg (75.0-100.0); ABG STANDARD HCO3 25.3 MEQ/L (22.0-26.0); ABG TOTAL CO2 27.4 MEQ/L (23.0-31.0); ABG pH (ARTERIAL) 7.396 UNITS (7.350-7.450)
[2018-01-15] MEDS: ESCITALOPRAM OXALATE 10 MG TAB (LEXAPRO) PO ×2 (01:06→21:39)
[2018-01-15] MEDS: methylPREDNISolone INJ 125 MG/2 ML VIAL (J2930) IV ×4 (01:06→23:30)
[2018-01-15] MEDS: LORazepam 1 MG TAB PO ×3 (01:40→21:43)
[2018-01-15] MEDS: IPRATROPIUM 0.5MG/ALBUTEROL 2.5MG INH SOL UD 3ML (DUONEB)(J7620) NEB ×6 (04:00→23:34)
[2018-01-15] MEDS ORDERED: amLODIPine 5 MG TAB As Ordered (05:44)
[2018-01-15 05:46] LABS: ANION GAP 13 MEQ/L (8-16); BLOOD UREA NITROGEN 39 MG/DL (7-18); CALCIUM LEVEL 8.7 MG/DL (8.8-10.2); CARBON DIOXIDE LEVEL 25 MEQ/L (21-32); CHLORIDE LEVEL 104 MEQ/L (98-107); CREATININE FOR GFR 4.46 MG/DL (0.55-1.30); GLOMERULAR FILTRATION RATE 10.4 (>45); GLUCOSE, FASTING 98 MG/DL (70-100); HEMATOCRIT 29.7 % (36.0-47.0); HEMOGLOBIN 9.4 g/dl (12.0-16.0); MAGNESIUM LEVEL 2.3 MG/DL (1.8-2.4); MEAN CORPUSCULAR HGB CONC 31.6 g/dl (32.0-36.5); PLATELET COUNT, AUTOMATED 160 10^3/uL (150-450); POTASSIUM SERUM 4.1 MEQ/L (3.5-5.1); RED BLOOD COUNT 2.94 10^6/uL (4.00-5.40); RED CELL DISTRIBUTION WIDTH 16.5 % (11.5-14.5); SODIUM LEVEL 142 MEQ/L (136-145); WHITE BLOOD COUNT 3.7 10^3/uL (4.0-10.0)
[2018-01-15] MEDS: LEVOTHYROXINE 137MCG TABLET (0.137MG) PO (05:54)
[2018-01-15] MEDS: amLODIPine 5 MG TAB PO ×2 (05:54→21:43)
[2018-01-15] MEDS ORDERED: ACETAMINOPHEN TAB 650MG DOSE (2X325MG) As Ordered (05:55)
[2018-01-15] MEDS: HEPARIN SOD (PORCINE) 5000 UNITS/ML VIAL SQ ×3 (05:55→21:44)
[2018-01-15] MEDS ORDERED: ACETAMINOPHEN 325 MG TAB As Ordered (05:59)
[2018-01-15] MEDS: ACETAMINOPHEN 325 MG TAB PO (06:05)
[2018-01-15] MEDS: SYMBICORT 160/4.5MCG INHALER 6GM INH ×2 (07:39→20:12)
[2018-01-15] MEDS: LOSARTAN 50 MG TAB PO (08:49)
[2018-01-15] MEDS: NICOTINE 7 MG/24 HR TRANSDERMAL TD (08:49)
[2018-01-15] MEDS: CALCIUM ACETATE 667 MG GELCAP PO (08:49)
[2018-01-15] MEDS: ASPIRIN 81 MG ENTERIC TAB PO (08:50)
[2018-01-16] MEDS: IPRATROPIUM 0.5MG/ALBUTEROL 2.5MG INH SOL UD 3ML (DUONEB)(J7620) NEB ×5 (03:02→20:00)
[2018-01-16] MEDS: LEVOTHYROXINE 137MCG TABLET (0.137MG) PO (05:20)
[2018-01-16] MEDS: HEPARIN SOD (PORCINE) 5000 UNITS/ML VIAL SQ ×3 (05:22→21:07)
[2018-01-16 05:35] LABS: HEMATOCRIT 26.6 % (36.0-47.0); HEMOGLOBIN 8.3 g/dl (12.0-16.0); MEAN CORPUSCULAR HGB CONC 31.2 g/dl (32.0-36.5); MEAN CORPUSCULAR VOLUME 99.3 fl (80.0-96.0); PLATELET COUNT, AUTOMATED 142 10^3/uL (150-450); RED BLOOD COUNT 2.68 10^6/uL (4.00-5.40); WHITE BLOOD COUNT 5.3 10^3/uL (4.0-10.0)
[2018-01-16 05:52] LABS: ANION GAP 11 MEQ/L (8-16); CALCIUM LEVEL 7.8 MG/DL (8.8-10.2); CARBON DIOXIDE LEVEL 24 MEQ/L (21-32); CHLORIDE LEVEL 104 MEQ/L (98-107); GLOMERULAR FILTRATION RATE 8.5 (>45); GLUCOSE, FASTING 135 MG/DL (70-100); MAGNESIUM LEVEL 2.1 MG/DL (1.8-2.4); POTASSIUM SERUM 3.8 MEQ/L (3.5-5.1); SODIUM LEVEL 139 MEQ/L (136-145)
[2018-01-16 06:01] LABS: BLOOD UREA NITROGEN 62 MG/DL (7-18)
[2018-01-16] MEDS: methylPREDNISolone INJ 125 MG/2 ML VIAL (J2930) IV ×2 (08:00→19:55)
[2018-01-16] MEDS: ASPIRIN 81 MG ENTERIC TAB PO (08:00)
[2018-01-16] MEDS: NICOTINE 7 MG/24 HR TRANSDERMAL TD (08:00)
[2018-01-16] MEDS: CALCIUM ACETATE 667 MG GELCAP PO (08:00)
[2018-01-16] MEDS: LOSARTAN 50 MG TAB PO (08:02)
[2018-01-16] MEDS: amLODIPine 5 MG TAB PO ×2 (08:03→21:07)
[2018-01-16] MEDS: SYMBICORT 160/4.5MCG INHALER 6GM INH ×2 (08:15→20:52)
[2018-01-16] MEDS ORDERED: SLF 3 ML SYR IV (11:00)
[2018-01-16] MEDS: SLF 3 ML SYR IV ×2 (13:38→21:07)
[2018-01-16] MEDS: ACETAMINOPHEN 325 MG TAB PO (17:16)
[2018-01-16] MEDS: ESCITALOPRAM OXALATE 10 MG TAB (LEXAPRO) PO (21:06)
[2018-01-16] MEDS: LORazepam 1 MG TAB PO (21:06)
[2018-01-17] MEDS: IPRATROPIUM 0.5MG/ALBUTEROL 2.5MG INH SOL UD 3ML (DUONEB)(J7620) NEB ×4 (03:32→11:37)
[2018-01-17] MEDS: SLF 3 ML SYR IV (05:40)
[2018-01-17] MEDS: LEVOTHYROXINE 137MCG TABLET (0.137MG) PO (05:40)
[2018-01-17] MEDS: HEPARIN SOD (PORCINE) 5000 UNITS/ML VIAL SQ (05:40)
[2018-01-17 06:13] LABS: HEMATOCRIT 27.9 % (36.0-47.0); HEMOGLOBIN 8.9 g/dl (12.0-16.0); MEAN CORPUSCULAR HEMOGLOBIN 31.6 pg (27.0-33.0); MEAN CORPUSCULAR HGB CONC 31.9 g/dl (32.0-36.5); MEAN CORPUSCULAR VOLUME 98.9 fl (80.0-96.0); PLATELET COUNT, AUTOMATED 151 10^3/uL (150-450); RED BLOOD COUNT 2.82 10^6/uL (4.00-5.40); RED CELL DISTRIBUTION WIDTH 15.9 % (11.5-14.5); WHITE BLOOD COUNT 4.8 10^3/uL (4.0-10.0)
[2018-01-17 06:34] LABS: ANION GAP 9 MEQ/L (8-16); BLOOD UREA NITROGEN 33 MG/DL (7-18); CALCIUM LEVEL 8.4 MG/DL (8.8-10.2); CARBON DIOXIDE LEVEL 28 MEQ/L (21-32); CHLORIDE LEVEL 103 MEQ/L (98-107); CREATININE FOR GFR 2.97 MG/DL (0.55-1.30); GLOMERULAR FILTRATION RATE 16.7 (>45); GLUCOSE, FASTING 100 MG/DL (70-100); MAGNESIUM LEVEL 1.9 MG/DL (1.8-2.4); POTASSIUM SERUM 3.5 MEQ/L (3.5-5.1); SODIUM LEVEL 140 MEQ/L (136-145)
[2018-01-17] MEDS: SYMBICORT 160/4.5MCG INHALER 6GM INH (08:07)
[2018-01-17] MEDS ORDERED: CEFDINIR 300 MG CAP (OMNICEF) PO (09:00)
[2018-01-17] MEDS ORDERED: CEPHALEXIN 250 MG CAP PO (09:00)
[2018-01-17] MEDS: predniSONE 20 MG TAB PO (09:21)
[2018-01-17] MEDS: ASPIRIN 81 MG ENTERIC TAB PO (09:21)
[2018-01-17] MEDS: NICOTINE 7 MG/24 HR TRANSDERMAL TD (09:21)
[2018-01-17] MEDS: amLODIPine 5 MG TAB PO (09:21)
[2018-01-17] MEDS: CALCIUM ACETATE 667 MG GELCAP PO (09:21)
[2018-01-17] MEDS: LOSARTAN 50 MG TAB PO (09:22)
[2018-01-17] MEDS: CEPHALEXIN 250 MG CAP PO (10:49)
[2018-01-18] MEDS ORDERED: CEPHALEXIN 250 MG CAP PO (16:00)
== END 2018-01-17 12:54 | disposition home health service (06) | DRG 190 ==
LOC: M ED 14:45 → M ED INP 20:46 → M PCU 23:53
DX: J44.1 Chronic obstructive pulmonary disease with (acute) exacerbation (principal); N18.6 End stage renal disease; I50.32 Chronic diastolic (congestive) heart failure; Q61.3 Polycystic kidney, unspecified; Q44.6 Cystic disease of liver; I13.2 Hypertensive heart and chronic kidney disease with heart failure and with stage 5 chronic kidney disease, or end stage renal disease; R62.7 Adult failure to thrive; I27.20 Pulmonary hypertension, unspecified; I16.0 Hypertensive urgency; E03.9 Hypothyroidism, unspecified; F32.9 Major depressive disorder, single episode, unspecified; D63.1 Anemia in chronic kidney disease; Z79.899 Other long term (current) drug therapy; Z88.5 Allergy status to narcotic agent; Z88.8 Allergy status to other drugs, medicaments and biological substances; F17.200 Nicotine dependence, unspecified, uncomplicated; Z79.82 Long term (current) use of aspirin; F41.9 Anxiety disorder, unspecified; E78.5 Hyperlipidemia, unspecified; Z99.81 Dependence on supplemental oxygen

== ENCOUNTER 2018-02-03 15:02 | Inpatient (IN) | payer MEDICARE, MEDICAID ==
[2018-02-03] MEDS: IPRATROPIUM 0.5MG/ALBUTEROL 2.5MG INH SOL UD 3ML (DUONEB)(J7620) NEB ×4 (16:05→19:54)
[2018-02-03] MEDS: methylPREDNISolone INJ 125 MG/2 ML VIAL (J2930) IV ×2 (16:06→23:33)
[2018-02-03 16:34] LABS: ABG HCO3 24.3 MEQ/L (22.0-26.0); ABG O2 SATURATION 99.4 % (95.0-99.0); ABG PARTIAL PRESSURE CO2 55.5 mmHg (35.0-45.0); ABG PARTIAL PRESSURE O2 200.2 mmHg (75.0-100.0); ABG pH (ARTERIAL) 7.259 UNITS (7.350-7.450)
[2018-02-03 16:43] LABS: BASO # 0.1 10^3/uL (0.0-0.2); BASO % 0.4 % (0.0-1.0); EOS # 0.3 10^3/uL (0.0-0.50); EOS % 2.2 % (0.0-3.0); HEMATOCRIT 26.4 % (36.0-47.0); HEMOGLOBIN 8.2 g/dl (12.0-16.0); IMMATURE GRANULOCYTE % 0.4 % (0-3.0); LYMPH # 1.1 10^3/uL (1.5-4.5); LYMPH % 9.7 % (24.0-44.0); MEAN CORPUSCULAR HEMOGLOBIN 31.7 pg (27.0-33.0); MEAN CORPUSCULAR HGB CONC 31.1 g/dl (32.0-36.5); MEAN CORPUSCULAR VOLUME 101.9 fl (80.0-96.0); MONO # 0.6 10^3/uL (0.0-0.8); MONO % 5.1 % (0.0-5.0); NEUTROPHILS # 9.3 10^3/uL (1.8-7.7); NEUTROPHILS % 82.2 % (36.0-66.0); PLATELET COUNT, AUTOMATED 195 10^3/uL (150-450); RED BLOOD COUNT 2.59 10^6/uL (4.00-5.40); RED CELL DISTRIBUTION WIDTH 15.7 % (11.5-14.5); WHITE BLOOD COUNT 11.3 10^3/uL (4.0-10.0)
[2018-02-03 17:20] LABS: ANION GAP 13 MEQ/L (8-16); BLOOD UREA NITROGEN 30 MG/DL (7-18); CALCIUM LEVEL 8.5 MG/DL (8.8-10.2); CARBON DIOXIDE LEVEL 26 MEQ/L (21-32); CHLORIDE LEVEL 102 MEQ/L (98-107); CREATININE FOR GFR 4.94 MG/DL (0.55-1.30); GLOMERULAR FILTRATION RATE 9.3 (>45); GLUCOSE, FASTING 68 MG/DL (70-100); POTASSIUM SERUM 3.9 MEQ/L (3.5-5.1); SODIUM LEVEL 141 MEQ/L (136-145)
[2018-02-03] MEDS: DEXTROSE 50% 50 ML SYRINGE IV (17:31)
[2018-02-03] MEDS ORDERED: DEXTROSE 50% 50 ML SYRINGE IV (18:00)
[2018-02-03] MEDS ORDERED: GLUCAGON FOR INJ 1 MG VIAL (J1610) SC (18:00)
[2018-02-03] MEDS ORDERED: ONDANSETRON 4MG/2ML VIAL (J2405) IV (18:00)
[2018-02-03] MEDS ORDERED: ACETAMINOPHEN TAB 650MG DOSE (2X325MG) PO (18:00)
[2018-02-03] MEDS ORDERED: ALBUTEROL SULFATE 2.5 MG/0.5 ML INH NEB SOLN INH (18:00)
[2018-02-03] MEDS ORDERED: GLUCOSE 4 GM CHEW TABLET PO (18:00)
[2018-02-03] MEDS ORDERED: NICOTINE 7 MG/24 HR TRANSDERMAL TD (18:45)
[2018-02-03] MEDS: VANCOMYCIN HCL 1,000 MG, VIAL MATE ADAPTER 1 EACH in D5W 250 ML IV (19:12)
[2018-02-03] MEDS: AZITHROMYCIN 250 MG TAB PO (20:37)
[2018-02-03] MEDS: PIPERACILLIN/TAZOBACTAM SOD 3.375 GM in APPROPRIATE DILUENT 1 EA IV (20:38)
[2018-02-03] MEDS: HEPARIN SOD (PORCINE) 5000 UNITS/ML VIAL SC (20:38)
[2018-02-03 22:45] LABS: ABG BASE EXCESS -1.8 (-2.0-2.0); ABG HCO3 23.6 MEQ/L (22.0-26.0); ABG O2 SATURATION 98.2 % (95.0-99.0); ABG PARTIAL PRESSURE CO2 42.9 mmHg (35.0-45.0); ABG PARTIAL PRESSURE O2 105.8 mmHg (75.0-100.0); ABG pH (ARTERIAL) 7.359 UNITS (7.350-7.450)
[2018-02-04 00:31] LABS: BEDSIDE GLUCOSE 203 MG/DL (80-115)
[2018-02-04 00:31] LABS: BEDSIDE GLUCOSE 171 MG/DL (80-115)
[2018-02-04] MEDS: PIPERACILLIN/TAZOBACTAM SOD 2.25 GM in APPROPRIATE DILUENT 1 EA IV ×3 (03:21→20:27)
[2018-02-04 03:34] LABS: BEDSIDE GLUCOSE 138 MG/DL (80-115)
[2018-02-04 04:41] LABS: HEMATOCRIT 25.9 % (36.0-47.0); HEMOGLOBIN 8.3 g/dl (12.0-16.0); MEAN CORPUSCULAR HEMOGLOBIN 31.4 pg (27.0-33.0); MEAN CORPUSCULAR VOLUME 98.1 fl (80.0-96.0); PLATELET COUNT, AUTOMATED 180 10^3/uL (150-450); RED BLOOD COUNT 2.64 10^6/uL (4.00-5.40); RED CELL DISTRIBUTION WIDTH 15.8 % (11.5-14.5); WHITE BLOOD COUNT 4.4 10^3/uL (4.0-10.0)
[2018-02-04 04:53] LABS: ALBUMIN 3.3 GM/DL (3.2-5.2); ANION GAP 11 MEQ/L (8-16); BLOOD UREA NITROGEN 35 MG/DL (7-18); CALCIUM LEVEL 8.3 MG/DL (8.8-10.2); CARBON DIOXIDE LEVEL 26 MEQ/L (21-32); CHLORIDE LEVEL 102 MEQ/L (98-107); CREATININE FOR GFR 5.46 MG/DL (0.55-1.30); GLOMERULAR FILTRATION RATE 8.3 (>45); GLUCOSE, FASTING 140 MG/DL (70-100); PHOSPHORUS LEVEL 5.4 MG/DL (2.5-4.9); POTASSIUM SERUM 3.9 MEQ/L (3.5-5.1); SODIUM LEVEL 139 MEQ/L (136-145)
[2018-02-04] MEDS: IPRATROPIUM 0.5MG/ALBUTEROL 2.5MG INH SOL UD 3ML (DUONEB)(J7620) NEB ×4 (08:00→20:49)
[2018-02-04] MEDS: methylPREDNISolone INJ 125 MG/2 ML VIAL (J2930) IV ×3 (08:00→23:58)
[2018-02-04] MEDS: HEPARIN SOD (PORCINE) 5000 UNITS/ML VIAL SC ×2 (08:16→21:00)
[2018-02-04] MEDS: AZITHROMYCIN 250 MG TAB PO (08:16)
[2018-02-04] MEDS: ESCITALOPRAM OXALATE 10 MG TAB (LEXAPRO) PO (20:28)
[2018-02-04] MEDS ORDERED: ESCITALOPRAM OXALATE 10 MG TAB (LEXAPRO) PO (21:00)
[2018-02-05] MEDS: PIPERACILLIN/TAZOBACTAM SOD 2.25 GM in APPROPRIATE DILUENT 1 EA IV ×2 (04:10→12:28)
[2018-02-05 06:26] LABS: HEMATOCRIT 26.1 % (36.0-47.0); HEMOGLOBIN 8.4 g/dl (12.0-16.0); MEAN CORPUSCULAR HEMOGLOBIN 31.8 pg (27.0-33.0); MEAN CORPUSCULAR HGB CONC 32.2 g/dl (32.0-36.5); MEAN CORPUSCULAR VOLUME 98.9 fl (80.0-96.0); PLATELET COUNT, AUTOMATED 160 10^3/uL (150-450); RED BLOOD COUNT 2.64 10^6/uL (4.00-5.40); RED CELL DISTRIBUTION WIDTH 16.5 % (11.5-14.5); WHITE BLOOD COUNT 10.4 10^3/uL (4.0-10.0)
[2018-02-05 06:49] LABS: ALBUMIN 3.2 GM/DL (3.2-5.2); ANION GAP 12 MEQ/L (8-16); BLOOD UREA NITROGEN 26 MG/DL (7-18); CALCIUM LEVEL 8.6 MG/DL (8.8-10.2); CARBON DIOXIDE LEVEL 25 MEQ/L (21-32); CHLORIDE LEVEL 104 MEQ/L (98-107); CREATININE FOR GFR 3.67 MG/DL (0.55-1.30); GLOMERULAR FILTRATION RATE 13.1 (>45); GLUCOSE, FASTING 114 MG/DL (70-100); PHOSPHORUS LEVEL 4.7 MG/DL (2.5-4.9); POTASSIUM SERUM 3.5 MEQ/L (3.5-5.1); SODIUM LEVEL 141 MEQ/L (136-145)
[2018-02-05] MEDS: IPRATROPIUM 0.5MG/ALBUTEROL 2.5MG INH SOL UD 3ML (DUONEB)(J7620) NEB ×4 (08:27→21:05)
[2018-02-05] MEDS: HEPARIN SOD (PORCINE) 5000 UNITS/ML VIAL SC ×3 (09:00→21:44)
[2018-02-05] MEDS: methylPREDNISolone INJ 125 MG/2 ML VIAL (J2930) IV (09:09)
[2018-02-05] MEDS: AZITHROMYCIN 250 MG TAB PO (09:09)
[2018-02-05] MEDS: LOSARTAN 50 MG TAB PO (16:05)
[2018-02-05] MEDS: ESCITALOPRAM OXALATE 10 MG TAB (LEXAPRO) PO (21:44)
[2018-02-05] MEDS: CALCIUM CARBONATE 500 MG CHEW U/D PO (22:38)
[2018-02-06] MEDS: LOSARTAN 50 MG TAB PO (06:42)
[2018-02-06 07:40] LABS: HEMOGLOBIN 9.6 g/dl (12.0-16.0); MEAN CORPUSCULAR HEMOGLOBIN 30.8 pg (27.0-33.0); MEAN CORPUSCULAR VOLUME 99.4 fl (80.0-96.0); PLATELET COUNT, AUTOMATED 193 10^3/uL (150-450); RED BLOOD COUNT 3.12 10^6/uL (4.00-5.40); RED CELL DISTRIBUTION WIDTH 16.9 % (11.5-14.5); WHITE BLOOD COUNT 13.3 10^3/uL (4.0-10.0)
[2018-02-06] MEDS: IPRATROPIUM 0.5MG/ALBUTEROL 2.5MG INH SOL UD 3ML (DUONEB)(J7620) NEB ×4 (07:50→19:53)
[2018-02-06 08:07] LABS: ALBUMIN 3.4 GM/DL (3.2-5.2); ANION GAP 11 MEQ/L (8-16); BLOOD UREA NITROGEN 39 MG/DL (7-18); CALCIUM LEVEL 7.9 MG/DL (8.8-10.2); CARBON DIOXIDE LEVEL 29 MEQ/L (21-32); CHLORIDE LEVEL 106 MEQ/L (98-107); CREATININE FOR GFR 5.21 MG/DL (0.55-1.30); GLOMERULAR FILTRATION RATE 8.7 (>45); GLUCOSE, FASTING 97 MG/DL (70-100); PHOSPHORUS LEVEL 4.8 MG/DL (2.5-4.9); SODIUM LEVEL 146 MEQ/L (136-145)
[2018-02-06] MEDS: HEPARIN SOD (PORCINE) 5000 UNITS/ML VIAL SC ×2 (08:35→21:00)
[2018-02-06] MEDS: predniSONE 20 MG TAB PO (08:35)
[2018-02-06] MEDS: NICOTINE 7 MG/24 HR TRANSDERMAL TD (10:58)
[2018-02-06] MEDS: LORazepam 1 MG TAB PO (10:58)
[2018-02-06] MEDS: LevoFLOXacin 500 MG TABLET PO (16:45)
[2018-02-06] MEDS: ESCITALOPRAM OXALATE 10 MG TAB (LEXAPRO) PO (21:22)
[2018-02-06] MEDS: CEPHALEXIN 500 MG CAP PO (21:22)
[2018-02-07 06:49] LABS: HEMATOCRIT 28.3 % (36.0-47.0); HEMOGLOBIN 8.9 g/dl (12.0-16.0); MEAN CORPUSCULAR HEMOGLOBIN 31.7 pg (27.0-33.0); MEAN CORPUSCULAR HGB CONC 31.4 g/dl (32.0-36.5); MEAN CORPUSCULAR VOLUME 100.7 fl (80.0-96.0); PLATELET COUNT, AUTOMATED 166 10^3/uL (150-450); RED BLOOD COUNT 2.81 10^6/uL (4.00-5.40); RED CELL DISTRIBUTION WIDTH 16.7 % (11.5-14.5); WHITE BLOOD COUNT 10.3 10^3/uL (4.0-10.0)
[2018-02-07 07:04] LABS: ALBUMIN 3.1 GM/DL (3.2-5.2); ANION GAP 8 MEQ/L (8-16); BLOOD UREA NITROGEN 23 MG/DL (7-18); CALCIUM LEVEL 7.8 MG/DL (8.8-10.2); CARBON DIOXIDE LEVEL 29 MEQ/L (21-32); CHLORIDE LEVEL 106 MEQ/L (98-107); GLOMERULAR FILTRATION RATE 14.3 (>45); GLUCOSE, FASTING 76 MG/DL (70-100); PHOSPHORUS LEVEL 2.8 MG/DL (2.5-4.9); POTASSIUM SERUM 3.4 MEQ/L (3.5-5.1); SODIUM LEVEL 143 MEQ/L (136-145)
[2018-02-07] MEDS: IPRATROPIUM 0.5MG/ALBUTEROL 2.5MG INH SOL UD 3ML (DUONEB)(J7620) NEB ×2 (07:09→11:38)
[2018-02-07] MEDS: HEPARIN SOD (PORCINE) 5000 UNITS/ML VIAL SC ×2 (09:00→09:45)
[2018-02-07] MEDS: predniSONE 20 MG TAB PO (09:44)
[2018-02-07] MEDS: LORazepam 1 MG TAB PO (09:44)
[2018-02-07] MEDS: CEPHALEXIN 500 MG CAP PO (09:44)
[2018-02-07] MEDS: LOSARTAN 50 MG TAB PO (09:45)
[2018-02-07] MEDS: NICOTINE 7 MG/24 HR TRANSDERMAL TD (09:46)
[2018-02-07] MEDS: amLODIPine 5 MG TAB PO (13:39)
[2018-02-09] MEDS ORDERED: predniSONE 10 MG TAB PO (09:00)
[2018-02-12] MEDS ORDERED: predniSONE 20 MG TAB PO (09:00)
[2018-02-15] MEDS ORDERED: predniSONE 10 MG TAB PO (09:00)
== END 2018-02-07 14:55 | disposition home health service (06) | DRG 177 ==
LOC: M MS5PR 02-04 13:13 → M ED 15:02 → M ED INP 17:51 → M ICU 21:15
DX: J15.0 Pneumonia due to Klebsiella pneumoniae (principal); I50.33 Acute on chronic diastolic (congestive) heart failure; N18.6 End stage renal disease; J96.22 Acute and chronic respiratory failure with hypercapnia; I13.2 Hypertensive heart and chronic kidney disease with heart failure and with stage 5 chronic kidney disease, or end stage renal disease; J44.0 Chronic obstructive pulmonary disease with (acute) lower respiratory infection; E46 Unspecified protein-calorie malnutrition; Q61.3 Polycystic kidney, unspecified; Q44.6 Cystic disease of liver; R62.7 Adult failure to thrive; E03.9 Hypothyroidism, unspecified; F17.210 Nicotine dependence, cigarettes, uncomplicated; I27.20 Pulmonary hypertension, unspecified; Z79.899 Other long term (current) drug therapy; Z88.2 Allergy status to sulfonamides; D63.8 Anemia in other chronic diseases classified elsewhere; Z88.5 Allergy status to narcotic agent; Z88.8 Allergy status to other drugs, medicaments and biological substances; Z79.82 Long term (current) use of aspirin; I36.0 Nonrheumatic tricuspid (valve) stenosis

== ENCOUNTER 2018-03-29 06:54 | Emergency (ER) | payer MEDICARE, MEDICAID ==
[2018-03-29 07:42] LABS: BASO # 0.1 10^3/uL (0.0-0.2); BASO % 0.6 % (0.0-1.0); EOS # 0.3 10^3/uL (0.0-0.50); EOS % 2.9 % (0.0-3.0); HEMATOCRIT 34.7 % (36.0-47.0); HEMOGLOBIN 10.5 g/dl (12.0-15.5); IMMATURE GRANULOCYTE % 0.6 % (0-3.0); LYMPH # 0.8 10^3/uL (1.5-4.5); LYMPH % 9.3 % (24.0-44.0); MEAN CORPUSCULAR HEMOGLOBIN 30.4 pg (27.0-33.0); MEAN CORPUSCULAR HGB CONC 30.3 g/dl (32.0-36.5); MEAN CORPUSCULAR VOLUME 100.6 fl (80.0-96.0); MONO # 0.7 10^3/uL (0.0-0.8); MONO % 8.2 % (0.0-5.0); NEUTROPHILS % 78.4 % (36.0-66.0); PLATELET COUNT, AUTOMATED 188 10^3/uL (150-450); RED BLOOD COUNT 3.45 10^6/uL (4.00-5.40); RED CELL DISTRIBUTION WIDTH 18.1 % (11.5-14.5); WHITE BLOOD COUNT 8.9 10^3/uL (4.0-10.0)
[2018-03-29] MEDS: methylPREDNISolone INJ 125 MG/2 ML VIAL (J2930) IV (07:45)
[2018-03-29] MEDS: IPRATROPIUM 0.5MG/ALBUTEROL 2.5MG INH SOL UD 3ML (DUONEB)(J7620) NEB (08:16)
[2018-03-29 08:17] LABS: LACTIC ACID SEPSIS PROTOCOL 1.2 MMOL/L (0.4-2.0)
[2018-03-29 08:19] LABS: ABG BASE EXCESS -0.8 (-2.0-2.0); ABG HCO3 23.3 MEQ/L (22.0-26.0); ABG O2 SATURATION 96.1 % (95.0-99.0); ABG PARTIAL PRESSURE CO2 36.7 mmHg (35.0-45.0); ABG PARTIAL PRESSURE O2 78.2 mmHg (75.0-100.0); ABG STANDARD HCO3 23.8 MEQ/L (22.0-26.0); ABG TOTAL CO2 24.5 MEQ/L (23.0-31.0); ABG pH (ARTERIAL) 7.421 UNITS (7.350-7.450)
[2018-03-29 08:25] LABS: ANION GAP 8 MEQ/L (8-16); BLOOD UREA NITROGEN 32 MG/DL (7-18); CALCIUM LEVEL 8.6 MG/DL (8.8-10.2); CARBON DIOXIDE LEVEL 29 MEQ/L (21-32); CHLORIDE LEVEL 108 MEQ/L (98-107); CREATININE FOR GFR 5.84 MG/DL (0.55-1.30); FREE T4 1.25 NG/DL (0.76-1.46); GLOMERULAR FILTRATION RATE 7.6 (>45); GLUCOSE, FASTING 80 MG/DL (70-100); SODIUM LEVEL 145 MEQ/L (136-145); THYROID STIMULATING HORMONE 0.135 uIU/ML (0.358-3.740)
== END 2018-03-29 10:39 | disposition home or self-care (01) ==
LOC: M ED 06:54
DX: J44.1 Chronic obstructive pulmonary disease with (acute) exacerbation (principal); I50.9 Heart failure, unspecified; I10 Essential (primary) hypertension; F32.9 Major depressive disorder, single episode, unspecified; F41.9 Anxiety disorder, unspecified; F17.200 Nicotine dependence, unspecified, uncomplicated; Z79.82 Long term (current) use of aspirin; Z79.899 Other long term (current) drug therapy; Z88.5 Allergy status to narcotic agent; Z88.8 Allergy status to other drugs, medicaments and biological substances
CPT/HCPCS: J2930

== ENCOUNTER 2018-04-13 11:56 | Inpatient (IN) | payer MEDICARE, MEDICAID ==
[2018-04-13 13:15] LABS: BASO # 0.1 10^3/uL (0.0-0.2); BASO % 0.5 % (0.0-1.0); EOS # 0.4 10^3/uL (0.0-0.50); EOS % 3.7 % (0.0-3.0); HEMOGLOBIN 8.8 g/dl (12.0-15.5); IMMATURE GRANULOCYTE % 0.7 % (0-3.0); LYMPH # 1.2 10^3/uL (1.5-4.5); LYMPH % 10.6 % (24.0-44.0); MEAN CORPUSCULAR HEMOGLOBIN 28.9 pg (27.0-33.0); MEAN CORPUSCULAR HGB CONC 30.3 g/dl (32.0-36.5); MEAN CORPUSCULAR VOLUME 95.4 fl (80.0-96.0); MONO # 0.9 10^3/uL (0.0-0.8); MONO % 7.4 % (0.0-5.0); NEUTROPHILS # 8.9 10^3/uL (1.8-7.7); NEUTROPHILS % 77.1 % (36.0-66.0); PLATELET COUNT, AUTOMATED 303 10^3/uL (150-450); RED BLOOD COUNT 3.04 10^6/uL (4.00-5.40); RED CELL DISTRIBUTION WIDTH 18.5 % (11.5-14.5); WHITE BLOOD COUNT 11.6 10^3/uL (4.0-10.0)
[2018-04-13] MEDS: methylPREDNISolone INJ 125 MG/2 ML VIAL (J2930) IV ×2 (13:37→21:07)
[2018-04-13 13:38] LABS: ANION GAP 8 MEQ/L (8-16); BLOOD UREA NITROGEN 26 MG/DL (7-18); CALCIUM LEVEL 8.1 MG/DL (8.8-10.2); CARBON DIOXIDE LEVEL 30 MEQ/L (21-32); CHLORIDE LEVEL 102 MEQ/L (98-107); CK-MB VALUE MASS 3.3 NG/ML (<3.6); CPK CREATINE PHOSPHOKINASE 34 U/L (26-192); CREATININE FOR GFR 6.18 MG/DL (0.55-1.30); GLOMERULAR FILTRATION RATE 7.2 (>45); GLUCOSE, FASTING 71 MG/DL (70-100); POTASSIUM SERUM 3.8 MEQ/L (3.5-5.1); SODIUM LEVEL 140 MEQ/L (136-145); TROPONIN I 0.03 NG/ML (< 0.10)
[2018-04-13] MEDS: IPRATROPIUM 0.5MG/ALBUTEROL 2.5MG INH SOL UD 3ML (DUONEB)(J7620) NEB ×4 (13:39→23:08)
[2018-04-13 13:45] LABS: ABG BASE EXCESS 1.6 (-2.0-2.0); ABG HCO3 27.1 MEQ/L (22.0-26.0); ABG O2 SATURATION 90.3 % (95.0-99.0); ABG PARTIAL PRESSURE CO2 46.8 mmHg (35.0-45.0); ABG PARTIAL PRESSURE O2 59.2 mmHg (75.0-100.0); ABG STANDARD HCO3 25.8 MEQ/L (22.0-26.0); ABG TOTAL CO2 28.5 MEQ/L (23.0-31.0)
[2018-04-13 14:12] LABS: LACTIC ACID SEPSIS PROTOCOL 0.5 MMOL/L (0.4-2.0)
[2018-04-13] MEDS ORDERED: ONDANSETRON 4MG/2ML VIAL (J2405) IV (16:30)
[2018-04-13 17:08] LABS: RETIC HEMOGLOBIN EQUIVALENT 27.5 pg (24-36); RETICULOCYTE # 66.8 10^9/L (17-77); RETICULOCYTE % 2.2 % (0.5-1.5)
[2018-04-13 17:17] LABS: FERRITIN 1027 NG/ML (8-252); IRON (FE) 25 UG/DL (50-170); PERCENT SATURATION 19.4 % (13.2-45.0); THYROID STIMULATING HORMONE 0.706 uIU/ML (0.358-3.740); TOTAL IRON BINDING CAPACITY 129 UG/DL (250-450)
[2018-04-13] MEDS: cefTRIAXone SOD 2 GM in D5W MINI-BAG PLUS 50 ML IV (18:55)
[2018-04-13] MEDS: AZITHROMYCIN 250 MG TAB PO (18:55)
[2018-04-13] MEDS: HEPARIN SOD (PORCINE) 5000 UNITS/ML VIAL SC (21:00)
[2018-04-13] MEDS: ALBUTEROL SULFATE 2.5 MG/0.5 ML INH NEB SOLN INH (23:19)
[2018-04-14] MEDS: methylPREDNISolone INJ 125 MG/2 ML VIAL (J2930) IV (05:03)
[2018-04-14] MEDS: LEVOTHYROXINE 137MCG TABLET (0.137MG) PO (06:00)
[2018-04-14 06:57] LABS: HEMATOCRIT 26.4 % (36.0-47.0); HEMOGLOBIN 8.2 g/dl (12.0-15.5); MEAN CORPUSCULAR HEMOGLOBIN 28.5 pg (27.0-33.0); MEAN CORPUSCULAR HGB CONC 31.1 g/dl (32.0-36.5); MEAN CORPUSCULAR VOLUME 91.7 fl (80.0-96.0); PLATELET COUNT, AUTOMATED 275 10^3/uL (150-450); RED BLOOD COUNT 2.88 10^6/uL (4.00-5.40); WHITE BLOOD COUNT 5.5 10^3/uL (4.0-10.0)
[2018-04-14 07:05] LABS: ANION GAP 10 MEQ/L (8-16); BLOOD UREA NITROGEN 33 MG/DL (7-18); CALCIUM LEVEL 7.9 MG/DL (8.8-10.2); CARBON DIOXIDE LEVEL 27 MEQ/L (21-32); CHLORIDE LEVEL 100 MEQ/L (98-107); CREATININE FOR GFR 6.76 MG/DL (0.55-1.30); GLOMERULAR FILTRATION RATE 6.5 (>45); GLUCOSE, FASTING 229 MG/DL (70-100); POTASSIUM SERUM 3.9 MEQ/L (3.5-5.1); SODIUM LEVEL 137 MEQ/L (136-145)
[2018-04-14] MEDS: AZITHROMYCIN 250 MG TAB PO (08:01)
[2018-04-14] MEDS: HEPARIN SOD (PORCINE) 5000 UNITS/ML VIAL SC ×2 (08:01→21:00)
[2018-04-14] MEDS: IPRATROPIUM 0.5MG/ALBUTEROL 2.5MG INH SOL UD 3ML (DUONEB)(J7620) NEB ×3 (08:50→15:23)
[2018-04-14] MEDS ORDERED: IRON SUCROSE 100MG 5ML VIAL (J1756 PER 1MG) IV (09:00)
[2018-04-14] MEDS: methylPREDNISolone INJ 40 MG/1 ML VIAL (J2920) IV ×2 (14:00→21:42)
[2018-04-14] MEDS: TIOTROPIUM INHALER/CAPSULE (SPIRIVA) INH (15:23)
[2018-04-14] MEDS: cefTRIAXone SOD 2 GM in D5W MINI-BAG PLUS 50 ML IV (17:15)
[2018-04-14] MEDS: SYMBICORT 160/4.5MCG INHALER 6GM INH (19:34)
[2018-04-14] MEDS: ESCITALOPRAM OXALATE 10 MG TAB (LEXAPRO) PO (21:42)
[2018-04-14] MEDS: LORazepam 1 MG TAB PO (21:42)
[2018-04-15 06:05] LABS: HEMATOCRIT 26.5 % (36.0-47.0); HEMOGLOBIN 8.3 g/dl (12.0-15.5); MEAN CORPUSCULAR HEMOGLOBIN 28.7 pg (27.0-33.0); MEAN CORPUSCULAR HGB CONC 31.3 g/dl (32.0-36.5); MEAN CORPUSCULAR VOLUME 91.7 fl (80.0-96.0); PLATELET COUNT, AUTOMATED 284 10^3/uL (150-450); RED BLOOD COUNT 2.89 10^6/uL (4.00-5.40); RED CELL DISTRIBUTION WIDTH 18.6 % (11.5-14.5); WHITE BLOOD COUNT 11.6 10^3/uL (4.0-10.0)
[2018-04-15] MEDS: methylPREDNISolone INJ 40 MG/1 ML VIAL (J2920) IV ×3 (06:23→21:17)
[2018-04-15] MEDS: LEVOTHYROXINE 137MCG TABLET (0.137MG) PO (06:23)
[2018-04-15 06:26] LABS: ANION GAP 9 MEQ/L (8-16); BLOOD UREA NITROGEN 23 MG/DL (7-18); CARBON DIOXIDE LEVEL 27 MEQ/L (21-32); CHLORIDE LEVEL 105 MEQ/L (98-107); CREATININE FOR GFR 4.12 MG/DL (0.55-1.30); GLOMERULAR FILTRATION RATE 11.4 (>45); GLUCOSE, FASTING 114 MG/DL (70-100); POTASSIUM SERUM 3.6 MEQ/L (3.5-5.1); SODIUM LEVEL 141 MEQ/L (136-145)
[2018-04-15] MEDS: IPRATROPIUM 0.5MG/ALBUTEROL 2.5MG INH SOL UD 3ML (DUONEB)(J7620) NEB ×3 (08:00→15:17)
[2018-04-15] MEDS: TIOTROPIUM INHALER/CAPSULE (SPIRIVA) INH (08:59)
[2018-04-15] MEDS: HEPARIN SOD (PORCINE) 5000 UNITS/ML VIAL SC ×2 (09:00→21:00)
[2018-04-15] MEDS: SYMBICORT 160/4.5MCG INHALER 6GM INH ×2 (09:00→21:56)
[2018-04-15] MEDS: LORazepam 1 MG TAB PO ×2 (09:31→18:21)
[2018-04-15] MEDS: AZITHROMYCIN 250 MG TAB PO (09:31)
[2018-04-15] MEDS: ASPIRIN 81 MG ENTERIC TAB PO (09:31)
[2018-04-15] MEDS: cefTRIAXone SOD 2 GM in D5W MINI-BAG PLUS 50 ML IV (17:29)
[2018-04-15] MEDS: EUCERIN 120GM CREAM TOP (21:00)
[2018-04-15] MEDS: ESCITALOPRAM OXALATE 10 MG TAB (LEXAPRO) PO (21:17)
[2018-04-16] MEDS: methylPREDNISolone INJ 40 MG/1 ML VIAL (J2920) IV (06:12)
[2018-04-16] MEDS: LEVOTHYROXINE 137MCG TABLET (0.137MG) PO (06:12)
[2018-04-16 07:15] LABS: HEMATOCRIT 26.5 % (36.0-47.0); HEMOGLOBIN 8.1 g/dl (12.0-15.5); MEAN CORPUSCULAR HEMOGLOBIN 28.6 pg (27.0-33.0); MEAN CORPUSCULAR HGB CONC 30.6 g/dl (32.0-36.5); MEAN CORPUSCULAR VOLUME 93.6 fl (80.0-96.0); PLATELET COUNT, AUTOMATED 282 10^3/uL (150-450); RED BLOOD COUNT 2.83 10^6/uL (4.00-5.40); RED CELL DISTRIBUTION WIDTH 19.2 % (11.5-14.5); WHITE BLOOD COUNT 13.4 10^3/uL (4.0-10.0)
[2018-04-16 07:28] LABS: ANION GAP 10 MEQ/L (8-16); BLOOD UREA NITROGEN 37 MG/DL (7-18); CALCIUM LEVEL 7.4 MG/DL (8.8-10.2); CARBON DIOXIDE LEVEL 26 MEQ/L (21-32); CHLORIDE LEVEL 104 MEQ/L (98-107); CREATININE FOR GFR 5.35 MG/DL (0.55-1.30); GLOMERULAR FILTRATION RATE 8.4 (>45); GLUCOSE, FASTING 85 MG/DL (70-100); POTASSIUM SERUM 3.1 MEQ/L (3.5-5.1); SODIUM LEVEL 140 MEQ/L (136-145)
[2018-04-16] MEDS: IPRATROPIUM 0.5MG/ALBUTEROL 2.5MG INH SOL UD 3ML (DUONEB)(J7620) NEB ×3 (08:00→15:05)
[2018-04-16] MEDS: TIOTROPIUM INHALER/CAPSULE (SPIRIVA) INH (08:58)
[2018-04-16] MEDS: SYMBICORT 160/4.5MCG INHALER 6GM INH ×2 (08:58→20:08)
[2018-04-16] MEDS: HEPARIN SOD (PORCINE) 5000 UNITS/ML VIAL SC ×2 (09:03→20:14)
[2018-04-16] MEDS: ASPIRIN 81 MG ENTERIC TAB PO (09:50)
[2018-04-16] MEDS: AZITHROMYCIN 250 MG TAB PO (09:50)
[2018-04-16] MEDS: EUCERIN 120GM CREAM TOP ×2 (09:50→20:20)
[2018-04-16] MEDS: POTASSIUM CHLORIDE 10 MEQ SR TABLET PO (09:53)
[2018-04-16] MEDS: predniSONE 20 MG TAB PO (09:53)
[2018-04-16] MEDS: cefTRIAXone SOD 2 GM in D5W MINI-BAG PLUS 50 ML IV (18:11)
[2018-04-16] MEDS: LORazepam 1 MG TAB PO (18:14)
[2018-04-16] MEDS: ESCITALOPRAM OXALATE 10 MG TAB (LEXAPRO) PO (20:20)
[2018-04-17] MEDS: HEPARIN SOD (PORCINE) 5000 UNITS/ML VIAL SC ×2 (06:20→20:45)
[2018-04-17 06:21] LABS: HEMATOCRIT 27.8 % (36.0-47.0); HEMOGLOBIN 8.6 g/dl (12.0-15.5); MEAN CORPUSCULAR HEMOGLOBIN 28.9 pg (27.0-33.0); MEAN CORPUSCULAR HGB CONC 30.9 g/dl (32.0-36.5); MEAN CORPUSCULAR VOLUME 93.3 fl (80.0-96.0); PLATELET COUNT, AUTOMATED 281 10^3/uL (150-450); RED BLOOD COUNT 2.98 10^6/uL (4.00-5.40); RED CELL DISTRIBUTION WIDTH 19.4 % (11.5-14.5); WHITE BLOOD COUNT 12.7 10^3/uL (4.0-10.0)
[2018-04-17] MEDS: AZITHROMYCIN 250 MG TAB PO (06:24)
[2018-04-17] MEDS: predniSONE 20 MG TAB PO (06:24)
[2018-04-17] MEDS: LEVOTHYROXINE 137MCG TABLET (0.137MG) PO (06:24)
[2018-04-17 06:42] LABS: ANION GAP 9 MEQ/L (8-16); BLOOD UREA NITROGEN 45 MG/DL (7-18); CALCIUM LEVEL 7.5 MG/DL (8.8-10.2); CARBON DIOXIDE LEVEL 27 MEQ/L (21-32); CHLORIDE LEVEL 107 MEQ/L (98-107); CREATININE FOR GFR 6.43 MG/DL (0.55-1.30); GLOMERULAR FILTRATION RATE 6.8 (>45); GLUCOSE, FASTING 79 MG/DL (70-100); POTASSIUM SERUM 3.3 MEQ/L (3.5-5.1); SODIUM LEVEL 143 MEQ/L (136-145)
[2018-04-17] MEDS: SYMBICORT 160/4.5MCG INHALER 6GM INH ×2 (07:40→20:45)
[2018-04-17] MEDS: IPRATROPIUM 0.5MG/ALBUTEROL 2.5MG INH SOL UD 3ML (DUONEB)(J7620) NEB ×3 (07:40→15:09)
[2018-04-17] MEDS: TIOTROPIUM INHALER/CAPSULE (SPIRIVA) INH (07:40)
[2018-04-17] MEDS ORDERED: SIMETHICONE 80 MG CHEW TAB PO (08:45)
[2018-04-17] MEDS ORDERED: DARBEPOETIN 100 MCG/0.5 ML *DIALYSIS* SYRINGE (J0882) IV (10:45)
[2018-04-17] MEDS: LACTOBACILLUS ACIDOPHILUS CAP (BACID) PO (13:05)
[2018-04-17] MEDS: EUCERIN 120GM CREAM TOP ×2 (13:06→20:44)
[2018-04-17] MEDS: cefTRIAXone SOD 2 GM in D5W MINI-BAG PLUS 50 ML IV (17:45)
[2018-04-17] MEDS: ACETAMINOPHEN TAB 650MG DOSE (2X325MG) PO (20:44)
[2018-04-17] MEDS: ESCITALOPRAM OXALATE 10 MG TAB (LEXAPRO) PO (20:44)
[2018-04-17] MEDS: LORazepam 1 MG TAB PO (20:44)
[2018-04-18] MEDS: LEVOTHYROXINE 137MCG TABLET (0.137MG) PO (05:42)
[2018-04-18 06:23] LABS: HEMATOCRIT 29.3 % (36.0-47.0); HEMOGLOBIN 8.9 g/dl (12.0-15.5); MEAN CORPUSCULAR HEMOGLOBIN 29.1 pg (27.0-33.0); MEAN CORPUSCULAR HGB CONC 30.4 g/dl (32.0-36.5); MEAN CORPUSCULAR VOLUME 95.8 fl (80.0-96.0); PLATELET COUNT, AUTOMATED 254 10^3/uL (150-450); RED BLOOD COUNT 3.06 10^6/uL (4.00-5.40); RED CELL DISTRIBUTION WIDTH 19.7 % (11.5-14.5); WHITE BLOOD COUNT 12.4 10^3/uL (4.0-10.0)
[2018-04-18 06:56] LABS: ANION GAP 8 MEQ/L (8-16); BLOOD UREA NITROGEN 25 MG/DL (7-18); CALCIUM LEVEL 7.8 MG/DL (8.8-10.2); CARBON DIOXIDE LEVEL 29 MEQ/L (21-32); CHLORIDE LEVEL 105 MEQ/L (98-107); CREATININE FOR GFR 3.61 MG/DL (0.55-1.30); GLOMERULAR FILTRATION RATE 13.3 (>45); GLUCOSE, FASTING 70 MG/DL (70-100); SODIUM LEVEL 142 MEQ/L (136-145)
[2018-04-18] MEDS: IPRATROPIUM 0.5MG/ALBUTEROL 2.5MG INH SOL UD 3ML (DUONEB)(J7620) NEB ×2 (08:00)
[2018-04-18] MEDS: HEPARIN SOD (PORCINE) 5000 UNITS/ML VIAL SC (08:11)
[2018-04-18] MEDS: LACTOBACILLUS ACIDOPHILUS CAP (BACID) PO (08:11)
[2018-04-18] MEDS: predniSONE 10 MG TAB PO (08:11)
[2018-04-18] MEDS: EUCERIN 120GM CREAM TOP (08:11)
[2018-04-18] MEDS: ASPIRIN 81 MG ENTERIC TAB PO (08:11)
[2018-04-18] MEDS: TIOTROPIUM INHALER/CAPSULE (SPIRIVA) INH (08:34)
[2018-04-18] MEDS: SYMBICORT 160/4.5MCG INHALER 6GM INH (08:34)
== END 2018-04-18 11:07 | disposition home or self-care (01) | DRG 190 ==
LOC: M ED 11:56 → M ED INP 16:29 → M MSPAV 18:16
PROC: 5A1D70Z Performance of Urinary Filtration, Intermittent, Less than 6 Hours Per Day (ICD-10-PCS; principal; 2018-04-14)
DX: J44.1 Chronic obstructive pulmonary disease with (acute) exacerbation (principal); N18.6 End stage renal disease; I50.32 Chronic diastolic (congestive) heart failure; I13.2 Hypertensive heart and chronic kidney disease with heart failure and with stage 5 chronic kidney disease, or end stage renal disease; Q61.3 Polycystic kidney, unspecified; Q44.6 Cystic disease of liver; R09.02 Hypoxemia; J20.9 Acute bronchitis, unspecified; I27.20 Pulmonary hypertension, unspecified; I27.81 Cor pulmonale (chronic); E03.9 Hypothyroidism, unspecified; D63.1 Anemia in chronic kidney disease; F41.9 Anxiety disorder, unspecified; F32.9 Major depressive disorder, single episode, unspecified; Z79.899 Other long term (current) drug therapy; F17.200 Nicotine dependence, unspecified, uncomplicated; Z88.5 Allergy status to narcotic agent; Z88.8 Allergy status to other drugs, medicaments and biological substances; E87.6 Hypokalemia

== ENCOUNTER 2018-06-03 15:43 | Observation (INO) | payer MEDICARE, MEDICAID ==
[2018-06-03] MEDS: methylPREDNISolone INJ 125 MG/2 ML VIAL (J2930) IV (17:19)
[2018-06-03 17:21] LABS: ABG BASE EXCESS 1.7 (-2.0-2.0); ABG HCO3 26.2 MEQ/L (22.0-26.0); ABG O2 SATURATION 94.1 % (95.0-99.0); ABG PARTIAL PRESSURE CO2 40.7 mmHg (35.0-45.0); ABG PARTIAL PRESSURE O2 66.5 mmHg (75.0-100.0); ABG STANDARD HCO3 25.9 MEQ/L (22.0-26.0); ABG TOTAL CO2 27.4 MEQ/L (23.0-31.0); ABG pH (ARTERIAL) 7.426 UNITS (7.350-7.450)
[2018-06-03] MEDS: IPRATROPIUM 0.5MG/ALBUTEROL 2.5MG INH SOL UD 3ML (DUONEB)(J7620) NEB ×2 (17:22→17:36)
[2018-06-03 17:55] LABS: BASO # 0.1 10^3/uL (0.0-0.2); BASO % 0.7 % (0.0-1.0); EOS # 0.4 10^3/uL (0.0-0.50); EOS % 3.9 % (0.0-3.0); HEMATOCRIT 35.2 % (36.0-47.0); HEMOGLOBIN 10.7 g/dl (12.0-15.5); IMMATURE GRANULOCYTE % 0.3 % (0-3.0); LYMPH # 1.7 10^3/uL (1.5-4.5); MEAN CORPUSCULAR HEMOGLOBIN 29.2 pg (27.0-33.0); MEAN CORPUSCULAR HGB CONC 30.4 g/dl (32.0-36.5); MEAN CORPUSCULAR VOLUME 95.9 fl (80.0-96.0); MONO # 0.6 10^3/uL (0.0-0.8); MONO % 6.1 % (0.0-5.0); NEUTROPHILS # 7.1 10^3/uL (1.8-7.7); PLATELET COUNT, AUTOMATED 168 10^3/uL (150-450); RED BLOOD COUNT 3.67 10^6/uL (4.00-5.40); RED CELL DISTRIBUTION WIDTH 19.1 % (11.5-14.5); WHITE BLOOD COUNT 9.8 10^3/uL (4.0-10.0)
[2018-06-03 18:23] LABS: ANION GAP 9 MEQ/L (8-16); BLOOD UREA NITROGEN 21 MG/DL (7-18); CALCIUM LEVEL 8.4 MG/DL (8.8-10.2); CARBON DIOXIDE LEVEL 28 MEQ/L (21-32); CHLORIDE LEVEL 105 MEQ/L (98-107); CPK CREATINE PHOSPHOKINASE 49 U/L (26-192); CREATININE FOR GFR 3.92 MG/DL (0.55-1.30); GLOMERULAR FILTRATION RATE 12.1 (>45); GLUCOSE, FASTING 65 MG/DL (70-100); POTASSIUM SERUM 3.9 MEQ/L (3.5-5.1); SODIUM LEVEL 142 MEQ/L (136-145); TROPONIN I 0.03 NG/ML (< 0.10)
[2018-06-03 18:29] LABS: CK-MB VALUE MASS 3.6 NG/ML (<3.6); MB/CK RELATIVE INDEX 7.34 (< OR =4); NT-PRO BNP 11548 PG/ML (<125); THYROID STIMULATING HORMONE 0.377 uIU/ML (0.358-3.740)
[2018-06-03] MEDS ORDERED: ESCITALOPRAM OXALATE 10 MG TAB (LEXAPRO) PO ×2 (21:00)
[2018-06-04] MEDS ORDERED: ACETAMINOPHEN TAB 650MG DOSE (2X325MG) PO (00:45)
[2018-06-04] MEDS: ESCITALOPRAM OXALATE 10 MG TAB (LEXAPRO) PO ×2 (02:58→20:48)
[2018-06-04] MEDS: IPRATROPIUM 0.5MG/ALBUTEROL 2.5MG INH SOL UD 3ML (DUONEB)(J7620) NEB ×6 (04:00→20:00)
[2018-06-04] MEDS: LEVOTHYROXINE 137MCG TABLET (0.137MG) PO (06:31)
[2018-06-04] MEDS: HEPARIN SOD (PORCINE) 5000 UNITS/ML VIAL SC ×4 (06:32→22:00)
[2018-06-04] MEDS: SYMBICORT 160/4.5MCG INHALER 6GM INH ×2 (07:08→21:04)
[2018-06-04] MEDS: NICOTINE 7 MG/24 HR TRANSDERMAL TD (09:33)
[2018-06-04] MEDS: LOSARTAN 50 MG TAB PO (09:33)
[2018-06-04] MEDS: predniSONE 20 MG TAB PO (09:34)
[2018-06-04] MEDS: amLODIPine 10 MG TAB PO (09:34)
[2018-06-04] MEDS: ASPIRIN 81 MG ENTERIC TAB PO (09:34)
[2018-06-04] MEDS: CALCIUM ACETATE 667 MG GELCAP PO ×3 (09:34→17:26)
[2018-06-04] MEDS: LORazepam 1 MG TAB PO ×2 (13:24→20:56)
[2018-06-05] MEDS: IPRATROPIUM 0.5MG/ALBUTEROL 2.5MG INH SOL UD 3ML (DUONEB)(J7620) NEB ×7 (05:12→23:04)
[2018-06-05] MEDS: HEPARIN SOD (PORCINE) 5000 UNITS/ML VIAL SC ×4 (06:00→22:57)
[2018-06-05] MEDS: LEVOTHYROXINE 137MCG TABLET (0.137MG) PO (06:17)
[2018-06-05] MEDS: NICOTINE 7 MG/24 HR TRANSDERMAL TD (06:17)
[2018-06-05] MEDS: predniSONE 20 MG TAB PO (06:18)
[2018-06-05] MEDS: LOSARTAN 50 MG TAB PO (06:18)
[2018-06-05] MEDS: amLODIPine 10 MG TAB PO (06:19)
[2018-06-05] MEDS: CALCIUM ACETATE 667 MG GELCAP PO ×3 (06:19→17:53)
[2018-06-05] MEDS: ASPIRIN 81 MG ENTERIC TAB PO (06:19)
[2018-06-05] MEDS: LORazepam 1 MG TAB PO ×2 (06:45→17:53)
[2018-06-05 07:03] LABS: HEMOGLOBIN 11.2 g/dl (12.0-15.5); MEAN CORPUSCULAR HEMOGLOBIN 28.9 pg (27.0-33.0); MEAN CORPUSCULAR HGB CONC 30.3 g/dl (32.0-36.5); MEAN CORPUSCULAR VOLUME 95.4 fl (80.0-96.0); PLATELET COUNT, AUTOMATED 211 10^3/uL (150-450); RED BLOOD COUNT 3.88 10^6/uL (4.00-5.40); RED CELL DISTRIBUTION WIDTH 19.2 % (11.5-14.5); WHITE BLOOD COUNT 10.4 10^3/uL (4.0-10.0)
[2018-06-05 07:19] LABS: ANION GAP 10 MEQ/L (8-16); BLOOD UREA NITROGEN 39 MG/DL (7-18); CALCIUM LEVEL 8.5 MG/DL (8.8-10.2); CARBON DIOXIDE LEVEL 29 MEQ/L (21-32); CHLORIDE LEVEL 99 MEQ/L (98-107); CREATININE FOR GFR 5.63 MG/DL (0.55-1.30); GLUCOSE, FASTING 83 MG/DL (70-100); POTASSIUM SERUM 3.8 MEQ/L (3.5-5.1); SODIUM LEVEL 138 MEQ/L (136-145)
[2018-06-05] MEDS: SYMBICORT 160/4.5MCG INHALER 6GM INH ×2 (07:43→23:00)
[2018-06-05] MEDS: LIDOCAINE 1% SDV 5 ML VIAL SQ (11:15)
[2018-06-05] MEDS: ESCITALOPRAM OXALATE 10 MG TAB (LEXAPRO) PO (20:25)
[2018-06-05] MEDS: SENNA 8.6 MG TAB (SENOKOT) PO (22:57)
[2018-06-05] MEDS: DOCUSATE SODIUM 100 MG CAP PO (22:57)
[2018-06-05] MEDS: EUCERIN 120GM CREAM TOP (22:58)
[2018-06-06] MEDS: LEVOTHYROXINE 137MCG TABLET (0.137MG) PO (05:47)
[2018-06-06] MEDS: HEPARIN SOD (PORCINE) 5000 UNITS/ML VIAL SC (05:48)
[2018-06-06 06:55] LABS: HEMATOCRIT 33.1 % (36.0-47.0); HEMOGLOBIN 10.3 g/dl (12.0-15.5); MEAN CORPUSCULAR HEMOGLOBIN 29.8 pg (27.0-33.0); MEAN CORPUSCULAR HGB CONC 31.1 g/dl (32.0-36.5); MEAN CORPUSCULAR VOLUME 95.7 fl (80.0-96.0); PLATELET COUNT, AUTOMATED 173 10^3/uL (150-450); RED BLOOD COUNT 3.46 10^6/uL (4.00-5.40); RED CELL DISTRIBUTION WIDTH 18.9 % (11.5-14.5); WHITE BLOOD COUNT 11.1 10^3/uL (4.0-10.0)
[2018-06-06 07:24] LABS: ANION GAP 9 MEQ/L (8-16); BLOOD UREA NITROGEN 24 MG/DL (7-18); CALCIUM LEVEL 8.4 MG/DL (8.8-10.2); CARBON DIOXIDE LEVEL 28 MEQ/L (21-32); CHLORIDE LEVEL 103 MEQ/L (98-107); CREATININE FOR GFR 3.71 MG/DL (0.55-1.30); GLOMERULAR FILTRATION RATE 12.9 (>45); GLUCOSE, FASTING 77 MG/DL (70-100); POTASSIUM SERUM 3.3 MEQ/L (3.5-5.1); SODIUM LEVEL 140 MEQ/L (136-145)
[2018-06-06] MEDS: IPRATROPIUM 0.5MG/ALBUTEROL 2.5MG INH SOL UD 3ML (DUONEB)(J7620) NEB (07:56)
[2018-06-06] MEDS: SYMBICORT 160/4.5MCG INHALER 6GM INH (07:56)
[2018-06-06] MEDS: predniSONE 10 MG TAB PO (09:00)
[2018-06-06] MEDS: CALCIUM ACETATE 667 MG GELCAP PO (09:01)
[2018-06-06] MEDS: NICOTINE 7 MG/24 HR TRANSDERMAL TD (09:01)
[2018-06-06] MEDS: DOCUSATE SODIUM 100 MG CAP PO (09:01)
[2018-06-06] MEDS: ASPIRIN 81 MG ENTERIC TAB PO (09:01)
[2018-06-06] MEDS: amLODIPine 10 MG TAB PO (09:01)
[2018-06-06] MEDS: LOSARTAN 50 MG TAB PO (09:01)
[2018-06-06] MEDS: EUCERIN 120GM CREAM TOP (09:02)
[2018-06-06] MEDS: LORazepam 1 MG TAB PO (09:06)
[2018-06-06] MEDS ORDERED: SENNA 8.6 MG TAB (SENOKOT) PO (21:00)
== END 2018-06-06 11:04 | disposition home or self-care (01) ==
LOC: M ED INP 15:44 → M MSPAV 06-04 02:22 → M ED 15:43
DX: J44.1 Chronic obstructive pulmonary disease with (acute) exacerbation (principal); J96.11 Chronic respiratory failure with hypoxia; N18.6 End stage renal disease; D63.1 Anemia in chronic kidney disease; Z79.899 Other long term (current) drug therapy; I27.81 Cor pulmonale (chronic); I50.30 Unspecified diastolic (congestive) heart failure; E03.9 Hypothyroidism, unspecified; I12.9 Hypertensive chronic kidney disease with stage 1 through stage 4 chronic kidney disease, or unspecified chronic kidney disease; Q44.6 Cystic disease of liver; Q61.3 Polycystic kidney, unspecified; F41.9 Anxiety disorder, unspecified; F32.9 Major depressive disorder, single episode, unspecified; F17.210 Nicotine dependence, cigarettes, uncomplicated
CPT/HCPCS: J2930

== ENCOUNTER 2018-07-03 11:19 | Inpatient (IN) | payer MEDICARE, MEDICAID ==
[2018-07-03 12:09] LABS: HEMATOCRIT 30.5 % (36.0-47.0); HEMOGLOBIN 9.6 g/dl (12.0-15.5); MEAN CORPUSCULAR HEMOGLOBIN 26.8 pg (27.0-33.0); MEAN CORPUSCULAR HGB CONC 31.5 g/dl (32.0-36.5); MEAN CORPUSCULAR VOLUME 85.2 fl (80.0-96.0); PLATELET COUNT, AUTOMATED 336 10^3/uL (150-450); RED BLOOD COUNT 3.58 10^6/uL (4.00-5.40); RED CELL DISTRIBUTION WIDTH 19.1 % (11.5-14.5); WHITE BLOOD COUNT 18.4 10^3/uL (4.0-10.0)
[2018-07-03 12:11] LABS: POSITIVE MORPH POS FLAG
[2018-07-03 12:12] LABS: ADD MANUAL DIFFER YES; DIFF SLIDE NUMBER 261
[2018-07-03 12:18] LABS: INR 1.16; PROTHROMBIN TIME 14.9 SECONDS (12.1-14.4)
[2018-07-03 12:39] LABS: LACTIC ACID SEPSIS PROTOCOL 0.8 MMOL/L (0.4-2.0)
[2018-07-03 12:42] LABS: ALBUMIN/GLOBULIN RATIO 0.83 (1.00-1.93); ALKALINE PHOSPHATASE 127 U/L (45-117); ALT/SGPT 20 U/L (12-78); ANION GAP 14 MEQ/L (8-16); AST/SGOT 14 U/L (7-37); BILIRUBIN,DIRECT 0.1 MG/DL (0.0-0.2); BILIRUBIN,TOTAL 0.4 MG/DL (0.2-1.0); BLOOD UREA NITROGEN 72 MG/DL (7-18); CALCIUM LEVEL 8.4 MG/DL (8.8-10.2); CARBON DIOXIDE LEVEL 25 MEQ/L (21-32); CHLORIDE LEVEL 102 MEQ/L (98-107); CPK CREATINE PHOSPHOKINASE 37 U/L (26-192); CREATININE FOR GFR 7.63 MG/DL (0.55-1.30); GLOMERULAR FILTRATION RATE 5.6 (>45); GLUCOSE, FASTING 104 MG/DL (70-100); MAGNESIUM LEVEL 2.2 MG/DL (1.8-2.4); PHOSPHORUS LEVEL 3.9 MG/DL (2.5-4.9); POTASSIUM SERUM 4.2 MEQ/L (3.5-5.1); SODIUM LEVEL 141 MEQ/L (136-145); TOTAL PROTEIN 6.6 GM/DL (6.4-8.2); TROPONIN I 0.03 NG/ML (< 0.10)
[2018-07-03 12:48] LABS: MB/CK RELATIVE INDEX 10.81 (< OR =4); NT-PRO BNP 24471 PG/ML (<125); THYROID STIMULATING HORMONE 0.236 uIU/ML (0.358-3.740)
[2018-07-03 13:11] LABS: LYMPHOCYTES 4 % (16-52); MONOCYTES 1 % (0-8); NEUTROPHILS 95 % (35-75)
[2018-07-03 13:12] LABS: PLATELET ESTIMATE NORMAL (NORMAL)
[2018-07-03 13:13] LABS: ANISOCYTOSIS 1+; HYPOCHROMASIA 1+; OVALOCYTES 1+
[2018-07-03] MEDS: LOSARTAN 50 MG TAB PO (20:12)
[2018-07-03] MEDS: amLODIPine 10 MG TAB PO (20:19)
[2018-07-03] MEDS: ESCITALOPRAM OXALATE 10 MG TAB (LEXAPRO) PO (20:19)
[2018-07-03] MEDS: CALCIUM ACETATE 667 MG GELCAP PO (20:19)
[2018-07-03] MEDS: NEPHRO-VIT TAB (NEPHROCAPS) PO (21:54)
[2018-07-03] MEDS: LORazepam 1 MG TAB PO (21:54)
[2018-07-03] MEDS: HEPARIN SOD (PORCINE) 5000 UNITS/ML VIAL SC ×2 (21:55→21:56)
[2018-07-03] MEDS: SYMBICORT 160/4.5MCG INHALER 6GM INH (22:20)
[2018-07-04] MEDS: HEPARIN SOD (PORCINE) 5000 UNITS/ML VIAL SC ×3 (05:42→21:48)
[2018-07-04] MEDS: LEVOTHYROXINE 137MCG TABLET (0.137MG) PO (05:59)
[2018-07-04 06:18] LABS: HEMATOCRIT 31.6 % (36.0-47.0); HEMOGLOBIN 9.7 g/dl (12.0-15.5); MEAN CORPUSCULAR HEMOGLOBIN 26.9 pg (27.0-33.0); MEAN CORPUSCULAR HGB CONC 30.7 g/dl (32.0-36.5); MEAN CORPUSCULAR VOLUME 87.5 fl (80.0-96.0); PLATELET COUNT, AUTOMATED 332 10^3/uL (150-450); RED BLOOD COUNT 3.61 10^6/uL (4.00-5.40); RED CELL DISTRIBUTION WIDTH 18.7 % (11.5-14.5); WHITE BLOOD COUNT 16.1 10^3/uL (4.0-10.0)
[2018-07-04 06:33] LABS: ANION GAP 9 MEQ/L (8-16); BLOOD UREA NITROGEN 37 MG/DL (7-18); CALCIUM LEVEL 8.9 MG/DL (8.8-10.2); CARBON DIOXIDE LEVEL 27 MEQ/L (21-32); CHLORIDE LEVEL 106 MEQ/L (98-107); CREATININE FOR GFR 4.15 MG/DL (0.55-1.30); GLOMERULAR FILTRATION RATE 11.3 (>45); GLUCOSE, FASTING 85 MG/DL (70-100); POTASSIUM SERUM 4.3 MEQ/L (3.5-5.1); SODIUM LEVEL 142 MEQ/L (136-145)
[2018-07-04] MEDS: SYMBICORT 160/4.5MCG INHALER 6GM INH ×2 (07:25→21:29)
[2018-07-04] MEDS: NEPHRO-VIT TAB (NEPHROCAPS) PO (08:53)
[2018-07-04] MEDS: amLODIPine 10 MG TAB PO (08:53)
[2018-07-04] MEDS: LOSARTAN 50 MG TAB PO (08:53)
[2018-07-04] MEDS: ASPIRIN 81 MG ENTERIC TAB PO (08:53)
[2018-07-04] MEDS: CALCIUM ACETATE 667 MG GELCAP PO ×3 (08:54→17:45)
[2018-07-04] MEDS: ACETAMINOPHEN TAB 650MG DOSE (2X325MG) PO ×2 (10:24→14:56)
[2018-07-04 16:24] LABS: KETONE, URINE AUTO RFX NEGATIVE (NEGATIVE); MUCUS, URINE RFX SMALL (NEGATIVE); NITRITE, URINE AUTO RFX NEGATIVE (NEGATIVE); RBC, URINE AUTO RFX 3 /HPF (0-3); SPECIFIC GRAVITY UR AUTO RFX 1.013 (1.002-1.035); SQUAM EPITHELIAL CELL UR AURFX 18 /HPF (0-6)
[2018-07-04 16:26] LABS: LEUKOCYTE ESTERASE UR AUTO RFX 1+ (NEGATIVE)
[2018-07-04 16:27] LABS: WBC, URINE AUTO RFX 14 /HPF (0-3)
[2018-07-04] MEDS: ESCITALOPRAM OXALATE 10 MG TAB (LEXAPRO) PO (20:19)
[2018-07-04] MEDS: LORazepam 1 MG TAB PO (20:19)
[2018-07-04 21:12] LABS: ERYTHROCYTE SEDIMENTATION RATE 30 mm/hr (0-30)
[2018-07-04 22:10] LABS: C REACTIVE PROTEIN QUANTITATIV 7.26 MG/DL (0.00-0.30)
[2018-07-05] MEDS: HEPARIN SOD (PORCINE) 5000 UNITS/ML VIAL SC ×3 (05:24→21:03)
[2018-07-05 06:04] LABS: HEMOGLOBIN 9.3 g/dl (12.0-15.5); MEAN CORPUSCULAR HEMOGLOBIN 26.9 pg (27.0-33.0); MEAN CORPUSCULAR VOLUME 89.6 fl (80.0-96.0); PLATELET COUNT, AUTOMATED 281 10^3/uL (150-450); RED BLOOD COUNT 3.46 10^6/uL (4.00-5.40); WHITE BLOOD COUNT 18.3 10^3/uL (4.0-10.0)
[2018-07-05] MEDS: LEVOTHYROXINE 137MCG TABLET (0.137MG) PO (06:10)
[2018-07-05] MEDS: LOSARTAN 50 MG TAB PO (06:10)
[2018-07-05] MEDS: amLODIPine 10 MG TAB PO (06:10)
[2018-07-05] MEDS: NEPHRO-VIT TAB (NEPHROCAPS) PO (06:19)
[2018-07-05 06:21] LABS: ANION GAP 8 MEQ/L (8-16); BLOOD UREA NITROGEN 50 MG/DL (7-18); CALCIUM LEVEL 7.9 MG/DL (8.8-10.2); CARBON DIOXIDE LEVEL 27 MEQ/L (21-32); CHLORIDE LEVEL 107 MEQ/L (98-107); CREATININE FOR GFR 5.29 MG/DL (0.55-1.30); GLOMERULAR FILTRATION RATE 8.6 (>45); GLUCOSE, FASTING 78 MG/DL (70-100); MAGNESIUM LEVEL 1.7 MG/DL (1.8-2.4); POTASSIUM SERUM 4.3 MEQ/L (3.5-5.1); SODIUM LEVEL 142 MEQ/L (136-145)
[2018-07-05] MEDS: CALCIUM ACETATE 667 MG GELCAP PO ×3 (08:28→18:38)
[2018-07-05] MEDS: ACETAMINOPHEN TAB 650MG DOSE (2X325MG) PO (14:16)
[2018-07-05] MEDS: SYMBICORT 160/4.5MCG INHALER 6GM INH ×2 (14:40→19:53)
[2018-07-05] MEDS: IPRATROPIUM 0.5MG/ALBUTEROL 2.5MG INH SOL UD 3ML (DUONEB)(J7620) NEB (14:40)
[2018-07-05] MEDS: CIPROFLOXACIN 200 MG in APPROPRIATE DILUENT 1 EA IV (18:38)
[2018-07-05] MEDS: ESCITALOPRAM OXALATE 10 MG TAB (LEXAPRO) PO (21:35)
[2018-07-06] MEDS: HEPARIN SOD (PORCINE) 5000 UNITS/ML VIAL SC ×3 (06:00→20:03)
[2018-07-06] MEDS: LEVOTHYROXINE 137MCG TABLET (0.137MG) PO (06:02)
[2018-07-06 06:27] LABS: HEMATOCRIT 30.9 % (36.0-47.0); HEMOGLOBIN 9.2 g/dl (12.0-15.5); MEAN CORPUSCULAR HEMOGLOBIN 26.7 pg (27.0-33.0); MEAN CORPUSCULAR HGB CONC 29.8 g/dl (32.0-36.5); MEAN CORPUSCULAR VOLUME 89.6 fl (80.0-96.0); PLATELET COUNT, AUTOMATED 223 10^3/uL (150-450); RED BLOOD COUNT 3.45 10^6/uL (4.00-5.40); WHITE BLOOD COUNT 14.9 10^3/uL (4.0-10.0)
[2018-07-06 06:44] LABS: ANION GAP 9 MEQ/L (8-16); BLOOD UREA NITROGEN 31 MG/DL (7-18); CARBON DIOXIDE LEVEL 31 MEQ/L (21-32); CHLORIDE LEVEL 103 MEQ/L (98-107); CREATININE FOR GFR 3.84 MG/DL (0.55-1.30); GLOMERULAR FILTRATION RATE 12.4 (>45); GLUCOSE, FASTING 67 MG/DL (70-100); MAGNESIUM LEVEL 1.8 MG/DL (1.8-2.4); POTASSIUM SERUM 3.9 MEQ/L (3.5-5.1); SODIUM LEVEL 143 MEQ/L (136-145)
[2018-07-06] MEDS: SYMBICORT 160/4.5MCG INHALER 6GM INH ×2 (07:31→21:00)
[2018-07-06] MEDS: CALCIUM ACETATE 667 MG GELCAP PO ×3 (08:17→17:12)
[2018-07-06] MEDS: ASPIRIN 81 MG ENTERIC TAB PO (08:17)
[2018-07-06] MEDS: NEPHRO-VIT TAB (NEPHROCAPS) PO (08:18)
[2018-07-06] MEDS: amLODIPine 10 MG TAB PO (08:21)
[2018-07-06] MEDS: LOSARTAN 50 MG TAB PO (08:22)
[2018-07-06] MEDS: CIPROFLOXACIN 200 MG in APPROPRIATE DILUENT 1 EA IV (17:12)
[2018-07-06] MEDS: IPRATROPIUM 0.5MG/ALBUTEROL 2.5MG INH SOL UD 3ML (DUONEB)(J7620) NEB (17:18)
[2018-07-06] MEDS: LORazepam 1 MG TAB PO (20:02)
[2018-07-06] MEDS: ESCITALOPRAM OXALATE 10 MG TAB (LEXAPRO) PO (20:03)
[2018-07-06] MEDS: ACETAMINOPHEN TAB 650MG DOSE (2X325MG) PO (21:25)
[2018-07-07] MEDS: HEPARIN SOD (PORCINE) 5000 UNITS/ML VIAL SC ×3 (05:34→21:07)
[2018-07-07] MEDS: LEVOTHYROXINE 137MCG TABLET (0.137MG) PO (05:59)
[2018-07-07] MEDS: NEPHRO-VIT TAB (NEPHROCAPS) PO (06:00)
[2018-07-07] MEDS: CALCIUM ACETATE 667 MG GELCAP PO ×3 (06:00→17:34)
[2018-07-07] MEDS: amLODIPine 10 MG TAB PO (06:00)
[2018-07-07] MEDS: LOSARTAN 50 MG TAB PO (06:00)
[2018-07-07 06:19] LABS: HEMATOCRIT 29.4 % (36.0-47.0); HEMOGLOBIN 8.9 g/dl (12.0-15.5); MEAN CORPUSCULAR HEMOGLOBIN 26.6 pg (27.0-33.0); MEAN CORPUSCULAR HGB CONC 30.3 g/dl (32.0-36.5); MEAN CORPUSCULAR VOLUME 87.8 fl (80.0-96.0); PLATELET COUNT, AUTOMATED 198 10^3/uL (150-450); RED BLOOD COUNT 3.35 10^6/uL (4.00-5.40); RED CELL DISTRIBUTION WIDTH 19.3 % (11.5-14.5); WHITE BLOOD COUNT 12.2 10^3/uL (4.0-10.0)
[2018-07-07 06:34] LABS: ANION GAP 8 MEQ/L (8-16); BLOOD UREA NITROGEN 40 MG/DL (7-18); CALCIUM LEVEL 7.8 MG/DL (8.8-10.2); CARBON DIOXIDE LEVEL 30 MEQ/L (21-32); CHLORIDE LEVEL 102 MEQ/L (98-107); CREATININE FOR GFR 5.09 MG/DL (0.55-1.30); GLOMERULAR FILTRATION RATE 8.9 (>45); GLUCOSE, FASTING 75 MG/DL (70-100); MAGNESIUM LEVEL 1.8 MG/DL (1.8-2.4); POTASSIUM SERUM 3.6 MEQ/L (3.5-5.1); SODIUM LEVEL 140 MEQ/L (136-145)
[2018-07-07] MEDS: SYMBICORT 160/4.5MCG INHALER 6GM INH ×2 (07:38→20:23)
[2018-07-07] MEDS ORDERED: guaiFENesin 200 MG TAB PO (13:15)
[2018-07-07] MEDS ORDERED: PILL CRUSHER/CUTTER 1 EACH XX (13:30)
[2018-07-07] MEDS: CIPROFLOXACIN 200 MG in APPROPRIATE DILUENT 1 EA IV (17:34)
[2018-07-07] MEDS: LORazepam 1 MG TAB PO (20:05)
[2018-07-07] MEDS: ESCITALOPRAM OXALATE 10 MG TAB (LEXAPRO) PO (20:06)
[2018-07-08] MEDS: LEVOTHYROXINE 137MCG TABLET (0.137MG) PO (05:19)
[2018-07-08] MEDS: HEPARIN SOD (PORCINE) 5000 UNITS/ML VIAL SC (05:20)
[2018-07-08 06:20] LABS: HEMATOCRIT 29.3 % (36.0-47.0); HEMOGLOBIN 8.8 g/dl (12.0-15.5); MEAN CORPUSCULAR HEMOGLOBIN 26.7 pg (27.0-33.0); MEAN CORPUSCULAR VOLUME 89.1 fl (80.0-96.0); PLATELET COUNT, AUTOMATED 184 10^3/uL (150-450); RED BLOOD COUNT 3.29 10^6/uL (4.00-5.40); RED CELL DISTRIBUTION WIDTH 19.2 % (11.5-14.5); WHITE BLOOD COUNT 8.4 10^3/uL (4.0-10.0)
[2018-07-08 06:38] LABS: ANION GAP 7 MEQ/L (8-16); BLOOD UREA NITROGEN 27 MG/DL (7-18); CARBON DIOXIDE LEVEL 29 MEQ/L (21-32); CHLORIDE LEVEL 105 MEQ/L (98-107); GLOMERULAR FILTRATION RATE 12.9 (>45); GLUCOSE, FASTING 71 MG/DL (70-100); MAGNESIUM LEVEL 1.8 MG/DL (1.8-2.4); SODIUM LEVEL 141 MEQ/L (136-145)
[2018-07-08] MEDS: CIPROFLOXACIN 250 MG TAB PO (07:56)
[2018-07-08] MEDS: amLODIPine 10 MG TAB PO (07:56)
[2018-07-08] MEDS: ASPIRIN 81 MG ENTERIC TAB PO (07:56)
[2018-07-08] MEDS: CALCIUM ACETATE 667 MG GELCAP PO ×2 (07:57→12:13)
[2018-07-08] MEDS: LOSARTAN 50 MG TAB PO (07:57)
[2018-07-08] MEDS: SYMBICORT 160/4.5MCG INHALER 6GM INH (08:10)
[2018-07-08] MEDS: NEPHRO-VIT TAB (NEPHROCAPS) PO (09:31)
== END 2018-07-08 12:55 | disposition home health service (06) | DRG 291 ==
LOC: M ED 11:19 → M ED INP 18:42 → M MSPAV 19:57
PROC: 5A1D70Z Performance of Urinary Filtration, Intermittent, Less than 6 Hours Per Day (ICD-10-PCS; principal; 2018-07-07)
DX: I13.2 Hypertensive heart and chronic kidney disease with heart failure and with stage 5 chronic kidney disease, or end stage renal disease (principal); N18.6 End stage renal disease; I50.33 Acute on chronic diastolic (congestive) heart failure; Q61.3 Polycystic kidney, unspecified; E46 Unspecified protein-calorie malnutrition; N25.81 Secondary hyperparathyroidism of renal origin; J44.9 Chronic obstructive pulmonary disease, unspecified; Z99.81 Dependence on supplemental oxygen; Z79.899 Other long term (current) drug therapy; Z79.82 Long term (current) use of aspirin; E03.9 Hypothyroidism, unspecified; F32.9 Major depressive disorder, single episode, unspecified; F41.9 Anxiety disorder, unspecified; Z88.8 Allergy status to other drugs, medicaments and biological substances; F17.200 Nicotine dependence, unspecified, uncomplicated; D63.1 Anemia in chronic kidney disease; D72.829 Elevated white blood cell count, unspecified; I27.20 Pulmonary hypertension, unspecified; Z91.19 Patient's noncompliance with other medical treatment and regimen

== ENCOUNTER 2018-07-19 15:29 | Emergency (ER) | payer MEDICARE, MEDICAID ==
[2018-07-19] MEDS: predniSONE 20 MG TAB PO (18:05)
== END 2018-07-19 18:34 | disposition home or self-care (01) ==
LOC: M ED 15:29
DX: J45.909 Unspecified asthma, uncomplicated (principal); J44.9 Chronic obstructive pulmonary disease, unspecified; E03.9 Hypothyroidism, unspecified; N18.6 End stage renal disease; I11.0 Hypertensive heart disease with heart failure; I50.9 Heart failure, unspecified; I27.20 Pulmonary hypertension, unspecified; Q61.3 Polycystic kidney, unspecified; F17.200 Nicotine dependence, unspecified, uncomplicated; Z88.8 Allergy status to other drugs, medicaments and biological substances; Z79.899 Other long term (current) drug therapy; Z79.51 Long term (current) use of inhaled steroids; Z79.82 Long term (current) use of aspirin
CPT/HCPCS: 71046

== ENCOUNTER 2018-08-07 14:39 | Emergency (ER) | payer MEDICARE, MEDICAID ==
[2018-08-07 15:38] LABS: HEMATOCRIT 30.3 % (36.0-47.0); HEMOGLOBIN 9.1 g/dl (12.0-15.5); MEAN CORPUSCULAR HEMOGLOBIN 28.9 pg (27.0-33.0); MEAN CORPUSCULAR VOLUME 96.2 fl (80.0-96.0); PLATELET COUNT, AUTOMATED 162 10^3/uL (150-450); RED BLOOD COUNT 3.15 10^6/uL (4.00-5.40); RED CELL DISTRIBUTION WIDTH 25.2 % (11.5-14.5); WHITE BLOOD COUNT 14.5 10^3/uL (4.0-10.0)
[2018-08-07 16:34] LABS: ANION GAP 14 MEQ/L (8-16); BLOOD UREA NITROGEN 32 MG/DL (7-18); CALCIUM LEVEL 7.8 MG/DL (8.8-10.2); CARBON DIOXIDE LEVEL 24 MEQ/L (21-32); CHLORIDE LEVEL 101 MEQ/L (98-107); CREATININE FOR GFR 3.98 MG/DL (0.55-1.30); GLOMERULAR FILTRATION RATE 11.9 (>45); GLUCOSE, FASTING 130 MG/DL (70-100); POTASSIUM SERUM 3.7 MEQ/L (3.5-5.1); SODIUM LEVEL 139 MEQ/L (136-145)
[2018-08-07 16:38] LABS: HEMATOCRIT 30.4 % (36.0-47.0); HEMOGLOBIN 9.2 g/dl (12.0-15.5); MEAN CORPUSCULAR HEMOGLOBIN 28.9 pg (27.0-33.0); MEAN CORPUSCULAR HGB CONC 30.3 g/dl (32.0-36.5); MEAN CORPUSCULAR VOLUME 95.6 fl (80.0-96.0); PLATELET COUNT, AUTOMATED 166 10^3/uL (150-450); RED BLOOD COUNT 3.18 10^6/uL (4.00-5.40); RED CELL DISTRIBUTION WIDTH 24.9 % (11.5-14.5); WHITE BLOOD COUNT 13.5 10^3/uL (4.0-10.0)
[2018-08-07] MEDS: NORCO, ANEXSIA 5/325MG TABLET (HYDROcodone/ACETAMINOPHEN) PO ×2 (18:14→22:41)
[2018-08-07 20:26] LABS: HEMATOCRIT 26.2 % (36.0-47.0); HEMOGLOBIN 7.7 g/dl (12.0-15.5)
== END 2018-08-07 23:17 | disposition home or self-care (01) ==
LOC: M ED 14:39
DX: D50.0 Iron deficiency anemia secondary to blood loss (chronic) (principal); T82.838A Hemorrhage due to vascular prosthetic devices, implants and grafts, initial encounter; X58.XXXA Exposure to other specified factors, initial encounter; Y92.89 Other specified places as the place of occurrence of the external cause; I50.9 Heart failure, unspecified; J44.9 Chronic obstructive pulmonary disease, unspecified; G89.4 Chronic pain syndrome; N18.6 End stage renal disease; Z99.2 Dependence on renal dialysis; Z79.899 Other long term (current) drug therapy; Z79.82 Long term (current) use of aspirin; Z79.890 Hormone replacement therapy; Z88.8 Allergy status to other drugs, medicaments and biological substances; Z87.891 Personal history of nicotine dependence
CPT/HCPCS: 80048

== ENCOUNTER → 2018-08-24 | Outpatient (CLI) | payer MEDICARE, MEDICAID | LOC: M RAD 12:07 | DX: M51.36 Other intervertebral disc degeneration, lumbar region (principal); M16.11 Unilateral primary osteoarthritis, right hip | CPT/HCPCS: 72110 ==

== ENCOUNTER 2018-09-06 09:03 | Observation (INO) | payer MEDICARE, MEDICAID ==
[2018-09-06] MEDS: NS 500 ML IV ×2 (10:45)
[2018-09-06 11:03] LABS: ABG BASE EXCESS 0.8 (-2.0-2.0); ABG HCO3 24.3 MEQ/L (22.0-26.0); ABG O2 SATURATION 95.4 % (95.0-99.0); ABG PARTIAL PRESSURE O2 73.9 mmHg (75.0-100.0); ABG STANDARD HCO3 25.1 MEQ/L (22.0-26.0); ABG TOTAL CO2 25.4 MEQ/L (23.0-31.0); ABG pH (ARTERIAL) 7.459 UNITS (7.350-7.450)
[2018-09-06 11:26] LABS: BASO % 0.3 % (0.0-1.0); EOS % 0.3 % (0.0-3.0); HEMATOCRIT 37.6 % (36.0-47.0); HEMOGLOBIN 11.1 g/dl (12.0-15.5); IMMATURE GRANULOCYTE % 0.9 % (0-3.0); LYMPH # 0.9 10^3/uL (1.5-4.5); LYMPH % 7.8 % (24.0-44.0); MEAN CORPUSCULAR HEMOGLOBIN 26.7 pg (27.0-33.0); MEAN CORPUSCULAR HGB CONC 29.5 g/dl (32.0-36.5); MEAN CORPUSCULAR VOLUME 90.4 fl (80.0-96.0); MONO # 0.6 10^3/uL (0.0-0.8); MONO % 5.5 % (0.0-5.0); NEUTROPHILS # 9.4 10^3/uL (1.8-7.7); NEUTROPHILS % 85.2 % (36.0-66.0); PLATELET COUNT, AUTOMATED 174 10^3/uL (150-450); RED BLOOD COUNT 4.16 10^6/uL (4.00-5.40); RED CELL DISTRIBUTION WIDTH 19.4 % (11.5-14.5); WHITE BLOOD COUNT 11.1 10^3/uL (4.0-10.0)
[2018-09-06 11:52] LABS: AMMONIA < 10 uMOL/L (<32)
[2018-09-06 11:55] LABS: LACTIC ACID SEPSIS PROTOCOL 0.9 MMOL/L (0.4-2.0)
[2018-09-06 12:14] LABS: ALBUMIN 2.5 GM/DL (3.2-5.2); ALBUMIN/GLOBULIN RATIO 0.89 (1.00-1.93); ALKALINE PHOSPHATASE 155 U/L (45-117); ALT/SGPT 24 U/L (12-78); ANION GAP 14 MEQ/L (8-16); AST/SGOT 19 U/L (7-37); BILIRUBIN,DIRECT 0.3 MG/DL (0.0-0.2); BILIRUBIN,TOTAL 0.9 MG/DL (0.2-1.0); BLOOD UREA NITROGEN 36 MG/DL (7-18); CALCIUM LEVEL 7.5 MG/DL (8.8-10.2); CARBON DIOXIDE LEVEL 27 MEQ/L (21-32); CHLORIDE LEVEL 99 MEQ/L (98-107); CPK CREATINE PHOSPHOKINASE 28 U/L (26-192); CREATININE FOR GFR 5.36 MG/DL (0.55-1.30); GLOMERULAR FILTRATION RATE 8.4 (>45); GLUCOSE, FASTING 47 MG/DL (70-100); MB/CK RELATIVE INDEX 11.07 (< OR =4); POTASSIUM SERUM 3.4 MEQ/L (3.5-5.1); SODIUM LEVEL 140 MEQ/L (136-145); THYROID STIMULATING HORMONE 0.303 uIU/ML (0.358-3.740); TOTAL PROTEIN 5.3 GM/DL (6.4-8.2); TROPONIN I 0.17 NG/ML (< 0.10)
[2018-09-06 12:41] LABS: BEDSIDE GLUCOSE 67 MG/DL (80-115)
[2018-09-06] MEDS ORDERED: ONDANSETRON 4MG/2ML VIAL (J2405) IV ×2 (14:15)
[2018-09-06] MEDS ORDERED: IPRATROPIUM 0.5MG/ALBUTEROL 2.5MG INH SOL UD 3ML (DUONEB)(J7620) NEB ×2 (14:15)
[2018-09-06 15:10] LABS: MAGNESIUM LEVEL 2.1 MG/DL (1.8-2.4)
[2018-09-06] MEDS: IPRATROPIUM 0.5MG/ALBUTEROL 2.5MG INH SOL UD 3ML (DUONEB)(J7620) NEB ×4 (15:19→20:00)
[2018-09-06] MEDS ORDERED: GLUCAGON FOR INJ 1 MG VIAL (J1610) SC ×2 (17:00)
[2018-09-06] MEDS ORDERED: DEXTROSE 50% 50 ML SYRINGE IV ×2 (17:00)
[2018-09-06] MEDS ORDERED: GLUCOSE 4 GM CHEW TABLET PO ×2 (17:00)
[2018-09-06] MEDS: LOSARTAN 50 MG TAB PO ×2 (18:14)
[2018-09-06] MEDS: amLODIPine 10 MG TAB PO ×2 (18:14)
[2018-09-06] MEDS: CALCIUM ACETATE 667 MG GELCAP PO ×2 (18:14)
[2018-09-06] MEDS: ASPIRIN 81 MG ENTERIC TAB PO ×2 (18:14)
[2018-09-06] MEDS: LIDOCAINE 5% (LIDODERM) PATCH TD ×2 (18:17)
[2018-09-06] MEDS: HEPARIN SOD (PORCINE) 5000 UNITS/ML VIAL SC ×4 (18:18→21:53)
[2018-09-06 19:06] LABS: ANION GAP 12 MEQ/L (8-16); BLOOD UREA NITROGEN 42 MG/DL (7-18); CALCIUM LEVEL 7.7 MG/DL (8.8-10.2); CARBON DIOXIDE LEVEL 27 MEQ/L (21-32); CHLORIDE LEVEL 102 MEQ/L (98-107); CPK CREATINE PHOSPHOKINASE 35 U/L (26-192); CREATININE FOR GFR 5.29 MG/DL (0.55-1.30); GLOMERULAR FILTRATION RATE 8.6 (>45); GLUCOSE, FASTING 122 MG/DL (70-100); MB/CK RELATIVE INDEX 8.86 (< OR =4); POTASSIUM SERUM 3.8 MEQ/L (3.5-5.1); SODIUM LEVEL 141 MEQ/L (136-145); TROPONIN I 0.22 NG/ML (< 0.10)
[2018-09-06] MEDS: SYMBICORT 160/4.5MCG INHALER 6GM INH ×2 (20:02)
[2018-09-06 20:26] LABS: BEDSIDE GLUCOSE 189 MG/DL (80-115)
[2018-09-06] MEDS: **NOTE PATIENT COMMENT** MISC XX ×2 (21:00)
[2018-09-06] MEDS ORDERED: ESCITALOPRAM OXALATE 10 MG TAB (LEXAPRO) PO ×4 (21:00)
[2018-09-06] MEDS: ESCITALOPRAM OXALATE 10 MG TAB (LEXAPRO) PO ×2 (21:52)
[2018-09-06 23:14] LABS: BEDSIDE GLUCOSE 118 MG/DL (80-115)
[2018-09-06 23:14] LABS: BEDSIDE GLUCOSE 128 MG/DL (80-115)
[2018-09-07 00:38] LABS: BEDSIDE GLUCOSE 105 MG/DL (80-115)
[2018-09-07] MEDS: IPRATROPIUM 0.5MG/ALBUTEROL 2.5MG INH SOL UD 3ML (DUONEB)(J7620) NEB ×8 (01:32→20:00)
[2018-09-07] MEDS: ACETAMINOPHEN TAB 650MG DOSE (2X325MG) PO ×2 (01:58)
[2018-09-07 02:34] LABS: CPK CREATINE PHOSPHOKINASE 21 U/L (26-192); TROPONIN I 0.21 NG/ML (< 0.10)
[2018-09-07 02:51] LABS: BEDSIDE GLUCOSE 119 MG/DL (80-115)
[2018-09-07 06:26] LABS: BASO % 0.3 % (0.0-1.0); EOS # 0.2 10^3/uL (0.0-0.50); EOS % 1.6 % (0.0-3.0); HEMATOCRIT 34.6 % (36.0-47.0); HEMOGLOBIN 10.6 g/dl (12.0-15.5); IMMATURE GRANULOCYTE % 0.5 % (0-3.0); LYMPH # 1.4 10^3/uL (1.5-4.5); LYMPH % 13.6 % (24.0-44.0); MEAN CORPUSCULAR HEMOGLOBIN 26.4 pg (27.0-33.0); MEAN CORPUSCULAR HGB CONC 30.6 g/dl (32.0-36.5); MEAN CORPUSCULAR VOLUME 86.1 fl (80.0-96.0); MONO # 0.8 10^3/uL (0.0-0.8); MONO % 7.5 % (0.0-5.0); NEUTROPHILS # 7.6 10^3/uL (1.8-7.7); NEUTROPHILS % 76.5 % (36.0-66.0); PLATELET COUNT, AUTOMATED 187 10^3/uL (150-450); RED BLOOD COUNT 4.02 10^6/uL (4.00-5.40); RED CELL DISTRIBUTION WIDTH 19.5 % (11.5-14.5)
[2018-09-07] MEDS: LEVOTHYROXINE 137MCG TABLET (0.137MG) PO ×2 (06:42)
[2018-09-07] MEDS: HEPARIN SOD (PORCINE) 5000 UNITS/ML VIAL SC ×8 (06:42→21:47)
[2018-09-07 07:05] LABS: ALBUMIN 2.2 GM/DL (3.2-5.2); ALBUMIN/GLOBULIN RATIO 0.71 (1.00-1.93); ALKALINE PHOSPHATASE 163 U/L (45-117); ALT/SGPT 25 U/L (12-78); ANION GAP 12 MEQ/L (8-16); AST/SGOT 22 U/L (7-37); BILIRUBIN,TOTAL 0.7 MG/DL (0.2-1.0); BLOOD UREA NITROGEN 46 MG/DL (7-18); CALCIUM LEVEL 7.3 MG/DL (8.8-10.2); CARBON DIOXIDE LEVEL 25 MEQ/L (21-32); CHLORIDE LEVEL 101 MEQ/L (98-107); CREATININE FOR GFR 5.76 MG/DL (0.55-1.30); GLOMERULAR FILTRATION RATE 7.8 (>45); GLUCOSE, FASTING 89 MG/DL (70-100); POTASSIUM SERUM 3.6 MEQ/L (3.5-5.1); SODIUM LEVEL 138 MEQ/L (136-145); T UPTAKE 36 % (30-39); THYROXINE (T4) 8.4 UG/DL (4.5-12.0); TOTAL PROTEIN 5.3 GM/DL (6.4-8.2)
[2018-09-07 07:06] LABS: THYROID STIMULATING HORMONE 0.282 uIU/ML (0.358-3.740)
[2018-09-07] MEDS: TIOTROPIUM INHALER/CAPSULE (SPIRIVA) INH ×2 (07:36)
[2018-09-07] MEDS: SYMBICORT 160/4.5MCG INHALER 6GM INH ×4 (07:36→20:15)
[2018-09-07] MEDS: CALCIUM ACETATE 667 MG GELCAP PO ×6 (08:00→17:31)
[2018-09-07] MEDS: LIDOCAINE 1% SDV 5 ML VIAL SQ ×2 (11:00)
[2018-09-07] MEDS: ASPIRIN 81 MG ENTERIC TAB PO ×2 (12:05)
[2018-09-07] MEDS: LOSARTAN 50 MG TAB PO ×2 (12:05)
[2018-09-07] MEDS: amLODIPine 10 MG TAB PO ×2 (12:05)
[2018-09-07] MEDS: LIDOCAINE 5% (LIDODERM) PATCH TD ×2 (12:06)
[2018-09-07 12:22] LABS: CPK CREATINE PHOSPHOKINASE 21 U/L (26-192)
[2018-09-07] MEDS: **NOTE PATIENT COMMENT** MISC XX ×2 (21:00)
[2018-09-07] MEDS: ESCITALOPRAM OXALATE 10 MG TAB (LEXAPRO) PO ×2 (21:47)
[2018-09-08] MEDS: IPRATROPIUM 0.5MG/ALBUTEROL 2.5MG INH SOL UD 3ML (DUONEB)(J7620) NEB ×8 (01:55→20:00)
[2018-09-08 04:24] LABS: BEDSIDE GLUCOSE 105 MG/DL (80-115)
[2018-09-08] MEDS: LEVOTHYROXINE 137MCG TABLET (0.137MG) PO ×2 (05:51)
[2018-09-08] MEDS: HEPARIN SOD (PORCINE) 5000 UNITS/ML VIAL SC ×8 (05:52→22:00)
[2018-09-08] MEDS: ACETAMINOPHEN TAB 650MG DOSE (2X325MG) PO ×2 (05:52)
[2018-09-08 06:07] LABS: BASO % 0.5 % (0.0-1.0); EOS # 0.2 10^3/uL (0.0-0.50); EOS % 1.8 % (0.0-3.0); HEMATOCRIT 35.8 % (36.0-47.0); HEMOGLOBIN 10.6 g/dl (12.0-15.5); IMMATURE GRANULOCYTE % 0.5 % (0-3.0); LYMPH # 1.5 10^3/uL (1.5-4.5); LYMPH % 16.8 % (24.0-44.0); MEAN CORPUSCULAR HEMOGLOBIN 26.4 pg (27.0-33.0); MEAN CORPUSCULAR HGB CONC 29.6 g/dl (32.0-36.5); MEAN CORPUSCULAR VOLUME 89.1 fl (80.0-96.0); MONO # 0.7 10^3/uL (0.0-0.8); MONO % 7.7 % (0.0-5.0); NEUTROPHILS # 6.3 10^3/uL (1.8-7.7); NEUTROPHILS % 72.7 % (36.0-66.0); PLATELET COUNT, AUTOMATED 168 10^3/uL (150-450); RED BLOOD COUNT 4.02 10^6/uL (4.00-5.40); RED CELL DISTRIBUTION WIDTH 19.3 % (11.5-14.5); WHITE BLOOD COUNT 8.7 10^3/uL (4.0-10.0)
[2018-09-08 06:28] LABS: ALBUMIN 2.4 GM/DL (3.2-5.2); ALBUMIN/GLOBULIN RATIO 0.73 (1.00-1.93); ALKALINE PHOSPHATASE 176 U/L (45-117); ALT/SGPT 25 U/L (12-78); ANION GAP 10 MEQ/L (8-16); AST/SGOT 22 U/L (7-37); BILIRUBIN,TOTAL 0.7 MG/DL (0.2-1.0); BLOOD UREA NITROGEN 32 MG/DL (7-18); CALCIUM LEVEL 7.9 MG/DL (8.8-10.2); CARBON DIOXIDE LEVEL 27 MEQ/L (21-32); CHLORIDE LEVEL 100 MEQ/L (98-107); CREATININE FOR GFR 3.91 MG/DL (0.55-1.30); GLOMERULAR FILTRATION RATE 12.1 (>45); GLUCOSE, FASTING 81 MG/DL (70-100); POTASSIUM SERUM 3.6 MEQ/L (3.5-5.1); SODIUM LEVEL 137 MEQ/L (136-145); TOTAL PROTEIN 5.7 GM/DL (6.4-8.2)
[2018-09-08] MEDS: SYMBICORT 160/4.5MCG INHALER 6GM INH ×4 (08:10→20:00)
[2018-09-08] MEDS: TIOTROPIUM INHALER/CAPSULE (SPIRIVA) INH ×2 (08:10)
[2018-09-08] MEDS: LOSARTAN 50 MG TAB PO ×2 (08:57)
[2018-09-08] MEDS: ASPIRIN 81 MG ENTERIC TAB PO ×2 (08:58)
[2018-09-08] MEDS: amLODIPine 10 MG TAB PO ×2 (08:58)
[2018-09-08] MEDS: CALCIUM ACETATE 667 MG GELCAP PO ×6 (08:59→17:47)
[2018-09-08] MEDS: LIDOCAINE 5% (LIDODERM) PATCH TD ×2 (08:59)
[2018-09-08] MEDS: ESCITALOPRAM OXALATE 10 MG TAB (LEXAPRO) PO ×2 (20:31)
[2018-09-08] MEDS: **NOTE PATIENT COMMENT** MISC XX ×2 (20:31)
[2018-09-09] MEDS: IPRATROPIUM 0.5MG/ALBUTEROL 2.5MG INH SOL UD 3ML (DUONEB)(J7620) NEB ×2 (02:00)
[2018-09-09] MEDS: HEPARIN SOD (PORCINE) 5000 UNITS/ML VIAL SC ×2 (06:00)
[2018-09-09 06:31] LABS: BASO % 0.5 % (0.0-1.0); EOS # 0.2 10^3/uL (0.0-0.50); EOS % 2.1 % (0.0-3.0); HEMATOCRIT 30.2 % (36.0-47.0); IMMATURE GRANULOCYTE % 0.4 % (0-3.0); LYMPH # 1.2 10^3/uL (1.5-4.5); LYMPH % 16.1 % (24.0-44.0); MEAN CORPUSCULAR HEMOGLOBIN 26.2 pg (27.0-33.0); MEAN CORPUSCULAR HGB CONC 29.8 g/dl (32.0-36.5); MONO # 0.6 10^3/uL (0.0-0.8); MONO % 8.1 % (0.0-5.0); NEUTROPHILS # 5.6 10^3/uL (1.8-7.7); NEUTROPHILS % 72.8 % (36.0-66.0); PLATELET COUNT, AUTOMATED 158 10^3/uL (150-450); RED BLOOD COUNT 3.43 10^6/uL (4.00-5.40); RED CELL DISTRIBUTION WIDTH 19.4 % (11.5-14.5); WHITE BLOOD COUNT 7.7 10^3/uL (4.0-10.0)
[2018-09-09] MEDS: LEVOTHYROXINE 137MCG TABLET (0.137MG) PO ×2 (06:50)
[2018-09-09 07:02] LABS: ALBUMIN 2.2 GM/DL (3.2-5.2); ALBUMIN/GLOBULIN RATIO 0.76 (1.00-1.93); ALKALINE PHOSPHATASE 158 U/L (45-117); ALT/SGPT 25 U/L (12-78); ANION GAP 6 MEQ/L (8-16); AST/SGOT 20 U/L (7-37); BILIRUBIN,TOTAL 0.5 MG/DL (0.2-1.0); BLOOD UREA NITROGEN 20 MG/DL (7-18); CALCIUM LEVEL 8.5 MG/DL (8.8-10.2); CARBON DIOXIDE LEVEL 30 MEQ/L (21-32); CHLORIDE LEVEL 106 MEQ/L (98-107); CREATININE FOR GFR 2.49 MG/DL (0.55-1.30); GLOMERULAR FILTRATION RATE 20.4 (>45); GLUCOSE, FASTING 70 MG/DL (70-100); POTASSIUM SERUM 3.9 MEQ/L (3.5-5.1); SODIUM LEVEL 142 MEQ/L (136-145); TOTAL PROTEIN 5.1 GM/DL (6.4-8.2)
[2018-09-09] MEDS: TIOTROPIUM INHALER/CAPSULE (SPIRIVA) INH ×2 (07:15)
[2018-09-09] MEDS: SYMBICORT 160/4.5MCG INHALER 6GM INH ×2 (07:15)
[2018-09-09] MEDS: amLODIPine 10 MG TAB PO ×2 (08:04)
[2018-09-09] MEDS: CALCIUM ACETATE 667 MG GELCAP PO ×4 (08:05→12:34)
[2018-09-09] MEDS: ASPIRIN 81 MG ENTERIC TAB PO ×2 (08:05)
[2018-09-09] MEDS: LIDOCAINE 5% (LIDODERM) PATCH TD ×2 (08:05)
[2018-09-09] MEDS: LOSARTAN 50 MG TAB PO ×2 (08:06)
== END 2018-09-09 13:21 | disposition home or self-care (01) ==
LOC: M ED 09:03 → M ED INP 13:01 → M MSPAV 17:02
DX: G93.41 Metabolic encephalopathy (principal); G89.29 Other chronic pain; N18.6 End stage renal disease; I12.0 Hypertensive chronic kidney disease with stage 5 chronic kidney disease or end stage renal disease; I50.32 Chronic diastolic (congestive) heart failure; J44.9 Chronic obstructive pulmonary disease, unspecified; R62.7 Adult failure to thrive; E43 Unspecified severe protein-calorie malnutrition; E03.9 Hypothyroidism, unspecified; R79.89 Other specified abnormal findings of blood chemistry; R64 Cachexia; R19.7 Diarrhea, unspecified; Z79.899 Other long term (current) drug therapy; Z79.82 Long term (current) use of aspirin; Z79.51 Long term (current) use of inhaled steroids; Z99.81 Dependence on supplemental oxygen; Q61.2 Polycystic kidney, adult type; Q44.6 Cystic disease of liver
CPT/HCPCS: 71045

== ENCOUNTER 2018-10-03 08:48 | Day surgery (SDC) | payer MEDICARE, MEDICAID ==
[~2018-10-03 08:48] MED LIST changes: -ACTI1TAB PO; -ALBU17IN INH; -ALBU83IN INH; -ALDA25TA2 PO; -AMLO5TAB2 PO; -ASPI1TAB PO; -ASPI81CH PO; -ASPI81TAEC PO; -ATEN25TA PO; -ATEN50TA2 PO; -ATIV1TAB10 PO; -ATRO0.063 INH; -AZIT-12 PO; -AZIT500T2 PO; -BACITAB PO; -CALC1CAP31 PO; -CEFT1INJ65 IV; -CEPA5.4L2 MT; -COZA100T2 PO; -DICL1GEL3 TD; -DICL1GEL3 TOP; -DOXY100C PO; -DRIS50002 PO; -FLAG500T PO; -FLUC100T PO; -FURO40TA2 PO; -HYDR25TA PO; -Home Oxygen; -INCR1INH INH; -LEVA1TAB2 PO; -LEVA750T7 PO; -LEVO125T41 PO; -LEVO88TA3 PO; -LEXA1TAB PO; -LEXA1TAB2 PO; -LORA1TAB12 PO; -LOSA100T36 PO; -LOSA25TA8 PO; -MEDR4PAK PO; -MEGE20TA3 PO; +MIDAZOLAM INJ 2 MG/2 ML VIAL (J2250) As Ordered; -MINO2.5T PO; -MIRA33504 PO; -NICO21PAT TD; -NORV5TAB PO; -OCEA0.654; -OXYC1TAB23 PO; -PERC5TAB12 PO; +PHENYLEPHRINE HCL 10 % OPHTH. SOL 5ML OD; -PRED10PA PO; -PRED10TA PO; -PRED10TA2 PO; -PRED20TA PO; -PRED25TA PO; -PRED5TA PO; -PROT1TAB2 PO; -RENATAB6 PO; -SODI325T9 PO; -SYMB16INH INH; -SYMB80INH INH; -SYNT137T7 PO; -TYLE325T5 PO; -[UNRECOGNIZED DRUG - OTHER]; +fentaNYL 100 MCG/2 ML INJECTION (J3010) As Ordered; -prednisone PO
[2018-10-03] MEDS: LIDOCAINE 3.5 % 1ML OPHTH TOPICAL GEL OU (09:39)
[2018-10-03] MEDS: CYCLOPENTOLATE 2% OPHTH SOLN 2ML BTL OD (09:39)
[2018-10-03] MEDS: TROPICAMIDE 1% OPHTH SOLN 2ML OD (09:39)
[2018-10-03] MEDS: OFLOXACIN 0.3 % (OCUFLOX) OPTH SOL 5ML OD (09:39)
[2018-10-03] MEDS: PHENYLEPHRINE 2.5% OPHTH SOL 2ML OD (09:39)
[2018-10-03 09:40] LABS: POTASSIUM SERUM 4.1 MEQ/L (3.5-5.1)
[2018-10-03] MEDS ORDERED: ALBUTEROL SULFATE 2.5 MG/0.5 ML INH NEB SOLN As Ordered (10:05)
[2018-10-03] MEDS ORDERED: ALBUTEROL SULFATE 2.5 MG/0.5 ML INH NEB SOLN INH (10:30)
[2018-10-03] MEDS: POVIDONE-IODINE 5% OPHTH PREP SOL 30ML As Ordered (11:21)
[2018-10-03] MEDS: LIDOCAINE 1% SDV 5 ML VIAL As Ordered (11:23)
[2018-10-03] MEDS: HEALON DUET PRO(HEALON 10MG/ML 0.55ML & HEALON ENDOCOAT 30MG/ML 0.85ML) As Ordered (11:23)
[2018-10-03] MEDS: TRIAMCINOLONE PRES FR 40 MG/ML 1ML(TRIESENCE)(OR EYE ONLY)(J3300 PER 1MG) As Ordered (11:24)
[2018-10-03] MEDS: BSS with VANC/TOB/EPI for EYE CASES IR (11:24)
[2018-10-03] MEDS: MOXIFLOXACIN IN BSS 0.25MG/0.25ML INTRACAMERAL INJ (OR EYE ONLY)(J2280) As Ordered (11:24)
== END 2018-10-03 12:35 | disposition home or self-care (01) ==
LOC: M SDC 08:48
DX: H26.9 Unspecified cataract (principal); I12.9 Hypertensive chronic kidney disease with stage 1 through stage 4 chronic kidney disease, or unspecified chronic kidney disease; E03.9 Hypothyroidism, unspecified; K21.9 Gastro-esophageal reflux disease without esophagitis; R06.02 Shortness of breath; M12.9 Arthropathy, unspecified; M54.2 Cervicalgia; M81.0 Age-related osteoporosis without current pathological fracture; F41.9 Anxiety disorder, unspecified; F32.9 Major depressive disorder, single episode, unspecified; J44.9 Chronic obstructive pulmonary disease, unspecified; Q61.2 Polycystic kidney, adult type; N18.9 Chronic kidney disease, unspecified; Z88.8 Allergy status to other drugs, medicaments and biological substances; Z79.899 Other long term (current) drug therapy; Z79.82 Long term (current) use of aspirin; Z86.19 Personal history of other infectious and parasitic diseases; Z87.19 Personal history of other diseases of the digestive system; Z86.2 Personal history of diseases of the blood and blood-forming organs and certain disorders involving the immune mechanism; Z87.09 Personal history of other diseases of the respiratory system; Z78.0 Asymptomatic menopausal state; Z72.0 Tobacco use
CPT/HCPCS: 66984

== ENCOUNTER 2018-10-06 12:06 | Inpatient (IN) | payer MEDICARE, MEDICAID ==
[2018-10-06] MEDS: NICOTINE 14 MG/24 HR TRANSDERMAL TD (09:00)
[2018-10-06 14:14] LABS: BASO % 0.3 % (0.0-1.0); HEMATOCRIT 41.9 % (36.0-47.0); HEMOGLOBIN 12.4 g/dl (12.0-15.5); IMMATURE GRANULOCYTE % 0.5 % (0-3.0); LYMPH # 0.3 10^3/uL (1.5-4.5); LYMPH % 3.3 % (24.0-44.0); MEAN CORPUSCULAR HEMOGLOBIN 27.9 pg (27.0-33.0); MEAN CORPUSCULAR HGB CONC 29.6 g/dl (32.0-36.5); MEAN CORPUSCULAR VOLUME 94.2 fl (80.0-96.0); MONO # 0.1 10^3/uL (0.0-0.8); MONO % 1.4 % (0.0-5.0); NEUTROPHILS # 7.3 10^3/uL (1.8-7.7); NEUTROPHILS % 94.5 % (36.0-66.0); PLATELET COUNT, AUTOMATED 133 10^3/uL (150-450); RED BLOOD COUNT 4.45 10^6/uL (4.00-5.40); RED CELL DISTRIBUTION WIDTH 23.4 % (11.5-14.5); WHITE BLOOD COUNT 7.7 10^3/uL (4.0-10.0)
[2018-10-06 14:28] LABS: POSITIVE DIFF POS FLAG
[2018-10-06 14:41] LABS: ANION GAP 12 MEQ/L (8-16); BLOOD UREA NITROGEN 67 MG/DL (7-18); CALCIUM LEVEL 7.4 MG/DL (8.8-10.2); CARBON DIOXIDE LEVEL 23 MEQ/L (21-32); CHLORIDE LEVEL 103 MEQ/L (98-107); CPK CREATINE PHOSPHOKINASE 46 U/L (26-192); CREATININE FOR GFR 6.46 MG/DL (0.55-1.30); GLOMERULAR FILTRATION RATE 6.8 (>45); GLUCOSE, FASTING 100 MG/DL (70-100); MB/CK RELATIVE INDEX 11.96 (< OR =4); POTASSIUM SERUM 4.6 MEQ/L (3.5-5.1); SODIUM LEVEL 138 MEQ/L (136-145); TROPONIN I 0.04 NG/ML (< 0.10)
[2018-10-06] MEDS: SYMBICORT 160/4.5MCG INHALER 6GM INH (20:00)
[2018-10-06] MEDS: IPRATROPIUM 0.5MG/ALBUTEROL 2.5MG INH SOL UD 3ML (DUONEB)(J7620) NEB (20:29)
[2018-10-06] MEDS: ESCITALOPRAM OXALATE 10 MG TAB (LEXAPRO) PO (22:22)
[2018-10-06] MEDS: CALCIUM ACETATE 667 MG GELCAP PO (22:22)
[2018-10-06] MEDS: LORazepam 1 MG TAB PO (22:22)
[2018-10-07] MEDS: IPRATROPIUM 0.5MG/ALBUTEROL 2.5MG INH SOL UD 3ML (DUONEB)(J7620) NEB ×2 (00:50→18:00)
[2018-10-07] MEDS: amLODIPine 10 MG TAB PO ×3 (01:56→18:35)
[2018-10-07 04:50] LABS: HEMATOCRIT 41.2 % (36.0-47.0); HEMOGLOBIN 12.4 g/dl (12.0-15.5); MEAN CORPUSCULAR HEMOGLOBIN 27.6 pg (27.0-33.0); MEAN CORPUSCULAR HGB CONC 30.1 g/dl (32.0-36.5); MEAN CORPUSCULAR VOLUME 91.6 fl (80.0-96.0); PLATELET COUNT, AUTOMATED 160 10^3/uL (150-450); RED CELL DISTRIBUTION WIDTH 23.2 % (11.5-14.5); WHITE BLOOD COUNT 9.7 10^3/uL (4.0-10.0)
[2018-10-07 05:11] LABS: ANION GAP 8 MEQ/L (8-16); BLOOD UREA NITROGEN 31 MG/DL (7-18); CALCIUM LEVEL 7.8 MG/DL (8.8-10.2); CARBON DIOXIDE LEVEL 28 MEQ/L (21-32); CHLORIDE LEVEL 102 MEQ/L (98-107); GLOMERULAR FILTRATION RATE 12.9 (>45); GLUCOSE, FASTING 72 MG/DL (70-100); POTASSIUM SERUM 3.7 MEQ/L (3.5-5.1); SODIUM LEVEL 138 MEQ/L (136-145)
[2018-10-07] MEDS: LEVOTHYROXINE 137MCG TABLET (0.137MG) PO (05:32)
[2018-10-07] MEDS: PERCOCET 5MG/325MG TAB PO ×2 (07:51→18:36)
[2018-10-07] MEDS: CALCIUM ACETATE 667 MG GELCAP PO ×3 (08:16→17:52)
[2018-10-07] MEDS: LOSARTAN 50 MG TAB PO (08:17)
[2018-10-07] MEDS: NICOTINE 14 MG/24 HR TRANSDERMAL TD (08:18)
[2018-10-07] MEDS: SYMBICORT 160/4.5MCG INHALER 6GM INH ×2 (08:34→20:37)
[2018-10-07] MEDS: HEPARIN SOD (PORCINE) 5000 UNITS/ML VIAL SQ ×4 (09:00→21:42)
[2018-10-07] MEDS: ACETAMINOPHEN TAB 650MG DOSE (2X325MG) PO (18:20)
[2018-10-07] MEDS ORDERED: ACETAMINOPHEN TAB 650MG DOSE (2X325MG) As Ordered (18:33)
[2018-10-07] MEDS: ESCITALOPRAM OXALATE 10 MG TAB (LEXAPRO) PO (21:37)
[2018-10-07] MEDS: LORazepam 1 MG TAB PO (21:37)
[2018-10-08] MEDS: PERCOCET 5MG/325MG TAB PO ×4 (00:49→18:12)
[2018-10-08] MEDS: LEVOTHYROXINE 137MCG TABLET (0.137MG) PO (06:24)
[2018-10-08 06:27] LABS: HEMOGLOBIN 12.5 g/dl (12.0-15.5); MEAN CORPUSCULAR HGB CONC 29.8 g/dl (32.0-36.5); MEAN CORPUSCULAR VOLUME 94.2 fl (80.0-96.0); PLATELET COUNT, AUTOMATED 123 10^3/uL (150-450); RED BLOOD COUNT 4.46 10^6/uL (4.00-5.40); RED CELL DISTRIBUTION WIDTH 22.7 % (11.5-14.5); WHITE BLOOD COUNT 9.9 10^3/uL (4.0-10.0)
[2018-10-08 06:58] LABS: ANION GAP 12 MEQ/L (8-16); BLOOD UREA NITROGEN 45 MG/DL (7-18); CALCIUM LEVEL 7.5 MG/DL (8.8-10.2); CARBON DIOXIDE LEVEL 23 MEQ/L (21-32); CHLORIDE LEVEL 103 MEQ/L (98-107); CREATININE FOR GFR 4.74 MG/DL (0.55-1.30); GLOMERULAR FILTRATION RATE 9.7 (>45); GLUCOSE, FASTING 63 MG/DL (70-100); POTASSIUM SERUM 4.1 MEQ/L (3.5-5.1); SODIUM LEVEL 138 MEQ/L (136-145)
[2018-10-08] MEDS: SYMBICORT 160/4.5MCG INHALER 6GM INH ×2 (07:19→20:30)
[2018-10-08] MEDS: LOSARTAN 50 MG TAB PO (08:53)
[2018-10-08] MEDS: HEPARIN SOD (PORCINE) 5000 UNITS/ML VIAL SQ ×2 (08:53→20:10)
[2018-10-08] MEDS: CALCIUM ACETATE 667 MG GELCAP PO ×3 (08:53→18:12)
[2018-10-08] MEDS: amLODIPine 10 MG TAB PO (08:53)
[2018-10-08] MEDS: NICOTINE 14 MG/24 HR TRANSDERMAL TD (08:54)
[2018-10-08] MEDS ORDERED: SLF 3 ML SYR IV (09:00)
[2018-10-08] MEDS: SLF 3 ML SYR IV ×2 (14:00→20:11)
[2018-10-08] MEDS: LIDOCAINE 1% SDV 5 ML VIAL SQ (14:00)
[2018-10-08] MEDS: IPRATROPIUM 0.5MG/ALBUTEROL 2.5MG INH SOL UD 3ML (DUONEB)(J7620) NEB (15:29)
[2018-10-08] MEDS: ONDANSETRON 4MG/2ML VIAL (J2405) IV (18:54)
[2018-10-08] MEDS: LORazepam 1 MG TAB PO (20:11)
[2018-10-08] MEDS: ESCITALOPRAM OXALATE 10 MG TAB (LEXAPRO) PO (20:11)
[2018-10-09] MEDS: SLF 3 ML SYR IV ×3 (06:00→20:15)
[2018-10-09] MEDS: LEVOTHYROXINE 137MCG TABLET (0.137MG) PO (06:19)
[2018-10-09] MEDS: SYMBICORT 160/4.5MCG INHALER 6GM INH ×2 (07:24→20:27)
[2018-10-09] MEDS: NICOTINE 14 MG/24 HR TRANSDERMAL TD (08:19)
[2018-10-09] MEDS: HEPARIN SOD (PORCINE) 5000 UNITS/ML VIAL SQ ×2 (08:19→20:15)
[2018-10-09] MEDS: amLODIPine 10 MG TAB PO (08:21)
[2018-10-09] MEDS: PERCOCET 5MG/325MG TAB PO (08:21)
[2018-10-09] MEDS: CALCIUM ACETATE 667 MG GELCAP PO ×3 (08:21→18:01)
[2018-10-09 08:23] LABS: HEMATOCRIT 40.2 % (36.0-47.0); HEMOGLOBIN 11.7 g/dl (12.0-15.5); MEAN CORPUSCULAR HEMOGLOBIN 27.7 pg (27.0-33.0); MEAN CORPUSCULAR HGB CONC 29.1 g/dl (32.0-36.5); PLATELET COUNT, AUTOMATED 112 10^3/uL (150-450); RED BLOOD COUNT 4.23 10^6/uL (4.00-5.40); RED CELL DISTRIBUTION WIDTH 22.3 % (11.5-14.5); WHITE BLOOD COUNT 8.2 10^3/uL (4.0-10.0)
[2018-10-09] MEDS: ACETAMINOPHEN 325 MG TAB PO (08:24)
[2018-10-09 08:52] LABS: ANION GAP 10 MEQ/L (8-16); BLOOD UREA NITROGEN 31 MG/DL (7-18); CALCIUM LEVEL 7.9 MG/DL (8.8-10.2); CARBON DIOXIDE LEVEL 26 MEQ/L (21-32); CHLORIDE LEVEL 101 MEQ/L (98-107); CREATININE FOR GFR 3.64 MG/DL (0.55-1.30); GLOMERULAR FILTRATION RATE 13.2 (>45); GLUCOSE, FASTING 72 MG/DL (70-100); SODIUM LEVEL 137 MEQ/L (136-145)
[2018-10-09 08:59] LABS: LACTIC ACID SEPSIS PROTOCOL 0.5 MMOL/L (0.4-2.0)
[2018-10-09] MEDS: ACETAMINOPHEN TAB 650MG DOSE (2X325MG) PO (16:12)
[2018-10-09] MEDS: cefTRIAXone SOD 1 GM in D5W MINI-BAG PLUS 50 ML IV (16:55)
[2018-10-09] MEDS: IPRATROPIUM 0.5MG/ALBUTEROL 2.5MG INH SOL UD 3ML (DUONEB)(J7620) NEB (17:00)
[2018-10-09] MEDS: ESCITALOPRAM OXALATE 10 MG TAB (LEXAPRO) PO (20:15)
[2018-10-09] MEDS: LORazepam 1 MG TAB PO (20:15)
[2018-10-10] MEDS: SLF 3 ML SYR IV ×3 (06:00→22:00)
[2018-10-10 06:14] LABS: HEMATOCRIT 41.2 % (36.0-47.0); MEAN CORPUSCULAR HEMOGLOBIN 27.3 pg (27.0-33.0); MEAN CORPUSCULAR HGB CONC 29.1 g/dl (32.0-36.5); MEAN CORPUSCULAR VOLUME 93.8 fl (80.0-96.0); PLATELET COUNT, AUTOMATED 112 10^3/uL (150-450); RED BLOOD COUNT 4.39 10^6/uL (4.00-5.40); RED CELL DISTRIBUTION WIDTH 21.7 % (11.5-14.5); WHITE BLOOD COUNT 8.7 10^3/uL (4.0-10.0)
[2018-10-10] MEDS: CALCIUM ACETATE 667 MG GELCAP PO ×3 (06:21→17:57)
[2018-10-10] MEDS: HEPARIN SOD (PORCINE) 5000 UNITS/ML VIAL SQ ×2 (06:21→20:33)
[2018-10-10] MEDS: amLODIPine 10 MG TAB PO (06:21)
[2018-10-10] MEDS: LEVOTHYROXINE 137MCG TABLET (0.137MG) PO (06:21)
[2018-10-10] MEDS: NICOTINE 14 MG/24 HR TRANSDERMAL TD (06:33)
[2018-10-10 06:37] LABS: ANION GAP 9 MEQ/L (8-16); BLOOD UREA NITROGEN 44 MG/DL (7-18); CALCIUM LEVEL 7.3 MG/DL (8.8-10.2); CARBON DIOXIDE LEVEL 25 MEQ/L (21-32); CHLORIDE LEVEL 100 MEQ/L (98-107); CREATININE FOR GFR 4.42 MG/DL (0.55-1.30); GLOMERULAR FILTRATION RATE 10.5 (>45); GLUCOSE, FASTING 67 MG/DL (70-100); POTASSIUM SERUM 4.6 MEQ/L (3.5-5.1); SODIUM LEVEL 134 MEQ/L (136-145)
[2018-10-10] MEDS: SYMBICORT 160/4.5MCG INHALER 6GM INH ×2 (07:13→20:00)
[2018-10-10] MEDS: PERCOCET 5MG/325MG TAB PO ×3 (08:17→17:58)
[2018-10-10] MEDS: LORazepam 1 MG TAB PO ×2 (08:19→20:36)
[2018-10-10] MEDS: LOSARTAN 50 MG TAB PO (11:25)
[2018-10-10] MEDS: cefTRIAXone SOD 1 GM in D5W MINI-BAG PLUS 50 ML IV (17:57)
[2018-10-10] MEDS: ESCITALOPRAM OXALATE 10 MG TAB (LEXAPRO) PO (20:33)
[2018-10-11 05:46] LABS: HEMATOCRIT 38.9 % (36.0-47.0); HEMOGLOBIN 11.4 g/dl (12.0-15.5); MEAN CORPUSCULAR HEMOGLOBIN 27.5 pg (27.0-33.0); MEAN CORPUSCULAR HGB CONC 29.3 g/dl (32.0-36.5); MEAN CORPUSCULAR VOLUME 93.7 fl (80.0-96.0); PLATELET COUNT, AUTOMATED 126 10^3/uL (150-450); RED BLOOD COUNT 4.15 10^6/uL (4.00-5.40); RED CELL DISTRIBUTION WIDTH 21.6 % (11.5-14.5); WHITE BLOOD COUNT 6.9 10^3/uL (4.0-10.0)
[2018-10-11] MEDS: LEVOTHYROXINE 137MCG TABLET (0.137MG) PO (06:00)
[2018-10-11] MEDS: SLF 3 ML SYR IV ×3 (06:02→20:48)
[2018-10-11 06:16] LABS: ANION GAP 8 MEQ/L (8-16); BLOOD UREA NITROGEN 30 MG/DL (7-18); CALCIUM LEVEL 7.7 MG/DL (8.8-10.2); CARBON DIOXIDE LEVEL 28 MEQ/L (21-32); CHLORIDE LEVEL 102 MEQ/L (98-107); CREATININE FOR GFR 3.43 MG/DL (0.55-1.30); GLOMERULAR FILTRATION RATE 14.1 (>45); GLUCOSE, FASTING 74 MG/DL (70-100); POTASSIUM SERUM 4.2 MEQ/L (3.5-5.1); SODIUM LEVEL 138 MEQ/L (136-145)
[2018-10-11] MEDS: SYMBICORT 160/4.5MCG INHALER 6GM INH ×2 (07:31→20:53)
[2018-10-11] MEDS: HEPARIN SOD (PORCINE) 5000 UNITS/ML VIAL SQ ×2 (09:31→20:48)
[2018-10-11] MEDS: CALCIUM ACETATE 667 MG GELCAP PO ×3 (09:39→16:56)
[2018-10-11] MEDS: LOSARTAN 50 MG TAB PO (09:39)
[2018-10-11] MEDS: amLODIPine 10 MG TAB PO (09:39)
[2018-10-11] MEDS: NICOTINE 14 MG/24 HR TRANSDERMAL TD (09:40)
[2018-10-11] MEDS: cefTRIAXone SOD 1 GM in D5W MINI-BAG PLUS 50 ML IV (16:56)
[2018-10-11] MEDS: ACETAMINOPHEN TAB 650MG DOSE (2X325MG) PO (16:56)
[2018-10-11] MEDS: ESCITALOPRAM OXALATE 10 MG TAB (LEXAPRO) PO (20:47)
[2018-10-11] MEDS: LORazepam 1 MG TAB PO (20:47)
[2018-10-12 06:16] LABS: HEMATOCRIT 41.1 % (36.0-47.0); MEAN CORPUSCULAR HEMOGLOBIN 27.5 pg (27.0-33.0); MEAN CORPUSCULAR HGB CONC 29.2 g/dl (32.0-36.5); MEAN CORPUSCULAR VOLUME 94.3 fl (80.0-96.0); RED BLOOD COUNT 4.36 10^6/uL (4.00-5.40); RED CELL DISTRIBUTION WIDTH 21.3 % (11.5-14.5); WHITE BLOOD COUNT 6.3 10^3/uL (4.0-10.0)
[2018-10-12] MEDS: LEVOTHYROXINE 137MCG TABLET (0.137MG) PO (06:24)
[2018-10-12] MEDS: SLF 3 ML SYR IV ×3 (06:25→20:33)
[2018-10-12] MEDS: ACETAMINOPHEN TAB 650MG DOSE (2X325MG) PO ×2 (06:26→15:45)
[2018-10-12 06:45] LABS: ANION GAP 7 MEQ/L (8-16); BLOOD UREA NITROGEN 40 MG/DL (7-18); CALCIUM LEVEL 7.1 MG/DL (8.8-10.2); CARBON DIOXIDE LEVEL 25 MEQ/L (21-32); CHLORIDE LEVEL 102 MEQ/L (98-107); GLOMERULAR FILTRATION RATE 11.5 (>45); GLUCOSE, FASTING 66 MG/DL (70-100); MAGNESIUM LEVEL 1.9 MG/DL (1.8-2.4); POTASSIUM SERUM 4.8 MEQ/L (3.5-5.1); SODIUM LEVEL 134 MEQ/L (136-145)
[2018-10-12] MEDS: SYMBICORT 160/4.5MCG INHALER 6GM INH ×2 (07:21→20:22)
[2018-10-12] MEDS: IPRATROPIUM 0.5MG/ALBUTEROL 2.5MG INH SOL UD 3ML (DUONEB)(J7620) NEB (07:21)
[2018-10-12 07:36] LABS: PLATELET COUNT, AUTOMATED 91 10^3/uL (150-450)
[2018-10-12 07:37] LABS: IMMATURE PLATELET FRACTION % 3.5 % (0.0-9.6)
[2018-10-12 08:50] LABS: ERYTHROCYTE SEDIMENTATION RATE 4 mm/hr (0-30)
[2018-10-12] MEDS: HEPARIN SOD (PORCINE) 5000 UNITS/ML VIAL SQ ×2 (09:00→20:30)
[2018-10-12] MEDS: amLODIPine 10 MG TAB PO (10:06)
[2018-10-12] MEDS: CALCIUM ACETATE 667 MG GELCAP PO ×3 (10:06→17:04)
[2018-10-12] MEDS: LOSARTAN 50 MG TAB PO (10:06)
[2018-10-12] MEDS: NICOTINE 14 MG/24 HR TRANSDERMAL TD (10:07)
[2018-10-12] MEDS: cefTRIAXone SOD 1 GM in D5W MINI-BAG PLUS 50 ML IV (17:04)
[2018-10-12] MEDS: LORazepam 1 MG TAB PO (20:31)
[2018-10-12] MEDS: ESCITALOPRAM OXALATE 10 MG TAB (LEXAPRO) PO (20:32)
[2018-10-13] MEDS: LEVOTHYROXINE 137MCG TABLET (0.137MG) PO (05:04)
[2018-10-13] MEDS: ACETAMINOPHEN TAB 650MG DOSE (2X325MG) PO (05:04)
[2018-10-13] MEDS: SLF 3 ML SYR IV ×3 (05:07→21:29)
[2018-10-13 06:03] LABS: HEMATOCRIT 41.1 % (36.0-47.0); HEMOGLOBIN 12.1 g/dl (12.0-15.5); MEAN CORPUSCULAR HGB CONC 29.4 g/dl (32.0-36.5); MEAN CORPUSCULAR VOLUME 91.7 fl (80.0-96.0); PLATELET COUNT, AUTOMATED 145 10^3/uL (150-450); RED BLOOD COUNT 4.48 10^6/uL (4.00-5.40); RED CELL DISTRIBUTION WIDTH 21.2 % (11.5-14.5); WHITE BLOOD COUNT 5.9 10^3/uL (4.0-10.0)
[2018-10-13] MEDS: amLODIPine 10 MG TAB PO (06:11)
[2018-10-13] MEDS: HEPARIN SOD (PORCINE) 5000 UNITS/ML VIAL SQ ×2 (06:11→20:33)
[2018-10-13] MEDS: LOSARTAN 50 MG TAB PO (06:11)
[2018-10-13] MEDS: CALCIUM ACETATE 667 MG GELCAP PO ×3 (06:11→18:56)
[2018-10-13] MEDS: NICOTINE 14 MG/24 HR TRANSDERMAL TD (06:11)
[2018-10-13 06:29] LABS: ANION GAP 7 MEQ/L (8-16); BLOOD UREA NITROGEN 52 MG/DL (7-18); CALCIUM LEVEL 7.4 MG/DL (8.8-10.2); CARBON DIOXIDE LEVEL 26 MEQ/L (21-32); CHLORIDE LEVEL 99 MEQ/L (98-107); CREATININE FOR GFR 4.83 MG/DL (0.55-1.30); GLOMERULAR FILTRATION RATE 9.5 (>45); GLUCOSE, FASTING 70 MG/DL (70-100); POTASSIUM SERUM 4.8 MEQ/L (3.5-5.1); SODIUM LEVEL 132 MEQ/L (136-145)
[2018-10-13] MEDS: SYMBICORT 160/4.5MCG INHALER 6GM INH ×2 (07:28→20:57)
[2018-10-13] MEDS: IPRATROPIUM 0.5MG/ALBUTEROL 2.5MG INH SOL UD 3ML (DUONEB)(J7620) NEB ×2 (07:28→18:25)
[2018-10-13] MEDS: LIDOCAINE 1% SDV 5 ML VIAL SQ (11:00)
[2018-10-13] MEDS: LORazepam 1 MG TAB PO (20:33)
[2018-10-13] MEDS: ESCITALOPRAM OXALATE 10 MG TAB (LEXAPRO) PO (20:33)
[2018-10-14] MEDS: LEVOTHYROXINE 137MCG TABLET (0.137MG) PO (05:17)
[2018-10-14] MEDS: SLF 3 ML SYR IV (05:17)
[2018-10-14 05:59] LABS: HEMATOCRIT 38.9 % (36.0-47.0); HEMOGLOBIN 11.7 g/dl (12.0-15.5); MEAN CORPUSCULAR HEMOGLOBIN 27.1 pg (27.0-33.0); MEAN CORPUSCULAR HGB CONC 30.1 g/dl (32.0-36.5); MEAN CORPUSCULAR VOLUME 90.3 fl (80.0-96.0); PLATELET COUNT, AUTOMATED 146 10^3/uL (150-450); RED BLOOD COUNT 4.31 10^6/uL (4.00-5.40); RED CELL DISTRIBUTION WIDTH 21.1 % (11.5-14.5); WHITE BLOOD COUNT 5.4 10^3/uL (4.0-10.0)
[2018-10-14 06:30] LABS: ANION GAP 7 MEQ/L (8-16); BLOOD UREA NITROGEN 31 MG/DL (7-18); CALCIUM LEVEL 7.6 MG/DL (8.8-10.2); CARBON DIOXIDE LEVEL 29 MEQ/L (21-32); CHLORIDE LEVEL 101 MEQ/L (98-107); CREATININE FOR GFR 3.18 MG/DL (0.55-1.30); GLOMERULAR FILTRATION RATE 15.4 (>45); GLUCOSE, FASTING 56 MG/DL (70-100); POTASSIUM SERUM 4.2 MEQ/L (3.5-5.1); SODIUM LEVEL 137 MEQ/L (136-145)
[2018-10-14] MEDS: SYMBICORT 160/4.5MCG INHALER 6GM INH (07:44)
[2018-10-14] MEDS: NICOTINE 14 MG/24 HR TRANSDERMAL TD (08:07)
[2018-10-14] MEDS: amLODIPine 10 MG TAB PO (08:07)
[2018-10-14] MEDS: LOSARTAN 50 MG TAB PO (08:08)
[2018-10-14] MEDS: CALCIUM ACETATE 667 MG GELCAP PO (08:08)
== END 2018-10-14 14:08 | disposition home health service (06) | DRG 640 ==
LOC: M ED 12:06 → M ED INP 15:29 → M PCU 21:13
PROC: 5A1D70Z Performance of Urinary Filtration, Intermittent, Less than 6 Hours Per Day (ICD-10-PCS; principal; 2018-10-06)
DX: E87.79 Other fluid overload (principal); N18.6 End stage renal disease; I50.33 Acute on chronic diastolic (congestive) heart failure; E43 Unspecified severe protein-calorie malnutrition; J96.11 Chronic respiratory failure with hypoxia; Z68.1 Body mass index [BMI] 19.9 or less, adult; Q44.6 Cystic disease of liver; Q61.3 Polycystic kidney, unspecified; J44.1 Chronic obstructive pulmonary disease with (acute) exacerbation; I13.2 Hypertensive heart and chronic kidney disease with heart failure and with stage 5 chronic kidney disease, or end stage renal disease; E87.1 Hypo-osmolality and hyponatremia; Z91.15 Patient's noncompliance with renal dialysis; Z91.19 Patient's noncompliance with other medical treatment and regimen; E03.9 Hypothyroidism, unspecified; F17.210 Nicotine dependence, cigarettes, uncomplicated; F41.9 Anxiety disorder, unspecified; F32.9 Major depressive disorder, single episode, unspecified; Z79.899 Other long term (current) drug therapy; Z79.82 Long term (current) use of aspirin; Z99.81 Dependence on supplemental oxygen; I27.20 Pulmonary hypertension, unspecified; Z88.8 Allergy status to other drugs, medicaments and biological substances; I15.0 Renovascular hypertension; Z66 Do not resuscitate

== ENCOUNTER 2018-12-18 12:44 | Inpatient (IN) | payer MEDICARE, MEDICAID ==
[~2018-12-18] VITALS: Ht 154.9 cm; Wt 32.1 kg
[~2018-12-18 12:44] MED LIST changes: +ACTI1TAB PO; +ALBU17IN INH; +ALBU83IN INH; +ALDA25TA2 PO; +AMLO10TA5 PO; +AMLO5TAB6 PO; +ASPI1TAB PO; +ASPI81CH PO; +ASPI81TAEC PO; +ATEN25TA PO; +ATEN50TA2 PO; +ATIV1TAB10 PO; +ATRO0.063 INH; +AZIT-12 PO; +AZIT500T2 PO; +BACITAB PO; +CALC1CAP PO; +CALC1CAP31 PO; +CEFT1INJ65 IV; +CEPA5.4L2 MT; +CIPR-250 PO; +COZA100T2 PO; +DICL1GEL3 TD; +DICL1GEL3 TOP; +DOXY100C PO; +DRIS50003 PO; +ERYT5OPO OD; +ESTR1TAB9 PO; +FLAG500T PO; +FLUC100T PO; +FURO40TA2 PO; +HYDR25TA PO; +Home Oxygen; +INCR1INH INH; +KEFL250C11 PO; +KEFL500C17 PO; +KETO5OPD OD; +LEVA1TAB2 PO; +LEVA250T13 PO; +LEVA750T7 PO; +LEVO125T41 PO; +LEVO88TA3 PO; +LEXA1TAB PO; +LEXA1TAB2 PO; +LIDO4SO TOP; +LIDO5TD TD; +LORA1TAB12 PO; +LOSA100T50 PO; +LOSA25TA14 PO; +MEDR4PAK PO; +MEGE20TA3 PO; -MIDAZOLAM INJ 2 MG/2 ML VIAL (J2250) As Ordered; +MINO2.5T PO; +MIRA33504 PO; +NICO21PAT TD; +NICO7DIS4 TD; +NICO7PA TD; +NORV5TAB PO; +OCEA0.654; +OXYC1TAB23 PO; +PERC5TAB12 PO; -PHENYLEPHRINE HCL 10 % OPHTH. SOL 5ML OD; +PRED10PA PO; +PRED10TA PO; +PRED10TA2 PO; +PRED20TA PO; +PRED25TA PO; +PRED5TA PO; +PROAAER10 INH; +PROT1TAB2 PO; +RENATAB5 PO; +RENATAB6 PO; +SODI325T9 PO; +SYMB16INH INH; +SYMB80INH INH; +SYNT137T7 PO; +TIOT18INH INH; +TOBR0.3S37 OD; +TRAM50TA2 PO; +TYLE325T5 PO; +[UNRECOGNIZED DRUG - OTHER]; -fentaNYL 100 MCG/2 ML INJECTION (J3010) As Ordered; +prednisone PO
[2018-12-18 13:42] LABS: BASO # 0.1 10^3/uL (0.0-0.2); BASO % 0.8 % (0.0-1.0); EOS # 0.2 10^3/uL (0.0-0.50); EOS % 1.9 % (0.0-3.0); HEMATOCRIT 36.8 % (36.0-47.0); LYMPH # 0.7 10^3/uL (1.5-4.5); LYMPH % 8.9 % (24.0-44.0); MEAN CORPUSCULAR HEMOGLOBIN 26.4 pg (27.0-33.0); MEAN CORPUSCULAR HGB CONC 29.9 g/dl (32.0-36.5); MEAN CORPUSCULAR VOLUME 88.2 fl (80.0-96.0); MONO # 0.5 10^3/uL (0.0-0.8); MONO % 5.9 % (0.0-5.0); NEUTROPHILS # 6.4 10^3/uL (1.8-7.7); NEUTROPHILS % 81.9 % (36.0-66.0); PLATELET COUNT, AUTOMATED 203 10^3/uL (150-450); RED BLOOD COUNT 4.17 10^6/uL (4.00-5.40); WHITE BLOOD COUNT 7.9 10^3/uL (4.0-10.0)
--- NOTE | 2018-12-18 14:38 | REP ---
Chest x-ray: Three views. History: Short of breath. Comparison study: October 10, 2018. Findings: EKG monitoring electrodes overlie the chest. Heart size is borderline unchanged. There is an interstitial infiltrate in the right base today consistent with pneumonia. Remaining lung louis are clear. Impression: Interstitial infiltrate right base consistent with pneumonia. Electronically Signed by Manjit Cruz MD 12/18/2018 02:29 P
[2018-12-18] MEDS ORDERED: cefTRIAXone SOD 1 GM in D5W MINI-BAG PLUS 50 ML IV ONE (14:45)
[2018-12-18 15:03] LABS: ABG BASE EXCESS -6.8 (-2.0-2.0); ABG HCO3 18.4 MEQ/L (22.0-26.0); ABG O2 SATURATION 96.5 % (95.0-99.0); ABG PARTIAL PRESSURE CO2 35.7 mmHg (35.0-45.0); ABG PARTIAL PRESSURE O2 91.2 mmHg (75.0-100.0); ABG STANDARD HCO3 18.9 MEQ/L (22.0-26.0); ABG TOTAL CO2 19.5 MEQ/L (23.0-31.0); ABG pH (ARTERIAL) 7.329 UNITS (7.350-7.450)
[2018-12-18] MEDS ORDERED: VELP5CHW PO (15:50)
[2018-12-18 16:56] LABS: ALBUMIN 2.8 GM/DL (3.2-5.2); BILIRUBIN,DIRECT 0.3 MG/DL (0.0-0.2); BILIRUBIN,TOTAL 0.6 MG/DL (0.2-1.0); CALCIUM LEVEL 7.9 MG/DL (8.8-10.2); CREATININE FOR GFR 6.55 MG/DL (0.55-1.30); GLOMERULAR FILTRATION RATE 6.7 (>39); MB/CK RELATIVE INDEX 13.75 (< OR =4); POTASSIUM SERUM 6.5 MEQ/L (3.5-5.1); THYROID STIMULATING HORMONE 0.586 uIU/ML (0.358-3.740); TOTAL PROTEIN 5.6 GM/DL (6.4-8.2); TROPONIN I 0.06 NG/ML (< 0.10)
[2018-12-18] MEDS ORDERED: DEXTROSE 50% 50 ML SYRINGE IV STA (16:57)
[2018-12-18] MEDS ORDERED: PATIROMER SORBITEX CALCIUM 8.4 GM POWDER PACKET (VELTASSA) PO ONE (17:00)
[2018-12-18] MEDS ORDERED: IPRATROPIUM 0.02% SOLN 0.5MG/2.5 ML NEB INH PRN (17:45)
[2018-12-18] MEDS ORDERED: IPRATROPIUM 0.5MG/ALBUTEROL 2.5MG INH SOL UD 3ML (DUONEB)(J7620) NEB PRN (18:00)
--- NOTE | 2018-12-18 18:33 | HPE ---
DATE OF ADMISSION: 12/18/2018 A 68-year-old female with past medical history of oxygen dependent chronic obstructive pulmonary disease (COPD) requiring two liters at night, history of chronic active tobacco abuse, history of chronic diastolic heart failure, pulmonary hypertension, end-stage renal disease on hemodialysis Tuesday, Tuesday and Tuesday, last dialysis last Tuesday, secondary to polycystic kidney disease, who presents to the emergency room with increasing shortness of breath and cough with productive thick white sputum for the past week. She has been taking all of her medications, nebulizer treatments and her oxygen but to no avail. Her cough worsened as did her shortness of breath. She did have subjective feeling of aches and chills but no fever. In the emergency room (ER), she was not hypoxic and at first it was thought that she might be in failure due to the fact that she missed a whole week of dialysis. However, upon getting a chest x-ray, the patient was noted to have a right base consolidation and the diagnosis of community-acquired pneumonia was established. The patient was started on IV Zosyn and nephrology has been called in and the patient will be receiving dialysis later on this evening. She will be admitted for further management. PAST MEDICAL HISTORY: 1. Chronic oxygen dependent chronic obstructive pulmonary disease (COPD) requiring two liters of nasal cannula. 2. History of chronic active tobacco abuse. 3. History of chronic diastolic heart failure. 4. Pulmonary hypertension. 5. End-stage renal disease on hemodialysis Tuesday, Tuesday, Tuesday, secondary to polycystic kidney disease. 6. History of hypothyroidism. PAST SURGICAL HISTORY: 1. Arteriovenous (AV) fistula in the left upper extremity. 2. History of right hip fracture, status post right hip replacement. ALLERGIES: She has drug allergies to LISINOPRIL. FAMILY HISTORY: Positive for polycystic kidney disease on the father's side. SOCIAL HISTORY: The patient still smokes approximately five cigarettes daily. Denies alcohol or illicit drugs. MEDICATIONS: She takes at home are as follows: - albuterol via nebulizer as needed - amlodipine 10 mg orally daily - aspirin 81 mg orally daily - Symbicort two puffs inhaled twice a day - calcium acetate 667 mg by mouth daily - diclofenac gel one dose topically three times a day as needed - escitalopram 200 mg orally at bedtime - Incruse Ellipta one puff inhaled daily - ipratropium bromide two puffs inhaled four times a day as needed - Synthroid 137 mcg orally daily - lorazepam 1 mg orally three times a day as needed - losartan 100 mg orally daily - polynuclear iron 500 mg orally - Arielle-Roby one tablet orally daily REVIEW OF SYSTEMS: Negative for all 10 major systems except for what is mentioned in the history of present illness (HPI). VITAL SIGNS: Blood pressure 183/109, pulse 79 and regular, respiratory rate is 17, temperature is 97.8, oxygen saturation 96% on room air. HEAD: Normocephalic, atraumatic. NECK: Supple. No jugular venous distention (JVD). LUNGS: Rhonchi in the right base. S1, S2 audible. No murmurs appreciated. ABDOMEN: Soft. Positive bowel sounds. No pedal edema. SKIN: Intact. NEUROLOGIC: The patient is awake, alert, and oriented times three. LABORATORY DATA: WBC 7.9, hemoglobin is 11, hematocrit 36.8, platelets are 203,000. Sodium is 140, potassium 6.5 nonhemolyzed, chloride 105, CO2 is 21, anion gap 14, BUN is 86, creatinine 6.55, glucose is 38, lactic acid is 0.8, calcium is 7.9 troponin is 0.06, TSH is 0.586. Chest x-ray shows an interstitial infiltrate in the right base. IMPRESSION: 1. Community-acquired pneumonia versus aspiration pneumonia. 2. End-stage renal disease. 3. Hyperkalemia. PLAN: The patient will be admitted to the progressive care unit (PCU). The patient, as I mentioned earlier, will be receiving dialysis today by our nephrology staff. As far as the pneumonia is concerned, we will start the patient on IV Zosyn at renal dose 2.25 IV every eight hours. If she starts making sputum, we will try to get a sputum culture as well. We will continue her preadmission medications and continue her care in the PCU.
[2018-12-18 20:00] VITALS: BP 136/86
[2018-12-18] MEDS: PIPERACILLIN/TAZOBACTAM SOD 2.25 GM in D5W MINI-BAG PLUS 50 ML IV SCH (20:05)
[2018-12-18] MEDS: ESCITALOPRAM OXALATE 10 MG TAB (LEXAPRO) PO SCH (21:00)
[2018-12-18 22:15] LABS: CALCIUM LEVEL 7.8 MG/DL (8.8-10.2); CREATININE FOR GFR 4.15 MG/DL (0.55-1.30); GLOMERULAR FILTRATION RATE 11.3 (>39); POTASSIUM SERUM 4.4 MEQ/L (3.5-5.1)
[2018-12-18] MEDS: LORazepam 1 MG TAB PO PRN (22:18)
[2018-12-18] MEDS: SYMBICORT 160/4.5MCG INHALER 6GM INH SCH (22:24)
[2018-12-19] VITALS (7 sets, daily range): BP systolic 132–156; BP diastolic 70–93
[2018-12-19] MEDS: PIPERACILLIN/TAZOBACTAM SOD 2.25 GM in D5W MINI-BAG PLUS 50 ML IV SCH ×3 (02:00→17:11)
[2018-12-19 04:55] LABS: BASO % 0.6 % (0.0-1.0); EOS # 0.3 10^3/uL (0.0-0.50); EOS % 4.7 % (0.0-3.0); HEMATOCRIT 35.6 % (36.0-47.0); HEMOGLOBIN 10.4 g/dl (12.0-15.5); LYMPH # 0.8 10^3/uL (1.5-4.5); LYMPH % 11.9 % (24.0-44.0); MEAN CORPUSCULAR HEMOGLOBIN 25.6 pg (27.0-33.0); MEAN CORPUSCULAR HGB CONC 29.2 g/dl (32.0-36.5); MEAN CORPUSCULAR VOLUME 87.5 fl (80.0-96.0); MONO # 0.5 10^3/uL (0.0-0.8); NEUTROPHILS # 4.9 10^3/uL (1.8-7.7); NEUTROPHILS % 74.2 % (36.0-66.0); PLATELET COUNT, AUTOMATED 177 10^3/uL (150-450); RED BLOOD COUNT 4.07 10^6/uL (4.00-5.40); WHITE BLOOD COUNT 6.5 10^3/uL (4.0-10.0)
[2018-12-19 05:17] LABS: CALCIUM LEVEL 7.9 MG/DL (8.8-10.2); CREATININE FOR GFR 4.4 MG/DL (0.55-1.30); GLOMERULAR FILTRATION RATE 10.6 (>39); POTASSIUM SERUM 4.7 MEQ/L (3.5-5.1)
[2018-12-19] MEDS: LEVOTHYROXINE 137MCG TABLET (0.137MG) PO SCH (06:00)
--- NOTE | 2018-12-19 06:45 | CR ---
DATE OF CONSULTATION: 12/18/2018 REASON FOR CONSULTATION: Hyperkalemia in this lady with end-stage renal disease and shortness of breath. HISTORY OF PRESENT ILLNESS: Mrs. Blackmon is a 68-year-old female with multiple chronic medical problems including a history of end-stage renal disease secondary to polycystic kidney disease, advanced chronic pulmonary obstructive disease (COPD), hypertension and congestive heart failure. She presented to the emergency room today with shortness of breath and was found to have severe hyperkalemia with potassium level 6.5. She was also noticed to have hypoglycemia and pulmonary infiltrates due to which she is being admitted for antibiotic therapy. She has advanced COPD and was short of breath on any exertion. The patient did miss her dialysis on Tuesday. Her dialysis was due today and she was in the emergency room, she had missed her dialysis even for today. Nephrology consultation was requested for urgent hemodialysis and the patient is seen and dialysis is being arranged. PAST MEDICAL HISTORY: Significant for: 1. Advanced COPD on home oxygen. 2. End-stage renal disease secondary to polycystic kidney disease. 3. Chronic diastolic congestive heart failure. 4. Pulmonary hypertension. 5. History of hypothyroidism. 6. Anemia. 7. History of chronic failure to thrive. PAST SURGICAL HISTORY: Significant for: 1. Arteriovenous (AV) fistula location in left arm. 2. History right hip fracture status post right hip replacement. ALLERGIES: The patient has allergy to LISINOPRIL. MEDICATIONS: Her home medications include: - albuterol nebulizer as needed - amlodipine 10 mg daily - aspirin 81 mg daily - Symbicort 2 puffs three times a day - calcium acetate 1 capsule daily - escitalopram at bedtime - Synthroid 137 mcg daily - lorazepam 1 mg three times a day as needed for anxiety - losartan 100 mg daily - Arielle-Roby one tablet daily FAMILY HISTORY: She has family history for polycystic kidney disease and end-stage renal disease. PERSONAL AND SOCIAL HISTORY: The patient is a chronic smoker and she still actively smokes though only a few cigarettes a day. She denies any alcohol or drug use. REVIEW OF SYSTEMS: The patient is generally weak and short of breath. She denies any high-grade fever or chills. She has history of noncompliance with dialysis treatments. On review of Head and Neck: She denies any nosebleeds, headache, sinus or throat problems. Cardiovascular system: Significant for dyspnea but denies any chest pain. Respiratory system: Significant for shortness of breath without any hemoptysis or pleuritic type of chest pain. Gastrointestinal (GI) system: Negative for vomiting or diarrhea. Genitourinary () system: Negative for dysuria or hematuria. Musculoskeletal system: Significant for generalized weakness and muscle wasting. Neurological system: Negative for seizures or stroke. Hematological system: Significant for anemia of chronic kidney disease. Endocrine system: Significant for secondary hyperparathyroidism and hypothyroidism. Skin: Negative for rash or ulcers. PHYSICAL EXAMINATION: GENERAL: Chronically ill looking and very thin lady laying in the bed. VITAL SIGNS: Temperature is 97.8 degrees Fahrenheit, heart at 88 per minute and respiratory rate 20 per minute. Blood pressure 147/106 mmHg and oxygen saturation 95% of 2 liters oxygen. HEAD: Head is atraumatic. There is no oral thrush or ulcers. NECK: Supple and thyroid is mildly enlarged. There is no jugular venous distention (JVD). HEART: Heart sounds are regular and without a pericardial friction rub. LUNGS: Lungs with diminished breath sounds bilaterally. ABDOMEN: Abdomen is distended with large polycystic kidneys and polycystic liver. Bowel sounds are present. EXTREMITIES: No cyanosis or clubbing. Left forearm AV fistula is patent. NEUROLOGY: Neurologically she is awake, alert and at her baseline mentation. LABORATORY DATA: Sodium 140, potassium 6.5, CO2 of 21, BUN 86 and creatinine 6.55. Glucose was 38 and calcium 7.9. Troponin 0.06 and a pro BNP level 45,047. TSH level is 0.58. Blood gas showed a pH of 7.32, pCO2 35.7, pO2 91 and bicarb 19. WBC count 7.9, hemoglobin 11 and hematocrit 36.8. PROBLEMS: 1. Severe hyperkalemia. This is related to noncompliance with dietary restrictions and missed hemodialysis treatment. We are going to urgently dialyze her with low potassium bath and this will correct her hyperkalemia. Electrolytes should be repeated again tomorrow morning. 2. End-stage renal disease. The patient is regularly dialyzed on Tuesday, Tuesday and Tuesday schedule. She did miss her dialysis treatment on Tuesday and will be dialyzed today. We will reevaluate her tomorrow for further dialysis as today her dialysis will be performed for only two hours in order to correct her hyperkalemia. 3. Hypertension. Blood pressure is somewhat high today and probably she has also missed her antihypertensive meds. Dialysis and fluid removal is likely to help with her blood pressure control also. 4. Congestive heart failure. She has history of diastolic congestive heart failure and missed her dialysis treatment on Tuesday due to which she is likely somewhat volume overloaded. We will try to remove 1-1.5 liters of fluid today with dialysis which will help to correct her hypoxemia and volume status. 5. Chronic pulmonary obstructive disease (COPD). This is a chronic issue and she is an active smoker. She should be treated with nebulizers and steroids. 6. Pneumonia. The patient has been started on broad-spectrum antibiotics and nebulizers. Thank you for involving me in the care of Mrs. Blackmon. I will follow her along with you.
[2018-12-19] MEDS: SYMBICORT 160/4.5MCG INHALER 6GM INH SCH ×2 (07:43→20:34)
[2018-12-19] MEDS: LOSARTAN 50 MG TAB PO SCH (08:22)
[2018-12-19] MEDS: CALCIUM ACETATE 667 MG GELCAP PO SCH ×3 (08:22→17:11)
[2018-12-19] MEDS: ASPIRIN 81 MG ENTERIC TAB PO SCH (08:22)
[2018-12-19] MEDS: amLODIPine 10 MG TAB PO SCH (08:23)
[2018-12-19 09:11] LABS: C REACTIVE PROTEIN QUANTITATIV 7.06 MG/DL (0.00-0.30); MB/CK RELATIVE INDEX 17.31 (< OR =4); TROPONIN I 0.09 NG/ML (< 0.10)
[2018-12-19] MEDS: HEPARIN SOD (PORCINE) 5000 UNITS/ML VIAL SQ SCH ×2 (09:28→20:41)
--- NOTE | 2018-12-19 12:49 | IPN ---
DATE OF VISIT: 12/19/2018 Mrs. Blackmon is seen this morning on her bedside. She was admitted yesterday with shortness of breath and found to have pulmonary infiltrate. She also had hyperkalemia with potassium level 6.5 requiring urgent dialysis. She did tolerate her dialysis treatment well. It is important to note that prior to this she had missed her dialysis on Tuesday. In any event, this morning she is feeling much better and had a good breakfast. She denies any nausea, vomiting or abdominal pain. On physical exam, temperature 98.9 degrees Fahrenheit, heart rate 90 per minute and respiratory rate 20 per minute. Blood pressure 148/87 mmHg and oxygen saturation 93% on 2 liters oxygen. Head is atraumatic. She is emaciated and has significant chronic weight loss. Neck is supple and without jugular venous distention (JVD) or thyroid enlargement. Heart sounds are irregular in rhythm and lungs with diminished breath sounds. Abdomen is soft with large polycystic kidneys and polycystic liver palpable. Extremities have no cyanosis or clubbing. Neurologically she is awake, alert and oriented times three. Today's labs show WBC count 6.5, hemoglobin 10.4 and hematocrit 35.6. Platelets 177. Sodium 140, potassium 4.7, CO2 25, BUN 49 and creatinine 4.4. Glucose 76 and calcium 7.9. PROBLEMS: 1. Hyperkalemia corrected with dialysis. We will re-dialyze her tomorrow morning. 2. End-stage renal disease. Patient was dialyzed for 2 hours last evening. This is adequate for now and she will be dialyzed tomorrow again for her regular treatment. 3. Congestive heart failure. Her volume status seems reasonably compensated now and hypoxemia is chronic and related to end-stage lung disease. 4. Hypertension. Blood pressure is well-controlled and current medications are appropriate. 5. Anemia. Her anemia is stable and no intervention is indicated at this point.
[2018-12-19] MEDS: ESCITALOPRAM OXALATE 10 MG TAB (LEXAPRO) PO SCH (20:20)
--- NOTE | 2018-12-19 20:21 | IPN ---
DATE: 12/19/2018 Patient seen and examined. Reported much improved respirations. Denies any chest pain, pressure, or discomfort. Continues to report cough. VITAL SIGNS: Temperature 99.4, pulse 81, respirations 20, blood pressure 136/84, pulse oximetry 96% on 2 liters nasal cannula. LABORATORY DATA: WBC 6.5, hemoglobin and hematocrit 10.4 over 35.6, platelets 177. Chemistry: Sodium 140, potassium 4.7, chloride 105, bicarbonate 25, BUN 49, creatinine 4.4, troponin negative times two. C-reactive protein 7.06. PHYSICAL EXAMINATION: GENERAL: Patient alert, comfortable, frail, in no acute distress. HEENT: Normocephalic, atraumatic. PULMONARY: Right-sided rhonchi. CARDIAC: Regular, S1, S2. ABDOMEN: Soft, nontender. Positive bowel sounds. EXTREMITIES: No clubbing, cyanosis, or edema. ASSESSMENT AND PLAN: This is a 68-year-old female patient with underlying medical history of chronic obstructive pulmonary disease (COPD), chronic hypoxic respiratory failure - on two liters of oxygen via nasal cannula, history of smoking, chronic diastolic congestive heart failure, pulmonary artery hypertension, end-stage renal disease, dialysis Tuesday, Tuesday, Tuesday secondary to polycystic kidney disease, hypothyroidism, presented with shortness of breath, coughing, productive of thick mucus and has missed dialysis for a week with hyperkalemia. PROBLEMS: 1. Hyperkalemia secondary to missing dialysis with underlying end-stage renal disease. Patient emergently dialyzed. Currently with normalizing electrolytes. Nephrology consulted. Continue current medication. Further dialysis as per nephrology. 2. Community-acquired bacterial pneumonia. Followup cultures - sputum culture, blood culture. Followup C-reactive protein. Patient currently on Zosyn. Will consider de-escalating antibiotics once the patient is improved. 3. Chronic obstructive pulmonary disease with chronic hypoxia. Currently not having any wheeze. Continue nebulizer treatment and Symbicort. Antibiotics as mentioned above. Oxygen supplementation. 4. Hypertension. Continue current medication. 5. Depression. Continue her current medication. 6. Hypothyroidism. Continue Synthroid. 7. Secondary hyperparathyroidism. Continue current medication. Further adjustment as per nephrology. 8. Pulmonary artery hypertension. Oxygen supplementation. 9. Chronic diastolic congestive heart failure. Dialysis and fluid removal as per nephrology. DISPOSITION: Pending clinical improvement. Follow cultures. Followup C-reactive protein. Physical therapy has been ordered.
--- NOTE | 2018-12-19 21:06 | ECGEPIP ---
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
[2018-12-20] VITALS: BP 158/85
[2018-12-20] MEDS: PIPERACILLIN/TAZOBACTAM SOD 2.25 GM in D5W MINI-BAG PLUS 50 ML IV SCH ×3 (01:35→17:35)
[2018-12-20 04:00] VITALS: BP 163/84
[2018-12-20 04:51] LABS: HEMATOCRIT 34.9 % (36.0-47.0); HEMOGLOBIN 10.2 g/dl (12.0-15.5); MEAN CORPUSCULAR HEMOGLOBIN 25.8 pg (27.0-33.0); MEAN CORPUSCULAR HGB CONC 29.2 g/dl (32.0-36.5); MEAN CORPUSCULAR VOLUME 88.1 fl (80.0-96.0); PLATELET COUNT, AUTOMATED 169 10^3/uL (150-450); RED BLOOD COUNT 3.96 10^6/uL (4.00-5.40); WHITE BLOOD COUNT 5.3 10^3/uL (4.0-10.0)
[2018-12-20 05:15] LABS: ALBUMIN 2.5 GM/DL (3.2-5.2); C REACTIVE PROTEIN QUANTITATIV 5.32 MG/DL (0.00-0.30); CALCIUM LEVEL 7.4 MG/DL (8.8-10.2); CREATININE FOR GFR 5.46 MG/DL (0.55-1.30); GLOMERULAR FILTRATION RATE 8.2 (>39); MAGNESIUM LEVEL 2.1 MG/DL (1.8-2.4); PHOSPHORUS LEVEL 6.6 MG/DL (2.5-4.9); POTASSIUM SERUM 5.4 MEQ/L (3.5-5.1)
[2018-12-20] MEDS: LEVOTHYROXINE 137MCG TABLET (0.137MG) PO SCH (05:35)
[2018-12-20] MEDS: SYMBICORT 160/4.5MCG INHALER 6GM INH SCH ×2 (07:40→19:26)
[2018-12-20 08:00] VITALS: BP 160/89
[2018-12-20] MEDS: CALCIUM ACETATE 667 MG GELCAP PO SCH ×3 (08:08→17:35)
[2018-12-20] MEDS: amLODIPine 10 MG TAB PO SCH (08:09)
[2018-12-20] MEDS: LOSARTAN 50 MG TAB PO SCH (08:09)
[2018-12-20] MEDS: HEPARIN SOD (PORCINE) 5000 UNITS/ML VIAL SQ SCH ×2 (08:09→20:46)
[2018-12-20] MEDS ORDERED: ONDANSETRON 4MG/2ML VIAL (J2405) IV ONE (08:30)
[2018-12-20] MEDS ORDERED: GLUCOSE 4 GM CHEW TABLET PO PRN (09:00)
[2018-12-20] MEDS ORDERED: GLUCAGON FOR INJ 1 MG VIAL (J1610) SC PRN (09:00)
[2018-12-20] MEDS ORDERED: DEXTROSE 50% 50 ML SYRINGE IV PRN (09:00)
[2018-12-20] MEDS: CREON-12 CAPSULE PO SCH ×3 (09:36→17:35)
[2018-12-20] MEDS ORDERED: PATIROMER SORBITEX CALCIUM 8.4 GM POWDER PACKET (VELTASSA) PO ONE (11:00)
--- NOTE | 2018-12-20 11:06 | IPN ---
DATE OF VISIT: 12/20/2018 Mrs. Blackmon is seen this morning during hemodialysis. She was last dialyzed on Tuesday due to hyperkalemia and shortness of breath. She was doing fine, however, this morning her potassium is up to 5.4 again. Her shortness of breath persists. She denies any nausea or vomiting. Dialysis was attempted this morning, however, her AV fistula infiltrated and she could not get dialysis, which is now being postponed to tomorrow. On physical examination, temperature 98.7 degrees Fahrenheit, heart rate 70 per minute and respiratory rate 18 per minute. Blood pressure 160/89 mmHg and oxygen saturation 96% on 2 liters of oxygen. Head is atraumatic. There is no oral thrush or ulcers. Oral mucosa is somewhat dry. Neck is supple. Jugular venous distention (JVD) is not elevated. Heart sounds are regular. Lungs with diminished breath sounds bilaterally. Abdomen is soft with large polycystic kidneys and polycystic liver. Bowel sounds are normal. Extremities have no cyanosis or clubbing. Today's labs show WBC count 5.3, hemoglobin 10.2 and hematocrit 34.9. Platelets 169. Sodium 140, potassium 5.4, CO2 25, BUN 54, and creatinine 5.46. Calcium 7.4. Phosphorus 6.6. C-reactive protein is down to 5.32 and albumin 2.5. PROBLEMS: 1. End stage renal disease. The patient could not be dialyzed today due to unsuccessful cannulation of her AV fistula. Dialysis is being postponed to tomorrow. 2. Hyperkalemia. She does have mild hyperkalemia which will be treated with one dose of Veltassa 8.4 grams today and will plan to dialyze her tomorrow. 3. Congestive heart failure. Volume status is reasonably well compensated. I do not see any emergent need for dialysis today as far as her congestive heart failure goes. Will try to remove about 1 liter of fluid with dialysis tomorrow. 4. Chronic obstructive pulmonary disease (COPD) and pneumonia. Patient remains on antibiotics and nebulizers.
[2018-12-20 12:00] VITALS: BP 128/79
[2018-12-20 16:00] VITALS: BP 114/62
--- NOTE | 2018-12-20 16:31 | IPNPDOC ---
Text Note Date of Service The patient was seen on 12/20/18. NOTE Patient seen and examined. Reported much improved respirations. Denies any chest pain, pressure, or discomfort. Continues to report cough. reported diarrhea PHYSICAL EXAMINATION: GENERAL: Patient alert, comfortable, frail, in no acute distress. HEENT: Normocephalic, atraumatic. PULMONARY: Right-sided rhonchi. CARDIAC: Regular, S1, S2. ABDOMEN: Soft, nontender. Positive bowel sounds. EXTREMITIES: No clubbing, cyanosis, or edema. ASSESSMENT AND PLAN: This is a 68-year-old female patient with underlying medical history of chronic obstructive pulmonary disease (COPD), chronic hypoxic respiratory failure - on two liters of oxygen via nasal cannula, history of smoking, chronic diastolic congestive heart failure, pulmonary artery hypertension, end-stage renal disease, dialysis Tuesday, Tuesday, Tuesday secondary to polycystic kidney disease, hypothyroidism, presented with shortness of breath, coughing, productive of thick mucus and has missed dialysis for a week with hyperkalemia. PROBLEMS: 1. Hyperkalemia secondary to missing dialysis with underlying end-stage renal disease. Patient emergently dialyzed. Currently with normalizing electrolytes. Nephrology consulted. Continue current medication. Further dialysis as per nephrology. 2. Community-acquired bacterial pneumonia. Followup cultures - sputum culture, blood culture. Followup C-reactive protein. Patient currently on Zosyn. Will consider de-escalating antibiotics once the patient is improved. 3. Chronic obstructive pulmonary disease with chronic hypoxia. Currently not having any wheeze. Continue nebulizer treatment and Symbicort. Antibiotics as mentioned above. Oxygen supplementation. 4. diarrhea , likely 2/2 to mal-absorption . trial of creon. stool study ordered 5. Hypertension. Continue current medication. 6. Depression. Continue her current medication. 7. Hypothyroidism. Continue Synthroid. 8. Secondary hyperparathyroidism. Continue current medication. Further adjustment as per nephrology. 9. Pulmonary artery hypertension. Oxygen supplementation. 10. Chronic diastolic congestive heart failure. Dialysis and fluid removal as per nephrology. DVT ppx heparin SQ DISPOSITION: Pending clinical improvement. Follow cultures. Followup C-reactive protein. Physical therapy has been ordered. VS,Fishbone, I+O VS, Fishbone, I+O Laboratory Tests 12/20/18 04:25 Red Blood Count 3.96 L, Mean Corpuscular Volume 88.1, Mean Corpuscular H emoglobin 25.8 L, Mean Corpuscular Hemoglobin Concent 29.2 L, Red Cell Distribution Width 20.2 H, Anion Gap 9 Vital Signs Date Time Temp Pulse Resp B/P (MAP) Pulse Ox O2 Delivery O2 Flow Rate FiO2 12/20/18 16:00 2.0 12/20/18 16:00 99.9 71 18 114/62 (79) 98 12/20/18 08:00 Nasal Cannula 12/19/18 04:00 96 I&O- Last 24 Hours up to 6 AM 12/20/18 06:00 Intake Total 760 ml Balance 760 ml SHYANNE KIMBALL MD Dec 20, 2018 16:31
[2018-12-20 20:00] VITALS: BP 131/73
[2018-12-20] MEDS: ESCITALOPRAM OXALATE 10 MG TAB (LEXAPRO) PO SCH (20:18)
[2018-12-20] MEDS: LORazepam 1 MG TAB PO PRN (20:20)
[2018-12-21] VITALS: BP 133/79
[2018-12-21] MEDS: PIPERACILLIN/TAZOBACTAM SOD 2.25 GM in D5W MINI-BAG PLUS 50 ML IV SCH (01:05)
[2018-12-21 04:00] VITALS: BP 146/83
[2018-12-21 04:41] LABS: HEMATOCRIT 29.1 % (36.0-47.0); HEMOGLOBIN 8.6 g/dl (12.0-15.5); MEAN CORPUSCULAR HEMOGLOBIN 26.5 pg (27.0-33.0); MEAN CORPUSCULAR HGB CONC 29.6 g/dl (32.0-36.5); MEAN CORPUSCULAR VOLUME 89.8 fl (80.0-96.0); PLATELET COUNT, AUTOMATED 137 10^3/uL (150-450); RED BLOOD COUNT 3.24 10^6/uL (4.00-5.40); WHITE BLOOD COUNT 5.8 10^3/uL (4.0-10.0)
[2018-12-21 05:04] LABS: ALBUMIN 2.3 GM/DL (3.2-5.2); C REACTIVE PROTEIN QUANTITATIV 3.26 MG/DL (0.00-0.30); CALCIUM LEVEL 7.2 MG/DL (8.8-10.2); CREATININE FOR GFR 5.35 MG/DL (0.55-1.30); GLOMERULAR FILTRATION RATE 8.4 (>39); PHOSPHORUS LEVEL 6.3 MG/DL (2.5-4.9)
[2018-12-21] MEDS: ASPIRIN 81 MG ENTERIC TAB PO SCH (06:13)
[2018-12-21] MEDS: LEVOTHYROXINE 137MCG TABLET (0.137MG) PO SCH (06:13)
[2018-12-21] MEDS: SYMBICORT 160/4.5MCG INHALER 6GM INH SCH ×2 (07:29→20:59)
[2018-12-21 08:00] VITALS: BP 130/76
[2018-12-21] MEDS: CREON-12 CAPSULE PO SCH ×3 (08:00→18:00)
[2018-12-21] MEDS: CALCIUM ACETATE 667 MG GELCAP PO SCH ×3 (08:00→18:00)
[2018-12-21] MEDS: HEPARIN SOD (PORCINE) 5000 UNITS/ML VIAL SQ SCH ×2 (09:00→20:53)
[2018-12-21] MEDS ORDERED: LevoFLOXacin IV 250 MG in APPROPRIATE DILUENT 1 EA IV SCH (11:45)
[2018-12-21 12:45] VITALS: BP 126/76
[2018-12-21] MEDS: LOSARTAN 50 MG TAB PO SCH (12:48)
[2018-12-21] MEDS: amLODIPine 10 MG TAB PO SCH (12:48)
[2018-12-21] MEDS: ACETAMINOPHEN TAB 650MG DOSE (2X325MG) PO PRN (12:53)
[2018-12-21] MEDS ORDERED: LevoFLOXacin IV 500 MG in APPROPRIATE DILUENT 1 EA IV SCH (15:00)
[2018-12-21 16:00] VITALS: BP 110/69
--- NOTE | 2018-12-21 17:03 | IPNPDOC ---
Text Note Date of Service The patient was seen on 12/21/18. NOTE Patient seen and examined. Reported much improved respirations. Denies any chest pain, pressure, or discomfort. Continues to report cough. reported diarrhea PHYSICAL EXAMINATION: GENERAL: Patient alert, comfortable, frail, in no acute distress. HEENT: Normocephalic, atraumatic. PULMONARY: Right-sided rhonchi. CARDIAC: Regular, S1, S2. ABDOMEN: Soft, nontender. Positive bowel sounds. EXTREMITIES: No clubbing, cyanosis, or edema. ASSESSMENT AND PLAN: This is a 68-year-old female patient with underlying medical history of chronic obstructive pulmonary disease (COPD), chronic hypoxic respiratory failure - on two liters of oxygen via nasal cannula, history of smoking, chronic diastolic congestive heart failure, pulmonary artery hypertension, end-stage renal disease, dialysis Tuesday, Tuesday, Tuesday secondary to polycystic kidney disease, hypothyroidism, presented with shortness of breath, coughing, productive of thick mucus and has missed dialysis for a week with hyperkalemia. PROBLEMS: 1. Hyperkalemia secondary to missing dialysis with underlying end-stage renal disease. Patient emergently dialyzed. Currently with normalizing electrolytes. Nephrology consulted. Continue current medication. Further dialysis as per nephrology. 2. Pseudomonas bacterial pneumonia. Followup cultures - sputum culture, blood culture. Followup C-reactive protein. switch zosyn to levaquin. 3. Chronic obstructive pulmonary disease with chronic hypoxia. Currently not having any wheeze. Continue nebulizer treatment and Symbicort. Antibiotics as mentioned above. Oxygen supplementation. 4. diarrhea , likely 2/2 to mal-absorption . trial of creon. stool study ordered 5. Hypertension. Continue current medication. 6. Depression. Continue her current medication. 7. Hypothyroidism. Continue Synthroid. 8. Secondary hyperparathyroidism. Continue current medication. Further adjustment as per nephrology. 9. Pulmonary artery hypertension. Oxygen supplementation. 10. Chronic diastolic congestive heart failure. Dialysis and fluid removal as per nephrology. DVT ppx heparin SQ DISPOSITION: Pending clinical improvement. Followup C-reactive protein. Physical therapy has been ordered. VS,Fishbone, I+O VS, Fishbone, I+O Laboratory Tests 12/21/18 04:09 Red Blood Count 3.24 L, Mean Corpuscular Volume 89.8, Mean Corpuscular Hemoglobin 26.5 L, Mean Corpuscular Hemoglobin Concent 29.6 L, Red Cell Distribution Width 19.9 H, Anion Gap 9 Vital Signs Date Time Temp Pulse Resp B/P (MAP) Pulse Ox O2 Delivery O2 Flow Rate FiO2 12/21/18 12:48 76 126/76 12/21/18 12:45 99.1 20 95 2.0 12/20/18 08:00 Nasal Cannula 12/19/18 04:00 96 I&O- Last 24 Hours up to 6 AM 12/21/18 05:59 Intake Total 850 ml Output Total 100 ml Balance 750 ml SHYANNE KIMBALL MD Dec 21, 2018 17:03
--- NOTE | 2018-12-21 17:15 | IPN ---
DATE: 12/21/2018 Mrs. Blackmon is seen this morning during hemodialysis. Yesterday she infiltrated her arteriovenous (AV) fistula and could not receive most of her dialysis treatment. She was dialyzed probably only for an hour. This morning there was no problem getting the needles in and her fistula is working well. The patient has dyspnea, which is unchanged, but denies any fever, chills, nausea or vomiting. PHYSICAL EXAMINATION: Temperature 99.4 degrees Fahrenheit, heart rate 75 per minute and respiratory rate 20 per minute. Blood pressure 130/76 mmHg and oxygen saturation 96% on 2 liters of oxygen. Her head is atraumatic. Neck is supple and without any jugular venous distention (JVD) or thyroid enlargement. Heart sounds are regular and lungs with diminished breath sounds. Abdomen is soft with large polycystic kidneys and polycystic liver. Bowel sounds are present. Extremities: Have no cyanosis or clubbing. Neurologically he is awake, alert and oriented times three. Today's labs show WBC count 5.8, hemoglobin 8.6 and hematocrit 29.1. Sodium 139, potassium 5.0, CO2 24, BUN 55 and creatinine 5.35. Calcium 7.2 and phosphorus 6.3. PROBLEM #1: End-stage renal disease. The patient is being dialyzed today and fistula is working well. She will complete her 3-hour dialysis treatment today. PROBLEM #2: Hyperkalemia. Slight improvement since yesterday. She was given one dose of Veltassa yesterday and it is likely to improve further with dialysis today. PROBLEM #3: Acute blood loss anemia. She did have some bleeding from her fistula site yesterday, and her hemoglobin dropped a bit. We will need to recheck it again tomorrow. There is no emergent need for a transfusion. PROBLEM #4: Pneumonia. The patient seems to be doing well and remains on levofloxacin. PROBLEM #5: Chronic obstructive pulmonary disease. This is a chronic issue. The patient has advanced chronic lung disease and remains on nebulizers and oxygen. PROBLEM #6: Hypertension. Blood pressure is reasonably well controlled on current antihypertensive meds, and her volume status is reasonably well compensated.
[2018-12-21 20:00] VITALS: BP 133/75
[2018-12-21] MEDS: LORazepam 1 MG TAB PO PRN (20:47)
[2018-12-21] MEDS: ESCITALOPRAM OXALATE 10 MG TAB (LEXAPRO) PO SCH (20:47)
[2018-12-22] VITALS: BP 133/85
[2018-12-22 04:00] VITALS: BP 130/78
[2018-12-22 04:26] LABS: HEMATOCRIT 31.9 % (36.0-47.0); MEAN CORPUSCULAR HEMOGLOBIN 25.3 pg (27.0-33.0); MEAN CORPUSCULAR HGB CONC 28.2 g/dl (32.0-36.5); MEAN CORPUSCULAR VOLUME 89.6 fl (80.0-96.0); PLATELET COUNT, AUTOMATED 143 10^3/uL (150-450); RED BLOOD COUNT 3.56 10^6/uL (4.00-5.40); WHITE BLOOD COUNT 5.7 10^3/uL (4.0-10.0)
[2018-12-22 04:50] LABS: ALBUMIN 2.3 GM/DL (3.2-5.2); C REACTIVE PROTEIN QUANTITATIV 2.42 MG/DL (0.00-0.30); CALCIUM LEVEL 7.5 MG/DL (8.8-10.2); CREATININE FOR GFR 3.34 MG/DL (0.55-1.30); GLOMERULAR FILTRATION RATE 14.5 (>39); MAGNESIUM LEVEL 1.9 MG/DL (1.8-2.4); PHOSPHORUS LEVEL 4.3 MG/DL (2.5-4.9); POTASSIUM SERUM 4.3 MEQ/L (3.5-5.1)
[2018-12-22] MEDS: LEVOTHYROXINE 137MCG TABLET (0.137MG) PO SCH (06:17)
[2018-12-22] MEDS: SYMBICORT 160/4.5MCG INHALER 6GM INH SCH ×2 (07:44→20:36)
[2018-12-22 08:00] VITALS: BP 139/72
[2018-12-22] MEDS: amLODIPine 10 MG TAB PO SCH (08:52)
[2018-12-22] MEDS: CREON-12 CAPSULE PO SCH ×3 (08:52→17:32)
[2018-12-22] MEDS: CALCIUM ACETATE 667 MG GELCAP PO SCH ×3 (08:52→17:32)
[2018-12-22] MEDS: LOSARTAN 50 MG TAB PO SCH (08:53)
[2018-12-22] MEDS: HEPARIN SOD (PORCINE) 5000 UNITS/ML VIAL SQ SCH ×2 (08:53→21:00)
[2018-12-22] MEDS: LORazepam 1 MG TAB PO PRN ×2 (09:05→21:54)
[2018-12-22 12:00] VITALS: BP 133/78
[2018-12-22] MEDS: ACETAMINOPHEN TAB 650MG DOSE (2X325MG) PO PRN (13:14)
--- NOTE | 2018-12-22 14:35 | IPN ---
DATE: 12/22/2018 Mrs. Blackmon is seen this morning on her bedside. She is laying in the bed and denies any complaints. She was dialyzed yesterday due to difficulty with her fistula on Tuesday. Her regular dialysis days are Tuesday, Tuesday and Tuesday. Her dyspnea has improved and denies any fever or chills. PHYSICAL EXAMINATIONS: Temperature 99.5 degrees Fahrenheit, heart rate 88 per minute and respiratory rate 20 per minute. Blood pressure 139/72 mmHg and oxygen saturation 96% on 2 liters oxygen. Her head is atraumatic. She looks quite investigated and chronically ill but not in any acute distress. Her neck is supple and JVD is not elevated. Heart: Sounds are regular and lungs with diminished breath sounds bilaterally. Abdomen: Soft and large polycystic kidneys and polycystic liver are easily palpable. Extremities: Have no cyanosis or clubbing. Left forearm AV fistula is patent. Neurologically she is awake, alert and at her baseline mentation. Today's labs show WBC count 5.7, hemoglobin 9.0 and hematocrit 31.9. Platelets 143. Sodium 138, potassium 4.3, CO2 29, BUN 27 and creatinine 3.34. Glucose 66 and calcium 7.5. C-reactive protein is down to 6.42. PROBLEMS: 1. End-stage renal disease. The patient was dialyzed yesterday and was scheduled for next dialysis on Tuesday. She can be then switched to her regular days of Tuesday, Tuesday and Tuesday next week. 2. Congestive heart failure. Volume status is very well compensated and we remove only about 1 liter of fluid with each dialysis. 3. Hypertension. Blood pressure seems very well controlled on current medications and no changes are being made today. 4. Anemia. She did have some blood loss due to bleeding from her AV fistula site yesterday and day before yesterday. There is no emergent need for a transfusion and we will give her a dose of Aranesp with her dialysis. 5. Pneumonia. The patient remains on Levaquin and he has been now switched to oral with dose of 500 mg every 48 hours. This is probably somewhat high dose for her because of very low muscle mass and weight of only about 34 kg. I will let pharmacy adjust the dose.
[2018-12-22 15:30] VITALS: BP 123/71
--- NOTE | 2018-12-22 17:55 | IPNPDOC ---
Text Note Date of Service The patient was seen on 12/22/18. NOTE Patient seen and examined. tolerating po. reported loose BM. Denies any chest pain, pressure, or discomfort. Continues to report cough. PHYSICAL EXAMINATION: GENERAL: Patient alert, comfortable, frail, in no acute distress. HEENT: Normocephalic, atraumatic. PULMONARY: Right-sided rhonchi. CARDIAC: Regular, S1, S2. ABDOMEN: Soft, nontender. Positive bowel sounds. EXTREMITIES: No clubbing, cyanosis, or edema. ASSESSMENT AND PLAN: This is a 68-year-old female patient with underlying medical history of chronic obstructive pulmonary disease (COPD), chronic hypoxic respiratory failure - on two liters of oxygen via nasal cannula, history of smoking, chronic diastolic congestive heart failure, pulmonary artery hypertension, end-stage renal disease, dialysis Tuesday, Tuesday, Tuesday secondary to polycystic kidney disease, hypothyroidism, presented with shortness of breath, coughing, productive of thick mucus and has missed dialysis for a week with hyperkalemia. PROBLEMS: 1. Hyperkalemia secondary to missing dialysis with underlying end-stage renal disease. Patient emergently dialyzed. Currently with normalizing electrolytes. Nephrology consulted. Continue current medication. Further dialysis as per nephrology. 2. Pseudomonas bacterial pneumonia. Followup cultures - sputum culture, blood culture. Followup C-reactive protein. levaquin. 3. Chronic obstructive pulmonary disease with chronic hypoxia. Currently not having any wheeze. Continue nebulizer treatment and Symbicort. Antibiotics as mentioned above. Oxygen supplementation. 4. diarrhea , likely 2/2 to mal-absorption . trial of creon. stool study ordered 5. Hypertension. Continue current medication. 6. Depression. Continue her current medication. 7. Hypothyroidism. Continue Synthroid. 8. Secondary hyperparathyroidism. Continue current medication. Further adjustment as per nephrology. 9. Pulmonary artery hypertension. Oxygen supplementation. 10. Chronic diastolic congestive heart failure. Dialysis and fluid removal as per nephrology. DVT ppx heparin SQ DISPOSITION: Pending clinical improvement. passed pt. DC in 1-2 days VS,Saul, I+O VS, Radhae, I+O Laboratory Tests 12/22/18 03:51 Red Blood Count 3.56 L, Mean Corpuscular Volume 89.6, Mean Corpuscular Hemoglobin 25.3 L, Mean Corpuscular Hemoglobin Concent 28.2 L, Red Cell Distribution Width 19.7 H, Anion Gap 7 L Vital Signs Date Time Temp Pulse Resp B/P (MAP) Pulse Ox O2 Delivery O2 Flow Rate FiO2 12/22/18 14:44 100.1 12/22/18 12:00 82 20 133/78 (96) 96 2.0 12/22/18 04:00 Nasal Cannula 12/19/18 04:00 96 I&O- Last 24 Hours up to 6 AM 12/22/18 06:00 Intake Total 420 ml Output Total 1150 ml Balance -730 ml SHYANNE KIMBALL MD Dec 22, 2018 17:55
[2018-12-22] MEDS: CREON-24 CAPSULE PO SCH (18:27)
[2018-12-22] MEDS: ESCITALOPRAM OXALATE 10 MG TAB (LEXAPRO) PO SCH (21:00)
[2018-12-22 22:00] VITALS: BP 135/83
[2018-12-23] MEDS: LEVOTHYROXINE 137MCG TABLET (0.137MG) PO SCH (05:41)
[2018-12-23] MEDS: CREON-24 CAPSULE PO SCH ×3 (05:41→17:42)
[2018-12-23] MEDS: LOSARTAN 50 MG TAB PO SCH (05:42)
[2018-12-23] MEDS: amLODIPine 10 MG TAB PO SCH (05:43)
[2018-12-23] MEDS: HEPARIN SOD (PORCINE) 5000 UNITS/ML VIAL SQ SCH ×2 (05:43→20:05)
[2018-12-23] MEDS: ASPIRIN 81 MG ENTERIC TAB PO SCH (05:43)
[2018-12-23] MEDS: CALCIUM ACETATE 667 MG GELCAP PO SCH ×3 (05:46→17:42)
[2018-12-23 05:56] LABS: HEMATOCRIT 30.8 % (36.0-47.0); HEMOGLOBIN 8.8 g/dl (12.0-15.5); MEAN CORPUSCULAR HEMOGLOBIN 25.3 pg (27.0-33.0); MEAN CORPUSCULAR HGB CONC 28.6 g/dl (32.0-36.5); MEAN CORPUSCULAR VOLUME 88.5 fl (80.0-96.0); PLATELET COUNT, AUTOMATED 169 10^3/uL (150-450); RED BLOOD COUNT 3.48 10^6/uL (4.00-5.40)
[2018-12-23 06:00] VITALS: BP 137/77
[2018-12-23 06:21] LABS: ALBUMIN 2.4 GM/DL (3.2-5.2); C REACTIVE PROTEIN QUANTITATIV 2.45 MG/DL (0.00-0.30); CALCIUM LEVEL 7.5 MG/DL (8.8-10.2); CREATININE FOR GFR 4.45 MG/DL (0.55-1.30); GLOMERULAR FILTRATION RATE 10.4 (>39); PHOSPHORUS LEVEL 5.2 MG/DL (2.5-4.9); POTASSIUM SERUM 4.5 MEQ/L (3.5-5.1)
[2018-12-23] MEDS: SYMBICORT 160/4.5MCG INHALER 6GM INH SCH ×2 (08:03→21:06)
[2018-12-23] MEDS ORDERED: DARBEPOETIN 100 MCG/0.5 ML *DIALYSIS* SYRINGE (J0882) IV SCH (10:00)
[2018-12-23 14:00] VITALS: BP 127/71
--- NOTE | 2018-12-23 14:07 | IPNPDOC ---
Text Note Date of Service The patient was seen on 12/23/18. NOTE Patient seen and examined. tolerating po. reported loose BM. Denies any chest pain, pressure, or discomfort. Continues to report cough. PHYSICAL EXAMINATION: GENERAL: Patient alert, comfortable, frail, in no acute distress. HEENT: Normocephalic, atraumatic. PULMONARY: Right-sided rhonchi. CARDIAC: Regular, S1, S2. ABDOMEN: Soft, nontender. Positive bowel sounds. EXTREMITIES: No clubbing, cyanosis, or edema. ASSESSMENT AND PLAN: This is a 68-year-old female patient with underlying medical history of chronic obstructive pulmonary disease (COPD), chronic hypoxic respiratory failure - on two liters of oxygen via nasal cannula, history of smoking, chronic diastolic congestive heart failure, pulmonary artery hypertension, end-stage renal disease, dialysis Tuesday, Tuesday, Tuesday secondary to polycystic kidney disease, hypothyroidism, presented with shortness of breath, coughing, productive of thick mucus and has missed dialysis for a week with hyperkalemia. PROBLEMS: 1. Hyperkalemia secondary to missing dialysis with underlying end-stage renal disease. resolved with HD. Nephrology consulted. Continue current medication. Further dialysis as per nephrology. 2. Pseudomonas bacterial pneumonia. Followup cultures - sputum culture, blood culture. Followup C-reactive protein. levaquin. 3. Chronic obstructive pulmonary disease with chronic hypoxia. Currently not having any wheeze. Continue nebulizer treatment and Symbicort. Antibiotics as mentioned above. Oxygen supplementation. 4. diarrhea , likely 2/2 to mal-absorption . trial of creon. stool study ordered 5. Hypertension. Continue current medication. 6. Depression. Continue her current medication. 7. Hypothyroidism. Continue Synthroid. 8. Secondary hyperparathyroidism. Continue current medication. Further adjustment as per nephrology. 9. Pulmonary artery hypertension. Oxygen supplementation. 10. Chronic diastolic congestive heart failure. Dialysis and fluid removal as per nephrology. DVT ppx heparin SQ DISPOSITION: Pending clinical improvement. passed pt. DC in 1-2 days VS,Saul, I+O VS, Radhae, I+O Laboratory Tests 12/23/18 05:40 Red Blood Count 3.48 L, Mean Corpuscular Volume 88.5, Mean Corpuscular Hemoglobin 25.3 L, Mean Corpuscular Hemoglobin Concent 28.6 L, Red Cell Distribution Width 19.9 H, Anion Gap 7 L Vital Signs Date Time Temp Pulse Resp B/P (MAP) Pulse Ox O2 Delivery O2 Flow Rate FiO2 12/23/18 06:00 97.4 76 18 137/77 (97) 99 2.0 12/22/18 22:00 Nasal Cannula 12/19/18 04:00 96 I&O- Last 24 Hours up to 6 AM 12/23/18 06:00 Intake Total 1140 ml Output Total 50 ml Balance 1090 ml SHYANNE KIMBALL MD Dec 23, 2018 14:07
[2018-12-23] MEDS: LevoFLOXacin 500 MG TABLET PO SCH (15:17)
[2018-12-23] MEDS: LORazepam 1 MG TAB PO PRN (20:04)
[2018-12-23] MEDS: ESCITALOPRAM OXALATE 10 MG TAB (LEXAPRO) PO SCH (20:04)
[2018-12-23 22:00] VITALS: BP 120/73
[2018-12-24 06:00] VITALS: BP 140/80
[2018-12-24 06:23] LABS: HEMOGLOBIN 8.5 g/dl (12.0-15.5); MEAN CORPUSCULAR HEMOGLOBIN 25.4 pg (27.0-33.0); MEAN CORPUSCULAR HGB CONC 28.3 g/dl (32.0-36.5); MEAN CORPUSCULAR VOLUME 89.6 fl (80.0-96.0); PLATELET COUNT, AUTOMATED 151 10^3/uL (150-450); RED BLOOD COUNT 3.35 10^6/uL (4.00-5.40)
[2018-12-24 06:43] LABS: ALBUMIN 2.4 GM/DL (3.2-5.2); C REACTIVE PROTEIN QUANTITATIV 2.02 MG/DL (0.00-0.30); CALCIUM LEVEL 7.8 MG/DL (8.8-10.2); CREATININE FOR GFR 3.06 MG/DL (0.55-1.30); GLOMERULAR FILTRATION RATE 16.1 (>39); MAGNESIUM LEVEL 1.8 MG/DL (1.8-2.4); PHOSPHORUS LEVEL 3.6 MG/DL (2.5-4.9); POTASSIUM SERUM 4.3 MEQ/L (3.5-5.1)
[2018-12-24] MEDS: LEVOTHYROXINE 137MCG TABLET (0.137MG) PO SCH (06:54)
[2018-12-24] MEDS: CALCIUM ACETATE 667 MG GELCAP PO SCH ×3 (08:03→18:00)
[2018-12-24] MEDS: CREON-24 CAPSULE PO SCH ×3 (08:04→18:00)
[2018-12-24] MEDS: ASPIRIN 81 MG ENTERIC TAB PO SCH (08:04)
[2018-12-24] MEDS: amLODIPine 10 MG TAB PO SCH (08:04)
[2018-12-24] MEDS: LOSARTAN 50 MG TAB PO SCH (08:04)
[2018-12-24] MEDS: HEPARIN SOD (PORCINE) 5000 UNITS/ML VIAL SQ SCH ×2 (08:05→20:45)
[2018-12-24] MEDS: SYMBICORT 160/4.5MCG INHALER 6GM INH SCH ×2 (08:32→20:44)
--- NOTE | 2018-12-24 11:01 | IPN ---
DATE OF SERVICE: 12/23/2018 SUBJECTIVE: The patient was seen and examined at the bedside today morning during hemodialysis procedure. She is tolerating hemodialysis procedure well. She reports that she is feeling better today. OBJECTIVE: Vital signs: Temperature is 97.4 degrees Fahrenheit, blood pressure 137/77, pulse is 76, respiratory rate of 18, saturating 99% on oxygen at 2 liters via nasal cannula. Intake and output: Urine output is not recorded. Weight in the bed scale is 32.1 kg. PHYSICAL EXAMINATION: General: The patient is awake, alert, oriented times three, lying in bed, getting hemodialysis. She is weak and cachectic. Head and neck examination: Bitemporal wasting. Mucous membranes are moist. Neck is supple. She has a right internal jugular (vein) (IJ) tunneled hemodialysis catheter. Cardiovascular: S1, S2. Regular rate. No edema of the bilateral lower extremities. Respiratory: Decreased breath sounds at the bases. Otherwise, no rales or rhonchi. Abdomen: Soft. Positive bowel sounds. Bilateral large polycystic kidney and polycystic liver are palpable. Musculoskeletal: No clubbing or cyanosis. Pulses are 2+. Central nervous system (AMPOULE EXAMINER): No focal deficit. Power is 5/5 in all extremities. LABORATORY RESULTS: Complete blood count (CBC) showed a WBC of 6, hemoglobin is 8.8, platelets are 169. Basic metabolic profile (BMP) showed sodium 137, potassium 4.5, chloride 102, bicarbonate 28, BUN 36, creatinine is 4.4, calcium 7.5, phosphorus is 5.2, albumin is 2.4. MICROBIOLOGY: Sputum for culture on 12/19/2018 is growing Pseudomonas aeruginosa. CURRENT INPATIENT MEDICATIONS: The patient's medications were all reviewed by me. She is currently on oral Levaquin 500 mg by mouth every 48 hours. That was started today morning. No other change in the medications today as compared with yesterday. ASSESSMENT AND PLAN: 1. End-stage renal disease. The patient is being dialyzed today according to Tuesday, , Tuesday schedule this week. She will be switched back to Tuesday, Tuesday, Tuesday schedule from next week onwards. 2. Congestive heart failure. Volume status is optimized. I would try to remove 500 mL to 1 liter of fluid as tolerated by her blood pressure. 3. Pseudomonas pneumonia. The patient is currently on Levaquin. Dose is adequate for her renal function. 4. Anemia secondary to end-stage renal disease. The patient had bleeding during this hospitalization. She was given a dose of Aranesp 100 mcg with hemodialysis today. 5. Hypertension. Continue current dose of amlodipine 10 mg daily and losartan 100 mg by mouth daily.
[2018-12-24 14:00] VITALS: BP 128/76
[2018-12-24] MEDS: ACETAMINOPHEN TAB 650MG DOSE (2X325MG) PO PRN (15:50)
[2018-12-24] MEDS: LORazepam 1 MG TAB PO PRN (20:45)
[2018-12-24] MEDS: ESCITALOPRAM OXALATE 10 MG TAB (LEXAPRO) PO SCH (20:45)
[2018-12-24 22:00] VITALS: BP 118/65
[2018-12-25 06:00] VITALS: BP 142/83
[2018-12-25] MEDS: LEVOTHYROXINE 137MCG TABLET (0.137MG) PO SCH (06:02)
[2018-12-25] MEDS: HEPARIN SOD (PORCINE) 5000 UNITS/ML VIAL SQ SCH ×2 (06:03→20:05)
[2018-12-25] MEDS: LOSARTAN 50 MG TAB PO SCH (06:03)
[2018-12-25] MEDS: amLODIPine 10 MG TAB PO SCH (06:03)
[2018-12-25 06:47] LABS: HEMATOCRIT 30.3 % (36.0-47.0); HEMOGLOBIN 8.7 g/dl (12.0-15.5); MEAN CORPUSCULAR HEMOGLOBIN 25.4 pg (27.0-33.0); MEAN CORPUSCULAR HGB CONC 28.7 g/dl (32.0-36.5); MEAN CORPUSCULAR VOLUME 88.6 fl (80.0-96.0); PLATELET COUNT, AUTOMATED 170 10^3/uL (150-450); RED BLOOD COUNT 3.42 10^6/uL (4.00-5.40); WHITE BLOOD COUNT 5.2 10^3/uL (4.0-10.0)
[2018-12-25 07:43] LABS: ALBUMIN 2.5 GM/DL (3.2-5.2); C REACTIVE PROTEIN QUANTITATIV 1.74 MG/DL (0.00-0.30); CALCIUM LEVEL 7.7 MG/DL (8.8-10.2); CREATININE FOR GFR 4.02 MG/DL (0.55-1.30); GLOMERULAR FILTRATION RATE 11.7 (>39); MAGNESIUM LEVEL 1.7 MG/DL (1.8-2.4); PHOSPHORUS LEVEL 4.7 MG/DL (2.5-4.9); POTASSIUM SERUM 4.7 MEQ/L (3.5-5.1)
--- NOTE | 2018-12-25 07:45 | IPN ---
DATE: 12/24/2018 The patient is seen and examined. No acute events overnight. Denies any chest pain, pressure or discomfort. Reported respirations much improved. Minimal cough. Diarrhea also improved. VITAL SIGNS: Temperature 98.7, pulse 79, respirations 17, blood pressure 128/76, pulse oximetry 100% on 2 liters nasal cannula. LABORATORY: WBC 5, hemoglobin and hematocrit 8.5/30, platelets 151. Chemistry: Sodium 138, potassium 4.3, chloride 100, bicarbonate 30, BUN 19, creatinine 3.06. PHYSICAL EXAMINATION: GENERAL: The patient is frail, comfortable and in no acute distress. HEENT: Normocephalic, atraumatic. PULMONARY: Bilaterally clear. CARDIAC: Regular. S1, S2. ABDOMEN: Soft, hepatomegaly. Nontender. Positive bowel sounds. EXTREMITIES: No clubbing, cyanosis or edema. ASSESSMENT AND PLAN: This is a 68-year-old female patient with underlying medical history of chronic obstructive pulmonary disease (COPD), chronic hypoxic respiratory failure on 2 liters of oxygen via nasal cannula at home, history of smoking, chronic diastolic congestive heart failure (CHF), pulmonary artery hypertension, end stage renal disease on dialysis Tuesday, Tuesday and Tuesday secondary to polycystic kidney disease with polycystic liver disease, hypothyroidism, who presented with shortness of breath, cough productive of thick sputum, missing dialysis for a week. 1. Hyperkalemia secondary to missing dialysis with underlying end stage renal disease. Dialysis as per nephrology. Continue current medications. Currently resolved. 2. Pseudomonas bacterial pneumonia. Cultures appreciated. Currently on Levaquin. C-reactive protein improved. 3. Chronic obstructive pulmonary disease (COPD) with chronic hypoxia. Currently does not have any wheeze. Nebulizer treatments. Symbicort. Continue antibiotics mentioned above. Oxygen supplementation. 4. Diarrhea. Likely secondary to malabsorption. Possible pancreatic insufficiency. Trial of Creon seems to be helping. Stool study appreciated. Outpatient followup. 5. Hypertension. Continue current medications. 6. Depression. Continue current medications. 7. Hypothyroidism. Continue Synthroid. 8. Secondary hyperparathyroidism. Continue current medications and adjustments as per nephrology. 9. Pulmonary artery hypertension. Oxygen supplementation. 10. Chronic diastolic congestive heart failure (CHF). Dialysis and fluid removal as per nephrology. 11. Deep vein thrombosis (DVT) prophylaxis. Heparin subcutaneously. DISPOSITION: Passed physical therapy (PT). Dialysis on Tuesday and likely discharge on Tuesday.
[2018-12-25] MEDS: CALCIUM ACETATE 667 MG GELCAP PO SCH ×3 (07:51→18:00)
[2018-12-25] MEDS: CREON-24 CAPSULE PO SCH ×3 (07:51→18:00)
[2018-12-25] MEDS: SYMBICORT 160/4.5MCG INHALER 6GM INH SCH ×2 (08:37→21:00)
[2018-12-25] MEDS ORDERED: LIDOCAINE 1% SDV 5 ML VIAL SQ ONE (11:00)
[2018-12-25] MEDS ORDERED: LEVA1TAB2 PO (11:34)
[2018-12-25] MEDS ORDERED: CREO24CA PO (11:34)
--- NOTE | 2018-12-25 13:51 | IPN ---
DATE OF SERVICE: 12/24/2018 SUBJECTIVE: The patient was seen and examined at the bedside today morning. The patient reports that she is feeling much better. She denies any shortness of breath at this point. She was dialyzed yesterday. She tolerated the hemodialysis procedure well. 500 mL of fluid was removed. The patient continues to be on antibiotics at this point. OBJECTIVE: Vital Signs: Temperature 98.7 degrees Fahrenheit. Blood pressure 128/76. Pulse 79. Respiratory rate 17. Saturating 100% on nasal cannula at 2 liters. Intake and Output: Urine output is not recorded. Ultrafiltration with hemodialysis was 500 mL. Weight on the bed scale is not available. PHYSICAL EXAMINATION: General: Patient is awake, alert and oriented times three, weak and cachectic, laying in the bed. Head and Neck Exam: Patient has bitemporal wasting. Neck is supple. There is no jugular venous distention (JVD). Cardiovascular: S1 and S2. Regular rate. No edema of the bilateral lower extremities. Respiratory: Decreased breath sounds at the bases. Otherwise no active rales or rhonchi. Abdomen: Soft. Positive bowel sounds. Bilateral large polycystic kidney and polycystic liver in the right upper quadrant was palpable. Musculoskeletal: No clubbing or cyanosis. The patient has muscle wasting. Central Nervous System: No focal deficit. Power is 5/5 in all extremities. LAB REVIEW: CBC showed a WBC of 5, hemoglobin 8.5, and platelets 151. BMP showed sodium 138, potassium 4.3, chloride 100, bicarbonate 30, BUN 19, creatinine 3, calcium 7.8, phosphorus 3.6, magnesium 1.8. CURRENT INPATIENT MEDICATIONS: Patient's medications were all reviewed by me. There is no change in the medications today as compared with yesterday. ASSESSMENT AND PLAN: 1. End stage renal disease. The patient's regular dialysis days are Tuesday, Tuesday and Tuesday. She will be dialyzed tomorrow morning as per her regular schedule. 2. Pseudomonas aeruginosa pneumonia. The patient is currently on Levaquin. Her symptoms are improving now. 3. Anemia secondary to end stage renal disease. Continue current dose of Aranesp. If hemoglobin drops to 8 or below, she will be given packed red blood cell transfusion. 4. Hypertension. Blood pressure is optimized. Continue current dose of amlodipine and losartan.
[2018-12-25] MEDS: LevoFLOXacin 500 MG TABLET PO SCH (15:31)
[2018-12-25] MEDS ORDERED: METOCLOPRAMIDE INJ 10MG/2ML VIAL (J2765) IV PRN (18:30)
[2018-12-25] MEDS: ESCITALOPRAM OXALATE 10 MG TAB (LEXAPRO) PO SCH (20:04)
[2018-12-25] MEDS: LORazepam 1 MG TAB PO PRN (20:04)
--- NOTE | 2018-12-25 20:19 | DSES ---
DATE OF ADMISSION: 12/18/2018 DATE OF DISCHARGE: HYDRAULIC MODELING ENGINEER: Dr. Asa Mena and Dr. Garces PRIMARY CARE PROVIDER: Sarah Pickard FINAL DIAGNOSES: 1. Hyperkalemia secondary to missing dialysis. 2. End stage renal disease secondary to polycystic kidney disease. 3. Polycystic liver disease. 4. Pseudomonas bacterial pneumonia. 5. Chronic obstructive pulmonary disease (COPD) with chronic hypoxia. 6. Diarrhea secondary to malabsorption. 7. Protein calorie malnutrition. 8. Hypertension. 9. Depression. 10. Hypothyroidism. 11. Secondary hyperparathyroidism. 12. Pulmonary artery hypertension. 13. Chronic diastolic congestive heart failure (CHF). HISTORY OF PRESENT ILLNESS: This is a 68-year-old female patient with underlying medical history of COPD requiring 2 liters of oxygen at night, history of smoking, history of diastolic congestive heart failure (CHF), pulmonary artery hypertension, end stage renal disease on dialysis Tuesday, Tuesday and Tuesday, as well as polycystic kidney disease, who presented to the hospital with increasing shortness of breath and cough productive of thick white sputum. The patient has been taking all of her medications and nebulizer treatments. The patient also reported worsening diarrhea resulting in missing dialysis for the past week. The patient also reported poor oral intake, diffuse body aches. In the emergency room, the patient was found to have hyperkalemia. Subsequently, the patient was emergently dialyzed. Nephrology was consulted. HOSPITAL COURSE: The patient was started on Zosyn. Sputum culture was sent. Culture was positive for pseudomonas. Subsequently, antibiotic was switched to Levaquin. Dialysis was continued. Oxygen supplementation was provided. Physical therapy (PT) has been ordered. The patient was started on Creon for possible malabsorption with improvement of diarrhea. Home medication was continued. Deep vein thrombosis (DVT) prophylaxis was provided. The patient is currently comfortable, passed physical therapy (PT), tolerating oral, and ready to be discharged tomorrow for further care as an outpatient. VITAL SIGNS: Temperature 98.2, pulse 67, respirations 16, blood pressure 142/83, pulse oximetry 99% on 2 liters nasal cannula. LABORATORY: WBC 5.2, hemoglobin and hematocrit 8.7/30.3, platelets 170. Chemistry: Sodium 137, potassium 4.7, chloride 101, bicarbonate 27, BUN 30. PHYSICAL EXAMINATION: GENERAL: The patient is frail, comfortable, in no acute distress. HEENT: Normocephalic, atraumatic. PULMONARY: Bilaterally clear. CARDIAC: Regular. S1, S2. ABDOMEN: Soft. Hepatomegaly, nontender. EXTREMITIES: No clubbing, cyanosis or edema. DISCHARGE MEDICATIONS: - Levaquin 500 mg by mouth every 48 hours for 3 more doses - Creon 24,000 units with meals - albuterol nebulizer every 4 hours as needed - ProAir every 4 hours as needed - Norvasc 10 mg by mouth daily - aspirin 81 mg by mouth four times a week - Symbicort 160/4.5 inhalation twice a day - calcium acetate 667 mg by mouth with meals - diclofenac topical three times a day as needed - Lexapro 20 mg by mouth at night - Ellipta inhalation daily - Bactroban four times a day as needed - Synthroid 137 mcg by mouth daily - lorazepam 1 mg by mouth three times a day as needed - losartan 100 mg by mouth daily - Velphoro 500 mg by mouth with meals - Renovite one tablet by mouth daily DISCHARGE INSTRUCTIONS: Please see primary care provider in 7 days. Please followup with nephrology for dialysis. Return to the hospital if symptoms worsen. Likely discharge on 12/26/2018 pending nephrology clearance. edited: 12/26/2018 0730 trace [place]
[2018-12-25 22:00] VITALS: BP 116/72
[2018-12-26] MEDS: LEVOTHYROXINE 137MCG TABLET (0.137MG) PO SCH (05:37)
[2018-12-26 06:00] VITALS: BP 145/89
[2018-12-26 06:30] LABS: HEMATOCRIT 29.1 % (36.0-47.0); HEMOGLOBIN 8.5 g/dl (12.0-15.5); MEAN CORPUSCULAR HEMOGLOBIN 25.4 pg (27.0-33.0); MEAN CORPUSCULAR HGB CONC 29.2 g/dl (32.0-36.5); MEAN CORPUSCULAR VOLUME 87.1 fl (80.0-96.0); PLATELET COUNT, AUTOMATED 185 10^3/uL (150-450); RED BLOOD COUNT 3.34 10^6/uL (4.00-5.40); WHITE BLOOD COUNT 4.5 10^3/uL (4.0-10.0)
[2018-12-26 06:50] LABS: ALBUMIN 2.5 GM/DL (3.2-5.2); CALCIUM LEVEL 7.5 MG/DL (8.8-10.2); CREATININE FOR GFR 2.81 MG/DL (0.55-1.30); GLOMERULAR FILTRATION RATE 17.7 (>39); MAGNESIUM LEVEL 1.7 MG/DL (1.8-2.4); PHOSPHORUS LEVEL 3.6 MG/DL (2.5-4.9); POTASSIUM SERUM 3.9 MEQ/L (3.5-5.1)
--- NOTE | 2018-12-26 07:46 | IPN ---
DATE: 12/25/2018 SUBJECTIVE: The patient was seen and examined at the bedside today morning during hemodialysis procedure. She is tolerating the hemodialysis procedure well. She denies any acute complaints at this time. OBJECTIVE: VITAL SIGNS: Temperature 98.2 degrees Fahrenheit. Blood pressure 142/83. Pulse 67. Respiratory rate 16. Saturating 99% on nasal cannula at 2 liters. INTAKE AND OUTPUT: Urine output recorded as 350 mL yesterday. Weight on the bed scale is not available. PHYSICAL EXAMINATION: GENERAL: Patient is awake, alert and oriented times three, weak and cachectic, laying in the bed, getting hemodialysis done. HEAD AND NECK EXAM: Bitemporal wasting. Mucous membranes are moist. Neck is supple. No jugular venous distention (JVD). CARDIOVASCULAR: S1 and S2. Regular rate. No edema of the bilateral lower extremities. RESPIRATORY: Decreased breath sounds at the bases. Otherwise no active rales or rhonchi. ABDOMEN: Soft. Bilateral large polycystic kidneys are palpable. She has a large polycystic liver as well. MUSCULOSKELETAL: No clubbing or cyanosis. Pulses are 2+. CLIENT APPLICATION SUPPORT SPECIALIST: No focal deficit. Power is 5/5 in all extremities. LAB REVIEW: CBC showed a WBC of 5.2, hemoglobin 8.7, and platelets 170. BMP showed sodium 137, potassium 4.7, chloride 101, bicarbonate 29, BUN 30, creatinine 4. CURRENT INPATIENT MEDICATIONS: Patient's medications were all reviewed by me. No change in the medications today as compared with yesterday. ASSESSMENT AND PLAN: 1. End stage renal disease on hemodialysis. Patient is being dialyzed today according to her Tuesday, Tuesday, and Tuesday schedule. Ultrafiltration goal will be 500 mL. 2. Pseudomonas aeruginosa pneumonia. The patient is on Levaquin. Symptomatically she is getting better. 3. Anemia secondary to end stage renal disease. The patient's hemoglobin is slowly improving. She was given a dose of Aranesp during dialysis. 4. Hypertension with polycystic kidneys and end stage renal disease. Continue current dose of amlodipine and losartan. DISPOSITION: Patient is stable enough to be discharged hopefully over the next 24 hours on oral antibiotics.
[2018-12-26] MEDS: CALCIUM ACETATE 667 MG GELCAP PO SCH ×2 (08:30→13:31)
[2018-12-26] MEDS: CREON-24 CAPSULE PO SCH ×2 (08:30→13:31)
[2018-12-26] MEDS: ASPIRIN 81 MG ENTERIC TAB PO SCH (08:30)
[2018-12-26] MEDS: amLODIPine 10 MG TAB PO SCH (08:33)
[2018-12-26 08:34] VITALS: BP 138/87
[2018-12-26] MEDS: LOSARTAN 50 MG TAB PO SCH (08:34)
[2018-12-26] MEDS: HEPARIN SOD (PORCINE) 5000 UNITS/ML VIAL SQ SCH ×2 (08:34→08:36)
[2018-12-26] MEDS: SYMBICORT 160/4.5MCG INHALER 6GM INH SCH (09:29)
--- NOTE | 2018-12-26 11:49 | IPNPDOC ---
Text Note Date of Service The patient was seen on 12/26/18. NOTE Pt feels well. Denies any complaints. No acute changes overnight. Hemodynamica lly stable. Will be d/c today with family. Please see d/c summary from 12/25/[address] Mcgee. VS,Saul, I+O VS, Saul, I+O Laboratory Tests 12/26/18 05:35 Red Blood Count 3.34 L, Mean Corpuscular Volume 87.1, Mean Corpuscular Hemoglobin 25.4 L, Mean Corpuscular Hemoglobin Concent 29.2 L, Red Cell Distribution Width 20.1 H, Anion Gap 8 Vital Signs Date Time Temp Pulse Resp B/P (MAP) Pulse Ox O2 Delivery O2 Flow Rate FiO2 12/26/18 08:34 138/87 12/26/18 08:33 87 12/26/18 06:00 98.4 18 94 2.0 12/25/18 08:00 Nasal Cannula I&O- Last 24 Hours up to 6 AM 12/26/18 06:00 Intake Total 570 ml Output Total 500 ml Balance 70 ml LALY FRANCO MD Dec 26, 2018 11:49
[2018-12-26] MEDS ORDERED: LANC30MI XX (16:15)
[2018-12-26] MEDS ORDERED: GLUC1TES2 XX (16:15)
[2018-12-26] MEDS ORDERED: BLOOKIT21 XX (16:15)
[2018-12-26] MEDS ORDERED: ALCOPAD17 TOP (16:15)
[2018-12-27 00:08] LABS: FATS NEUTRAL Normal (.); FATS TOTAL Normal (.)
--- NOTE | 2018-12-27 00:21 | IPN ---
DATE: 12/26/2018 SUBJECTIVE: The patient was seen and examined at the bedside today morning. The patient reports that she is feeling better today. She is afebrile, hemodynamically stable. She was dialyzed yesterday, 500 mL of fluid was removed. She reports that she is feeling stable enough to go home. OBJECTIVE: VITAL SIGNS: Temperature is 98.4 degrees Fahrenheit, blood pressure 138/87, pulse 87, respiratory rate of 17, saturating 99% on nasal cannula at 2 liters. INTAKE/OUTPUT: Fluid removal with dialysis was 500 mL yesterday. Weight on the bed scale is not available. PHYSICAL EXAMINATION: GENERAL: The patient is awake, alert, oriented times three, weak and cachectic, chronically malnourished, laying in bed, in no apparent distress. HEAD AND NECK EXAM: The patient is wearing nasal cannula. She has bitemporal wasting. Mucous membranes are moist. Neck is supple. There is no jugular venous distention (JVD). CARDIOVASCULAR: S1, S2, regular rate. No edema of the bilateral lower extremities. RESPIRATORY: Decreased breath sounds at the bases, otherwise no active rales or rhonchi. ABDOMEN: Abdomen is soft. She has palpable polycystic kidneys and liver. MUSCULOSKELETAL: No clubbing or cyanosis. Pulses are 2+. CENTRAL NERVOUS SYSTEM (INDUSTRIAL ILLUMINATING ENGINEER): No focal deficit. Power is 5/5 in all extremities. LAB REVIEW: CBC showed a WBC of 4.5, hemoglobin 8.5, platelets are 185. BMP showed sodium 138, potassium 3.9, chloride 100, bicarbonate 30, BUN 18, creatinine is 2.8, calcium 7.5, phosphorus 3.6, magnesium is 1.7. CURRENT INPATIENT MEDICATIONS: The patient's medications were all reviewed by me. There is no change in the medication today as compared with yesterday. ASSESSMENT AND PLAN: 1. End-stage renal disease, on hemodialysis. Patient's regular dialysis days are Tuesday, Tuesday, Tuesday. She was dialyzed yesterday according to her regular schedule. Next hemodialysis will be done as an outpatient. 2. Pseudomonas aeruginosa pneumonia. The patient is symptomatically getting better. She is on oral Levaquin. 3. Anemia secondary to end-stage renal disease. The patient's hemoglobin is still low. The rest of the anemia management will be done as an outpatient according to outpatient anemia protocol. 4. Hypertension with polycystic kidney disease and end-stage renal disease. Continue current dose of losartan and amlodipine. DISPOSITION: The patient is optimized from a nephrology standpoint to be discharged home today.
== END 2018-12-26 16:18 | disposition home health service (06) | DRG 177 ==
LOC: M ED 12:44 → EDBD 12:44 → M ED INP 17:36 → M ICU 20:14 → M MSPAV 12-22 15:10
PROVIDERS: ADMIT Internal Medicine; ATTEND Hospitalist
PROC: 5A1D70Z Performance of Urinary Filtration, Intermittent, Less than 6 Hours Per Day (ICD-10-PCS; principal; 2018-12-18)
DX: J15.1 Pneumonia due to Pseudomonas (principal); N18.6 End stage renal disease; I50.32 Chronic diastolic (congestive) heart failure; D62 Acute posthemorrhagic anemia; N25.81 Secondary hyperparathyroidism of renal origin; I13.2 Hypertensive heart and chronic kidney disease with heart failure and with stage 5 chronic kidney disease, or end stage renal disease; E46 Unspecified protein-calorie malnutrition; Q44.6 Cystic disease of liver; K90.9 Intestinal malabsorption, unspecified; E87.5 Hyperkalemia; E03.9 Hypothyroidism, unspecified; F32.9 Major depressive disorder, single episode, unspecified; J44.9 Chronic obstructive pulmonary disease, unspecified; I27.20 Pulmonary hypertension, unspecified; R19.7 Diarrhea, unspecified; Z79.899 Other long term (current) drug therapy; Z99.81 Dependence on supplemental oxygen; F17.210 Nicotine dependence, cigarettes, uncomplicated; Z88.8 Allergy status to other drugs, medicaments and biological substances; Z79.82 Long term (current) use of aspirin; D63.1 Anemia in chronic kidney disease; R62.7 Adult failure to thrive

== ENCOUNTER 2019-01-25 08:41 | Inpatient (IN) | payer MEDICARE, MEDICAID ==
[2019-01-25] VITALS (7 sets, daily range): BP systolic 127–179; BP diastolic 72–103; O2SAT 99
[~2019-01-25] VITALS: Ht 162.6 cm; Wt 38.0 kg
[~2019-01-25 08:41] MED LIST changes: +ALCOPAD17 TOP; +BLOOKIT21 XX; +CREO24CA PO; +GLUC1TES2 XX; +LANC30MI XX; +VELP5CHW PO
[2019-01-25] MEDS ORDERED: methylPREDNISolone INJ 125 MG/2 ML VIAL (J2930) IV ONE (09:00)
[2019-01-25] MEDS ORDERED: IPRATROPIUM 0.5MG/ALBUTEROL 2.5MG INH SOL UD 3ML (DUONEB)(J7620) NEB PRN (09:00)
[2019-01-25 09:16] LABS: ABG BASE EXCESS -2.3 (-2.0-2.0); ABG HCO3 28.5 MEQ/L (22.0-26.0); ABG O2 SATURATION 99.7 % (95.0-99.0); ABG PARTIAL PRESSURE O2 262.9 mmHg (75.0-100.0); ABG STANDARD HCO3 22.6 MEQ/L (22.0-26.0)
[2019-01-25 09:17] LABS: ABG pH (ARTERIAL) 7.161 UNITS (7.350-7.450)
[2019-01-25 09:18] LABS: ABG PARTIAL PRESSURE CO2 81.7 mmHg (35.0-45.0)
[2019-01-25 09:29] LABS: BASO # 0.1 10^3/uL (0.0-0.2); BASO % 0.9 % (0.0-1.0); EOS # 0.4 10^3/uL (0.0-0.50); EOS % 5.1 % (0.0-3.0); HEMATOCRIT 46.1 % (36.0-47.0); LYMPH # 0.9 10^3/uL (1.5-4.5); LYMPH % 11.5 % (24.0-44.0); MEAN CORPUSCULAR HEMOGLOBIN 27.7 pg (27.0-33.0); MEAN CORPUSCULAR HGB CONC 28.2 g/dl (32.0-36.5); MEAN CORPUSCULAR VOLUME 98.1 fl (80.0-96.0); MONO # 0.5 10^3/uL (0.0-0.8); MONO % 5.7 % (0.0-5.0); NEUTROPHILS # 6.2 10^3/uL (1.8-7.7); NEUTROPHILS % 76.4 % (36.0-66.0); PLATELET COUNT, AUTOMATED 157 10^3/uL (150-450); WHITE BLOOD COUNT 8.1 10^3/uL (4.0-10.0)
[2019-01-25 09:47] LABS: INR 1.13; PROTHROMBIN TIME 14.7 SECONDS (12.1-14.4)
[2019-01-25 09:50] LABS: D-DIMER QUANT 1397.69 ng/ml (<500)
--- NOTE | 2019-01-25 09:56 | REP ---
CHEST, PORTABLE: Single frontal view of the chest is performed. There is no acute infiltrate. Heart is not enlarged. There is calcification of the thoracic aorta. The mediastinal silhouette is unchanged. IMPRESSION: No acute infiltrate. Electronically Signed by Cristopher Montoya MD 01/25/2019 05:00 P
[2019-01-25 09:58] LABS: INFLUENZA A AMPLIFICATION NEGATIVE (NEGATIVE); INFLUENZA B AMPLIFICATION NEGATIVE (NEGATIVE)
[2019-01-25 10:36] LABS: ALBUMIN 3.6 GM/DL (3.2-5.2); BILIRUBIN,DIRECT 0.2 MG/DL (0.0-0.2); BILIRUBIN,TOTAL 0.5 MG/DL (0.2-1.0); CALCIUM LEVEL 7.7 MG/DL (8.8-10.2); CREATININE FOR GFR 3.94 MG/DL (0.55-1.30); MB/CK RELATIVE INDEX 13.33 (< OR =4); POTASSIUM SERUM 5.2 MEQ/L (3.5-5.1); THYROID STIMULATING HORMONE 1.99 uIU/ML (0.358-3.740); TOTAL PROTEIN 6.1 GM/DL (6.4-8.2); TROPONIN I 0.03 NG/ML (< 0.10)
[2019-01-25 11:28] LABS: ABG BASE EXCESS -4.8 (-2.0-2.0); ABG HCO3 23.6 MEQ/L (22.0-26.0); ABG O2 SATURATION 98.8 % (95.0-99.0); ABG PARTIAL PRESSURE CO2 57.8 mmHg (35.0-45.0); ABG PARTIAL PRESSURE O2 137.3 mmHg (75.0-100.0); ABG STANDARD HCO3 20.6 MEQ/L (22.0-26.0); ABG TOTAL CO2 25.3 MEQ/L (23.0-31.0)
[2019-01-25 11:31] LABS: ABG pH (ARTERIAL) 7.235 UNITS (7.350-7.450)
[2019-01-25] MEDS ORDERED: ONDANSETRON 4MG/2ML VIAL (J2405) IV PRN (12:45)
[2019-01-25] MEDS ORDERED: ALBUTEROL SULFATE 2.5 MG/0.5 ML INH NEB SOLN INH PRN (12:45)
[2019-01-25] MEDS ORDERED: NS 1,000 ML IV SCH (13:00)
[2019-01-25] MEDS ORDERED: DEXTROSE 50% 50 ML SYRINGE IV PRN (15:00)
[2019-01-25] MEDS ORDERED: GLUCAGON FOR INJ 1 MG VIAL (J1610) SC PRN (15:00)
[2019-01-25] MEDS ORDERED: GLUCOSE 4 GM CHEW TABLET PO PRN (15:00)
[2019-01-25] MEDS: PANTOPRAZOLE 40MG INJ (PROTONIX) (C9113) IV SCH (15:25)
[2019-01-25] MEDS: methylPREDNISolone INJ 125 MG/2 ML VIAL (J2930) IV SCH ×2 (15:25→21:59)
[2019-01-25] MEDS: amLODIPine 10 MG TAB PO SCH (15:26)
[2019-01-25] MEDS: LOSARTAN 50 MG TAB PO SCH (15:27)
[2019-01-25] MEDS: ASPIRIN 81 MG ENTERIC TAB PO SCH (15:28)
[2019-01-25] MEDS: IPRATROPIUM 0.5MG/ALBUTEROL 2.5MG INH SOL UD 3ML (DUONEB)(J7620) NEB SCH ×3 (16:00→23:06)
--- NOTE | 2019-01-25 16:25 | HPEPDOC ---
General Date of Admission Jan 25, 2019 at 12:31 Chief Complaint The patient is a 68-year-old female admitted with a reason for visit of Acute An d Chronic Respiratory Failure W Hypercapni. History of Present Illness 68-year-old female with past medical history of advanced COPD on home oxygen, active tobacco use, end-stage renal disease on hemodialysis, chronic diastolic congestive heart failure, pulmonary hypertension, hypothyroidism, and failure to thrive presents to the ER with a chief complaint of worsening shortness of breath over the last several days. She denied any complaints of fevers, chills, chest pain, palpitations, abdominal pain, or any nausea/vomiting/diarrhea. She states that serial inhaler and nebulizer therapy did not help her symptoms and thus she presented to the hospital for further evaluation and management. In the ER, the patient was noted to be in hypercapnic respiratory failure. She was started on BiPAP therapy. The patient will be admitted to the hospitalist service, and a consult has been placed to pulmonary for management of BiPAP. Home Medications Scheduled (Incruse Ellipta) 62.5 Mcg/Inh Inh, 1 PUFF INH DAILY, (Reported) (Arielle-Roby) 1 Tab Tab, 1 TAB PO DAILY, (Reported) Amlodipine Besylate (Amlodipine Besylate) 10 Mg Tab, 10 MG PO DAILY, (Reported) Aspirin (Aspirin EC) 81 Mg Tabec, 81 MG PO 4XWK, (Reported) TAKES ON NON DIALYSIS DAYS, , , SAT, SUN Budesonide/Formoterol (Symbicort 160-4.5 Mcg/Act) 60 Puff/Inhaler Aers, 2 PUFF INH BID, (Reported) Escitalopram Oxalate (Lexapro) 20 Mg Tab, 20 MG PO QHS, (Reported) Levothyroxine Sodium (Synthroid) 137 Mcg Tab, 137 MCG PO DAILY, (Reported) Losartan Potassium (Losartan Potassium) 100 Mg Tab, 100 MG PO DAILY, (Reported) Polynuclear Iron(III)-Oxyhydro (Velphoro) 500 Mg Chw, 500 MG PO WM, (Reported) Scheduled PRN Albuterol Sulfate (Albuterol Sulfate) 2.5 Mg/3 Ml Nebu, 2.5 MG INH Q4H PRN for SHORTNESS OF BREATH, (Reported) Albuterol Sulfate (Proair Hfa) 108 Mcg/Act Aer, 2 PUFFS INH Q4H PRN for SHORTNESS OF BREATH, (Reported) Ipratropium Paradox (Atrovent Hfa) 17 Mcg/Act Aer, 2 PUFFS INH QID PRN for SHORTNESS OF BREATH, (Reported) Lorazepam (Lorazepam) 1 Mg Tab, 1 MG PO TID PRN for ANXIETY, (Reported) Allergies Coded Allergies: Lisinopril (Verified Allergy, Severe, tongue swelling, 09/21/18) Codeine (Unverified Adverse Reaction, Unknown, nausea, upset stomach, 01/25/19) Past Medical History Medical History As noted above Social History * Smoker: current smoker (Smokes 3-4 cigarette's per day) Alcohol: Denies Drugs: denies Review of Systems Other systems 10 point review of systems negative unless otherwise specified. Physical Examination General Exam: Positive: No Acute Distress, Other (Patient noted to be somnolent but arousable on BiPAP) ENT Exam: Positive: Atraumatic, Other ENT (bitemporal wasting noted) Chest Exam: Positive: Diminished Heart Exam: Positive: Rate Normal, Normal S1, Normal S2 Abdomen Exam: Positive: Soft; Negative: Tenderness Extremity Exam: Negative: Tenderness, Swelling Vital Signs Vital Signs Date Time Temp Pulse Resp B/P (MAP) Pulse Ox O2 Delivery O2 Flow Rate FiO2 01/25/19 15:26 74 164/80 01/25/19 14:00 30 01/25/19 13:45 100 01/25/19 13:41 99.3 20 NIPPV (BIPAP/CPAP) Laboratory Data Labs 24H Laboratory Tests 2 01/25/19 08:50: Anion Gap 11, Glomerular Filtration Rate 12.0L, Calcium Level 7.7L, Aspartate Amino Transf (AST/SGOT) 24, Alanine Aminotransferase (ALT/SGPT) 14, Alkaline Phosphatase 97, Total Bilirubin 0.5, Direct Bilirubin 0.2, Total Creatine Kinase 54, Creatine Kinase MB 7.0H, Creatine Kinase MB Relative Index 13.33H, Troponin I 0.03, QE-Lis-H-Type Natriuretic Peptide 99109J, Total Protein 6.1L, Albumin 3.6, Albumin/Globulin Ratio 1.44, Thyroid Stimulating Hormone (TSH) 1.990 01/25/19 08:58: Immature Granulocyte % (Auto) 0.4, White Blood Count 8.1, Red Blood Count 4.70, Hemoglobin 13.0, Hematocrit 46.1, Mean Corpuscular Volume 98.1H, Mean Corpuscular Hemoglobin 27.7, Mean Corpuscular Hemoglobin Concent 28.2L, Red Cell Distribution Width 23.9H, Platelet Count 157, Neutrophils (%) (Auto) 76.4H, Lymphocytes (%) (Auto) 11.5L, Monocytes (%) (Auto) 5.7H, Eosinophils (%) (Auto) 5.1H, Basophils (%) (Auto) 0.9, Neutrophils # (Auto) 6.2, Lymphocytes # (Auto) 0.9L, Monocytes # (Auto) 0.5, Eosinophils # (Auto) 0.4, Basophils # (Auto) 0.1, Nucleated Red Blood Cells % (auto) 0.0, Prothrombin Time 14.7H, Prothromb Time International Ratio 1.13, D-Dimer, Quantitative 1397.69H, Blood Gas Bicarbonate Standard 22.6, Arterial Blood pH 7.161*L, Arterial Blood Partial Pressure CO2 81.7*H, Arterial Blood Partial Pressure O2 262.9H, Arterial Blood Total CO2 31.0, Arterial Blood HCO3 28.5H, Arterial Blood Base Excess -2.3L, Arterial Blood Oxygen Saturation 99.7H, Lactic Acid Level 0.5, Influenza Type A (RT-PCR) NEGATIVE, Influenza Type B (RT-PCR) NEGATIVE 01/25/19 10:46: Blood Gas Bicarbonate Standard 20.6L, Arterial Blood pH 7.235*L, Arterial Blood Partial Pressure CO2 57.8H, Arterial Blood Partial Pressure O2 137.3H, Arterial Blood Total CO2 25.3, Arterial Blood HCO3 23.6, Arterial Blood Base Excess - 4.8L, Arterial Blood Oxygen Saturation 98.8 01/25/19 14:29: Bedside Glucose (Misc Panel) 68L CBC/BMP Laboratory Tests 01/25/19 08:50 01/25/19 08:58 Red Blood Count 4.70, Mean Corpuscular Volume 98.1 H, Mean Corpuscular Hemoglobin 27.7, Mean Corpuscular Hemoglobin Concent 28.2 L, Red Cell Distribution Width 23.9 H, Neutrophils (%) (Auto) 76.4 H, Lymphocytes (%) (Auto) 11.5 L, Monocytes (%) (Auto) 5.7 H, Eosinophils (%) (Auto) 5.1 H, Basophils (%) (Auto) 0.9, Neutrophils # (Auto) 6.2, Lymphocytes # (Auto) 0.9 L, Monocytes # (Auto) 0.5, Eosinophils # (Auto) 0.4, Basophils # (Auto) 0.1 Microbiology Microbiology 01/25/19 Blood Culture, Received Pending 01/25/19 Blood Culture, Received Pending 01/25/19 Respiratory Virus Panel (PCR) ([facility]) - Final, Complete Plan / VTE VTE Prophylaxis Ordered?: Yes Plan Plan Acute on Chronic Hypercapnic Respiratory Failure 2/2 COPD Exacerbation CXR and Respiratory panel negative Continue IV solumedrol, inhaler therapy, and serial nebulizer therapy We will admit the patient to the intensive care unit Pulmonary consulted for management of BiPAP ESRD on HD Nephro consulted for management of dialysis HTN Cont Norvasc, Losartan Tobacco Abuse Counseled at length about cessation Anxiety/Depression Lexapro Hypothyroidism Cont Levothyroxine GERD Cont Protonix DVT Prophylaxis Heparin KARLIE MENDEZ MD Jan 25, 2019 16:25
--- NOTE | 2019-01-25 16:27 | CR ---
DATE OF CONSULTATION: 01/25/2019 HISTORY OF PRESENT ILLNESS: Ms. Karina Blackmon is a pleasant 68-year-old female who was admitted by Dr. Donahue to the hospitalist service for acute on chronic hypercapnic respiratory failure. Information from the history comes from the patient and family. According to the patient, she had started feeling poorly about three days ago with increased shortness of breath. She believes that she has had somewhat of an increased cough, but has not been producing any significant sputum. She did deny fevers or chills. The patient does have a history of chronic obstructive pulmonary disease (COPD) for which she takes Symbicort and Incruse. She is supplemental oxygen dependent. With her symptoms worsening, she came in to the emergency department today and was found to be in hypercapnic respiratory failure. She is placed on bilevel positive airway pressure (BiPAP) in the emergency room (ER) and there was some improvement in her blood gas after the initiation of BiPAP. She was admitted to the intensive care unit (ICU) and a medical team asked pulmonary team for assistance in managing the patient's BiPAP. Patient is a longtime smoker. She states she smokes about 3-4 cigarettes a day and has been smoking for many years. Patient does note that she was hospitalized in late November-early December with pneumonia. She states that since getting out of the hospital, she has had no further respiratory infections or need for antibiotic treatment for respiratory infections. REVIEW OF SYSTEMS: Patient denies fevers, chills, night sweats. HEENT: Patient denies sore throat, headaches. CARDIOVASCULAR: Patient denies chest pain or palpitations. PULMONARY: See above. Patient notes shortness of breath. Denies hemoptysis. ABDOMINAL: Patient has noted a little diarrhea, but otherwise denies abdominal pain, nausea or vomiting. Denies any hematemesis. GENITOURINARY (): Patient denies urinary symptoms. ENDOCRINE: Patient has been monitoring her sugars at home. She denies having diabetes, but states her sugars have been up and down. She does have hypothyroidism. MUSCULOSKELETAL: Patient notes generalized weakness and lethargy especially on days where she undergoes dialysis. NEPHROLOGY: Patient has a history of end-stage renal disease and is hemodialysis dependent. PAST MEDICAL HISTORY: 1. Chronic obstructive pulmonary disease (COPD), supplemental oxygen dependent. 2. Tobacco use. 3. Diastolic congestive heart failure. 4. Pulmonary hypertension. 5. End-stage renal disease on hemodialysis. 6. Polycystic kidney disease and liver disease. 7. Hypothyroidism. 8. Anemia. PAST SURGICAL HISTORY: 1. Atrioventricular (AV) fistula in left upper extremity. 2. Status post right hip arthroplasty. FAMILY MEDICAL HISTORY: Noncontributory. SOCIAL HISTORY: Patient is a smoker for many years and patient denies alcohol use. Patient denies illicit drug use. She lives with her son and [id number]. ALLERGIES: LISINOPRIL and CODEINE. MEDICATIONS: - albuterol nebulizers as needed - amlodipine 10 mg daily - aspirin 81 mg daily - Symbicort 2 puffs twice a day - calcium acetate 667 mg by mouth daily - diclofenac gel topically three times a day as needed - Lexapro 20 mg at bedtime - Incruse 1 puff daily - ipratropium 2 puffs four times a day as needed - Synthroid 137 mcg daily - lorazepam 1 mg three times a day as needed anxiety - losartan 100 mg by mouth daily - polynuclear iron 500 mg by mouth daily - Arielle-Roby 1 tablet by mouth daily - ProAir 2 puffs every 4 hours as needed shortness of breath PHYSICAL EXAMINATION VITAL SIGNS: Temperature 99.3, heart rate 82, blood pressure 179/103, oxygen saturation 92%, respiratory rate 20. Patient is on BiPAP 12/5 with a backup of 10 and FiO2 of 30 to maintain oxygen saturation between 88-92%. GENERAL: Patient is lethargic and weak. She is very cachectic and chronically ill-appearing. She is alert and oriented and knows that she is in the hospital. HEENT: Head is normocephalic, atraumatic. She has dry mucous membranes. She is edentulous. Mallampati III. NECK: No cervical lymphadenopathy. No jugular venous distention (JVD). Trachea is midline. CHEST: Expiratory wheezing throughout. No accessory muscle use. CARDIAC: Regular rate and rhythm. S1, S2. No murmurs. ABDOMEN: Positive bowel sounds. Soft, nontender. No rebound or guarding. No masses. No hepatosplenomegaly. EXTREMITIES: No edema. SKIN: Numerous hematomas of the upper and lower extremities. LABORATORY DATA: ABG done at 08:58 today with pH of 7.161, pCO2 of 81.7, pO2 of 262.9, HCO3 of 28.5. ABG done at 10:46 with pH of 7.235, pCO2 of 57.8, pO2 of 137.3, HCO3 of 23.6. WBC 8.1, hemoglobin 13.0, hematocrit 46.1, platelets 157. Sodium 140, potassium 5.2, chloride 105, carbon dioxide 24, BUN 30, creatinine 3.94, glucose 74, lactic acid 0.5, calcium 7.7. Total bilirubin 0.5, direct bilirubin 0.2, AST 24, ALT 14, alkaline phosphatase 97. CK 54, CK-MB 7.0, CK-MB relative index 13.33. Troponin-I 0.03. BNP 78,599. Total protein 6.1, albumin 3.6. TSH 1.990. PT 14.7, INR 1.13, D-dimer 1397.69, Respiratory virus panel was negative. Blood cultures are pending. Chest x-ray showed some right hilar fullness, which is likely secondary to vasculature. Otherwise, no acute infiltrates are appreciated. ASSESSMENT/PLAN Acute on chronic hypercapnic respiratory failure secondary to chronic obstructive pulmonary disease (COPD) exacerbation. Pulmonary team is consulted to manage BiPAP. Will continue with current BiPAP settings of 12/5 with a backup of 10. Agree with patient getting intravenous (IV) steroids. She is getting nebulizers. As an outpatient she is on Incruse. At some point, would consider adding an anticholinergic when the patient is off the scheduled DuoNebs. We will continue to follow along and manage this patient's BiPAP. She does not appear to have an acute infectious process as she is afebrile with a normal white count. We will continue to monitor. BRANDT
[2019-01-25 17:28] LABS: ABG BASE EXCESS -1.9 (-2.0-2.0); ABG O2 SATURATION 98.4 % (95.0-99.0); ABG PARTIAL PRESSURE CO2 51.7 mmHg (35.0-45.0); ABG PARTIAL PRESSURE O2 111.3 mmHg (75.0-100.0); ABG STANDARD HCO3 22.9 MEQ/L (22.0-26.0); ABG TOTAL CO2 26.6 MEQ/L (23.0-31.0); ABG pH (ARTERIAL) 7.303 UNITS (7.350-7.450)
[2019-01-25] MEDS: SYMBICORT 160/4.5MCG INHALER 6GM INH SCH (19:51)
[2019-01-25] MEDS: ESCITALOPRAM OXALATE 10 MG TAB (LEXAPRO) PO SCH (20:12)
[2019-01-25] MEDS: HEPARIN SOD (PORCINE) 5000 UNITS/ML VIAL SQ SCH (20:12)
[2019-01-26] VITALS (7 sets, daily range): BP systolic 128–153; BP diastolic 70–81; O2SAT 97
[2019-01-26] MEDS: IPRATROPIUM 0.5MG/ALBUTEROL 2.5MG INH SOL UD 3ML (DUONEB)(J7620) NEB SCH ×5 (03:29→20:00)
[2019-01-26] MEDS: methylPREDNISolone INJ 125 MG/2 ML VIAL (J2930) IV SCH ×2 (04:33→09:20)
[2019-01-26 05:16] LABS: HEMATOCRIT 42.6 % (36.0-47.0); HEMOGLOBIN 12.3 g/dl (12.0-15.5); MEAN CORPUSCULAR HEMOGLOBIN 27.5 pg (27.0-33.0); MEAN CORPUSCULAR HGB CONC 28.9 g/dl (32.0-36.5); MEAN CORPUSCULAR VOLUME 95.3 fl (80.0-96.0); PLATELET COUNT, AUTOMATED 106 10^3/uL (150-450); RED BLOOD COUNT 4.47 10^6/uL (4.00-5.40); WHITE BLOOD COUNT 2.1 10^3/uL (4.0-10.0)
[2019-01-26 05:34] LABS: ALBUMIN 3.4 GM/DL (3.2-5.2); BILIRUBIN,TOTAL 0.6 MG/DL (0.2-1.0); CALCIUM LEVEL 7.5 MG/DL (8.8-10.2); CREATININE FOR GFR 4.49 MG/DL (0.55-1.30); GLOMERULAR FILTRATION RATE 10.3 (>39); POTASSIUM SERUM 6.4 MEQ/L (3.5-5.1); TOTAL PROTEIN 5.5 GM/DL (6.4-8.2)
[2019-01-26] MEDS: LEVOTHYROXINE 137MCG TABLET (0.137MG) PO SCH (06:04)
--- NOTE | 2019-01-26 06:47 | ECGEPIP ---
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
[2019-01-26 07:22] LABS: ABG BASE EXCESS -4.4 (-2.0-2.0); ABG HCO3 19.5 MEQ/L (22.0-26.0); ABG O2 SATURATION 94.6 % (95.0-99.0); ABG PARTIAL PRESSURE CO2 32.3 mmHg (35.0-45.0); ABG PARTIAL PRESSURE O2 71.1 mmHg (75.0-100.0); ABG STANDARD HCO3 20.8 MEQ/L (22.0-26.0); ABG TOTAL CO2 20.5 MEQ/L (23.0-31.0); ABG pH (ARTERIAL) 7.399 UNITS (7.350-7.450)
[2019-01-26] MEDS: SYMBICORT 160/4.5MCG INHALER 6GM INH SCH ×2 (07:22→20:10)
[2019-01-26] MEDS: HEPARIN SOD (PORCINE) 5000 UNITS/ML VIAL SQ SCH ×2 (09:00→20:11)
[2019-01-26] MEDS: LOSARTAN 50 MG TAB PO SCH (09:20)
[2019-01-26] MEDS: PANTOPRAZOLE 40MG INJ (PROTONIX) (C9113) IV SCH (09:20)
[2019-01-26] MEDS: amLODIPine 10 MG TAB PO SCH (09:20)
--- NOTE | 2019-01-26 14:28 | CCN ---
DATE: 01/26/2019 The patient was seen and examined during rounds this morning. Overnight, she was on BiPAP, however, around 4:00 a.m., the patient refused to continue with BiPAP any further and it was removed at that time. This morning, she is very awake and alert, much more responsive than she was yesterday on admission. She reports her breathing has much improved. She denies any chest pains. She has some cough, but has not been producing much mucus. She denies any fevers or chills. She has no chest pains currently. The patient is complaining of feeling very hungry and wanting to eat breakfast. PHYSICAL EXAMINATION: Temperature 98.1, pulse 84, respirations 22, blood pressure 153/79, oxygen saturation 92% on room air. General: The patient is a very cachectic and chronically ill appearing female. She is awake and alert and appropriate. HEENT: She is normocephalic, atraumatic. She has some dry mucous membranes. She has dentures in place. Neck: No cervical adenopathy palpated. No jugular venous distention (JVD). Trachea is midline. Cardiac: Distant heart sounds. Regular rate and rhythm. S1 and S2. No murmurs auscultated. Chest: Diminished breath sounds bilaterally with some faint expiratory wheezing. Abdomen is thin. It is soft, nontender. Extremities: There is no lower extremity edema noted. She does have ecchymosis in her upper and lower extremities. LABS: WBC 2.1, hemoglobin 12.3, platelets 106. Chemistry: Sodium 140, potassium 6.4, chloride 106, bicarbonate 19, BUN 43, creatinine 4.49, glucose 89. ABG this morning with pH 7.399, pCO2 32.3, pO2 of 71.1 - this was off of BiPAP. Initial cardiac enzymes were negative. BNP on admission was 78,599. Her respiratory virus panel was negative. Flu was negative. ASSESSMENT AND PLAN: The patient is a 68-year-old female with the past medical history of chronic obstructive pulmonary disease (COPD) with chronic hypoxemic respiratory failure requiring nasal cannula oxygen supplementation, history of end stage renal disease (ESRD) secondary to polycystic kidney and liver disease on hemodialysis, history of diastolic congestive heart failure (CHF) and pulmonary hypertension, and hypothyroidism who presented with altered mental status and worsening shortness of breath. The patient appeared to have acute on chronic hypercarbic respiratory failure, likely secondary to a COPD exacerbation. Her chest x-rays did not show any new focal opacities or infiltrates, no effusions. She was also afebrile. She did not have any leukocytosis initially. Her influenza and respiratory syncytial virus (RSV) panel were also negative. The patient was placed on BiPAP with improvement in her ABG and in her mental status. She was also started on Solu-Medrol and DuoNebs for her COPD exacerbation with improvement as well. This morning, the patient refused to keep her BiPAP on any further and her ABG this morning off of BiPAP does not appear to have any hypercarbia at this time. Therefore, would discontinue BiPAP and just repeat an ABG this evening to monitor. Continue with Solu-Medrol 60 mg every 6 for now and can likely taper to 40 every 8 tomorrow. Continue with Symbicort and DuoNebs around the clock. Would need to restart her Incruse once she is off of the standing DuoNebs. Follow up cultures, continue to monitor off of antibiotics for now. DO NOT RESUSCITATE/DO NOT INTUBATE (DNR/DNI). MTDD
--- NOTE | 2019-01-26 14:54 | IPNPDOC ---
Subjective Date Seen The patient was seen on 01/26/19. Subjective Chief Complaint/HPI Patient seen and examined at the bedside. Reports that she is feeling much better today. She has been weaned off of BiPAP. Objective Physical Examination General Exam: Positive: Alert, Cooperative, No Acute Distress ENT Exam: Positive: Atraumatic, Mucous membr. moist/pink, Other ENT (bitemporal wasting noted) Chest Exam: Positive: Diminished Heart Exam: Positive: Rate Normal, Normal S1, Normal S2 Abdomen Exam: Positive: Soft; Negative: Tenderness Extremity Exam: Negative: Tenderness, Swelling Psych Exam: Positive: Oriented x 3 Assessment /Plan Plan/VTE VTE Prophylaxis Ordered?: Yes Plan Acute on Chronic Hypercapnic Respiratory Failure 2/2 COPD Exacerbation CXR and Respiratory panel negative Continue IV supplemental, inhaler therapy, and serial nebulizer therapy Patient has been weaned off of BiPAP this morning Pulmonary on board--appreciate input PT ordered for functional optimization ESRD on HD Nephro consulted for management of dialysis HTN Cont Norvasc, Losartan Tobacco Abuse Counseled at length about cessation Anxiety/Depression Lexapro Hypothyroidism Cont Levothyroxine GERD Cont Protonix DVT Prophylaxis Heparin SC Code Status: DNR/DNI VS, I&O, 24H, [facility] Vital Signs/I&O Vital Signs Date Time Temp Pulse Resp B/P (MAP) Pulse Ox O2 Delivery O2 Flow Rate FiO2 01/26/19 09:20 152/81 01/26/19 08:00 99.3 72 24 96 01/26/19 04:00 30 01/26/19 03:29 BIPAP/CPAP I&O- Last 24 Hours up to 6 AM 01/26/19 05:59 Intake Total 750 ml Output Total 0 ml Balance 750 ml Laboratory Data 24H LABS Laboratory Tests 2 01/25/19 14:29: Bedside Glucose (Misc Panel) 68L 01/25/19 16:58: Blood Gas Bicarbonate Standard 22.9, Arterial Blood pH 7.303L, Arterial Blood Partial Pressure CO2 51.7H, Arterial Blood Partial Pressure O2 111.3H, Arterial Blood Total CO2 26.6, Arterial Blood HCO3 25.0, Arterial Blood Base Excess -1.9, Arterial Blood Oxygen Saturation 98.4 01/25/19 17:57: Bedside Glucose (Misc Panel) 76L 01/26/19 00:06: Bedside Glucose (Misc Panel) 96 01/26/19 04:45: Anion Gap 15, Glomerular Filtration Rate 10.3L, Blood Urea Nitrogen 43H, Creatinine 4.49H, Sodium Level 140, Potassium Level 6.4*H, Chloride Level 106, Carbon Dioxide Level 19L, Calcium Level 7.5L, Aspartate Amino Transf (AST/SGOT) 17, Alanine Aminotransferase (ALT/SGPT) 12, Alkaline Phosphatase 81, Total Bilirubin 0.6, Total Protein 5.5L, Albumin 3.4, Albumin/Globulin Ratio 1.62 01/26/19 05:05: Nucleated Red Blood Cells % (auto) 0.0 01/26/19 07:16: Blood Gas Bicarbonate Standard 20.8L, Arterial Blood pH 7.399, Arterial Blood Partial Pressure CO2 32.3L, Arterial Blood Partial Pressure O2 71.1L, Arterial Blood Total CO2 20.5L, Arterial Blood HCO3 19.5L, Arterial Blood Base Excess - 4.4L, Arterial Blood Oxygen Saturation 94.6L CBC/BMP Laboratory Tests 01/26/19 04:45 Calcium Level 7.5 L, Aspartate Amino Transf (AST/SGOT) 17, Alanine Aminotransferase (ALT/SGPT) 12, Alkaline Phosphatase 81, Total Bilirubin 0.6, Total Protein 5.5 L, Albumin 3.4 01/26/19 05:05 Red Blood Count 4.47, Mean Corpuscular Volume 95.3, Mean Corpuscular Hemoglobin 27.5, Mean Corpuscular Hemoglobin Concent 28.9 L, Red Cell Distribution Width 23.5 H Microbiology Microbiology 01/25/19 Blood Culture - Preliminary, Resulted No growth after 24 hours . All specim... 01/25/19 Blood Culture - Preliminary, Resulted No growth after 24 hours . All specim... 01/25/19 Respiratory Virus Panel (PCR) ([facility]) - Final, Complete KARLIE ENRIQUEZ MD Jan 26, 2019 14:54
[2019-01-26] MEDS ORDERED: methylPREDNISolone INJ 125 MG/2 ML VIAL (J2930) IV SCH (18:00)
[2019-01-26 20:18] LABS: ABG HCO3 21.9 MEQ/L (22.0-26.0); ABG O2 SATURATION 99.5 % (95.0-99.0); ABG PARTIAL PRESSURE CO2 30.8 mmHg (35.0-45.0); ABG PARTIAL PRESSURE O2 165.7 mmHg (75.0-100.0); ABG STANDARD HCO3 23.7 MEQ/L (22.0-26.0); ABG TOTAL CO2 22.8 MEQ/L (23.0-31.0); ABG pH (ARTERIAL) 7.469 UNITS (7.350-7.450)
[2019-01-26] MEDS: ESCITALOPRAM OXALATE 10 MG TAB (LEXAPRO) PO SCH (20:35)
[2019-01-27] VITALS (7 sets, daily range): BP systolic 110–152; BP diastolic 42–83
[2019-01-27] MEDS: IPRATROPIUM 0.5MG/ALBUTEROL 2.5MG INH SOL UD 3ML (DUONEB)(J7620) NEB SCH ×6 (03:44→20:00)
[2019-01-27 05:00] LABS: HEMATOCRIT 38.5 % (36.0-47.0); HEMOGLOBIN 11.6 g/dl (12.0-15.5); MEAN CORPUSCULAR HEMOGLOBIN 27.2 pg (27.0-33.0); MEAN CORPUSCULAR HGB CONC 30.1 g/dl (32.0-36.5); MEAN CORPUSCULAR VOLUME 90.2 fl (80.0-96.0); PLATELET COUNT, AUTOMATED 128 10^3/uL (150-450); RED BLOOD COUNT 4.27 10^6/uL (4.00-5.40); WHITE BLOOD COUNT 7.3 10^3/uL (4.0-10.0)
[2019-01-27 05:24] LABS: ALBUMIN 2.6 GM/DL (3.2-5.2); BILIRUBIN,TOTAL 0.6 MG/DL (0.2-1.0); CALCIUM LEVEL 7.2 MG/DL (8.8-10.2); CREATININE FOR GFR 3.17 MG/DL (0.55-1.30); GLOMERULAR FILTRATION RATE 15.4 (>39); POTASSIUM SERUM 4.1 MEQ/L (3.5-5.1); TOTAL PROTEIN 5.4 GM/DL (6.4-8.2)
[2019-01-27] MEDS: LEVOTHYROXINE 137MCG TABLET (0.137MG) PO SCH (06:55)
[2019-01-27] MEDS: SYMBICORT 160/4.5MCG INHALER 6GM INH SCH ×2 (07:29→20:33)
[2019-01-27] MEDS: ASPIRIN 81 MG ENTERIC TAB PO SCH (08:58)
[2019-01-27] MEDS: LOSARTAN 50 MG TAB PO SCH (08:58)
[2019-01-27] MEDS: PANTOPRAZOLE 40MG TAB (PROTONIX) PO SCH (08:58)
[2019-01-27] MEDS: amLODIPine 10 MG TAB PO SCH (08:59)
[2019-01-27] MEDS: predniSONE 20 MG TAB PO SCH (08:59)
[2019-01-27] MEDS: HEPARIN SOD (PORCINE) 5000 UNITS/ML VIAL SQ SCH ×2 (09:00→20:37)
[2019-01-27] MEDS: ACETAMINOPHEN TAB 650MG DOSE (2X325MG) PO PRN (11:30)
[2019-01-27] MEDS ORDERED: MOXIFLOXACIN 400 MG TAB PO ONE (15:00)
--- NOTE | 2019-01-27 15:54 | IPNPDOC ---
Subjective Date Seen The patient was seen on 01/27/19. Subjective Chief Complaint/HPI Patient seen and examined at bedside. Reports that she is feeling better today. She states that she was able to work with physical therapy this morning. Denies any complaints of shortness of breath or chest pain at this time. No acute overnight events noted. Objective Physical Examination General Exam: Positive: Alert, Cooperative, No Acute Distress ENT Exam: Positive: Atraumatic, Mucous membr. moist/pink, Other ENT (bitemporal wasting noted) Chest Exam: Positive: Diminished Heart Exam: Positive: Rate Normal, Normal S1, Normal S2 Abdomen Exam: Positive: Soft; Negative: Tenderness Extremity Exam: Negative: Tenderness, Swelling Psych Exam: Positive: Oriented x 3 Assessment /Plan Plan/VTE VTE Prophylaxis Ordered?: Yes Plan Acute on Chronic Hypercapnic Respiratory Failure 2/2 COPD Exacerbation CXR and Respiratory panel negative IV Steroids transitioned to PO, inhaler therapy, and serial nebulizer therapy as ordered Patient has been weaned off of BiPAP Pulmonary on board--appreciate input--Avelox ordered PT on board for functional optimization ESRD on HD Nephro consulted for management of dialysis HTN Cont Norvasc, Losartan Tobacco Abuse Counseled at length about cessation Anxiety/Depression Lexapro Hypothyroidism Cont Levothyroxine GERD Cont Protonix DVT Prophylaxis Heparin SC Dispo--pending clinical improvement. VS, I&O, 24H, [facility] Vital Signs/I&O Vital Signs Date Time Temp Pulse Resp B/P (MAP) Pulse Ox O2 Delivery O2 Flow Rate FiO2 01/27/19 12:00 99.1 84 18 152/80 (104) 94 01/26/19 04:00 30 01/26/19 03:29 BIPAP/CPAP I&O- Last 24 Hours up to 6 AM 01/27/19 06:00 Intake Total 660 ml Output Total 1000 ml Balance -340 ml Laboratory Data 24H LABS Laboratory Tests 2 01/26/19 20:09: Blood Gas Bicarbonate Standard 23.7, Arterial Blood pH 7.469H, Arterial Blood Partial Pressure CO2 30.8L, Arterial Blood Partial Pressure O2 165.7H, Arterial Blood Total CO2 22.8L, Arterial Blood HCO3 21.9L, Arterial Blood Base Excess - 1.0, Arterial Blood Oxygen Saturation 99.5H 01/27/19 04:45: Nucleated Red Blood Cells % (auto) 0.0, Anion Gap 12, Glomerular Filtration Rate 15.4L, Blood Urea Nitrogen 35H, Creatinine 3.17H, Sodium Level 138, Potassium Level 4.1#, Chloride Level 104, Carbon Dioxide Level 22, Calcium Level 7.2L, Aspartate Amino Transf (AST/SGOT) 19, Alanine Aminotransferase (ALT/SGPT) 12, Alkaline Phosphatase 78, Total Bilirubin 0.6, Total Protein 5.4L, Albumin 2.6#L, Albumin/Globulin Ratio 0.93L CBC/BMP Laboratory Tests 01/27/19 04:45 Red Blood Count 4.27, Mean Corpuscular Volume 90.2, Mean Corpuscular Hemoglobin 27.2, Mean Corpuscular Hemoglobin Concent 30.1 L, Red Cell Distribution Width 23.9 H, Calcium Level 7.2 L, Aspartate Amino Transf (AST/SGOT) 19, Alanine Aminotransferase (ALT/SGPT) 12, Alkaline Phosphatase 78, Total Bilirubin 0.6, Total Protein 5.4 L, Albumin 2.6 #L Microbiology Microbiology 01/25/19 Blood Culture - Preliminary, Resulted No Growth after 48 hours. All Specime... 01/25/19 Blood Culture - Preliminary, Resulted No Growth after 48 hours. All Specime... 01/25/19 Respiratory Virus Panel (PCR) ([facility]) - Final, Complete KARLIE ENRIQUEZ MD Jan 27, 2019 15:54
--- NOTE | 2019-01-27 17:05 | REP ---
PA and lateral chest: Comparison is 04/25/2017. The lung louis are clear. Cardiac size is normal. There is fullness in the right hilus as a change from the comparison study. A right hilar mass cannot be entirely discounted. Left hilus is unchanged. Mediastinum and skeletal structures are unremarkable. Impression: No infiltrates or effusions. Fullness in the right hilus, possibly indicating a right hilar mass. Electronically Signed by Cristopher Fry MD 01/27/2019 04:57 P
--- NOTE | 2019-01-27 20:07 | IPN ---
DATE: 01/27/2019 The patient was seen and examined this morning during rounds. She reports her breathing has improved. She does not have as much shortness of breath as she did yesterday; however, she does continue to have some cough; however, she does not feel that she has been producing much sputum. The patient did have a fever overnight of 100.4. No chest pain. She has been off of BiPAP and her ABG off BiPAP does not show any evidence of hypercarbia. PHYSICAL EXAMINATION: VITAL SIGNS: Maximum temperature (t-max) overnight 100.4, pulse 85, respirations 18, blood pressure 142/90, oxygen saturation 95%. GENERAL: The patient is a cachectic and chronically ill-appearing female. She is awake and alert. Does not appear to be in any acute respiratory distress at this time. HEENT: She is normocephalic, atraumatic. Dentures in place. NECK: Supple with no jugular venous distention (JVD) and no cervical adenopathy palpated. Trachea is midline. CARDIAC: Distant heart sounds. Regular rate and rhythm. Normal S1, S2. No murmurs auscultated. CHEST: The patient has some faint wheezes and squeaks, increased rhonchorous breath sounds, more on the right side than on the left, which were not noted yesterday. ABDOMEN: Thin, soft, nontender. EXTREMITIES: There is no lower extremity edema noted. She has extensive ecchymoses in her upper and lower extremities. LABORATORIES: WBC 7.4, hemoglobin 11.6, platelets 128. Chemistry: Sodium 138, potassium 4.1, chloride 104, bicarbonate 22, BUN 35, creatinine 3.17, glucose 95. Yesterday evening her ABG after she had been off BiPAP all day showed a pH of 7.469, PCO2 of 30.8, and PO2 of 105.7. ASSESSMENT AND PLAN: The patient is a 68-year-old female with a past medical history of chronic obstructive pulmonary disease (COPD) with chronic hypoxemic respiratory failure, on nasal cannula oxygen, end stage renal disease secondary to polycystic kidney and liver disease on hemodialysis, diastolic congestive heart failure (CHF) and pulmonary hypertension, hypothyroidism, who presented with altered mental status and worsening shortness of breath. The patient with acute on mild hypercarbic respiratory failure, likely secondary to acute COPD exacerbation. Her initial chest x-ray did not show any focal opacities of infiltrates. There are no effusions. She initially was afebrile and her influenza and viral panels were negative. The patient was placed on BiPAP with improvement in her ABG and mental status. She was also started on IV steroids and DuoNeb with improvement. She was weaned off of BiPAP and repeat ABG while she has been off BiPAP did not show significant hypercarbia. Overnight, the patient was noted to have a low grade fever of 100.4. This morning she does appear to have more rhonchorous breath sounds on examination and more sputum production. Therefore, would repeat a chest x-ray to evaluate for any developing infiltrates. We will start her on Avelox for her chronic obstructive pulmonary disease (COPD) exacerbation and a possible atypical infection. Continue tapering of her IV steroids to oral prednisone and continue with a slow taper of prednisone as per her primary team. Continue with Symbicort and DuoNeb. Would need to restart Incruse once she is off the standing DuoNeb. Followup cultures. The patient is DO NOT RESUSCITATE, DO NOT INTUBATE. Please do not hesitate to call for any further questions or concerns.
[2019-01-27] MEDS: ESCITALOPRAM OXALATE 10 MG TAB (LEXAPRO) PO SCH (20:37)
[2019-01-28] VITALS: BP 142/62
[2019-01-28] MEDS: IPRATROPIUM 0.5MG/ALBUTEROL 2.5MG INH SOL UD 3ML (DUONEB)(J7620) NEB SCH ×7 (00:23→23:45)
[2019-01-28 04:00] VITALS: BP 138/88
[2019-01-28 05:33] LABS: HEMOGLOBIN 12.7 g/dl (12.0-15.5); MEAN CORPUSCULAR HEMOGLOBIN 27.3 pg (27.0-33.0); MEAN CORPUSCULAR HGB CONC 30.2 g/dl (32.0-36.5); MEAN CORPUSCULAR VOLUME 90.3 fl (80.0-96.0); PLATELET COUNT, AUTOMATED 127 10^3/uL (150-450); RED BLOOD COUNT 4.65 10^6/uL (4.00-5.40); WHITE BLOOD COUNT 4.9 10^3/uL (4.0-10.0)
[2019-01-28 06:03] LABS: ALBUMIN 3.2 GM/DL (3.2-5.2); BILIRUBIN,TOTAL 0.7 MG/DL (0.2-1.0); CREATININE FOR GFR 3.97 MG/DL (0.55-1.30); GLOMERULAR FILTRATION RATE 11.9 (>39); TOTAL PROTEIN 5.6 GM/DL (6.4-8.2)
[2019-01-28] MEDS: MOXIFLOXACIN 400 MG TAB PO SCH (06:30)
[2019-01-28] MEDS: LEVOTHYROXINE 137MCG TABLET (0.137MG) PO SCH (06:30)
[2019-01-28] MEDS: ACETAMINOPHEN TAB 650MG DOSE (2X325MG) PO PRN ×2 (06:56→16:23)
[2019-01-28] MEDS: SYMBICORT 160/4.5MCG INHALER 6GM INH SCH ×2 (07:22→20:19)
[2019-01-28 08:00] VITALS: BP 130/78
[2019-01-28] MEDS: LOSARTAN 50 MG TAB PO SCH (08:38)
[2019-01-28] MEDS: HEPARIN SOD (PORCINE) 5000 UNITS/ML VIAL SQ SCH ×2 (08:39→20:49)
[2019-01-28] MEDS: PANTOPRAZOLE 40MG TAB (PROTONIX) PO SCH (08:39)
[2019-01-28] MEDS: ASPIRIN 81 MG ENTERIC TAB PO SCH (08:39)
[2019-01-28] MEDS: amLODIPine 10 MG TAB PO SCH (08:39)
[2019-01-28] MEDS: predniSONE 20 MG TAB PO SCH (08:39)
--- NOTE | 2019-01-28 15:11 | IPNPDOC ---
Subjective Date Seen The patient was seen on 01/28/19. Subjective Chief Complaint/HPI Patient seen and examined at bedside. No acute overnight events noted. Of note, a follow-up chest x-ray revealed questionable right hilar mass. CT scan of the chest with contrast is ordered for tomorrow morning prior to dialysis. Otherwise, the patient states that her respiratory status continues to improve. Objective Physical Examination General Exam: Positive: Alert, Cooperative, No Acute Distress ENT Exam: Positive: Atraumatic, Mucous membr. moist/pink, Other ENT (bitemporal wasting noted) Chest Exam: Positive: Diminished Heart Exam: Positive: Rate Normal, Normal S1, Normal S2 Abdomen Exam: Positive: Soft; Negative: Tenderness Extremity Exam: Negative: Tenderness, Swelling Psych Exam: Positive: Oriented x 3 Assessment /Plan Plan/VTE VTE Prophylaxis Ordered?: Yes Plan Acute on Chronic Hypercapnic Respiratory Failure 2/2 COPD Exacerbation CXR and Respiratory panel negative IV Steroids transitioned to PO, inhaler therapy, and serial nebulizer therapy as ordered Patient has been weaned off of BiPAP Pulmonary on board--appreciate input--[facility] ordered PT on board for functional optimization Right Hilar Mass noted on F/U CXR CT Chest w/ Contrast ordered for the AM prior to dialysis--discussed with Nephro We will follow up imaging results ESRD on HD Nephro consulted for management of dialysis HTN Cont Norvasc, Losartan Tobacco Abuse Counseled at length about cessation Anxiety/Depression Lexapro Hypothyroidism Cont Levothyroxine GERD Cont Protonix Severe Malnourishment BMI noted to be 13.7 DVT Prophylaxis Heparin SC Dispo--pending clinical improvement. VS, I&O, 24H, Fishbone Vital Signs/I&O Vital Signs Date Time Temp Pulse Resp B/P (MAP) Pulse Ox O2 Delivery O2 Flow Rate FiO2 01/28/19 08:39 85 130/78 01/28/19 08:00 98.9 20 94 01/26/19 04:00 30 01/26/19 03:29 BIPAP/CPAP I&O- Last 24 Hours up to 6 AM 01/28/19 05:59 Intake Total 360 ml Output Total 0 ml Balance 360 ml Laboratory Data 24H LABS Laboratory Tests 2 01/28/19 04:41: Nucleated Red Blood Cells % (auto) 0.0, Anion Gap 10, Glomerular Filtration Rate 11.9L, Blood Urea Nitrogen 48H, Creatinine 3.97H, Sodium Level 136, Potassium Level 4.0, Chloride Level 103, Carbon Dioxide Level 23, Calcium Level 7.0L, Aspartate Amino Transf (AST/SGOT) 19, Alanine Aminotransferase (ALT/SGPT) 14, Alkaline Phosphatase 76, Total Bilirubin 0.7, Total Protein 5.6L, Albumin 3.2#, Albumin/Globulin Ratio 1.33 CBC/BMP Laboratory Tests 01/28/19 04:41 Red Blood Count 4.65, Mean Corpuscular Volume 90.3, Mean Corpuscular Hemoglobin 27.3, Mean Corpuscular Hemoglobin Concent 30.2 L, Red Cell Distribution Width 23.7 H, Calcium Level 7.0 L, Aspartate Amino Transf (AST/SGOT) 19, Alanine Aminotransferase (ALT/SGPT) 14, Alkaline Phosphatase 76, Total Bilirubin 0.7, Total Protein 5.6 L, Albumin 3.2 # Microbiology Microbiology 01/25/19 Blood Culture - Preliminary, Resulted No Growth after 72 hours. All specime... 01/25/19 Blood Culture - Preliminary, Resulted No Growth after 72 hours. All specime... 01/25/19 Respiratory Virus Panel (PCR) ([facility]) - Final, Complete KARLIE ENRIQUEZ MD Jan 28, 2019 15:11
[2019-01-28 20:00] VITALS: BP 128/52
[2019-01-28] MEDS: ESCITALOPRAM OXALATE 10 MG TAB (LEXAPRO) PO SCH (20:49)
[2019-01-28 23:59] VITALS: BP 142/53
[2019-01-29] MEDS: IPRATROPIUM 0.5MG/ALBUTEROL 2.5MG INH SOL UD 3ML (DUONEB)(J7620) NEB SCH ×6 (04:00→23:44)
[2019-01-29 04:45] VITALS: BP 138/52
[2019-01-29 04:57] LABS: HEMATOCRIT 42.5 % (36.0-47.0); HEMOGLOBIN 12.8 g/dl (12.0-15.5); MEAN CORPUSCULAR HEMOGLOBIN 27.6 pg (27.0-33.0); MEAN CORPUSCULAR HGB CONC 30.1 g/dl (32.0-36.5); MEAN CORPUSCULAR VOLUME 91.6 fl (80.0-96.0); PLATELET COUNT, AUTOMATED 129 10^3/uL (150-450); RED BLOOD COUNT 4.64 10^6/uL (4.00-5.40); WHITE BLOOD COUNT 6.7 10^3/uL (4.0-10.0)
[2019-01-29] MEDS: LEVOTHYROXINE 137MCG TABLET (0.137MG) PO SCH (05:12)
[2019-01-29] MEDS: MOXIFLOXACIN 400 MG TAB PO SCH (05:12)
[2019-01-29 05:30] LABS: ALBUMIN 2.8 GM/DL (3.2-5.2); BILIRUBIN,TOTAL 0.5 MG/DL (0.2-1.0); CALCIUM LEVEL 6.6 MG/DL (8.8-10.2); CREATININE FOR GFR 4.59 MG/DL (0.55-1.30); GLOMERULAR FILTRATION RATE 10.1 (>39); POTASSIUM SERUM 3.9 MEQ/L (3.5-5.1); TOTAL PROTEIN 5.3 GM/DL (6.4-8.2)
[2019-01-29] MEDS: PANTOPRAZOLE 40MG TAB (PROTONIX) PO SCH (06:44)
[2019-01-29] MEDS: predniSONE 20 MG TAB PO SCH (06:44)
[2019-01-29] MEDS: HEPARIN SOD (PORCINE) 5000 UNITS/ML VIAL SQ SCH ×2 (06:46→21:00)
[2019-01-29] MEDS ORDERED: ISOVUE-370 76% 100ML VIAL (Q9967) As Ordered ONE (07:30)
[2019-01-29 08:00] VITALS: BP 162/80
[2019-01-29] MEDS: LOSARTAN 50 MG TAB PO SCH (09:13)
[2019-01-29] MEDS: amLODIPine 10 MG TAB PO SCH (09:13)
--- NOTE | 2019-01-29 11:09 | IPN ---
DATE: 01/27/2019 Mrs. Blackmon is seen this morning on her bedside. She was admitted with respiratory insufficiency and required BiPap. Her respiratory status has improved significantly since admission and she is feeling much better now. She was dialyzed yesterday. PHYSICAL EXAMINATION: Temperature 99 degrees Fahrenheit, heart rate 84 per minute and respiratory rate 18 per minute. Blood pressure 152/80 mmHg and oxygen saturation 94%. She is chronically ill looking with significant wasting and loss of facial fat. Head is atraumatic. Neck is supple and jugular venous distention (JVD) difficult to be assessed. Heart sounds are irregular and lungs with markedly diminished breath sounds bilaterally. Abdomen is soft, large polycystic kidneys and polycystic liver are palpable. Extremities have no cyanosis or clubbing. Neurologically, she is awake, alert and at her baseline mentation. Today's labs show WBC count 7.3, hemoglobin 11.6 and hematocrit 38.5. Sodium 138, potassium 4.1, CO2 22, BUN 35 and creatinine 3.17, glucose 95 and calcium 7.2. PROBLEMS: 1. End-stage renal disease. The patient was dialyzed yesterday, and we will plan to dialyze her again on Tuesday. 2. Hyperkalemia. Her hyperkalemia corrected with dialysis yesterday and no other intervention is indicated at this point. Electrolytes will be checked again tomorrow. 3. Anemia. She does have mild anemia, which does not need any intervention at this point. 4. Chronic obstructive pulmonary disease (COPD) with respiratory insufficiency. She does have advanced lung disease with active smoking. Unfortunately, she has not been able to quit smoking despite multiple efforts. In any event, at present, her respiratory status has improved and volume status is very well compensated. 5. Hypertension. Blood pressure seems reasonably well-controlled, and I am not making any changes today.
[2019-01-29 12:00] VITALS: BP 150/68
[2019-01-29] MEDS ORDERED: LIDOCAINE 1% MDV 20ML VIAL As Ordered ONE (13:18)
[2019-01-29] MEDS: SYMBICORT 160/4.5MCG INHALER 6GM INH SCH ×2 (13:22→19:41)
--- NOTE | 2019-01-29 14:31 | CR ---
DATE OF CONSULTATION: 01/26/2019 REQUESTING PHYSICIAN: Dr. Chau Donahue REASON FOR CONSULTATION: Management of end stage renal disease on hemodialysis. HISTORY OF PRESENT ILLNESS: Karina Blackmon is well known to me. She is a 68-year-old female with a past medical history of end stage chronic obstructive pulmonary disease (COPD) on home oxygen, chronic active smoker, end stage renal disease on hemodialysis, on a Tuesday, Tuesday, and Tuesday schedule, chronic diastolic congestive heart failure (CHF), pulmonary hypertension, hypothyroidism, and failure to thrive. She presented to the emergency room with complaint of worsening shortness of breath over the past several days. She denies any complaints of fevers, chills, chest pain, palpitations. She is still smoking four cigarettes a day. She says that inhaler nebulizer therapy did not help her symptoms and thus she came to the hospital for further evaluation. In the ER she was noted to be in hypercapnic respiratory failure. She was started on BiPAP and today her potassium was elevated at 6.4 and saw the patient this morning in the hemodialysis unit receiving her treatment. PAST MEDICAL HISTORY: As mentioned above: End stage renal disease secondary to polycystic kidneys. End stage COPD on home oxygen. Chronic active smoker. Chronic diastolic congestive heart failure (CHF). Pulmonary hypertension. Hypothyroidism. Failure to thrive, Anemia of chronic renal failure. Secondary hyperparathyroidism of renal origin. PAST SURGICAL HISTORY: AV fistula in the left arm. Status post right hip arthroplasty. FAMILY HISTORY: Polycystic kidneys. Her daughter is on dialysis as well. PERSONAL/SOCIAL HISTORY: She is a longterm smoker. No alcohol or drugs. ALLERGIES: 1. LISINOPRIL. 2. CODEINE. HOME MEDICATIONS: Reviewed and include: - albuterol nebulizer as needed - amlodipine 10 mg by mouth daily - aspirin 81 mg daily - Symbicort two puffs twice a day - PhosLo 667 mg by mouth daily - Lexapro 20 mg at bedtime - INCRUSE one puff daily - Synthroid 137 mcg daily - losartan 100 mg by mouth daily - iron 500 mg by mouth daily - Arielle-Roby one tablet by mouth daily REVIEW OF SYSTEMS: CONSTITUTIONAL: She denies fever or chills. EYES: She denies vision changes or blurring. ENT: She denies rhinorrhea or odynophagia. CARDIAC: She reports a history of diastolic congestive heart failure . She denies chest pain. RESPIRATORY: She has COPD, oxygen dependent. She reports shortness of breath. She is a chronic active smoker. GASTROINTESTINAL (GI): She denies vomiting or diarrhea. She reports chronic poor appetite. GENITOURINARY (): She denies dysuria or hematuria. MUSCULOSKELETAL: She has a severely decreased lean muscle mass. She denies any new myalgia or arthralgia. ENDOCRINE: She reports hypothyroidism and secondary hyperparathyroidism. NEUROLOGIC: She denies seizures or syncope. HEMATOLOGIC: She reports easy bruising. Denies longterm anticoagulant use. Remainder of review of systems is as per HPI. PHYSICAL EXAMINATION: VITAL SIGNS: Temperature 99.3, pulse 72, respiratory rate 24, blood pressure 152/81, saturating 96% on 2 liters nasal cannula. Weight on the bed scale today is 36.7 kg. GENERAL: Patient is seen on hemodialysis receiving her treatment, awake and alert, no acute respiratory distress. She is chronically ill appearing and frail, cachectic. HEENT: There is bitemporal wasting. The tongue is moist. There is no jugular venous distention (JVD). CHEST: Shows expiratory wheeze throughout, prolonged expiration. No accessory muscle use. She is on nasal cannula. CARDIAC: S1, S2 regular rate and rhythm. ABDOMEN: Soft. There are easily palpable liver and kidneys. EXTREMITIES: Show muscle wasting, which is prominent. There is no edema. The left upper extremity fistula is in use. SKIN: Shows scattered ecchymosis. NEUROLOGIC: She is oriented times three. LABORATORIES: Sodium 140, potassium 6.4, bicarbonate 19, hemoglobin 12.3. Blood cultures negative for 24 hours. Chest x-ray 01/25 no acute infiltrate. INPATIENT MEDICATIONS: - Tylenol as needed - albuterol every 2 hours as needed - amlodipine 10 mg by mouth daily - aspirin 81 mg by mouth four days a week - Symbicort two puffs inhaled twice a day - DuoNebs 3 mL nebulized around the clock every 4 hours - Lexapro 20 mg by mouth at bedtime - heparin 5000 units subcu every 12 hours - Synthroid 137 mcg by mouth daily - losartan 100 mg by mouth daily - Protonix 40 mg by mouth daily - prednisone 40 mg by mouth daily PROBLEMS: 1. End stage renal disease on hemodialysis on a Tuesday, Tuesday, and Tuesday schedule. Patient is significantly hyperkalemic. Potassium 6.4. She is on a potassium restricted diet. She is being dialyzed today with a 1.0 mEq potassium bath. Her fistula is in good use. Her volume status is acceptable. 2. Acute on chronic hypercapnic respiratory failure secondary to COPD exacerbation in this patient with end stage COPD home oxygen dependent and who is an ongoing smoker. Pulmonary is following her. She improved on BiPAP. She was receiving IV steroids but she lost the IV access and the nurses were unable to place a new IV access, hence I have switched her to oral prednisone. She of course, continues with supplemental oxygen and nebulizer therapy. 3. Hypertension. Blood pressures are acceptable. No changes are being made to the current regimen of Norvasc and losartan. Thank you for involving me in the care of Ms. Blackmon. I will be happy to follow her along with you.
--- NOTE | 2019-01-29 14:50 | IPNPDOC ---
Subjective Date Seen The patient was seen on 01/29/19. Subjective Chief Complaint/HPI Patient seen and examined at bedside. Denies any acute overnight events. Objective Physical Examination General Exam: Positive: Alert, Cooperative, No Acute Distress ENT Exam: Positive: Atraumatic, Mucous membr. moist/pink, Other ENT (bitemporal wasting noted) Chest Exam: Positive: Diminished Heart Exam: Positive: Rate Normal, Normal S1, Normal S2 Abdomen Exam: Positive: Soft; Negative: Tenderness Extremity Exam: Negative: Tenderness, Swelling Psych Exam: Positive: Oriented x 3 Assessment /Plan Plan/VTE VTE Prophylaxis Ordered?: Yes Plan Acute on Chronic Hypercapnic Respiratory Failure 2/2 COPD Exacerbation CXR and Respiratory panel negative IV Steroids transitioned to PO, inhaler therapy, and serial nebulizer therapy as ordered Patient has been weaned off of BiPAP Pulmonary on board--appreciate input--[facility] ordered PT on board for functional optimization Right Hilar Mass noted on F/U CXR CT Chest w/ Contrast ordered for this AM prior to dialysis--discussed with Nephro We will follow up imaging results ESRD on HD Nephro consulted for management of dialysis HTN Cont Norvasc, Losartan Tobacco Abuse Counseled at length about cessation Anxiety/Depression Lexapro Hypothyroidism Cont Levothyroxine GERD Cont Protonix Severe Malnourishment BMI noted to be 13.7 DVT Prophylaxis Heparin SC Dispo--pending clinical improvement. Dispo--pending clinical improvement, dialysis. Potential discharge in 24-48 hours depending on the results of CT chest. VS, I&O, 24H, Fishbone Vital Signs/I&O Vital Signs Date Time Temp Pulse Resp B/P (MAP) Pulse Ox O2 Delivery O2 Flow Rate FiO2 01/29/19 12:00 98.9 83 18 150/68 (95) 95 01/26/19 04:00 30 01/26/19 03:29 BIPAP/CPAP I&O- Last 24 Hours up to 6 AM 01/29/19 06:00 Intake Total 1200 ml Output Total 280 ml Balance 920 ml Laboratory Data 24H LABS Laboratory Tests 2 01/29/19 04:26: Nucleated Red Blood Cells % (auto) 0.0, Anion Gap 12, Glomerular Filtration Rate 10.1L, Blood Urea Nitrogen 61H, Creatinine 4.59H, Sodium Level 137, Potassium Level 3.9, Chloride Level 104, Carbon Dioxide Level 21, Calcium Level 6.6L, Aspartate Amino Transf (AST/SGOT) 19, Alanine Aminotransferase (ALT/SGPT) 16, Alkaline Phosphatase 87, Total Bilirubin 0.5, Total Protein 5.3L, Albumin 2.8L, Albumin/Globulin Ratio 1.12 CBC/BMP Laboratory Tests 01/29/19 04:26 Red Blood Count 4.64, Mean Corpuscular Volume 91.6, Mean Corpuscular Hemoglobin 27.6, Mean Corpuscular Hemoglobin Concent 30.1 L, Red Cell Distribution Width 23.6 H, Calcium Level 6.6 L, Aspartate Amino Transf (AST/SGOT) 19, Alanine Aminotransferase (ALT/SGPT) 16, Alkaline Phosphatase 87, Total Bilirubin 0.5, Total Protein 5.3 L, Albumin 2.8 L Microbiology Microbiology 01/25/19 Blood Culture - Preliminary, Resulted No Growth after 72 hours. All specime... 01/25/19 Blood Culture - Preliminary, Resulted No Growth after 72 hours. All specime... 01/25/19 Respiratory Virus Panel (PCR) ([facility]) - Final, Complete KARLIE ENRIQUEZ MD Jan 29, 2019 14:50
[2019-01-29] MEDS ORDERED: SODIUM CHLORIDE 0.9% INJ 10 ML SYR IV PRN (15:00)
[2019-01-29] MEDS: ACETAMINOPHEN TAB 650MG DOSE (2X325MG) PO PRN ×2 (15:24→21:10)
--- NOTE | 2019-01-29 15:33 | IPN ---
DATE: 01/28/2019 Ms. Blackmon is seen this morning on her bedside. She is feeling about the same and denies any fever, chills, nausea or vomiting. She has advanced lung disease with chronic hypoxemia. She is weak and remains mostly in the bed. PHYSICAL EXAMINATION: Temperature 98.9 degrees Fahrenheit, heart rate 85 per minute and respiratory rate 20 per minute. Blood pressure 130/78 mmHg and oxygen saturation 94% on room air. Head is atraumatic. Neck is supple and jugular venous distention (JVD) difficult to be assessed. She is chronically wasted and emaciated due to malnutrition and chronic advanced lung disease. Her lungs have moderate bilateral air entry. Abdomen is soft with large polycystic kidneys and liver. Extremities have no cyanosis or clubbing. Neurologically, she is awake and at her baseline mentation. Today's labs show WBC count 4.9, hemoglobin 12.7 and hematocrit 42.0. Sodium 136, potassium 4.0, CO2 23, BUN 48 and creatinine 3.97. Her chest x-ray done yesterday for followup showed no infiltrate or effusion. Fullness in the right hilum was suggestive of a right hilar mass. PROBLEMS: 1. End-stage renal disease. The patient was last dialyzed on Tuesday and her next dialysis will be scheduled for tomorrow. Volume status is well-compensated and electrolytes are stable. There is no emergent need for dialysis today. 2. Hypertension. Blood pressure is very well controlled on current antihypertensive medications and no changes are being made today. 3. Chronic obstructive pulmonary disease (COPD) and congestive heart failure. Her respiratory status has also improved and volume status is well-compensated. We will continue to manage it with dialysis. 4. Right hilar mass. She had an abnormal chest x-ray. She has had multiple imaging in recent past and there was no such mass visible previously. I suspect this is just related to her COPD and volume status. She is going to need a CT scan of chest with IV contrast, which can be done any time before her next dialysis tomorrow morning. 5. Protein calorie malnutrition. This is a chronic issue and unchanged. She continues to eat as good as she can.
[2019-01-29 16:00] VITALS: BP 142/78
--- NOTE | 2019-01-29 17:36 | REP ---
CT of the chest with IV contrast for acute and chronic respiratory failure. Comparison is 05/24/2017. There are numerous bulla throughout the lung louis bilaterally. This is unchanged. There is focal atelectasis versus subsegmental infiltrate versus scarring in the extreme apex of the right upper lobe as an interval change. There is focal atelectasis inferomedially in the anterior segment of the right upper lobe as an interval change. There are no other infiltrates. There is a small right pleural effusion. There is a small left pleural effusion. There are no masses or nodules. The transverse diameter of the pulmonary trunk is 32 mm. This is compatible with pulmonary hypertension. The transverse diameter of the ascending aorta is 39 mm. This is upper normal. There is no mediastinal or hilar lymph node enlargement. There is no axillary lymph node enlargement. The thoracic aorta is unremarkable except for occasional calcified atheroma. Cardiac size is normal. Upper abdomen: The patient has known polycystic renal disease. There are numerous hepatic and renal cysts, unchanged. Impression: There are are small bilateral pleural effusions. There is a small subsegmental zone of atelectasis/infiltrate inferomedially in the anterior segment of the right upper lobe. There is a small focal zone of atelectasis versus scarring versus infiltrate in the extreme apex of the right upper lobe. Chronic bullous emphysema. Transverse diameter of the pulmonary trunk is compatible with pulmonary hypertension. Known polycystic renal disease with multiple hepatic and renal cysts. Electronically Signed by Cristopher Fry MD 01/29/2019 05:28 P
[2019-01-29] MEDS: SODIUM CHLORIDE 0.9% INJ 10 ML SYR IV SCH (18:00)
--- NOTE | 2019-01-29 19:38 | REP ---
MIDLINE CATHETER INSERTION SITE RITE The procedure was performed under the direct supervision of Dr. Parsons The risks and benefits of the procedure were explained to the patient and informed consent was obtained. The right basilic vein was localized using ultrasound guidance. The skin was prepped and draped in a sterile fashion. 1% lidocaine was used as a local anesthetic. Using ultrasound guidance the basilic vein was cannulated and a 0.018 a guide wire was inserted. The needle was removed and a 4.5 Korean dilator and peel-away sheath was inserted over the guide wire. A 4.5 [place] single-lumen catheter was cut to length of 12 cm. The dilator was removed and the catheter was inserted over the guide wire. The peel-away sheath was removed and the catheter was flushed with heparinized saline as per Hospital protocol. The catheter was affixed to the skin and a sterile dressing was applied. The patient tolerated the procedure well and there were no immediate complications. Reviewed by HARJINDER Villanueva 01/29/2019 03:44 P Electronically Signed by Juan Parsons MD 01/29/2019 07:36 P
[2019-01-29 20:00] VITALS: BP 130/70
[2019-01-29] MEDS: ESCITALOPRAM OXALATE 10 MG TAB (LEXAPRO) PO SCH (21:10)
[2019-01-30] VITALS: BP 132/68
[2019-01-30] MEDS: IPRATROPIUM 0.5MG/ALBUTEROL 2.5MG INH SOL UD 3ML (DUONEB)(J7620) NEB SCH ×3 (03:38→11:57)
[2019-01-30 04:00] VITALS: BP 120/60
[2019-01-30] MEDS: LEVOTHYROXINE 137MCG TABLET (0.137MG) PO SCH (05:52)
[2019-01-30] MEDS: MOXIFLOXACIN 400 MG TAB PO SCH (05:52)
[2019-01-30] MEDS: SODIUM CHLORIDE 0.9% INJ 10 ML SYR IV SCH (05:52)
[2019-01-30 06:15] LABS: HEMATOCRIT 42.5 % (36.0-47.0); HEMOGLOBIN 12.9 g/dl (12.0-15.5); MEAN CORPUSCULAR HEMOGLOBIN 27.4 pg (27.0-33.0); MEAN CORPUSCULAR HGB CONC 30.4 g/dl (32.0-36.5); MEAN CORPUSCULAR VOLUME 90.4 fl (80.0-96.0); PLATELET COUNT, AUTOMATED 117 10^3/uL (150-450); WHITE BLOOD COUNT 6.5 10^3/uL (4.0-10.0)
[2019-01-30 06:47] LABS: BILIRUBIN,TOTAL 0.7 MG/DL (0.2-1.0); CALCIUM LEVEL 7.3 MG/DL (8.8-10.2); CREATININE FOR GFR 2.92 MG/DL (0.55-1.30); GLOMERULAR FILTRATION RATE 16.9 (>39); POTASSIUM SERUM 3.6 MEQ/L (3.5-5.1); TOTAL PROTEIN 5.2 GM/DL (6.4-8.2)
[2019-01-30] MEDS: SYMBICORT 160/4.5MCG INHALER 6GM INH SCH (07:21)
[2019-01-30 08:00] VITALS: BP 142/90
--- NOTE | 2019-01-30 08:07 | IPN ---
DATE OF VISIT: 01/29/2019 Ms. Blackmon is seen this morning on her bedside. She is very worried and almost tearful because of the news that she was told about her possible lung mass. She is going to have a peripherally inserted central catheter (PICC) line placed for IV contrast and then she will get CT scan of chest with IV contrast. Chest x-ray did show fullness in the right hilar area and there was a suspicion for a lung mass due to which she is scheduled for CT scan of of yesterday. After the CT scan, she will go for her regular hemodialysis. She denies any nausea, vomiting, fever or chills. On physical exam, temperature 98.5 degrees Fahrenheit, heart rate 80 per minute and respiratory rate 18 per minute. Blood pressure 162/80 mmHg and oxygen saturation 94% on room air. Head is atraumatic. She is chronically malnourished and emaciated with loss of facial fat. Neck veins are not abnormally distended. Heart sounds are regular and lungs have moderate bilateral air entry without any wheezing or rales at present. Abdomen soft and nontender and extremities without any cyanosis or clubbing. Neurologically, she is at her baseline mentation. Today's labs show WBC count 6.7, hemoglobin 12.8 and hematocrit 42.5. Platelets 129. Sodium 137, potassium 3.9, chloride 104, CO2 21, BUN 61 and creatinine 4.59. PROBLEMS: 1. End-stage renal disease. Patient is scheduled for dialysis later this afternoon. We are going to wait for her CAT scan with IV contrast done before we dialyze her. 2. Hypertension. Blood pressure has been reasonably well-controlled. Today, she is slightly high most likely related to anxiety and stress. No changes are being made in her antihypertensive meds. 3. Chronic obstructive pulmonary disease (COPD) and congestive heart failure. Her respiratory status is stable and volume status is reasonably well-compensated. We will try to remove about 1 liter of fluid as tolerated with dialysis. 4. Possible lung mass. Patient is scheduled for a CT scan of chest with IV contrast to further evaluate her lungs.
[2019-01-30] MEDS: predniSONE 20 MG TAB PO SCH (09:16)
[2019-01-30] MEDS: ASPIRIN 81 MG ENTERIC TAB PO SCH (09:17)
[2019-01-30] MEDS: HEPARIN SOD (PORCINE) 5000 UNITS/ML VIAL SQ SCH (09:17)
[2019-01-30] MEDS: PANTOPRAZOLE 40MG TAB (PROTONIX) PO SCH (09:18)
[2019-01-30 09:54] VITALS: BP 142/90
[2019-01-30] MEDS: amLODIPine 10 MG TAB PO SCH (09:54)
[2019-01-30] MEDS: LOSARTAN 50 MG TAB PO SCH (09:54)
[2019-01-30] MEDS ORDERED: PRED10TA2 PO (12:23)
[2019-01-30] MEDS ORDERED: AVEL1TAB3 PO (12:23)
[2019-01-30] MEDS ORDERED: GLUCLIQ PO (13:36)
--- NOTE | 2019-01-30 13:40 | DS.PDOC ---
Discharge Summary General Date of Admission Jan 25, 2019 at 12:31 Date of Discharge 01/30/19 Specialist/Consultants Involve Dr. Tejeda of Pulmonary, Dr. Mena of Nephrology Discharge Summary PROCEDURES PERFORMED DURING STAY: Midline insertion on 01/29/19 ADMITTING/DISCHARGE DIAGNOSES: Acute on Chronic Hypercapnic Respiratory Failure 2/2 COPD Exacerbation End-stage renal disease on hemodialysis Hypertension Tobacco use Anxiety/depression Hypothyroidism GERD Severe malnourishment/cachexia COMPLICATIONS/CHIEF COMPLAINT: Acute And Chronic Respiratory Failure W Hypercapni. HISTORY OF PRESENT ILLNESS: . 68-year-old female with past medical history of advanced COPD on home oxygen, active tobacco use, end-stage renal disease on hemodialysis, chronic diastolic congestive heart failure, pulmonary hypertension, hypothyroidism, and failure to thrive presents to the ER with a chief complaint of worsening shortness of breath over the last several days. She denied any complaints of fevers, chills, chest pain, palpitations, abdominal pain, or any nausea/vomiting/diarrhea. She states that serial inhaler and nebulizer therapy did not help her symptoms and thus she presented to the hospital for further evaluation and management. In the ER, the patient was noted to be in hypercapnic respiratory failure. She was started on BiPAP therapy. The patient will be admitted to the hospitalist service, and a consult has been placed to pulmonary for management of BiPAP. During hospitalization, the patient was also started on IV steroids and antibiotic therapy. The patient's respiratory status subsequently improved and she was weaned off BiPAP therapy. A follow-up CT scan of the chest was ordered for possible hilar mass, however CT imaging did not reveal any masses or nodules as per the report listed below. The patient was regularly dialyzed with the assistance of nephrology. At this time, patient states that she is feeling much better and is eager to return home. I've advised the patient to finish her course of prednisone taper and antibiotic therapy as prescribed. She has been counseled to follow-up with her primary care physician within 7 days, and with pulmonary in 4-6 weeks. Lastly, the patient has been counseled at length to abstain from tobacco use. She has been instructed to return to the ER for any acute emergencies.. DISCHARGE MEDICATIONS: Please see below. ALLERGIES: Please see below. PHYSICAL EXAMINATION ON DISCHARGE: VITAL SIGNS: Please see below. General Exam: Positive: Alert, Cooperative, No Acute Distress ENT Exam: Positive: Atraumatic, Mucous membr. moist/pink, Other ENT (bitemporal wasting noted) Chest Exam: Positive: Diminished Heart Exam: Positive: Rate Normal, Normal S1, Normal S2 Abdomen Exam: Positive: Soft; Negative: Tenderness Extremity Exam: Negative: Tenderness, Swelling Psych Exam: Positive: Oriented x 3 LABORATORY DATA: Please see below. IMAGING: CHEST, PORTABLE: Single frontal view of the chest is performed. There is no acute infiltrate. Heart is not enlarged. There is calcification of the thoracic aorta. The mediastinal silhouette is unchanged. IMPRESSION: No acute infiltrate. PA and lateral chest: Comparison is 04/25/2017. The lung louis are clear. Cardiac size is normal. There is fullness in the right hilus as a change from the comparison study. A right hilar mass cannot be entirely discounted. Left hilus is unchanged. Mediastinum and skeletal structures are unremarkable. Impression: No infiltrates or effusions. Fullness in the right hilus, possibly indicating a right hilar mass. CT of the chest with IV contrast for acute and chronic respiratory failure. Comparison is 05/24/2017. There are numerous bulla throughout the lung louis bilaterally. This is unchanged. There is focal atelectasis versus subsegmental infiltrate versus scarring in the extreme apex of the right upper lobe as an interval change. There is focal atelectasis inferomedially in the anterior segment of the right upper lobe as an interval change. There are no other infiltrates. There is a small right pleural effusion. There is a small left pleural effusion. There are no masses or nodules. The transverse diameter of the pulmonary trunk is 32 mm. This is compatible with pulmonary hypertension. The transverse diameter of the ascending aorta is 39 mm. This is upper normal. There is no mediastinal or hilar lymph node enlargement. There is no axillary lymph node enlargement. The thoracic aorta is unremarkable except for occasional calcified atheroma. Cardiac size is normal. Upper abdomen: The patient has known polycystic renal disease. There are numerous hepatic and renal cysts, unchanged. Impression: There are are small bilateral pleural effusions. There is a small subsegmental zone of atelectasis/infiltrate inferomedially in the anterior segment of the right upper lobe. There is a small focal zone of atelectasis versus scarring versus infiltrate in the extreme apex of the right upper lobe. Chronic bullous emphysema. Transverse diameter of the pulmonary trunk is compatible with pulmonary hypertension. Known polycystic renal disease with multiple hepatic and renal cysts. PROGNOSIS: Poor long-term prognosis ACTIVITY: As tolerated. DIET: COPD diet DISCHARGE PLAN: DISPOSITION: . Home w/ services DISCHARGE INSTRUCTIONS: I've advised the patient to finish her course of prednisone taper and antibiotic therapy as prescribed. She has been counseled to follow-up with her primary care physician within 7 days, and with pulmonary in 4-6 weeks. Lastly, the patient has been counseled at length to abstain from tobacco use. She has been instructed to return to the ER for any acute emergencies. DISCHARGE CONDITION: Stable. TIME SPENT ON DISCHARGE: Greater than 30 minutes. Vital Signs/I&Os Vital Signs Date Time Temp Pulse Resp B/P (MAP) Pulse Ox O2 Delivery O2 Flow Rate FiO2 01/30/19 09:54 142/90 01/30/19 09:54 78 01/30/19 08:00 99.5 20 96 01/26/19 04:00 30 01/26/19 03:29 BIPAP/CPAP I&O- Last 24 Hours up to 6 AM 01/30/19 06:00 Intake Total 680 ml Output Total 1000 ml Balance -320 ml Laboratory Data Labs 24H Laboratory Tests 2 01/30/19 05:22: Nucleated Red Blood Cells % (auto) 0.0, Anion Gap 7L, Glomerular Filtration Rate 16.9L, Blood Urea Nitrogen 30#H, Creatinine 2.92H, Sodium Level 139, Potassium Level 3.6, Chloride Level 104, Carbon Dioxide Level 28, Calcium Level 7.3L, Aspartate Amino Transf (AST/SGOT) 11, Alanine Aminotransferase (ALT/SGPT) 15, Alkaline Phosphatase 73, Total Bilirubin 0.7, Total Protein 5.2L, Albumin 3.0L, Albumin/Globulin Ratio 1.36 01/30/19 06:55: Bedside Glucose (Misc Panel) 75L 01/30/19 07:14: Bedside Glucose (Misc Panel) 107 CBC/BMP Laboratory Tests 01/30/19 05:22 Red Blood Count 4.70, Mean Corpuscular Volume 90.4, Mean Corpuscular Hemoglobin 27.4, Mean Corpuscular Hemoglobin Concent 30.4 L, Red Cell Distribution Width 23.4 H, Calcium Level 7.3 L, Aspartate Amino Transf (AST/SGOT) 11, Alanine Aminotransferase (ALT/SGPT) 15, Alkaline Phosphatase 73, Total Bilirubin 0.7, Total Protein 5.2 L, Albumin 3.0 L FSBS Laboratory Tests Test 01/30/19 06:55 01/30/19 07:14 Range/Units Bedside Glucose (Misc Panel) 75 107 83-110 MG/DL Microbiology Microbiology 01/25/19 Blood Culture - Final, Complete NO GROWTH AFTER 5 DAYS 01/25/19 Blood Culture - Final, Complete NO GROWTH AFTER 5 DAYS 01/25/19 Respiratory Virus Panel (PCR) ([facility]) - Final, Complete Discharge Medications Scheduled (Incruse Ellipta) 62.5 Mcg/Inh Inh, 1 PUFF INH DAILY, (Reported) (Arielle-Roby) 1 Tab Tab, 1 TAB PO DAILY, (Reported) (Glucerna Shake) 1 Liq Liq, 1 LIQ PO BID Amlodipine Besylate (Amlodipine Besylate) 10 Mg Tab, 10 MG PO DAILY, (Reported) Aspirin (Aspirin EC) 81 Mg Tabec, 81 MG PO 4XWK, (Reported) TAKES ON NON DIALYSIS DAYS, , , SAT, SUN Budesonide/Formoterol (Symbicort 160-4.5 Mcg/Act) 60 Puff/Inhaler Aers, 2 PUFF INH BID, (Reported) Escitalopram Oxalate (Lexapro) 20 Mg Tab, 20 MG PO QHS, (Reported) Levothyroxine Sodium (Synthroid) 137 Mcg Tab, 137 MCG PO DAILY, (Reported) Losartan Potassium (Losartan Potassium) 100 Mg Tab, 100 MG PO DAILY, (Reported) Moxifloxacin Hydrochloride (Avelox) 400 Mg Tab, 400 MG PO DAILY@0600 Polynuclear Iron(III)-Oxyhydro (Velphoro) 500 Mg Chw, 500 MG PO WM, (Reported) Prednisone (Prednisone) 10 Mg Tab, 10 MG PO TAPER Take 4 tabs daily x 3 days, then 3 tabs daily x 3 days, then 2 tabs daily x 3 days, then 1 tab daily x 3 days and stop Scheduled PRN Albuterol Sulfate (Albuterol Sulfate) 2.5 Mg/3 Ml Nebu, 2.5 MG INH Q4H PRN for SHORTNESS OF BREATH, (Reported) Albuterol Sulfate (Proair Hfa) 108 Mcg/Act Aer, 2 PUFFS INH Q4H PRN for SHORTNESS OF BREATH, (Reported) Ipratropium [place] (Atrovent Hfa) 17 Mcg/Act Aer, 2 PUFFS INH QID PRN for SHORTNESS OF BREATH, (Reported) Lorazepam (Lorazepam) 1 Mg Tab, 1 MG PO TID PRN for ANXIETY, (Reported) Allergies Coded Allergies: Lisinopril (Verified Allergy, Severe, tongue swelling, 09/21/18) Codeine (Unverified Adverse Reaction, Unknown, nausea, upset stomach, 01/25/19) KARLIE ENRIQUEZ MD Jan 30, 2019 13:40
--- NOTE | 2019-01-30 15:19 | IPN ---
DATE: 01/30/2019 Mrs. Blackmon is seen this morning on her bedside. She underwent a CT scan of chest with intravenous (IV) contrast yesterday due to abnormal chest x-ray finding. Following IV contrast, she had her dialysis done. CT scan did not show any lung mass, which was suspected on the chest x-ray. The patient continues to have shortness of breath and weakness. She is unable to even get up from the bed. She denies any nausea or vomiting. PHYSICAL EXAMINATION: Temperature 99.5 degrees Fahrenheit, heart rate 78 per minute, respiratory rate 20 per minute, blood pressure 142/90 mm of mercury, and oxygen saturation 96%. Head is atraumatic. She is chronically emaciated with loss of facial fat. She has no oral thrush or ulcers. Heart sounds are regular and lungs with diminished breath sounds and scattered rhonchi. Abdomen soft with large polycystic kidneys palpable, and bowel sounds are present. Extremities have no cyanosis or clubbing. Neurologically, she is at her baseline mentation. Today's labs show WBC count 6.5, hemoglobin 12.9, hematocrit 42.5, platelets 117. Sodium 139, potassium 3.6, CO2 of 28, BUN 30, and creatinine 2.92. PROBLEMS: 1. End-stage renal disease. The patient was dialyzed last evening, and next dialysis will be scheduled for tomorrow. Her volume status is very well compensated. 2. Chronic obstructive pulmonary disease (COPD) and lung mass. She has chronic lung changes with advanced COPD and chronic scarring. CT scan of chest was done with IV contrast due to suspected mass on her chest x-ray; however, CT scan was negative for a mass. I have reviewed the CT scan findings with the patient this morning. 3. Hypertension. Blood pressure is very well controlled on current medications, and no changes are being made today. 4. Generalized weakness and deconditioning. This is another chronic issue due to recurrent hospitalizations and multiple core morbid conditions. The patient needs to get out of bed more often and be active. She just lies in the bed all day. I have discussed with her about possibility for custodial placement; however, she has been declining it.
== END 2019-01-30 14:55 | disposition home health service (06) | DRG 189 ==
LOC: EDBD 08:41 → M ED 08:41 → M ED INP 12:31 → M ICU 14:10 → M PCU 01-26 21:05 → M ICU 01-26 21:21 → M PCU 01-27 00:22
PROVIDERS: ADMIT Internal Medicine; ATTEND Internal Medicine
PROC: 5A1D70Z Performance of Urinary Filtration, Intermittent, Less than 6 Hours Per Day (ICD-10-PCS; 2019-01-26)
PROC: 02HV33Z Insertion of Infusion Device into Superior Vena Cava, Percutaneous Approach (ICD-10-PCS; principal; 2019-01-29)
DX: J96.22 Acute and chronic respiratory failure with hypercapnia (principal); N18.6 End stage renal disease; E43 Unspecified severe protein-calorie malnutrition; J44.1 Chronic obstructive pulmonary disease with (acute) exacerbation; I13.2 Hypertensive heart and chronic kidney disease with heart failure and with stage 5 chronic kidney disease, or end stage renal disease; I50.32 Chronic diastolic (congestive) heart failure; Q61.3 Polycystic kidney, unspecified; Q44.6 Cystic disease of liver; N25.81 Secondary hyperparathyroidism of renal origin; K21.9 Gastro-esophageal reflux disease without esophagitis; E03.9 Hypothyroidism, unspecified; F41.9 Anxiety disorder, unspecified; F32.9 Major depressive disorder, single episode, unspecified; F17.210 Nicotine dependence, cigarettes, uncomplicated; I27.20 Pulmonary hypertension, unspecified; Z79.899 Other long term (current) drug therapy; Z79.82 Long term (current) use of aspirin; D63.1 Anemia in chronic kidney disease; Z96.641 Presence of right artificial hip joint; Z66 Do not resuscitate; E87.5 Hyperkalemia; Z88.5 Allergy status to narcotic agent; Z88.8 Allergy status to other drugs, medicaments and biological substances; R91.8 Other nonspecific abnormal finding of lung field

== ENCOUNTER 2019-02-13 19:45 | Emergency (ER) | payer MEDICARE, MEDICAID ==
[~2019-02-13] VITALS: Ht 157.5 cm; Wt 43.0 kg
[~2019-02-13 19:45] MED LIST changes: -ASPI1TAB PO; -ASPI81CH PO; +ASPI81CH49 PO; +ASPI81TA26 PO; +AVEL1TAB3 PO; +ERYT1OIN26 OD; -ERYT5OPO OD; +GLUCLIQ PO; +KETO0.5S2 OD; -KETO5OPD OD; +PRED-351 PO; -PRED10TA PO
[2019-02-13 20:51] LABS: BASO % 0.2 % (0.0-1.0); EOS # 0.2 10^3/uL (0.0-0.50); HEMATOCRIT 37.8 % (36.0-47.0); HEMOGLOBIN 11.3 g/dl (12.0-15.5); LYMPH # 0.6 10^3/uL (1.5-4.5); LYMPH % 3.9 % (24.0-44.0); MEAN CORPUSCULAR HEMOGLOBIN 27.7 pg (27.0-33.0); MEAN CORPUSCULAR HGB CONC 29.9 g/dl (32.0-36.5); MEAN CORPUSCULAR VOLUME 92.6 fl (80.0-96.0); MONO # 0.5 10^3/uL (0.0-0.8); MONO % 3.1 % (0.0-5.0); NEUTROPHILS # 13.4 10^3/uL (1.8-7.7); NEUTROPHILS % 91.5 % (36.0-66.0); PLATELET COUNT, AUTOMATED 117 10^3/uL (150-450); RED BLOOD COUNT 4.08 10^6/uL (4.00-5.40); WHITE BLOOD COUNT 14.6 10^3/uL (4.0-10.0)
[2019-02-13 21:17] LABS: INFLUENZA A AMPLIFICATION NEGATIVE (NEGATIVE); INFLUENZA B AMPLIFICATION NEGATIVE (NEGATIVE)
[2019-02-13 21:27] LABS: ABG BASE EXCESS 2.3 (-2.0-2.0); ABG HCO3 25.8 MEQ/L (22.0-26.0); ABG O2 SATURATION 95.7 % (95.0-99.0); ABG PARTIAL PRESSURE CO2 36.4 mmHg (35.0-45.0); ABG STANDARD HCO3 26.5 MEQ/L (22.0-26.0); ABG pH (ARTERIAL) 7.469 UNITS (7.350-7.450)
--- NOTE | 2019-02-13 22:20 | REP ---
Clinical: Cough and dyspnea . Comparison: 01/27/2019 . Technique: PA and lateral. Findings: The mediastinum and cardiac silhouette are normal. The lung louis demonstrate chronic stable changes without acute consolidation, effusion, or pneumothorax. The skeletal structures are intact and normal. Impression: 1. No acute cardiopulmonary process. Electronically Signed by Colin Mathew MD 02/13/2019 10:18 P
[2019-02-13 22:26] LABS: ALBUMIN 3.1 GM/DL (3.2-5.2); BILIRUBIN,DIRECT 0.2 MG/DL (0.0-0.2); BILIRUBIN,TOTAL 0.6 MG/DL (0.2-1.0); CALCIUM LEVEL 7.3 MG/DL (8.8-10.2); CREATININE FOR GFR 3.64 MG/DL (0.55-1.30); GLOMERULAR FILTRATION RATE 13.1 (>39); MB/CK RELATIVE INDEX 5.33 (< OR =4); POTASSIUM SERUM 5.5 MEQ/L (3.5-5.1); THYROID STIMULATING HORMONE 0.622 uIU/ML (0.358-3.740); TOTAL PROTEIN 5.2 GM/DL (6.4-8.2); TROPONIN I 0.02 NG/ML (< 0.10)
[2019-02-13] MEDS ORDERED: PRED20TA PO (23:56)
[2019-02-14 00:26] VITALS: BP 152/80
--- NOTE | 2019-02-14 08:07 | ECGEPIP ---
Stationary ECG Study 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
== END 2019-02-14 00:27 | disposition home or self-care (01) ==
LOC: M ED 19:45 → EDBD 19:45 → M ED 02-14 00:27
DX: J44.1 Chronic obstructive pulmonary disease with (acute) exacerbation (principal); N18.5 Chronic kidney disease, stage 5; Z99.2 Dependence on renal dialysis; Z72.0 Tobacco use; Z79.82 Long term (current) use of aspirin; Z79.899 Other long term (current) drug therapy; Z88.5 Allergy status to narcotic agent; Z88.8 Allergy status to other drugs, medicaments and biological substances

== ENCOUNTER 2019-02-19 13:30 | Inpatient (IN) | payer MEDICARE, MEDICAID ==
[~2019-02-19] VITALS: Ht 157.5 cm; Wt 38.2 kg
[~2019-02-19 13:30] MED LIST changes: +ASPI1TAB PO; +ASPI81CH PO; -ASPI81CH49 PO; -ASPI81TA26 PO
[2019-02-19 14:42] LABS: INFLUENZA A AMPLIFICATION NEGATIVE (NEGATIVE); INFLUENZA B AMPLIFICATION NEGATIVE (NEGATIVE)
[2019-02-19 14:50] LABS: VENOUS BASE EXCESS -2.5 (-2.0-2.0); VENOUS HCO3 23.5 MEQ/L (23.0-27.0); VENOUS O2 SATURATION 85.1 % (60.0-80.0); VENOUS PARTIAL PRESSURE CO2 45.8 mmHg (38.0-50.0); VENOUS PARTIAL PRESSURE O2 52.6 mmHg (30.0-50.0); VENOUS PH 7.328 UNITS (7.330-7.430); VENOUS STANDARD HCO3 22.1 MEQ/L; VENOUS TOTAL CO2 24.9 MEQ/L (24.0-28.0)
[2019-02-19 14:51] LABS: BASO % 0.1 % (0.0-1.0); EOS % 0.1 % (0.0-3.0); HEMATOCRIT 33.4 % (36.0-47.0); HEMOGLOBIN 10.3 g/dl (12.0-15.5); LYMPH # 0.5 10^3/uL (1.5-4.5); LYMPH % 4.3 % (24.0-44.0); MEAN CORPUSCULAR HEMOGLOBIN 28.7 pg (27.0-33.0); MEAN CORPUSCULAR HGB CONC 30.8 g/dl (32.0-36.5); MONO # 0.5 10^3/uL (0.0-0.8); MONO % 3.9 % (0.0-5.0); NEUTROPHILS # 10.6 10^3/uL (1.8-7.7); NEUTROPHILS % 91.1 % (36.0-66.0); PLATELET COUNT, AUTOMATED 138 10^3/uL (150-450); RED BLOOD COUNT 3.59 10^6/uL (4.00-5.40); WHITE BLOOD COUNT 11.6 10^3/uL (4.0-10.0)
[2019-02-19 15:03] LABS: INR 1.04; PROTHROMBIN TIME 13.7 SECONDS (12.1-14.4)
[2019-02-19 15:27] LABS: ALBUMIN 3.1 GM/DL (3.2-5.2); BILIRUBIN,DIRECT 0.1 MG/DL (0.0-0.2); BILIRUBIN,TOTAL 0.4 MG/DL (0.2-1.0); CALCIUM LEVEL 7.8 MG/DL (8.8-10.2); CREATININE FOR GFR 4.55 MG/DL (0.55-1.30); GLOMERULAR FILTRATION RATE 10.2 (>39); MB/CK RELATIVE INDEX 8.18 (< OR =4); THYROID STIMULATING HORMONE 0.105 uIU/ML (0.358-3.740); TOTAL PROTEIN 5.5 GM/DL (6.4-8.2); TROPONIN I 0.04 NG/ML (< 0.10)
--- NOTE | 2019-02-19 15:29 | REP ---
Clinical: Persistent cough. Comparison: 02/13/2019. Findings: Mediastinum and cardiac silhouette are stable. Lung louis demonstrate chronic interstitial changes. Subtle right basilar atelectasis cannot be excluded. No further consolidation, obvious effusion, or pneumothorax. Skeletal structures demonstrate stable osteopenia and degenerative change. Impression: Trace right basilar atelectasis. Electronically Signed by Colin Mathew MD 02/19/2019 03:20 P
[2019-02-19] MEDS ORDERED: CREO24CA PO (16:02)
[2019-02-19] MEDS ORDERED: GLUCLIQ7 PO (16:04)
[2019-02-19] MEDS ORDERED: ALBUTEROL SULFATE 2.5 MG/0.5 ML INH NEB SOLN INH SCH (16:30)
[2019-02-19] MEDS ORDERED: methylPREDNISolone INJ 125 MG/2 ML VIAL (J2930) IV ONE (16:30)
[2019-02-19] MEDS ORDERED: IPRATROPIUM 0.5MG/ALBUTEROL 2.5MG INH SOL UD 3ML (DUONEB)(J7620) NEB PRN (18:00)
[2019-02-19] MEDS ORDERED: ALBUTEROL 90 MCG/ACT 8GM HFA INHALER INH PRN (18:00)
[2019-02-19] MEDS ORDERED: LORazepam 1 MG TAB PO PRN (18:00)
[2019-02-19] MEDS: CREON-24 CAPSULE PO SCH (18:00)
[2019-02-19] MEDS: SUCROFERRIC OXYHYDROXIDE 500MG CHEW TAB (VELPHORO) PO SCH (18:00)
[2019-02-19] MEDS ORDERED: ALBUTEROL SULFATE 2.5 MG/0.5 ML INH NEB SOLN INH PRN (18:00)
[2019-02-19] MEDS ORDERED: IPRATROPIUM 0.02% SOLN 0.5MG/2.5 ML NEB INH PRN (18:00)
--- NOTE | 2019-02-19 18:21 | HPE ---
DATE OF ADMISSION: 02/19/2019 68-year-old female with a past medical history of advanced oxygen dependent chronic obstructive pulmonary disease (COPD) requiring 2 liters of nasal cannula, history of chronic active tobacco abuse, end stage renal disease on hemodialysis Tuesday, Tuesday, Tuesday and chronic diastolic heart failure, who presents to the emergency room with cough productive of yellow sputum for the past 3 days, along with generalized weakness and decreased appetite so she came to the emergency room for evaluation. She was due for dialysis today but she felt too weak to go so she came to the emergency room. In the emergency room, the patient was started on nebulizer treatments and was given 125 of Solu-Medrol. Chest x-ray showed trace bibasilar atelectasis, so no antibiotics were given at that time. When I saw the patient, she looked emaciated and cachectic and definitely had a productive cough. Her vitals were stable, afebrile. She denies any subjective feeling of fever, aches or chills, but does have an 11.6 thousand white count. The patient will be admitted for further management. PAST MEDICAL HISTORY: Again, past medical history of: 1. Hypertension. 2. Chronic diastolic heart failure. 3. Advanced oxygen dependent chronic obstructive pulmonary disease (COPD) requiring 2 liters of nasal cannula. 4. History of hypothyroidism. 5. Chronic active tobacco abuse. 6. Hypertension. ALLERGIES: She has drug allergies to CODEINE and LISINOPRIL. FAMILY HISTORY: Noncontributory. SOCIAL HISTORY: The patient still smokes approximately five cigarettes a day, but has been more than a pack a day for many years. Denies alcohol or illicit drugs. MEDICATIONS: She takes at home: - albuterol as needed - amlodipine 10 mg by mouth daily - aspirin 81 mg by mouth four times a week - Symbicort 160/4.5 two puffs inhaled twice a day - citalopram 20 mg by mouth at bedtime - Glucerna one can by mouth twice a day - Incruse Ellipta one puff inhaled daily - ipratropium bromide two puffs inhaled four times a day as needed - Synthroid 137 mcg by mouth daily - lorazepam 1 mg by mouth three times a day as needed - losartan 100 mg by mouth daily - pancreatic enzymes one capsule by mouth three times a day - Renovite one tablet by mouth daily - polynuclear iron 500 mg by mouth twice a week REVIEW OF SYSTEMS: Negative for all ten major systems except what is mentioned in the history of present illness. PHYSICAL EXAMINATION: VITAL SIGNS: Blood pressure 175/100, pulse 91 and regular, respiratory rate is 20, temperature 97.8, oxygen saturation is 97% on 2 liters nasal cannula. Head is atraumatic, normocephalic. Neck is supple with no jugular venous distention (JVD). Lungs have diminished breath sounds. S1, S2 audible. No murmurs appreciated. Abdomen is soft. Positive bowel sounds. No pedal edema. Skin is intact. Neurologic examination, the patient is awake, alert and oriented times three. Left arm fistula has a positive thrill. LABORATORIES: WBC 11.6, hemoglobin 10.3, hematocrit 33.4, platelets 138,000. Sodium 143, potassium 5.0, chloride 107, CO2 of 25, BUN 83, creatinine 4.55, glucose is 93, troponin is 0.04. Venous blood gas showed pH of 7.328, PCO2 is 45.8. Influenza A and B are negative. IMPRESSION: 1. Clinical pneumonia. 2. End stage renal disease. PLAN: The patient is to be admitted to the medical/surgical floor. We will start the patient on IV Zosyn 2.25 mg IV every 12 hours. If she makes any sputum, we will try to get a sputum culture. The patient is due for dialysis today. Dr. Mena has been placed on consult and the patient will be dialyzed today as scheduled. We will continue her preadmission medications and continue her care on the medical/surgical floor.
[2019-02-19] MEDS: SYMBICORT 160/4.5MCG INHALER 6GM INH SCH (21:11)
[2019-02-19] MEDS: PIPERACILLIN/TAZOBACTAM SOD 2.25 GM in D5W MINI-BAG PLUS 50 ML IV SCH (21:32)
[2019-02-19] MEDS: ESCITALOPRAM OXALATE 10 MG TAB (LEXAPRO) PO SCH (21:32)
[2019-02-19 22:00] VITALS: BP 158/80
[2019-02-20 06:00] VITALS: BP 160/80
[2019-02-20] MEDS: LEVOTHYROXINE 137MCG TABLET (0.137MG) PO SCH (06:14)
[2019-02-20 06:54] LABS: BASO % 0.1 % (0.0-1.0); HEMATOCRIT 27.2 % (36.0-47.0); HEMOGLOBIN 8.4 g/dl (12.0-15.5); LYMPH # 0.4 10^3/uL (1.5-4.5); LYMPH % 5.7 % (24.0-44.0); MEAN CORPUSCULAR HEMOGLOBIN 27.6 pg (27.0-33.0); MEAN CORPUSCULAR HGB CONC 30.9 g/dl (32.0-36.5); MEAN CORPUSCULAR VOLUME 89.5 fl (80.0-96.0); MONO # 0.1 10^3/uL (0.0-0.8); MONO % 1.8 % (0.0-5.0); NEUTROPHILS # 6.7 10^3/uL (1.8-7.7); NEUTROPHILS % 90.9 % (36.0-66.0); RED BLOOD COUNT 3.04 10^6/uL (4.00-5.40); WHITE BLOOD COUNT 7.4 10^3/uL (4.0-10.0)
[2019-02-20 07:10] LABS: PLATELET COUNT, AUTOMATED 93 10^3/uL (150-450)
[2019-02-20] MEDS: SYMBICORT 160/4.5MCG INHALER 6GM INH SCH ×2 (07:13→20:24)
[2019-02-20 07:18] LABS: CALCIUM LEVEL 7.7 MG/DL (8.8-10.2); CREATININE FOR GFR 3.25 MG/DL (0.55-1.30); POTASSIUM SERUM 4.7 MEQ/L (3.5-5.1)
[2019-02-20] MEDS: IPRATROPIUM 0.5MG/ALBUTEROL 2.5MG INH SOL UD 3ML (DUONEB)(J7620) NEB SCH ×4 (08:00→20:00)
[2019-02-20] MEDS: ASPIRIN 81 MG ENTERIC TAB PO SCH (08:07)
[2019-02-20] MEDS: CREON-24 CAPSULE PO SCH ×3 (08:08→17:35)
[2019-02-20] MEDS: amLODIPine 10 MG TAB PO SCH (08:08)
[2019-02-20] MEDS: PIPERACILLIN/TAZOBACTAM SOD 2.25 GM in D5W MINI-BAG PLUS 50 ML IV SCH ×2 (08:08→21:17)
[2019-02-20] MEDS: SUCROFERRIC OXYHYDROXIDE 500MG CHEW TAB (VELPHORO) PO SCH ×3 (08:08→17:35)
[2019-02-20] MEDS: LOSARTAN 50 MG TAB PO SCH (08:08)
--- NOTE | 2019-02-20 08:25 | IPNPDOC ---
Date Seen The patient was seen on 02/20/19. Progress Note SUBJECTIVE: Respiratory panel: human metapneumovirus. cxr: right basilar atelectasis afebrile no chills overnight. on incentive spirometry and on maintenance hemodialysis yesterday. slight cough thick sputum. walks usually 15 to 20 fee twithout issues. PHYSICAL EXAMINATION: VITAL SIGNS: PLS SEE BELOW. General :cachectic edentulous multiple ecchymotic areas on b/l hands and arms appears older than stated age. Head is atraumatic, normocephalic. Neck is supple with no jugular venous distention (JVD). Lungs have diminished breath sounds. bilateral coarse rhonchi. S1, S2 audible. No murmurs appreciated. Abdomen is soft. Positive bowel sounds. No pedal edema. Skin is intact. LABORATORY DATA, IMAGING STUDIES, MICROBIOLOGY: PLS SEE BELOW ASSESSMENT AND PLAN: 68-year-old female with a past medical history of advanced oxygen dependent chronic obstructive pulmonary disease (COPD) requiring 2 liters of nasal cannula, history of chronic active tobacco abuse, end stage renal disease on hemodialysis Tuesday, Tuesday, Tuesday and chronic diastolic heart failure, who presents to the emergency room with cough productive of yellow sputum for the past 3 days, along with generalized weakness and decreased appetite so she came to the emergency room for evaluation. She was due for dialysis today but she felt too weak to go so she came to the emergency room. In the emergency room, the fredrick diaz was started on nebulizer treatments and was given 125 of Solu-Medrol. Chest x-ray showed trace bibasilar atelectasis, so no antibiotics were given at that time. When I saw the patient, she looked emaciated and cachectic and definitely had a productive cough. Her vitals were stable, afebrile. She denies any subjective feeling of fever, aches or chills, but does have an 11.6 thousand white count. The patient will be admitted for further management. Clinical pneumonia. Respiratory panel: human metapneumovirus similar to common cold. The patient is to be admitted to the medical/surgical floor. We will start the patient on IV Zosyn 2.25 mg IV every 12 hours. If she makes any sputum, we will try to get a sputum culture. nebs Protein calorie malnutrition. nutrition consult Hypertension. resumed home meds Chronic diastolic heart failure. euvolemic dependent on dialysis Advanced oxygen dependent chronic obstructive pulmonary disease (COPD) requiring 2 liters of nasal cannula. History of hypothyroidism. on synthroid Chronic active tobacco abuse. tobacco cessation counselling ESRD on maintenance hemodialysis The patient is due for dialysis today. Dr. Mena has been placed on consult and the patient will be dialyzed today as scheduled. We will continue her preadmission medications and continue her care on the medical/surgical floor. disposition: await physical therapy clearance and pending clinical improvement. VS, I&O, 24H, Fishbone Vital Signs/I&O Vital Signs Date Time Temp Pulse Resp B/P (MAP) Pulse Ox O2 Delivery O2 Flow Rate FiO2 02/20/19 08:08 160/80 02/20/19 08:08 83 02/20/19 06:00 99.8 20 92 3.0 02/19/19 18:15 Nasal Cannula I&O- Last 24 Hours up to 6 AM 02/20/19 06:00 Intake Total 1080 ml Output Total 1500 ml Balance -420 ml Laboratory Data 24H LABS Laboratory Tests 2 02/19/19 14:04: Influenza Type A (RT-PCR) NEGATIVE, Influenza Type B (RT-PCR) NEGATIVE 02/19/19 14:32: Immature Granulocyte % (Auto) 0.5, White Blood Count 11.6H, Red Blood Count 3.59L, Hemoglobin 10.3L, Hematocrit 33.4L, Mean Corpuscular Volume 93.0, Mean Corpuscular Hemoglobin 28.7, Mean Corpuscular Hemoglobin Concent 30.8L, Red Cell Distribution Width 22.4H, Platelet Count 138L, Neutrophils (%) (Auto) 91.1H, Lymphocytes (%) (Auto) 4.3L, Monocytes (%) (Auto) 3.9, Eosinophils (%) (Auto) 0.1, Basophils (%) (Auto) 0.1, Neutrophils # (Auto) 10.6H, Lymphocytes # (Auto) 0.5L, Monocytes # (Auto) 0.5, Eosinophils # (Auto) 0.0, Basophils # (Auto) 0.0, Nucleated Red Blood Cells % (auto) 0.0, Prothrombin Time 13.7, Prothromb Time International Ratio 1.04, Blood Gas Bicarbonate Standard 22.1, Venous Blood pH 7.328L, Venous Blood Partial Pressure CO2 45.8, Venous Blood Partial Pressure O2 52.6H, Venous Blood Total Carbon Dioxide 24.9, Venous Blood HCO3 23.5, Venous Bl ood Oxygen Saturation 85.1H, Venous Blood Base Excess -2.5L, Anion Gap 10, Glomerular Filtration Rate 10.2L, Lactic Acid Level 2.0, Calcium Level 7.8L, Aspartate Amino Transf (AST/SGOT) 22, Alanine Aminotransferase (ALT/SGPT) 25, Alkaline Phosphatase 92, Total Bilirubin 0.4, Direct Bilirubin 0.1, Total Creatine Kinase 33, Creatine Kinase MB 3.0, Creatine Kinase MB Relative Index 8.18H, Troponin I 0.04, FT-Oca-G-Type Natriuretic Peptide [id number], Total Protein 5.5L, Albumin 3.1L, Albumin/Globulin Ratio 1.29, Thyroid Stimulating Hormone (TSH) 0.105L 02/20/19 06:33: Immature Granulocyte % (Auto) 1.5, White Blood Count 7.4, Red Blood Count 3.04L, Hemoglobin 8.4L, Hematocrit 27.2L, Mean Corpuscular Volume 89.5, Mean Corpuscular Hemoglobin 27.6, Mean Corpuscular Hemoglobin Concent 30.9L, Red Cell Distribution Width 21.9H, Platelet Count 93L, Neutrophils (%) (Auto) 90.9H, Lymp hocytes (%) (Auto) 5.7L, Monocytes (%) (Auto) 1.8, Eosinophils (%) (Auto) 0.0, Basophils (%) (Auto) 0.1, Neutrophils # (Auto) 6.7, Lymphocytes # (Auto) 0.4L, Monocytes # (Auto) 0.1, Eosinophils # (Auto) 0.0, Basophils # (Auto) 0.0, Nucleated Red Blood Cells % (auto) 0.0, Anion Gap 8, Glomerular Filtration Rate 15.0L, Calcium Level 7.7L, Immature Platelet Fraction 2.5, Blood Urea Nitrogen 57H, Creatinine 3.25H, Sodium Level 141, Potassium Level 4.7, Chloride Level 106, Carbon Dioxide Level 27 CBC/BMP Laboratory Tests 02/19/19 14:32 Red Blood Count 3.59 L, Mean Corpuscular Volume 93.0, Mean Corpuscular Hemoglobin 28.7, Mean Corpuscular Hemoglobin Concent 30.8 L, Red Cell D istribution Width 22.4 H, Neutrophils (%) (Auto) 91.1 H, Lymphocytes (%) (Auto) 4.3 L, Monocytes (%) (Auto) 3.9, Eosinophils (%) (Auto) 0.1, Basophils (%) (Auto) 0.1, Neutrophils # (Auto) 10.6 H, Lymphocytes # (Auto) 0.5 L, Monocytes # (Auto) 0.5, Eosinophils # (Auto) 0.0, Basophils # (Auto) 0.0 02/20/19 06:33 Red Blood Count 3.04 L, Mean Corpuscular Volume 89.5, Mean Corpuscular Hemoglobin 27.6, Mean Corpuscular Hemoglobin Concent 30.9 L, Red Cell Distribution Width 21.9 H, Neutrophils (%) (Auto) 90.9 H, Lymphocytes (%) (Auto) 5.7 L, Monocytes (%) (Auto) 1.8, Eosinophils (%) (Auto) 0.0, Basophils (%) (Auto) 0.1, Neutrophils # (Auto) 6.7, Lymphocytes # (Auto) 0.4 L, Monocytes # (Auto) 0.1, Eosinophils # (Auto) 0.0, Basophils # (Auto) 0.0, Calcium Level 7.7 L Microbiology Microbiology 02/19/19 Blood Culture, Received Pending 02/19/19 Blood Culture, Received Pending 02/19/19 Respiratory Virus Panel (PCR) ([facility]) - Final, Complete Human Metapneumovirus FELIX ALVES MD Feb 20, 2019 08:15
--- NOTE | 2019-02-20 10:09 | ER ---
DATE OF CONSULTATION: 02/19/2019 CONSULTATION FOR: Dr. Janny Macias REASON FOR CONSULTATION: Shortness of breath in this lady with end-stage renal disease. HISTORY OF PRESENT ILLNESS: Mrs. Blackmon is a 68-year-old female with multiple chronic medical problems, including advanced oxygen-dependent lung disease, end-stage renal disease, chronic failure to thrive, history of congestive heart failure, and hypertension. She has been admitted to [facility] frequently with shortness of breath due to noncompliance and multiple comorbid conditions. She missed her dialysis again today and came to the emergency room with shortness of breath. She was found to have chronic obstructive pulmonary disease (COPD) exacerbation, acute bronchitis possibly, and volume overload. She is quite hypoxic and is in need for urgent dialysis. Nephrology consultation was requested. The patient is seen in the emergency room. PAST MEDICAL AND SURGICAL HISTORY: Significant for: 1. End-stage renal disease secondary to polycystic kidney disease. 2. Hypertension. 3. Advanced COPD on home oxygen. 4. Hypothyroidism. 5. History of chronic smoking. ALLERGIES: She has allergy to CODEINE and LISINOPRIL. MEDICATIONS: Her home medications include: - albuterol nebulizer as needed - amlodipine 10 mg daily - aspirin 81 mg daily - Symbicort inhaler 160/4.5 mcg two puffs twice a day - citalopram 20 mg at bedtime - Incruse Ellipta one puff daily - Synthroid 137 mcg daily - lorazepam 1 mg three times a day as needed for anxiety - losartan 100 mg daily - pancreatic enzymes three times a day - Arielle-Roby one tablet daily PERSONAL AND SOCIAL HISTORY: The patient lives with her family. She has history of chronic smoking but no alcohol or drug use. She has cut down her smoking significantly. FAMILY HISTORY: Is significant for polycystic kidney disease and end-stage renal disease. Her daughter is also on dialysis. REVIEW OF SYSTEMS: The patient denies any fever or chills. She is quite short of breath. Ears, nose, and throat are unremarkable. Cardiovascular system is significant for congestive heart failure with volume overload. She denies any leg edema or chest pain. Respiratory system is significant for end-stage lung disease. She has chronic heavy smoking. She has cough and wheezing, which is obvious. Gastrointestinal (GI) system is significant for poor appetite but denies any vomiting or diarrhea. Genitourinary () system is negative for dysuria or hematuria. She has end-stage renal disease secondary to polycystic kidneys. Musculoskeletal system is significant for generalized weakness and difficulty ambulating. Neurological system is negative for seizures or stroke. Hematological system is negative for chronic anticoagulation. Endocrine system is significant for hypothyroidism, and there is no history of diabetes. Skin is negative for rash or ulcers. PHYSICAL EXAMINATION: Elderly, quite emaciated female lying in the bed. She weighs only about for 37 kg. Her temperature is 97.6 degrees Fahrenheit, heart rate 94 per minute, and respiratory rate 22 per minute. Blood pressure 175/88 mmHg and oxygen saturation 97% on 2 liters oxygen. Her head is atraumatic. There is loss of facial fat and muscles. She is quite emaciated and malnourished. There is no oral thrush or ulcers. Neck veins are mildly distended, and there is no abnormal cervical lymph nodes. Heart sounds are somewhat tachycardiac but regular. There is no pericardial friction rub. Lungs: Have bilateral wheezing and rales at bases. Abdomen is soft, large polycystic kidneys and liver are palpable. These are nontender, and bowel sounds are present. Extremities: Have no cyanosis or clubbing. She has an AV fistula in her left arm. Neurologically, she is awake, at her baseline mentation, and without a focal deficit. LABORATORY DATA: WBC count is 11.6, hemoglobin 10.3, and hematocrit 33.4. Platelets 138. Sodium 143, potassium 5.0, CO2 26, BUN 83, and creatinine 4.55. Lactic acid 2.0 and calcium 7.8. A BNP level is 58,354. Total protein 5.5 and albumin 3.1. Chest x-ray done in the emergency room showed right basilar atelectasis and no significant pleural effusion. PROBLEMS: 1. Shortness of breath. This is most likely multifactorial. She has COPD exacerbation and possibly some volume overload. We will dialyze her today and try to correct her volume status as much as she can tolerate. She usually does not tolerate more than 1.5 liters fluid removal, which is significant for her body size. 2. End-stage renal disease. The patient missed her dialysis today as an outpatient. We will plan to dialyze her this afternoon. 3. Hypertension. Blood pressure is quite high, which is probably related to her difficulty breathing and distress. We will dialyze her and remove fluid, which is also likely to help with improvement in her blood pressure. I would suggest to continue her home medications, and we will make adjustments after dialysis if needed. 4. Chronic obstructive pulmonary disease and acute bronchitis. The patient should be treated with nebulizers and possible antibiotic coverage. I have discussed with her once again about need for quitting smoking. She has cut down significantly. However, she still smokes. Thank you for involving me in the care of Mrs. Blackmon. I will follow her along with you.
[2019-02-20 14:00] VITALS: BP 138/80
--- NOTE | 2019-02-20 15:20 | IPN ---
DATE: 02/20/2019 Mrs. Blackmon is seen this morning on her bedside. She was admitted last evening with shortness of breath and generalized weakness. She is feeling much better today as she was dialyzed last evening and her dyspnea has improved. She denies any fever, chills, nausea or vomiting. PHYSICAL EXAMINATION: Temperature 99.8 degrees Fahrenheit, heart rate 82 per minute and respiratory rate 20 per minute. Blood pressure 160/80 mmHg and oxygen saturation 92% on 2 liters oxygen. Head is atraumatic. Neck is supple and without JVD or thyroid enlargement. She is not in any distress today. Lungs have diminished breath sounds and heart sounds are regular. Abdomen: Soft, large polycystic kidneys are easily palpable and they are nontender. Bowel sounds are normal. Extremities have no cyanosis or clubbing. Left arm AV fistula is patent. Neurologically, she is awake, alert and at her baseline mentation. Today's labs show WBC count 7.4, hemoglobin 8.4 and hematocrit 27.2. Platelets 93,000. Sodium 141, potassium 4.7, CO2 27, BUN 57 and creatinine 3.25. Calcium 7.7. PROBLEMS: 1. Shortness of breath. Her dyspnea has improved significantly. She was dialyzed last evening and we will try to take off about 1.5 liters of fluid. She did tolerate fluid removal reasonably well. 2. End-stage renal disease. The patient was dialyzed last evening and her electrolytes and volume status are now stable. We will plan on dialyzing her again tomorrow. 3. Anemia. She does not seem to have any acute blood loss. Anemia has worsened since yesterday. Probably, she was hemodialysis-concentrated due to congestive heart failure (CHF). I would suggest to monitor her complete blood count (CBC) and recheck it tomorrow morning. There is no emergent indication for a transfusion at this point. 4. Hypertension. Blood pressure is reasonable and we will continue with current antihypertensive medications. 5. Chronic obstructive pulmonary disease (COPD) and possible bronchitis. She remains on nebulizers and antibiotics. Her symptoms have improved significantly.
[2019-02-20] MEDS: ESCITALOPRAM OXALATE 10 MG TAB (LEXAPRO) PO SCH (21:17)
--- NOTE | 2019-02-20 21:51 | ECGEPIP ---
Stationary ECG Study [facility] - ED Test Date: 2019-02-19 Pat Name: CHIQUITA FELIPE Department: Room: - Gender: F C Python Developer: pmo : [id number] Requested By: Jennifer Mendoza Order Number: [id number] Reading MD: Julio Grace Measurements Intervals [place] Rate: 88 P: 83 DC: 125 QRS: -62 QRSD: 80 T: 58 QT: 355 QTc: 430 Interpretive Statements SINUS RHYTHM LEFT AXIS DEVIATION POOR R WAVE PROGRESSION SIMILAR TO 02/13/19 Electronically Signed On 02-20-2019 21:50:50 EDT by Julio Grace
[2019-02-20 22:00] VITALS: BP 142/83
[2019-02-21] MEDS: IPRATROPIUM 0.5MG/ALBUTEROL 2.5MG INH SOL UD 3ML (DUONEB)(J7620) NEB SCH ×7 (03:43→23:49)
[2019-02-21] MEDS: LEVOTHYROXINE 137MCG TABLET (0.137MG) PO SCH (05:38)
[2019-02-21 06:00] VITALS: BP 148/78
[2019-02-21] MEDS: amLODIPine 10 MG TAB PO SCH (06:39)
[2019-02-21] MEDS: CREON-24 CAPSULE PO SCH ×3 (06:39→18:22)
[2019-02-21] MEDS: LOSARTAN 50 MG TAB PO SCH (06:40)
[2019-02-21] MEDS: PIPERACILLIN/TAZOBACTAM SOD 2.25 GM in D5W MINI-BAG PLUS 50 ML IV SCH (06:40)
[2019-02-21 07:17] LABS: BASO % 0.2 % (0.0-1.0); EOS # 0.1 10^3/uL (0.0-0.50); EOS % 1.1 % (0.0-3.0); HEMATOCRIT 28.6 % (36.0-47.0); HEMOGLOBIN 8.7 g/dl (12.0-15.5); LYMPH % 17.6 % (24.0-44.0); MEAN CORPUSCULAR HGB CONC 30.4 g/dl (32.0-36.5); MONO # 0.3 10^3/uL (0.0-0.8); MONO % 5.5 % (0.0-5.0); NEUTROPHILS % 74.3 % (36.0-66.0); PLATELET COUNT, AUTOMATED 111 10^3/uL (150-450); RED BLOOD COUNT 3.11 10^6/uL (4.00-5.40); WHITE BLOOD COUNT 5.4 10^3/uL (4.0-10.0)
[2019-02-21 07:32] LABS: CALCIUM LEVEL 7.4 MG/DL (8.8-10.2); CREATININE FOR GFR 4.21 MG/DL (0.55-1.30); GLOMERULAR FILTRATION RATE 11.1 (>39); POTASSIUM SERUM 4.6 MEQ/L (3.5-5.1)
[2019-02-21] MEDS: SUCROFERRIC OXYHYDROXIDE 500MG CHEW TAB (VELPHORO) PO SCH ×3 (07:33→18:22)
[2019-02-21] MEDS: SYMBICORT 160/4.5MCG INHALER 6GM INH SCH ×2 (07:40→20:35)
--- NOTE | 2019-02-21 08:50 | IPNPDOC ---
Date Seen The patient was seen on 02/21/19. Progress Note SUBJECTIVE: Not passed HSE. Pt down to 3liters o2 with slight improvement in sob on q4h nebs. pt has audible wheezing with new copd exacerbation. pt requesting regular diet with bmi 15, hl7 developer also consulted. Respiratory panel: human metapneumovirus. cxr: right basilar atelectasis afebrile no chills overnight. on incentive spirometry and on maintenance hemodialysis mwf. slight cough thick sputum. walks usually 15 to 20 feet without issues. PHYSICAL EXAMINATION: VITAL SIGNS: PLS SEE BELOW. General :cachectic edentulous multiple ecchymotic areas on b/l hands and arms appears older than stated age. Head is atraumatic, normocephalic. Neck is supple with no jugular venous distention (JVD). Lungs have diminished breath sounds. bilateral coarse rhonchi. S1, S2 audible. No murmurs appreciated. Abdomen is soft. Positive bowel sounds. No pedal edema. Skin is intact. LABORATORY DATA, IMAGING STUDIES, MICROBIOLOGY: PLS SEE BELOW ASSESSMENT AND PLAN: 68-year-old female with a past medical history of advanced oxygen dependent chronic obstructive pulmonary disease (COPD) requiring 2 liters of nasal cannula, history of chronic active tobacco abuse, end stage renal disease on hemodialysis Tuesday, Tuesday, Tuesday and chronic diastolic heart failure, who presents to the emergency room with cough productive of yellow sputum for the past 3 days, along with generalized weakness and decreased appetite so she came to the emergency room for evaluation. She was due for dialysis today but she felt too weak to go so she came to the emergency room. In the emergency room, the p atient was started on nebulizer treatments and was given 125 of Solu-Medrol. Chest x-ray showed trace bibasilar atelectasis, so no antibiotics were given at that time. When I saw the patient, she looked emaciated and cachectic and definitely had a productive cough. Her vitals were stable, afebrile. She denies any subjective feeling of fever, aches or chills, but does have an 11.6 thousand white count. The patient will be admitted for further management. SOB Respiratory panel: human metapneumovirus similar to common cold. admitted to the medical/surgical floor. s/p IV Zosyn 2.25 mg IV every 12 hours. cxr: right base atelectasis on incentive spirometry. Protein calorie malnutrition. nutrition consult Hypertension. resumed home meds Chronic diastolic heart failure. euvolemic dependent on dialysis Advanced oxygen dependent chronic obstructive pulmonary disease (COPD) exace rbation with chronic respiratory failure requiring 3liters of nasal cannula.repeat cxr. due to viral infection. start on steroids and continue q4hr nebs. History of hypothyroidism. on synthroid Chronic active tobacco abuse. tobacco cessation counselling ESRD on maintenance hemodialysis The patient is due for dialysis today. Dr. Mena has been placed on consult and the patient will be dialyzed today as scheduled. We will continue her preadmission medications and continue her care on the medical/surgical floor. disposition: await physical therapy clearance and pending clinical improvement. VS, I&O, 24H[facility] Vital Signs/I&O Vital Signs Date Time Temp Pulse Resp B/P (MAP) Pulse Ox O2 Delivery O2 Flow Rate FiO2 02/21/19 06:40 148/78 02/21/19 06:39 78 02/21/19 06:00 99.0 18 100 3.0 02/19/19 18:15 Nasal Cannula I&O- Last 24 Hours up to 6 AM 02/21/19 06:00 Intake Total 1200 ml Balance 1200 ml Laboratory Data 24H LABS Laboratory Tests 2 02/21/19 06:38: Immature Granulocyte % (Auto) 1.3, White Blood Count 5.4, Red Blood Count 3.11L, Hemoglobin 8.7L, Hematocrit 28.6L, Mean Corpuscular Volume 92.0, Mean Corpuscular Hemoglobin 28.0, Mean Corpuscular Hemoglobin Concent 30.4L, Red Cell Distribution Width 21.8H, Platelet Count 111L, Neutrophils (%) (Auto) 74.3H, Lymphocytes (%) (Auto) 17.6L, Monocytes (%) (Auto) 5.5H, Eosinophils (%) (Auto) 1.1, Basophils (%) (Auto) 0.2, Neutrophils # (Auto) 4.0, Lymphocytes # (Auto) 1.0L, Monocytes # (Auto) 0.3, Eosinophils # (Auto) 0.1, Basophils # (Auto) 0.0, Nucleated Red Blood Cells % (auto) 0.0, Anion Gap 9, Glomerular Filtration Rate 11.1L, Blood Urea Nitrogen 75H, Creatinine 4.21H, Sodium Level 141, Potassium Level 4.6, Chloride Level 106, Carbon Dioxide Level 26, Calcium Level 7.4L CBC/BMP Laboratory Tests 02/21/19 06:38 Red Blood Count 3.11 L, Mean Corpuscular Volume 92.0, Mean Corpuscular Hemoglobin 28.0, Mean Corpuscular Hemoglobin Concent 30.4 L, Red Cell Distribution Width 21.8 H, Neutrophils (%) (Auto) 74.3 H, Lymphocytes (%) (Auto) 17.6 L, Monocytes (%) (Auto) 5.5 H, Eosinophils (%) (Auto) 1.1, Basophils (%) (Auto) 0.2, Neutrophils # (Auto) 4.0, Lymphocytes # (Auto) 1.0 L, Monocytes # (Auto) 0.3, Eosinophils # (Auto) 0.1, Basophils # (Auto) 0.0, Calcium Level 7.4 L Microbiology Microbiology 02/19/19 Blood Culture - Preliminary, Resulted No growth after 24 hours . All specim... 02/19/19 Blood Culture - Preliminary, Resulted No growth after 24 hours . All specim... 02/19/19 Respiratory Virus Panel (PCR) ([facility]) - Final, Complete Human Metapneumovirus FELIX ALVES MD Feb 21, 2019 08:34
[2019-02-21] MEDS: predniSONE 20 MG TAB PO SCH ×2 (09:00→22:00)
[2019-02-21] MEDS: OMEPRAZOLE 20 MG CAP PO SCH (09:00)
[2019-02-21] MEDS ORDERED: DARBEPOETIN 100 MCG/0.5 ML *DIALYSIS* SYRINGE (J0882) IV SCH (11:45)
--- NOTE | 2019-02-21 11:48 | IPN ---
DATE: 02/21/2019 Mrs. Blackmon is seen this morning on her bedside during dialysis. She is feeling better, however, has a complaint of pain in her sacral area. She denies any nausea, vomiting, abdominal pain, fever or chills. She does have chronic dyspnea which is at about baseline. PHYSICAL EXAMINATION: Temperature 99 degrees Fahrenheit, heart rate 78 per minute and respiratory rate 18 per minute. Blood pressure 148/78 mmHg and oxygen saturation 100% on 2-3 liters of oxygen. Head is atraumatic. Neck is supple and without jugular venous distention (JVD) or thyroid enlargement. Heart sounds regular. Lungs with diminished breath sounds. Abdomen is soft and large polycystic kidneys are unchanged. Extremities have no cyanosis or clubbing. Neurologically, she is at her baseline mentation. LABORATORY DATA: Today's laboratories show WBC count 5.4, hemoglobin 8.7 and hematocrit 28.6. Sodium 141, potassium 4.6, CO2 26, BUN 75 and creatinine 4.21. PROBLEMS: 1. End-stage renal disease. The patient is being dialyzed today and she is tolerating her dialysis treatment very well. We are trying to remove about 1.5 liters of fluid as tolerated. Electrolytes are stable. 2. Shortness of breath and hypoxemia. She has advanced lung disease due to chronic obstructive pulmonary disease (COPD) and also had mild hypervolemia on admission. Her volume status has now improved and we will try to maintain her euvolemic with dialysis. 1.5 liters of fluid is being removed today. 3. Anemia. Her anemia is stable since initial drop. We will continue to monitor her closely and there is no emergent indication for a transfusion. We will give her Aranesp 100 mcg with next dialysis. We will also add iron studies to her blood work. 4. COPD and bronchitis. The patient seems to be improving and remains on bronchodilators. Antibiotics have been stopped.
--- NOTE | 2019-02-21 12:00 | REP ---
Chest x-ray: Two views. History: Shortness of breath. Comparison chest x-ray: February 19, 2019. Findings: The lungs are well inflated and free of infiltrate. Pleural angles are sharp. Heart size is mildly enlarged unchanged. The aorta is calcific and tortuous. Pulmonary vasculature is not increased. There is some diffuse osteopenia. The patient is profoundly thin. There is an old proximal humeral fracture again noted on the right. Impression: No active disease. Electronically Signed by Manjit Cruz MD 02/21/2019 11:52 A
[2019-02-21 12:02] LABS: PERCENT SATURATION 52.1 % (13.2-45.0)
[2019-02-21 14:00] VITALS: BP 131/80
[2019-02-21] MEDS ORDERED: ACETAMINOPHEN TAB 650MG DOSE (2X325MG) PO PRN (14:30)
[2019-02-21 22:00] VITALS: BP 137/82
[2019-02-21] MEDS: ESCITALOPRAM OXALATE 10 MG TAB (LEXAPRO) PO SCH (22:01)
[2019-02-22] MEDS: IPRATROPIUM 0.5MG/ALBUTEROL 2.5MG INH SOL UD 3ML (DUONEB)(J7620) NEB SCH ×4 (04:00→17:43)
[2019-02-22 06:00] VITALS: BP 139/90
[2019-02-22] MEDS: LEVOTHYROXINE 137MCG TABLET (0.137MG) PO SCH (06:03)
--- NOTE | 2019-02-22 07:26 | IPNPDOC ---
Date Seen The patient was seen on 02/22/19. Progress Note SUBJECTIVE: Pt seen and examined at the bedside. refused PT yesterday due to generalized weakness after hemodialysis Not passed HSE. Pt down to 3liters o2 with slight improvement in sob on q4h nebs. pt has audible wheezing with new copd exacerbation. pt requesting regular diet with bmi 15, snowboarder monitoring weight since pt is eating 100% of her meals and at goal, but should the pt lose weight, nepro supplement.Respiratory panel: human metapneumovirus. cxr: right basilar atelectasis afebrile no chills overnight. on incentive spirometry and on maintenance hemodialysis mwf. slight cough thick sputum. walks usually 15 to 20 feet without issues. PHYSICAL EXAMINATION: VITAL SIGNS: PLS SEE BELOW. General :cachectic edentulous multiple ecchymotic areas on b/l hands and arms appears older than stated age. Head is atraumatic, normocephalic. Neck is supple with no jugular venous distention (JVD). Lungs have diminished breath sounds. coarse breath sounds. ribs exposed S1, S2 audible. No murmurs appreciated. Abdomen is soft. Positive bowel sounds. No pedal edema. Skin is intact. LABORATORY DATA, IMAGING STUDIES, MICROBIOLOGY: PLS SEE BELOW ASSESSMENT AND PLAN: 68-year-old female with a past medical history of advanced oxygen dependent chronic obstructive pulmonary disease (COPD) requiring 2 liters of nasal cannula, history of chronic active tobacco abuse, end stage renal disease on hemodialysis Tuesday, Tuesday, Tuesday and chronic diastolic heart failure, who presents to the emergency room with cough productive of yellow sputum for the past 3 days, along with generalized weakness and decreased appetite so she came to the emergency room for evaluation. She was due for dialysis today but she felt too weak to go so she came to the emergency room. In the emergency room, the patient was started on nebulizer treatments and was given 125 of Solu-Medrol. Chest x-ray showed trace bibasilar atelectasis, so no antibiotics were given at that time. When I saw the patient, she looked emaciated and cachectic and definitely had a productive cough. Her vitals were stable, afebrile. She denies any subjective feeling of fever, aches or chills, but does have an 11.6 thousand white count. The patient will be admitted for further management. SOB Respiratory panel: human metapneumovirus similar to common cold. admitted to the medical/surgical floor. s/p IV Zosyn 2.25 mg IV every 12 hours. cxr: right base atelectasis on incentive spirometry. Protein calorie malnutrition. nutrition consult Hypertension. resumed home meds Chronic diastolic heart failure. euvolemic dependent on dialysis Advanced oxygen dependent chronic obstructive pulmonary disease (COPD) exacerba tion with chronic respiratory failure requiring 3liters of nasal cannula.repeat cxr. due to viral infection. start on steroids and continue q4hr nebs. History of hypothyroidism. on synthroid Chronic active tobacco abuse. tobacco cessation counselling ESRD on maintenance hemodialysis The patient is due for dialysis today. Dr. Mena has been placed on consult and the patient will be dialyzed today as scheduled. We will continue her preadmission medications and continue her care on the medical/surgical floor. disposition: await physical therapy clearance and pending clinical improvement. VS, I&O, 24H, Fishbone Vital Signs/I&O Vital Signs Date Time Temp Pulse Resp B/P (MAP) Pulse Ox O2 Delivery O2 Flow Rate FiO2 02/22/19 06:00 97.7 78 18 139/90 (106) 99 3.0 02/19/19 18:15 Nasal Cannula I&O- Last 24 Hours up to 6 AM 02/22/19 06:00 Intake Total 520 ml Output Total 1500 ml Balance -980 ml Laboratory Data Microbiology Microbiology 02/19/19 Blood Culture - Preliminary, Resulted No Growth after 48 hours. All Specime... 02/19/19 Blood Culture - Preliminary, Resulted No Growth after 48 hours. All Specime... 02/19/19 Respiratory Virus Panel (PCR) ([facility]) - Final, Complete Human Metapneumovirus FELIX ALVES MD Feb 22, 2019 07:26
[2019-02-22] MEDS: SUCROFERRIC OXYHYDROXIDE 500MG CHEW TAB (VELPHORO) PO SCH ×3 (08:29→17:43)
[2019-02-22] MEDS: ASPIRIN 81 MG ENTERIC TAB PO SCH (08:30)
[2019-02-22] MEDS: OMEPRAZOLE 20 MG CAP PO SCH (08:30)
[2019-02-22] MEDS: predniSONE 20 MG TAB PO SCH ×2 (08:33→21:03)
[2019-02-22] MEDS: LOSARTAN 50 MG TAB PO SCH (08:33)
[2019-02-22] MEDS: CREON-24 CAPSULE PO SCH ×3 (08:34→17:44)
[2019-02-22] MEDS: amLODIPine 10 MG TAB PO SCH (08:35)
[2019-02-22] MEDS: SYMBICORT 160/4.5MCG INHALER 6GM INH SCH ×2 (08:41→17:44)
[2019-02-22 09:00] VITALS: BP 136/82
--- NOTE | 2019-02-22 12:02 | IPN ---
DATE OF VISIT: 02/22/2019 Ms. Blackmon is seen this morning on her bedside. She is feeling weak, but reports improved with dyspnea. She is still using oxygen at 2 liters via nasal cannula. She denies any nausea or vomiting. She was dialyzed yesterday which she tolerated well. PHYSICAL EXAMINATION: Temperature 99.3 degrees Fahrenheit, heart rate 88 per minute and respiratory rate 20 per minute. Blood pressure 136/82 mmHg and oxygen saturation 97% on 2 liters oxygen. Head is atraumatic. Neck is supple and without jugular venous distention (JVD) or thyroid enlargement. Lungs have bilateral wheezing and minimal air entry. Heart sounds are regular. Abdomen is soft with large polycystic kidneys, which are palpable but nontender. Extremities have no cyanosis or clubbing. Neurologically she is at her baseline mentation. The patient did not have any new labs today. PROBLEMS: 1. End-stage renal disease. She was dialyzed yesterday and next dialysis will be scheduled for tomorrow. 2. Shortness of breath. She had chronic obstructive pulmonary disease (COPD) exacerbation and mild hypervolemia. Her volume status has improved with dialysis and fluid removal. Her COPD is being treated with nebulizers and oxygen supplementation. She has advanced chronic lung disease. 3. Failure to thrive and generalized weakness. The patient has been doing poorly, but wants to continue with all current care. She does not wish to go to the correction. She has frequent hospitalizations due to frail condition and multiple comorbid conditions. 4. Anemia. Her anemia is stable and will continue to manage with Aranesp once a week.
[2019-02-22 14:00] VITALS: BP 138/85
[2019-02-22] MEDS: ESCITALOPRAM OXALATE 10 MG TAB (LEXAPRO) PO SCH (21:03)
[2019-02-22 22:00] VITALS: BP 120/70
[2019-02-23] MEDS: IPRATROPIUM 0.5MG/ALBUTEROL 2.5MG INH SOL UD 3ML (DUONEB)(J7620) NEB SCH ×7 (00:06→23:09)
[2019-02-23] MEDS: LEVOTHYROXINE 137MCG TABLET (0.137MG) PO SCH (05:45)
[2019-02-23] MEDS: SUCROFERRIC OXYHYDROXIDE 500MG CHEW TAB (VELPHORO) PO SCH ×3 (06:15→18:19)
[2019-02-23] MEDS: OMEPRAZOLE 20 MG CAP PO SCH (06:16)
[2019-02-23] MEDS: CREON-24 CAPSULE PO SCH ×3 (06:16→18:19)
[2019-02-23] MEDS: predniSONE 20 MG TAB PO SCH ×2 (06:16→21:36)
[2019-02-23] MEDS: amLODIPine 10 MG TAB PO SCH (06:17)
[2019-02-23] MEDS: LOSARTAN 50 MG TAB PO SCH (06:17)
[2019-02-23 08:11] LABS: HEMATOCRIT 31.8 % (36.0-47.0); HEMOGLOBIN 9.8 g/dl (12.0-15.5); MEAN CORPUSCULAR HEMOGLOBIN 28.1 pg (27.0-33.0); MEAN CORPUSCULAR HGB CONC 30.8 g/dl (32.0-36.5); MEAN CORPUSCULAR VOLUME 91.1 fl (80.0-96.0); PLATELET COUNT, AUTOMATED 241 10^3/uL (150-450); RED BLOOD COUNT 3.49 10^6/uL (4.00-5.40); WHITE BLOOD COUNT 6.5 10^3/uL (4.0-10.0)
[2019-02-23 08:37] LABS: CALCIUM LEVEL 7.6 MG/DL (8.8-10.2); CREATININE FOR GFR 4.19 MG/DL (0.55-1.30); GLOMERULAR FILTRATION RATE 11.2 (>39); POTASSIUM SERUM 3.2 MEQ/L (3.5-5.1)
[2019-02-23] MEDS: SYMBICORT 160/4.5MCG INHALER 6GM INH SCH ×2 (12:30→20:48)
--- NOTE | 2019-02-23 12:59 | IPNPDOC ---
Date Seen The patient was seen on 02/23/19. Progress Note SUBJECTIVE: Pt seen and examined at the bedside. She has been cleared by physical therapy for discharge home. SOB at baseline per pt. 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 cxr: right basilar atelectasis afebrile no chills overnight. on incentive spirometry and on maintenance hemodialysis mwf. slight cough thick sputum. walks usually 15 to 20 feet without issues. PHYSICAL EXAMINATION: VITAL SIGNS: PLS SEE BELOW. General :cachectic edentulous multiple ecchymotic areas on b/l hands and arms appears older than stated age. Head is atraumatic, normocephalic. Neck is supple with no jugular venous distention (JVD). Lungs have diminished breath sounds. coarse breath sounds. ribs exposed S1, S2 audible. No murmurs appreciated. Abdomen is soft. Positive bowel sounds. No pedal edema. Skin is intact. LABORATORY DATA, IMAGING STUDIES, MICROBIOLOGY: PLS SEE BELOW ASSESSMENT AND PLAN: 68-year-old female with a past medical history of advanced oxygen dependent chronic obstructive pulmonary disease (COPD) requiring 2 liters of nasal cannula, history of chronic active tobacco abuse, end stage renal disease on hemodialysis Tuesday, Tuesday, Tuesday and chronic diastolic heart failure, who presents to the emergency room with cough productive of yellow sputum for the past 3 days, along with generalized weakness and decreased appetite so she came to the emergency room for evaluation. She was due for dialysis today but she felt too weak to go so she came to the emergency room. In the emergency room, the patient was started on nebulizer treatments and was given 125 of Solu-Medrol. Chest x-ray showed trace bibasilar atelectasis, so no antibiotics were given at that time. When I saw the patient, she looked emaciated and cachectic and definitely had a productive cough. Her vitals were stable, afebrile. She denies any subjective feeling of fever, aches or chills, but does have an 11.6 thousand white count. The patient will be admitted for further management. Viral Respiratory Infection Respiratory panel: human metapneumovirus similar to common cold. admitted to the medical/surgical floor. s/p IV Zosyn 2.25 mg IV every 12 hours. cxr: right base atelectasis on incentive spirometry. Protein calorie malnutrition. nutrition consult Hypertension. resumed home meds Chronic diastolic heart failure. euvolemic dependent on dialysis Advanced oxygen dependent chronic obstructive pulmonary disease (COPD) exacerbation with chronic respiratory failure requiring 3liters of nasal cannula.repeat cxr. due to viral infection. start on steroids and continue q4hr nebs. History of hypothyroidism. on synthroid Chronic active tobacco abuse. tobacco cessation counselling ESRD on maintenance hemodialysis The patient is due for dialysis today. Dr. Mena has been placed on consult and the patient will be dialyzed today as scheduled. We will continue her preadmission medications and continue her care on the medical/surgical floor. disposition: passed HSE. DC Tuesday. [facility] Vital Signs/I&O Vital Signs Date Time Temp Pulse Resp B/P (MAP) Pulse Ox O2 Delivery O2 Flow Rate FiO2 02/23/19 09:10 2.0 02/23/19 06:17 144/76 02/23/19 06:17 86 02/22/19 22:00 99.3 20 94 02/19/19 18:15 Nasal Cannula I&O- Last 24 Hours up to 6 AM 02/23/19 05:59 Intake Total 1080 ml Output Total 0 ml Balance 1080 ml Laboratory Data 24H LABS Laboratory Tests 2 02/23/19 08:02: Nucleated Red Blood Cells % (auto) 0.0, Anion Gap 11, Glomerular Filtration Rate 11.2L, Blood Urea Nitrogen 66H, Creatinine 4.19H, Sodium Level 135L, Potassium Level 3.2#L, Chloride Level 98, Carbon Dioxide Level 26, Calcium Level 7.6L CBC/BMP Laboratory Tests 02/23/19 08:02 Red Blood Count 3.49 L, Mean Corpuscular Volume 91.1, Mean Corpuscular He moglobin 28.1, Mean Corpuscular Hemoglobin Concent 30.8 L, Red Cell Distribution Width 20.8 H, Calcium Level 7.6 L Microbiology Microbiology 02/19/19 Blood Culture - Preliminary, Resulted No Growth after 72 hours. All specime... 02/19/19 Blood Culture - Preliminary, Resulted No Growth after 72 hours. All specime... 02/19/19 Respiratory Virus Panel (PCR) ([facility]) - Final, Complete Human Metapneumovirus FELIX ALVES MD Feb 23, 2019 12:55
[2019-02-23 14:00] VITALS: BP 127/77
--- NOTE | 2019-02-23 17:16 | IPN ---
DATE: 02/23/2019 Mrs. Blackmon is seen this morning on her bedside during hemodialysis. She is feeling better and is currently being dialyzed. She denies any nausea or vomiting. She has chronic dyspnea and remains on 2 liters of oxygen. PHYSICAL EXAMINATION: Temperature is 98.9 degrees Fahrenheit, heart rate 80 per minute and respiratory rate 18 per minute. Blood pressure 127/77 mmHg and oxygen saturation 98% on 2 liters oxygen. She is emaciated and malnourished chronically. Head is atraumatic and neck veins are not abnormally distended. Heart sounds are irregular in rhythm and lungs with diminished breath sounds bilaterally. Abdomen: Soft with large polycystic kidneys and bowel sounds are present. Extremities: Have no cyanosis or clubbing. Today's labs show WBC count 6.5, hemoglobin 9.8 and hematocrit 31.8. Platelets 241. Sodium 135, potassium 3.2, BUN 66 and creatinine 4.19. PROBLEM #1: End-stage renal disease. The patient is being dialyzed today, and she is tolerating her dialysis treatment very well. PROBLEM #2: Hypokalemia. I feel that there is probably a lab error. She is not expected to have low potassium. We are dialyzing her with high potassium today and her electrolytes should be repeated again tomorrow morning. PROBLEM #3: Hypertension. Blood pressure remains stable and no medication changes are being made. PROBLEM #4: Anemia. Her anemia is also stable at present. We will continue to manage it with dialysis. PROBLEM #5: Chronic obstructive pulmonary disease (COPD). The patient has advanced lung disease and remains at about baseline. She continues with oxygen supplementation and bronchodilator nebulizers.
[2019-02-23] MEDS: ESCITALOPRAM OXALATE 10 MG TAB (LEXAPRO) PO SCH (21:36)
[2019-02-23 22:00] VITALS: BP 122/79
[2019-02-24] MEDS: IPRATROPIUM 0.5MG/ALBUTEROL 2.5MG INH SOL UD 3ML (DUONEB)(J7620) NEB SCH ×3 (03:34→11:50)
[2019-02-24 06:00] VITALS: BP 150/81
[2019-02-24] MEDS: LEVOTHYROXINE 137MCG TABLET (0.137MG) PO SCH (06:35)
[2019-02-24 07:27] LABS: ALBUMIN 3.1 GM/DL (3.2-5.2); CREATININE FOR GFR 2.9 MG/DL (0.55-1.30); GLOMERULAR FILTRATION RATE 17.1 (>39); PHOSPHORUS LEVEL 2.2 MG/DL (2.5-4.9)
[2019-02-24] MEDS: SYMBICORT 160/4.5MCG INHALER 6GM INH SCH (07:49)
[2019-02-24 08:45] VITALS: BP 143/86
[2019-02-24] MEDS: CREON-24 CAPSULE PO SCH ×2 (09:37→12:16)
[2019-02-24] MEDS: SUCROFERRIC OXYHYDROXIDE 500MG CHEW TAB (VELPHORO) PO SCH ×2 (09:37→12:16)
[2019-02-24] MEDS: predniSONE 20 MG TAB PO SCH (10:00)
[2019-02-24 10:01] VITALS: BP 143/86
[2019-02-24] MEDS: amLODIPine 10 MG TAB PO SCH (10:01)
[2019-02-24] MEDS: ASPIRIN 81 MG ENTERIC TAB PO SCH (10:01)
[2019-02-24] MEDS: OMEPRAZOLE 20 MG CAP PO SCH (10:01)
[2019-02-24] MEDS: LOSARTAN 50 MG TAB PO SCH (10:02)
[2019-02-24] MEDS ORDERED: PRED10TA2 PO (10:27)
[2019-02-24] MEDS ORDERED: PRIL20TA2 PO (10:27)
--- NOTE | 2019-02-24 10:33 | DS.PDOC ---
Discharge Summary General Date of Admission Feb 19, 2019 at 17:50 Date of Discharge February 24, 2019 Discharge Summary CABLE WEAVER: DR STRINGER, NEPHROLOGY DISCHARGE DIAGNOSES: Acute Viral Respiratory Infection with human metapneumovirus Acute mild COPD exacerbation due to viral infection Severe Protein Calorie Malnutrion BMI 15 Failure to Thrive Chronic CHF Hypothyroidism Chronic o2 dependent respiratory failure ESRD on HD DISCHARGE MEDICATIONS: PLS SEE BELOW HISTORY OF PRESENTING ILLNESS: 68-year-old female with a past medical history of advanced oxygen dependent chronic obstructive pulmonary disease (COPD) requiring 2 liters of nasal cannula, history of chronic active tobacco abuse, end stage renal disease on hemodialysis Tuesday, Tuesday, Tuesday and chronic diastolic heart failure, who presents to the emergency room with cough productive of yellow sputum for the past 3 days, along with generalized weakness and decreased appetite so she came to the emergency room for evaluation. She was due for dialysis today but she felt too weak to go so she came to the emergency room. In the emergency room, the patient was started on nebulizer treatments and was given 125 of Solu-Medrol. Chest x-ray showed trace bibasilar atelectasis, so no antibiotics were given at that time. When I saw the patient, she looked emaciated and cachectic and definitely had a productive cough. Her vitals were stable, afebrile. She denies any subjective feeling of fever, aches or chills, but does have an 11.6 thousand white count. The patient will be admitted for further management. HOSPITAL COURSE: Acute Viral Respiratory Infection Respiratory panel: human metapneumovirus similar to common cold. admitted to the medical/surgical floor. s/p IV Zosyn 2.25 mg IV every 12 hours. cxr: right base atelectasis on incentive spirometry. [id number] calorie malnutrition. nutrition consult Hypertension. resumed home meds Chronic diastolic heart failure. euvolemic dependent on dialysis Advanced oxygen dependent chronic obstructive pulmonary disease (COPD) exacerbation with chronic respiratory failure requiring 3liters of nasal cannula.repeat cxr. due to viral infection. start on steroids and continue q4hr nebs. History of hypothyroidism. on synthroid Chronic active tobacco abuse. tobacco cessation counselling ESRD on maintenance hemodialysis The patient is due for dialysis today. Dr. Stringer has been placed on consult and the patient will be dialyzed today as scheduled. We will continue her preadmission medications and continue her care on the medical/surgical floor. PHYSICAL EXAMINATION: VITAL SIGNS: PLS SEE BELOW. General :cachectic edentulous multiple ecchymotic areas on b/l hands and arms appears older than stated age. Head is atraumatic, normocephalic. Neck is supple with no jugular venous distention (JVD). Lungs have diminished breath sounds. coarse breath sounds. ribs exposed S1, S2 audible. No murmurs appreciated. Abdomen is soft. Positive bowel sounds. No pedal edema. Skin is intact. LABORATORY DATA, IMAGING STUDIES, MICROBIOLOGY: PLS SEE BELOW TIME SPENT ON HOSPITAL DISCHARGE: 30 MINUTES. Vital Signs/I&Os Vital Signs Date Time Temp Pulse Resp B/P (MAP) Pulse Ox O2 Delivery O2 Flow Rate FiO2 02/24/19 10:01 73 143/86 02/24/19 08:45 97.8 20 95 2.0 02/19/19 18:15 Nasal Cannula I&O- Last 24 Hours up to 6 AM 02/24/19 06:00 Intake Total 720 ml Output Total 1500 ml Balance -780 ml Laboratory Data Labs 24H Laboratory Tests 2 02/24/19 06:36: Blood Urea Nitrogen 44H, Creatinine 2.90H, Sodium Level 137, Potassium Level 4.0#, Chloride Level 103, Carbon Dioxide Level 26, Anion Gap 8, Glomerular Filtration Rate 17.1L, Calcium Level 8.0L, Phosphorus Level 2.2L, Albumin 3.1L CBC/BMP Laboratory Tests 02/24/19 06:36 Anion Gap 8 Microbiology Microbiology 02/19/19 Blood Culture - Preliminary, Resulted No Growth after 72 hours. All specime... 02/19/19 Blood Culture - Preliminary, Resulted No Growth after 72 hours. All specime... 02/19/19 Respiratory Virus Panel (PCR) ([facility]) - Final, Complete Human Metapneumovirus Discharge Medications Scheduled (Incruse Ellipta) 62.5 Mcg/Inh Inh, 1 PUFF INH DAILY, (Reported) (Arielle-Roby) 1 Tab Tab, 1 TAB PO DAILY, (Reported) (Glucerna) 1 Liq Liq, 1 LIQ PO BID, (Reported) Amlodipine Besylate (Amlodipine Besylate) 10 Mg Tab, 10 MG PO DAILY, (Reported) Aspirin (Aspirin EC) 81 Mg Tabec, 81 MG PO 4XWK, (Reported) TAKES ON NON DIALYSIS DAYS, TUES, THURS, SAT, SUN Budesonide/Formoterol (Symbicort 160-4.5 Mcg/Act) 60 Puff/Inhaler Aers, 2 PUFF INH BID, (Reported) Escitalopram Oxalate (Lexapro) 20 Mg Tab, 20 MG PO QHS, (Reported) Levothyroxine Sodium (Synthroid) 137 Mcg Tab, 137 MCG PO DAILY, (Reported) Losartan Potassium (Losartan Potassium) 100 Mg Tab, 100 MG PO DAILY, (Reported) Omeprazole Magnesium (Prilosec Otc) 20 Mg Tab, 20 MG PO DAILY Pancreatic Enzymes (Creon 71053 Unit) 1 Ea Capcr, 1 CAP PO TID, (Reported) Polynuclear Iron(III)-Oxyhydro (Velphoro) 500 Mg Chw, 500 MG PO WM, (Reported) Prednisone (Prednisone) 10 Mg Tab, 10 MG PO TAPER Take 4 tabs daily x 3 days, then 3 tabs daily x 3 days, then 2 tabs daily x 3 days, then 1 tab daily x 3 days and stop Scheduled PRN Albuterol Sulfate (Albuterol Sulfate) 2.5 Mg/3 Ml Nebu, 2.5 MG INH Q4H PRN for SHORTNESS OF BREATH, (Reported) Albuterol Sulfate (Proair Hfa) 108 Mcg/Act Aer, 2 PUFFS INH Q4H PRN for SHORTNESS OF BREATH, (Reported) Ipratropium [place] (Atrovent Hfa) 17 Mcg/Act Aer, 2 PUFFS INH QID PRN for SHORTNESS OF BREATH, (Reported) Lorazepam (Lorazepam) 1 Mg Tab, 1 MG PO TID PRN for ANXIETY, (Reported) Allergies Coded Allergies: lisinopril (Verified Allergy, Severe, ANGIOEDEMA, 02/19/19) codeine (Verified Adverse Reaction, Mild, GI UPSET, 02/19/19) FELIX ALVES MD Feb 24, 2019 10:33
--- NOTE | 2019-02-25 08:17 | IPN ---
DATE OF SERVICE: 02/24/2019 SUBJECTIVE: Patient was seen and examined at the bedside today morning. She is afebrile, hemodynamically stable. She reports her shortness of breath is better. She was dialyzed yesterday; 1.5 liters of fluid was removed. She is feeling better and she reports that she is getting ready to go home today. OBJECTIVE: VITAL SIGNS: Temperature is 97.8 degrees Fahrenheit, blood pressure 143/86, pulse is 73, respiratory rate of 20, saturating 95% on 2 liters via nasal cannula. INTAKE AND OUTPUT: Urine output recorded as 100 mL yesterday. Fluid removal with hemodialysis was 1.5 liters yesterday. Weight on the bed scale is not available. PHYSICAL EXAMINATION: GENERAL: Patient is awake, alert, oriented times three, weak and cachectic, chronically malnourished, laying in the bed. HEAD AND NECK EXAM: Chronic bitemporal wasting. Mucous membranes are moist. Neck is supple. There is no jugular venous distention (JVD). CARDIOVASCULAR: S1, S2. Regular rate. No edema of the bilateral lower extremities. RESPIRATORY: Decreased breath sounds bilaterally at the bases. No active rales or rhonchi. ABDOMEN: Is soft and there are large polycystic kidney and polycystic liver which is palpable. Musculoskeletal: No clubbing or cyanosis. Pulses are 2+. Central nervous system (TRANSPLANTER): No focal deficit. Power is 5/5 in all extremities. LABORATORY REVIEW: CBC showed a WBC of 6.5, hemoglobin 9.8 and that is from yesterday. BMP done today showed sodium 137, potassium 4, chloride 103, bicarbonate 26, BUN 44, creatinine is 2.9, phosphorus 2.2, albumin is 3.1. CURRENT INPATIENT MEDICATIONS: Patient's medications were all reviewed by me. There is no change in the medications today as compared with yesterday. ASSESSMENT AND PLAN: 1. End-stage renal disease on hemodialysis. Patient's regular dialysis days are Tuesday, Tuesday, Tuesday. She was dialyzed yesterday. No urgent need of hemodialysis today. Next hemodialysis will be as outpatient. 2. Acute chronic obstructive pulmonary disease (COPD) exacerbation. Patient human metapneumovirus infection. Her COPD symptoms are better. Patient was advised again to quit smoking. 3. Hypertension with end-stage renal disease. Continue current dose of amlodipine 10 mg by mouth daily, losartan 100 mg by mouth daily. 4. Protein calorie malnutrition. Albumin level is 3.1. Patient was encouraged more protein intake. Rest of the malnutrition will be addressed as outpatient. DISPOSITION: Patient is okay to be discharged from nephrology standpoint. She would be followed up as outpatient at dialysis center.
== END 2019-02-24 14:10 | disposition home health service (06) | DRG 193 ==
LOC: M ED 13:30 → M MS5PR 17:50
PROVIDERS: ADMIT Internal Medicine; ATTEND General Practice
PROC: 5A1D70Z Performance of Urinary Filtration, Intermittent, Less than 6 Hours Per Day (ICD-10-PCS; principal; 2019-02-21)
DX: J18.9 Pneumonia, unspecified organism (principal); N18.6 End stage renal disease; E43 Unspecified severe protein-calorie malnutrition; J44.0 Chronic obstructive pulmonary disease with (acute) lower respiratory infection; I50.32 Chronic diastolic (congestive) heart failure; J44.1 Chronic obstructive pulmonary disease with (acute) exacerbation; Z68.1 Body mass index [BMI] 19.9 or less, adult; I13.2 Hypertensive heart and chronic kidney disease with heart failure and with stage 5 chronic kidney disease, or end stage renal disease; E03.9 Hypothyroidism, unspecified; Z99.81 Dependence on supplemental oxygen; F17.210 Nicotine dependence, cigarettes, uncomplicated; Z79.899 Other long term (current) drug therapy; Z79.82 Long term (current) use of aspirin; Z88.5 Allergy status to narcotic agent; Z88.8 Allergy status to other drugs, medicaments and biological substances; D64.9 Anemia, unspecified; E87.6 Hypokalemia

== ENCOUNTER 2019-02-28 14:55 | Emergency (ER) | payer MEDICARE, MEDICAID ==
[~2019-02-28] VITALS: Ht 157.5 cm; Wt 36.4 kg
[~2019-02-28 14:55] MED LIST changes: -ASPI1TAB PO; -ASPI81CH PO; +ASPI81CH49 PO; +ASPI81TA26 PO; +GLUCLIQ7 PO; +PRIL20TA2 PO
--- NOTE | 2019-02-28 16:07 | REP ---
Portable chest, 03:40 p.m., single AP semi upright view: There is focal discoid atelectasis inferiorly in the left lung as an interval change. The lung louis otherwise clear and unchanged. Cardiac size is normal. The sharri, mediastinum, and bony thorax are unchanged. There is an old right humeral neck fracture. Impression: Discoid atelectasis inferiorly in the left lung. Electronically Signed by Cristopher Fry MD 02/28/2019 03:58 P
--- NOTE | 2019-02-28 16:34 | REP ---
CT of the brain without IV contrast: Comparison is 2017. I suspect a small scalp hematoma posteriorly near the vertex. This should be confirmed clinically. There is no subdural or epidural hematoma. There is no intraparenchymal or subarachnoid hemorrhage. There is no edema, mass effect or midline shift. The cortical stripe is unremarkable. There are lucencies in the subcortical white matter compatible with chronic microvascular ischemia. This is unchanged. Impression: A small scalp contusion suspected posteriorly near the vertex. This should be confirmed clinically. There is no subdural or epidural hematoma. No other acute intracranial hemorrhage is identified. There is no evidence of acute infarct, mass or shift. There is diffuse volume loss, unchanged. There are findings compatible with chronic microvascular ischemia, unchanged. Electronically Signed by Cristopher Fry MD 02/28/2019 04:25 P
--- NOTE | 2019-02-28 16:45 | REP ---
Maxillofacial CT without IV contrast: There are no comparisons. There is no nasal bone fracture. There is no zygoma fracture. There is no orbit fracture. There is no paranasal sinus fracture or air-fluid level. No air-fluid levels in the mastoid air cells. The head of the mandible at the right temporomandibular joint appears fused to the temporal bone and there appears to be a fracture in the neck of the right mandible at the TMJ. Upon review of multiple prior brain CTs. I suspect this is a chronic change. Impression: No facial bone fracture, except that there appears to be a chronic fracture in the neck of the mandible at the the right TMJ. The head of the right mandible appears fused to the temporal bone at the right TMJ. However, I suspect these are chronic changes. Correlation with clinical point tenderness is recommended. Electronically Signed by Cristopher Fry MD 02/28/2019 04:37 P
--- NOTE | 2019-02-28 17:01 | REP ---
CT study of the cervical spine without contrast: History: Injury in a fall out of bed this morning. No comparison cervical spine imaging. Technique: Helical scanning is acquired. 2 mm axial images are generated and reviewed. Coronal and sagittal multiplanar reformation images are generated as well. CT findings: Cervical vertebral body heights are preserved. No fracture is visible. There is reversal of the normal cervical lordosis and there is a 5 mm C3-4 spondylolisthesis. No fracture is seen. There is a gibbous deformity in the cervical spine about the C4 level with slight widening of the interspinous distances at the C3-4 and C4-5. There is osteoarthritic facet disease at C2-3, C3-4 and C4-5, right more so than left. There is right-sided neural foraminal narrowing at C3-4 in part due to the spondylolisthesis. Degenerative disc spurring and osteophytic ridging are noted at C4-5 C5-6 and C6-7. These discs are all narrowed. There is no definite prevertebral soft tissue swelling at C3-4 or at any other level. Vascular calcification is noted. Impression: There is moderate degenerative spondylosis change. Reversal of the normal cervical lordosis is seen with a mild gibbous at C3-C4. There is a 5 mm C3-4 spondylolisthesis which I suspect is degenerative. Indeed, a 3-4 mm anterolisthesis is seen at the C3-4 disc level on the lateral duplicating machine operator views from head CT studies dated July 21, 2017 and May 23, 2017. There is no visible fracture or soft tissue swelling. Electronically Signed by Manjit Cruz MD 02/28/2019 05:33 P
[2019-02-28 17:21] LABS: VENOUS HCO3 27.6 MEQ/L (23.0-27.0); VENOUS O2 SATURATION 78.7 % (60.0-80.0); VENOUS PARTIAL PRESSURE CO2 48.2 mmHg (38.0-50.0); VENOUS PARTIAL PRESSURE O2 45.9 mmHg (30.0-50.0); VENOUS PH 7.375 UNITS (7.330-7.430); VENOUS STANDARD HCO3 25.9 MEQ/L
[2019-02-28 17:25] LABS: HEMATOCRIT 27.1 % (36.0-47.0); HEMOGLOBIN 8.3 g/dl (12.0-15.5); LYMPH # 0.4 10^3/uL (1.5-4.5); LYMPH % 4.5 % (24.0-44.0); MEAN CORPUSCULAR HEMOGLOBIN 27.8 pg (27.0-33.0); MEAN CORPUSCULAR HGB CONC 30.6 g/dl (32.0-36.5); MEAN CORPUSCULAR VOLUME 90.6 fl (80.0-96.0); MONO # 0.2 10^3/uL (0.0-0.8); MONO % 2.3 % (0.0-5.0); NEUTROPHILS # 7.7 10^3/uL (1.8-7.7); NEUTROPHILS % 91.6 % (36.0-66.0); PLATELET COUNT, AUTOMATED 272 10^3/uL (150-450); RED BLOOD COUNT 2.99 10^6/uL (4.00-5.40); WHITE BLOOD COUNT 8.4 10^3/uL (4.0-10.0)
[2019-02-28 17:54] LABS: CALCIUM LEVEL 7.6 MG/DL (8.8-10.2); CREATININE FOR GFR 2.46 MG/DL (0.55-1.30); GLOMERULAR FILTRATION RATE 20.6 (>39); MB/CK RELATIVE INDEX 12.69 (< OR =4); POTASSIUM SERUM 3.7 MEQ/L (3.5-5.1); THYROID STIMULATING HORMONE 0.28 uIU/ML (0.358-3.740); TROPONIN I 0.03 NG/ML (< 0.10)
[2019-02-28 19:30] VITALS: BP 134/82
[2019-02-28 19:43] VITALS: O2SAT 95
--- NOTE | 2019-02-28 21:46 | ECGEPIP ---
Stationary ECG Study [facility] - ED Test Date: 2019-02-28 Pat Name: CHIQUITA FELIPE Department: Room: - Gender: F Assistant Attorney General: MERE : 1950 Requested By: JACQUELYN KHAN Order Number: [id number] Reading MD: Jennifer Mendoza Measurements Intervals [place] Rate: 73 P: 77 AK: 144 QRS: -4 QRSD: 90 T: 81 QT: 445 QTc: 492 Interpretive Statements SINUS RHYTHM NSTTW ABNORMALITY PROLONGED QT INTERVAL DECREASED RATE 02/19/19 Electronically Signed On 02-28-2019 21:46:38 EDT by Jennifer Mendoza
--- NOTE | 2019-03-02 11:28 | ED PDOC ---
Post-Departure Follow-Up dr michael faxed formal report of ct c spine for fu Soledad Alegre MD Mar 02, 2019 11:28
== END 2019-02-28 19:54 | disposition home or self-care (01) ==
LOC: EDBD 14:55 → M ED 14:55 → EDSEX 14:55 → M ED 19:54
DX: R55 Syncope and collapse (principal); Z99.2 Dependence on renal dialysis; I50.9 Heart failure, unspecified; J44.9 Chronic obstructive pulmonary disease, unspecified; N18.6 End stage renal disease; I27.20 Pulmonary hypertension, unspecified; E28.2 Polycystic ovarian syndrome; Q44.6 Cystic disease of liver; E46 Unspecified protein-calorie malnutrition; Z79.899 Other long term (current) drug therapy; Z79.890 Hormone replacement therapy; Z79.82 Long term (current) use of aspirin; Z88.5 Allergy status to narcotic agent; Z88.8 Allergy status to other drugs, medicaments and biological substances

== ENCOUNTER 2019-04-17 08:58 | Inpatient (IN) | payer MEDICARE, MEDICAID ==
[~2019-04-17] VITALS: Ht 154.9 cm; Wt 34.4 kg
[2019-04-17] MEDS: IPRATROPIUM 0.5MG/ALBUTEROL 2.5MG INH SOL UD 3ML (DUONEB)(J7620) NEB PRN ×2 (09:32→10:16)
--- NOTE | 2019-04-17 09:41 | REP ---
Portable chest x-ray: Sitting AP view. History: Dyspnea and cough. Comparison study: February 28, 2019. Findings: The lungs are quite hyperinflated but remain clear. Heart is mildly enlarged unchanged. The thoracic aorta is tortuous. EKG electrodes are seen. The patient is extremely thin as before. There is an old healed proximal humerus fracture on the right. Impression: Evidence of COPD. No acute infiltrate. Electronically Signed by Manjit Cruz MD 04/17/2019 09:33 A
[2019-04-17 09:51] LABS: ABG BASE EXCESS -2.9 (-2.0-2.0); ABG HCO3 26.6 MEQ/L (22.0-26.0); ABG O2 SATURATION 95.2 % (95.0-99.0); ABG PARTIAL PRESSURE O2 87.2 mmHg (75.0-100.0); ABG TOTAL CO2 28.7 MEQ/L (23.0-31.0)
[2019-04-17 09:54] LABS: ABG PARTIAL PRESSURE CO2 69.3 mmHg (35.0-45.0); ABG pH (ARTERIAL) 7.202 UNITS (7.350-7.450)
[2019-04-17] MEDS ORDERED: methylPREDNISolone INJ 125 MG/2 ML VIAL (J2930) IV ONE (10:00)
[2019-04-17] MEDS ORDERED: LIDO2.5C15 TOP (10:00)
[2019-04-17] MEDS ORDERED: MEGE20TA3 PO (10:00)
[2019-04-17] MEDS ORDERED: DICL1GEL3 TOP (10:00)
[2019-04-17] MEDS ORDERED: GLUCLIQ37 PO (10:00)
[2019-04-17] MEDS ORDERED: OMEP20CA3 PO (10:00)
[2019-04-17 10:09] LABS: BASO # 0.1 10^3/uL (0.0-0.2); BASO % 1.2 % (0.0-1.0); EOS # 0.8 10^3/uL (0.0-0.50); EOS % 8.5 % (0.0-3.0); HEMATOCRIT 41.9 % (36.0-47.0); HEMOGLOBIN 12.4 g/dl (12.0-15.5); LYMPH # 1.2 10^3/uL (1.5-4.5); LYMPH % 13.8 % (24.0-44.0); MEAN CORPUSCULAR HEMOGLOBIN 29.4 pg (27.0-33.0); MEAN CORPUSCULAR HGB CONC 29.6 g/dl (32.0-36.5); MEAN CORPUSCULAR VOLUME 99.3 fl (80.0-96.0); MONO # 0.6 10^3/uL (0.0-0.8); MONO % 6.3 % (0.0-5.0); NEUTROPHILS # 6.2 10^3/uL (1.8-7.7); PLATELET COUNT, AUTOMATED 184 10^3/uL (150-450); RED BLOOD COUNT 4.22 10^6/uL (4.00-5.40); WHITE BLOOD COUNT 8.9 10^3/uL (4.0-10.0)
[2019-04-17 10:20] LABS: INR 1.03; PROTHROMBIN TIME 13.6 SECONDS (12.1-14.4)
[2019-04-17 10:51] LABS: ALBUMIN 3.6 GM/DL (3.2-5.2); BILIRUBIN,DIRECT 0.2 MG/DL (0.0-0.2); BILIRUBIN,TOTAL 0.7 MG/DL (0.2-1.0); CALCIUM LEVEL 8.4 MG/DL (8.8-10.2); CREATININE FOR GFR 3.83 MG/DL (0.55-1.30); GLOMERULAR FILTRATION RATE 12.4 (>39); MB/CK RELATIVE INDEX 12.5 (< OR =4); POTASSIUM SERUM 4.1 MEQ/L (3.5-5.1); THYROID STIMULATING HORMONE 0.964 uIU/ML (0.358-3.740); TROPONIN I 0.03 NG/ML (< 0.10)
[2019-04-17 11:11] LABS: ABG BASE EXCESS -0.9 (-2.0-2.0); ABG O2 SATURATION 98.3 % (95.0-99.0); ABG PARTIAL PRESSURE CO2 59.8 mmHg (35.0-45.0); ABG PARTIAL PRESSURE O2 109.3 mmHg (75.0-100.0); ABG STANDARD HCO3 23.7 MEQ/L (22.0-26.0); ABG TOTAL CO2 28.8 MEQ/L (23.0-31.0); ABG pH (ARTERIAL) 7.272 UNITS (7.350-7.450)
[2019-04-17] MEDS ORDERED: IPRATROPIUM 0.5MG/ALBUTEROL 2.5MG INH SOL UD 3ML (DUONEB)(J7620) NEB PRN (12:45)
[2019-04-17] MEDS ORDERED: AZITHROMYCIN INJ 500 MG, VIAL MATE ADAPTER 1 EACH in D5W 250 ML IV ONE (13:00)
[2019-04-17] MEDS: IPRATROPIUM 0.5MG/ALBUTEROL 2.5MG INH SOL UD 3ML (DUONEB)(J7620) NEB SCH ×2 (13:21→19:53)
[2019-04-17] MEDS ORDERED: NS 1,000 ML IV SCH (13:49)
[2019-04-17] MEDS: HEPARIN SOD (PORCINE) 5000 UNITS/ML VIAL SC SCH ×2 (14:00→21:34)
--- NOTE | 2019-04-17 14:00 | HPEPDOC ---
[facility] Medical History & Physical Date of Admission April 17, 2019 Date of Service: April 17, 2019 History and Physical CHIEF COMPLAINT: SOB HISTORY OF PRESENT ILLNESS: She is 68-year-old female with COPD on 2 L home O2, end-stage renal disease on HD MWF, HFpEF, Hypothyroidism, HTN presented to the ER with worsening SOB. Repo rtedly has been going on for awhile and worsened recently. Reported a chronic cough but otherwise no other symptoms that would suggest PNA or URI symptoms. In ER, ABG showed pH 2.20 with initial pCO2 69 and was placed on high flow oxygen with slight improvement of pCO2 to 59. She is DNR and initially does not want to have Bipap until it is the last resort and was planned to have patient transfer to ICU for treatment with Bipap. However, patient conclusively noted that she does not want Bipap when evaluated by ICU team and again upon my reassessment. Most history are obtained from chart as patient is very weak and unable to answer many questions. She was able to nod or shook her head for most of the answers, rest of history is obtained from previous records. PAST MEDICAL HISTORY: Refer to [facility] PAST SURGICAL HISTORY: Unknown SOCIAL HISTORY: Longtime smoker of 1ppd, recently cut down to 5cigs/day in previous admission. No alcohol or drug use from documentation. FAMILY HISTORY: Unknown ALLERGIES: Please see below. REVIEW OF SYSTEMS: 10 point review of system negative except as stated in [facility] HOME MEDICATIONS: Please see below. PHYSICAL EXAMINATION: General: severely cachectic and weak. Minimal verbal communication, very soft whispers. Eyes: Normal sclera, EOMI, EDER HENT: Atraumatic, neck supple, dry mucous membranes Cardiovascular: Normal rate, normal rhythm. Pulmonary: Decrease breath sounds and inspiratory effort. Unable to appreciate significant wheezing. GI: Soft, nontender, nondistended Skin: Warm and dry Neuro: Severe generalized weakness, unable to fully assess. Alert. LABORATORY DATA: See below. IMAGING: CXR- Impression: Evidence of COPD. No acute infiltrate. MICROBIOLOGY: Please see below. ASSESSMENT AND PLAN: 1. COPD exacerbation on 2L home O2 - Initial ABG with pH 7.20 and pCO2 69. - Recommended Bipap and ICU consulted. - Patient initially reported possibility of bipap as last resort but now refusing. - Patient is DNR/DNI, very poor clinical status. I anticipate that she is terminal and comfort care may be the best option for her. - Son does not want QA CONSULTANT at this time. - Will c/w steroids, nebs, Azithromycin and O2 support as needed. - Very poor prognosis. Will watch on PCU with current treatment only as she had refused Bipap. 2. ESRD on HD - Nephrology consulted. - Evaluated patient and offered HD today but patient stated that she is too weak and will aim for tomorrow instead. 3. Hypothyroidism - Resume home med once she is more alert. - Don't think she is safe to take any PO medication or food at this time. 4. HTN - Monitor BP. - Hold PO meds at this time. Patient too lethargic. 5. HFpEF - Fluid removal through HD. - No strong evidence of fluid overload at this time. DVT ppx: HSQ Code status: DNR Vital Signs Vital Signs Date Time Temp Pulse Resp B/P (MAP) Pulse Ox O2 Delivery O2 Flow Rate FiO2 04/17/19 11:15 74 22 165/92 (116) 95 High Flow Cannula 04/17/19 10:28 97.6 04/17/19 10:13 2.0 04/17/19 10:13 45 Laboratory Data Labs 24H Laboratory Tests 2 04/17/19 09:04: Blood Gas Bicarbonate Standard 22.0, Arterial Blood pH 7.202*L, Arterial Blood Partial Pressure CO2 69.3*H, Arterial Blood Partial Pressure O2 87.2, Arterial Blood Total CO2 28.7, Arterial Blood HCO3 26.6H, Arterial Blood Base Excess - 2.9L, Arterial Blood Oxygen Saturation 95.2 04/17/19 09:57: Immature Granulocyte % (Auto) 0.2, White Blood Count 8.9, Red Blood Count 4.22, Hemoglobin 12.4, Hematocrit 41.9, Mean Corpuscular Volume 99.3H, Mean Corpuscular Hemoglobin 29.4, Mean Corpuscular Hemoglobin Concent 29.6L, Red Cell Distribution Width 19.9H, Platelet Count 184, Neutrophils (%) (Auto) 70.0H, Lymphocytes (%) (Auto) 13.8L, Monocytes (%) (Auto) 6.3H, Eosinophils (%) (Auto) 8.5H, Basophils (%) (Auto) 1.2H, Neutrophils # (Auto) 6.2, Lymphocytes # (Auto) 1.2L, Monocytes # (Auto) 0.6, Eosinophils # (Auto) 0.8H, Basophils # (Auto) 0.1, Nucleated Red Blood Cells % (auto) 0.0, Prothrombin Time 13.6, Prothromb Time International Ratio 1.03, Anion Gap 6L, Glomerular Filtration Rate 12.4L, Lactic Acid Level 0.5, Calcium Level 8.4L, Aspartate Amino Transf (AST/SGOT) 25, Alanine Aminotransferase (ALT/SGPT) 14, Alkaline Phosphatase 95, Total Bilirubin 0.7, Direct Bilirubin 0.2, Total Creatine Kinase 52, Creatine Kinase MB 6.0H, Creatine Kinase MB Relative Index 12.50H, Troponin I 0.03, JA-Xko-O-Type Natriuretic Peptide 96400I, Total Protein 6.0L, Albumin 3.6, Albumin/Globulin Ratio 1.50, Thyroid Stimulating Hormone (TSH) 0.964 04/17/19 10:57: Blood Gas Bicarbonate Standard 23.7, Arterial Blood pH 7.272L, Arterial Blood Partial Pressure CO2 59.8H, Arterial Blood Partial Pressure O2 109.3H, Arterial Blood Total CO2 28.8, Arterial Blood HCO3 27.0H, Arterial Blood Base Excess - 0.9, Arterial Blood Oxygen Saturation 98.3 CBC/BMP Laboratory Tests 04/17/19 09:57 Red Blood Count 4.22, Mean Corpuscular Volume 99.3 H, Mean Corpuscular Hemoglobin 29.4, Mean Corpuscular Hemoglobin Concent 29.6 L, Red Cell Distrib ution Width 19.9 H, Neutrophils (%) (Auto) 70.0 H, Lymphocytes (%) (Auto) 13.8 L, Monocytes (%) (Auto) 6.3 H, Eosinophils (%) (Auto) 8.5 H, Basophils (%) (Auto) 1.2 H, Neutrophils # (Auto) 6.2, Lymphocytes # (Auto) 1.2 L, Monocytes # (Auto) 0.6, Eosinophils # (Auto) 0.8 H, Basophils # (Auto) 0.1 Microbiology Microbiology 04/17/19 Blood Culture, Received Pending 04/17/19 Blood Culture, Received Pending Home Medications Scheduled Amlodipine Besylate (Amlodipine Besylate) 10 Mg Tab, 10 MG PO DAILY Aspirin (Aspirin EC) 81 Mg Tabec, 81 MG PO 4XWK TAKES ON NON DIALYSIS DAYS, TUES, TH, SAT, SUN Budesonide/Formoterol (Symbicort 160-4.5 Mcg Inhaler) 60 Puff/Inhaler Aers, 2 PUFF INH BID Escitalopram Oxalate (Lexapro) 20 Mg Tab, 20 MG PO QHS Folic Acid/Vit B Complex and C (Arielle-Roby Tablet) 1 Tab Tab, 1 TAB PO DAILY Levothyroxine Sodium (Synthroid) 137 Mcg Tab, 137 MCG PO DAILY Lidocaine/Prilocaine (Lidocaine-Prilocaine Cream) 2.5%/2.5% Cream..g., 1 APLCT TOP HD Losartan Potassium (Losartan Potassium) 100 Mg Tab, 100 MG PO DAILY Megestrol Acetate (Megestrol Acetate) 20 Mg Tablet, 20 MG PO QID Nut.tx.gluc.intoler,Lac-Fr,Soy (Glucerna) 237 Ml Liquid, 1 LIQ PO BID Omeprazole (Omeprazole) 20 Mg Capsule.dr, 20 MG PO DAILY Pancreatic Enzymes (Creon Dr 24,000 Units Capsule) 1 Ea Capcr, 1 CAP PO TID Sucroferric Oxyhydroxide (Velphoro) 500 Mg Chw, 500 MG PO WM Umeclidinium [place] (Incruse Ellipta) 62.5 Mcg/Inh Inh, 1 PUFF INH DAILY Scheduled PRN Albuterol Sulf (Albuterol Sulfate) 2.5 Mg/3 Ml Nebu, 2.5 MG INH Q4H PRN for SHORTNESS OF BREATH Albuterol Sulfate (Proair Hfa) 108 Mcg/Act Aer, 2 PUFFS INH Q4H PRN for SHORTNESS OF BREATH Diclofenac Sodium (Diclofenac Sodium) 1% 100GM Gel..gram., 1 APLCT TOP TID PRN for NECK PAIN Ipratropium [place] (Atrovent Hfa) 17 Mcg/Act Aer, 2 PUFFS INH QID PRN for S HORTNESS OF BREATH Lorazepam (Lorazepam) 1 Mg Tab, 1 MG PO TID PRN for ANXIETY Allergies Coded Allergies: lisinopril (Verified Allergy, Severe, ANGIOEDEMA, 02/19/19) codeine (Verified Adverse Reaction, Mild, GI UPSET, 02/19/19) A-FIB/CHADSVASC A-FIB History Current/History of A-Fib/PAF?: No SCOTT,CANH T. MD April 17, 2019 14:00
--- NOTE | 2019-04-17 15:15 | CR ---
PULMONARY CRITICAL CARE CONSULTATION NOTE: DATE OF SERVICE: 04/17/2019 Pulmonary critical care team were asked by Dr. Tomlinson the hospitalist for consultation and possible bilevel positive airway pressure (BiPAP) management on Karina Blackmon. Ms. Blackmon is a 68-year-old female who was admitted with dyspnea and acute respiratory failure. The patient does have severe chronic obstructive pulmonary disease and does require supplemental oxygen. The patient is a smoker who states she has not smoked in 2 days. She does report that she has been having increased dyspnea over the last couple of days. She notes a cough and she states it is productive. She denies any known sick contacts. She denies chest pain or fevers or chills. She is being admitted by the hospitalist and reportedly stated she does not want BiPAP. She states that she has worn a BiPAP mask in the past and is not interested in BiPAP therapy even if this means she will without it. The patient is noted to be a DO NOT RESUSCITATE/DO NOT INTUBATE. PAST MEDICAL HISTORY: 1. Chronic obstructive pulmonary disease, supplemental oxygen dependent. 2. End-stage renal disease on hemodialysis. 3. History of congestive heart failure. 4. Hypertension. 5. History of hypothyroidism. 6. History of tobacco use. REVIEW OF SYSTEMS: Review of systems is somewhat difficult to elicit as patient is fairly lethargic and has some difficulty communicating, but she is able to state that she has had no fevers or chills. The patient denies headaches or vision changes. Denies chest pain or palpitations. The patient denies abdominal pain, nausea, vomiting. The patient denies any dysuria. The patient denies any seizures. The patient does have evidence of bruising. MEDICATIONS: - Atrovent 2 puffs four times day as needed - Incruse 62.5 mcg per inhalation 1 puff daily - albuterol nebulizers every 4 hours as needed, shortness of breath - Synthroid 137 mcg by mouth daily - losartan 100 mg by mouth daily - Symbicort 160-4.5 mcg 2 puffs twice a day - aspirin 81 mg by mouth daily - Lexapro 20 mg by mouth daily - lorazepam 1 mg by mouth three times a day as needed, anxiety - folic acid/vitamin B complex/vitamin C 1 tablet by mouth daily - ProAir 2 puffs every 4 hours as needed, shortness of breath - amlodipine 10 mg by mouth daily - Velphoro 500 mg by mouth with meals - Creon 1 capsule by mouth three times a day - omeprazole 20 mg by mouth daily - Glucerna one twice a day - megestrol 20 mg by mouth four times a day - diclofenac gel topically as needed for neck pain - lidocaine-prilocaine cream topical on hemodialysis days ALLERGIES: To CODEINE and LISINOPRIL. SOCIAL HISTORY: The patient lives with her son and [id number]. The patient is a smoker, but states she has not smoked in 2 days, but reportedly has smoked a pack a day for many years prior to recent months. FAMILY MEDICAL HISTORY: Noncontributory. PHYSICAL EXAMINATION: Vital signs: Temperature is 97.6, pulse 86, blood pressure is 169/98, pulse oximetry 90% on 2 liters, respiratory rate 22. General: The patient is alert and oriented. She is lethargic but is able to answer questions appropriately. She appears frail and elderly, but patient appears much older than stated age. HEENT: Head is normocephalic, atraumatic. Lips appear dry, but mucous membranes otherwise are moist. Tongue is midline. Neck: No jugular venous distention (JVD). No cervical lymphadenopathy. Trachea midline. Heart: Distant heart sounds but regular rate and rhythm with no obvious murmurs appreciated. Pulmonary: Diminished breath sounds with scattered wheezing and rhonchi throughout. No accessory muscle use. Prolongation of expiratory phase noted. Abdomen: Positive bowel sounds, soft, nontender. No rebound or guarding. Extremities: No clubbing, cyanosis or edema. Skin: The patient does have patches of ecchymosis scattered over her upper and lower extremities. LABORATORY DATA: ABG: pH 7.272, pCO2 is 59.8, pO2 is 109.3, HCO3 is 27.0. CBC: WBC is 8.9, hemoglobin 12.4, hematocrit 41.9, platelets 184. Chemistry: Sodium is 141, potassium is 4.1, chloride is 105, carbon dioxide is 30, BUN is 28, creatinine is 3.83, glucose 72, lactic acid 0.5, calcium 8.4, total bilirubin 0.7, direct bilirubin 0.2, AST 25, ALT 14, alkaline phosphatase 95, creatinine kinase 52, CK-MB 6.0, CK-MB relative index 12.50. Troponin I 0.03. BNP 15,020. Total protein 6.0, albumin 3.6, TSH 0.964. PT 13.6, INR is 1.03. Chest x-ray shows hyperinflation. ASSESSMENT AND PLAN: Acute hypercapnic respiratory failure. Likely secondary to chronic obstructive pulmonary disease (COPD) exacerbation. The patient is supplemental oxygen dependent. Dr. Fernández explained to the patient that she would need BiPAP and explains what BiPAP was to the patient and to the patient's family who were present at bedside. The patient adamantly refused BiPAP. She states that she understood that without BiPAP she may likely . Dr. Fernández discussed comfort measures with the patient and family. The patient again expressed her refusal of BiPAP. The patient is DO NOT RESUSCITATE/DO NOT INTUBATE. She will be admitted by hospitalist, and since she is not interested in BiPAP therapy does not need to go to intensive care unit (ICU). If the patient changes her mind about BiPAP, then certainly the pulmonary critical care team can again be notified. The patient's overall prognosis is poor.
[2019-04-17 15:45] VITALS: BP 156/85
[2019-04-17] MEDS: methylPREDNISolone INJ 125 MG/2 ML VIAL (J2930) IV SCH (17:51)
[2019-04-17 20:00] VITALS: BP 129/82
--- NOTE | 2019-04-17 20:59 | ECGEPIP ---
[facility] - ED Test Date: 2019-04-17 Pat Name: CHIQUITA FELIPE Department: Room: - Gender: Female Director Of Contracts: : [id number] Requested By: Jennifer Mendoza Order Number: [id number] Reading MD: Jennifer Mendoza Measurements Intervals [place] Rate: 81 P: 95 OK: 181 QRS: 194 QRSD: 75 T: 180 QT: 371 QTc: 432 Interpretive Statements SINUS RHYTHM NSTTW abnormalities baseline artifact may affect interpretation INCREASED RATE 02/28/19 Electronically Signed on 04-17-2019 20:59:16 EDT by Jennifer Mendoza
--- NOTE | 2019-04-17 22:26 | CR ---
DATE OF CONSULTATION: 04/17/2019 REQUESTING PHYSICIAN: Manisha Tomlinson MD CONSULTING PHYSICIAN: Chris Garces MD REASON FOR CONSULTATION Management of end-stage renal disease on hemodialysis and volume status. CHIEF COMPLAINT: The patient presented to the emergency room with progressive shortness of breath. HISTORY OF PRESENT ILLNESS Karina Blackmon is a 68-year-old female with past medical history of end-stage renal disease on hemodialysis every Tuesday, Tuesday, Tuesday, history of autosomal dominant polycystic kidney disease and polycystic liver disease, chronically malnourished, history of heart failure with preserved ejection fraction, end-stage chronic obstructive pulmonary disease (COPD) and chronic home O2 dependence and still active smoker. Multiple other comorbidities as mentioned below. She is well-known to nephrology service from outpatient hemodialysis center and from multiple previous hospitalizations. The patient went for hemodialysis yesterday as outpatient, but she was not feeling good. She was having shortness of breath. No fluid removal was done and the patient signed out against medical advice an hour earlier and did not finish her dialysis yesterday. She ultimately presented to the emergency room today with progressive shortness of breath, hypoxemia. She was placed on high-flow nasal cannula. The patient refused to have the BiPap placed in the emergency room. Nephrology service was called for further help in the management of this patient and possible need to do hemodialysis. I saw and evaluated the patient today afternoon at the bedside in the emergency room. She was in moderate respiratory distress. She was obtunded, but was able to answer questions. I advised the patient to get the hemodialysis done and get some fluid removed to help with her shortness of breath. However, the patient adamantly refused to have hemodialysis and she reported that she was not feeling good and she would like to have her dialysis done on her regular dialysis day which is tomorrow. PAST MEDICAL HISTORY End-stage renal disease on hemodialysis at every Tuesday, Tuesday, Tuesday, History of autosomal dominant polycystic kidney disease and polycystic liver disease. Heart failure with preserved ejection fraction. End-stage COPD with oxygen dependence. Hypothyroidism. Hypertension. Chronic protein calorie malnutrition. PAST SURGICAL HISTORY Status post AV fistula placement. ALLERGIES: She is allergic to LISINOPRIL and CODEINE. FAMILY HISTORY: Positive family history of autosomal dominant polycystic kidney disease. Her daughter also has renal failure and she is on dialysis. SOCIAL HISTORY: Patient lives at home. She is a chronic active smoker. Now she admits to smoking about 2 to 3 cigarettes a day. She denies any illicit drug abuse or alcohol abuse. REVIEW OF SYSTEMS: CONSTITUTIONAL: Patient reports feeling weak and tired. EYES: Denies any blurry vision, double vision. ENT: She denies any dysphagia, odynophagia. CARDIOVASCULAR: She does report progressive shortness of breath, but she denies any lower extremity edema. RESPIRATORY: She reports end-stage COPD and progressive shortness of breath. GI: She denies any nausea, vomiting. GENITOURINARY: She denies any dysuria or hematuria. MUSCULOSKELETAL: She denies any muscle aches and pains. SKIN: She denies any rashes or ulcers. HEMATOLOGY/ONCOLOGY: She denies any easy bleeding or bruising. ENDOCRINE: She reports history of hypothyroidism. SOFTWARE TEST ENGINEER: She denies any strokes or seizures. All other review of systems is negative. PHYSICAL EXAMINATION GENERAL: The patient is weak. Cachectic. Emaciated. Laying in bed. Moderate respiratory distress. Obtunded, but able to follow commands and communicate. VITAL SIGNS: Temperature is 97.6 degrees Fahrenheit. Blood pressure is 155/88, pulse is 77, respiratory rate of 22, saturating 98% on high flow cannula. HEAD AND NECK EXAMINATION: The patient has bitemporal wasting. She has emaciation. Mucous membranes are dry. Neck is supple. There is moderately elevated JVD. CARDIOVASCULAR: S1, S2 regular rate. No edema of the bilateral lower extremities. RESPIRATORY: Decreased breath sounds bilaterally at the bases. Inspiratory crackles bilaterally with mild expiratory rhonchi bilaterally at the bases and upper lung zones. ABDOMEN: Soft, large of polycystic kidneys are palpable. Polycystic liver is also palpable. No ascites is noted. MUSCULOSKELETAL: The patient has chronic muscle wasting. She is weak and emaciated and she is just skin and bones. SKIN: No rashes or ulcers. SOFTWARE TEST ENGINEER: No focal deficit. The patient is able to follow commands and move extremities. LABORATORY REVIEW: CBC showed a WBC 8.9, hemoglobin 12.4, platelets are 184, INR is 1. ABG initially showed pH of 7.20, pCO2 69, pO2 87, bicarb 26, O2 sat is 95%. BMP showed sodium 141, potassium 4.1, chloride 105, bicarb 30, BUN 28, creatinine is 3.8, lactic acid 0.5. Calcium 8.4. Pro-BNP is 15,020, troponin is 0.03. Albumin 3.6. TSH 0.96. Microbiology: Blood cultures are pending. IMAGING STUDIES Her chest x-ray was done in the emergency room, which showed evidence of COPD. No acute infiltrate. CURRENT INPATIENT MEDICATIONS: The patient's medications include: - azithromycin 500 mg IV every 24 - DuoNeb nebulizations every 6 hourly - heparin subcu - levothyroxine 75 mcg IV daily - She is also on normal saline at 50 mL an hour which I have stopped - Solu-Medrol 125 mg IV one dose and then 60 mg IV every 8 hourly ASSESSMENT 68-year-old female with end-stage renal disease secondary to autosomal dominant polycystic kidney disease on hemodialysis every Tuesday, Tuesday, Tuesday, diastolic congestive heart failure, hypothyroidism, admitted this time with acute hypercapnic respiratory failure. PLAN 1. Acute hypoxemic and hypercapnic respiratory failure. It is multifactorial secondary to COPD exacerbation and fluid overload. I recommended the patient to get hemodialysis done and get some fluid removed. However, she adamantly refused to have dialysis today off her schedule. She would like to have dialysis tomorrow morning. The patient is being transferred to ICU. Continue high-flow nasal cannula. Continue the steroids and nebulizations along with IV antibiotics. 2. Acute decompensated diastolic congestive heart failure. The patient terminated her dialysis 1 hour early yesterday. No fluid removal was done yesterday. The patient is refusing dialysis today. She has a very high BMP level with evidence of some fluid overload on clinical exam as well. I am going to stop the IV fluids at this time. 3. End-stage renal disease on hemodialysis. The patient's regular dialysis days are Tuesday, Tuesday, Tuesday. She did not finish her full dialysis yesterday. Next dialysis will be done tomorrow morning as per her regular schedule. I will try to remove at least 1.5 kg of fluid as tolerated by her blood pressure. 4. Hypothyroidism. Continue home dose of levothyroxine 75 mcg by mouth daily. 5. History of hypertension. The patient's blood pressures are acceptable at this time. She takes amlodipine at home 10 mg daily. Amlodipine is being stopped at this point. 6. Chronic kidney disease. Mineral bone disease. Patient takes of Velphoro 500 mg by mouth three times a day with meals. When patient starts taking the regular diet then she will be started on phosphorous binders. 7. Chronic protein calorie malnutrition. Patient takes Megace at home. She also takes Glucerna twice a day. When patient starts eating she will be restarted on Glucerna or Nepro shakes. She also needs to take pancreatic enzymes 24,000 units three times a day. Thank you for involving me in the care of this patient. I shall be happy to follow the patient with you tomorrow morning. Plan of care was discussed with the admitting hospitalist.
[2019-04-17 23:59] VITALS: BP 154/81
[2019-04-18] MEDS: IPRATROPIUM 0.5MG/ALBUTEROL 2.5MG INH SOL UD 3ML (DUONEB)(J7620) NEB SCH ×4 (00:56→19:44)
[2019-04-18] MEDS: methylPREDNISolone INJ 125 MG/2 ML VIAL (J2930) IV SCH ×3 (01:46→21:32)
[2019-04-18 04:00] VITALS: BP 165/84
[2019-04-18] MEDS: HEPARIN SOD (PORCINE) 5000 UNITS/ML VIAL SC SCH ×3 (05:31→21:40)
[2019-04-18 05:54] LABS: HEMATOCRIT 38.7 % (36.0-47.0); HEMOGLOBIN 11.5 g/dl (12.0-15.5); MEAN CORPUSCULAR HEMOGLOBIN 28.2 pg (27.0-33.0); MEAN CORPUSCULAR HGB CONC 29.7 g/dl (32.0-36.5); MEAN CORPUSCULAR VOLUME 94.9 fl (80.0-96.0); PLATELET COUNT, AUTOMATED 163 10^3/uL (150-450); RED BLOOD COUNT 4.08 10^6/uL (4.00-5.40); WHITE BLOOD COUNT 2.6 10^3/uL (4.0-10.0)
[2019-04-18] MEDS: LEVOTHYROXINE 100 MCG (0.1MG) VIAL IV SCH (06:00)
[2019-04-18 06:17] LABS: CALCIUM LEVEL 7.9 MG/DL (8.8-10.2); CREATININE FOR GFR 4.54 MG/DL (0.55-1.30); GLOMERULAR FILTRATION RATE 10.2 (>39); POTASSIUM SERUM 4.8 MEQ/L (3.5-5.1)
[2019-04-18 08:02] VITALS: BP 136/87
--- NOTE | 2019-04-18 10:54 | NUR ---
Recommend level 2 solids, nectar thick liquids, upright & OOB as tolerated for meals, small bites/sips. Dysphagia tx. Addendum: 04/18/19 at [address] [facility] Amended: Links added.
[2019-04-18 12:00] VITALS: BP 157/78
--- NOTE | 2019-04-18 14:33 | IPNPDOC ---
Subjective Date Seen The patient was seen on 04/18/19. Subjective Chief Complaint/HPI Patient seen and examined at the bedside. She tells me that she is hungry today and would like to try a diet. Denies any worsening of her shortness of breath. Otherwise no acute overnight complaints noted. Objective Physical Examination General Exam: Positive: Alert, Cooperative, No Acute Distress, Other (Cachectic appearing) ENT Exam: Positive: Atraumatic, Other ENT (Bitemporal wasting noted) Chest Exam: Positive: Diminished; Negative: Rales, Rhonchi Heart Exam: Positive: Rate Normal, Normal S1, Normal S2 Abdomen Exam: Positive: Soft; Negative: Tenderness Extremity Exam: Negative: Tenderness, Swelling Assessment /Plan Plan/VTE VTE Prophylaxis Ordered?: Yes Plan Acute on Chronic Hypercarbic Respiratory Failure, COPD Exacerbation CXR with no acute infiltrate noted Patient noted to have a CO2 of 69 with a pH of 7.20 on admission, improved to 60 and 7.27 respectively with supportive treatment. Patient has refused BiPAP therapy on multiple occasions despite discussing risks, benefits, and alternative options. The patient and her family has verbalized understanding of the same. Patient able to speak in full sentences this morning and does not appear to be in any respiratory distress at rest Pulmonary input appreciated Cont IV Steroids, Zithro, and serial nebulizer therapy as ordered PT on board for functional optimization ESRD on HD Nephro consulted for management of dialysis Tobacco Abuse Counseled at length about cessation Hypothyroidism Cont Levothyroxine Severe Protein Calorie Malnourishment BMI noted to be 14.5 DVT Prophylaxis Heparin SC Code Status: DNR/DNI Poor Penitentiary Prognosis, discussed at length with the patient. Dispo--PT/OT ordered for functional optimization, to be dialyzed today. CM/SW on board for further delineation VS, I&O, 24H, Fishbone Vital Signs/I&O Vital Signs Date Time Temp Pulse Resp B/P (MAP) Pulse Ox O2 Delivery O2 Flow Rate FiO2 04/18/19 12:00 2.0 04/18/19 12:00 100.1 85 22 157/78 (104) 95 04/17/19 14:30 Nasal Cannula 04/17/19 10:13 45 I&O- Last 24 Hours up to 6 AM 04/18/19 06:00 Intake Total 0 ml Output Total 0 ml Balance 0 ml Laboratory Data 24H LABS Laboratory Tests 2 04/18/19 05:36: Nucleated Red Blood Cells % (auto) 0.0, Anion Gap 12, Glomerular Filtration Rate 10.2L, Blood Urea Nitrogen 41H, Creatinine 4.54H, Sodium Level 141, Potassium Level 4.8, Chloride Level 104, Carbon Dioxide Level 25, Calcium Level 7.9L CBC/BMP Laboratory Tests 04/18/19 05:36 Red Blood Count 4.08, Mean Corpuscular Volume 94.9, Mean Corpuscular Hemoglobin 28.2, Mean Corpuscular Hemoglobin Concent 29.7 L, Red Cell Distribution Width 19.6 H, Calcium Level 7.9 L Microbiology Microbiology 04/17/19 Blood Culture - Preliminary, Resulted No growth after 24 hours . All specim... 04/17/19 Blood Culture - Preliminary, Resulted No growth after 24 hours . All specim... KARLIE ENRIQUEZ MD April 18, 2019 14:33
[2019-04-18 17:15] VITALS: BP 133/72
[2019-04-18] MEDS: AZITHROMYCIN INJ 500 MG, VIAL MATE ADAPTER 1 EACH in D5W 250 ML IV SCH (17:35)
[2019-04-18] MEDS: ACETAMINOPHEN 325 MG TAB PO PRN (18:21)
[2019-04-18 20:00] VITALS: BP 156/82
--- NOTE | 2019-04-18 22:14 | IPN ---
DATE: 04/18/2019 SUBJECTIVE The patient was seen and examined at the bedside today morning. She was sitting up in the sofa. Her breathing is better today as compared with yesterday with the nebulizations, steroids and antibiotics that were given overnight. The patient had a low grade temperature, T-max was 100.1 degrees Fahrenheit today morning. Today is patient's regular day of dialysis. The patient was getting swallow evaluation done at the bedside when I saw her today morning and she was having difficulty drinking liquids so the recommendation was to give her nectar-thick liquids and level 2 solids OBJECTIVE Vital signs: Temperature is 100.1 degrees Fahrenheit, blood pressure 136/87, pulse is 88, respiratory rate of 24, saturating 100% on the 3 liters by nasal cannula. Intake and output: There is no urine output recorded. Weight in the bed scale is 34.9 kg. PHYSICAL EXAMINATION General: The patient is awake, alert, oriented times three, weak and cachectic, sitting up in the sofa, mild respiratory distress. Head and neck examination: Extraocular muscles intact. Pupils equally round and reactive to light. Neck is supple. There is mildly elevated jugular venous distention (JVD). Cardiovascular: S1, S2, regular rate. No edema of the bilateral lower extremities. Respiratory: The patient is wearing nasal cannula. Decreased air entry bilaterally at the bases. Mild expiratory rhonchi at the bases. Abdomen: Soft, large polycystic kidneys and liver is palpable. Musculoskeletal: She has chronic muscle wasting and she is cachectic and emaciated. TILE FINISHER: No focal deficit. Power is 05/05 in all extremities. LAB REVIEW: CBC showed a WBC 2.6, hemoglobin 11.5, platelets of 163. BMP showed sodium 141, potassium 4.8, chloride 104, bicarb 25, BUN 41, creatinine is 4.5, calcium is 7.9. Microbiology: Blood cultures are negative so far. CURRENT INPATIENT MEDICATIONS The patient's medications were all reviewed by me. Solu-Medrol dose has been decreased to 40 mg IV every 12 hourly. ASSESSMENT/PLAN 1. Acute hypoxemic and hypercapnic respiratory failure. It was secondary to COPD exacerbation and part of it is secondary to fluid overload. The patient is clinically getting better after getting steroids and nebulizations. She is going to have the dialysis done today in the afternoon. Steroid dose has been decreased by the primary team. 2. Acute decompensated diastolic congestive heart failure. The patient will get dialysis today and 1.5 liters of fluid will be removed as tolerated by her blood pressure. 3. End-stage renal disease on hemodialysis. The patient's regular dialysis days are Tuesday, Tuesday, Tuesday. She is scheduled to be dialyzed in the afternoon and fluid removal will be as mentioned above. 4. History of hypertension. Blood pressures are elevated. I am going to restart the patient on amlodipine but a lower dose of 5 mg by mouth daily. 5. Protein calorie malnutrition. The patient got the swallow evaluation done. She cannot drink liquids and nectar-thick liquid and level 2 solids have been started.
[2019-04-18 23:59] VITALS: BP 156/81
[2019-04-19] MEDS: IPRATROPIUM 0.5MG/ALBUTEROL 2.5MG INH SOL UD 3ML (DUONEB)(J7620) NEB SCH ×4 (01:38→18:35)
[2019-04-19 04:00] VITALS: BP 156/95
[2019-04-19] MEDS: LEVOTHYROXINE 100 MCG (0.1MG) VIAL IV SCH (05:49)
[2019-04-19] MEDS: HEPARIN SOD (PORCINE) 5000 UNITS/ML VIAL SC SCH ×3 (05:51→21:19)
[2019-04-19 07:47] LABS: HEMATOCRIT 36.9 % (36.0-47.0); HEMOGLOBIN 11.2 g/dl (12.0-15.5); MEAN CORPUSCULAR HEMOGLOBIN 27.9 pg (27.0-33.0); MEAN CORPUSCULAR HGB CONC 30.4 g/dl (32.0-36.5); PLATELET COUNT, AUTOMATED 178 10^3/uL (150-450); RED BLOOD COUNT 4.01 10^6/uL (4.00-5.40); WHITE BLOOD COUNT 4.2 10^3/uL (4.0-10.0)
[2019-04-19 08:00] VITALS: BP 151/85
[2019-04-19 08:18] LABS: CALCIUM LEVEL 8.2 MG/DL (8.8-10.2); CREATININE FOR GFR 3.07 MG/DL (0.55-1.30); POTASSIUM SERUM 4.2 MEQ/L (3.5-5.1)
[2019-04-19] MEDS: amLODIPine 5 MG TAB PO SCH (08:34)
[2019-04-19] MEDS: methylPREDNISolone INJ 125 MG/2 ML VIAL (J2930) IV SCH ×2 (10:12→21:19)
[2019-04-19 12:00] VITALS: BP 150/81
[2019-04-19] MEDS: AZITHROMYCIN INJ 500 MG, VIAL MATE ADAPTER 1 EACH in D5W 250 ML IV SCH (13:27)
--- NOTE | 2019-04-19 13:45 | IPNPDOC ---
Subjective Date Seen The patient was seen on 04/19/19. Subjective Chief Complaint/HPI Patient seen and examined at the bedside. She reports that she is feeling better today, and has been tolerating a by mouth diet. She is scheduled to work with physical therapy today. States that her respiratory status is getting close to baseline. Otherwise, denies any acute overnight events. Objective Physical Examination General Exam: Positive: Alert, Cooperative, No Acute Distress, Other (Cachectic appearing) ENT Exam: Positive: Atraumatic, Other ENT (Bitemporal wasting noted) Chest Exam: Positive: Diminished; Negative: Rales, Rhonchi Heart Exam: Positive: Rate Normal, Normal S1, Normal S2 Abdomen Exam: Positive: Soft; Negative: Tenderness Extremity Exam: Negative: Tenderness, Swelling Assessment /Plan Plan/VTE VTE Prophylaxis Ordered?: Yes Plan Acute on Chronic Hypercarbic Respiratory Failure, COPD Exacerbation CXR with no acute infiltrate noted Patient noted to have a CO2 of 69 with a pH of 7.20 on admission, improved to 60 and 7.27 respectively with supportive treatment. Patient has refused BiPAP th erapy on multiple occasions despite discussing risks, benefits, and alternative options. The patient and her family has verbalized understanding of the same. Patient able to speak in full sentences this morning and does not appear to be in any respiratory distress at rest Pulmonary input appreciated Cont IV Steroids, Zithro, and serial nebulizer therapy as ordered--We will wean IV Steroids as tolerated PT on board for functional optimization ESRD on HD Nephro consulted for management of dialysis Tobacco Abuse Counseled at length about cessation Hypothyroidism Cont Levothyroxine Severe Protein Calorie Malnourishment BMI noted to be 14.5 DVT Prophylaxis Heparin SC Code Status: DNR/DNI Poor Printing Gray Cloth Tender Prognosis, discussed at length with the patient. Dispo--PT/OT on boardfor functional optimization, to be dialyzed today. CM/SW on board for further delineation, as there is concern about the patient's families' ability to take care of Mrs. Blackmon. VS, I&O, 24H, Fishbone Vital Signs/I&O Vital Signs Date Time Temp Pulse Resp B/P (MAP) Pulse Ox O2 Delivery O2 Flow Rate FiO2 04/19/19 12:00 98.1 78 17 150/81 (104) 100 2.0 04/17/19 14:30 Nasal Cannula 04/17/19 10:13 45 I&O- Last 24 Hours up to 6 AM 04/19/19 06:00 Intake Total 730 ml Output Total 1500 ml Balance -770 ml Laboratory Data 24H LABS Laboratory Tests 2 04/19/19 07:29: Nucleated Red Blood Cells % (auto) 0.0, Anion Gap 8, Glomerular Filtration Rate 16.0L, Blood Urea Nitrogen 28H, Creatinine 3.07H, Sodium Level 138, Potassium Level 4.2, Chloride Level 101, Carbon Dioxide Level 29, Calcium Level 8.2L CBC/BMP Laboratory Tests 04/19/19 07:29 Red Blood Count 4.01, Mean Corpuscular Volume 92.0, Mean Corpuscular Hemoglobin 27.9, Mean Corpuscular Hemoglobin Concent 30.4 L, Red Cell Distribution Width 19.8 H, Calcium Level 8.2 L Microbiology Microbiology 04/17/19 Blood Culture - Preliminary, Resulted No Growth after 48 hours. All Specime... 04/17/19 Blood Culture - Preliminary, Resulted No Growth after 48 hours. All Specime... KARLIE ENRIQUEZ MD April 19, 2019 13:45
[2019-04-19 16:00] VITALS: BP 129/77
[2019-04-19 20:00] VITALS: BP 124/56
--- NOTE | 2019-04-19 21:10 | IPN ---
DATE: 04/19/2019 SUBJECTIVE The patient was seen and examined at the bedside today morning. She is afebrile, hemodynamically stable. She was dialyzed yesterday. 1.5 liters of fluid was removed. Her shortness of breath is back to her baseline. OBJECTIVE Vital signs: Temperature is 98.1 degrees Fahrenheit. Blood pressure 150/81, pulse is 78, respiratory rate of 17, saturating 100% on nasal cannula at 2 liters. Intake and output: Urine output recorded as 50 mL. Fluid removal with hemodialysis was 1.5 liters yesterday. Weight in the bed scale is 34 kg. PHYSICAL EXAMINATION General: The patient is awake, alert, and oriented times three. Sitting up in the bed, weak and cachectic, chronically malnourished. Head and neck examination: Extraocular muscles intact. Pupils equally round and reactive to light. Mucous membranes are moist. Neck is supple. Cardiovascular: S1, S2, regular rate. No edema of the bilateral lower extremities. Respiratory: The patient has silent chest. Very diminished breath sounds bilaterally. She has chronic end stage COPD with oxygen dependence. Abdomen: Soft, large polycystic kidneys and liver is palpable. PROJECT SCIENTIST: No focal deficit. Power is 5/5 in all extremities. Musculoskeletal: She has clubbing of the fingernails. There is no cyanosis and she has chronic muscle wasting. LAB REVIEW: CBC showed a WBC 4.2, hemoglobin 11.2, platelets of 178. BMP showed sodium 138, potassium 4.2, chloride 101, bicarb 29, BUN 28, creatinine is 3.07, calcium is 8.2. CURRENT INPATIENT MEDICATIONS: The patient's medications were all reviewed by me. There is no change in the medications today as compared with yesterday. ASSESSMENT/PLAN 1. Acute hypoxic and hypercapnic respiratory failure. It has resolved after treatment of her COPD and fluid removal. The patient is back to her baseline. 2. Acute decompensated diastolic congestive heart failure. Volume status is optimal. Her new dry weight should be 34 kg now. 1.5 liter of fluid was removed yesterday. 3. End-stage renal disease on hemodialysis. The patient regular dialysis days are Tuesday, Tuesday, Tuesday. She will be dialyzed tomorrow morning as per her regular schedule. 4. Hypertension. Blood pressure is optimal now. She has been started on amlodipine 5 mg daily. If blood pressures stays high then she can be started back on her home dose of 10 mg daily. 6. Protein calorie malnutrition. Continue nectar-thick liquids and level 2 solids.
[2019-04-19 23:59] VITALS: BP 156/80
[2019-04-20] MEDS: IPRATROPIUM 0.5MG/ALBUTEROL 2.5MG INH SOL UD 3ML (DUONEB)(J7620) NEB SCH ×4 (02:00→20:21)
[2019-04-20 04:00] VITALS: BP 158/84
[2019-04-20] MEDS: LEVOTHYROXINE 100 MCG (0.1MG) VIAL IV SCH (05:31)
[2019-04-20] MEDS: HEPARIN SOD (PORCINE) 5000 UNITS/ML VIAL SC SCH ×3 (05:32→22:00)
[2019-04-20 06:01] LABS: HEMATOCRIT 35.8 % (36.0-47.0); HEMOGLOBIN 11.1 g/dl (12.0-15.5); MEAN CORPUSCULAR HEMOGLOBIN 29.8 pg (27.0-33.0); PLATELET COUNT, AUTOMATED 143 10^3/uL (150-450); RED BLOOD COUNT 3.73 10^6/uL (4.00-5.40); WHITE BLOOD COUNT 3.9 10^3/uL (4.0-10.0)
[2019-04-20 06:28] LABS: CALCIUM LEVEL 7.5 MG/DL (8.8-10.2); GLOMERULAR FILTRATION RATE 11.8 (>39); MAGNESIUM LEVEL 2.2 MG/DL (1.8-2.4); POTASSIUM SERUM 3.8 MEQ/L (3.5-5.1)
[2019-04-20 08:20] VITALS: BP 139/95
--- NOTE | 2019-04-20 11:12 | IPNPDOC ---
Subjective Date Seen The patient was seen on 04/20/19. Subjective Chief Complaint/HPI Patient seen and examined at the bedside during dialysis. No acute complaints offered, no overnight events noted. Objective Physical Examination General Exam: Positive: Alert, Cooperative, No Acute Distress, Other (Cachectic appearing) ENT Exam: Positive: Atraumatic, Other ENT (Bitemporal wasting) Chest Exam: Positive: Diminished; Negative: Rales, Rhonchi Heart Exam: Positive: Rate Normal, Normal S1, Normal S2 Abdomen Exam: Positive: Soft; Negative: Tenderness Extremity Exam: Negative: Tenderness, Swelling Assessment /Plan Plan/VTE VTE Prophylaxis Ordered?: Yes Plan Acute on Chronic Hypercarbic Respiratory Failure, COPD Exacerbation CXR with no acute infiltrate noted Respiratory status back to baseline Pulmonary input appreciated IV Steroids transitioned to PO, s/p Zithro, and serial nebulizer therapy as orde red PT on board for functional optimization ESRD on HD Nephro consulted for management of dialysis Tobacco Abuse Counseled at length about cessation Hypothyroidism Cont Levothyroxine Severe Protein Calorie Malnourishment BMI noted to be 14.5 DVT Prophylaxis Heparin SC Code Status: DNR/DNI Poor Detention Prognosis, discussed at length with the patient. Dispo--PT/OT on board for functional optimization, to be dialyzed today. CM/SW on board for further delineation, as there is concern about the patient's families' ability to take care of Mrs. Blackmon. VS, I&O, 24H, Fishbone Vital Signs/I&O Vital Signs Date Time Temp Pulse Resp B/P (MAP) Pulse Ox O2 Delivery O2 Flow Rate FiO2 04/20/19 08:20 98.7 86 18 139/95 (110) 95 2.0 04/17/19 14:30 Nasal Cannula 04/17/19 10:13 45 I&O- Last 24 Hours up to 6 AM 04/20/19 06:00 Intake Total 495 ml Output Total 50 ml Balance 445 ml Laboratory Data 24H LABS Laboratory Tests 2 04/20/19 05:24: Nucleated Red Blood Cells % (auto) 0.0, Anion Gap 8, Glomerular Filtration Rate 11.8L, Blood Urea Nitrogen 50#H, Creatinine 4.00H, Sodium Level 138, Potassium Level 3.8, Chloride Level 101, Carbon Dioxide Level 29, Calcium Level 7.5L, Magnesium Level 2.2 CBC/BMP Laboratory Tests 04/20/19 05:24 Red Blood Count 3.73 L, Mean Corpuscular Volume 96.0, Mean Corpuscular Hemoglobin 29.8, Mean Corpuscular Hemoglobin Concent 31.0 L, Red Cell Distribution Width 19.6 H, Calcium Level 7.5 L Microbiology Microbiology 04/17/19 Blood Culture - Preliminary, Resulted No Growth after 72 hours. All specime... 04/17/19 Blood Culture - Preliminary, Resulted No Growth after 72 hours. All specime... KARLIE ENRIQUEZ MD April 20, 2019 11:12
[2019-04-20 12:00] VITALS: BP 119/81
[2019-04-20] MEDS: amLODIPine 5 MG TAB PO SCH (12:17)
[2019-04-20] MEDS: predniSONE 20 MG TAB PO SCH (12:24)
[2019-04-20] MEDS: AZITHROMYCIN INJ 500 MG, VIAL MATE ADAPTER 1 EACH in D5W 250 ML IV SCH (13:27)
[2019-04-20] MEDS ORDERED: SLF 3 ML SYR IV PRN (14:00)
[2019-04-20] MEDS: SLF 3 ML SYR IV SCH ×2 (14:17→22:00)
[2019-04-20 16:00] VITALS: BP 147/86
[2019-04-20 20:00] VITALS: BP 158/83
[2019-04-20 23:59] VITALS: BP 140/90
[2019-04-21] MEDS: IPRATROPIUM 0.5MG/ALBUTEROL 2.5MG INH SOL UD 3ML (DUONEB)(J7620) NEB SCH ×4 (02:27→20:00)
[2019-04-21 04:00] VITALS: BP 150/90
[2019-04-21 04:48] LABS: HEMATOCRIT 37.3 % (36.0-47.0); HEMOGLOBIN 11.5 g/dl (12.0-15.5); MEAN CORPUSCULAR HEMOGLOBIN 29.7 pg (27.0-33.0); MEAN CORPUSCULAR HGB CONC 30.8 g/dl (32.0-36.5); MEAN CORPUSCULAR VOLUME 96.4 fl (80.0-96.0); PLATELET COUNT, AUTOMATED 142 10^3/uL (150-450); RED BLOOD COUNT 3.87 10^6/uL (4.00-5.40)
[2019-04-21 05:10] LABS: CALCIUM LEVEL 7.8 MG/DL (8.8-10.2); CREATININE FOR GFR 2.79 MG/DL (0.55-1.30); GLOMERULAR FILTRATION RATE 17.9 (>39); MAGNESIUM LEVEL 2.1 MG/DL (1.8-2.4); POTASSIUM SERUM 3.7 MEQ/L (3.5-5.1)
[2019-04-21] MEDS: SLF 3 ML SYR IV SCH ×3 (05:36→20:28)
[2019-04-21] MEDS: LEVOTHYROXINE 100 MCG (0.1MG) VIAL IV SCH (05:36)
[2019-04-21] MEDS: HEPARIN SOD (PORCINE) 5000 UNITS/ML VIAL SC SCH ×3 (05:36→20:27)
[2019-04-21 08:00] VITALS: BP 167/93
[2019-04-21] MEDS: predniSONE 20 MG TAB PO SCH (09:02)
[2019-04-21] MEDS: amLODIPine 5 MG TAB PO SCH (09:03)
[2019-04-21 12:00] VITALS: BP 175/92
[2019-04-21] MEDS: LOSARTAN 50 MG TAB PO SCH (12:19)
--- NOTE | 2019-04-21 13:43 | IPNPDOC ---
Subjective Date Seen The patient was seen on 04/21/19. Subjective Chief Complaint/HPI Patient seen and examined at the bedside. No acute overnight events noted. Objective Physical Examination General Exam: Positive: Alert, Cooperative, No Acute Distress, Other (Cachectic appearing) ENT Exam: Positive: Atraumatic, Other ENT (Bitemporal wasting) Chest Exam: Positive: Diminished; Negative: Rales, Rhonchi Heart Exam: Positive: Rate Normal, Normal S1, Normal S2 Abdomen Exam: Positive: Soft; Negative: Tenderness Extremity Exam: Negative: Tenderness, Swelling Assessment /Plan Plan/VTE VTE Prophylaxis Ordered?: Yes Plan Acute on Chronic Hypercarbic Respiratory Failure, COPD Exacerbation CXR with no acute infiltrate noted Respiratory status back to baseline Pulmonary input appreciated IV Steroids transitioned to PO, s/p Zithro, and serial nebulizer therapy as ordered PT on board for functional optimization ESRD on HD Nephro consulted for management of dialysis Hypertension Continue losartan, Norvasc Tobacco Abuse Counseled at length about cessation Hypothyroidism Cont Levothyroxine Severe Protein Calorie Malnourishment BMI noted to be 14.5 DVT Prophylaxis Heparin SC Code Status: DNR/DNI Poor Sculpture Instructor Prognosis, discussed at length with the patient. Dispo--CM/SW on board for further delineation, as there is concern about the patient's families' ability to take care of Mrs. Blackmon. I did place a call to the patient's son bunny Blackmon and [id number]-lla Andria Blackmon this afternoon, regarding being able to manage the patient at home and discharge plans. However, there was no answer. Will follow up again. VS, I&O, 24H, Dariusbone Vital Signs/I&O Vital Signs Date Time Temp Pulse Resp B/P (MAP) Pulse Ox O2 Delivery O2 Flow Rate FiO2 04/21/19 12:19 175/92 04/21/19 12:00 99.8 96 22 99 2.0 04/17/19 14:30 Nasal Cannula 04/17/19 10:13 45 I&O- Last 24 Hours up to 6 AM 04/21/19 06:00 Intake Total 480 ml Output Total 1725 ml Balance -1245 ml Laboratory Data 24H LABS Laboratory Tests 2 04/21/19 04:14: Nucleated Red Blood Cells % (auto) 0.0, Anion Gap 7L, Glomerular Filtration Rate 17.9L, Blood Urea Nitrogen 35H, Creatinine 2.79H, Sodium Level 138, Potassium Level 3.7, Chloride Level 103, Carbon Dioxide Level 28, Calcium Level 7.8L, Magnesium Level 2.1 CBC/BMP Laboratory Tests 04/21/19 04:14 Red Blood Count 3.87 L, Mean Corpuscular Volume 96.4 H, Mean Corpuscular Hemoglobin 29.7, Mean Corpuscular Hemoglobin Concent 30.8 L, Red Cell Distribution Width 19.2 H, Calcium Level 7.8 L Microbiology Microbiology 04/17/19 Blood Culture - Preliminary, Resulted No Growth after 72 hours. All specime... 04/17/19 Blood Culture - Preliminary, Resulted No Growth after 72 hours. All specime... KARLIE ENRIQUEZ MD Apr 21, 2019 13:43
--- NOTE | 2019-04-21 14:12 | IPN ---
DATE: 04/20/2019 SUBJECTIVE: The patient was seen and examined at the bedside today, morning, during hemodialysis procedure. She was tolerating the hemodialysis procedure well. She reports she is feeling much better. Her shortness of breath is significantly improved, and she is back to her baseline. OBJECTIVE: Vital signs: Temperature is 98.7 degrees Fahrenheit, blood pressure 139/95, pulse is 86, respiratory rate of 18, saturating 95% on nasal cannula at 2 liters. Intake and output: Urine output recorded is 100 mL, weight on the bed scale is 34.1 kg. PHYSICAL EXAMINATION: General: The patient is awake, alert, oriented times three, weak and cachectic, chronically malnourished, laying in bed getting hemodialysis done. Head and neck exam: Extraocular muscles intact. Pupils equally round and reactive to light. Mucous membranes are moist. Neck is supple. There is mildly elevated jugular venous distention (JVD). Cardiovascular: S1, S2, regular rate. No edema of the bilateral lower extremities. Respiratory: Decreased breath sounds at the bases, otherwise no active rales or rhonchi. She is oxygen (O2) dependent because of chronic obstructive pulmonary disease (COPD). Abdomen: Soft, large polycystic kidneys and liver is palpable. Central Nervous System (RUBBER MILL OPERATOR): No focal deficit, power is 5/5 in all extremities. LAB REVIEW: CBC showed a WBC of 3.9, hemoglobin 11.1, platelets of 143. BMP showed sodium 138, potassium 3.8, chloride 101, bicarbonate 29, BUN 50, creatinine is 4, calcium 7.5, magnesium 2.2. Microbiology: Blood cultures are all negative. CURRENT INPATIENT MEDICATIONS: The patient's medications were all reviewed by me. IV azithromycin has been stopped. Solu-Medrol has been changed to prednisone 40 mg by mouth daily. ASSESSMENT/PLAN: 1. End-stage renal disease - on hemodialysis. Patient is being dialyzed today according to regular Tuesday, Tuesday, Tuesday schedule. I will try to remove at least two liters of fluid as tolerated by her blood pressure. 2. Acute decompensated diastolic congestive heart failure. As mentioned above, two liters of fluid will be removed. Her dry weight will be changed to 32 kg after dialysis today. 3. Acute hypoxic and hypercapnic respiratory failure. It was secondary to a combination of decompensated congestive heart failure (CHF) and chronic obstructive pulmonary disease (COPD). She is currently on oral steroids, nebulizations and volume status is much better with dialysis and fluid removal. 4. Hypertension. Blood pressure is acceptable. Continue current dose of amlodipine 5 mg daily.
[2019-04-21 16:00] VITALS: BP 147/81
[2019-04-21] MEDS: OMEPRAZOLE 20 MG CAP PO SCH (16:07)
[2019-04-21] MEDS: ACETAMINOPHEN 325 MG TAB PO PRN (16:08)
[2019-04-21 17:00] VITALS: BP 137/81
[2019-04-21] MEDS: SYMBICORT 160/4.5MCG INHALER 6GM INH SCH (20:14)
[2019-04-21] MEDS: ESCITALOPRAM OXALATE 10 MG TAB (LEXAPRO) PO SCH (20:27)
[2019-04-21 22:00] VITALS: BP 137/84
[2019-04-22] VITALS (7 sets, daily range): BP systolic 149–174; BP diastolic 87–98
[2019-04-22] MEDS: IPRATROPIUM 0.5MG/ALBUTEROL 2.5MG INH SOL UD 3ML (DUONEB)(J7620) NEB SCH ×4 (01:50→20:00)
[2019-04-22] MEDS: HEPARIN SOD (PORCINE) 5000 UNITS/ML VIAL SC SCH ×3 (06:00→20:08)
[2019-04-22 06:34] LABS: HEMATOCRIT 35.5 % (36.0-47.0); MEAN CORPUSCULAR HEMOGLOBIN 29.6 pg (27.0-33.0); MEAN CORPUSCULAR VOLUME 95.7 fl (80.0-96.0); PLATELET COUNT, AUTOMATED 121 10^3/uL (150-450); RED BLOOD COUNT 3.71 10^6/uL (4.00-5.40); WHITE BLOOD COUNT 6.9 10^3/uL (4.0-10.0)
[2019-04-22] MEDS: SLF 3 ML SYR IV SCH ×3 (06:50→20:08)
[2019-04-22] MEDS: LEVOTHYROXINE 100 MCG (0.1MG) VIAL IV SCH (06:50)
[2019-04-22 07:07] LABS: CALCIUM LEVEL 7.6 MG/DL (8.8-10.2); CREATININE FOR GFR 4.25 MG/DL (0.55-1.30); MAGNESIUM LEVEL 2.3 MG/DL (1.8-2.4); POTASSIUM SERUM 4.6 MEQ/L (3.5-5.1)
[2019-04-22] MEDS: SYMBICORT 160/4.5MCG INHALER 6GM INH SCH ×2 (07:40→20:21)
[2019-04-22] MEDS: OMEPRAZOLE 20 MG CAP PO SCH (10:20)
[2019-04-22] MEDS: predniSONE 20 MG TAB PO SCH (10:20)
[2019-04-22] MEDS: LOSARTAN 50 MG TAB PO SCH (10:21)
[2019-04-22] MEDS: amLODIPine 10 MG TAB PO SCH (10:22)
--- NOTE | 2019-04-22 13:58 | IPNPDOC ---
Subjective Date Seen The patient was seen on 04/22/19. Subjective Chief Complaint/HPI Patient seen and examined at the bedside. No acute overnight events noted. Objective Physical Examination General Exam: Positive: Alert, Cooperative, No Acute Distress, Other (severely Cachectic appearing) ENT Exam: Positive: Atraumatic, Other ENT (Bitemporal wasting) Chest Exam: Positive: Diminished; Negative: Rales, Rhonchi Heart Exam: Positive: Rate Normal, Normal S1, Normal S2 Abdomen Exam: Positive: Soft; Negative: Tenderness Extremity Exam: Negative: Tenderness, Swelling Assessment /Plan Plan/VTE VTE Prophylaxis Ordered?: Yes Plan Acute on Chronic Hypercarbic Respiratory Failure, COPD Exacerbation CXR with no acute infiltrate noted Respiratory status back to baseline Pulmonary input appreciated IV Steroids transitioned to PO, s/p Zithro, and serial nebulizer therapy as ordered PT on board for functional optimization ESRD on HD Nephro consulted for management of dialysis Hypertension Continue losartan, Norvasc Tobacco Abuse Counseled at length about cessation Hypothyroidism Cont Levothyroxine Severe Protein Calorie Malnourishment BMI noted to be 14.5 DVT Prophylaxis Heparin SC Code Status: DNR/DNI Poor Mcc Prognosis, discussed at length with the patient. Dispo--CM/SW on board for further delineation, as there is concern about the patient's families' ability to take care of Mrs. Blackmon. VS, I&O, 24H, Dariusbone Vital Signs/I&O Vital Signs Date Time Temp Pulse Resp B/P (MAP) Pulse Ox O2 Delivery O2 Flow Rate FiO2 04/22/19 11:14 2.0 04/22/19 10:22 78 152/87 04/22/19 10:00 99.4 20 98 04/17/19 14:30 Nasal Cannula 04/17/19 10:13 45 I&O- Last 24 Hours up to 6 AM 04/22/19 06:00 Intake Total 600 ml Output Total 150 ml Balance 450 ml Laboratory Data 24H LABS Laboratory Tests 2 04/22/19 05:53: Nucleated Red Blood Cells % (auto) 0.0, Anion Gap 8, Glomerular Filtration Rate 11.0L, Blood Urea Nitrogen 62#H, Creatinine 4.25#H, Sodium Level 137, Potassium Level 4.6#, Chloride Level 101, Carbon Dioxide Level 28, Calcium Level 7.6L, Magnesium Level 2.3 CBC/BMP Laboratory Tests 04/22/19 05:53 Red Blood Count 3.71 L, Mean Corpuscular Volume 95.7, Mean Corpuscular Hemoglobin 29.6, Mean Corpuscular Hemoglobin Concent 31.0 L, Red Cell Distribution Width 19.0 H, Calcium Level 7.6 L Microbiology Microbiology 04/17/19 Blood Culture - Final, Complete NO GROWTH AFTER 5 DAYS 04/17/19 Blood Culture - Final, Complete NO GROWTH AFTER 5 DAYS KARLIE ENRIQUEZ MD Apr 22, 2019 13:58
--- NOTE | 2019-04-22 16:09 | IPN ---
DATE: 04/21/2019 SUBJECTIVE: Patient was seen and examined at the bedside today morning. She is afebrile, hemodynamically stable. She denies any active complaints of shortness of breath, is back to baseline. Patient's blood pressures were high. I have started her on losartan 50 mg by mouth daily OBJECTIVE: VITAL SIGNS: Temperature is 99.8 degrees Fahrenheit, blood pressure 175/92, pulse is 96, respiratory rate of 20, saturating 99% on 2 liters. INTAKE AND OUTPUT: Urine output recorded 275 mL. Ultrafiltration with hemodialysis was 1.5 liters. Weight in the bed scale is 35 kg. PHYSICAL EXAMINATION: GENERAL: Patient is awake, alert, oriented times three, weak and cachectic, chronically malnourished. HEAD AND NECK EXAM: Pupils are equally round and reactive to light. Mucous membranes are moist. Neck is supple. There is no jugular venous distention (JVD). CARDIOVASCULAR: S1, S2. Regular rate. No edema of the bilateral lower extremities. RESPIRATORY: Patient has end-stage chronic obstructive pulmonary disease (COPD) and she is oxygen dependent. Decreased breath sounds at the bases. Otherwise, no active rales or rhonchi. ABDOMEN: Soft. She has large polycystic kidneys and liver. CENTRAL NERVOUS SYSTEM (STUDENT RECORDS SPECIALIST): No focal deficit. Power is 5/5 in all extremities. LABORATORY REVIEW: Complete blood count (CBC) showed a WBC of 6, hemoglobin 11.5, platelets of 142. Basic metabolic panel (BMP) showed sodium 138 of potassium 3.7, chloride 103, bicarbonate 28, BUN 35, creatinine is 2.7. CURRENT INPATIENT MEDICATIONS: Patient's medications were all reviewed by me. I have started the patient on losartan 50 mg by mouth daily. She continues to be on amlodipine 5 mg daily. She is on prednisone 40 mg daily. No other change in the medications. ASSESSMENT AND PLAN 1. End-stage renal disease on hemodialysis. Patient's regular dialysis days are Tuesday, Tuesday, Tuesday. She was dialyzed yesterday. Next hemodialysis will be as per her regular schedule on Tuesday. 2. Acute decompensated diastolic congestive heart failure. Volume status is optimal. Continue the fluid restriction. 3. Acute hypoxic and hypercapnic respiratory failure. It is resolved now. Patient is back to her baseline COPD with oxygen dependence. She is currently on prednisone. 4. Hypertension. Blood pressure is uncontrolled. Continue amlodipine 5 mg daily. She has been restarted on losartan 50 mg daily. Her blood pressures are increased and further dose of amlodipine or losartan will be increased.
[2019-04-22] MEDS: ESCITALOPRAM OXALATE 10 MG TAB (LEXAPRO) PO SCH (20:08)
[2019-04-23] MEDS: IPRATROPIUM 0.5MG/ALBUTEROL 2.5MG INH SOL UD 3ML (DUONEB)(J7620) NEB SCH ×4 (01:50→18:05)
[2019-04-23 02:00] VITALS: BP 146/78
[2019-04-23] MEDS: amLODIPine 10 MG TAB PO SCH (05:38)
[2019-04-23] MEDS: predniSONE 20 MG TAB PO SCH (05:39)
[2019-04-23] MEDS: OMEPRAZOLE 20 MG CAP PO SCH (05:39)
[2019-04-23] MEDS: SLF 3 ML SYR IV SCH ×3 (05:40→21:01)
[2019-04-23] MEDS: LOSARTAN 50 MG TAB PO SCH (05:40)
[2019-04-23] MEDS: HEPARIN SOD (PORCINE) 5000 UNITS/ML VIAL SC SCH ×3 (05:40→21:01)
[2019-04-23] MEDS: LEVOTHYROXINE 100 MCG (0.1MG) VIAL IV SCH (05:40)
[2019-04-23 06:00] VITALS: BP 160/91
[2019-04-23 06:23] LABS: HEMATOCRIT 37.5 % (36.0-47.0); HEMOGLOBIN 11.5 g/dl (12.0-15.5); MEAN CORPUSCULAR HEMOGLOBIN 28.5 pg (27.0-33.0); MEAN CORPUSCULAR HGB CONC 30.7 g/dl (32.0-36.5); MEAN CORPUSCULAR VOLUME 92.8 fl (80.0-96.0); PLATELET COUNT, AUTOMATED 161 10^3/uL (150-450); RED BLOOD COUNT 4.04 10^6/uL (4.00-5.40); WHITE BLOOD COUNT 7.9 10^3/uL (4.0-10.0)
[2019-04-23 06:47] LABS: CALCIUM LEVEL 7.9 MG/DL (8.8-10.2); CREATININE FOR GFR 4.94 MG/DL (0.55-1.30); GLOMERULAR FILTRATION RATE 9.2 (>39); MAGNESIUM LEVEL 2.2 MG/DL (1.8-2.4); POTASSIUM SERUM 4.4 MEQ/L (3.5-5.1)
[2019-04-23] MEDS ORDERED: LIDOCAINE 1% SDV 5 ML VIAL SQ ONE (07:45)
[2019-04-23] MEDS: SYMBICORT 160/4.5MCG INHALER 6GM INH SCH ×2 (08:00→19:41)
--- NOTE | 2019-04-23 09:06 | IPN ---
DATE: 04/22/2019 SUBJECTIVE: Karina is seen and examined this morning at the bedside. She denies any overnight events or complaints. She continues on her usual supplemental oxygen and she is anxious to go home. She reports her breathing has improved. Vital Signs: Temperature 99.4, pulse 87, respiratory rate 20, blood pressure 152/87, saturating 98% on 2 liters nasal cannula. Intake yesterday was 600. Weight in the bed scale today is not recorded. General: The patient is seen lying in bed, cachectic, emaciated, chronically malnourished, in no acute distress. Extraocular muscles are intact. Bitemporal wasting. Pupils round and reactive to light. Mucous membranes are moist. Neck is supple. The jugular veins are not elevated. Cardiac: S1 and S2, regular rate. No peripheral edema. Respiratory: She has diminished breath sounds bilaterally and prolonged expiration. She is seen on her chronic supplemental oxygen. There is no tachypnea nor accessory muscle use. Extremities show severe muscle wasting. The left upper extremity fistula is patent with thrill and bruit. Abdomen: Soft and is distended because of her large polycystic kidneys. Neurologic: No focal deficit. She is at baseline mentation. LABORATORY DATA: White count 6.9, hemoglobin 11.0, platelets 121. Sodium 137, potassium 4.6. Blood cultures with no growth. INPATIENT MEDICATIONS: Reviewed by myself. I note her amlodipine was increased to 10 mg by mouth daily, which is what she takes at home as well. Remainder of medications are unchanged from prior. PROBLEMS: 1. End-stage renal disease on hemodialysis on Tuesday, Tuesday, Tuesday schedule. Next dialysis will be on Tuesday. Volume status and electrolytes are acceptable. Fistula is in good use. No changes are being made to the chronic prescription. Her dry weight has been adjusted. 2. Diastolic congestive heart failure with recent decompensation. She is tolerating fluid removal with hemodialysis. She continues on an oral fluid restriction. 3. Acute on chronic hypercarbic respiratory failure/COPD exacerbation, Now on oral prednisone and status post antibiotics. Continues with her usual supplemental oxygen, bronchodilators and inhaled steroids. Her overall prognosis is poor and she has end stage lung disease. 4. Severe protein calorie malnutrition, failure to thrive. Encourage oral intake and dietary protein. 5. Hypertension. Continue on amlodipine and losartan. DISPOSITION: The patient is stable from a nephrology point of view and discharge planning is as per the primary team who are in conversation with the patient's family.
[2019-04-23 10:00] VITALS: BP 153/87
--- NOTE | 2019-04-23 13:24 | IPN ---
DATE: 04/23/2019 SUBJECTIVE: Patient seen and examined this morning at the bedside. She denies any overnight events or complaints. She is for dialysis this later afternoon and she inquires in regards to discharge planning. She continues on her usual chronic supplemental oxygen. Temperature 97.6, pulse 90, respiratory rate 20, blood pressure 153/87, saturating 96% on 2 liters nasal cannula. Intake yesterday was 2 liters, there were 2 bowel movements and 2 voids recorded yesterday. Weight in the bed scale today is not recorded. General: The patient is seen lying in bed, cachectic, emaciated, chronically malnourished, in no acute distress. Extraocular muscles are intact. Bitemporal wasting. Pupils are round and reactive to light. Mucous membranes are moist. Her neck is supple. The jugular veins are very mildly elevated. Cardiac: S1 and S2, regular rate. No peripheral edema. Respiratory: Diminished breath sounds bilaterally and prolonged expiration. She is seen on her chronic nasal cannula. There is no tachypnea nor accessory muscle use. There is occasional rhonchus. The extremities show severe muscle wasting. There is no edema in the peripheries. The left upper extremity fistula is patent with thrill and bruit. Abdomen is soft and her large polycystic kidneys are palpable. Neurologic: No focal deficit. She is at baseline mentation. LABORATORIES: White count 7.9, hemoglobin 11.5, platelets 161. Sodium 135, potassium 4.4, bicarbonate 26. INPATIENT MEDICATIONS: Reviewed by myself and noted her levothyroxine dose was adjusted by the primary team. Her remainder of medications are unchanged from prior. PROBLEMS: 1. End-stage renal disease on hemodialysis on a Tuesday, Tuesday, Tuesday schedule. The patient is for dialysis this afternoon. We will remove 1.5 to 2 liters as tolerated. Her electrolytes and volume status are fairly acceptable. The fistula is in good use. No changes are being made to the chronic prescription and she is tolerating her treatments without issue. 2. Diastolic congestive heart failure with recent decompensation. She is tolerating fluid removal with hemodialysis. We will removed 1.5 to 2 liters as tolerated by hemodynamics today. 3. Acute on chronic hypercarbic respiratory failure/COPD exacerbation. Continues on oral prednisone, tapered per the primary team and status post antibiotics. She is on her usual supplemental chronic oxygen and the continues on bronchodilators and inhaled steroids. She is symptomatically improved, although her overall prognosis is poor and she has end stage lung disease. 4. Severe protein calorie malnutrition, failure to thrive. Encourage oral intake and dietary protein. Her albumin is fairly reasonable at 3.6. Her body mass index (BMI) is very poor. 5. Hypertension. Blood pressures are elevated this morning systolic 150s to 160s, but it is expected to improve with dialysis, ultrafiltration and fluid removal. Continue amlodipine and losartan. 6. Hypothyroidism. Her levothyroxine dose was adjusted as per the primary team. Her TSH on this admission was appropriate.
--- NOTE | 2019-04-23 14:22 | NUR ---
Recommend upgrade to thin liquids, continue level 2 solids. Compensatory strategies: upright position, small sips, chin tuck. Addendum: 04/23/19 at [address] [facility] SP Amended: Links added.
--- NOTE | 2019-04-23 14:46 | IPNPDOC ---
Subjective Date Seen The patient was seen on 04/23/19. Subjective Chief Complaint/HPI Patient seen and examined at the bedside. No acute overnight events noted. Objective Physical Examination General Exam: Positive: Alert, Cooperative, No Acute Distress, Other (severely Cachectic appearing) ENT Exam: Positive: Atraumatic, Other ENT (Bitemporal wasting) Chest Exam: Positive: Diminished; Negative: Rales, Rhonchi Heart Exam: Positive: Rate Normal, Normal S1, Normal S2 Abdomen Exam: Positive: Soft; Negative: Tenderness Extremity Exam: Negative: Tenderness, Swelling Assessment /Plan Plan/VTE VTE Prophylaxis Ordered?: Yes Plan Acute on Chronic Hypercarbic Respiratory Failure, COPD Exacerbation CXR with no acute infiltrate noted Respiratory status back to baseline Pulmonary input appreciated IV Steroids transitioned to PO, s/p Zithro, and serial nebulizer therapy as ordered PT on board for functional optimization ESRD on HD Nephro consulted for management of dialysis Hypertension Continue losartan, Norvasc Tobacco Abuse Counseled at length about cessation Hypothyroidism Cont Levothyroxine Severe Protein Calorie Malnourishment BMI noted to be 14.5 DVT Prophylaxis Heparin SC Code Status: DNR/DNI Poor Jail Prognosis, discussed at length with the patient. Dispo--CM/SW on board for further delineation, as there is concern about the patient's families' ability to take care of Mrs. Blackmon. Dispo as per PFS VS, I&O, 24H, Dariusbonkimmy Vital Signs/I&O Vital Signs Date Time Temp Pulse Resp B/P (MAP) Pulse Ox O2 Delivery O2 Flow Rate FiO2 04/23/19 10:02 2.0 04/23/19 10:00 97.6 90 20 153/87 (109) 96 04/17/19 14:30 Nasal Cannula 04/17/19 10:13 45 I&O- Last 24 Hours up to 6 AM 04/23/19 06:00 Intake Total 2240 ml Output Total 100 ml Balance 2140 ml Laboratory Data 24H LABS Laboratory Tests 2 04/23/19 06:04: Nucleated Red Blood Cells % (auto) 0.0, Anion Gap 10, Glomerular Filtration Rate 9.2L, Blood Urea Nitrogen 75H, Creatinine 4.94H, Sodium Level 135L, Potassium Level 4.4, Chloride Level 99, Carbon Dioxide Level 26, Calcium Level 7.9L, Magnesium Level 2.2 CBC/BMP Laboratory Tests 04/23/19 06:04 Red Blood Count 4.04, Mean Corpuscular Volume 92.8, Mean Corpuscular Hemoglobin 28.5, Mean Corpuscular Hemoglobin Concent 30.7 L, Red Cell Distribution Width 19.0 H, Calcium Level 7.9 L Microbiology Microbiology 04/17/19 Blood Culture - Final, Complete NO GROWTH AFTER 5 DAYS 04/17/19 Blood Culture - Final, Complete NO GROWTH AFTER 5 DAYS KARLIE ENRIQUEZ MD Apr 23, 2019 14:46
[2019-04-23] MEDS: ESCITALOPRAM OXALATE 10 MG TAB (LEXAPRO) PO SCH (20:59)
[2019-04-23 22:00] VITALS: BP 115/71
[2019-04-23] MEDS: ACETAMINOPHEN 325 MG TAB PO PRN (23:33)
[2019-04-24] MEDS: IPRATROPIUM 0.5MG/ALBUTEROL 2.5MG INH SOL UD 3ML (DUONEB)(J7620) NEB SCH ×2 (00:48→07:34)
[2019-04-24 02:00] VITALS: BP 146/73
[2019-04-24] MEDS: SLF 3 ML SYR IV SCH (05:45)
[2019-04-24] MEDS: HEPARIN SOD (PORCINE) 5000 UNITS/ML VIAL SC SCH (05:45)
[2019-04-24 06:00] VITALS: BP 147/75
[2019-04-24] MEDS ORDERED: LEVOTHYROXINE 137MCG TABLET (0.137MG) PO SCH (06:00)
[2019-04-24 06:11] LABS: HEMATOCRIT 32.4 % (36.0-47.0); HEMOGLOBIN 10.1 g/dl (12.0-15.5); MEAN CORPUSCULAR HEMOGLOBIN 29.2 pg (27.0-33.0); MEAN CORPUSCULAR HGB CONC 31.2 g/dl (32.0-36.5); MEAN CORPUSCULAR VOLUME 93.6 fl (80.0-96.0); PLATELET COUNT, AUTOMATED 143 10^3/uL (150-450); RED BLOOD COUNT 3.46 10^6/uL (4.00-5.40)
[2019-04-24 06:34] LABS: CALCIUM LEVEL 8.1 MG/DL (8.8-10.2); CREATININE FOR GFR 3.05 MG/DL (0.55-1.30); GLOMERULAR FILTRATION RATE 16.1 (>39); POTASSIUM SERUM 3.9 MEQ/L (3.5-5.1)
[2019-04-24] MEDS: SYMBICORT 160/4.5MCG INHALER 6GM INH SCH (07:34)
[2019-04-24] MEDS: OMEPRAZOLE 20 MG CAP PO SCH (09:00)
[2019-04-24] MEDS ORDERED: predniSONE 20 MG TAB PO SCH (09:00)
[2019-04-24 09:01] VITALS: BP 147/75
[2019-04-24] MEDS: amLODIPine 10 MG TAB PO SCH (09:01)
[2019-04-24] MEDS: LOSARTAN 50 MG TAB PO SCH (09:01)
[2019-04-24 10:00] VITALS: BP 145/80
--- NOTE | 2019-04-24 12:59 | DS.PDOC ---
Discharge Summary General Date of Admission April 17, 2019 at 12:27 Date of Discharge 04/24/19 Specialist/Consultants Involve Dr. Fernández of Pulmonary Discharge Summary PROCEDURES PERFORMED DURING STAY: None. ADMITTING/DISCHARGE DIAGNOSES: Acute on chronic Hypercarbic respiratory failure, COPD Exacerbation ESRD on HD Severe cachexia Continued tobacco use COMPLICATIONS/CHIEF COMPLAINT: Copd Esrd. HISTORY OF PRESENT ILLNESS: . 68-year-old female with past medical history of COPD on 2 L at baseline, continued tobacco abuse, end-stage renal disease on hemodialysis, congestive heart failure, hypothyroidism, and hypertension presents to the ER with a chief complaint of worsening shortness of breath and cough. The patient's history was limited due to her presentation. In the ER, the patient was noted to have a pH of 7.2 with a PCO2 of 69. The patient adamantly refused BiPAP therapy according to documentation, and was seen by the fabric worker leader as well. The patient was admitted under the hospitalist service for further management. During hospitalization, the patient's respiratory status improved with supportive treatment including steroids, inhaler therapy, and serial nebulizers. The patient's blood gas improved with the same. Nephrology was consulted and dialyzed the patient as per her schedule. At this time, the patient's respiratory status is back to its baseline. Extensive discussions were held on multiple occasions about the patient's need to abstain from tobacco use. The patient verbalized understanding of the same. The patient has been counseled to follow-up with her primary care physician within 7 days. She is to follow-up with dialysis as scheduled. Lastly, she is to return to the ER for any acute emergency. DISCHARGE MEDICATIONS: Please see below. ALLERGIES: Please see below. PHYSICAL EXAMINATION ON DISCHARGE: VITAL SIGNS: Please see below. General Exam: Positive: Alert, Cooperative, No Acute Distress, Other (severely Cachectic appearing) ENT Exam: Positive: Atraumatic, Other ENT (Bitemporal wasting) Chest Exam: Positive: Diminished; Negative: Rales, Rhonchi Heart Exam: Positive: Rate Normal, Normal S1, Normal S2 Abdomen Exam: Positive: Soft; Negative: Tenderness Extremity Exam: Negative: Tenderness, Swelling LABORATORY DATA: Please see below. IMAGING: Portable chest x-ray: Sitting AP view. History: Dyspnea and cough. Comparison study: February 28, 2019. Findings: The lungs are quite hyperinflated but remain clear. Heart is mildly enlarged unchanged. The thoracic aorta is tortuous. EKG electrodes are seen. The patient is extremely thin as before. There is an old healed proximal humerus fracture on the right. Impression: Evidence of COPD. No acute infiltrate. PROGNOSIS: Poor long-term prognosis ACTIVITY: As tolerated. DIET: Renal diet DISCHARGE PLAN: DISPOSITION: . Home with services DISCHARGE INSTRUCTIONS: Follow-up with PCP within 7 days. Follow-up with nephrology as per dialysis schedule. Stop smoking! Return to the ER for any acute emergencies. DISCHARGE CONDITION: Stable. TIME SPENT ON DISCHARGE: Greater than 30 minutes. Vital Signs/I&Os Vital Signs Date Time Temp Pulse Resp B/P (MAP) Pulse Ox O2 Delivery O2 Flow Rate FiO2 04/24/19 10:00 98.3 79 20 145/80 (101) 96 2.0 I&O- Last 24 Hours up to 6 AM 04/24/19 06:00 Intake Total 1080 ml Output Total 1000 ml Balance 80 ml Laboratory Data Labs 24H Laboratory Tests 2 04/24/19 05:56: Nucleated Red Blood Cells % (auto) 0.0, Anion Gap 9, Glomerular Filtration Rate 16.1L, Blood Urea Nitrogen 41H, Creatinine 3.05H, Sodium Level 139, Potassium Level 3.9, Chloride Level 103, Carbon Dioxide Level 27, Calcium Level 8.1L, Magnesium Level 2.0 CBC/BMP Laboratory Tests 04/24/19 05:56 Red Blood Count 3.46 L, Mean Corpuscular Volume 93.6, Mean Corpuscular Hemoglobin 29.2, Mean Corpuscular Hemoglobin Concent 31.2 L, Red Cell Distribution Width 19.0 H, Calcium Level 8.1 L Microbiology Microbiology 04/17/19 Blood Culture - Final, Complete NO GROWTH AFTER 5 DAYS 04/17/19 Blood Culture - Final, Complete NO GROWTH AFTER 5 DAYS Discharge Medications Scheduled Amlodipine Besylate (Amlodipine Besylate) 10 Mg Tab, 10 MG PO DAILY, (Reported) Aspirin (Aspirin EC) 81 Mg Tabec, 81 MG PO 4XWK, (Reported) TAKES ON NON DIALYSIS DAYS, TUES, THURS, SAT, SUN Budesonide/Formoterol (Symbicort 160-4.5 Mcg Inhaler) 60 Puff/Inhaler Aers, 2 PUFF INH BID, (Reported) Escitalopram Oxalate (Lexapro) 20 Mg Tab, 20 MG PO QHS, (Reported) Folic Acid/Vit B Complex and C (Arielle-Roby Tablet) 1 Tab Tab, 1 TAB PO DAILY, (Reported) Levothyroxine Sodium (Synthroid) 137 Mcg Tab, 137 MCG PO DAILY, (Reported) Lidocaine/Prilocaine (Lidocaine-Prilocaine Cream) 2.5%/2.5% Cream..g., 1 APLCT TOP HD, (Reported) Losartan Potassium (Losartan Potassium) 100 Mg Tab, 100 MG PO DAILY, (Reported) Megestrol Acetate (Megestrol Acetate) 20 Mg Tablet, 20 MG PO QID, (Reported) Nut.tx.gluc.intoler,Lac-Fr,Soy (Glucerna) 237 Ml Liquid, 1 LIQ PO BID, (Reported) Omeprazole (Omeprazole) 20 Mg Capsule.dr, 20 MG PO DAILY, (Reported) Pancreatic Enzymes (Creon Dr 24,000 Units Capsule) 1 Ea Capcr, 1 CAP PO TID, (Reported) Sucroferric Oxyhydroxide (Velphoro) 500 Mg Chw, 500 MG PO WM, (Reported) Umeclidinium Evans (Incruse Ellipta) 62.5 Mcg/Inh Inh, 1 PUFF INH DAILY, (Reported) Scheduled PRN Albuterol Sulf (Albuterol Sulfate) 2.5 Mg/3 Ml Nebu, 2.5 MG INH Q4H PRN for SHORTNESS OF BREATH, (Reported) Albuterol Sulfate (Proair Hfa) 108 Mcg/Act Aer, 2 PUFFS INH Q4H PRN for SHORTNESS OF BREATH, (Reported) Diclofenac Sodium (Diclofenac Sodium) 1% 100GM Gel..gram., 1 APLCT TOP TID PRN for NECK PAIN, (Reported) Ipratropium Evans (Atrovent Hfa) 17 Mcg/Act Aer, 2 PUFFS INH QID PRN for SHORTNESS OF BREATH, (Reported) Allergies Coded Allergies: lisinopril (Verified Allergy, Severe, ANGIOEDEMA, 02/19/19) codeine (Verified Adverse Reaction, Mild, GI UPSET, 02/19/19) KARLIE ENRIQUEZ MD Apr 24, 2019 12:59
--- NOTE | 2019-04-24 14:10 | NUR ---
Discharge recommendations: level 2 mechanically altered (NDD) solids, thin liquids w/ compensatory postural strategies (upright, chin tuck) and small sips. Pt educated on s/sx aspiration & to contact PCP for re-evaluation by speech pathologist if these do occur. Addendum: 04/24/[address] [facility] SP Amended: Links added.
== END 2019-04-24 14:00 | disposition home health service (06) | DRG 189 ==
LOC: EDBD 08:58 → M ED 08:58 → M ED INP 12:27 → M PCU 15:52 → M MS5PR 04-21 16:52
PROVIDERS: ADMIT Student in an Organized Health Care Education/Training Program; ATTEND Internal Medicine
PROC: 5A1D70Z Performance of Urinary Filtration, Intermittent, Less than 6 Hours Per Day (ICD-10-PCS; principal; 2019-04-18)
DX: J96.01 Acute respiratory failure with hypoxia (principal); I50.33 Acute on chronic diastolic (congestive) heart failure; N18.6 End stage renal disease; E43 Unspecified severe protein-calorie malnutrition; J44.1 Chronic obstructive pulmonary disease with (acute) exacerbation; I13.2 Hypertensive heart and chronic kidney disease with heart failure and with stage 5 chronic kidney disease, or end stage renal disease; Q61.2 Polycystic kidney, adult type; Q44.6 Cystic disease of liver; Z68.1 Body mass index [BMI] 19.9 or less, adult; J96.02 Acute respiratory failure with hypercapnia; F17.200 Nicotine dependence, unspecified, uncomplicated; E03.9 Hypothyroidism, unspecified; Z79.899 Other long term (current) drug therapy; Z79.82 Long term (current) use of aspirin; Z88.5 Allergy status to narcotic agent; Z88.8 Allergy status to other drugs, medicaments and biological substances; Z99.81 Dependence on supplemental oxygen; Z66 Do not resuscitate

== ENCOUNTER 2019-06-17 17:26 | Inpatient (IN) | payer MEDICARE, MEDICAID ==
[~2019-06-17 17:26] MED LIST changes: +GLUCLIQ37 PO; +LIDO2.5C15 TOP; +OMEP20CA4 PO
[2019-06-17] MEDS ORDERED: NS 1,000 ML IV SCH (17:41)
[2019-06-17] MEDS: IPRATROPIUM 0.5MG/ALBUTEROL 2.5MG INH SOL UD 3ML (DUONEB)(J7620) NEB PRN ×2 (18:08→23:30)
[2019-06-17 18:12] LABS: ABG HCO3 20.7 MEQ/L (22.0-26.0); ABG O2 SATURATION 98.4 % (95.0-99.0); ABG PARTIAL PRESSURE CO2 36.8 mmHg (35.0-45.0); ABG PARTIAL PRESSURE O2 112.9 mmHg (75.0-100.0); ABG STANDARD HCO3 21.1 MEQ/L (22.0-26.0); ABG TOTAL CO2 21.9 MEQ/L (23.0-31.0); ABG pH (ARTERIAL) 7.369 UNITS (7.350-7.450)
[2019-06-17 18:15] LABS: BASO % 0.2 % (0.0-1.0); EOS # 0.1 10^3/uL (0.0-0.50); EOS % 1.3 % (0.0-3.0); HEMATOCRIT 34.3 % (36.0-47.0); HEMOGLOBIN 10.5 g/dl (12.0-15.5); LYMPH # 0.6 10^3/uL (1.5-4.5); LYMPH % 5.7 % (24.0-44.0); MEAN CORPUSCULAR HEMOGLOBIN 29.4 pg (27.0-33.0); MEAN CORPUSCULAR HGB CONC 30.6 g/dl (32.0-36.5); MEAN CORPUSCULAR VOLUME 96.1 fl (80.0-96.0); MONO # 0.8 10^3/uL (0.0-0.8); MONO % 7.9 % (0.0-5.0); NEUTROPHILS # 8.4 10^3/uL (1.8-7.7); NEUTROPHILS % 84.5 % (36.0-66.0); PLATELET COUNT, AUTOMATED 172 10^3/uL (150-450); RED BLOOD COUNT 3.57 10^6/uL (4.00-5.40)
[2019-06-17 18:42] LABS: ALBUMIN 2.9 GM/DL (3.2-5.2); BILIRUBIN,DIRECT 0.2 MG/DL (0.0-0.2); BILIRUBIN,TOTAL 0.5 MG/DL (0.2-1.0); CALCIUM LEVEL 7.8 MG/DL (8.8-10.2); CK-MB VALUE MASS 4.9 NG/ML (<3.6); CREATININE FOR GFR 5.53 MG/DL (0.55-1.30); GLOMERULAR FILTRATION RATE 8.1 (>39); MB/CK RELATIVE INDEX 12.25 (< OR =4); TOTAL PROTEIN 5.4 GM/DL (6.4-8.2); TROPONIN I 0.04 NG/ML (< 0.10)
[2019-06-17] MEDS ORDERED: LABETALOL HCL 100 MG/20 ML VIAL IV STA (18:59)
[2019-06-17] MEDS ORDERED: ATIV1TAB7 PO (19:21)
--- NOTE | 2019-06-17 21:34 | ECGEPIP ---
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
[2019-06-17] MEDS: MOXIFLOXACIN HCL 400 MG in APPROPRIATE DILUENT 1 EA IV SCH (23:59)
[2019-06-18] MEDS ORDERED: methylPREDNISolone INJ 125 MG/2 ML VIAL (J2930) IV SCH
--- NOTE | 2019-06-18 00:08 | HPEPDOC ---
General Date of Admission Jun 17, 2019 at 22:44 Date of Service: Jun 17, 2019 Chief Complaint The patient is a 68-year-old female admitted with a reason for visit of Acute An Chronic Resp Failure W/Hypoxia. Source: Patient History of Present Illness This is a 68 yo female with pmhx of COPD on 2 L home O2, end-stage renal disease on HD MWF, HFpEF, Hypothyroidism, HTN presented to the ER with worsening SOB. Patient said she has been feeling sob for the past week. She has been complaint with HD and last HD was Tuesday. Patient she has increased cough, with sob but denied fever, chills, chest pain, headache or blurry vision ROS - all 14 point review of system is negative except for whats listed in HPI Allergies - see below Pmhx - see above Surgical hx - avf on left arm social hx - current smoker- smokes 5 cig per day for >40yrs Physical exam Gen: NAD, cachetic appearing, very dry skin, generalized weakness HEENT: normocephalic, atraumatic, no discharge from ears or nose, no oropharyngeal erythema or exudate, neck is supple, no lymphadenopathy, CVS: RRR, normal S1n S2, no murmur, rubs, or gallops, no edema, no jvd Resp: scattered b/l rhonchi, prodcutive cough, no wheezes or crackles Abd : soft, nontender, distended, normal bowel sounds, no rebound tenderness or guarding MSK: no swelling, full range of motion, strength 5/5 Neuro: AOAx2, no confusion, no focal deficit Psych: normal mood and affect, Assessment and plan copd exacerbation -c/w methypred - 60mg q8h -duoneb q4h -c/w symbicort -hold atrovent -c/w tessalon perles prn -start moxiflaxicin -f/u resp panel and sputum gs and cx -GI ppx -f/u procal ESRD on HD MWF nephro consult CHF with preserved ef//HTN//elevated troponin hold ivf monitor volume status c/w losartan and amlodipine f/u repeat ckmb and troponin f/u probnp ekg - negative for acs - f/u repeat f/u echo - last one showed preserved ef but that was in 2017 hypothyrodism c/w levothyroxine -f/u tft dvt ppx DNR/DNI Home Medications Scheduled Amlodipine Besylate (Amlodipine Besylate) 10 Mg Tab, 10 MG PO DAILY, (Reported) Aspirin (Aspirin EC) 81 Mg Tabec, 81 MG PO 4XWK, (Reported) TAKES ON NON DIALYSIS DAYS, TUES, TH, SAT, SUN Budesonide/Formoterol (Symbicort 160-4.5 Mcg Inhaler) 60 Puff/Inhaler Aers, 2 PUFF INH BID, (Reported) Escitalopram Oxalate (Lexapro) 20 Mg Tab, 20 MG PO QHS, (Reported) Folic Acid/Vit B Complex and C (Arielle-Roby Tablet) 1 Tab Tab, 1 TAB PO DAILY, (Reported) Levothyroxine Sodium (Synthroid) 137 Mcg Tab, 137 MCG PO DAILY, (Reported) Lidocaine/Prilocaine (Lidocaine-Prilocaine Cream) 2.5%/2.5% Cream..g., 1 APLCT TOP ASDIRECTED, (Reported) APPLIES A SMALL AMOUNT TO ACCESS SITE ON DIALYSIS DAYS Lorazepam (Ativan) 1 Mg Tablet, 1 MG PO TID, (Reported) Losartan Potassium (Losartan Potassium) 100 Mg Tab, 100 MG PO DAILY, (Reported) Omeprazole (Omeprazole) 20 Mg Capsule.dr, 20 MG PO DAILY, (Reported) Pancreatic Enzymes (Creon Dr 24,000 Units Capsule) 1 Ea Capcr, 1 CAP PO TID, (Reported) Sucroferric Oxyhydroxide (Velphoro) 500 Mg Chw, 500 MG PO WM, (Reported) Scheduled PRN Albuterol Sulf (Albuterol Sulfate) 2.5 Mg/3 Ml Nebu, 2.5 MG INH Q4H PRN for SHORTNESS OF BREATH, (Reported) Albuterol Sulfate (Proair Hfa) 108 Mcg/Act Aer, 2 PUFFS INH Q4H PRN for SHORTNESS OF BREATH, (Reported) Diclofenac Sodium (Diclofenac Sodium) 1% 100GM Gel..gram., 1 APLCT TOP TID PRN for NECK PAIN, (Reported) Ipratropium [place] (Atrovent Hfa) 17 Mcg/Act Aer, 2 PUFFS INH QID PRN for SHORTNESS OF BREATH, (Reported) Allergies Coded Allergies: lisinopril (Verified Allergy, Severe, ANGIOEDEMA, 4/1/19) codeine (Verified Adverse Reaction, Mild, GI UPSET, 02/19/19) A-FIB/CHADSVASC A-FIB History Current/History of A-Fib/PAF?: No Current PO Anticoag Therapy: No Age/Risk Factor Scoring CHADSVASC: CHADSVASC Response (Comments) Value Age Risk Factor Age 65-74 years old 1 Gender Risk Factor Female 1 Hx of CHF Yes 1 Hx of HTN Yes 1 Hx of Stroke/TIA/or VTE No 0 Hx of Diabetes No 0 Hx of Vascular Disease No 0 Total 4 Treatment Treatment ordered: NONE Reason Anticoagulant not given: Not indicated/[id number] Vital Signs Vital Signs Date Time Temp Pulse Resp B/P (MAP) Pulse Ox O2 Delivery O2 Flow Rate FiO2 06/17/19 23:45 72 158/88 (111) 96 06/17/19 21:30 20 Nasal Cannula 3.0 06/17/19 17:45 99.9 Laboratory Data Labs 24H Laboratory Tests 2 06/17/19 17:51: Immature Granulocyte % (Auto) 0.4, White Blood Count 10.0, Red Blood Count 3.57L, Hemoglobin 10.5L, Hematocrit 34.3L, Mean Corpuscular Volume 96.1H, Mean Corpuscular Hemoglobin 29.4, Mean Corpuscular Hemoglobin Concent 30.6L, Red Cell Distribution Width 19.8H, Platelet Count 172, Neutrophils (%) (Auto) 84.5H, Lymphocytes (%) (Auto) 5.7L, Monocytes (%) (Auto) 7.9H, Eosinophils (%) (Auto) 1.3, Basophils (%) (Auto) 0.2, Neutrophils # (Auto) 8.4H, Lymphocytes # (Auto) 0.6L, Monocytes # (Auto) 0.8, Eosinophils # (Auto) 0.1, Basophils # (Auto) 0.0, Nucleated Red Blood Cells % (auto) 0.0, Blood Gas Bicarbonate Standard 21.1L, Arterial Blood pH 7.369, Arterial Blood Partial Pressure CO2 36.8, Arterial Blood Partial Pressure O2 112.9H, Arterial Blood Total CO2 21.9L, Arterial Blood HCO3 20.7L, Arterial Blood Base Excess -4.0L, Arterial Blood Oxygen Saturation 98.4, Anion Gap 10, Glomerular Filtration Rate 8.1L, Calcium Level 7.8L, Aspartate Amino Transf (AST/SGOT) 17, Alanine Aminotransferase (ALT/SGPT) 14, Alkaline Phosphatase 109, Total Bilirubin 0.5, Direct Bilirubin 0.2, Total Creatine Kinase 40, Creatine Kinase MB 4.9H, Creatine Kinase MB Relative Index 12.25H, Troponin I 0.04, Total Protein 5.4L, Albumin 2.9L, Albumin/Globulin Ratio 1.16 06/17/19 17:52: Ammonia 13 06/17/19 17:53: Lactic Acid Level 0.7 CBC/BMP Laboratory Tests 06/17/19 17:51 Red Blood Count 3.57 L, Mean Corpuscular Volume 96.1 H, Mean Corpuscular Hemoglobin 29.4, Mean Corpuscular Hemoglobin Concent 30.6 L, Red Cell Distribution Width 19.8 H, Neutrophils (%) (Auto) 84.5 H, Lymphocytes (%) (Auto) 5.7 L, Monocytes (%) (Auto) 7.9 H, Eosinophils (%) (Auto) 1.3, Basophils (%) (Auto) 0.2, Neutrophils # (Auto) 8.4 H, Lymphocytes # (Auto) 0.6 L, Monocytes # (Auto) 0.8, Eosinophils # (Auto) 0.1, Basophils # (Auto) 0.0 Microbiology Microbiology 06/17/19 Blood Culture, Received Pending 06/17/19 Blood Culture, Received Pending Plan / VTE VTE Prophylaxis Ordered?: Yes TEMI GOMEZ MD Jun 18, 2019 00:08
[2019-06-18 00:40] VITALS: BP 165/94
[2019-06-18] MEDS: IPRATROPIUM 0.5MG/ALBUTEROL 2.5MG INH SOL UD 3ML (DUONEB)(J7620) NEB SCH ×4 (01:57→19:53)
[2019-06-18 04:00] VITALS: BP 151/57
[2019-06-18 06:00] LABS: HEMOGLOBIN 11.1 g/dl (12.0-15.5); MEAN CORPUSCULAR HGB CONC 30.8 g/dl (32.0-36.5); MEAN CORPUSCULAR VOLUME 97.3 fl (80.0-96.0); PLATELET COUNT, AUTOMATED 146 10^3/uL (150-450); WHITE BLOOD COUNT 3.5 10^3/uL (4.0-10.0)
[2019-06-18] MEDS: HEPARIN SOD (PORCINE) 5000 UNITS/ML VIAL SC SCH ×2 (06:00→19:00)
[2019-06-18] MEDS: LEVOTHYROXINE 137MCG TABLET (0.137MG) PO SCH (06:20)
[2019-06-18] MEDS: methylPREDNISolone INJ 125 MG/2 ML VIAL (J2930) IV SCH ×3 (06:20→23:29)
[2019-06-18 06:44] LABS: CALCIUM LEVEL 7.6 MG/DL (8.8-10.2); CREATININE FOR GFR 5.58 MG/DL (0.55-1.30); MAGNESIUM LEVEL 2.3 MG/DL (1.8-2.4); POTASSIUM SERUM 5.7 MEQ/L (3.5-5.1); THYROID STIMULATING HORMONE 0.062 uIU/ML (0.358-3.740)
--- NOTE | 2019-06-18 07:54 | REP ---
Portable chest, six 5th 48 p.m., single AP view with the patient semi upright: Comparison is 2018. The lung louis are clear. The cardiac size is normal. The sharri, mediastinum, and skeletal structures are unremarkable. Impression: Negative portable chest. There is no interval change. Electronically Signed by Cristopher Fry MD 06/18/2019 07:02 A
[2019-06-18 08:00] VITALS: BP 152/72
[2019-06-18] MEDS: SUCROFERRIC OXYHYDROXIDE 500MG CHEW TAB (VELPHORO) PO SCH ×3 (08:00→19:00)
[2019-06-18] MEDS ORDERED: SLF 3 ML SYR IV PRN (08:30)
[2019-06-18] MEDS: SYMBICORT 160/4.5MCG INHALER 6GM INH SCH ×2 (08:59→19:53)
[2019-06-18] MEDS ORDERED: PANTOPRAZOLE 40MG TAB (PROTONIX) PO SCH (09:00)
[2019-06-18] MEDS ORDERED: LIDOCAINE 1% SDV 5 ML VIAL SQ ONE ×2 (11:15→12:00)
[2019-06-18] MEDS: amLODIPine 10 MG TAB PO SCH (14:24)
[2019-06-18] MEDS: OMEPRAZOLE 20 MG CAP PO SCH (14:25)
[2019-06-18] MEDS: CREON-24 CAPSULE PO SCH ×3 (14:25→20:31)
[2019-06-18] MEDS: LOSARTAN 50 MG TAB PO SCH (14:26)
[2019-06-18] MEDS: DOCUSATE SODIUM 100 MG CAP PO SCH ×2 (14:26→20:31)
[2019-06-18] MEDS: NICOTINE 14 MG/24 HR TRANSDERMAL TD SCH (14:27)
[2019-06-18] MEDS: SLF 3 ML SYR IV SCH ×2 (14:45→20:31)
--- NOTE | 2019-06-18 15:56 | CR ---
DATE OF CONSULTATION: 06/18/2019 CONSULTATION REPORT FOR: Dimple Marinelli MD REASON FOR CONSULTATION: Is to assist in the management of shortness of breath in this lady with end-stage renal disease. HISTORY OF PRESENT ILLNESS: Mrs. Blackmon is a 68-year-old female with advanced and end-stage chronic obstructive pulmonary disease (COPD), end-stage renal disease secondary to polycystic kidneys, history of hypothyroidism and chronic failure to thrive. She was admitted yesterday with shortness of breath. The patient reports that she also had diarrhea and weakness. She did miss her dialysis treatment on Tuesday. A nephrology consultation was requested as the patient needs dialysis today and also has hyperkalemia. PAST MEDICAL AND SURGICAL HISTORY: Significant for: 1. Longstanding history of polycystic kidney disease with end-stage renal disease. 2. History of hypertension. 3. End-stage chronic obstructive pulmonary disease (COPD). 4. History of gastrointestinal (GI) bleed in the past. 5. History of congestive heart failure. 6. History of failure to thrive with generalized debility and weakness. 7. History of hypothyroidism. PAST SURGICAL HISTORY: Significant for arteriovenous fistula (AVF) creation in her left arm. ALLERGIES: The patient has allergy to LISINOPRIL and CODEINE. MEDICATIONS: Her home medications include: - amlodipine 10 mg daily - aspirin 81 mg daily - Symbicort inhaler 160/4.5 mcg two puffs twice a day - Lexapro 20 mg daily - multivitamin one tablet daily - levothyroxine 137 mcg daily - lorazepam 1 mg three times a day as needed for anxiety - losartan 100 mg daily - omeprazole 20 mg daily - pancreatic enzyme one capsule three times a day - albuterol inhaler two puffs every six hours as needed for dyspnea - Tylenol PERSONAL AND SOCIAL HISTORY: The patient has a long history of smoking and she still smokes. She has no history of alcohol or drug use. FAMILY HISTORY: Significant for end-stage renal disease secondary to polycystic kidney disease. REVIEW OF SYSTEMS: She is generally very frail and emaciated. She denies any fever or chills. She reports some vomiting and diarrhea. She did miss her dialysis treatment on Tuesday. Ears, nose and throat are unremarkable. She denies any headache. Cardiovascular system is significant for chronic shortness of breath and hypertension with congestive heart failure. Respiratory system is significant for end-stage chronic obstructive pulmonary disease (COPD) with recurrent hospitalizations. She denies any hemoptysis or pleuritic-type of chest pain. Gastrointestinal (GI) system is significant for diarrhea on Tuesday. Today, she feels well and denies any abdominal pain, vomiting, or diarrhea. Genitourinary () system is significant for end-stage renal disease secondary to polycystic kidneys. Musculoskeletal system is significant for generalized weakness and debility. She is chronically malnourished. Endocrine system is significant for hypothyroidism. She has no diabetes. Psychosocial system is significant for depression. Neurological system is negative for seizures. PHYSICAL EXAMINATION: Temperature 97.2 degrees Fahrenheit, heart rate 70 per minute and respiratory rate 18 per minute. Blood pressure 152/72 mmHg and oxygen saturation 100% on two liters of oxygen. Her head is atraumatic. Neck is supple and jugular venous distention (JVD) is moderately elevated. Trachea is centered. She has no oral thrush or ulcers. Heart sounds are regular. Lungs with diminished breath sounds. Abdomen is soft with large polycystic kidneys and mild tenderness. Bowel sounds are present. Extremities have no cyanosis or clubbing. Neurologically, she is at her baseline mentation without a focal deficit. LABORATORY DATA: Today's laboratories show WBC count 3.5, hemoglobin 11.1 and hematocrit 36. Platelets 146. Sodium 136, potassium 5.7, CO2 21, BUN 94 and creatinine 5.58. A pro BNP is 168,518. PROBLEMS: 1. End-stage renal disease. The patient missed her dialysis on Tuesday. She is due for dialysis today and we will plan to dialyze her early afternoon. 2. Hyperkalemia. This is related to end-stage renal disease and missed dialysis treatment. She will be dialyzed with 1.0 mEq potassium bath which will correct her hyperkalemia. 3. Shortness of breath. She is partly volume overloaded and partly she has chronic obstructive pulmonary disease (COPD). We will try to remove about 1.5 liters of fluid which is the most she can tolerate. She should continue with nebulizers and inhalers. 4. Hypertension. Her blood pressure is slightly higher than the goal. However, it is likely to improve with dialysis. I would suggest to continue with her chronic antihypertensive medications. Thank you for involving me in the care of Mrs. Blackmon. I will follow her along with you.
[2019-06-18 16:00] VITALS: BP 154/78
[2019-06-18 19:00] VITALS: BP 146/74
--- NOTE | 2019-06-18 20:08 | IPNPDOC ---
Subjective Date Seen The patient was seen on 06/18/19. Subjective Chief Complaint/HPI Follow-up COPD exacerbation Events since last encounter Patient seen and examined at bedside. Patient is breathing much improved from yesterday. Per nursing, patient refusing steroids, oral medicines for unclear reasons. Patient denies fevers, chills, chest pain, worsened breathing, nausea, vomiting, diarrhea, leg pain or swelling. Son at bedside Objective Physical Examination General Exam: Positive: Alert, Cooperative, No Acute Distress, Other (extremely cachectic female sitting up in bed. Son at bedside) Chest Exam: Positive: Rhonchi, Wheezing Heart Exam: Positive: Rate Normal, Normal S1, Normal S2 Abdomen Exam: Positive: Normal bowel sounds, Soft; Negative: Tenderness Extremity Exam: Positive: Normal pulses; Negative: Edema Skin Exam: Negative: Rash Neuro Exam: Positive: Normal Speech Psych Exam: Positive: Mental status NL, Mood NL Assessment /Plan Assessment 5-year-old female presented with COPD exacerbation Plan/VTE VTE Prophylaxis Ordered?: Yes Plan #copd exacerbation with likely PNA -c/w methypred - 60mg q8h -duoneb q4h -c/w symbicort -hold atrovent -c/w tessalon perles prn -cont. moxiflaxicin -viral PCR neg -blood cultures NGTD -sputum cultures pending -GI ppx -procal 2.56 consistent with bacterial infection #ESRD on HD MWF appreciate nephro consult #CHF with preserved ef//HTN//elevated troponin hold ivf monitor volume status c/w losartan and amlodipine probnp: 168K ekg - negative for acs f/u echo - last one showed preserved ef but that was in 2017, echo pending hypothyrodism c/w levothyroxine -f/u tft: TSH 0.062, free t4 pending DNR/DNI Disposition pending improvement in clinical status VS, I&O, 24H, Dariusbone Vital Signs/I&O Vital Signs Date Time Temp Pulse Resp B/P (MAP) Pulse Ox O2 Delivery O2 Flow Rate FiO2 06/18/19 19:00 98.3 76 17 146/74 (98) 99 2.0 06/17/19 21:30 Nasal Cannula I&O- Last 24 Hours up to 6 AM 06/18/19 05:59 Intake Total 500 ml Balance 500 ml Laboratory Data 24H LABS Laboratory Tests 2 06/18/19 04:20: Urine Color YELLOW, Urine Appearance HAZY, Urine pH 8.0, Urine Specific [place] 1.006, Urine Protein 2+H, Urine Glucose (UA) NEGATIVE, Urine Ketones NEGATIVE, Urine Blood 1+H, Urine Nitrite NEGATIVE, Urine Bilirubin NEGATIVE, Urine Urobilinogen 0.2, Urine Leukocyte Esterase 2+H, Urine WBC (Auto) 7H, Urine RBC (Auto) 5H, Urine Hyaline Casts (Auto) 0, Urine Bacteria (Auto) NEGATIVE, Urine Squamous Epithelial Cells 3, Urine Transitional Epithelial Cells 1, Urine Sperm (Auto) 06/18/19 05:35: Nucleated Red Blood Cells % (auto) 0.0, Anion Gap 12, Glomerular Filtration Rate 8.0L, Blood Urea Nitrogen 94H, Creatinine 5.58H, Sodium Level 136, Potassium Level 5.7H, Chloride Level 103, Carbon Dioxide Level 21, Calcium Level 7.6L, Ma gnesium Level 2.3, QF-Irl-[id number]-Type Natriuretic Peptide [id number], Procalcitonin 2.56, Thyroid Stimulating Hormone (TSH) 0.062L 06/18/19 06:28: CBC/BMP Laboratory Tests 06/18/19 05:35 Red Blood Count 3.70 L, Mean Corpuscular Volume 97.3 H, Mean Corpuscular Hemoglobin 30.0, Mean Corpuscular Hemoglobin Concent 30.8 L, Red Cell Distribution Width 19.7 H, Calcium Level 7.6 L Microbiology Microbiology 06/17/19 Blood Culture - Preliminary, Resulted No growth after 24 hours . All specim... 06/17/19 Blood Culture - Preliminary, Resulted No growth after 24 hours . All specim... 06/18/19 Respiratory Virus Panel (PCR) ([facility]) - Final, Complete 06/18/19 Urine Culture, Received Pending CODY LE MD Jun 18, 2019 20:08
[2019-06-18] MEDS: ESCITALOPRAM OXALATE 10 MG TAB (LEXAPRO) PO SCH (20:24)
--- NOTE | 2019-06-18 20:47 | ECHO ---
DATE OF PROCEDURE: 06/18/2019 DATE OF : 1950 AGE: 68 HEIGHT: 62 inches WEIGHT: 81 pounds BODY SURFACE AREA: 1.31 meters squared INPATIENT: Progressive care unit (PCU), room 3215 REFERRING PHYSICIAN: Dimple Marinelli MD INDICATION: Abnormal EKG. MEASUREMENTS: 2D Measurements: RV: 3.8 cm LV: 4.3 cm Septum: 1.2 cm Posterior wall: 1.2 cm Aortic root: 3.6 cm LA: 4.2 cm LVEF: 50-55% DOPPLER MEASUREMENTS: AV: 0.9 meters per second LVOT: 0.8 meters per second LVOT diameter: 2.0 cm MV-E: 70, A: 100, EA ratio: 0.7 Early mitral deceleration time: 204 milliseconds PV: 0.5 meters per second Pulmonary artery acceleration time: 106 milliseconds RVSP: 45 mmHg IVC: 1.9 cm COMMENTS: Normal sinus rhythm without intraventricular conduction disturbance. M-mode and two-dimensional echocardiography was performed with pulsed, continuous wave, color and tissue Doppler studies. Unfortunately tissue Doppler study angulation was excessive and was not useful in assessing left ventricular (LV) diastolic function or estimated mean left atrial pressure. Mild concentric left ventricular hypertrophy with mild global hypokinesis. Mildly dilated left atrium with impairment of LV diastolic function and suspected elevated mean left atrial pressure. Right heart chamber sizes upper limits of normal to slightly increased with mild right ventricular free wall hypokinesis and Doppler evidence of at least moderate pulmonary hypertension. Inferior vena cava (IVC) size upper limits of normal with slightly reduced respiratory collapse suggestive of central venous pressure upper limits of normal. Normal aortic root diameter. Mild aortic valvular sclerosis without stenosis and very mild insufficiency. Mild degenerative changes of the mitral valvular apparatus with mild insufficiency. Normal appearing tricuspid valve with moderate insufficiency. No apparent intracardiac mass. Small anterior and posterior echo-free spaces without evidence of cardiac chamber compression. Comparing the above test findings with those of October 2017, there did not appear to be as a dramatic change.
[2019-06-18] MEDS: MOXIFLOXACIN HCL 400 MG in APPROPRIATE DILUENT 1 EA IV SCH (23:29)
[2019-06-19] VITALS: BP 162/80
[2019-06-19] MEDS: IPRATROPIUM 0.5MG/ALBUTEROL 2.5MG INH SOL UD 3ML (DUONEB)(J7620) NEB SCH ×4 (02:00→19:51)
[2019-06-19 04:00] VITALS: BP 158/64
[2019-06-19 05:51] LABS: HEMOGLOBIN 10.2 g/dl (12.0-15.5); MEAN CORPUSCULAR HEMOGLOBIN 29.2 pg (27.0-33.0); MEAN CORPUSCULAR HGB CONC 30.9 g/dl (32.0-36.5); MEAN CORPUSCULAR VOLUME 94.6 fl (80.0-96.0); PLATELET COUNT, AUTOMATED 180 10^3/uL (150-450); RED BLOOD COUNT 3.49 10^6/uL (4.00-5.40); WHITE BLOOD COUNT 6.1 10^3/uL (4.0-10.0)
[2019-06-19] MEDS: HEPARIN SOD (PORCINE) 5000 UNITS/ML VIAL SC SCH ×3 (06:00→18:00)
[2019-06-19 06:20] LABS: CALCIUM LEVEL 7.4 MG/DL (8.8-10.2); CREATININE FOR GFR 3.83 MG/DL (0.55-1.30); GLOMERULAR FILTRATION RATE 12.4 (>39); POTASSIUM SERUM 4.2 MEQ/L (3.5-5.1)
[2019-06-19] MEDS: SLF 3 ML SYR IV SCH ×3 (06:31→21:26)
[2019-06-19] MEDS: LEVOTHYROXINE 137MCG TABLET (0.137MG) PO SCH (06:31)
[2019-06-19] MEDS: SYMBICORT 160/4.5MCG INHALER 6GM INH SCH ×2 (07:31→19:51)
--- NOTE | 2019-06-19 08:26 | ECGEPIP ---
[facility] Test Date: 2019-06-18 Pat Name: CHIQUITA FELIPE Department: Room: [place] [address] Gender: Female [employer]: KATIE : 1950 Requested By: TEMI GOMEZ Order Number: [id number] Reading MD: Kenneth Ulloa Measurements Intervals [place] Rate: 69 P: 48 NM: 128 QRS: -35 QRSD: 81 T: 67 QT: 466 QTc: 500 Interpretive Statements SINUS RHYTHM Left axis deviation Septal Q waves previously seen on tracing done 06-17-19 Electronically Signed on 06-19-2019 8:26:12 EDT by Kenneth Ulloa
[2019-06-19 08:42] VITALS: BP 156/78
[2019-06-19] MEDS: DOCUSATE SODIUM 100 MG CAP PO SCH ×2 (09:00→21:25)
[2019-06-19] MEDS: NICOTINE 14 MG/24 HR TRANSDERMAL TD SCH (09:00)
[2019-06-19] MEDS: LOSARTAN 50 MG TAB PO SCH (09:31)
[2019-06-19] MEDS: CREON-24 CAPSULE PO SCH ×3 (09:31→21:26)
[2019-06-19] MEDS: OMEPRAZOLE 20 MG CAP PO SCH (09:31)
[2019-06-19] MEDS: amLODIPine 10 MG TAB PO SCH (09:31)
[2019-06-19] MEDS: ASPIRIN 81 MG ENTERIC TAB PO SCH (09:31)
[2019-06-19] MEDS: SUCROFERRIC OXYHYDROXIDE 500MG CHEW TAB (VELPHORO) PO SCH ×3 (09:37→18:00)
--- NOTE | 2019-06-19 10:58 | IPNPDOC ---
Subjective Date Seen The patient was seen on 06/19/19. Subjective Chief Complaint/HPI Follow-up COPD exacerbation Events since last encounter Patient seen and examined at bedside. Patient appears to be stable from a breathing standpoint on her home 2 L O2. We'll transition to oral meds today as patient appears to be close to baseline. Per patient, she does not have an air conditioner at home, which may have contributed to her being admitted to the hospital. Patient denies fevers, chills, chest pain, worsened breathing, nausea, vomiting, diarrhea, leg pain or swelling. Objective Physical Examination General Exam: Positive: Alert, Cooperative, No Acute Distress, Other (extremely cachectic female laying in bed) Chest Exam: Positive: Clear to auscultation, Normal air movement Heart Exam: Positive: Rate Normal, Normal S1, Normal S2 Abdomen Exam: Positive: Normal bowel sounds, Soft; Negative: Tenderness Extremity Exam: Positive: Normal pulses; Negative: Edema Skin Exam: Negative: Rash Neuro Exam: Positive: Normal Speech Psych Exam: Positive: Mental status NL, Mood NL, Oriented x 3 Assessment /Plan Assessment She is 68-year-old female who presented with COPD exacerbation Plan/VTE VTE Prophylaxis Ordered?: Yes Plan #copd exacerbation with likely PNA -switch to pred 40mg daily -duoneb q4h -c/w symbicort -hold atrovent -c/w tessalon perles prn -cont. moxiflaxicin -viral PCR neg -blood cultures NGTD -sputum cultures pending -GI ppx -procal 2.56 consistent with bacterial infection #ESRD on HD MWF appreciate nephro consult #CHF with preserved ef//HTN//elevated troponin hold ivf monitor volume status c/w losartan and amlodipine probnp: 168K ekg - negative for acs f/u echo - shows preserved EF of 50-55% and findings largely consistent with prior echo from 2017 hypothyrodism c/w levothyroxine -f/u tft: TSH 0.062, free t4 pending Disposition home likely tomorrow if pt tolerated oral medications and is feeling at baseline VS, I&O, 24H, Fishbone Vital Signs/I&O Vital Signs Date Time Temp Pulse Resp B/P (MAP) Pulse Ox O2 Delivery O2 Flow Rate FiO2 06/19/19 09:31 156/78 06/19/19 09:31 87 06/19/19 08:42 97.6 20 100 2.0 06/17/19 21:30 Nasal Cannula I&O- Last 24 Hours up to 6 AM 06/19/19 06:00 Intake Total 900 ml Output Total 1725 ml Balance -825 ml Laboratory Data 24H LABS Laboratory Tests 2 06/19/19 05:26: Nucleated Red Blood Cells % (auto) 0.0, Anion Gap 11, Glomerular Filtration Rate 12.4L, Blood Urea Nitrogen 59H, Creatinine 3.83H, Sodium Level 140, Potassium Level 4.2#, Chloride Level 103, Carbon Dioxide Level 26, Calcium Level 7.4L, Phosphorus Level 5.0H, Magnesium Level 2.0 CBC/BMP Laboratory Tests 06/19/19 05:26 Red Blood Count 3.49 L, Mean Corpuscular Volume 94.6, Mean Corpuscular Hemoglobin 29.2, Mean Corpuscular Hemoglobin Concent 30.9 L, Red Cell Distribution Width 19.8 H, Calcium Level 7.4 L Microbiology Microbiology 06/17/19 Blood Culture - Preliminary, Resulted No growth after 24 hours . All specim... 06/17/19 Blood Culture - Preliminary, Resulted No growth after 24 hours . All specim... 06/18/19 Respiratory Virus Panel (PCR) ([facility]) - Final, Complete 06/18/19 Urine Culture - Final, Complete CODY LE MD Jun 19, 2019 10:58
[2019-06-19] MEDS ORDERED: predniSONE 20 MG TAB PO ONE (12:00)
[2019-06-19] MEDS: IPRATROPIUM 0.5MG/ALBUTEROL 2.5MG INH SOL UD 3ML (DUONEB)(J7620) NEB PRN (14:15)
--- NOTE | 2019-06-19 14:22 | IPN ---
DATE: 06/19/2019 Mrs. Blackmon is seen this morning on her bedside. She is feeling better today and reports that her dyspnea has improved. She denies any nausea or vomiting and reports that she had a good breakfast. He was dialyzed yesterday. PHYSICAL EXAMINATION Temperature 97.6 degrees Fahrenheit, heart rate 88 per minute and respiratory rate 20 per minute. Blood pressure 156/78 mmHg and oxygen saturation 100% on 2 liters oxygen. Head is atraumatic. Neck is supple and jugular venous distention (JVD) is mildly elevated. She is chronically ill looking and emaciated. Heart sounds are regular and systolic murmur grade 2/6 is audible. There is no pericardial friction rub. Lungs have diminished breath sounds with moderate bilateral air entry. Abdomen is soft with large polycystic kidneys, which are nontender. Bowel sounds are present. Extremities have no cyanosis or clubbing. Neurologically, she is at her baseline mentation without a focal deficit. Today's labs show WBC count 6.1, hemoglobin 10.2 and hematocrit 33.0. Platelets 180. Sodium 140, potassium 4.2, CO2 26, BUN 59 and creatinine 3.83. Calcium 7.4, phosphorus 5.0. PROBLEMS: 1. End-stage renal disease. The patient was dialyzed yesterday and next dialysis will be scheduled for tomorrow. Her electrolytes are stable at present. 2. Shortness of breath. Most likely related to chronic obstructive pulmonary disease (COPD) and mild volume overload. She was dialyzed yesterday and we removed about 1.6 liters of fluid. She seems to be doing much better today. We will try to remove another 1 to 1.5 liters of fluid with next dialysis tomorrow. At present, her volume status is reasonably well-compensated and there is no emergent need for dialysis today. 3. Hypertension. Blood pressure is reasonably well-controlled on current medications and changes are being made today. 4. Anemia. Her anemia is mild and stable and does not need any intervention at present. 5. Chronic obstructive pulmonary disease (COPD). The patient has chronic advanced lung disease and seems to be doing better today. I would recommend to continue with bronchodilator nebulizers.
[2019-06-19] MEDS ORDERED: SIMETHICONE 80 MG CHEW TAB PO PRN (14:30)
[2019-06-19] MEDS: NYSTATIN 500,000 U/5 ML SUSP UDC SS SCH (18:00)
[2019-06-19 18:35] VITALS: BP 144/76
[2019-06-19 20:00] VITALS: BP 143/75
[2019-06-19] MEDS: ESCITALOPRAM OXALATE 10 MG TAB (LEXAPRO) PO SCH (21:26)
[2019-06-19] MEDS: MOXIFLOXACIN 400 MG TAB PO SCH (21:26)
[2019-06-20] MEDS: IPRATROPIUM 0.5MG/ALBUTEROL 2.5MG INH SOL UD 3ML (DUONEB)(J7620) NEB SCH ×4 (02:00→18:54)
[2019-06-20 06:00] VITALS: BP 148/70
[2019-06-20] MEDS: SLF 3 ML SYR IV SCH ×3 (06:00→21:06)
[2019-06-20] MEDS: HEPARIN SOD (PORCINE) 5000 UNITS/ML VIAL SC SCH ×2 (06:00→20:50)
[2019-06-20 06:34] LABS: HEMATOCRIT 30.3 % (36.0-47.0); HEMOGLOBIN 9.4 g/dl (12.0-15.5); MEAN CORPUSCULAR HEMOGLOBIN 28.7 pg (27.0-33.0); MEAN CORPUSCULAR VOLUME 92.7 fl (80.0-96.0); PLATELET COUNT, AUTOMATED 202 10^3/uL (150-450); RED BLOOD COUNT 3.27 10^6/uL (4.00-5.40); WHITE BLOOD COUNT 6.7 10^3/uL (4.0-10.0)
[2019-06-20] MEDS: NYSTATIN 500,000 U/5 ML SUSP UDC SS SCH ×5 (06:39→23:08)
[2019-06-20] MEDS: DOCUSATE SODIUM 100 MG CAP PO SCH ×2 (06:41→20:49)
[2019-06-20] MEDS: CREON-24 CAPSULE PO SCH ×3 (06:41→20:49)
[2019-06-20] MEDS: LOSARTAN 50 MG TAB PO SCH (06:41)
[2019-06-20] MEDS: SUCROFERRIC OXYHYDROXIDE 500MG CHEW TAB (VELPHORO) PO SCH ×3 (06:42→20:50)
[2019-06-20] MEDS: OMEPRAZOLE 20 MG CAP PO SCH (06:42)
[2019-06-20] MEDS: LEVOTHYROXINE 137MCG TABLET (0.137MG) PO SCH (06:42)
[2019-06-20] MEDS: amLODIPine 10 MG TAB PO SCH (06:42)
[2019-06-20 06:57] LABS: CALCIUM LEVEL 7.1 MG/DL (8.8-10.2); CREATININE FOR GFR 4.42 MG/DL (0.55-1.30); GLOMERULAR FILTRATION RATE 10.5 (>39); MAGNESIUM LEVEL 1.9 MG/DL (1.8-2.4); PHOSPHORUS LEVEL 4.8 MG/DL (2.5-4.9); POTASSIUM SERUM 4.3 MEQ/L (3.5-5.1)
[2019-06-20] MEDS: predniSONE 20 MG TAB PO SCH (07:37)
[2019-06-20] MEDS: SYMBICORT 160/4.5MCG INHALER 6GM INH SCH ×2 (07:55→21:58)
[2019-06-20] MEDS: NICOTINE 14 MG/24 HR TRANSDERMAL TD SCH (09:00)
[2019-06-20] MEDS ORDERED: LIDOCAINE 1% SDV 5 ML VIAL SQ ONE (11:30)
--- NOTE | 2019-06-20 12:06 | IPN ---
DATE: 06/20/2019 Ms. Blackmon is seen this morning on her bedside. She is feeling much better now and her shortness of breath has improved. She denies any nausea, vomiting, fever or chills. PHYSICAL EXAMINATION: Temperature 98.2 degrees Fahrenheit, heart rate 87 per minute. Respiratory rate 18 per minute. Blood pressure 140/70 mmHg and oxygen saturation 94%. Head is atraumatic. She looks chronically ill with significant wasting and emaciation. Her neck veins are mildly distended. Heart sounds are regular. Lungs with diminished breath sounds. Abdomen is soft, and large polycystic kidneys are palpable. Bowel sounds are normal. Extremities have no cyanosis or clubbing. Neurologically, she is awake, alert, and at her base mentation. Today's labs show WBC count 6.7, hemoglobin 9.4, hematocrit 30.3, platelets 202. Sodium 139, potassium 4.3, CO2 25, BUN 76 and creatinine 4.42. Calcium now is 7.1, phosphorus 4.8 and magnesium 1.9. PROBLEMS: 1. End-stage renal disease: Patient is due for dialysis today and is going to be dialyzed this afternoon. Her electrolytes are within normal range. 2. Congestive heart failure: Volume status has improved with two dialysis treatments. Will try to remove about 1 to 1.5 liters of fluid today with dialysis. 3. Chronic obstructive pulmonary disease (COPD): This is a chronic issue, however, she seems to be significantly improved. She should continue with her nebulizers. 4. Hypertension: Blood pressure is well controlled on current medications and no changes have been made today. 5. Anemia: Her anemia is slightly worse but no urgent intervention is indicated. We will continue to monitor in the outpatient clinic. DISPOSITION: Patient is likely to be ready for discharge tomorrow. She will be dialyzed late this afternoon.
[2019-06-20] MEDS ORDERED: NYST50SS SS (12:18)
[2019-06-20] MEDS ORDERED: PRED20TA PO (12:18)
[2019-06-20] MEDS ORDERED: MOXI400T11 PO (12:18)
--- NOTE | 2019-06-20 12:28 | IPNPDOC ---
Subjective Date Seen The patient was seen on 06/20/19. Subjective Chief Complaint/HPI Follow-up COPD exacerbation Events since last encounter Patient seen and examined episode. Patient states she is at her baseline breathing comfortably on 2 L oxygen. Patient still with chronic cough. Patient denies fevers, chills, chest pain, nausea, vomiting, diarrhea, leg pain or swelling. Plan to dialyze today and discharge home tomorrow Objective Physical Examination General Exam: Positive: Alert, Cooperative, No Acute Distress, Other (extremely cachectic female laying in bed in NAD) Chest Exam: Positive: Clear to auscultation, Normal air movement Heart Exam: Positive: Rate Normal, Normal S1, Normal S2 Abdomen Exam: Positive: Normal bowel sounds, Soft; Negative: Tenderness Extremity Exam: Positive: Normal pulses; Negative: Edema Skin Exam: Negative: Rash Neuro Exam: Positive: Normal Speech Psych Exam: Positive: Mental status NL, Mood NL, Oriented x 3 Assessment /Plan Assessment This is a 68 yo female with pmhx of COPD on 2 L home O2, end-stage renal disease on HD MWF, HFpEF, Hypothyroidism, HTN presented to the ER with worsening SOB found to be in COPD exacerbation complicated by +/- PNA. PT treated with steroids, nebs and moxifloxicin with improvement in symptoms. Renal consulted for dialysis. Pt improved and plan to discharge pt tomorrow after her dialysis session today. Plan/VTE VTE Prophylaxis Ordered?: Yes Plan #copd exacerbation with likely PNA -cont. pred 40mg daily -duoneb q4h -c/w symbicort -hold atrovent -c/w tessalon perles prn -cont. moxiflaxicin -viral PCR neg -blood cultures NGTD -sputum culture never sent -GI ppx -procal 2.56 consistent with bacterial infection #ESRD on HD MWF appreciate nephro consult #CHF with preserved ef//HTN//elevated troponin hold ivf monitor volume status c/w losartan and amlodipine probnp: 168K ekg - negative for acs f/u echo - shows preserved EF of 50-55% and findings largely consistent with prior echo from 2017 hypothyrodism c/w levothyroxine -f/u tft: TSH 0.062, free t4 still pending Disposition dialysis today, home tomorrow VS, I&O, 24H, Fishbone Vital Signs/I&O Vital Signs Date Time Temp Pulse Resp B/P (MAP) Pulse Ox O2 Delivery O2 Flow Rate FiO2 06/20/19 09:00 1.5 06/20/19 06:42 87 148/70 06/20/19 06:00 98.2 18 94 06/17/19 21:30 Nasal Cannula I&O- Last 24 Hours up to 6 AM 06/20/19 06:00 Intake Total 360 ml Output Total 0 ml Balance 360 ml Laboratory Data 24H LABS Laboratory Tests 2 06/20/19 06:06: Nucleated Red Blood Cells % (auto) 0.0, Anion Gap 11, Glomerular Filtration Rate 10.5L, Blood Urea Nitrogen 76H, Creatinine 4.42H, Sodium Level 139, Potassium Level 4.3, Chloride Level 103, Carbon Dioxide Level 25, Calcium Level 7.1L, Phosphorus Level 4.8, Magnesium Level 1.9 CBC/BMP Laboratory Tests 06/20/19 06:06 Red Blood Count 3.27 L, Mean Corpuscular Volume 92.7, Mean Corpuscular Hemoglobin 28.7, Mean Corpuscular Hemoglobin Concent 31.0 L, Red Cell Distribution Width 19.9 H, Calcium Level 7.1 L Microbiology Microbiology 06/17/19 Blood Culture - Preliminary, Resulted No Growth after 48 hours. All Specime... 06/17/19 Blood Culture - Preliminary, Resulted No Growth after 48 hours. All Specime... 06/18/19 Respiratory Virus Panel (PCR) ([facility]) - Final, Complete 06/18/19 Urine Culture - Final, Complete CODY LE MD Jun 20, 2019 12:28
[2019-06-20 14:00] VITALS: BP 142/72
[2019-06-20] MEDS ORDERED: ALBUTEROL 90 MCG/ACT 8GM HFA INHALER INH PRN (17:15)
[2019-06-20] MEDS: ESCITALOPRAM OXALATE 10 MG TAB (LEXAPRO) PO SCH (20:49)
[2019-06-20] MEDS: MOXIFLOXACIN 400 MG TAB PO SCH (20:49)
[2019-06-20 21:00] VITALS: BP 150/81
[2019-06-21] MEDS: IPRATROPIUM 0.5MG/ALBUTEROL 2.5MG INH SOL UD 3ML (DUONEB)(J7620) NEB SCH ×2 (02:00→07:28)
[2019-06-21] MEDS: NYSTATIN 500,000 U/5 ML SUSP UDC SS SCH (05:54)
[2019-06-21] MEDS: LEVOTHYROXINE 137MCG TABLET (0.137MG) PO SCH (05:54)
[2019-06-21 06:00] VITALS: BP 147/96
[2019-06-21] MEDS: HEPARIN SOD (PORCINE) 5000 UNITS/ML VIAL SC SCH (06:00)
[2019-06-21] MEDS: SLF 3 ML SYR IV SCH (06:04)
[2019-06-21 06:24] LABS: HEMATOCRIT 31.2 % (36.0-47.0); HEMOGLOBIN 9.6 g/dl (12.0-15.5); MEAN CORPUSCULAR HEMOGLOBIN 28.2 pg (27.0-33.0); MEAN CORPUSCULAR HGB CONC 30.8 g/dl (32.0-36.5); MEAN CORPUSCULAR VOLUME 91.8 fl (80.0-96.0); PLATELET COUNT, AUTOMATED 203 10^3/uL (150-450); WHITE BLOOD COUNT 7.2 10^3/uL (4.0-10.0)
[2019-06-21 06:45] LABS: CALCIUM LEVEL 7.9 MG/DL (8.8-10.2); CREATININE FOR GFR 2.56 MG/DL (0.55-1.30); GLOMERULAR FILTRATION RATE 19.7 (>39); POTASSIUM SERUM 3.8 MEQ/L (3.5-5.1)
[2019-06-21] MEDS: SYMBICORT 160/4.5MCG INHALER 6GM INH SCH (07:25)
[2019-06-21] MEDS: ASPIRIN 81 MG ENTERIC TAB PO SCH (08:27)
[2019-06-21] MEDS: DOCUSATE SODIUM 100 MG CAP PO SCH (08:27)
[2019-06-21] MEDS: OMEPRAZOLE 20 MG CAP PO SCH (08:27)
[2019-06-21] MEDS: CREON-24 CAPSULE PO SCH (08:27)
[2019-06-21] MEDS: predniSONE 20 MG TAB PO SCH (08:27)
[2019-06-21] MEDS: SUCROFERRIC OXYHYDROXIDE 500MG CHEW TAB (VELPHORO) PO SCH ×2 (08:27→12:01)
[2019-06-21] MEDS: NICOTINE 14 MG/24 HR TRANSDERMAL TD SCH (08:28)
[2019-06-21] MEDS: amLODIPine 10 MG TAB PO SCH (08:29)
[2019-06-21 08:30] VITALS: BP 147/96
[2019-06-21] MEDS: LOSARTAN 50 MG TAB PO SCH (08:30)
[2019-06-21] MEDS ORDERED: PRED10TA2 PO (16:07)
--- NOTE | 2019-06-21 16:09 | DS.PDOC ---
Discharge Summary General Date of Admission Jun 17, 2019 at 22:44 Date of Discharge June 21, 2019 Discharge Summary DISCHARGE DIAGNOSES: ACUTE COPD EXACERBATION CHRONIC HYPOXIC RESPIRATORY FAILURE ON HOME OXYGEN 2LITERS NC ESRD ON HD MWF CHF WITH PRESERVED EJECTION FRACTION HYPOTHYROIDISM HTN DISCHARGE MEDICATIONS: PLS SEE BELOW HISTORY OF PRESENTING ILLNESS: This is a 68 yo female with pmhx of COPD on 2 L home O2, end-stage renal disease on HD MWF, HFpEF, Hypothyroidism, HTN presented to the ER with worsening SOB found to be in COPD exacerbation complicated by +/- PNA. PT treated with steroids, nebs and moxifloxicin with improvement in symptoms. Renal consulted for dialysis. Pt improved and plan to discharge pt tomorrow after her dialysis session today. HOSPITAL COURSE: copd exacerbation with likely PNA -cont. pred 40mg daily -duoneb q4h -c/w symbicort -hold atrovent -c/w tessalon perles prn -cont. moxiflaxicin -viral PCR neg -blood cultures NGTD -sputum culture never sent -GI ppx -procal 2.56 consistent with bacterial infection ESRD on HD MWF appreciate nephro consult CHF with preserved ef//HTN//elevated troponin hold ivf monitor volume status c/w losartan and amlodipine probnp: 168K ekg - negative for acs f/u echo - shows preserved EF of 50-55% and findings largely consistent with prior echo from 2017 hypothyrodism c/w levothyroxine -f/u tft: TSH 0.062, free t4 still pending DISCHARGE PHYSICAL EXAMINATION: VITALS: PLS SEE BELOW General Exam: Positive: Alert, Cooperative, No Acute Distress, Other (extremely cachectic female laying in bed in NAD) Chest Exam: Positive: Clear to auscultation, Normal air movement Heart Exam: Positive: Rate Normal, Normal S1, Normal S2 Abdomen Exam: Positive: Normal bowel sounds, Soft; Negative: Tenderness Extremity Exam: Positive: Normal pulses; Negative: Edema Skin Exam: Negative: Rash Neuro Exam: Positive: Normal Speech Psych Exam: Positive: Mental status NL, Mood NL, Oriented x 3 LABORATORY DATA, IMAGING STUDIES, MICROBIOLOGY: PLS SEE BELOW TIME SPENT ON DISCHARGE. 32 MINUTES Vital Signs/I&Os Vital Signs Date Time Temp Pulse Resp B/P (MAP) Pulse Ox O2 Delivery O2 Flow Rate FiO2 06/21/19 08:30 1.5 06/21/19 08:30 147/96 06/21/19 08:29 95 06/21/19 06:00 98.1 20 98 06/17/19 21:30 Nasal Cannula I&O- Last 24 Hours up to 6 AM 06/21/19 06:00 Intake Total 240 ml Output Total 800 ml Balance -560 ml Laboratory Data Labs 24H Laboratory Tests 2 06/21/19 06:00: Nucleated Red Blood Cells % (auto) 0.0, Anion Gap 8, Glomerular Filtration Rate 19.7L, Blood Urea Nitrogen 35#H, Creatinine 2.56H, Sodium Level 140, Potassium Level 3.8, Chloride Level 102, Carbon Dioxide Level 30, Calcium Level 7.9L, Phosphorus Level 3.0#, Magnesium Level 2.0 CBC/BMP Laboratory Tests 06/21/19 06:00 Red Blood Count 3.40 L, Mean Corpuscular Volume 91.8, Mean Corpuscular Hemoglobin 28.2, Mean Corpuscular Hemoglobin Concent 30.8 L, Red Cell Distribution Width 19.6 H, Calcium Level 7.9 L Microbiology Microbiology 06/17/19 Blood Culture - Preliminary, Resulted No Growth after 72 hours. All specime... 06/17/19 Blood Culture - Preliminary, Resulted No Growth after 72 hours. All specime... 06/18/19 Respiratory Virus Panel (PCR) ([facility]) - Final, Complete 06/18/19 Urine Culture - Final, Complete Discharge Medications Scheduled Amlodipine Besylate (Amlodipine Besylate) 10 Mg Tab, 10 MG PO DAILY, (Reported) Aspirin (Aspirin EC) 81 Mg Tabec, 81 MG PO 4XWK, (Reported) TAKES ON NON DIALYSIS DAYS, , , SAT, SUN Budesonide/Formoterol (Symbicort 160-4.5 Mcg Inhaler) 60 Puff/Inhaler Aers, 2 PUFF INH BID, (Reported) Escitalopram Oxalate (Lexapro) 20 Mg Tab, 20 MG PO QHS, (Reported) Folic Acid/Vit B Complex and C (Arielle-Roby Tablet) 1 Tab Tab, 1 TAB PO DAILY, (Re ported) Levothyroxine Sodium (Synthroid) 137 Mcg Tab, 137 MCG PO DAILY, (Reported) Lidocaine/Prilocaine (Lidocaine-Prilocaine Cream) 2.5%/2.5% Cream..g., 1 APLCT TOP ASDIRECTED, (Reported) APPLIES A SMALL AMOUNT TO ACCESS SITE ON DIALYSIS DAYS Lorazepam (Ativan) 1 Mg Tablet, 1 MG PO TID, (Reported) Losartan Potassium (Losartan Potassium) 100 Mg Tab, 100 MG PO DAILY, (Reported) Moxifloxacin HCl (Moxifloxacin HCl) 400 Mg Tablet, 400 MG PO DAILY@2100 Nystatin (Nystatin Oral Susp) 100,000 Unit/1 Ml Oral.susp, 5 ML SS Q6H Omeprazole (Omeprazole) 20 Mg Capsule.dr, 20 MG PO DAILY, (Reported) Pancreatic Enzymes (Creon Dr 24,000 Units Capsule) 1 Ea Capcr, 1 CAP PO TID, (Reported) Prednisone (Prednisone) 10 Mg Tablet, 10 MG PO TAPER Take 4 tabs daily x 3 days, then 3 tabs daily x 3 days, then 2 tabs daily x 3 days, then 1 tab daily x 3 days and stop Sucroferric Oxyhydroxide (Velphoro) 500 Mg Chw, 500 MG PO WM, (Reported) Scheduled PRN Albuterol Sulf (Albuterol Sulfate) 2.5 Mg/3 Ml Nebu, 2.5 MG INH Q4H PRN for SHORTNESS OF BREATH, (Reported) Albuterol Sulfate (Proair Hfa) 108 Mcg/Act Aer, 2 PUFFS INH Q4H PRN for SHORTNESS OF BREATH, (Reported) Diclofenac Sodium (Diclofenac Sodium) 1% 100GM Gel..gram., 1 APLCT TOP TID PRN for NECK PAIN, (Reported) Ipratropium [place] (Atrovent Hfa) 17 Mcg/Act Aer, 2 PUFFS INH QID PRN for SHORTNESS OF BREATH, (Reported) Allergies Coded Allergies: lisinopril (Verified Allergy, Severe, ANGIOEDEMA, 02/19/19) codeine (Verified Adverse Reaction, Mild, GI UPSET, 02/19/19) FELIX ALVES MD Jun 21, 2019 16:05
== END 2019-06-21 12:40 | disposition home or self-care (01) | DRG 193 ==
LOC: M ED 17:26 → EDBD 17:26 → M ED INP 22:44 → M PCU 06-18 00:37 → M MS4PR 06-19 18:26
PROVIDERS: ADMIT Internal Medicine; ATTEND General Practice
PROC: 5A1D70Z Performance of Urinary Filtration, Intermittent, Less than 6 Hours Per Day (ICD-10-PCS; principal; 2019-06-17)
DX: J18.9 Pneumonia, unspecified organism (principal); N18.6 End stage renal disease; J44.1 Chronic obstructive pulmonary disease with (acute) exacerbation; I50.32 Chronic diastolic (congestive) heart failure; J96.11 Chronic respiratory failure with hypoxia; J44.0 Chronic obstructive pulmonary disease with (acute) lower respiratory infection; I13.2 Hypertensive heart and chronic kidney disease with heart failure and with stage 5 chronic kidney disease, or end stage renal disease; Q61.3 Polycystic kidney, unspecified; E03.9 Hypothyroidism, unspecified; Z79.899 Other long term (current) drug therapy; Z79.82 Long term (current) use of aspirin; Z88.8 Allergy status to other drugs, medicaments and biological substances; E87.5 Hyperkalemia

== ENCOUNTER 2019-06-25 08:43 | Inpatient (IN) | payer MEDICARE, MEDICAID ==
[~2019-06-25] VITALS: Ht 157.5 cm; Wt 37.3 kg
[2019-06-25] MEDS: LEVOTHYROXINE 137MCG TABLET (0.137MG) PO SCH (06:00)
[~2019-06-25 08:43] MED LIST changes: +ATIV1TAB7 PO; +MOXI400T11 PO; +NYST50SS SS
[2019-06-25] MEDS ORDERED: IPRATROPIUM 0.5MG/ALBUTEROL 2.5MG INH SOL UD 3ML (DUONEB)(J7620) NEB ONE (09:00)
[2019-06-25] MEDS ORDERED: ALBUTEROL SULFATE 2.5 MG/0.5 ML INH NEB SOLN INH ONE (09:00)
[2019-06-25] MEDS: NEPHRO-VIT TAB (NEPHROCAPS) PO SCH (09:00)
[2019-06-25 09:54] LABS: BASO % 0.1 % (0.0-1.0); EOS # 0.1 10^3/uL (0.0-0.50); EOS % 1.5 % (0.0-3.0); HEMATOCRIT 31.7 % (36.0-47.0); HEMOGLOBIN 9.9 g/dl (12.0-15.5); LYMPH # 0.9 10^3/uL (1.5-4.5); LYMPH % 10.4 % (24.0-44.0); MEAN CORPUSCULAR HEMOGLOBIN 29.2 pg (27.0-33.0); MEAN CORPUSCULAR HGB CONC 31.2 g/dl (32.0-36.5); MEAN CORPUSCULAR VOLUME 93.5 fl (80.0-96.0); MONO # 0.3 10^3/uL (0.0-0.8); MONO % 3.9 % (0.0-5.0); NEUTROPHILS # 7.4 10^3/uL (1.8-7.7); NEUTROPHILS % 83.5 % (36.0-66.0); PLATELET COUNT, AUTOMATED 187 10^3/uL (150-450); RED BLOOD COUNT 3.39 10^6/uL (4.00-5.40); WHITE BLOOD COUNT 8.8 10^3/uL (4.0-10.0)
--- NOTE | 2019-06-25 09:54 | REP ---
CHEST, PORTABLE: AP portable view of the chest is performed. Comparison 06/17/2019. There is some mild streaky infiltrate or atelectasis in the right lung base. The left lung appears clear. Heart is not enlarged. Mediastinal silhouette is unchanged with mild calcification and tortuosity of the thoracic aorta. Electronically Signed by Cristopher Montoya MD 06/27/2019 07:41 A
[2019-06-25 10:14] LABS: ALBUMIN 3.2 GM/DL (3.2-5.2); BILIRUBIN,DIRECT 0.3 MG/DL (0.0-0.2); BILIRUBIN,TOTAL 0.7 MG/DL (0.2-1.0); CALCIUM LEVEL 7.1 MG/DL (8.8-10.2); CK-MB VALUE MASS 5.4 NG/ML (<3.6); CREATININE FOR GFR 5.84 MG/DL (0.55-1.30); GLOMERULAR FILTRATION RATE 7.6 (>39); MB/CK RELATIVE INDEX 11.25 (< OR =4); POTASSIUM SERUM 4.7 MEQ/L (3.5-5.1); TOTAL PROTEIN 5.6 GM/DL (6.4-8.2); TROPONIN I 0.09 NG/ML (< 0.10)
[2019-06-25] MEDS ORDERED: PIPERACILLIN/TAZOBACTAM SOD 4.5 GM in D5W MINI-BAG PLUS 50 ML IV ONE (10:30)
[2019-06-25 11:08] LABS: INR 1.17; PROTHROMBIN TIME 14.6 SECONDS (11.8-14.0)
[2019-06-25 11:09] LABS: PARTIAL THROMBOPLASTIN TIME 24.4 SECONDS (25.0-38.4)
[2019-06-25] MEDS ORDERED: methylPREDNISolone INJ 125 MG/2 ML VIAL (J2930) IV ONE (11:15)
[2019-06-25] MEDS ORDERED: ALBUTEROL SULFATE 2.5 MG/0.5 ML INH NEB SOLN INH PRN (13:00)
[2019-06-25] MEDS: LOSARTAN 50 MG TAB PO SCH (13:57)
[2019-06-25 14:00] VITALS: BP 160/82
[2019-06-25] MEDS: OMEPRAZOLE 20 MG CAP PO SCH (14:26)
[2019-06-25] MEDS: amLODIPine 10 MG TAB PO SCH (14:26)
[2019-06-25] MEDS: CLOTRIMAZOLE 10 MG TROCHE PO SCH ×3 (15:16→22:56)
[2019-06-25] MEDS ORDERED: CREON-24 CAPSULE PO SCH (16:00)
[2019-06-25] MEDS: LORazepam 1 MG TAB PO SCH ×2 (17:21→22:56)
[2019-06-25] MEDS: SUCROFERRIC OXYHYDROXIDE 500MG CHEW TAB (VELPHORO) PO SCH (17:21)
[2019-06-25] MEDS: CREON-24 CAPSULE PO SCH (17:21)
--- NOTE | 2019-06-25 18:10 | HPEPDOC ---
General Date of Admission Jun 25, 2019 at 12:51 Date of Service: Jun 25, 2019 Chief Complaint The patient is a 68-year-old female admitted with a reason for visit of Copd With Chronic Bronchitis Esrd Thrush. History of Present Illness 68f with ESRD on HD, copd, hypothyroid, dchf, recent admission for pneumonia, who is brought back due to lethargy, inability to eat, and sob after missing two dialysis sessions. She has severe oral thrush for which she was prescribed nystatin solution without much relief. history and ROS are limited due to lethargy Home Medications Scheduled Amlodipine Besylate (Amlodipine Besylate) 10 Mg Tab, 10 MG PO DAILY, (Reported) Aspirin (Aspirin EC) 81 Mg Tabec, 81 MG PO 4XWK, (Reported) TAKES ON NON DIALYSIS DAYS, , , SAT, SUN Budesonide/Formoterol (Symbicort 160-4.5 Mcg Inhaler) 60 Puff/Inhaler Aers, 2 PUFF INH BID, (Reported) Folic Acid/Vit B Complex and C (Arielle-Roby Tablet) 1 Tab Tab, 1 TAB PO DAILY, (Reported) Levothyroxine Sodium (Synthroid) 137 Mcg Tab, 137 MCG PO DAILY, (Reported) Lidocaine/Prilocaine (Lidocaine-Prilocaine Cream) 2.5%/2.5% Cream..g., 1 APLCT TOP ASDIRECTED, (Reported) APPLIES A SMALL AMOUNT TO ACCESS SITE ON DIALYSIS DAYS Lorazepam (Ativan) 1 Mg Tablet, 1 MG PO TID, (Reported) Losartan Potassium (Losartan Potassium) 100 Mg Tab, 100 MG PO DAILY, (Reported) Nystatin (Nystatin Oral Susp) 100,000 Unit/1 Ml Oral.susp, 5 ML SS Q6H Omeprazole (Omeprazole) 20 Mg Capsule.dr, 20 MG PO DAILY, (Reported) Pancreatic Enzymes (Creon Dr 24,000 Units Capsule) 1 Ea Capcr, 1 CAP PO TID, (Reported) Sucroferric Oxyhydroxide (Velphoro) 500 Mg Chw, 500 MG PO WM, (Reported) Scheduled PRN Albuterol Sulf (Albuterol Sulfate) 2.5 Mg/3 Ml Nebu, 2.5 MG INH Q4H PRN for SHORTNESS OF BREATH, (Reported) Albuterol Sulfate (Proair Hfa) 108 Mcg/Act Aer, 2 PUFFS INH Q4H PRN for SHORTNESS OF BREATH, (Reported) Diclofenac Sodium (Diclofenac Sodium) 1% 100GM Gel..gram., 1 APLCT TOP TID PRN for NECK PAIN, (Reported) Ipratropium [place] (Atrovent Hfa) 17 Mcg/Act Aer, 2 PUFFS INH QID PRN for SHORTNESS OF BREATH, (Reported) Allergies Coded Allergies: lisinopril (Verified Allergy, Severe, ANGIOEDEMA, 02/19/19) codeine (Verified Adverse Reaction, Mild, GI UPSET, 02/19/19) Past Medical History Medical History ESRD, copd, dchf, thyroid Social History * Smoker: former Smoker A-FIB/CHADSVASC A-FIB History Current/History of A-Fib/PAF?: No Current PO Anticoag Therapy: No Age/Risk Factor Scoring CHADSVASC: CHADSVASC Response (Comments) Value Age Risk Factor Age 65-74 years old 1 Gender Risk Factor Female 1 Hx of CHF Yes 1 Hx of HTN Yes 1 Hx of Stroke/TIA/or VTE No 0 Hx of Diabetes No 0 Hx of Vascular Disease No 0 Total 4 Treatment Treatment ordered: NONE Reason Anticoagulant not given: Not indicated/[id number] Physical Examination General Exam: Positive: Cooperative, Mild Distress, Other (cachectic, lethargic) Eye Exam: Positive: PERRLA, Conjunctiva & lids normal, EOMI; Negative: Sclera icteric ENT Exam: Positive: Atraumatic, Mucous membr. moist/pink, Pharynx Normal Neck Exam: Positive: Supple, JVD; Negative: thyromegaly Chest Exam: Positive: Clear to auscultation, Diminished Heart Exam: Positive: Rate Normal, Regular Rhythm, Normal S1, Normal S2; Negative: Murmurs, Rubs Abdomen Exam: Positive: Normal bowel sounds, Soft; Negative: Tenderness, Hepatospenomegaly Extremity Exam: Positive: Edema Skin Exam: Positive: Nl turgor and temperature; Negative: Breakdown, Lesion Neuro Exam: Positive: Normal Gait, Normal Speech, Cranial Nerves 3-12 NL Psych Exam: Positive: Mood NL; Negative: Mental status NL Vital Signs Vital Signs Date Time Temp Pulse Resp B/P (MAP) Pulse Ox O2 Delivery O2 Flow Rate FiO2 06/25/19 15:38 2.0 06/25/19 14:00 97.1 78 19 160/82 (108) 95 06/25/19 12:30 Nasal Cannula Laboratory Data Labs 24H Laboratory Tests 2 06/25/19 09:12: POC pH (Misc Panel) 7.347L, POC Base Excess (Misc Panel) -2.0, POC Saturated Percent O2 (Misc) 100H, POC pO2 (Misc Panel) 177.0H, POC pCO2 (Misc Panel) 43.7, POC HCO3 (Misc Panel) 24.0, POC Total CO2 (Misc Panel) 25.0 06/25/19 09:33: POC Total CO2 (Misc Panel) 24.0, Immature Granulocyte % (Auto) 0.6, White Blood Count 8.8, Red Blood Count 3.39L, Hemoglobin 9.9L, Hematocrit 31.7L, Mean Corpuscular Volume 93.5, Mean Corpuscular Hemoglobin 29.2, Mean Corpuscular Hemoglobin Concent 31.2L, Red Cell Distribution Width 19.8H, Platelet Count 187, Neutrophils (%) (Auto) 83.5H, Lymphocytes (%) (Auto) 10.4L, Monocytes (%) (Auto) 3.9, Eosinophils (%) (Auto) 1.5, Basophils (%) (Auto) 0.1, Neutrophils # (Auto) 7.4, Lymphocytes # (Auto) 0.9L, Monocytes # (Auto) 0.3, Eosinophils # (Auto) 0.1, Basophils # (Auto) 0.0, Nucleated Red Blood Cells % (auto) 0.0, POC Glucose (Misc Panel) 77, POC Sodium (Misc Panel) 139, POC Potassium (Misc Panel) 4.5, POC Chloride (Misc Panel) 105, POC Blood Urea Nitrogen (Misc Panel 95H, POC Io nized Calcium (Misc Panel) 3.6L, POC Creatinine (Misc Panel) 6.2H, POC Hematocrit (Misc Panel) 31.0L, Anion Gap 13, Glomerular Filtration Rate 7.6L, Lactic Acid Level 0.8, Calcium Level 7.1L, Aspartate Amino Transf (AST/SGOT) 18, Alanine Aminotransferase (ALT/SGPT) 15, Alkaline Phosphatase 103, Total Bilirubin 0.7, Direct Bilirubin 0.3H, Total Creatine Kinase 48, Creatine Kinase MB 5.4H, Creatine Kinase MB Relative Index 11.25H, Troponin I 0.09, Total Protein 5.6L, Albumin 3.2, Albumin/Globulin Ratio 1.33, Lipase 255 06/25/19 10:47: Prothrombin Time 14.6H, Prothromb Time International Ratio 1.17, Activated Partial Thromboplast Time 24.4L CBC/BMP Laboratory Tests 06/25/19 09:33 Red Blood Count 3.39 L, Mean Corpuscular Volume 93.5, Mean Corpuscular He moglobin 29.2, Mean Corpuscular Hemoglobin Concent 31.2 L, Red Cell Distribution Width 19.8 H, Neutrophils (%) (Auto) 83.5 H, Lymphocytes (%) (Auto) 10.4 L, Monocytes (%) (Auto) 3.9, Eosinophils (%) (Auto) 1.5, Basophils (%) (Auto) 0.1, Neutrophils # (Auto) 7.4, Lymphocytes # (Auto) 0.9 L, Monocytes # (Auto) 0.3, Eosinophils # (Auto) 0.1, Basophils # (Auto) 0.0 Microbiology Microbiology 06/25/19 Blood Culture, Received Pending 06/25/19 Blood Culture, Received Pending Assessment/Plan 68f with esrd, copd, chf, thrush ESRD has been too lethargic to go to hd nephrology consulted labs currently ok careful monitoring of volume and electrolytes Thrush switch nystatin to clotrimazole mouth care copd continue steroids continue duonebs continue symbicort diastolic chf volume to be managed with hd GOC pt is cachectic and frail will need to clarify goals of care with pt when she is more alert If her mental status does not improve with hd will need to clarify with family currently DNR Plan / VTE VTE Prophylaxis Ordered?: Yes ADAL ESCOBAR MD Jun 25, 2019 18:10
--- NOTE | 2019-06-25 19:54 | ECGEPIP ---
[facility] - ED Test Date: 2019-06-25 Pat Name: CHIQUITA FELIPE Department: Room: - Gender: Female Regional Director Of Admissions: : 1950 Requested By: Soledad Castillo Order Number: [id number] Reading MD: Soledad Castillo Measurements Intervals [place] Rate: 75 P: 77 NC: 145 QRS: -53 QRSD: 77 T: 96 QT: 465 QTc: 521 Interpretive Statements SINUS RHYTHM WITH OCCASIONAL ECTOPIC PREMATURE COMPLEXES LAD LEFT ANTERIOR FASCICULAR BLOCK SEPTAL MYOCARDIAL INFARCTION, PROBABLY OLD LOW QRS VOLTAGE LIMB LEADS NONSPECIFIC ST T WAVE CHANGES PROLONGED QTC CW 06/18/[address] T WAVE CHANGES Electronically Signed on 06-25-2019 19:54:30 EDT by Soledad Castillo
[2019-06-25] MEDS: SYMBICORT 160/4.5MCG INHALER 6GM INH SCH (20:00)
[2019-06-25] MEDS: methylPREDNISolone INJ 40 MG/1 ML VIAL (J2920) IV SCH (22:56)
[2019-06-25] MEDS: HEPARIN SOD (PORCINE) 5000 UNITS/ML VIAL SC SCH ×2 (22:56→23:40)
[2019-06-26] MEDS: LEVOTHYROXINE 137MCG TABLET (0.137MG) PO SCH (05:14)
[2019-06-26] MEDS: CLOTRIMAZOLE 10 MG TROCHE PO SCH ×5 (05:14→20:46)
[2019-06-26 06:00] VITALS: BP 160/77
[2019-06-26] MEDS: SYMBICORT 160/4.5MCG INHALER 6GM INH SCH ×2 (07:52→20:39)
[2019-06-26] MEDS: ASPIRIN 81 MG ENTERIC TAB PO SCH (09:41)
[2019-06-26] MEDS: SUCROFERRIC OXYHYDROXIDE 500MG CHEW TAB (VELPHORO) PO SCH ×3 (09:41→16:37)
[2019-06-26] MEDS: CREON-24 CAPSULE PO SCH ×3 (09:41→16:37)
[2019-06-26] MEDS: NEPHRO-VIT TAB (NEPHROCAPS) PO SCH (09:41)
[2019-06-26] MEDS: amLODIPine 10 MG TAB PO SCH (09:41)
[2019-06-26] MEDS: OMEPRAZOLE 20 MG CAP PO SCH ×2 (09:42→16:37)
[2019-06-26] MEDS: HEPARIN SOD (PORCINE) 5000 UNITS/ML VIAL SC SCH ×2 (09:42→20:45)
[2019-06-26] MEDS: LOSARTAN 50 MG TAB PO SCH (09:42)
[2019-06-26] MEDS: LORazepam 1 MG TAB PO SCH ×3 (09:42→20:46)
[2019-06-26] MEDS: methylPREDNISolone INJ 40 MG/1 ML VIAL (J2920) IV SCH (12:30)
[2019-06-26 14:00] VITALS: BP 160/78
--- NOTE | 2019-06-26 15:21 | IPNPDOC ---
Text Note Date of Service The patient was seen on 06/26/19. NOTE Subjective: Patient seen and examined at bedside. Objective: General: NAD, grossly cachectic, emaciated HEENT: NC/AT Lungs: CTA B/L Heart: +S1S2, RRR Abd: soft, NT, +BS Ext: cachectic A/P: 68f with ESRD on HD, copd, hypothyroid, HFpEF, recent admission for pneumonia, who is brought back due to lethargy, inability to eat, and sob after missing two dialysis sessions. She has severe oral thrush for which she was prescribed nystatin solution without much relief. #failure to thrive - underweight - hospice c/s pending #ESRD has been too lethargic to go to hd nephrology consulted #Thrush - clotrimazole #copd - continue steroids - continue duonebs - continue symbicort #HFpEF Dispo: pt is cachectic and frail, hospice c/s pending. VS,Fishbone, I+O VS, Fishbone, I+O Vital Signs Date Time Temp Pulse Resp B/P (MAP) Pulse Ox O2 Delivery O2 Flow Rate FiO2 06/26/19 14:00 98.0 74 19 160/78 (105) 95 2.0 06/25/19 12:30 Nasal Cannula I&O- Last 24 Hours up to 6 AM 06/26/19 05:59 Intake Total 630 ml Output Total 1200 ml Balance -570 ml KELSI MEEK MD Jun 26, 2019 15:21
[2019-06-26] MEDS: IPRATROPIUM 0.5MG/ALBUTEROL 2.5MG INH SOL UD 3ML (DUONEB)(J7620) NEB PRN (16:57)
[2019-06-26 22:00] VITALS: BP 149/86
--- NOTE | 2019-06-26 22:58 | CR ---
DATE OF CONSULTATION: 06/25/2019 REQUESTING PHYSICIAN: Dr. Quique Joyce CONSULTING PHYSICIAN: Dr. Garces REASON FOR CONSULTATION: Management of end-stage renal disease and fluid overload. CHIEF COMPLAINT: The patient was brought to the emergency room with shortness of breath and failure to thrive, and she missed dialysis. HISTORY OF PRESENT ILLNESS: Karina Blackmon is a 68-year-old old female with past medical history of end-stage renal disease, on hemodialysis secondary to autosomal dominant polycystic kidney disease, history of end-stage chronic obstructive pulmonary disease (COPD), diastolic congestive heart failure, multiple admissions to the hospital with the COPD exacerbations and congestive heart failure (CHF), chronic failure to thrive, weak and cachectic. She was discharged home on . She did not come for dialysis on Tuesday, which is a regular dialysis day. She missed her dialysis on Tuesday as well. Family members saw the patient was very weak and lethargic, and she was short of breath, but she was refusing to come for dialysis, so they brought her to the emergency room. She was admitted under the hospitalist service. Nephrology service was called for further help in the management of end-stage renal disease and possible fluid overload. The patient needed my immediate attention. I emergently saw the patient in the evening at the bedside. The patient was visibly short of breath, but she was refusing dialysis. I convinced the patient to have the dialysis done for improvement of her symptoms. PAST MEDICAL HISTORY: 1. End-stage renal disease, on hemodialysis. 2. Autosomal-dominant polycystic kidney disease. 3. Chronic diastolic congestive heart failure. 4. End-stage COPD, chronically oxygen dependent. 5. Hypothyroidism. PAST SURGICAL HISTORY: Left arm arteriovenous (AV) fistula creation. ALLERGIES: The patient is allergic to CODEINE and LISINOPRIL. FAMILY HISTORY: Positive family history of end-stage renal disease secondary to polycystic kidney disease. SOCIAL HISTORY: The patient lives at home. She refuses to the fdc. She is an active smoker. She did not denies any illicit drug abuse. REVIEW OF SYSTEMS: CONSTITUTIONAL: Patient reports feeling weak and tired. EYES: She denies any blurry vision or double vision. ENT: She denies any dysphagia or odynophagia. CARDIOVASCULAR: She denies any chest pain or palpitations. RESPIRATORY: She reports shortness of breath. GASTROINTESTINAL: She denies any nausea, vomiting. GENITOURINARY: She reports decreased urine output. MUSCULOSKELETAL: She denies any muscle aches and pains. SKIN: She denies any rashes or ulcers. ENDOCRINE: She reports history of hypothyroidism. HEMATOLOGY/ONCOLOGY: She denies any easy bleeding or bruising. All other review of systems is negative. PHYSICAL EXAMINATION GENERAL: The patient is awake, alert, oriented times three, moderate to severe respiratory distress, lying in bed wearing nasal cannula. VITAL SIGNS: Temperature is 97.1 degrees Fahrenheit, blood pressure 160/82, pulse 70, respiratory rate of 19, saturating 95% to 2 liters on nasal cannula. HEAD AND NECK: Patient is weak, cachectic, chronically malnourished, bitemporal wasting. Mucous membranes are moist. Neck is supple. There is an elevated jugular venous distention (JVD). CARDIOVASCULAR: S1, S2, regular rate. No edema of the bilateral lower extremities. RESPIRATORY: Inspiratory crackles bilaterally at the bases. Decreased air entry bilaterally because of COPD. ABDOMEN: Soft. Polycystic liver and polycystic kidney is palpable. MUSCULOSKELETAL: No clubbing or cyanosis. Patient is skin and bone. Chronic muscle wasting is noted. CENTRAL NERVOUS SYSTEM: No focal deficit. Power is 5/5 in bilateral upper extremities. PSYCHIATRIC: Patient has a depressed mood. LABORATORY REVIEW: CBC showed WBC 8.8, hemoglobin 9.9, platelets are 187. BMP showed sodium 144, potassium 4.7, chloride 107, bicarbonate 24, BUN 89, creatinine is 5.8. IMAGING STUDIES: A chest x-ray was done, which showed streaky infiltrate in the right lung base. CURRENT INPATIENT MEDICATIONS: The patient's medications were all reviewed by me. She is currently on: - DuoNeb - amlodipine 10 mg daily - aspirin 81 mg daily - Mycelex 10 mg by mouth for 5 days - heparin subcutaneous - levothyroxine 137 mcg by mouth daily - Ativan 1 mg by mouth three times a day - losartan 100 mg by mouth daily - omeprazole 20 mg daily - pancreatic enzymes - Velphoro 500 mg with meals - B complex ASSESSMENT: A 68-year-old female with end-stage renal disease, end-stage chronic obstructive pulmonary disease (COPD),diastolic congestive heart failure. Missed two sessions of hemodialysis. Right now with respiratory distress. PLAN: 1. Shortness of breath secondary to COPD exacerbation and fluid overload. The patient needs emergent dialysis. She is fluid overloaded. I convinced her to do hemodialysis tonight. Two hours of dialysis will be done, and I will try to remove at least 1-1.5 mL of fluid as tolerated by her blood pressure. 2. End-stage renal disease, on hemodialysis. The patient's regular dialysis days are Tuesday, Tuesday, Tuesday. She missed two sessions of dialysis after discharge from the hospital. The patient is depressed because of her chronic disease. Looks like the patient is leaning more towards hospice. 3. Acute decompensated diastolic congestive heart failure. The patient is volume overloaded because of missing to dialysis sessions. She makes minimal amount of urine. Volume status will be optimized with dialysis. 4. End-stage COPD. The patient is dialysis dependent. She has been started on steroids. Continue the DuoNeb. Patient is a chronic active smoker despite COPD. DISPOSITION: The patient has failure to thrive, weak and cachectic, end-stage COPD, end-stage renal disease, large polycystic kidney, and polycystic liver. The patient needs palliative care. I have discussed the idea of hospice with her, but she is refusing to go to hospice. I will discuss that again with her tomorrow once she is hemodynamically more stable after dialysis. Thank you for involving us in the care of this patient. We shall be happy to follow the patient along with you tomorrow morning.
[2019-06-27] MEDS: methylPREDNISolone INJ 40 MG/1 ML VIAL (J2920) IV SCH ×3 (00:58→23:34)
[2019-06-27 06:00] VITALS: BP 136/84
[2019-06-27] MEDS: LEVOTHYROXINE 137MCG TABLET (0.137MG) PO SCH (06:11)
[2019-06-27] MEDS: CLOTRIMAZOLE 10 MG TROCHE PO SCH ×7 (06:11→22:01)
[2019-06-27] MEDS: SUCROFERRIC OXYHYDROXIDE 500MG CHEW TAB (VELPHORO) PO SCH ×4 (07:51→18:40)
[2019-06-27] MEDS: HEPARIN SOD (PORCINE) 5000 UNITS/ML VIAL SC SCH ×3 (07:51→21:00)
[2019-06-27] MEDS: NEPHRO-VIT TAB (NEPHROCAPS) PO SCH (07:52)
[2019-06-27] MEDS: CREON-24 CAPSULE PO SCH ×4 (07:52→18:40)
[2019-06-27] MEDS: OMEPRAZOLE 20 MG CAP PO SCH (07:52)
[2019-06-27] MEDS: amLODIPine 10 MG TAB PO SCH (07:52)
[2019-06-27] MEDS: LOSARTAN 50 MG TAB PO SCH (07:52)
[2019-06-27] MEDS: LORazepam 1 MG TAB PO SCH ×3 (07:53→22:01)
--- NOTE | 2019-06-27 07:55 | IPN ---
DATE OF VISIT: 06/26/2019 Mrs. Blackmon is seen this morning on her bedside. She remains very frail and unable to even move. Nursing staff is trying to get her in the bed from commode. She was unable to even lift her legs up. She was last dialyzed while here in the hospital during her prior hospitalization and never came back for dialysis since then. She was admitted yesterday with shortness of breath and required emergency dialysis due to volume overload. Over last couple of years she has progressively deteriorated and now reached the point that she cannot even come to outpatient dialysis clinic. The only time she gets dialyzed is when she is inpatient. PHYSICAL EXAMINATION: Temperature is 98.2 degrees Fahrenheit, heart rate 72 per minute and respiratory rate 17 per minute. Blood pressure 160/77 mmHg and oxygen saturation 96% on 2 liters of oxygen. Head is atraumatic. She is chronically ill looking and very emancipated. She has no oral thrush or ulcers. Heart sounds are regular and without a pericardial friction rub. Lungs with diminished breath sounds. Abdomen is soft with large polycystic kidneys and bowel sounds present. Extremities without any cyanosis or clubbing. She has significant muscle wasting all over her body. Neurologically she is awake and able to answer questions. She is very weak and not able to even independently sit up. Her labs from last evening are reviewed. Blood culture has been negative so far. PROBLEMS: 1. Shortness of breath most likely related to hypervolemia and noncompliance with dialysis treatment. The patient was dialyzed last evening and 1200 mL fluid was removed. Her respiratory status has improved significantly. 2. End-stage renal disease. The patient was dialyzed last night and her last dialysis was during her prior admission. She has been admitted multiple times during last several months. Unfortunately her condition has deteriorated significantly and she is not able to care for herself at all. Now she is not able to even come to outpatient dialysis clinic due to generalized weakness and inability to get up. 3. Failure to thrive. I have discussed with the patient about her deteriorating condition and recommended hospice care as she has been unable to have any quality of life. I feel that hospice is appropriate. A hospice consult is being requested. 4. Anemia. Her anemia is mild and will be watched closely. Once a final decision is made for hospice then no further labs will be needed. 5. Protein calorie malnutrition. This is chronic and progressively worsened due to her poor oral intake and frail condition. At present just supportive care will be recommended.
[2019-06-27] MEDS: SYMBICORT 160/4.5MCG INHALER 6GM INH SCH ×2 (08:03→19:45)
[2019-06-27 08:29] LABS: HEMATOCRIT 30.7 % (36.0-47.0); HEMOGLOBIN 9.3 g/dl (12.0-15.5); MEAN CORPUSCULAR HGB CONC 30.3 g/dl (32.0-36.5); MEAN CORPUSCULAR VOLUME 92.5 fl (80.0-96.0); PLATELET COUNT, AUTOMATED 198 10^3/uL (150-450); RED BLOOD COUNT 3.32 10^6/uL (4.00-5.40); WHITE BLOOD COUNT 6.4 10^3/uL (4.0-10.0)
[2019-06-27 08:54] LABS: ALBUMIN 3.1 GM/DL (3.2-5.2); BILIRUBIN,TOTAL 0.6 MG/DL (0.2-1.0); CALCIUM LEVEL 7.2 MG/DL (8.8-10.2); CREATININE FOR GFR 4.65 MG/DL (0.55-1.30); GLOMERULAR FILTRATION RATE 9.9 (>39); POTASSIUM SERUM 4.1 MEQ/L (3.5-5.1); TOTAL PROTEIN 5.9 GM/DL (6.4-8.2)
[2019-06-27 14:00] VITALS: BP 160/74
--- NOTE | 2019-06-27 14:57 | IPNPDOC ---
Text Note Date of Service The patient was seen on 06/27/19. NOTE Subjective: Patient seen and examined at bedside. Objective: General: NAD, grossly cachectic, emaciated HEENT: NC/AT Lungs: CTA B/L Heart: +S1S2, RRR Abd: soft, NT, +BS Ext: cachectic A/P: 68f with ESRD on HD, copd, hypothyroid, HFpEF, recent admission for pneumonia, who is brought back due to lethargy, inability to eat, and sob after missing two dialysis sessions. She has severe oral thrush for which she was prescribed nystatin solution without much relief. #failure to thrive - underweight - hospice c/s pending #severe protein calorie malnutrition #ESRD has been too lethargic to go to hd nephrology consulted - HD pending c/s with hospice/palliative to determine goals of care #Thrush - clotrimazole #copd - continue steroids - continue duonebs - continue symbicort #HFpEF Dispo: pt is cachectic and frail, hospice c/s pending. VS,Fishbone, I+O VS, Fishbone, I+O Laboratory Tests 06/27/19 08:12 Red Blood Count 3.32 L, Mean Corpuscular Volume 92.5, Mean Corpuscular Hemoglobin 28.0, Mean Corpuscular Hemoglobin Concent 30.3 L, Red Cell Distribution Width 19.8 H, Calcium Level 7.2 L, Aspartate Amino Transf (AST/S GOT) 18, Alanine Aminotransferase (ALT/SGPT) 15, Alkaline Phosphatase 92, Total Bilirubin 0.6, Total Protein 5.9 L, Albumin 3.1 L Vital Signs Date Time Temp Pulse Resp B/P (MAP) Pulse Ox O2 Delivery O2 Flow Rate FiO2 06/27/19 14:00 97.9 88 22 160/74 (102) 99 2.0 06/25/19 12:30 Nasal Cannula I&O- Last 24 Hours up to 6 AM 06/27/19 06:00 Intake Total 630 ml Output Total 0 ml Balance 630 ml KELSI MEEK MD Jun 27, 2019 14:57
[2019-06-27 22:00] VITALS: BP 140/72
[2019-06-28] MEDS: LEVOTHYROXINE 137MCG TABLET (0.137MG) PO SCH (05:06)
[2019-06-28] MEDS: CLOTRIMAZOLE 10 MG TROCHE PO SCH ×5 (05:06→20:53)
[2019-06-28 06:00] VITALS: BP 147/70
[2019-06-28] MEDS: SUCROFERRIC OXYHYDROXIDE 500MG CHEW TAB (VELPHORO) PO SCH ×3 (08:00→16:44)
[2019-06-28] MEDS: SYMBICORT 160/4.5MCG INHALER 6GM INH SCH ×2 (08:05→20:36)
[2019-06-28] MEDS: HEPARIN SOD (PORCINE) 5000 UNITS/ML VIAL SC SCH ×2 (09:00→20:53)
[2019-06-28] MEDS: ASPIRIN 81 MG ENTERIC TAB PO SCH (09:28)
[2019-06-28] MEDS: LORazepam 1 MG TAB PO SCH ×3 (09:28→20:52)
[2019-06-28] MEDS: NEPHRO-VIT TAB (NEPHROCAPS) PO SCH (09:28)
[2019-06-28] MEDS: OMEPRAZOLE 20 MG CAP PO SCH (09:28)
[2019-06-28] MEDS: LOSARTAN 50 MG TAB PO SCH (09:28)
[2019-06-28] MEDS: amLODIPine 10 MG TAB PO SCH (09:29)
[2019-06-28] MEDS: CREON-24 CAPSULE PO SCH ×3 (09:29→16:44)
--- NOTE | 2019-06-28 11:36 | IPNPDOC ---
Text Note Date of Service The patient was seen on 06/28/19. NOTE Subjective: Patient seen and examined at bedside. Objective: General: NAD, grossly cachectic, emaciated HEENT: NC/AT Lungs: CTA B/L Heart: +S1S2, RRR Abd: soft, NT, +BS Ext: cachectic A/P: 68f with ESRD on HD, copd, hypothyroid, HFpEF, recent admission for pneumonia, who is brought back due to lethargy, inability to eat, and sob after missing two dialysis sessions. She has severe oral thrush for which she was prescribed nystatin solution without much relief. #failure to thrive #severe protein calorie malnutrition #ESRD has been too lethargic to go to hd from home nephrology consulted - one session in hospital - further HD pending c/s with hospice/palliative to determine goals of care #Thrush - clotrimazole #copd - continue steroids - continue duonebs - continue symbicort #HFpEF - grossly compensated Dispo: patient still adamant about returning home; family (son/daughter) feel th ey will not be able to provide care for her at home, even as FIGURE [employer]; to further discuss dispo with hospice/palliative care/PFS/family. VS,Fishbone, I+O VS, Fishbone, I+O Vital Signs Date Time Temp Pulse Resp B/P (MAP) Pulse Ox O2 Delivery O2 Flow Rate FiO2 06/28/19 09:29 72 147/70 06/28/19 09:00 2.0 06/28/19 06:00 97.3 19 92 06/25/19 12:30 Nasal Cannula I&O- Last 24 Hours up to 6 AM 06/28/19 05:59 Intake Total 660 ml Output Total 0 ml Balance 660 ml KELSI MEEK MD Jun 28, 2019 11:36
[2019-06-28] MEDS: methylPREDNISolone INJ 40 MG/1 ML VIAL (J2920) IV SCH ×2 (12:30→23:57)
[2019-06-28 14:00] VITALS: BP 155/92
--- NOTE | 2019-06-28 14:10 | IPN ---
DATE OF SERVICE: 06/27/2019 SUBJECTIVE: The patient was seen and examined at the bedside today morning. The patient is more awake today. Yesterday palliative care and hospice consult was requested. The patient is pending evaluation by hospice. However, the patient is adamant that she wants to go back home. Today is the patient's regular day of dialysis. However, we are awaiting the recommendations from the hospice service. OBJECTIVE: Vital Signs: Temperature is 97 degrees Fahrenheit, blood pressure 136/84, pulse is 69, respiratory rate of 18, saturating 97% on 2 liters by nasal cannula. Intake and Output: There is no urine output recorded, weight in the bed scale is not available. PHYSICAL EXAMINATION: General: The patient is awake, alert, oriented times two, weak and cachectic, chronically malnourished, laying in bed. Head and Neck Exam: The patient has bitemporal wasting. Mucous membranes are moist. Neck is supple. Cardiovascular: S1 and S2, regular rate. No edema of the bilateral lower extremities. Respiratory: Decreased breath sounds at the bases bilaterally because of her chronic COPD. Abdomen: Soft. Large polycystic kidneys and large polycystic liver is palpable. Musculoskeletal: The patient is chronically cachectic with severe muscle wasting. No edema. SLOTTER OPERATOR: The patient is oriented times two laying in bed, moves extremities and follows commands. LAB REVIEW: CBC showed a WBC of 6.4, hemoglobin 9.3, platelets of 198. BMP showed sodium 140, potassium 4.1, chloride 104, bicarb 24, BUN 72, creatinine 4.6, calcium 7.2, and albumin is 3.1. CURRENT INPATIENT MEDICATIONS: The patient's medications were all reviewed by me. There is no change in the medications today as compared with yesterday. ASSESSMENT/PLAN: 1. End-stage renal disease on hemodialysis. The patient is severely cachectic, malnourished with failure to thrive, with chronic protein calorie malnutrition, unable to come for dialysis now. She was emergently dialyzed on admission because of shortness of breath. However, given the patient's irreversible conditions, including large polycystic liver, polycystic kidneys, end-stage renal disease, chronic failure to thrive, and inability to ambulate, dialysis is on hold. The patient is pending evaluation by hospice. 2. Diastolic congestive heart failure. Volume status is optimal. 1 liter of fluid was removed on admission. Further dialysis is on hold pending evaluation by palliative care team. 3. Failure to thrive and protein calorie malnutrition. The patient's family members do not want to take her back at her house because they are unable to take care of her. The patient is adamant to go back home. She refuses to go to longterm as well. Hospice evaluation is pending. I would hold off on further dialysis at this time until the patient is evaluated by hospice. I believe current care is futile and the patient has chronic irreversible medical problems.
[2019-06-28] MEDS: IPRATROPIUM 0.5MG/ALBUTEROL 2.5MG INH SOL UD 3ML (DUONEB)(J7620) NEB PRN (14:59)
[2019-06-28 22:00] VITALS: BP 116/67
[2019-06-29] MEDS: LEVOTHYROXINE 137MCG TABLET (0.137MG) PO SCH (05:33)
[2019-06-29] MEDS: CLOTRIMAZOLE 10 MG TROCHE PO SCH ×5 (05:33→20:59)
[2019-06-29 06:00] VITALS: BP 186/76
[2019-06-29] MEDS: SYMBICORT 160/4.5MCG INHALER 6GM INH SCH ×2 (07:34→20:00)
[2019-06-29] MEDS: HEPARIN SOD (PORCINE) 5000 UNITS/ML VIAL SC SCH ×3 (09:00→20:59)
[2019-06-29] MEDS: SUCROFERRIC OXYHYDROXIDE 500MG CHEW TAB (VELPHORO) PO SCH ×3 (09:04→17:51)
[2019-06-29] MEDS: CREON-24 CAPSULE PO SCH ×3 (09:04→17:51)
[2019-06-29] MEDS: LORazepam 1 MG TAB PO SCH ×3 (09:04→20:59)
[2019-06-29] MEDS: OMEPRAZOLE 20 MG CAP PO SCH (09:05)
[2019-06-29] MEDS: amLODIPine 10 MG TAB PO SCH (09:05)
[2019-06-29] MEDS: NEPHRO-VIT TAB (NEPHROCAPS) PO SCH (09:05)
[2019-06-29] MEDS: LOSARTAN 50 MG TAB PO SCH (09:05)
[2019-06-29] MEDS: methylPREDNISolone INJ 40 MG/1 ML VIAL (J2920) IV SCH (11:46)
--- NOTE | 2019-06-29 12:19 | IPNPDOC ---
Text Note Date of Service The patient was seen on 06/29/19. NOTE Subjective: Patient seen and examined at bedside. No new medical complaints. Still emphasizing her desire to return home, and fear of dying. Objective: General: NAD, grossly cachectic, emaciated, sitting at edge of bed eating breakfast HEENT: NC/AT Lungs: CTA B/L Heart: +S1S2, RRR Abd: soft, NT, +BS Ext: cachectic A/P: 68f with ESRD on HD, copd, hypothyroid, HFpEF, recent admission for pneumonia, who is brought back due to lethargy, inability to eat, and sob after missing two dialysis sessions. She has severe oral thrush for which she was prescribed nystatin solution without much relief. #failure to thrive #severe protein calorie malnutrition #ESRD - has been too lethargic to go to hd from home - nephrology consulted - one session on admission - further HD pending c/s with hospice/palliative to determine goals of care #Thrush - clotrimazole #copd - continue steroids - continue duonebs - continue symbicort #HFpEF - grossly compensated Dispo: hospice c/s pending VS,Fishbone, I+O VS, Fishbone, I+O Vital Signs Date Time Temp Pulse Resp B/P (MAP) Pulse Ox O2 Delivery O2 Flow Rate FiO2 06/29/19 09:05 142/89 06/29/19 09:05 107 06/29/19 09:00 2.0 06/29/19 06:00 97.5 18 100 06/25/19 12:30 Nasal Cannula I&O- Last 24 Hours up to 6 AM 06/29/19 06:00 Intake Total 640 ml Balance 640 ml KELSI MEEK MD Jun 29, 2019 12:19
[2019-06-29] MEDS: IPRATROPIUM 0.5MG/ALBUTEROL 2.5MG INH SOL UD 3ML (DUONEB)(J7620) NEB PRN (13:07)
--- NOTE | 2019-06-29 19:32 | IPN ---
DATE: 06/29/2019 SUBJECTIVE: The patient was seen and examined at the bedside today morning. The patient is laying in the bed. She is weak and cachectic. She is adamant about going back home. She is unable to make any decision about hospice and palliative care. She is not even willing to go to halfway. The patient is too weak to come for dialysis as outpatient. Dialysis is on hold at this time. OBJECTIVE: VITAL SIGNS: Temperature is 97.2 degrees Fahrenheit, blood pressure 155/92, pulse is 92, respiratory of 17, saturating 99% on two liters via nasal cannula. INTAKE AND OUTPUT: There is no urine output recorded. Weight in the bed scale is not available. PHYSICAL EXAMINATION: GENERAL: The patient is weak, cachectic, malnourished, lethargic, laying in bed, mild respiratory distress. HEAD AND NECK: Bitemporal wasting. Mucous membranes moist. Neck is supple. Mildly elevated jugular venous distention (JVD). CARDIOVASCULAR: S1, S2, regular rate. No edema of the bilateral lower extremities. RESPIRATORY: Decreased breath sounds at the bases bilaterally with inspiratory crackles bilaterally at the bases. The patient is wearing a nasal cannula. ABDOMEN: The patient has large polycystic kidney and polycystic liver which is palpable. MUSCULOSKELETAL: The patient is chronically cachectic with severe muscle wasting. She is just skin and bones. CENTRAL NERVOUS SYSTEM (TANKERMAN): The patient is oriented times two, laying in bed, too weak to even get up from the bed. PSYCHIATRIC: The patient is depressed and tearful and asking time and again to go back home. LABORATORY REVIEW: CBC is from yesterday and BMP is also from yesterday. CURRENT INPATIENT MEDICATIONS: The patient's medications were all reviewed. There is no change in the medications today as compared with yesterday. ASSESSMENT AND PLAN: 1. End-stage renal disease, on hemodialysis. The patient has been admitted multiple times because of congestive heart failure (CHF) exacerbation and chronic obstructive pulmonary disease (COPD) exacerbation. She is even unable to come for dialysis now because of severe weakness. Her family is not able to take care of her at home. She is even unable to get up from the bed. She is refusing to go to hospice and she is not even willing to go to halfway. She is adamant about going back home. I believe, at this time, all the care is futile. Dialysis is not going to help with her quality of life. Dialysis is on hold at this time. 2. Chronic diastolic congestive heart failure. The patient's dialysis is on hold pending final decision by the family members. The patient is not receptive about the idea of hospice. 3. Chronic protein calorie malnutrition and failure to thrive. The patient is just skin and bones. She has multiple and recurrent admissions to the hospital. She cannot perform activities of daily life at home. Her family is not able to take care of her at home and they are not even ready to take her back at home. Further dialysis is on hold because of her chronic irreversible medical conditions and problems. The patient needs to be comfort measures only. I believe regular hemodialysis is just prolonging the misery of this patient.
[2019-06-29 22:00] VITALS: BP 139/71
[2019-06-30] MEDS: CLOTRIMAZOLE 10 MG TROCHE PO SCH ×5 (05:45→21:48)
[2019-06-30] MEDS: LEVOTHYROXINE 137MCG TABLET (0.137MG) PO SCH (05:45)
[2019-06-30 06:00] VITALS: BP 124/80
[2019-06-30] MEDS: SYMBICORT 160/4.5MCG INHALER 6GM INH SCH ×2 (07:27→20:13)
[2019-06-30] MEDS: HEPARIN SOD (PORCINE) 5000 UNITS/ML VIAL SC SCH ×2 (09:00→21:00)
[2019-06-30] MEDS: CREON-24 CAPSULE PO SCH ×3 (09:18→18:00)
[2019-06-30] MEDS: LORazepam 1 MG TAB PO SCH ×3 (09:18→21:48)
[2019-06-30] MEDS: NEPHRO-VIT TAB (NEPHROCAPS) PO SCH (09:18)
[2019-06-30] MEDS: LOSARTAN 50 MG TAB PO SCH (09:19)
[2019-06-30] MEDS: amLODIPine 10 MG TAB PO SCH (09:19)
[2019-06-30] MEDS: predniSONE 20 MG TAB PO SCH (09:20)
[2019-06-30] MEDS: ASPIRIN 81 MG ENTERIC TAB PO SCH (09:20)
[2019-06-30] MEDS: OMEPRAZOLE 20 MG CAP PO SCH (09:20)
[2019-06-30] MEDS: SUCROFERRIC OXYHYDROXIDE 500MG CHEW TAB (VELPHORO) PO SCH ×3 (09:22→18:00)
[2019-06-30 09:26] LABS: HEMATOCRIT 29.6 % (36.0-47.0); HEMOGLOBIN 8.9 g/dl (12.0-15.5); MEAN CORPUSCULAR HEMOGLOBIN 28.5 pg (27.0-33.0); MEAN CORPUSCULAR HGB CONC 30.1 g/dl (32.0-36.5); MEAN CORPUSCULAR VOLUME 94.9 fl (80.0-96.0); PLATELET COUNT, AUTOMATED 205 10^3/uL (150-450); RED BLOOD COUNT 3.12 10^6/uL (4.00-5.40); WHITE BLOOD COUNT 14.4 10^3/uL (4.0-10.0)
[2019-06-30 09:46] LABS: CALCIUM LEVEL 6.9 MG/DL (8.8-10.2); CREATININE FOR GFR 5.95 MG/DL (0.55-1.30); GLOMERULAR FILTRATION RATE 7.5 (>39); PHOSPHORUS LEVEL 3.4 MG/DL (2.5-4.9)
--- NOTE | 2019-06-30 10:01 | IPN ---
DATE: 06/29/2019 SUBJECTIVE: The patient was seen and examined at the bedside this morning. Her brother was also present at the bedside. The patient is depressed today. She is hemodynamically stable last hemodialysis was on June 25, 2019 OBJECTIVE: Vital Signs: Temperature is 97.5 degrees Fahrenheit, blood pressure 142/89, pulse is 107, respiratory of 80, saturating 100% on 2 liters via nasal cannula. Intake and output: There is no urine output recorded. Weight in the bed scale is not available. PHYSICAL EXAMINATION: GENERAL: The patient is awake, alert, oriented times two, laying in bed, weak and cachectic. HEAD AND NECK EXAM: The patient has bitemporal wasting, emaciated facies. Neck is supple. There is no jugular venous distention (JVD). CARDIOVASCULAR: S1, S2, regular rate. No edema of the bilateral lower extremities. RESPIRATORY: Decreased breath sounds bilaterally at the basis because of end-stage Chronic obstructive pulmonary disease (COPD). She is wearing nasal cannula. ABDOMEN: Soft. Large polycystic kidney and large polycystic liver is palpable. MUSCULOSKELETAL: Chronic muscle wasting and cachexia CENTRAL NERVOUS SYSTEM (DIRECTOR OF VIDEO ANALYTICS): The patient is oriented times two laying in bed PSYCH: The patient has a depressed mood and she constantly is asking to go back home. LAB REVIEW: CBCs from 06/27/2019. BMP was also done on 06/27/2019. CURRENT INPATIENT MEDICATIONS: The patient's medications were all reviewed by me. There is no change in the medications today as compared with yesterday. ASSESSMENT/PLAN: 1. End-stage renal disease on hemodialysis. The patient's dialysis has been stopped because of chronic failure to thrive. The patient is pending possible transfer to hospice versus home with hospice. Further social work and palliative care is pending. 2. Chronic diastolic congestive heart failure: The patient got 1 liter of fluid removed on June 25, 2019. Further dialysis on hold. 3. Chronic failure to thrive and protein calorie malnutrition. The patient is bedridden. She is too weak to even get up from the bed. She is unable to be transferred from home for dialysis. Her family cannot take care of her at home. She refused to go to care home many times in the past and she is even refusing to go to hospice now. At this time doing dialysis on this patient is of futile care because of the patient's chronic irreversible medical condition. Further dialysis is on hold.
[2019-06-30 10:33] VITALS: BP 146/65
[2019-06-30 13:58] VITALS: BP 100/62
[2019-06-30] MEDS: IPRATROPIUM 0.5MG/ALBUTEROL 2.5MG INH SOL UD 3ML (DUONEB)(J7620) NEB PRN (14:48)
[2019-06-30 20:17] VITALS: O2SAT 96
[2019-06-30 22:00] VITALS: BP 122/78
[2019-07-01] MEDS: LEVOTHYROXINE 137MCG TABLET (0.137MG) PO SCH (05:44)
[2019-07-01] MEDS: CLOTRIMAZOLE 10 MG TROCHE PO SCH ×5 (05:44→20:53)
[2019-07-01 06:00] VITALS: BP 122/79
[2019-07-01] MEDS: SYMBICORT 160/4.5MCG INHALER 6GM INH SCH ×2 (08:05→19:47)
[2019-07-01] MEDS: HEPARIN SOD (PORCINE) 5000 UNITS/ML VIAL SC SCH ×2 (09:00→21:00)
[2019-07-01] MEDS: CREON-24 CAPSULE PO SCH ×3 (09:01→18:14)
[2019-07-01] MEDS: NEPHRO-VIT TAB (NEPHROCAPS) PO SCH (09:01)
[2019-07-01] MEDS: LORazepam 1 MG TAB PO SCH ×3 (09:01→20:53)
[2019-07-01] MEDS: ASPIRIN 81 MG ENTERIC TAB PO SCH (09:01)
[2019-07-01] MEDS: OMEPRAZOLE 20 MG CAP PO SCH (09:01)
[2019-07-01] MEDS: predniSONE 20 MG TAB PO SCH (09:02)
[2019-07-01] MEDS: SUCROFERRIC OXYHYDROXIDE 500MG CHEW TAB (VELPHORO) PO SCH ×3 (09:02→18:14)
[2019-07-01] MEDS: LOSARTAN 50 MG TAB PO SCH (09:02)
[2019-07-01] MEDS: amLODIPine 10 MG TAB PO SCH (09:03)
--- NOTE | 2019-07-01 10:19 | IPNPDOC ---
Text Note Date of Service The patient was seen on 06/30/19. NOTE Subjective: Patient seen and examined at bedside. No new medical complaints. Objective: General: NAD, grossly cachectic, emaciated, sitting at edge of bed eating breakfast HEENT: NC/AT Lungs: CTA B/L Heart: +S1S2, RRR Abd: soft, NT, +BS Ext: cachectic A/P: 68f with ESRD on HD, copd, hypothyroid, HFpEF, recent admission for pneumonia, who is brought back due to lethargy, inability to eat, and sob after missing two dialysis sessions. She has severe oral thrush for which she was prescribed nystatin solution without much relief. #failure to thrive #severe protein calorie malnutrition #ESRD - has been too lethargic to go to hd from home - nephrology consulted - one session on admission - further HD pending c/s with hospice/palliative to determine goals of care #Thrush - clotrimazole #copd - continue steroids - continue duonebs - continue symbicort #HFpEF - grossly compensated Dispo: hospice c/s pending VS,Fishbone, I+O VS, Fishbone, I+O Vital Signs Date Time Temp Pulse Resp B/P (MAP) Pulse Ox O2 Delivery O2 Flow Rate FiO2 07/01/19 09:03 79 129/90 07/01/19 06:00 98.9 18 100 2.0 06/30/19 20:17 Nasal Cannula I&O- Last 24 Hours up to 6 AM 07/01/19 06:00 Intake Total 600 ml Output Total 150 ml Balance 450 ml KELSI MEEK MD Jul 01, 2019 10:19
--- NOTE | 2019-07-01 10:20 | IPNPDOC ---
Text Note Date of Service The patient was seen on 07/01/19. NOTE Subjective: Patient seen and examined at bedside. No new medical complaints. Objective: General: NAD, grossly cachectic, emaciated, sitting at edge of bed eating breakfast HEENT: NC/AT Lungs: CTA B/L Heart: +S1S2, RRR Abd: soft, NT, +BS Ext: cachectic A/P: 68f with ESRD on HD, copd, hypothyroid, HFpEF, recent admission for pneumonia, who is brought back due to lethargy, inability to eat, and sob after missing two dialysis sessions. She has severe oral thrush for which she was prescribed nystatin solution without much relief. #failure to thrive #severe protein calorie malnutrition #ESRD - has been too lethargic to go to hd from home - nephrology consulted - one session on admission #Thrush - clotrimazole #COPD - continue steroids - continue duonebs - continue symbicort #HFpEF - grossly compensated Dispo: hospice c/s pending, patient requires placement in hospice facility; she wishes to return home, family unable to provide care VS,Saul, I+O VS, Saul, I+O Vital Signs Date Time Temp Pulse Resp B/P (MAP) Pulse Ox O2 Delivery O2 Flow Rate FiO2 07/01/19 09:03 79 129/90 07/01/19 06:00 98.9 18 100 2.0 06/30/19 20:17 Nasal Cannula I&O- Last 24 Hours up to 6 AM 07/01/19 06:00 Intake Total 600 ml Output Total 150 ml Balance 450 ml KELSI MEEK MD Jul 01, 2019 10:20
--- NOTE | 2019-07-01 10:25 | IPN ---
DATE OF VISIT: 06/30/2019 Mrs. Blackmon is seen this morning on her bedside. She is very frail and emaciated. She has end-stage renal disease secondary to polycystic kidney disease. She has become very weak and unable to even move. Her dialysis has been stopped due to complete failure to thrive. Her family has declined to take her home due to patient's inability to do anything and family's inability to provide 24-hour care. Patient has declined hospice care. In any event, she has a DO NOT RESUSCITATE status and her dialysis has been terminated due to failure to thrive and no improvement in her quality of life with dialysis. On physical exam, she is emaciated and very frail but not in any acute distress. Temperature is 97.7 degrees Fahrenheit, heart rate 94 per minute, and respiratory rate 20 per minute. Blood pressure 124/80 mmHg and oxygen saturation 99%. Her head is atraumatic. Neck is supple and jugular venous distention (JVD) is mildly elevated. Heart sounds are regular and lungs with diminished breath sounds. Abdomen has large polycystic kidneys, which are nontender. Bowel sounds are present. Extremities without any cyanosis or clubbing. Neurologically, patient is awake and able to answer questions. Today's labs show WBC count 14.4, hemoglobin 8.9, and hematocrit 29.6. Sodium 145, potassium 4.0, CO2 27, BUN 112, and creatinine 5.95. Calcium 6.9 and phosphorus 3.4. Albumin 3.0. PROBLEMS: 1. End-stage renal disease. Patient is not felt to be a suitable candidate for dialysis due to complete failure to thrive. Her dialysis has been stopped. I have discussed with the patient and explained to her. She is not likely to improve with dialysis treatments and her long-term prognosis remains very poor. She will be continued with comfort care. 2. Anemia. Her anemia is stable and no urgent intervention is indicated. 3. Hypertension. Blood pressure is very well controlled on current antihypertensive meds and she is receiving her chronic medications. 4. Failure to thrive. Patient has extreme weakness and complete failure to thrive. She cannot even move in the bed by herself. Due to her extremely poor quantity of life, we have decided to stop dialysis. Her family has declined to take her home due to need for 24-hour care. Patient unfortunately has declined hospice care.
[2019-07-01 14:00] VITALS: BP 152/86
[2019-07-01] MEDS: IPRATROPIUM 0.5MG/ALBUTEROL 2.5MG INH SOL UD 3ML (DUONEB)(J7620) NEB PRN (19:47)
[2019-07-01] MEDS ORDERED: ACETAMINOPHEN 500 MG TAB PO ONE (21:45)
[2019-07-01 22:00] VITALS: BP 150/86
[2019-07-02] MEDS: LEVOTHYROXINE 137MCG TABLET (0.137MG) PO SCH ×2 (05:39→11:44)
[2019-07-02] MEDS: CLOTRIMAZOLE 10 MG TROCHE PO SCH ×5 (05:39→21:05)
[2019-07-02 06:00] VITALS: BP 142/82
[2019-07-02] MEDS: SYMBICORT 160/4.5MCG INHALER 6GM INH SCH ×2 (08:14→20:01)
[2019-07-02] MEDS: SUCROFERRIC OXYHYDROXIDE 500MG CHEW TAB (VELPHORO) PO SCH ×3 (08:52→17:47)
[2019-07-02] MEDS: OMEPRAZOLE 20 MG CAP PO SCH (08:53)
[2019-07-02] MEDS: CREON-24 CAPSULE PO SCH ×3 (08:53→17:47)
[2019-07-02] MEDS: LORazepam 1 MG TAB PO SCH ×3 (08:53→21:05)
[2019-07-02] MEDS: amLODIPine 10 MG TAB PO SCH (08:53)
[2019-07-02] MEDS: predniSONE 20 MG TAB PO SCH (08:53)
[2019-07-02] MEDS: LOSARTAN 50 MG TAB PO SCH (08:53)
[2019-07-02] MEDS: NEPHRO-VIT TAB (NEPHROCAPS) PO SCH (08:53)
[2019-07-02] MEDS: HEPARIN SOD (PORCINE) 5000 UNITS/ML VIAL SC SCH ×2 (08:54→20:58)
--- NOTE | 2019-07-02 12:03 | IPNPDOC ---
Text Note Date of Service The patient was seen on 07/02/19. NOTE Subjective: Patient seen and examined at bedside. No new medical complaints. Objective: General: NAD, grossly cachectic, emaciated, sitting at edge of bedt HEENT: NC/AT Lungs: CTA B/L Heart: +S1S2, RRR Abd: soft, NT, +BS Ext: cachectic A/P: 68f with ESRD on HD, copd, hypothyroid, HFpEF, recent admission for pneumonia, who is brought back due to lethargy, inability to eat, and sob after missing two dialysis sessions. She has severe oral thrush for which she was prescribed nystatin solution without much relief. #failure to thrive #severe protein calorie malnutrition #ESRD - has been too lethargic to go to hd from home - nephrology consulted - one session on admission #Thrush - clotrimazole #COPD - continue steroids - continue duonebs - continue symbicort #HFpEF - grossly compensated Dispo: hospice c/s pending, patient requires placement in hospice facility; she wishes to return home, family unable to provide care VS,Saul, I+O VS, Saul, I+O Vital Signs Date Time Temp Pulse Resp B/P (MAP) Pulse Ox O2 Delivery O2 Flow Rate FiO2 07/02/19 09:00 2.0 07/02/19 08:53 144/84 07/02/19 08:53 95 07/02/19 06:00 98.3 18 97 06/30/19 20:17 Nasal Cannula I&O- Last 24 Hours up to 6 AM 07/02/19 06:00 Intake Total 880 ml Output Total 150 ml Balance 730 ml KELSI MEEK MD Jul 02, 2019 12:03
[2019-07-02 14:00] VITALS: BP 134/74
[2019-07-02 22:00] VITALS: BP 158/77
[2019-07-03] MEDS: CLOTRIMAZOLE 10 MG TROCHE PO SCH ×5 (05:33→20:18)
[2019-07-03] MEDS: LEVOTHYROXINE 137MCG TABLET (0.137MG) PO SCH (05:34)
[2019-07-03 06:00] VITALS: BP 159/87
[2019-07-03] MEDS: SYMBICORT 160/4.5MCG INHALER 6GM INH SCH ×2 (08:00→19:42)
[2019-07-03] MEDS: LORazepam 1 MG TAB PO SCH ×3 (08:47→20:18)
[2019-07-03] MEDS: SUCROFERRIC OXYHYDROXIDE 500MG CHEW TAB (VELPHORO) PO SCH ×3 (08:47→17:03)
[2019-07-03] MEDS: amLODIPine 10 MG TAB PO SCH (08:47)
[2019-07-03] MEDS: ASPIRIN 81 MG ENTERIC TAB PO SCH (08:48)
[2019-07-03] MEDS: CREON-24 CAPSULE PO SCH ×3 (08:48→17:03)
[2019-07-03] MEDS: OMEPRAZOLE 20 MG CAP PO SCH (08:48)
[2019-07-03] MEDS: NEPHRO-VIT TAB (NEPHROCAPS) PO SCH (08:48)
[2019-07-03] MEDS: HEPARIN SOD (PORCINE) 5000 UNITS/ML VIAL SC SCH ×2 (08:48→20:18)
[2019-07-03] MEDS: LOSARTAN 50 MG TAB PO SCH (08:48)
[2019-07-03] MEDS: predniSONE 20 MG TAB PO SCH (08:48)
[2019-07-03 14:00] VITALS: BP 158/89
[2019-07-03] MEDS: IPRATROPIUM 0.5MG/ALBUTEROL 2.5MG INH SOL UD 3ML (DUONEB)(J7620) NEB PRN (15:42)
--- NOTE | 2019-07-03 21:25 | IPNPDOC ---
Text Note Date of Service The patient was seen on 07/03/19. NOTE Subjective: Patient seen and examined at bedside. No new medical complaints. Objective: General: NAD, grossly cachectic HEENT: NC/AT, PERRLA, EOMI Lungs: CTA B/L Heart: +S1S2, RRR Abd: soft, NT, +BS Ext: cachectic A/P: 68f with ESRD on HD, copd, hypothyroid, HFpEF, recent admission for pneumonia, who is brought back due to lethargy, inability to eat, and sob after missing two dialysis sessions. She has severe oral thrush for which she was prescribed nystatin solution without much relief. Prognosis guarded. #failure to thrive #severe protein calorie malnutrition Palliative care on board #ESRD - has been too lethargic to go to hd from home - nephrology consulted, recommended to stop dialysis due to failure to thrive #Thrush - clotrimazole #COPD - continue steroids - continue duonebs - continue symbicort #HFpEF - grossly compensated Dispo: hospice c/s pending VS,Radhae, I+O VS, Dariusbone, I+O Vital Signs Date Time Temp Pulse Resp B/P (MAP) Pulse Ox O2 Delivery O2 Flow Rate FiO2 07/03/19 14:00 97.6 95 19 158/89 (112) 98 2.0 06/30/19 20:17 Nasal Cannula I&O- Last 24 Hours up to 6 AM 07/03/19 05:59 Intake Total 1120 ml Balance 1120 ml JUAN DAVID MALIK DO Jul 03, 2019 21:20
[2019-07-03 22:00] VITALS: BP 139/86
[2019-07-03] MEDS ORDERED: LORazepam 1 MG TAB PO ONE (22:45)
[2019-07-03] MEDS ORDERED: MOM 30ML SUSPENSION UDC PO ONE (22:45)
[2019-07-04 06:00] VITALS: BP 156/91
[2019-07-04] MEDS: LEVOTHYROXINE 137MCG TABLET (0.137MG) PO SCH (06:00)
[2019-07-04] MEDS: CLOTRIMAZOLE 10 MG TROCHE PO SCH ×4 (06:00→17:00)
[2019-07-04] MEDS: IPRATROPIUM 0.5MG/ALBUTEROL 2.5MG INH SOL UD 3ML (DUONEB)(J7620) NEB PRN (06:18)
[2019-07-04] MEDS: SYMBICORT 160/4.5MCG INHALER 6GM INH SCH ×2 (08:40→20:38)
[2019-07-04] MEDS: CREON-24 CAPSULE PO SCH ×3 (08:55→17:48)
[2019-07-04] MEDS: LOSARTAN 50 MG TAB PO SCH (08:55)
[2019-07-04] MEDS: NEPHRO-VIT TAB (NEPHROCAPS) PO SCH (08:55)
[2019-07-04] MEDS: predniSONE 20 MG TAB PO SCH (08:55)
[2019-07-04] MEDS: OMEPRAZOLE 20 MG CAP PO SCH (08:55)
[2019-07-04] MEDS: SUCROFERRIC OXYHYDROXIDE 500MG CHEW TAB (VELPHORO) PO SCH ×3 (08:55→17:48)
[2019-07-04 08:56] VITALS: BP 163/92
[2019-07-04] MEDS: amLODIPine 10 MG TAB PO SCH (08:56)
[2019-07-04] MEDS: HEPARIN SOD (PORCINE) 5000 UNITS/ML VIAL SC SCH (08:56)
[2019-07-04] MEDS: LORazepam 1 MG TAB PO SCH ×3 (08:56→23:16)
[2019-07-04 13:15] LABS: ALBUMIN 3.1 GM/DL (3.2-5.2); CALCIUM LEVEL 7.7 MG/DL (8.8-10.2); CREATININE FOR GFR 7.32 MG/DL (0.55-1.30); GLOMERULAR FILTRATION RATE 5.9 (>39); PHOSPHORUS LEVEL 5.4 MG/DL (2.5-4.9); POTASSIUM SERUM 5.6 MEQ/L (3.5-5.1)
[2019-07-04 13:41] LABS: HEMATOCRIT 23.5 % (36.0-47.0); HEMOGLOBIN 7.2 g/dl (12.0-15.5); MEAN CORPUSCULAR HEMOGLOBIN 28.6 pg (27.0-33.0); MEAN CORPUSCULAR HGB CONC 30.6 g/dl (32.0-36.5); MEAN CORPUSCULAR VOLUME 93.3 fl (80.0-96.0); PLATELET COUNT, AUTOMATED 231 10^3/uL (150-450); RED BLOOD COUNT 2.52 10^6/uL (4.00-5.40); WHITE BLOOD COUNT 17.1 10^3/uL (4.0-10.0)
--- NOTE | 2019-07-04 15:36 | IPN ---
DATE: 07/03/2019 I was asked to see Karina for restlessness. Also there are some concerns by the nurse that the patient might be experiencing abdominal pain. Patient is unable to describe the pain or severity to me. She is confused, but this is apparently her baseline. Patient has been comfort care. There is talk about possibly going over to hospice tomorrow. The patient has not had lab work in several days. Patient is a dialysis patient and has not had dialysis for several days. Significant comorbidities are advanced chronic obstructive pulmonary disease (COPD) and cachexia and malnourishment. She has had a bowel movement earlier today. She has had no fever. On exam, her abdomen is distended. There are no peritoneal signs. No rebound. No organomegaly. Bowel sounds are active. IMPRESSION: Abdominal pain of uncertain etiology. It appears that conservative measures are in order. Patient does appear to be restless. I see she has scheduled Ativan. We will order her an extra dose of this. It is difficult for me to determine whether she is in pain or whether she is just restless and anxious. I also ordered Milk of Magnesia 30 mL. Again, no testing was ordered. Given the patient's prognosis and plan of care, which has been instituted, I do not think a KUB would provide any meaningful information and would not ion exchange operator.
[2019-07-04] MEDS ORDERED: FLEET ENEMA PR PRN (19:30)
[2019-07-04] MEDS ORDERED: ATROPINE SULFATE 1% OP SOLN 2 ML BTL SL PRN (19:30)
[2019-07-04] MEDS ORDERED: MORPHINE 4 MG/ML 1ML VIAL/SYRINGE (J2270) IV PRN (19:30)
[2019-07-04] MEDS ORDERED: ONDANSETRON 4MG/2ML VIAL (J2405) IV PRN (19:30)
[2019-07-04] MEDS ORDERED: BISACODYL 10 MG SUPP PR PRN (19:30)
[2019-07-04] MEDS ORDERED: SCOPOLAMINE 1MG TRANSDERMAL PATCH TOP PRN (19:30)
[2019-07-04] MEDS ORDERED: ACETAMINOPHEN TAB 650MG DOSE (2X325MG) PO PRN (19:30)
[2019-07-04] MEDS ORDERED: HYOSCYAMINE SULFATE 0.125 MG SUBL TABLET PO PRN (19:30)
--- NOTE | 2019-07-04 19:46 | IPNPDOC ---
Text Note Date of Service The patient was seen on 07/04/19. NOTE Subjective: Patient seen and examined at bedside. No new medical complaints. Patient is lethargic and obtunded in the morning. Objective: General: grossly cachectic, obtunded HEENT: NC/AT, PERRLA, EOMI Lungs: CTA B/L Heart: +S1S2, RRR Abd: soft, NT, +BS Ext: cachectic A/P: 68f with ESRD on HD, copd, hypothyroid, HFpEF, recent admission for pneumonia, who is brought back due to lethargy, inability to eat, and sob after missing two dialysis sessions. She has severe oral thrush for which she was prescribed nystatin solution without much relief. Dr Mena discussed with family that patient does not have indications for dialysis due to failure to thrive and multiple comorbidities. 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 MOLST form was filled by proxy. #DREDGE PUMP OPERATOR #failure to thrive #severe protein calorie malnutrition #ESRD #Thrush #COPD VS,Fishbone, I+O VS, Fishbone, I+O Laboratory Tests 07/04/19 11:45 Red Blood Count 2.52 L, Mean Corpuscular Volume 93.3, Mean Corpuscular Hemoglobin 28.6, Mean Corpuscular Hemoglobin Concent 30.6 L, Red Cell Distribution Width 20.6 H, Anion Gap 10 Vital Signs Date Time Temp Pulse Resp B/P (MAP) Pulse Ox O2 Delivery O2 Flow Rate FiO2 07/04/19 09:00 4.0 07/04/19 08:56 90 163/92 07/04/19 06:40 100 07/04/19 06:00 97.8 22 06/30/19 20:17 Nasal Cannula I&O- Last 24 Hours up to 6 AM 07/04/19 06:00 Intake Total 920 ml Output Total 0 ml Balance 920 ml JUAN DAVID MALIK DO Jul 04, 2019 19:46
--- NOTE | 2019-07-04 20:31 | IPN ---
DATE: 07/04/2019 Mrs. Balckmon is seen this morning on her bedside. She is quite short of breath today. Apparently, the patient's family has declined to bring her home due to her inability to do anything. The patient has been requiring 24-hour care. She is unable to even move herself. The patient has declined fpc, and she also declined hospice care. She has not been able to come to outpatient dialysis, due to which a decision was made for hospice and stopping dialysis. Unfortunately, the patient's family has not been able to reach a final decision about her care. The patient has a DO NOT RESUSCITATE status and has chronic failure to thrive. Discussed with the hospitalist this morning, and we decided to dialyze her due to her worsening respiratory status. I have also called her son and left a message. I am told by nursing staff that the patient's [id number] was in yesterday afternoon and told the nursing staff that family wants everything done until all the family members have an opportunity to get together and make a final decision. The patient is going to be dialyzed this morning, and we will try to reach out to the family to make a final decision for her care. PHYSICAL EXAMINATION: Chronically emaciated and malnourished elderly lady who is quite short of breath. Temperature is 97.8 degrees Fahrenheit, heart rate 88 per minute, respiratory rate 22 per minute, blood pressure 163/92 mm of mercury, and oxygen saturation is about 90%. Severely wasted and emaciated lady lying in the bed. Neck veins are prominent. Heart sounds are irregular in rhythm. Lungs with diminished breath sounds. Abdomen is protuberant with large polycystic kidneys palpable. Extremities have trace edema and no cyanosis or clubbing. PROBLEMS: 1. End-stage renal disease. The patient has not been dialyzed for a few days, as hospice consult was requested; however, the patient declined it. She has complete failure to thrive with inability to come to outpatient dialysis clinic. She is not even able to sit up. I have left a message for her son and will discuss with the family about plans for care. At present, we are going to dialyze her today so that family has a chance to make a final decision. 2. Shortness of breath, most likely related to hypervolemia and uremia. This will be corrected with dialysis, and after discussion with the family will decide if they want to continue with further dialysis treatments and how they are going to transport her back and forth to outpatient dialysis clinic. Only time she has been receiving dialysis is when she is inpatient, and when she goes home she is unable to come back for dialysis. 3. Anemia. We will check her complete blood count (CBC) today and see how her anemia is. There is no emergent indication for transfusion, as her last hemoglobin was 8.9 on June 30. DISPOSITION: Pending discussion with the patient's family. She is a complete failure to thrive. Her prognosis remains guarded. I have been told that the patient's family does not wish to bring her home, and the patient has declined to go to fpc. She has also declined hospice consult. BRANDT
[2019-07-04] MEDS: MORPHINE 10MG/0.5ML ORAL CONCENTRATE SOLUTION U/D SL PRN (23:17)
[2019-07-05] MEDS: LORazepam 1 MG TAB PO PRN ×3 (01:39→10:59)
[2019-07-05] MEDS: MORPHINE 10MG/0.5ML ORAL CONCENTRATE SOLUTION U/D SL PRN ×4 (01:40→23:06)
[2019-07-05] MEDS: IPRATROPIUM 0.5MG/ALBUTEROL 2.5MG INH SOL UD 3ML (DUONEB)(J7620) NEB PRN (03:24)
[2019-07-05] MEDS: SUCROFERRIC OXYHYDROXIDE 500MG CHEW TAB (VELPHORO) PO SCH ×3 (07:46→17:33)
[2019-07-05] MEDS: NEPHRO-VIT TAB (NEPHROCAPS) PO SCH (07:46)
[2019-07-05] MEDS: SYMBICORT 160/4.5MCG INHALER 6GM INH SCH ×3 (07:55→20:00)
[2019-07-05] MEDS: LORazepam 1 MG TAB PO SCH ×3 (07:59→21:11)
--- NOTE | 2019-07-05 08:38 | CR.PDOC ---
General Date of Consultation: Jul 05, 2019 Referring Provider: LA NENA STRINGER MD @ Primary Care Physician: Sarah Pickard Attending Physician: Alon Love MD Consultation REASON FOR CONSULTATION/CHIEF COMPLAINT: 68 year old female ESRD, failure to thrive awaiting placement at hospice residence. No beds available. 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 ALLERGIES: Please see below. HOME MEDICATIONS: Please see below. PAST MEDICAL HISTORY: 1. ESRD 2. Dyspnea SOCIAL HISTORY: Marital status and/or living arrangements: was living with family members, they are not able to care for her a t home any more due to need for total care REVIEW OF SYSTEMS: CONSTITUTIONAL: no fvers, barely able to express needs HEENT: dry mouth CARDIOVASCULAR: no chest pain or palp. RESPIRATORY: dyspneic at rest, secretions are audible without stethescope GENITOURINARY: incontinent, denies dysuria MUSCULOSKELETAL: denies joint or muscular pain GASTROINTESTINAL: constipation, denies abdominal pain since fluid removed in dialysis SKIN: scattered bruising NEUROLOGICAL: arousable, cannot make needs [place] due to dyspnea PSYCHIATRIC: denies depression, nusring reports periodic restlessness ENDOCRINE: NA HEMATOLOGIC/LYMPHATIC: [na ALLERGIC/IMMUNOLOGIC: na. PHYSICAL EXAMINATION: VITAL SIGNS: Please see below. GENERAL APPEARANCE: very frail cachectic appearing female resting in bed with au dible respiratroy secretions HEENT: mucouse membranes dry RESPIRATORY: expiratory wheezes, secretions audible in airway, decreased breath sounds CARDIOVASCULAR: irregular. ABDOMEN: +BS, firm no rebound guarding EXTREMITIES: no cyanosis, clubbing. no edema NEUROLOGICAL: arousable , appears to understand my questions but has difficulty answering questions due to dyspnea. PSYCHIATRIC: appears anxious, but does deny any pain LABORATORY DATA: Please see below. ASSESSMENT/PLAN: 1. ESRD and failure to thrive: I suggest changing morphine 5 mg q 2 hr sl to around the clock, patient may refuse rather than prn dosing. This will probably eliminate the need for IV morphine and may reduce her anxiety and dyspnea. 2. MOLST is completed. In my clinical opinion, this lady will likely pass away within hours to days. I do not know if any beds will become available at hospice residence at any point in the near future so this is likely to occur here. Vital Signs/I&O Vital Signs Date Time Temp Pulse Resp B/P (MAP) Pulse Ox O2 Delivery O2 Flow Rate FiO2 07/05/19 05:28 4.0 07/04/19 08:56 90 163/92 07/04/19 06:40 100 07/04/19 06:00 97.8 22 06/30/19 20:17 Nasal Cannula I&O- Last 24 Hours up to 6 AM 07/05/19 06:00 Intake Total 220 ml Output Total 1750 ml Balance -1530 ml Laboratory Data Labs 24H Laboratory Tests 2 07/04/19 11:45: Nucleated Red Blood Cells % (auto) 0.0, Blood Urea Nitrogen 138H, Creatinine 7.32H, Sodium Level 146H, Potassium Level 5.6H, Chloride Level 109H, Carbon Dioxide Level 27, Anion Gap 10, Glomerular Filtration Rate 5.9L, Calcium Level 7.7L, Phosphorus Level 5.4H, Albumin 3.1L CBC/BMP Laboratory Tests 07/04/19 11:45 Red Blood Count 2.52 L, Mean Corpuscular Volume 93.3, Mean Corpuscular Hemoglobin 28.6, Mean Corpuscular Hemoglobin Concent 30.6 L, Red Cell Distr ibution Width 20.6 H, Anion Gap 10 Microbiology Microbiology 06/26/19 Blood Culture - Final, Complete NO GROWTH AFTER 5 DAYS 06/26/19 Blood Culture - Final, Complete NO GROWTH AFTER 5 DAYS 06/25/19 Blood Culture - Final, Complete Staphylococcus Epidermidis 06/25/19 Blood Culture - Final, Complete NO GROWTH AFTER 5 DAYS Allergies Coded Allergies: lisinopril (Verified Allergy, Severe, ANGIOEDEMA, 02/19/19) codeine (Verified Adverse Reaction, Mild, GI UPSET, 02/19/19) Home Medications Scheduled Amlodipine Besylate (Amlodipine Besylate) 10 Mg Tab, 10 MG PO DAILY, (Reported) Aspirin (Aspirin EC) 81 Mg Tabec, 81 MG PO 4XWK, (Reported) TAKES ON NON DIALYSIS DAYS, TUES, TH, SAT, SUN Budesonide/Formoterol (Symbicort 160-4.5 Mcg Inhaler) 60 Puff/Inhaler Aers, 2 PUFF INH BID, (Reported) Folic Acid/Vit B Complex and C (Arielle-Roby Tablet) 1 Tab Tab, 1 TAB PO DAILY, (Reported) Levothyroxine Sodium (Synthroid) 137 Mcg Tab, 137 MCG PO DAILY, (Reported) Lidocaine/Prilocaine (Lidocaine-Prilocaine Cream) 2.5%/2.5% Cream..g., 1 APLCT TOP ASDIRECTED, (Reported) APPLIES A SMALL AMOUNT TO ACCESS SITE ON DIALYSIS DAYS Lorazepam (Ativan) 1 Mg Tablet, 1 MG PO TID, (Reported) Losartan Potassium (Losartan Potassium) 100 Mg Tab, 100 MG PO DAILY, (Reported) Nystatin (Nystatin Oral Susp) 100,000 Unit/1 Ml Oral.susp, 5 ML SS Q6H for 6 Days, #120 Omeprazole (Omeprazole) 20 Mg Capsule.dr, 20 MG PO DAILY, (Reported) Pancreatic Enzymes (Creon Dr 24,000 Units Capsule) 1 Ea Capcr, 1 CAP PO TID, (Reported) Sucroferric Oxyhydroxide (Velphoro) 500 Mg Chw, 500 MG PO WM, (Reported) Scheduled PRN Albuterol Sulf (Albuterol Sulfate) 2.5 Mg/3 Ml Nebu, 2.5 MG INH Q4H PRN for SHORTNESS OF BREATH, (Reported) Albuterol Sulfate (Proair Hfa) 108 Mcg/Act Aer, 2 PUFFS INH Q4H PRN for SHORTNESS OF BREATH, (Reported) Diclofenac Sodium (Diclofenac Sodium) 1% 100GM Gel..gram., 1 APLCT TOP TID PRN for NECK PAIN, (Reported) Ipratropium [place] (Atrovent Hfa) 17 Mcg/Act Aer, 2 PUFFS INH QID PRN for SHORTNESS OF BREATH, (Reported) Linda MARTINEZ ELECTRIC DEICER INSPECTOR Jul 05, 2019 08:38
--- NOTE | 2019-07-05 20:41 | IPN ---
DATE: 07/05/2019 Ms. Blackmon was seen yesterday and we dialyzed her. I had talked to her son over the phone yesterday and discussed about plan of care. She has complete failure to thrive and has been doing very poorly for the last several months. Family could not take care of her at home and they did not wish to bring her home. The patient has been unable to come for outpatient dialysis. She has end-stage lung disease and is very debilitated and unable to even move herself in the bed. Family was given all of the options and they decided to stop dialysis and make her COMFORT MEASURES ONLY yesterday. Her COMFORT MEASURES ONLY (BREASTFEEDING PROGRAM COORDINATOR) orders are in effect. Nephrology service is signing off the case at present.
[2019-07-06] MEDS: LORazepam 1 MG TAB PO PRN ×5 (00:16→17:38)
[2019-07-06] MEDS: MORPHINE 10MG/0.5ML ORAL CONCENTRATE SOLUTION U/D SL PRN ×6 (01:25→21:06)
[2019-07-06] MEDS: SYMBICORT 160/4.5MCG INHALER 6GM INH SCH ×2 (07:42→20:00)
[2019-07-06] MEDS: SUCROFERRIC OXYHYDROXIDE 500MG CHEW TAB (VELPHORO) PO SCH ×3 (08:00→17:16)
[2019-07-06] MEDS: NEPHRO-VIT TAB (NEPHROCAPS) PO SCH (08:38)
[2019-07-06] MEDS: LORazepam 1 MG TAB PO SCH ×3 (08:39→20:40)
[2019-07-06] MEDS ORDERED: LORazepam 2 MG TAB PO PRN (19:00)
--- NOTE | 2019-07-07 01:02 | DS.PDOC ---
Discharge Summary General Date of Admission Jun 25, 2019 at 12:51 Date of Discharge Jul 07 2019 Primary Care Physician: Sarah Pickard Attending Physician: JUAN DAVID MALIK DO Discharge Summary TIME OF SERVICE 12:15 AM PROCEDURES PERFORMED DURING STAY: [None]. ADMITTING DIAGNOSES: 1. Lethargy and weakness. 2. ESRD. 3. Thrush. DISCHARGE DIAGNOSES: 1. Suspected cardiac arrest likely due to metabolic acidosis in the setting of renal failure COMPLICATIONS/CHIEF COMPLAINT: Copd With Chronic Bronchitis Esrd Thrush. HISTORY OF PRESENT ILLNESS: Ms. Blackmon is a 68-year-old female who was admitted on June 25 because of lethargy, inability to eat and shortness of breath after missing 2 sessions of dialysis. She appeared to have failure to thrive. HOSPITAL COURSE: She was admitted to the general medical floor and evaluated by nephrology recommended that she there were no indications for additional dialysis center because of failure to thrive and multiple medical comorbidities. Family transition to comfort measures only status on July 04. She at 11:45 PM on 07/06/2019 DISCHARGE MEDICATIONS: Please see below. ALLERGIES: Please see below. PHYSICAL EXAMINATION ON DISCHARGE: VITAL SIGNS: Not applicable GENERAL: Unresponsive / cachectic CARDIOVASCULAR EXAMINATION: No heart sounds RESPIRATORY EXAMINATION: No breath sounds SKIN: Generalized pallor LABORATORY DATA: Please see below. IMAGING: Permanent medical record PROGNOSIS: Not applicable DISCHARGE PLAN: As for her body to the [facility] TIME SPENT ON DISCHARGE: Greater than 15 minutes. Vital Signs/I&Os Vital Signs Date Time Temp Pulse Resp B/P (MAP) Pulse Ox O2 Delivery O2 Flow Rate FiO2 07/06/19 21:36 16 07/05/19 05:28 4.0 07/04/19 08:56 90 163/92 07/04/19 06:40 100 07/04/19 06:00 97.8 I&O- Last 24 Hours up to 6 AM 07/07/19 06:00 Intake Total 0 ml Output Total 0 ml Balance 0 ml Discharge Medications Scheduled Amlodipine Besylate (Amlodipine Besylate) 10 Mg Tab, 10 MG PO DAILY, (Reported) Aspirin (Aspirin EC) 81 Mg Tabec, 81 MG PO 4XWK, (Reported) TAKES ON NON DIALYSIS DAYS, TUES, THURS, SAT, SUN Budesonide/Formoterol (Symbicort 160-4.5 Mcg Inhaler) 60 Puff/Inhaler Aers, 2 PUFF INH BID, (Reported) Folic Acid/Vit B Complex and C (Arielle-Roby Tablet) 1 Tab Tab, 1 TAB PO DAILY, (Reported) Levothyroxine Sodium (Synthroid) 137 Mcg Tab, 137 MCG PO DAILY, (Reported) Lidocaine/Prilocaine (Lidocaine-Prilocaine Cream) 2.5%/2.5% Cream..g., 1 APLCT TOP ASDIRECTED, (Reported) APPLIES A SMALL AMOUNT TO ACCESS SITE ON DIALYSIS DAYS Lorazepam (Ativan) 1 Mg Tablet, 1 MG PO TID, (Reported) Losartan Potassium (Losartan Potassium) 100 Mg Tab, 100 MG PO DAILY, (Reported) Nystatin (Nystatin Oral Susp) 100,000 Unit/1 Ml Oral.susp, 5 ML SS Q6H Omeprazole (Omeprazole) 20 Mg Capsule.dr, 20 MG PO DAILY, (Reported) Pancreatic Enzymes (Creon Dr 24,000 Units Capsule) 1 Ea Capcr, 1 CAP PO TID, (Reported) Sucroferric Oxyhydroxide (Velphoro) 500 Mg Chw, 500 MG PO WM, (Reported) Scheduled PRN Albuterol Sulf (Albuterol Sulfate) 2.5 Mg/3 Ml Nebu, 2.5 MG INH Q4H PRN for SHORTNESS OF BREATH, (Reported) Albuterol Sulfate (Proair Hfa) 108 Mcg/Act Aer, 2 PUFFS INH Q4H PRN for SHORTNESS OF BREATH, (Reported) Diclofenac Sodium (Diclofenac Sodium) 1% 100GM Gel..gram., 1 APLCT TOP TID PRN for NECK PAIN, (Reported) Ipratropium [place] (Atrovent Hfa) 17 Mcg/Act Aer, 2 PUFFS INH QID PRN for SHORTNESS OF BREATH, (Reported) Allergies Coded Allergies: lisinopril (Verified Allergy, Severe, ANGIOEDEMA, 02/19/19) codeine (Verified Adverse Reaction, Mild, GI UPSET, 02/19/19) SON ANN MD Jul 07, 2019 01:02
== END 2019-07-06 23:45 | disposition expired | DRG 682 ==
LOC: M ED 08:43 → EDBD 08:43 → M ED INP 12:51 → M MSPAV 14:06
PROVIDERS: ADMIT Hospitalist; ATTEND Internal Medicine
DX: N18.6 End stage renal disease (principal); I50.31 Acute diastolic (congestive) heart failure; E43 Unspecified severe protein-calorie malnutrition; Q61.2 Polycystic kidney, adult type; B37.0 Candidal stomatitis; Z68.1 Body mass index [BMI] 19.9 or less, adult; J44.1 Chronic obstructive pulmonary disease with (acute) exacerbation; E87.2 Acidosis; R62.7 Adult failure to thrive; Z91.15 Patient's noncompliance with renal dialysis; E87.70 Fluid overload, unspecified; R53.83 Other fatigue; Z79.899 Other long term (current) drug therapy; Z79.82 Long term (current) use of aspirin; Z88.5 Allergy status to narcotic agent; Z88.8 Allergy status to other drugs, medicaments and biological substances; E03.9 Hypothyroidism, unspecified; Z99.81 Dependence on supplemental oxygen; F17.200 Nicotine dependence, unspecified, uncomplicated; Z51.5 Encounter for palliative care; Z66 Do not resuscitate